=== PATIENT | female | born 1930 | race Caucasian/White ===

== ENCOUNTER 2017-06-22 08:46 | Inpatient (IN) | payer OTHER ==
[2017-06-22] MEDS ORDERED: FUROSEMIDE 40 MG/4 ML VIAL ONE (09:24)
[2017-06-22] MEDS ORDERED: LEVALBUTEROL 1.25 MG/3 ML NEB ONE (09:24)
[2017-06-22] MEDS ORDERED: IPRATROPIUM BROM 0.5MG/2.5ML ONE (09:24)
[2017-06-22 09:39] LABS: Absolute Monocytes 0.6 K/uL (0.1-1.3); Absolute Neutrophil 4.9 K/uL (1.8-8.0); Basophils % 0.5 % (0-1.3); Eosinophils % 11.3 % (0-4.4); Hematocrit 25.6 % (36.0-45.0); Lymphocytes % 13.6 % (15.3-44.8); MCH 29.1 pg (27.0-35.0); MCV 88.6 fL (80-100); MPV 8.9 fL (7.6-11.3); Monocytes % 8.5 % (3.3-12.3); RBC Red Blood Cell Count 2.89 M/uL (3.86-4.86)
[2017-06-22 09:43] LABS: Protime INR 0.97
[2017-06-22 09:50] LABS: Potassium 3.9 mEq/L (3.6-5.0)
[2017-06-22 09:51] LABS: Magnesium 2.2 mg/dL (1.8-2.5)
--- NOTE | 2017-06-22 10:24 | RAD REPORT ---
EXAM DESCRIPTION: Td Single View06/22/2017 9:20 am CLINICAL HISTORY: sob COMPARISON: none FINDINGS: Mild bilateral interstitial lung opacities are present. The heart is mildly enlarged. Pac emaker leads are in place IMPRESSION: Mild CHF
[2017-06-22 11:13] LABS: Urine Blood NEGATIVE (NEG); Urine Glucose NEGATIVE (NEG); Urine Protein 2+ (NEG); Urine Specific Gravity 1.015 (1.005-1.030); Urine pH 5.5 (5.0-7.0)
--- NOTE | 2017-06-22 11:33 | ER ---
Nurse's Notes [facility] Name: Bárbara Thakkar Age: 87 yrs Sex: Female : 1930 Arrival Date: 06/22/2017 Time: 08:51 Bed 2 Private MD: Diagnosis: Unspecified combined systolic (congestive) and diastolic (congestive) heart failure;Acute pulmonary edema;Dyspnea, unspecified Presentation: 06/22 08:51 Presenting complaint: EMS states: Hx of COPD and CHF, c/o SOB x 3 days which has become ph increasingly worse, spo2 94% on 4L home o2, pt usually uses 2L continuous, breathing tx and Solu-Medrol administered, pt also c/o increased swelling in lower extremities. Transition of care: patient was not received from another setting of care. Onset of symptoms was June 22, 2017. Initial Sepsis Screen: Does the patient meet any 2 criteria? No. Patient's initial sepsis screen is negative. Does the patient have a suspected source of infection? No. Patient's initial sepsis screen is negative. Care prior to arrival: None. 08:51 Method Of Arrival: EMS: [facility] ph 08:51 Acuity: CECE 2 ph Triage Assessment: 09:00 Respiratory: Onset: The symptoms/episode began/occurred gradually. ph Historical: - Allergies: 08:56 acetylcysteine; ph 08:56 Ciprofloxacin; ph 08:56 Iodinated Contrast Media - IV Dye; ph 08:56 PENICILLINS; ph - Home Meds: 12:32 Advair Diskus 250-50 mcg/dose Inhl dsdv 1 puff 2 times per day [Active]; albuterol ph sulfate 2.5 mg /3 mL (0.083 %) Inhl nebu [Active]; amlodipine 10 mg tab 1 tab once daily [Active]; aspirin 81 mg Oral chew 1 tab once daily [Active]; carvedilol 25 mg Oral tab 1 tab 2 times per day [Active]; Cozaar 100 mg Oral tab 1 tab once daily [Active]; ferrous gluconate 240 mg (27 mg iron) Oral tab daily [Active]; ipratropium bromide 0.02 % inhalation soln [Active]; Lasix 20 mg Oral tab 1 tab once daily [Active]; Plavix 75 mg Oral tab 1 tab once daily [Active]; pravastatin 80 mg Oral tab 1 tab once daily [Active]; - PMHx: 12:32 COPD; High Cholesterol; Hypertension; Pacemaker; ph - PSHx: 12:32 Appendectomy; Tonsillectomy; Stents; ph - Immunization history:: Adult Immunizations unknown. - Social history:: Smoking status: Patient/guardian denies using tobacco. - Family history:: not pertinent. - Hospitalizations: : No recent hospitalization is reported. Screenin:57 Abuse screen: Denies threats or abuse. Denies injuries from another. Nutritional ph screening: No deficits noted. Tuberculosis screening: No symptoms or risk factors identified. Fall Risk None identified. Assessment: 09:00 General: Appears in no apparent distress. uncomfortable, Behavior is calm, cooperative, ph appropriate for age, Denies fever. Pain: Denies pain. Neuro: Level of Consciousness is awake, alert, obeys commands, Oriented to person, place, time, situation. Cardiovascular: Reports shortness of breath, Denies chest pain, nausea, vomiting, Capillary refill < 3 seconds Patient's skin is warm and dry. Edema is 3+ to right wrist, right hand, left midcalf, left ankle, left foot, right midcalf, right ankle and right foot Rhythm is regular. Respiratory: Reports shortness of breath at rest cough that is Airway is patent Respiratory effort is even, labored, Respiratory pattern is tachypnea Breath sounds with crackles in left posterior lower lobe and right posterior lower lobe Breath sounds with wheezes bilaterally. the patient has moderate shortness of breath. GI: No signs and/or symptoms were reported involving the gastrointestinal system. Derm: Skin is intact, is fragile, is thin, Skin is pink, warm \T\ dry. Musculoskeletal: Circulation, motion, and sensation intact. Range of motion: intact in all extremities. 10:01 Reassessment: Patient appears in no apparent distress at this time. Patient and/or ph family updated on plan of care and expected duration. Pain level reassessed. Patient is alert, oriented x 3, equal unlabored respirations, skin warm/dry/pink. Pt resting quietly, neb mask in place, denies pain, VSS, will continue to monitor. 12:28 Reassessment: Patient appears in no apparent distress at this time. Patient and/or ph family updated on plan of care and expected duration. Pain level reassessed. Patient is alert, oriented x 3, equal unlabored respirations, skin warm/dry/pink. Pt resting quietly w/ eyes closed, respirations even and unlabored, awakens easily, deniers pain and reports that SOB is improving, VSS, awaiting admit orders and room assignment. 13:55 Reassessment: Patient appears in no apparent distress at this time. No changes from ph previously documented assessment. Patient and/or family updated on plan of care and expected duration. Pain level reassessed. Attempted to call report, receiving nurse at lunch, will call back. 14:20 Reassessment: Report called to JOSSELYN Baeza. ph Vital Signs: 08:54 BP 130 / 54; Pulse 62; Resp 24; Temp 97.6; Pulse Ox 100% on Nebulizer Mask; Weight ph 61.23 kg; Height 4 ft. 11 in. (149.86 cm); Pain 0/10; 08:54 BP 123 / 60; Pulse 64; Resp 24; Pulse Ox 100% on Nebulizer Mask; ph 10:15 BP 127 / 64; Pulse 68; Resp 24; Pulse Ox 98% on 4 lpm NC; ph 11:30 BP 125 / 62; Pulse 67; Resp 18; Pulse Ox 99% on 4 lpm NC; ph 12:33 BP 124 / 68; Pulse 76; Resp 18; Pulse Ox 99% on 4 lpm NC; ph 13:58 BP 130 / 66; Pulse 70; Resp 18; Temp 97.2; Pulse Ox 99% on 2 lpm NC; ph 08:54 Body Mass Index 27.26 (61.23 kg, 149.86 cm) ph ED Course: 08:51 Patient arrived in ED. ph 08:53 Tommie Conley MD is Attending Physician. rn 08:54 Triage completed. ph 08:57 Arm band placed on. EKG completed in triage. Results shown to MD. ph 08:57 Patient has correct armband on for positive identification. Placed in gown. Bed in low ph position. Call light in reach. air sampling and monitoring on. Pulse ox on. NIBP on. Warm blanket given. 09:00 Brandi Decker RN is Primary Nurse. ph 09:10 Inserted saline lock: 20 gauge in left antecubital area, using aseptic technique. Blood ph collected. 09:17 X-ray completed. Portable x-ray completed in exam room. Patient tolerated procedure jr1 well. 09:18 XRAY CXR (1 view) In Process Unspecified. EDMS 10:04 No provider procedures requiring assistance completed. Patient admitted, IV remains in ph place. 11:32 Chrissy More MD is Hospitalizing Provider. 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 ph 13:30 Urine: 550ml; Total: 850ml. ph Outcome: 11:32 Decision to Hospitalize by Provider. rn 14:41 Patient left the ED. ph 14:41 Admitted to Tele accompanied by tech, via wheelchair, room 409, with oxygen, with chart.ph 14:41 Condition: stable 14:41 Instructed on the need for admit. Signatures: Dispatcher [employer] EDMS Navdeep Mariah [email or web address] Tommie Conley MD MD rn Hall, Patricia, RN RN ph Corrections: (The following items were deleted from the chart) 10:05 09:00 Respiratory: Reports shortness of breath at rest cough that is Airway is patent ph Respiratory effort is even, labored, Respiratory pattern is tachypnea ph 10:09 08:54 Pulse 62bpm; Resp 24bpm; Pulse Ox 100% Nebulizer Mask; Temp 97.6F; 61.23 kg; ph Height 4 ft. 11 in.; BMI: 27.2; Pain 0/10; ph
--- NOTE | 2017-06-22 11:33 | EDPHYS ---
Physician Documentation [facility] Name: Bárbara Thakkar Age: 87 yrs Sex: Female : 1930 Arrival Date: 06/22/2017 Time: 08:51 Bed 2 Private MD: ED Physician Tommie Conley HPI: 06/22 09:30 This 87 yrs old Female presents to ER via EMS with complaints of Shortness Of rn Breath. 09:30 The patient has shortness of breath at rest, with light activity. rn 09:30 Onset: The symptoms/episode began/occurred 3 day(s) ago. Duration: The symptoms are rn continuous. The patient's shortness of breath is aggravated by exertion, light activity, supine position, talking, walking. Associated signs and symptoms: Pertinent positives: non-productive cough, Pertinent negatives: fever. The patient has experienced similar episodes in the past. Reports 3 days of worsening sob, + non-productive cough, no fever, can only take a few steps before sob. . Historical: - Allergies: 08:56 acetylcysteine; ph 08:56 Ciprofloxacin; ph 08:56 Iodinated Contrast Media - IV Dye; ph 08:56 PENICILLINS; ph - Home Meds: 12:32 Advair Diskus 250-50 mcg/dose Inhl dsdv 1 puff 2 times per day [Active]; albuterol ph sulfate 2.5 mg /3 mL (0.083 %) Inhl nebu [Active]; amlodipine 10 mg tab 1 tab once daily [Active]; aspirin 81 mg Oral chew 1 tab once daily [Active]; carvedilol 25 mg Oral tab 1 tab 2 times per day [Active]; Cozaar 100 mg Oral tab 1 tab once daily [Active]; ferrous gluconate 240 mg (27 mg iron) Oral tab daily [Active]; ipratropium bromide 0.02 % inhalation soln [Active]; Lasix 20 mg Oral tab 1 tab once daily [Active]; Plavix 75 mg Oral tab 1 tab once daily [Active]; pravastatin 80 mg Oral tab 1 tab once daily [Active]; - PMHx: 12:32 COPD; High Cholesterol; Hypertension; Pacemaker; ph - PSHx: 12:32 Appendectomy; Tonsillectomy; Stents; ph - Immunization history:: Adult Immunizations unknown. - Social history:: Smoking status: Patient/guardian denies using tobacco. - Family history:: not pertinent. - Hospitalizations: : No recent hospitalization is reported. ROS: 09:30 Constitutional: Negative for fever, chills, and weight loss, Eyes: Negative for injury, rn pain, redness, and discharge, Cardiovascular: + edema of lower extremities Respiratory: + sob and cough Abdomen/GI: Negative for abdominal pain, nausea, vomiting, diarrhea, and constipation, Back: Negative for injury and pain, MS/Extremity: + bilateral lower ext swelling, 2+ edema Skin: Negative for injury, rash, and discoloration, Neuro: Negative for headache, weakness, numbness, tingling, and seizure. Exam: 09:30 Constitutional: This is a well developed, well nourished patient who is awake, alert, rn + mild tachypnea Head/Face: Normocephalic, atraumatic. Eyes: Pupils equal round and reactive to light, extra-ocular motions intact. Lids and lashes normal. Conjunctiva and sclera are non-icteric and not injected. Cornea within normal limits. Periorbital areas with no swelling, redness, or edema. Cardiovascular: Regular, no murmur Respiratory: + mild tachypnea, diffuse exp wheezing Abdomen/GI: Soft, non-tender, with normal bowel sounds. No distension or tympany. No guarding or rebound. No evidence of tenderness throughout. MS/ Extremity: 2+ pitting edema bilateral lower ext Neuro: Awake and alert, GCS 15, oriented to person, place, time, and situation. Cranial nerves II-XII grossly intact. Motor strength 5/5 in all extremities. Sensory grossly intact. Vital Signs: 08:54 BP 130 / 54; Pulse 62; Resp 24; Temp 97.6; Pulse Ox 100% on Nebulizer Mask; Weight ph 61.23 kg; Height 4 ft. 11 in. (149.86 cm); Pain 0/10; 08:54 BP 123 / 60; Pulse 64; Resp 24; Pulse Ox 100% on Nebulizer Mask; ph 10:15 BP 127 / 64; Pulse 68; Resp 24; Pulse Ox 98% on 4 lpm NC; ph 11:30 BP 125 / 62; Pulse 67; Resp 18; Pulse Ox 99% on 4 lpm NC; ph 12:33 BP 124 / 68; Pulse 76; Resp 18; Pulse Ox 99% on 4 lpm NC; ph 13:58 BP 130 / 66; Pulse 70; Resp 18; Temp 97.2; Pulse Ox 99% on 2 lpm NC; ph 08:54 Body Mass Index 27.26 (61.23 kg, 149.86 cm) ph MDM: 08:53 Patient medically screened. rn 11:25 Differential diagnosis: Bronchitis CHF exacerbation, Chronic Obstructive Pulmonary rn Disease Myocardial Infarction pneumonia, Pneumothorax pulmonary edema. Data reviewed: vital signs, nurses notes, lab test result(s), EKG, radiologic studies, plain films, and as a result, I will admit patient. Counseling: I had a detailed discussion with the patient and/or guardian regarding: the historical points, exam findings, and any diagnostic results supporting the discharge/admit diagnosis, lab results, radiology results, the need for further work-up and treatment in the hospital. Admission orders: after a detailed discussion of the patient's condition and case, the admit orders are written by me. 06/22 08:57 Order name: Blood Culture Adult (2) rn 06/22 08:57 Order name: BMP; Complete Time: 10:05 rn 06/22 08:57 Order name: BNP; Complete Time: 10:05 rn 06/22 08:57 Order name: CBC with Diff; Complete Time: 10:05 rn 06/22 08:57 Order name: Magnesium; Complete Time: 10:05 rn 06/22 08:57 Order name: PT-INR; Complete Time: 10:05 rn 06/22 08:57 Order name: XRAY CXR (1 view); Complete Time: 10:26 rn 06/22 08:57 Order name: Ptt, Activated; Complete Time: 10:05 rn 06/22 08:57 Order name: Troponin (emerg Dept Use Only); Complete Time: 10:05 rn 06/22 08:58 Order name: Blood Culture EDMS 06/22 10:54 Order name: Urine Dipstick--Ancillary (enter results) eb 06/22 08:57 Order name: EKG; Complete Time: 08:58 rn 06/22 08:57 Order name: Cardiac monitoring; Complete Time: 09:46 rn 06/22 08:57 Order name: EKG - Nurse/Tech; Complete Time: 09:46 rn 06/22 08:57 Order name: IV Saline Lock; Complete Time: 09:46 rn 06/22 08:57 Order name: Labs collected and sent; Complete Time: :46 rn 06/22 08:57 Order name: O2 Per Protocol; Complete Time: : rn 06/22 08:57 Order name: O2 Sat Monitoring; Complete Time: : rn Administered Medications: 09:15 Drug: AtroVENT Aerosol 0.5 mg Route: Inhalation; ph 11:00 Follow up: Response: No adverse reaction; Wheezing diminished ph 09:15 Drug: Xopenex (3) 1.25 mg Route: Inhalation; ph 11:00 Follow up: Response: No adverse reaction; Wheezing diminished ph 09:15 Drug: Lasix 40 mg Route: IVP; Site: left antecubital; ph 13:30 Follow up: Urine output 550 ml; Response: No adverse reaction ph 09:46 Not Given (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 Preliminary diagnosis are Unspecified combined systolic (congestive) and diastolic (congestive) heart failure, Acute pulmonary edema, Dyspnea, unspecified. - Bed requested for Telemetry/MedSurg (Inpatient). - Status is Inpatient Admission. ph - Condition is Stable. - Problem is an acute exacerbation. - Symptoms have improved. UTI on Admission? No Signatures: Dispatcher [employer] EDMS Tommie Conley MD MD rn Hall, Patricia, RN RN ph Botello, Elizabeth eb Corrections: (The following items were deleted from the chart) 11:36 11:32 Hospitalization Ordered by Chrissy More MD for Inpatient Admission. Preliminary eb diagnosis is Unspecified combined systolic (congestive) and diastolic (congestive) heart failure; Acute pulmonary edema; Dyspnea, unspecified. Bed requested for Telemetry/MedSurg (Inpatient). Status is Inpatient Admission. Condition is Stable. Problem is an acute exacerbation. Symptoms have improved. UTI on Admission? No. rn 12:29 11:36 06/22/2017 11:32 Hospitalization Ordered by Chrissy More MD for Inpatient eb Admission. Preliminary diagnosis is Unspecified combined systolic (congestive) and diastolic (congestive) heart failure; Acute pulmonary edema; Dyspnea, unspecified. Bed requested for Telemetry/MedSurg (Inpatient). Status is Inpatient Admission. Condition is Stable. Problem is an acute exacerbation. Symptoms have improved. UTI on Admission? No. eb 12:38 12:29 06/22/2017 11:32 Hospitalization Ordered by Chrissy More MD for Inpatient eb Admission. Preliminary diagnosis is Unspecified combined systolic (congestive) and diastolic (congestive) heart failure; Acute pulmonary edema; Dyspnea, unspecified. Bed requested for Telemetry/MedSurg (Inpatient). Status is Inpatient Admission. Condition is Stable. Problem is an acute exacerbation. Symptoms have improved. UTI on Admission? No. eb 14:41 12:38 06/22/2017 11:32 Hospitalization Ordered by Chrissy More MD for Inpatient ph Admission. Preliminary diagnosis is Unspecified combined systolic (congestive) and diastolic (congestive) heart failure; Acute pulmonary edema; Dyspnea, unspecified. Bed requested for Telemetry/MedSurg (Inpatient). Status is Inpatient Admission. Condition is Stable. Problem is an acute exacerbation. Symptoms have improved. UTI on Admission? No. eb
[2017-06-22] MEDS ORDERED: ACETAMINOPHEN 500 MG TAB PO PRN (12:13)
[2017-06-22] MEDS ORDERED: ONDANSETRON 4 MG/2 ML VIAL IV PRN (12:13)
[2017-06-22] MEDS: IPRATROPIUM BROM 0.5MG/2.5ML NEB SCH ×2 (14:00→19:50)
[2017-06-22] MEDS: FUROSEMIDE 40 MG/4 ML VIAL IV SCH (16:50)
[2017-06-22] MEDS: ENOXAPARIN 30 MG/0.3 ML SQ SCH (16:50)
[2017-06-22] MEDS: CARVEDILOL 25 MG TAB PO SCH (17:07)
[2017-06-22] MEDS: FLUTICASONE IH SCH (21:00)
[2017-06-22] MEDS: SALMETEROL IH SCH (21:00)
[2017-06-22] MEDS ORDERED: HOME MED 1 EA UNK (Pravastatin [Pravachol*] 80 MG) PO SCH (21:00)
[2017-06-22] MEDS: predniSONE 10 MG TAB PO SCH (22:04)
[2017-06-22] MEDS: ATORVASTATIN 10 MG TAB PO SCH (22:04)
--- NOTE | 2017-06-22 23:48 | HP ---
Date of Admission: 06/22/2017 Primary Care Physician: Abhinav Curiel DO. Chief Complaint: Shortness of breath. History Of Present Illness: The patient is an 87-year-old female with past medical history of COPD, CHF, hypertension, atrial fibrillation, GERD, anemia, history of AR, status post pacemaker, who was in her usual state of health until the day prior to admission when the patient started having sudden onset of shortness of breath. The patient does state some generalized weakness. Denies any fevers, chills. Reports some lower extremity edema. She states that she decreased her dose of Lasix as she thought that the 40 mg was too high and she had finished off a course of steroids recently. The patient denies any cough or sputum production. No ill contacts. The patient comes in for further evaluation of her shortness of breath. Her symptoms are constant, moderate, progressively worsening. No alleviating or aggravating factors. In the ER, the patient was found to be slightly tachypneic. Her workup revealed normal white count. Her BNP was elevated at 1200. Her chest x-ray showed mild CHF pattern. The patient was then referred for admission. When seen in the ER, the patient was awake, alert, oriented x3, in some mild distress. Past Medical History: COPD, hypertension, atrial fibrillation, GERD, anemia, AR. Surgical History: Permanent pacemaker [place] [address] Narvaez, coronary stents, kidney stents and stent to each leg, bilateral lens implants, bilateral carpal tunnel repair, hysterectomy, appendectomy, tonsillectomy. Allergies: TO ACETYLCYSTEINE, IODINATED CONTRAST, CIPRO, PENICILLIN. Medications: Reviewed. Social History: The patient is a former heavy smoker. No alcohol use or illicit drug use. Lives at home with her son. Uses a walker for ambulation. Family History: Mother of heart disease and diabetes. Mother of an AR. Sister has diabetes. Review of Systems: An 11-point system reviewed, negative except as per HPI. Physical Examination: Vital Signs: Blood pressure 130/54, pulse 62, respirations 24, temperature 97.6 , pulse ox 100% on nebulizer mask. General: Awake, alert, oriented x3. Some mild distress. Elderly female. HEENT: Normocephalic, atraumatic. PERRLA. EOMI. Dry mucous membranes. Oropharynx is clear. Conjunctivae are anicteric. Neck: Supple. Trachea midline. CV: S1, S2. Regular rate and rhythm. Peripheral pulses are weak bilaterally. No murmurs. Respiratory: Diminished breath sounds. Some crackles heard at the bases. No wheezing. No stridor. No use of accessory muscles. Gastrointestinal: Abdomen is soft, nontender, nondistended. Positive bowel sounds. No guarding or rigidity. Extremities: No clubbing, cyanosis. The patient does have lower extremity edema. Skin: The patient has excoriated skin on the lower extremities and chronic venous stasis changes of the lower extremities. Neuro: Cranial nerves 2 through 12 intact grossly. No focal neurological deficits. Strength is 5/5 bilateral upper and lower extremities. Sensation intact to light touch. Speech is normal. No facial asymmetry. Psych: Mood is okay. Affect is full. Insight and judgment are good. Laboratory Data: UA negative. Sodium 133, potassium 3.9, chloride 93, CO2 33, BUN 26, creatinine 1.89, glucose 160, calcium 9.2, magnesium 2.2. Troponin 0.03. BNP 1196. INR 0.97. WBC 7.5, H and H 8.4 and 25.6, platelets 159, neutrophils 66%. Chest x-ray shows mild CHF pattern. Assessment And Plan: An 87-year-old female with: 1. Acute diastolic heart failure. EF of 62% from April of 2017. We will continue on congestive heart failure guidelines. We will continue with diuresis. We will obtain cardiology consultation. 2. Chronic obstructive pulmonary disease, chronic bronchitis. We will continue nebulizer treatments. No wheezing. 3. Essential hypertension. Resume home medications. 4. Atrial fibrillation, paroxysmal. 5. Status post pacemaker. 6. Gastroesophageal reflux disease without esophagitis. Continue PPI. 7. Anemia of chronic disease. We will monitor H and H. 8. History of myocardial infarction, coronary artery disease. [place] artery and [place] heart without angina. 9. Gastrointestinal and deep venous thrombosis prophylaxis, addressed. Plan: Admit the patient to Med-Surg, [facility] as inpatient. No MPOA or living will Spoke w son who agrees w DNR. /ADITI Voice ID: [id number] [id number]
[2017-06-23] MEDS: IPRATROPIUM BROM 0.5MG/2.5ML NEB SCH ×4 (01:49→20:22)
[2017-06-23 05:18] LABS: Absolute Lymphocytes (CBC) 0.6 K/uL (0.7-4.9); Absolute Monocytes 0.2 K/uL (0.1-1.3); Absolute Neutrophil 5.4 K/uL (1.8-8.0); Basophils % 0.1 % (0-1.3); Hematocrit 24.9 % (36.0-45.0); Lymphocytes % 9.4 % (15.3-44.8); MCH 28.8 pg (27.0-35.0); MCV 88.9 fL (80-100); Monocytes % 2.9 % (3.3-12.3)
[2017-06-23 05:33] LABS: Albumin 3.3 g/dL (3.2-5.5); Bilirubin Total 0.4 mg/dL (0.3-1.2); Potassium 3.9 mEq/L (3.6-5.0); Protein, Total 5.3 g/dL (6.0-8.3)
[2017-06-23] MEDS: CARVEDILOL 25 MG TAB PO SCH ×2 (05:49→17:38)
[2017-06-23 06:30] LABS: Blood Morphology Comment NOT SEEN (NOT SEEN); Platelet Estimate ADEQ; Urine White Blood Cell Casts OK
[2017-06-23] MEDS: FLUTICASONE IH SCH ×2 (09:00→21:00)
[2017-06-23] MEDS: SALMETEROL IH SCH ×2 (09:00→21:00)
[2017-06-23] MEDS: predniSONE 10 MG TAB PO SCH ×2 (09:56→22:22)
[2017-06-23] MEDS: LOSARTAN POTASSIUM 50 MG TABLET PO SCH (09:56)
[2017-06-23] MEDS: FUROSEMIDE 40 MG/4 ML VIAL IV SCH ×2 (09:56→17:37)
--- NOTE | 2017-06-23 14:07 | PN ---
Date of Progress Note: 06/23/2017 Subjective: The patient is seen and examined. Chart reviewed and case discussed with RN. The patie nt states she is doing better, however, still getting dyspneic upon exertion. Review of Systems: Negative except as above. Medications: Reviewed. Physical Examination: Vital signs: Temperature 97.4, heart rate 79, blood pressure 107/55, respirations 14, O2 92% on 2 L via nasal cannula. General: Awake, alert, oriented, has some mild distress. Elderly female, slightly ill appearing. CV: S1, S2. Peripheral pulses present. Regular rate and rhythm and rhythm. Respiratory: Diminished breath sounds. Some crackles heard. Mild wheezing. Gastrointestinal: Abdomen is soft, nontender, nondistended. Positive bowel sounds. Extremities: No clubbing, cyanosis, or some mild edema. Neurologic: Nonfocal. Laboratory Data: Sodium 131, potassium 3.9, chloride 93, CO2 31, BUN 33, creatinine 1.85, glucose 17 4, calcium 8.8. WBC 6.2, H and H 8.1, 24.9, platelets 159. Blood cultures, no growth to date. Assessment And Plan: An 87-year-old female with: 1.Acute diastolic heart failure. EF 62% from recent echo. We will continue congestive heart failur e guidelines, diuresis with Lasix. The patient refused Cardiology consultation. 2.Chronic obstructive pulmonary disease. The patient has chronic bronchitis with some acute exacerb ation. We will continue nebulizer treatments. 3.Essential hypertension. Continue home medications. 4.Atrial fibrillation, paroxysmal. 5.Status post pacemaker. 6.Gastroesophageal reflux disease without esophagitis. 7.Anemia of chronic disease. We will monitor H and H. 8.History of myocardial infarction, coronary artery disease, [place] artery and [place] heart without angina, stable. 9.Gastrointestinal and deep venous thrombosis prophylaxis addressed. Plan: Continue diuresis. Breathing treatments. Monitor daily weight, I's and O's. Likely dischar ge in the next 24-48 hours if continues to improve. The patient refusing physical therapy and had re cent stay in SNF. SA/MODL Voice ID: [id number] Report ID: [id number]
[2017-06-23] MEDS: ENOXAPARIN 30 MG/0.3 ML SQ SCH (17:37)
[2017-06-23] MEDS: ATORVASTATIN 10 MG TAB PO SCH (22:22)
[2017-06-24] MEDS: IPRATROPIUM BROM 0.5MG/2.5ML NEB SCH ×4 (01:19→20:07)
[2017-06-24 04:16] LABS: Absolute Lymphocytes (CBC) 0.6 K/uL (0.7-4.9); Absolute Monocytes 0.4 K/uL (0.1-1.3); Absolute Neutrophil 6.5 K/uL (1.8-8.0); Basophils % 0.2 % (0-1.3); Eosinophils % 0.1 % (0-4.4); Lymphocytes % 8.3 % (15.3-44.8); MCH 29.6 pg (27.0-35.0); MCV 89.4 fL (80-100); MPV 8.6 fL (7.6-11.3); Monocytes % 5.4 % (3.3-12.3); RBC Red Blood Cell Count 2.69 M/uL (3.86-4.86)
[2017-06-24 04:37] LABS: Albumin 3.2 g/dL (3.2-5.5); Bilirubin Total 0.4 mg/dL (0.3-1.2); Potassium 4.6 mEq/L (3.6-5.0); Protein, Total 5.5 g/dL (6.0-8.3)
[2017-06-24] MEDS: CARVEDILOL 25 MG TAB PO SCH ×2 (05:48→16:59)
--- NOTE | 2017-06-24 07:57 | RAD REPORT ---
EXAM DESCRIPTION: Td Lima And Geraldo (2 Views)06/24/2017 6:29 am CLINICAL HISTORY: Shortness of breath COMPARISON: June 22 FINDINGS: Mild bilateral interstitial lung opacities are seen. Small pleural effusions are present. . The heart is mildly enlarged. Pacemaker leads are in place. IMPRESSION: Mild CHF
[2017-06-24] MEDS: predniSONE 10 MG TAB PO SCH ×2 (08:46→20:24)
[2017-06-24] MEDS: FUROSEMIDE 40 MG/4 ML VIAL IV SCH ×2 (08:46→16:59)
[2017-06-24] MEDS: LOSARTAN POTASSIUM 50 MG TABLET PO SCH (08:46)
[2017-06-24] MEDS: FLUTICASONE IH SCH ×2 (08:47→20:24)
[2017-06-24] MEDS: SALMETEROL IH SCH ×2 (08:47→20:24)
[2017-06-24] MEDS: ALBUTEROL 2.5 MG/3 ML NEB SOL NEB PRN ×2 (11:35→20:07)
[2017-06-24] MEDS ORDERED: SODIUM CHLORIDE 0.9% 10ML INJ IV PRN (13:55)
[2017-06-24] MEDS: ENOXAPARIN 30 MG/0.3 ML SQ SCH (16:59)
--- NOTE | 2017-06-24 19:13 | P.PN ---
Date of Service: 06/24/17 Subjective: The patient is seen and examined. Chart reviewed and case discussed with RN. The patient states she is doing better, however, still getting dyspneic upon exertion but working with PT. Walked about 20 feet today Review of Systems: Negative except as above. Medications: Reviewed. Physical Examination: Vital signs: Temp Pulse Resp BP Pulse Ox 97.0 F 88 18 132/65 100 06/24/17 16:00 06/24/17 16:59 06/24/17 16:00 06/24/17 16:59 06/24/17 16:00 General: Awake, alert, oriented, has some mild distress. Elderly female, slightly ill appearing. CV: S1, S2. Peripheral pulses present. Regular rate and rhythm and rhythm. Respiratory: Diminished breath sounds. Some crackles heard. Mild wheezing. Gastrointestinal: Abdomen is soft, nontender, nondistended. Positive bowel sounds. Extremities: No clubbing, cyanosis, or some mild edema. Neurologic: Nonfocal. Laboratory Data: Sodium 131, potassium 3.9, chloride 93, CO2 31, BUN 33, creatinine 1.85, glucose 174, calcium 8.8. WBC 6.2, H and H 8.1, 24.9, platelets 159. Blood cultures, no growth to date. Assessment And Plan: An 87-year-old female with: 1. Acute diastolic heart failure. - EF 62% from recent echo. - We will continue congestive heart failure guidelines, diuresis with Lasix. - Cardiology consulted. Dr Rao On board. 2.Chronic obstructive pulmonary disease. - The patient has chronic bronchitis with some acute exacerbation. - We will continue nebulizer treatments and steriods 3.Essential hypertension. Continue home medications. 4.Atrial fibrillation, paroxysmal. 5.Status post pacemaker. 6.Gastroesophageal reflux disease without esophagitis. 7.Anemia of chronic disease. We will monitor H and H. 8.History of myocardial infarction, coronary artery disease, [place] artery and [place] heart without angina, stable. 9.Gastrointestinal and deep venous thrombosis prophylaxis addressed. Plan: Continue diuresis. Breathing treatments. Monitor daily weight, I's and O's. Likely discharge in the next 24-48 hours if continues to improve.
[2017-06-24] MEDS: ATORVASTATIN 10 MG TAB PO SCH (20:24)
[2017-06-25] MEDS: IPRATROPIUM BROM 0.5MG/2.5ML NEB SCH ×4 (01:18→19:26)
[2017-06-25] MEDS: ALBUTEROL 2.5 MG/3 ML NEB SOL NEB PRN ×3 (01:18→19:26)
[2017-06-25 04:40] LABS: Absolute Lymphocytes (CBC) 0.6 K/uL (0.7-4.9); Absolute Monocytes 0.4 K/uL (0.1-1.3); Absolute Neutrophil 5.8 K/uL (1.8-8.0); Basophils % 0.1 % (0-1.3); Eosinophils % 0.1 % (0-4.4); Hematocrit 25.4 % (36.0-45.0); Lymphocytes % 9.2 % (15.3-44.8); MCH 28.8 pg (27.0-35.0); MCV 89.2 fL (80-100); MPV 8.8 fL (7.6-11.3); Monocytes % 5.9 % (3.3-12.3); RBC Red Blood Cell Count 2.84 M/uL (3.86-4.86)
[2017-06-25] MEDS: CARVEDILOL 25 MG TAB PO SCH ×2 (05:17→18:44)
[2017-06-25 05:19] LABS: ALT/SGPT 20 IU/L (10-60); AST/SGOT 18 IU/L (10-42); Albumin 3.4 g/dL (3.2-5.5); Alkaline Phosphatase 60 IU/L (42-121); BUN Blood Urea Nitrogen 49 mg/dL (6-20); Bicarbonate 33 mEq/L (21-31); Bilirubin Total 0.4 mg/dL (0.3-1.2); Glucose Level 147 mg/dL (65-120); Phosphorus 4.2 mg/dL (2.5-4.3); Potassium 4.5 mEq/L (3.6-5.0); Protein, Total 5.7 g/dL (6.0-8.3); Sodium Level 135 mEq/L (135-145); Uric Acid 7.5 mg/dL (2.6-8.0)
[2017-06-25 05:21] LABS: Folic Acid, (Folate) > 22.3 ng/ml (>5.21)
[2017-06-25 05:43] LABS: Urine Appearance CLEAR; Urine Bilirubin NEGATIVE (NEG); Urine Blood NEGATIVE (NEG); Urine Color YELLOW; Urine Glucose NEGATIVE (NEG); Urine Protein 1+ (NEG); Urine Urobilinogen 0.2 mg/dL (0.2-1.0); Urine pH 6.5 (5.0-7.0)
[2017-06-25 05:54] LABS: UR MICROALBUMIN 14.7 mg/dL (< 1.9)
[2017-06-25 06:11] LABS: Urine Bacteria <20 /HPF (<20); Urine Culture Reflex Order NOT NEEDED; Urine RBC NONE SEEN /HPF (NONE SEEN)
--- NOTE | 2017-06-25 08:18 | P.CNS ---
Date of Consult: 06/25/17 Reason for Consult: FANTASMA/ CKD Requesting Physician: Tara Cueto Primary Care Provider: Dr. Curiel Chief Complaint: Dyspnea History of Present Illness: Hx of CKD for 40 years. No NSAIDs. No bladder emptying difficulties. 09:30 This 87 yrs old Female presents to ER via EMS with complaints of Shortness Of rn Breath. 09:30 The patient has shortness of breath at rest, with light activity. rn 09:30 Onset: The symptoms/episode began/occurred 3 day(s) ago. Duration: The symptoms are rn continuous. The patient's shortness of breath is aggravated by exertion, light activity, supine position, talking, walking. Associated signs and symptoms : Pertinent positives: non-productive cough, Pertinent negatives: fever. The patient has experienced similar episodes in the past. Reports 3 days of worsening sob , + non-productive cough, no fever, can only take a few steps before sob. Allergies acetylcysteine [From Mucomyst] Allergy (Mild, Verified 06/22/17 15:49) Shortness of breath Iodinated Contrast- Oral and IV Dye Allergy (Verified 06/22/17 15:49) Itching/Hives/Rash ciprofloxacin Adverse Reaction (Mild, Verified 06/22/17 15:49) muscle spasm Penicillins Adverse Reaction (Mild, Verified 06/22/17 15:49) Itching Home medications list reviewed: Yes Home Medications: Carvedilol [Coreg*] 25 mg PO BID 10/01/14 Fluticasone/Salmeterol [Advair 250/50 Diskus*] 1 inh IH BID 10/01/14 Pravastatin [Pravachol*] 80 mg PO BEDTIME 10/01/14 Albuterol Sulfate [Albuterol Sulfate 0.083% Neb Soln] 0.5 vial IH Q6H PRN Ipratropium Elliott 0.2 mg IH Q6H PRN 04/24/17 Furosemide [Lasix] 40 mg PO DAILY 30 Days #30 tab 04/26/17 Prednisone [Deltasone] 10 mg PO BID #20 tab 04/26/17 - Past Medical/Surgical History Diabetic: No -: copd -: htn -: afib -: GERD -: ANEMIA -: MA -: Permanent Pacemaker to upper rt chest-Sep [address] Narvaez -: Cornary stents -: kidney stents and stents to ea leg -: Bilateral lens implants -: Bilateral carpal tunnel repair -: Hysterectomy -: Appendectomy -: Tonsillectomy - Family History Mother Medical History: Heart disease, Diabetes Notes: of MA Sister Medical History: Diabetes - Social History Smoking Status: Never smoker Alcohol use: No CD- Drugs: No Caffeine use: Yes Place of Residence: Home Review of Systems 10-point ROS is otherwise unremarkable Respiratory: Cough, Shortness of Breath Cardiovascular: Edema Neurological: Weakness Physical Examination Temp Pulse Resp BP Pulse Ox 97.7 F 95 H 20 104/66 98 06/25/17 08:00 06/25/17 08:00 06/25/17 08:00 06/25/17 08:00 06/25/17 08:00 General: Oriented x3, Cooperative HEENT: Mucous membr. moist/pink Neck: Supple Respiratory: Expiratory wheezes Cardiovascular: No rubs, Edema Gastrointestinal: Soft and benign, Non-distended Musculoskeletal: No clubbing, No contractures Integumentary: No rashes, No cyanosis Neurological: Normal speech Blood work reviewed in the chart. Initial serum creatinine 1.89 Imagings Data: EXAM DESCRIPTION: Td [place] And Lat (2 Views)06/24/2017 6:29 am CLINICAL HISTORY: Shortness of breath COMPARISON: June 22 FINDINGS: Mild bilateral interstitial lung opacities are seen. Small pleural effusions are present. . The heart is mildly enlarged. Pacemaker leads are in place. IMPRESSION: Mild CHF EXAM DESCRIPTION: US - Renal Ultrasound-Complete - 04/24/2017 9:42 am CLINICAL HISTORY: . Chronic renal disease. Renal mass COMPARISON: March 2016 cat scan FINDINGS: The right kidney measures 11 cm with a mildly increased echotexture. A 4 centimeter right renal cyst is present The left kidney measures 8 cm with a mildly increased echotexture. A 1.6 centimeter left renal cyst is seen. Hydronephrosis is not seen. Incidental note is made of small gallbladder polyp versus small gallston IMPRESSION: Increased renal echotexture consistent with parenchymal disease Bilateral renal cysts No hydronephrosis HEIGHT: 4 ft 9 in WEIGHT: 140 lb 6 oz DATE OF STUDY: 04-24-[address]: Jordi Valerio MD 2-DIMENSIONAL: YES M.MODE: YES DOPPLER: YES COLOR FLOW: YES TDS: NO PORTABLE: NO DEFINITY: NO BUBBLE STUDY: NO LEFT VENTRICULAR WALL MOTION: NORMAL DOPPLER/COLOR FLOW: MILD TO MODERATE MITRAL REGURGITATION. NO AORTIC STENOSIS / NO AORTIC REGURGITATION. COMMENTS: NORMAL LEFT VENTRICULAR EJECTION FRACTION. DILATED LEFT AND RIGHT ATRIA. MITRAL ANNULAR CALCIFICATION. AORTIC SCLEROSIS WITH NO AORTIC STENOSIS / NO AORTIC REGURGITATION. MILD TO MODERATE MITRAL REGURGITATION. Conclusions/Impression: A/ FANTASMA likely CRS and complicated by hypotension versus ATN. CKD III in the setting of HTN. Proteinuria. Hyponatremia, improving. Hyperglycemia concerning for DM and complicated by prednisone. IFG. Bilateral renal cysts. HTN. A/C Diastolic CHF with MR. Anemia in chronic illness. P/ Continue current POC and Medications. Reduce Losartan due to hypotension. Agree with diuresis. Check A1C. Transfuse PRBC as needed. Low sodium/ Low sugar diet. No NSAIDs. AM labs. Daily weight. Thank you kindly for the consultation.
[2017-06-25] MEDS: LOSARTAN POTASSIUM 50 MG TABLET PO SCH (09:00)
[2017-06-25] MEDS: FLUTICASONE IH SCH ×2 (09:00→20:29)
[2017-06-25] MEDS: SALMETEROL IH SCH ×2 (09:00→20:29)
[2017-06-25 09:44] LABS: A1c Component 0.37 mg/dL; Hemoglobin A1c 6.3 % (4-6.0)
[2017-06-25] MEDS: PANTOPRAZOLE 40 MG INJ IVP SCH (09:56)
[2017-06-25] MEDS: FUROSEMIDE 40 MG/4 ML VIAL IV SCH ×2 (09:56→18:41)
[2017-06-25] MEDS: predniSONE 10 MG TAB PO SCH ×2 (09:56→20:28)
--- NOTE | 2017-06-25 16:19 | P.PN ---
Date of Service: 06/25/17 Subjective: The patient is seen and examined. Chart reviewed and case discussed with RN. The patient states she is doing better, however, still getting dyspneic upon exertion but working with PT. Walked about 25 feet today. Kidney function improving. Review of Systems: Negative except as above. Medications: Reviewed. Physical Examination: Vital signs: Temp Pulse Resp BP Pulse Ox 97.0 F 91 H 20 131/73 93 06/25/17 16:00 06/25/17 16:00 06/25/17 16:00 06/25/17 16:00 06/25/17 16:00 General: Awake, alert, oriented, has some mild distress. Elderly female, slightly ill appearing. CV: S1, S2. Peripheral pulses present. Regular rate and rhythm and rhythm. Respiratory: Diminished breath sounds. Some crackles heard. Mild wheezing. Gastrointestinal: Abdomen is soft, nontender, nondistended. Positive bowel sounds. Extremities: No clubbing, cyanosis, or some mild edema. Neurologic: Nonfocal. Laboratory Data: Sodium 131, potassium 3.9, chloride 93, CO2 31, BUN 33, creatinine 1.85, glucose 174, calcium 8.8. WBC 6.2, H and H 8.1, 24.9, platelets 159. Blood cultures, no growth to date. Assessment And Plan: An 87-year-old female with: 1. Acute diastolic heart failure. - EF 62% from recent echo. - We will continue congestive heart failure guidelines, diuresis with Lasix. - Cardiology consulted. Dr Rao On board. 2.Chronic obstructive pulmonary disease. - The patient has chronic bronchitis with some acute exacerbation. - We will continue nebulizer treatments and steroids 3.Essential hypertension. Continue home medications. 4.Atrial fibrillation, paroxysmal. 5.Status post pacemaker. 6.Gastroesophageal reflux disease without esophagitis. 7.Anemia of chronic disease. We will monitor H and H. 8.History of myocardial infarction, coronary artery disease, [place] artery and [place] heart without angina, stable. 9.FANTASMA on chronic Kidney disease -Nephrology consulted. Appreciate reccs -Lowered Losartan. lab in AM 10.Gastrointestinal and deep venous thrombosis prophylaxis addressed. Plan: Likely discharge in the next 24-48 hours if continues to improve.
[2017-06-25] MEDS: ENOXAPARIN 30 MG/0.3 ML SQ SCH (18:41)
[2017-06-25] MEDS: ATORVASTATIN 10 MG TAB PO SCH (20:28)
[2017-06-26] MEDS: ALBUTEROL 2.5 MG/3 ML NEB SOL NEB PRN ×4 (01:17→19:25)
[2017-06-26] MEDS: IPRATROPIUM BROM 0.5MG/2.5ML NEB SCH ×4 (01:17→19:25)
[2017-06-26 04:13] LABS: Absolute Lymphocytes (CBC) 0.7 K/uL (0.7-4.9); Absolute Monocytes 0.3 K/uL (0.1-1.3); Absolute Neutrophil 5.8 K/uL (1.8-8.0); Basophils % 0.1 % (0-1.3); Eosinophils % 0.1 % (0-4.4); Hematocrit 25.8 % (36.0-45.0); Lymphocytes % 9.6 % (15.3-44.8); MCH 29.3 pg (27.0-35.0); MCV 89.4 fL (80-100); MPV 8.8 fL (7.6-11.3); Monocytes % 5.1 % (3.3-12.3); RBC Red Blood Cell Count 2.88 M/uL (3.86-4.86)
[2017-06-26 04:31] LABS: Albumin 3.3 g/dL (3.2-5.5); Bilirubin Total 0.5 mg/dL (0.3-1.2); Protein, Total 5.6 g/dL (6.0-8.3); Uric Acid 7.9 mg/dL (2.6-8.0)
[2017-06-26 05:24] LABS: Urine Appearance CLEAR; Urine Bilirubin NEGATIVE (NEG); Urine Blood TRACE (NEG); Urine Color YELLOW; Urine Glucose NEGATIVE (NEG); Urine Protein TRACE (NEG); Urine Specific Gravity <=1.005 (1.005-1.030); Urine Urobilinogen 0.2 mg/dL (0.2-1.0); Urine pH 6.5 (5.0-7.0)
[2017-06-26] MEDS: CARVEDILOL 25 MG TAB PO SCH ×2 (05:29→17:46)
[2017-06-26 05:40] LABS: Urine Culture Reflex Order NOT NEEDED
[2017-06-26 05:41] LABS: Urine Bacteria <20 /HPF (<20); Urine RBC NONE SEEN /HPF (NONE SEEN)
--- NOTE | 2017-06-26 07:01 | PN ---
Date of Progress Note: 06/24/2017 This is a followup visit because of her congestive heart failure and COPD exacerbation. The patient remained in sinus rhythm, afebrile, feeling much better. No specific complaint. Working with Physic al Therapy. Her lungs are clear. No rales, no wheezing, no edema. I will continue her present pennie men. Work with Physical Therapy. I will sign off her case. She can go home whenever it is okay sebastian Cueto. MISSY/ADITI Voice ID: [id number] Report ID: [id number]
[2017-06-26] MEDS: LOSARTAN POTASSIUM 50 MG TABLET PO SCH (09:00)
[2017-06-26] MEDS: FLUTICASONE IH SCH ×2 (09:00→20:42)
[2017-06-26] MEDS: predniSONE 10 MG TAB PO SCH ×2 (09:00→20:44)
[2017-06-26] MEDS: SALMETEROL IH SCH ×2 (09:00→20:42)
[2017-06-26] MEDS: PANTOPRAZOLE 40 MG INJ IVP SCH (09:38)
[2017-06-26] MEDS ORDERED: ALPRAZOLAM 0.5 MG TABLET PO ONE (09:44)
[2017-06-26] MEDS: FUROSEMIDE 40 MG/4 ML VIAL IV SCH ×2 (09:45→17:51)
[2017-06-26] MEDS ORDERED: LORazepam 2 MG/ML VIAL IV STA (09:54)
[2017-06-26 10:05] LABS: Arterial Blood Carboxyhemoglob 1.4 % (0-1.5); Blood O2 Saturation 96.6 % (92-98.5)
--- NOTE | 2017-06-26 10:46 | RAD REPORT ---
EXAM DESCRIPTION: RAD - Chest Single View - 06/26/2017 10:20 am CLINICAL HISTORY: Shortness of breath, wheezing COMPARISON: June 24 TECHNIQUE: AP portable chest image was obtained 1008 hours . FINDINGS: Lungs remain underinflated. Interstitial markings remain prominent. Central vasculature an d lung markings are prominent with heart size similar to the prior day study. Pacemaker remains in pl [place]. Hazy opacification is seen in both lung bases. Trachea is midline. No pneumothorax. No gross bon y abnormality seen. No acute aortic findings suspected. IMPRESSION: A mild CHF/ volume overload pattern seen on the prior day remains. Small bilateral pleur al effusions are suspected. No significant change from prior day imaging.
--- NOTE | 2017-06-26 11:52 | CON ---
Date of Consultation: 06/24/2017 She was admitted to Dr. Cueto's service on 06/22/2017. I saw the patient on 06/24/2017. Reason For Consultation: Congestive heart failure. History Of Present Illness: Ms. Thakkar is an 87-year-old white woman. She has a history of chronic diastolic congestive heart failure, COPD, atrial fibrillation, hypertension, dyslipidemia, history of pacemaker placement, came in what she had with exacerbation of CHF and COPD. Feeling slightly jannette r. Denied any PND, orthopnea, pedal edema, palpitation, or syncope. Has had some chills but no feve r. Allergies: TO IODINE, PENICILLIN, AND CIPROFLOXACIN. Review of Systems: Negative. Social History: Negative. Family History: Negative. Medications: At home include prednisone, multiple inhalers, Coreg, Lasix, and Pravachol. Physical Examination: General: She was slightly short of breath. Vital Signs: Stable. She was afebrile. HEENT: Negative. Neck: Supple without any lymphadenopathy, JVD, or thyromegaly. Chest: Revealed wheezing on expiration, but no rales. Cardiac: Revealed a regular rhythm and rate without any murmurs, gallops, or rubs. Abdomen: Benign. Extremities: Revealed no clubbing or cyanosis. She had trace edema. Diagnostic Data: She had a creatinine of 2.2, hemoglobin of 8.2. Her BNP was 1133. Impression And Plan: 1.Acute exacerbation of chronic diastolic congestive heart failure. 2.Exacerbation of chronic obstructive pulmonary disease. 3.Atrial fibrillation and status post pacemaker. She has normal rhythm now. 4.Hypertension, well controlled. 5.Dyslipidemia, well controlled. 6.Renal insufficiency, stage 4. 7.Anemia. 8.Elevated BNP secondary to congestive heart failure. There is an echo pending I believe on Ms. Shawnee iglesias. She normally sees Dr. Curiel as a family physician. She just saw Dr. Galan about a week ago. I will continue her present regimen as it is right now including the diuresis and inhaler therapy. I will continue to follow along with Dr. Cueto. The patient is not a candidate for SAM inhibitors or a ngiotensin receptor blockers because of her creatinine. If she remains asymptomatic, certainly blood transfusion may not be applicable. MISSY/ADITI Voice ID: [id number] Report ID: [id number]
--- NOTE | 2017-06-26 13:45 | P.PN ---
Date of Service: 06/26/17 Subjective: The patient is seen and examined. Chart reviewed and case discussed with RN. Patient today appeared to be in acute distress. She states she just walked back to her bed from the bedside cammode and can't seem to breath. Is unable to lye down as well. Review of Systems: Negative except as above. Medications: Reviewed. Physical Examination: Vital signs: Temp Pulse Resp BP Pulse Ox 97.6 F 77 22 H 123/58 L 94 06/26/17 08:00 06/26/17 09:45 06/26/17 08:00 06/26/17 09:45 06/26/17 08:00 General: Awake, alert, oriented, has acute distress. Elderly female, slightly ill appearing. CV: S1, S2. Peripheral pulses present. Regular rate and rhythm and rhythm. Respiratory: Diminished breath sounds. Some crackles heard. Mod wheezing. Gastrointestinal: Abdomen is soft, nontender, nondistended. Positive bowel sounds. Extremities: No clubbing, cyanosis, or some mild edema. Neurologic: Nonfocal. Assessment And Plan: An 87-year-old female with: 1. Acute diastolic heart failure with acute worsening today. - EF 62% from recent echo. - On IV lasix and BB at this time. Might benefit from adding Aldactone. - Cardiology consulted. Dr Rao On board. 2.Chronic obstructive pulmonary disease with acute worsening today. - Currently on BIPAP due to Hypercapnia. Will wean to NC as tolerated . - We will continue nebulizer treatments and steroids 3.Essential hypertension. Continue home medications. 4.Atrial fibrillation, paroxysmal. 5.Status post pacemaker. 6.Gastroesophageal reflux disease without esophagitis. 7.Anemia of chronic disease. We will monitor H and H. 8.History of myocardial infarction, coronary artery disease, [place] artery and [place] heart without angina, stable. 9.FANTASMA on chronic Kidney disease -Nephrology consulted. Appreciate rec -DC losartan today. lab in AM 10. Acute Respiratory Failure, Hypercapnic See # 1 11.Gastrointestinal and deep venous thrombosis prophylaxis addressed. Plan: Awaiting clinical Improvement.
[2017-06-26] MEDS ORDERED: FUROSEMIDE 40 MG/4 ML VIAL IV ONE (14:00)
--- NOTE | 2017-06-26 17:43 | PN ---
Date of Progress Note: 06/26/2017 Subjective: The patient is on BiPAP at this time. She was having worsening shortness of breath. AB G was drawn, which showed evidence of hypercapnia and mild hypoxia. She has been put on BiPAP with s ome improvement. Chest x-ray has been done showing some mild persistent pulmonary edema, but otherwi se unremarkable. Physical Examination: Vital Signs: Showing temperature of 97.6, pulse rate of 77, respiratory rate of 22, blood pressure 1 23/58. General: She appears in no acute distress. She is on BiPAP. HEENT: Atraumatic head. Lungs: Auscultation of the lungs revealed decreased breath sounds at the bases. No wheezes were en reciated. Abdomen: Soft and nontender. Extremities: With no evidence of any edema at this time. Current Medications: Include Tylenol, albuterol, Xanax, atorvastatin, carvedilol 25 mg b.i.d., Lasix 40 mg IV b.i.d. She is on nebulizer treatments. Ativan and prednisone 10 mg twice a day. She is a lso on losartan, which currently has been discontinued. Laboratory Data: Showing a pH of 7.32, pCO2 of 69.6, and pO2 of 92.4. CBC showing chronic anemia wi th hemoglobin of 8.4, hematocrit of 25.8, and platelet count of 157. BMP results are showing sodium of 136, potassium of 5, chloride of 94, bicarb of 35, BUN of 47, and creatinine of 2.2 which is overa ll stable. Impression: 1.Acute on chronic renal insufficiency with underlying cardiorenal syndrome. The patient's renal fu nction is slightly worse, but overall stable. Her baseline creatinine itself is around 1.8 to 2. Ho wever, given the fact that her renal function is worsening and also because of underlying cardiorenal syndrome, we will discontinue the losartan to prevent further drops in her blood pressures as she se ems to also have some renovascular component to her hypertension and might be very sensitive to drops in blood pressure. 2.Shortness of breath with respiratory distress, possibly from combination of congestive heart failu re and chronic obstructive pulmonary disease. She seems to be having mild contraction alkalosis asso ciated with some short hypercapnia, which could be from chronic obstructive pulmonary disease exacerb ation. We will continue BiPAP and continue Lasix for right now, but may need to hold it if renal fun ction or CO2 continues to rise tomorrow. 3.Chronic anemia secondary to chronic disease. Continue all medications the same for right now and monitor, and we will hold off on any transfusion. 4.Weakness and debility. Will need physical therapy once her respiratory status improves. Plan: The patient is overall doing okay at this time. Renal function is slightly worse. We will go ahead and hold the losartan as discussed above. Hold Lasix tomorrow if alkalosis and renal function continues to worsen. Continue BiPAP and monitor respiratory status closely. Plan was discussed wit h the patient in detail. Will need close outpatient followup and also discuss with Dr. Cueto. VV/MODL Voice ID: [id number] Report ID: [id number]
[2017-06-26] MEDS: ENOXAPARIN 30 MG/0.3 ML SQ SCH (17:46)
[2017-06-26] MEDS: ATORVASTATIN 10 MG TAB PO SCH (20:44)
[2017-06-27] MEDS: ALBUTEROL 2.5 MG/3 ML NEB SOL NEB PRN ×3 (01:41→13:28)
[2017-06-27] MEDS: IPRATROPIUM BROM 0.5MG/2.5ML NEB SCH ×4 (01:41→19:51)
[2017-06-27 05:10] LABS: Absolute Lymphocytes (CBC) 0.5 K/uL (0.7-4.9); Absolute Monocytes 0.3 K/uL (0.1-1.3); Absolute Neutrophil 5.2 K/uL (1.8-8.0); Basophils % 0.1 % (0-1.3); Eosinophils % 0.6 % (0-4.4); Hematocrit 27.2 % (36.0-45.0); MCH 29.5 pg (27.0-35.0); MCV 88.8 fL (80-100); MPV 8.9 fL (7.6-11.3); Monocytes % 5.4 % (3.3-12.3); RBC Red Blood Cell Count 3.06 M/uL (3.86-4.86)
[2017-06-27] MEDS: CARVEDILOL 25 MG TAB PO SCH ×2 (05:55→18:09)
[2017-06-27 05:56] LABS: Albumin 3.4 g/dL (3.2-5.5); Bilirubin Total 0.7 mg/dL (0.3-1.2); Potassium 4.1 mEq/L (3.6-5.0); Protein, Total 5.7 g/dL (6.0-8.3)
[2017-06-27] MEDS: SALMETEROL IH SCH ×2 (09:00→21:00)
[2017-06-27] MEDS: FLUTICASONE IH SCH ×2 (09:00→21:00)
[2017-06-27] MEDS: FUROSEMIDE 40 MG/4 ML VIAL IV SCH (09:14)
[2017-06-27] MEDS: PANTOPRAZOLE 40 MG INJ IVP SCH (09:14)
[2017-06-27] MEDS: predniSONE 10 MG TAB PO SCH ×2 (09:14→20:39)
--- NOTE | 2017-06-27 13:47 | P.PN ---
Date of Service: 06/27/17 Subjective: The patient is seen and examined. Chart reviewed and case discussed with RN. Patient today doing much better than before. Off the BIPAP now. No SOB or no other complains. Review of Systems: Negative except as above. Medications: Reviewed. Physical Examination: Vital signs: Temp Pulse Resp BP Pulse Ox 97.2 F 80 20 103/47 L 98 06/27/17 12:00 06/27/17 12:00 06/27/17 12:00 06/27/17 12:00 06/27/17 12:00 General: Awake, alert, oriented, Elderly female, slightly ill appearing. CV: S1, S2. Peripheral pulses present. Regular rate and rhythm and rhythm. Respiratory: Diminished breath sounds. Some crackles heard. Mod wheezing. Gastrointestinal: Abdomen is soft, nontender, nondistended. Positive bowel sounds. Extremities: No clubbing, cyanosis, or some mild edema. Neurologic: Nonfocal. Assessment And Plan: An 87-year-old female with: 1. Acute diastolic heart failure Improved today - EF 62% from recent echo. - On PO lasix and BB at this time. Might benefit from adding Aldactone. - Cardiology consulted. Dr Rao On board. 2.Chronic obstructive pulmonary disease Improved today - Currently on NC now. - We will continue nebulizer treatments and steroids 3.Essential hypertension. Continue home medications. 4.Atrial fibrillation, paroxysmal. 5.Status post pacemaker. 6.Gastroesophageal reflux disease without esophagitis. 7.Anemia of chronic disease. We will monitor H and H. 8.History of myocardial infarction, coronary artery disease, [place] artery and [place] heart without angina, stable. 9.FANTASMA on chronic Kidney disease -Nephrology consulted. Appreciate [facility] -DC losartan 10. Acute Respiratory Failure, Hypercapnic See # 1. Resolved 11.Gastrointestinal and deep venous thrombosis prophylaxis addressed. Plan: Pending placment now.
[2017-06-27] MEDS: ENOXAPARIN 30 MG/0.3 ML SQ SCH (18:09)
[2017-06-27] MEDS: ATORVASTATIN 10 MG TAB PO SCH (20:39)
[2017-06-28] MEDS: IPRATROPIUM BROM 0.5MG/2.5ML NEB SCH ×2 (01:09→08:12)
[2017-06-28] MEDS: ALBUTEROL 2.5 MG/3 ML NEB SOL NEB PRN (01:11)
[2017-06-28 05:25] LABS: Absolute Lymphocytes (CBC) 0.5 K/uL (0.7-4.9); Absolute Monocytes 0.3 K/uL (0.1-1.3); Absolute Neutrophil 4.7 K/uL (1.8-8.0); Basophils % 0.1 % (0-1.3); Eosinophils % 0.1 % (0-4.4); Hematocrit 27.5 % (36.0-45.0); Lymphocytes % 8.6 % (15.3-44.8); MCH 29.7 pg (27.0-35.0); MCV 88.8 fL (80-100); MPV 8.9 fL (7.6-11.3); Monocytes % 5.8 % (3.3-12.3)
[2017-06-28] MEDS: CARVEDILOL 25 MG TAB PO SCH (05:55)
[2017-06-28 05:58] VITALS: BMI 26.9
[2017-06-28 06:10] LABS: Blood Morphology Comment NOT SEEN (NOT SEEN)
[2017-06-28 06:11] LABS: Platelet Estimate ADEQ
[2017-06-28 06:47] LABS: Albumin 3.2 g/dL (3.2-5.5); Bilirubin Total 0.5 mg/dL (0.3-1.2); Potassium 4.3 mEq/L (3.6-5.0); Protein, Total 5.1 g/dL (6.0-8.3)
[2017-06-28] MEDS: FLUTICASONE IH SCH (08:37)
[2017-06-28] MEDS: SALMETEROL IH SCH (08:37)
[2017-06-28] MEDS: predniSONE 10 MG TAB PO SCH (08:46)
[2017-06-28] MEDS: PANTOPRAZOLE 40 MG INJ IVP SCH (08:46)
[2017-06-28 08:47] VITALS: BP 122/56
[2017-06-28] MEDS ORDERED: FUROSEMIDE 40 MG TABLET PO SCH (09:00)
[2017-06-28 09:58] VITALS: O2SAT 99
[2017-06-28 14:44] VITALS: TEMP 97.8
--- NOTE | 2017-06-28 15:19 | P.DS ---
Admission Date: 06/22/17 Discharge Date: 06/28/17 Primary Care Provider: Dr. Curiel Disposition: TRANSFER TO [facility] Reason for Admission: Dyspnea Consultations: Cardiology Brief History of Present Illness: The patient is an 87-year-old female with past medical history of COPD, CHF, hypertension, atrial fibrillation, GERD, anemia, history of VT, status post pacemaker, who was in her usual state of health until the day prior to admission when the patient started having sudden onset of shortness of breath. The patient does state some generalized weakness. Denies any fevers, chills. Reports some lower extremity edema. She states that she decreased her dose of Lasix as she thought that the 40 mg was too high and she had finished off a course of steroids recently. The patient denies any cough or sputum production. No ill contacts. The patient comes in for further evaluation of her shortness of breath. Her symptoms are constant, moderate, progressively worsening. No alleviating or aggravating factors. In the ER, the patient was found to be slightly tachypneic. Her workup revealed normal white count. Her BNP was elevated at 1200. Her chest x-ray showed mild CHF pattern. The patient was then referred for admission. When seen in the ER, the patient was awake, alert, oriented x3, in some mild distress. Hospital Course: Discharge Diagnosis 1. Acute diastolic heart failure 2.Chronic obstructive pulmonary disease 3.Essential hypertension. 4.Atrial fibrillation, paroxysmal. 5.Status post pacemaker. 6.Gastroesophageal reflux disease without esophagitis. 7.Anemia of chronic disease. 8.History of myocardial infarction, coronary artery disease, elim ira artery and elim ira heart without angina 9.FANTASMA on chronic Kidney disease 10. Acute Respiratory Failure, Hypercapnic Hospital Course Overall during the hospital course patient remained stable Initially patient was admitted to the hospital for acute congestive heart failure. Was kept on IV Lasix here in the hospital. Was improving respiratory virus here in the hospital as well. However date 3 patient had acute respiratory failure most likely secondary to hypercapnia. Patient was placed on BiPAP which improved her respiratory status markedly here in the hospital. Patient was then weaned off to nasal cannula. Physical therapy was consulted with patient did work with physical therapy here and was doing well. Patient was referred for rehab and rehab consult was placed. Patient also started having some atrial fibrillation with RVR on day of admission. Cardiology was consulted who recommended restarting her medications from home. Patient was restarted back on a beta-samaria and anti coagulation and remained uneventful here in the hospital. Patient also had acute kidney injury here in the hospital. Nephrology was consulted who recommended that losartan B stopped here in the hospital and patient's BUN and creatinine improved markedly. Once patient was accepted to inpatient rehab she was transferred over to rehab for further care. All other chronic conditions remained stable while here in the hospital Vital Signs/Physical Exam: Temp Pulse Resp BP Pulse Ox 97.8 F 93 H 20 122/56 L 93 06/28/17 08:00 06/28/17 08:46 06/28/17 08:00 06/28/17 08:46 06/28/17 08:00 General: Alert, In no apparent distress HEENT: Atraumatic, PERRLA, EOMI Neck: Supple, JVD not distended Respiratory: Clear to auscultation bilaterally, Normal air movement Cardiovascular: Regular rate/rhythm, Normal S1 S2 Gastrointestinal: Normal bowel sounds, No tenderness Musculoskeletal: No tenderness Integumentary: No rashes Neurological: Normal speech, Normal tone, Normal affect Lymphatics: No axilla or inguinal lymphadenopathy Laboratory Data at Discharge: WBC 5.5 K/uL (4.3-10.9) 06/28/17 04:48 Hgb 9.2 g/dL (12.0-15.0) L 06/28/17 04:48 Hct 27.5 % (36.0-45.0) L 06/28/17 04:48 Plt Count 148 K/uL (152-406) L 06/28/17 04:48 PT 11.4 SECONDS (9.5-12.5) 06/22/17 09:10 INR 0.97 06/22/17 09:10 APTT 27.3 SECONDS (24.3-36.9) 06/22/17 09:10 Sodium 137 mEq/L (135-145) 06/28/17 05:58 Potassium 4.3 mEq/L (3.6-5.0) 06/28/17 05:58 BUN 45 mg/dL (6-20) H 06/28/17 05:58 Creatinine 2.17 mg/dL (0.44-1.00) H 06/28/17 05:58 Glucose 174 mg/dL (65-120) H 06/28/17 05:58 Uric Acid 7.9 mg/dL (2.6-8.0) 06/26/17 03:45 Phosphorus 4.2 mg/dL (2.5-4.3) 06/25/17 04:08 Magnesium 2.2 mg/dL (1.8-2.5) 06/22/17 09:10 Total Bilirubin 0.5 mg/dL (0.3-1.2) 06/28/17 05:58 AST 12 IU/L (10-42) 06/28/17 05:58 ALT 13 IU/L (10-60) 06/28/17 05:58 Alkaline Phosphatase 54 IU/L (42-121) 06/28/17 05:58 B-Natriuretic Peptide 2799 pg/ml (<=100) H 06/26/17 09:49 Home Medications: Carvedilol [Coreg*] 25 mg PO BID 10/01/14 Fluticasone/Salmeterol [Advair 250/50 Diskus*] 1 inh IH BID 10/01/14 Pravastatin [Pravachol*] 80 mg PO BEDTIME 10/01/14 Albuterol Sulfate [Albuterol Sulfate 0.083% Neb Soln] 0.5 vial IH Q6H PRN Ipratropium Anderson 0.2 mg IH Q6H PRN 04/24/17 Furosemide [Lasix] 40 mg PO DAILY 30 Days #30 tab 04/26/17 Prednisone [Deltasone] 10 mg PO BID #20 tab 04/26/17 Followup: Andrea Rao MD [ACTIVE - CAN ADMIT] - (Dr. Rao to arrange)
--- NOTE | 2017-06-28 17:23 | P.PN ---
Date of Service: 06/27/17 Vital Signs Temp Pulse Resp BP Pulse Ox 97.8 F 93 H 20 122/56 L 93 06/28/17 08:00 06/28/17 08:46 06/28/17 08:00 06/28/17 08:46 06/28/17 08:00 Microbiology Results 06/22/17 09:10 Blood - Blood Aerobic Blood Culture - Final No growth in 5 days. 06/22/17 09:10 Blood - Blood Anaerobic Blood Culture - Final No growth in 5 days. Assessment/ Plan: Nephrology. Reports bipap use overnight. CPS stable without CP or SOB. +MAHMOOD +Cough Nutrition good. Vitals, medications, blood work and imaging reviewed in the chart. General: Oriented x3, Cooperative HEENT: Mucous membr. moist/pink Neck: Supple Respiratory: Expiratory wheezes Cardiovascular: No rubs, Edema Gastrointestinal: Soft and benign, Non-distended Musculoskeletal: No clubbing, No contractures Integumentary: No rashes, No cyanosis Neurological: Normal speech Blood work reviewed in the chart. Initial serum creatinine 1.89 Imagings Data: EXAM DESCRIPTION: Td Pa And Lat (2 Views)06/24/2017 6:29 am CLINICAL HISTORY: Shortness of breath COMPARISON: June 22 FINDINGS: Mild bilateral interstitial lung opacities are seen. Small pleural effusions are present. . The heart is mildly enlarged. Pacemaker leads are in place. IMPRESSION: Mild CHF EXAM DESCRIPTION: US - Renal Ultrasound-Complete - 04/24/2017 9:42 am CLINICAL HISTORY: . Chronic renal disease. Renal mass COMPARISON: March 2016 cat scan FINDINGS: The right kidney measures 11 cm with a mildly increased echotexture. A 4 centimeter right renal cyst is present The left kidney measures 8 cm with a mildly increased echotexture. A 1.6 centimeter left renal cyst is seen. Hydronephrosis is not seen. Incidental note is made of small gallbladder polyp versus small gallston IMPRESSION: Increased renal echotexture consistent with parenchymal disease Bilateral renal cysts No hydronephrosis HEIGHT: 4 ft 9 in WEIGHT: 140 lb 6 oz DATE OF STUDY: 04-24-[address]: Jordi Valerio MD 2-DIMENSIONAL: YES M.MODE: YES DOPPLER: YES COLOR FLOW: YES TDS: NO PORTABLE: NO DEFINITY: NO BUBBLE STUDY: NO LEFT VENTRICULAR WALL MOTION: NORMAL DOPPLER/COLOR FLOW: MILD TO MODERATE MITRAL REGURGITATION. NO AORTIC STENOSIS / NO AORTIC REGURGITATION. COMMENTS: NORMAL LEFT VENTRICULAR EJECTION FRACTION. DILATED LEFT AND RIGHT ATRIA. MITRAL ANNULAR CALCIFICATION. AORTIC SCLEROSIS WITH NO AORTIC STENOSIS / NO AORTIC REGURGITATION. MILD TO MODERATE MITRAL REGURGITATION. Conclusions/Impression: A/ FANTASMA likely CRS and complicated by hypotension versus ATN. CKD III in the setting of HTN. Proteinuria. Hyponatremia, improving. Hyperglycemia concerning for DM and complicated by prednisone. IFG. Bilateral renal cysts. HTN. A/C Diastolic CHF with MR. Anemia in chronic illness. P/ Continue current POC and Medications. Agree with stopping Losartan. Continue diuresis. Transfuse PRBC as needed. Low sodium/ Low sugar diet. No NSAIDs. AM labs. Daily weight.
--- NOTE | 2017-06-28 17:25 | P.PN ---
Date of Service: 06/28/17 Vital Signs Temp Pulse Resp BP Pulse Ox 97.8 F 93 H 20 122/56 L 93 06/28/17 08:00 06/28/17 08:46 06/28/17 08:00 06/28/17 08:46 06/28/17 08:00 Microbiology Results 06/22/17 09:10 Blood - Blood Aerobic Blood Culture - Final No growth in 5 days. 06/22/17 09:10 Blood - Blood Anaerobic Blood Culture - Final No growth in 5 days. Assessment/ Plan: Nephrology. CPS stable without CP or SOB. +MAHMOOD +Cough Nutrition good. Feeling better. Vitals, medications, blood work and imaging reviewed in the chart. General: Oriented x3, Cooperative HEENT: Mucous membr. moist/pink Neck: Supple Respiratory: CTA Cardiovascular: No rubs, Edema Gastrointestinal: Soft and benign, Non-distended Musculoskeletal: No clubbing, No contractures Integumentary: No rashes, No cyanosis Neurological: Normal speech Blood work reviewed in the chart. Initial serum creatinine 1.89 Imagings Data: EXAM DESCRIPTION: Td [place] And Lat (2 Views)06/24/2017 6:29 am CLINICAL HISTORY: Shortness of breath COMPARISON: June 22 FINDINGS: Mild bilateral interstitial lung opacities are seen. Small pleural effusions are present. . The heart is mildly enlarged. Pacemaker leads are in place. IMPRESSION: Mild CHF EXAM DESCRIPTION: US - Renal Ultrasound-Complete - 04/24/2017 9:42 am CLINICAL HISTORY: . Chronic renal disease. Renal mass COMPARISON: March 2016 cat scan FINDINGS: The right kidney measures 11 cm with a mildly increased echotexture. A 4 centimeter right renal cyst is present The left kidney measures 8 cm with a mildly increased echotexture. A 1.6 centimeter left renal cyst is seen. Hydronephrosis is not seen. Incidental note is made of small gallbladder polyp versus small gallston IMPRESSION: Increased renal echotexture consistent with parenchymal disease Bilateral renal cysts No hydronephrosis HEIGHT: 4 ft 9 in WEIGHT: 140 lb 6 oz DATE OF STUDY: 04-24-[address]: Jordi Valerio MD 2-DIMENSIONAL: YES M.MODE: YES DOPPLER: YES COLOR FLOW: YES TDS: NO PORTABLE: NO DEFINITY: NO BUBBLE STUDY: NO LEFT VENTRICULAR WALL MOTION: NORMAL DOPPLER/COLOR FLOW: MILD TO MODERATE MITRAL REGURGITATION. NO AORTIC STENOSIS / NO AORTIC REGURGITATION. COMMENTS: NORMAL LEFT VENTRICULAR EJECTION FRACTION. DILATED LEFT AND RIGHT ATRIA. MITRAL ANNULAR CALCIFICATION. AORTIC SCLEROSIS WITH NO AORTIC STENOSIS / NO AORTIC REGURGITATION. MILD TO MODERATE MITRAL REGURGITATION. Conclusions/Impression: A/ FANTASMA likely CRS and complicated by hypotension versus ATN. CKD III in the setting of HTN. Proteinuria. Hyponatremia, improving. Hyperglycemia concerning for DM and complicated by prednisone. IFG. Bilateral renal cysts. HTN. A/C Diastolic CHF with MR. Anemia in chronic illness. P/ Continue current POC and Medications. Continue diuresis. Transfuse PRBC as needed. Low sodium/ Low sugar diet. No NSAIDs. AM labs. Daily weight.
== END 2017-06-28 09:58 | DRG 291 ==
LOC: ER 08:46 → ERHOLD 11:32 → 4TH 14:21
PROVIDERS: ADMIT Family Medicine; ATTEND Family Medicine
PROC: 5A09457 Assistance with Respiratory Ventilation, 24-96 Consecutive Hours, Continuous Positive Airway Pressure (ICD-10-PCS; principal; 2017-06-26)
DX: I13.0 Hypertensive heart and chronic kidney disease with heart failure and stage 1 through stage 4 chronic kidney disease, or unspecified chronic kidney disease (principal); I50.33 Acute on chronic diastolic (congestive) heart failure; J96.02 Acute respiratory failure with hypercapnia; J96.01 Acute respiratory failure with hypoxia; N17.9 Acute kidney failure, unspecified; J44.1 Chronic obstructive pulmonary disease with (acute) exacerbation; E87.1 Hypo-osmolality and hyponatremia; N18.3 Chronic kidney disease, stage 3 (moderate); D63.1 Anemia in chronic kidney disease; I48.0 Paroxysmal atrial fibrillation; Z95.0 Presence of cardiac pacemaker; K21.9 Gastro-esophageal reflux disease without esophagitis; I25.2 Old myocardial infarction; I25.10 Atherosclerotic heart disease of native coronary artery without angina pectoris; Z88.0 Allergy status to penicillin; E78.5 Hyperlipidemia, unspecified
CPT/HCPCS: 36415; 71045; 71046; 80048; 80053; 81001; 81003; 82043; 82570; 82607; 82746; 82805; 83036; 83735; 83880; 84100; 84300; 84484; 84550; 85025; 85610; 85730; 86335; 87040; 94640; 94660; 94760; 96374; 97163; 99285; C9113; J1650; J7512

== ENCOUNTER 2017-08-14 11:50 | Emergency (ER) | payer OTHER ==
[2017-08-14] MEDS ORDERED: ALBUTEROL 2.5 MG/3 ML NEB SOL ONE (12:11)
[2017-08-14] MEDS ORDERED: IPRATROPIUM BROM 0.5MG/2.5ML ONE (12:11)
[2017-08-14] MEDS ORDERED: NA CHLORIDE 0.9% 1,000 ML ONE (12:11)
[2017-08-14] MEDS ORDERED: FUROSEMIDE 40 MG/4 ML VIAL ONE (12:18)
[2017-08-14 12:33] LABS: Absolute Lymphocytes (CBC) 0.7 K/uL (0.7-4.9); Absolute Monocytes 0.7 K/uL (0.1-1.3); Absolute Neutrophil 7.2 K/uL (1.8-8.0); Basophils % 0.6 % (0-1.3); Eosinophils % 0.7 % (0-4.4); Lymphocytes % 7.6 % (15.3-44.8); MCH 29.1 pg (27.0-35.0); MCV 89.9 fL (80-100); MPV 8.1 fL (7.6-11.3); Monocytes % 7.9 % (3.3-12.3); RBC Red Blood Cell Count 2.56 M/uL (3.86-4.86)
[2017-08-14 12:38] LABS: Protime INR 1.08
[2017-08-14 12:53] LABS: Albumin 2.3 g/dL (3.4-5.0); Bilirubin Direct 0.2 mg/dL (0-0.2); Bilirubin Total 0.4 mg/dL (0.2-1.0); CKMB Creatine Kinase MB 1.5 ng/mL (0.3-3.6); Magnesium 2.3 mg/dL (1.8-2.4); Potassium 4.4 mmol/L (3.5-5.1); Protein, Total 5.6 g/dL (6.4-8.2)
--- NOTE | 2017-08-14 14:01 | RAD REPORT ---
EXAM DESCRIPTION: RAD - Chest Single View - 08/14/2017 1:01 pm CLINICAL HISTORY: Shortness of breath, dyspnea COMPARISON: June 26 TECHNIQUE: AP portable chest image was obtained 1253 hours . FINDINGS: Fibrotic lung pattern is similar to comparison. No large mass or consolidation. No vascula r engorgement or cardiomegaly. Severity of chronic lung disease can mask early interstitial edema or infiltrate. Right-sided pacemaker remains in place. No measurable pleural effusion and no pneumothora x. No gross bony abnormality seen. No acute aortic findings suspected. IMPRESSION: Chronic interstitial lung disease is present not substantially different from comparison . Early interstitial edema or infiltrate can be masked by severity of chronic disease.
--- NOTE | 2017-08-14 14:16 | EDPHYS ---
Physician Documentation [facility] Name: Bárbara Thakkar Age: 87 yrs Sex: Female : 1930 Arrival Date: 08/14/2017 Time: 11:54 Bed 14 Private MD: ED Physician Cosme Anguiano HPI: 08/14 11:54 This 87 yrs old Female presents to ER via Unassigned with complaints of sob. kav 12:01 The patient has shortness of breath at rest, with light activity, while talking. Onset: kav The symptoms/episode began/occurred acutely, just prior to arrival. Duration: The symptoms are continuous, and are unchanged since they started. The patient's shortness of breath is aggravated by light activity, talking. Severity of symptoms: At their worst the symptoms were moderate just prior to arrival. The patient has experienced similar episodes in the past, today's symptoms are similar, Home oxygen \\T\\ 2l/min via nc continuous. The patient has not recently seen a physician. Home oxygen \\T\\ 2l/min via nc continuosly: PMHX: COPD, Pacemaker/Dr. Taveras/Card, PCP/Dr. Curiel. 16:21 C/O CHEST PAIN ON ARRIVAL TO ED. kav Historical: - Allergies: 12:00 acetylcysteine; hj 12:00 Ciprofloxacin; hj 12:00 Iodinated Contrast Media - IV Dye; hj 12:00 PENICILLINS; hj - Home Meds: 12:00 Advair Diskus 250-50 mcg/dose Inhl dsdv 1 puff 2 times per day [Active]; albuterol hj sulfate 2.5 mg /3 mL (0.083 %) Inhl nebu [Active]; amlodipine 10 mg tab 1 tab once daily [Active]; aspirin 81 mg Oral chew 1 tab once daily [Active]; carvedilol 25 mg Oral tab 1 tab 2 times per day [Active]; Cozaar 100 mg Oral tab 1 tab once daily [Active]; ferrous gluconate 240 mg (27 mg iron) Oral tab daily [Active]; ipratropium bromide 0.02 % inhalation soln [Active]; Lasix 20 mg Oral tab 1 tab once daily [Active]; Plavix 75 mg Oral tab 1 tab once daily [Active]; pravastatin 80 mg Oral tab 1 tab once daily [Active]; - PMHx: 12:00 COPD; High Cholesterol; Hypertension; Pacemaker; hj - PSHx: 12:00 Appendectomy; Tonsillectomy; Stents; hj - Immunization history:: Adult Immunizations up to date. - Social history:: Smoking status: Patient/guardian denies using tobacco, Patient/guardian denies using alcohol. - Ebola Screening: : Patient negative for fever greater than or equal to 101.5 degrees Fahrenheit, and additional compatible Ebola Virus Disease symptoms Patient denies exposure to infectious person Patient denies travel to an Ebola-affected area in the 21 days before illness onset. - Family history:: not pertinent. - Hospitalizations: : No recent hospitalization is reported. ROS: 12:07 Respiratory: Positive for shortness of breath, on exertion. kav 16:33 Constitutional: Negative for fever, chills, and weight loss, Eyes: Negative for injury, kav pain, redness, and discharge, ENT: Negative for injury, pain, and discharge, Neck: Negative for injury, pain, and swelling, Abdomen/GI: Negative for abdominal pain, nausea, vomiting, diarrhea, and constipation, Back: Negative for injury and pain, : Negative for injury, bleeding, discharge, and swelling, MS/Extremity: Negative for injury and deformity, Skin: Negative for injury, rash, and discoloration, Neuro: Negative for headache, weakness, numbness, tingling, and seizure, Psych: Negative for depression, anxiety, suicide ideation, homicidal ideation, and hallucinations, Allergy/Immunology: Negative for hives, rash, and allergies, Endocrine: Negative for neck swelling, polydipsia, polyuria, polyphagia, and marked weight changes, Hematologic/Lymphatic: Negative for swollen nodes, abnormal bleeding, and unusual bruising. 16:33 Cardiovascular: Positive for chest pain. 16:33 Respiratory: Positive for shortness of breath, at rest. Exam: 12:07 Constitutional: This is a well developed, well nourished patient who is awake, alert, kav and in no acute distress. Head/Face: Normocephalic, atraumatic. Eyes: Pupils equal round and reactive to light, extra-ocular motions intact. Lids and lashes normal. Conjunctiva and sclera are non-icteric and not injected. Cornea within normal limits. Periorbital areas with no swelling, redness, or edema. ENT: Nares patent. No nasal discharge, no septal abnormalities noted. Tympanic membranes are normal and external auditory canals are clear. Oropharynx with no redness, swelling, or masses, exudates, or evidence of obstruction, uvula midline. Mucous membranes moist. Neck: Trachea midline, no thyromegaly or masses palpated, and no cervical lymphadenopathy. Supple, full range of motion without nuchal rigidity, or vertebral point tenderness. No Meningismus. Cardiovascular: Regular rate and rhythm with a normal S1 and S2. No gallops, murmurs, or rubs. Normal PMI, no JVD. No pulse deficits. Abdomen/GI: Soft, non-tender, with normal bowel sounds. No distension or tympany. No guarding or rebound. No evidence of tenderness throughout. Back: No spinal tenderness. No costovertebral tenderness. Full range of motion. Female : Normal external genitalia. MS/ Extremity: Pulses equal, no cyanosis. Neurovascular intact. Full, normal range of motion. Neuro: Awake and alert, GCS 15, oriented to person, place, time, and situation. Cranial nerves II-XII grossly intact. Motor strength 5/5 in all extremities. Sensory grossly intact. Cerebellar exam normal. Normal gait. Psych: Awake, alert, with orientation to person, place and time. Behavior, mood, and affect are within normal limits. 12:08 Chest/axilla: Normal chest wall appearance and motion. Nontender with no deformity. kav No lesions are appreciated. 12:08 Respiratory: mild respiratory distress is noted, Respirations: labored breathing, that is mild, Breath sounds: wheezing: expiratory that is moderate, is heard in the left lower lobe, right lower lobe, left posterior lower lobe and right posterior lower lobe, Respiratory rate: 22 bpm 12:08 Skin: very pale in color. 16:33 ECG was reviewed by the Attending Physician. NSR W/ INCOMPLETE LEFT BUNDLE BRANCH kav BLOCK, MARKED ST ABNORMALITY. NO CHANGES IN EKG WHEN COMPARED WITH OLD EKG DONE ON 04/24/17 Vital Signs: 12:01 BP 131 / 100; Pulse 102; Resp 22; Temp 98.3; Pulse Ox 99% on 2 lpm NC; Weight 65.77 kg; hj Height 5 ft. 1 in. (154.94 cm); Pain 0/10; 14:08 BP 111 / 74; Pulse 87; Resp 20; Pulse Ox 96% on 2 lpm NC; hj 15:10 BP 125 / 83; Pulse 63; Resp 18; Pulse Ox 95% on 2 lpm NC; hj 16:21 BP 117 / 63; Pulse 65; Resp 18; Pulse Ox 99% on 2 lpm NC; hj 17:28 BP 120 / 60; Pulse 66; Resp 18; Pulse Ox 99% 2 lpm ; hj 12:01 Body Mass Index 27.40 (65.77 kg, 154.94 cm) MDM: 11:54 Medical screening is not applicable. [facility] 14:15 Data reviewed: vital signs, nurses notes, lab test result(s), EKG, radiologic studies. [facility] 15:28 ED course: patient evaluated by hospitalist/ dr. kim for admission to hospital [facility] however, patient refused and states that "...she will only be cared for by dr. taveras/cardiology". left voice message for dr. taveras. 15:41 ED course: talked with dr. taveras/[facility] regarding patient's request to [facility] transfer to his service. spoke with dr. laboy regarding this transfer. he recommended transfer to [facility]. Admit to Hospitalist services with cardiology consult from [facility]/Dr. Laboy. 08/14 11:55 Order name: Basic Metabolic Panel; Complete Time: 13:04 08/14 13:12 Interpretation: Normal except: NA 131; CL 93; GLUC 197; BUN 34; CRE 2.50; GFR 18; CA kav 8.3. 08/14 11:55 Order name: CBC with Diff; Complete Time: 13:04 08/14 13:04 Interpretation: RBC 2.56; HGB 7.4; HCT 23.0; JULIUS% 83.2; LYM% 7.6. 08/14 11:55 Order name: Ckmb; Complete Time: 13:07 08/14 13:07 Interpretation: Within normal limits. 08/14 11:55 Order name: CPK; Complete Time: 13:07 08/14 13:07 Interpretation: Within normal limits. 08/14 11:55 Order name: LFT's; Complete Time: 13:05 08/14 13:05 Interpretation: ALK 44; TP 5.6; ALB 2.3; A/G 0.7. 08/14 11:55 Order name: Magnesium; Complete Time: 13:07 08/14 13:07 Interpretation: Within normal limits. 08/14 11:55 Order name: NT PRO-BNP; Complete Time: 13:05 08/14 13:06 Interpretation: NT PRO-BNP 57469. 08/14 11:55 Order name: PT-INR; Complete Time: 12:43 08/14 12:43 Interpretation: Normal except: PT 12.8. 08/14 11:55 Order name: Ptt, Activated; Complete Time: 12:43 08/14 12:43 Interpretation: Abnormal: PTT 23.2. 08/14 11:55 Order name: Troponin (emerg Dept Use Only); Complete Time: 13:06 08/14 13:06 Interpretation: Abnormal: TROPED 0.38. 08/14 13:48 Order name: Type And Screen 08/14 13:57 Order name: Bb Add On 08/14 11:55 Order name: XRAY Chest (1 view); Complete Time: 14:05 08/14 14:07 Interpretation: Abnormal: Interstitial edema. 08/14 11:55 Order name: EKG; Complete Time: 11:56 08/14 11:55 Order name: Cardiac monitoring; Complete Time: 12:07 08/14 11:55 Order name: EKG - Nurse/Tech; Complete Time: 13:16 08/14 11:55 Order name: IV Saline Lock; Complete Time: 12:07 08/14 11:55 Order name: Labs collected and sent; Complete Time: 12:14 08/14 11:55 Order name: O2 Per Protocol; Complete Time: 12:08 08/14 11:55 Order name: O2 Sat Monitoring; Complete Time: 12:08 08/14 11:55 Order name: Urine Dipstick-Ancillary (obtain specimen); Complete Time: 15:10 08/14 13:16 Order name: Consent for Blood Transfusion; Complete Time: 14:01 08/14 15:11 Order name: Urine Dipstick--Ancillary (enter results); Complete Time: 15:39 em1 08/14 15:39 Interpretation: Normal except: Leuk estrace. [facility] 08/14 15:51 Order name: Urine Dipstick-Ancillary; Complete Time: 16:38 EDGA 08/14 16:38 Interpretation: Normal except: UBLD 2+; UPROT 2+; UESTR 1+. [facility] 08/14 13:16 Order name: IV Saline Lock; Complete Time: 14:01 ka Administered Medications: 12:00 Drug: DuoNeb (3:1) (2.5 mg - 0.5 mg) 3 ml Route: Nebulizer; hj 13:16 Follow up: Response: No adverse reaction hj 12:00 Drug: NS 0.9% 1000 ml Route: IV; Rate: 75 ml/hr; Site: left antecubital; hj 15:11 Follow up: IV Status: Infusion continued hj 12:13 Drug: Lasix 40 mg Route: IVP; Site: left antecubital; hj 13:15 Follow up: Response: No adverse reaction Disposition: 08/15 06:40 Co-signature as Attending Physician, Cosme Anguiano MD I agree with the assessment and [facility] plan of care. Disposition: 08/14/17 16:10 Transfer ordered to Other Acute Care Facility. Diagnosis are Systolic (congestive) heart failure, ELEVATED CARDIAC ENZYMES, Chronic kidney disease (CKD), CHF EXACERBATION, Anemia in chronic kidney disease, Urinary tract infection, site not specified. - Reason for transfer: Higher level of care. - Accepting physician is [facility]. - Condition is Fair. - Problem is new. - Symptoms are unchanged. Signatures: Dispatcher [employer] [facility] Cosme Anguiano MD MD cha Vern, Katherine, OUTSOLES CHANNEL OPENER OUTSOLES CHANNEL OPENER Gordo Evans RN RN hj Corrections: (The following items were deleted from the chart) 08/14 13:06 13:05 Normal except: NT PRO-BNP 84025. [facility] 13: 13:06 Normal except: TROPED 0.38. [facility] ka 13:12 13:04 Normal except: NA 131; CL 93; GLUC 197; BUN 34; CRE 2.50; GFR 18. ka ka 15:28 14:15 Hospitalization Ordered by Asim Kim DO for Observation. Preliminary iw diagnosis is Chronic systolic (congestive) heart failure; Anemia in chronic kidney disease. Bed requested for Telemetry/MedSurg (observation). Status is Observation. Condition is Fair. Problem is new. Symptoms have improved. UTI on Admission? No. kav 16:10 16:10 08/14/2017 16:10 Transfer ordered to Other Acute Care Facility. Diagnosis is kav Systolic (congestive) heart failure; ELEVATED CARDIAC ENZYMES; Chronic kidney disease (CKD); CHF EXACERBATION; Anemia in chronic kidney disease. Reason for transfer: Higher level of care. Accepting physician is [facility]. Condition is Fair. Problem is new. Symptoms are unchanged. kav 16:22 12:01 Associated signs and symptoms: Pertinent negatives: chest pain, non-productive kav cough, productive cough, diaphoresis, dizziness, fever, hemoptysis, loss of consciousness, nausea, numbness in extremities, visual changes, vomiting, kav 16:34 12:07 Constitutional: Negative for fever, chills, and weight loss, Eyes: Negative for kav injury, pain, redness, and discharge, ENT: Negative for injury, pain, and discharge, Neck: Negative for injury, pain, and swelling, Cardiovascular: Negative for chest pain, palpitations, and edema, Abdomen/GI: Negative for abdominal pain, nausea, vomiting, diarrhea, and constipation, Back: Negative for injury and pain, : Negative for injury, bleeding, discharge, and swelling, MS/Extremity: Negative for injury and deformity, Skin: Negative for injury, rash, and discoloration, Neuro: Negative for headache, weakness, numbness, tingling, and seizure, Psych: Negative for depression, anxiety, suicide ideation, homicidal ideation, and hallucinations, Allergy/Immunology: Negative for hives, rash, and allergies, Endocrine: Negative for neck swelling, polydipsia, polyuria, polyphagia, and marked weight changes, Hematologic/Lymphatic: Negative for swollen nodes, abnormal bleeding, and unusual bruising, kav 17:27 16:10 08/14/2017 16:10 Transfer ordered to Other Acute Care Facility. Diagnosis is hj Systolic (congestive) heart failure; ELEVATED CARDIAC ENZYMES; Chronic kidney disease (CKD); CHF EXACERBATION; Anemia in chronic kidney disease; Urinary tract infection, site not specified. Reason for transfer: Higher level of care. Accepting physician is [facility]. Condition is Fair. Problem is new. Symptoms are unchanged. kav
--- NOTE | 2017-08-14 14:16 | ER ---
Nurse's Notes [facility] Name: Bárbara Thakkar Age: 87 yrs Sex: Female : 1930 Arrival Date: 08/14/2017 Time: 11:54 Bed 14 Private MD: Diagnosis: Systolic (congestive) heart failure;ELEVATED CARDIAC ENZYMES;Chronic kidney disease (CKD);CHF EXACERBATION;Anemia in chronic kidney disease;Urinary tract infection, site not specified Presentation: 08/14 11:57 Presenting complaint: EMS states: Saturday started SOB, hx of COPD and CHF, noted hj bilateral leg swelling; denies fever; had pacemaker; was given A/A tx BILLER and 125 solumedrol IV; 20 g L AC;. Transition of care: patient was not received from another setting of care. Onset of symptoms was August 12, 2017. Risk Assessment: Do you want to hurt yourself or someone else? Patient reports no desire to harm self or others. Initial Sepsis Screen: Does the patient meet any 2 criteria? No. Patient's initial sepsis screen is negative. Does the patient have a suspected source of infection? No. Patient's initial sepsis screen is negative. Care prior to arrival: Medication(s) given: Albuterol Neb x 1, Atrovent Neb x 1, solmedrol 125 mg IV initiated. 20 GA, in the left antecubital area. 11:57 Method Of Arrival: EMS: [facility] 11:57 Acuity: CECE 3 hj Triage Assessment: 12:01 General: Appears in no apparent distress. uncomfortable, Behavior is calm, cooperative, hj appropriate for age. Pain: Denies pain. Historical: - Allergies: 12:00 acetylcysteine; hj 12:00 Ciprofloxacin; hj 12:00 Iodinated Contrast Media - IV Dye; 12:00 PENICILLINS; hj - Home Meds: 12:00 Advair Diskus 250-50 mcg/dose Inhl dsdv 1 puff 2 times per day [Active]; albuterol hj sulfate 2.5 mg /3 mL (0.083 %) Inhl nebu [Active]; amlodipine 10 mg tab 1 tab once daily [Active]; aspirin 81 mg Oral chew 1 tab once daily [Active]; carvedilol 25 mg Oral tab 1 tab 2 times per day [Active]; Cozaar 100 mg Oral tab 1 tab once daily [Active]; ferrous gluconate 240 mg (27 mg iron) Oral tab daily [Active]; ipratropium bromide 0.02 % inhalation soln [Active]; Lasix 20 mg Oral tab 1 tab once daily [Active]; Plavix 75 mg Oral tab 1 tab once daily [Active]; pravastatin 80 mg Oral tab 1 tab once daily [Active]; - PMHx: 12:00 COPD; High Cholesterol; Hypertension; Pacemaker; hj - PSHx: 12:00 Appendectomy; Tonsillectomy; Stents; hj - Immunization history:: Adult Immunizations up to date. - Social history:: Smoking status: Patient/guardian denies using tobacco, Patient/guardian denies using alcohol. - Ebola Screening: : Patient negative for fever greater than or equal to 101.5 degrees Fahrenheit, and additional compatible Ebola Virus Disease symptoms Patient denies exposure to infectious person Patient denies travel to an Ebola-affected area in the 21 days before illness onset. - Family history:: not pertinent. - Hospitalizations: : No recent hospitalization is reported. Screenin:01 Abuse screen: Denies threats or abuse. Denies injuries from another. Nutritional hj screening: No deficits noted. Tuberculosis screening: No symptoms or risk factors identified. Fall Risk None identified. Assessment: 13:01 Reassessment: Patient and/or family updated on plan of care and expected duration. Pain hj level reassessed. Patient is alert, oriented x 3, equal unlabored respirations, skin warm/dry/pink. Patient denies pain at this time. 14:08 Reassessment: Patient and/or family updated on plan of care and expected duration. Pain hj level reassessed. Patient is alert, oriented x 3, equal unlabored respirations, skin warm/dry/pink. awaiting BT;. 16:21 Reassessment: Patient and/or family updated on plan of care and expected duration. Pain hj level reassessed. Patient is alert, oriented x 3, equal unlabored respirations, skin warm/dry/pink. for tranfer;. Vital Signs: 12:01 BP 131 / 100; Pulse 102; Resp 22; Temp 98.3; Pulse Ox 99% on 2 lpm NC; Weight 65.77 kg; hj Height 5 ft. 1 in. (154.94 cm); Pain 0/10; 14:08 BP 111 / 74; Pulse 87; Resp 20; Pulse Ox 96% on 2 lpm NC; hj 15:10 BP 125 / 83; Pulse 63; Resp 18; Pulse Ox 95% on 2 lpm NC; hj 16:21 BP 117 / 63; Pulse 65; Resp 18; Pulse Ox 99% on 2 lpm NC; hj 17:28 BP 120 / 60; Pulse 66; Resp 18; Pulse Ox 99% 2 lpm ; hj 12:01 Body Mass Index 27.40 (65.77 kg, 154.94 cm) hj ED Course: 11:54 Patient arrived in ED. hj 11:54 [facility] kav 11:54 Cosme Anguiano MD is Attending Physician. kav 11:54 Gordo Bob, JOSSELYN is Primary Nurse. hj 12:00 Triage completed. hj 12:01 Arm band placed on right wrist. hj 12:01 Patient has correct armband on for positive identification. Placed in gown. Bed in low hj position. Call light in reach. Side rails up X 1. 12:58 X-ray completed. Portable x-ray completed in exam room. Patient tolerated procedure jb2 well. 13:02 XRAY Chest (1 view) In Process Unspecified. EDMS 14:01 Bb Add On Sent. mh5 14:09 T\T\S collected, blood band applied to patient. Inserted saline lock: 20 gauge in left hj antecubital area, using aseptic technique. 14:13 Asim Kim DO is Hospitalizing Provider. kav 16:39 No provider procedures requiring assistance completed. Patient transferred, IV remains hj in place. intact. Administered Medications: 12:00 Drug: DuoNeb (3:1) (2.5 mg - 0.5 mg) 3 ml Route: Nebulizer; hj 13:16 Follow up: Response: No adverse reaction hj 12:00 Drug: NS 0.9% 1000 ml Route: IV; Rate: 75 ml/hr; Site: left antecubital; hj 15:11 Follow up: IV Status: Infusion continued hj 12:13 Drug: Lasix 40 mg Route: IVP; Site: left antecubital; hj 13:15 Follow up: Response: No adverse reaction hj Outcome: 14:15 Decision to Hospitalize by Provider. kav 16:10 ER care complete, transfer ordered by MD. jeff 16:40 Transferred by ground EMS to other acute care facility, Transfer form completed. X-rays hj sent w/ patient. 16:40 Condition: stable 16:40 Instructed on the need for transfer, Demonstrated understanding of instructions. 17:27 Patient left the ED. nandini Signatures: Dispatcher [employer] EDMaya Cleary, MASTER TAX ADVISOR MASTER TAX ADVISOR Tigre Pittman jb2 Gordo Bob, RN RN Danika Huffman [facility]
--- NOTE | 2017-08-14 15:42 | P.CNS ---
Date of Consult: 08/14/17 Reason for Consult: CHF admission Requesting Physician: Maya Peoples Primary Care Provider: Dr. Curiel; Cardiology-Dr. Galan; Pulmonary-Dr. Canseco Chief Complaint: Shortness of breath History of Present Illness: 87 yo CF presented to the ER with shortness of breath. The symptoms of shortness of breath has been present for the last week. It has been worse over the last 3 days. She was seen by Pulmonary early this week and given a steroid medication along with a change in her medication. She was given Anoro instead of Advair. She continued to have more SOB but with edema to the lower ext. She tried using her Albuterol but no improvement. She also reported some chest tightness. She has history of CHF, COPD, Hyperlipidemia, Pacemaker, Anemia, Chronic renal disease, PVD, Carotid arterial disease. In the ER she was found to be with fluid overload [place] [address]. Trop was elevated at 0.38. Creatinine was 2.5 with GFR of 18. Due to the nature of the findings, admission was recommended. I was asked to evaluate the patient for possible admission. Allergies acetylcysteine [From Mucomyst] Allergy (Mild, Verified 06/22/17 15:49) Shortness of breath Iodinated Contrast- Oral and IV Dye Allergy (Verified 06/22/17 15:49) Itching/Hives/Rash ciprofloxacin Adverse Reaction (Mild, Verified 06/22/17 15:49) muscle spasm Penicillins Adverse Reaction (Mild, Verified 06/22/17 15:49) Itching Home medications list reviewed: Yes Home Medications: Carvedilol [Coreg*] 25 mg PO BID 10/01/14 Fluticasone/Salmeterol [Advair 250/50 Diskus*] 1 inh IH BID 10/01/14 Pravastatin [Pravachol*] 80 mg PO BEDTIME 10/01/14 Albuterol Sulfate [Albuterol Sulfate 0.083% Neb Soln] 0.5 vial IH Q6H PRN Ipratropium [place] 0.2 mg IH Q6H PRN 04/24/17 Furosemide [Lasix] 40 mg PO DAILY 30 Days #30 tab 04/26/17 predniSONE [Deltasone] 10 mg PO BID #20 tab 04/26/17 - Past Medical/Surgical History Diabetic: No -: COPD, Oxygen dependent -: HTN -: Atrial fibrillation, Pacemaker -: GERD -: Chronic anemia -: CAD -: PVD -: Carotid arterial disease -: Hyperlipidemia -: Permanent Pacemaker to upper rt chest-Sep [address] Narvaez -: Cornary stents -: kidney stents and stents to ea leg -: Bilateral lens implants -: Bilateral carpal tunnel repair -: Hysterectomy -: Appendectomy -: Tonsillectomy Psychosocial/ Personal History: She is - Family History Mother Medical History: Heart disease, Diabetes Notes: of [place] Sister Medical History: Diabetes - Social History Smoking Status: Never smoker Alcohol use: No CD- Drugs: No Caffeine use: Yes Place of Residence: Home Review of Systems General: Weakness, As per HPI Eyes: Unremarkable ENT: Unremarkable Respiratory: Shortness of Breath, SOB with Excertion, As per HPI Cardiovascular: Chest Pain, Edema, As per HPI Gastrointestinal: Unremarkable Genitourinary: Unremarkable Musculoskeletal: Pedal edema, As per HPI Integumentary: Unremarkable Neurological: Unremarkable Lymphatics: Unremarkable Physical Examination General: Alert, In no apparent distress, Oriented x3, Cooperative HEENT: Atraumatic, Normocephalic, Mucous membr. moist/pink Neck: Supple, No Thyromegaly Respiratory: Diminished (bilateral), Crackles/rales (bilateral) Cardiovascular: Normal pulses, Regular rate/rhythm Gastrointestinal: Normal bowel sounds, Soft and benign, Non-distended, No tenderness, No masses, No rebound, No guarding Musculoskeletal: No erythema, No tenderness, No warmth Integumentary: No erythema, No warmth, No cyanosis, Tenderness/swelling (1-2 plus edema to the lower ext. ) Neurological: Normal speech, Normal strength at 5/5 x4 extr, Normal tone, Normal affect Laboratory Data (last 24 hrs) 08/14/17 12:00: PT 12.8 H, INR 1.08, APTT 23.2 L 08/14/17 12:00: Sodium 131 L, Potassium 4.4, BUN 34 H, Creatinine 2.50 H, Glucose 197 H, Magnesium 2.3, Total Bilirubin 0.4, AST 19, ALT 21, Alkaline Phosphatase 44 L - Problems (1) Elevated troponin Current Visit: Yes Status: Acute (2) Acute on chronic diastolic CHF (congestive heart failure) Onset Date: 04/24/17 Current Visit: No Status: Acute (3) Anemia Onset Date: 04/24/17 Current Visit: No Status: Chronic Qualifiers: Anemia type: iron deficiency Iron deficiency anemia type: unspecified iron deficiency Qualified Code(s): D50.9 - Iron deficiency anemia, unspecified (4) COPD (chronic obstructive pulmonary disease) Onset Date: 10/04/14 Current Visit: No Status: Chronic Qualifiers: COPD type: chronic bronchitis Chronic bronchitis type: mucopurulent Qualified Code(s): J41.1 - Mucopurulent chronic bronchitis (5) Shortness of breath Current Visit: No Status: Acute (6) Atrial fibrillation Onset Date: 03/26/16 Current Visit: No Status: Chronic Qualifiers: Atrial fibrillation type: chronic Qualified Code(s): I48.2 - Chronic atrial fibrillation (7) CAD (coronary artery disease) Onset Date: 10/04/14 Current Visit: No Status: Chronic Qualifiers: Coronary Disease-Associated Artery/Lesion type: [place] artery [place] vs. transplanted heart: [place] heart Associated angina: without angina Qualified Code(s): I25.10 - Atherosclerotic heart disease of [place] coronary artery without angina pectoris (8) Chronic renal disease Onset Date: 04/24/17 Current Visit: No Status: Acute Qualifiers: Chronic kidney disease stage: stage 4 (severe) Qualified Code(s): N18.4 - Chronic kidney disease, stage 4 (severe) (9) Gastroesophageal reflux disease Onset Date: 10/04/14 Current Visit: No Status: Chronic (10) Hyperlipidemia Onset Date: 04/24/17 Current Visit: No Status: Chronic Qualifiers: Hyperlipidemia type: unspecified Qualified Code(s): E78.5 - Hyperlipidemia , unspecified (11) Hypertension Onset Date: 10/04/14 Current Visit: No Status: Chronic Qualifiers: Hypertension type: essential hypertension Qualified Code(s): I10 - Essential (primary) hypertension (12) Obesity Onset Date: 04/24/17 Current Visit: No Status: Chronic Qualifiers: Obesity type: due to excess calories Obesity classification: adult class 1 (BMI 30 - 34.9) Serious obesity comorbidity presence: with serious comorbidity Body mass index: BMI 30.0-30.9 Qualified Code(s): E66.09 - Other obesity due to excess calories; Z68.30 - Body mass index (BMI) 30.0-30.9, adult; Z68.30 - Body mass index (BMI) 30.0-30.9, adult Conclusions/Impression: Patient was evaluated. She was given lasix in the ER. I agree with need for hospitalization to address: 1. Acute on chronic CHF, diastolic dysfunction 2. Elevated Troponin with hx of CAD, PVD, Carotid arterial disease 3. COPD, Oxygen dependent 4. Acute on chronic anemia with history of Iron def. 5. Acute on chronic renal disease 6. Hyperlipidemia Patient does not want to be admitted to this hospital. She prefers to be sent to a facility under the care of her [employer]-Dr. Galan. Therefore, will discuss with ER provider to arrange for transfer to address the above medical issues. Patient will need IV Lasix, Oxygen, Fluid restriction, Monitoring of Troponin/Hemoglobin/Creatinine. Adjustment in medication may be required. ECHO will be needed. Cardiac intervention may be required. Cardiology, Pulmonary and Nephrology consultation will be needed. Time Spent Managing Pts care (In Minutes): 60
[2017-08-14 15:51] LABS: Urine Blood 2+ (NEG); Urine Glucose NEGATIVE (NEG); Urine Protein 2+ (NEG); Urine Specific Gravity 1.015 (1.005-1.030); Urine pH 5.5 (5.0-7.0)
--- NOTE | 2017-08-14 16:53 | EKG ---
Test Date: 2017-08-14 Test Time: 13:10:52 Mortgage Protection Specialist: MEASUREMENT RESULTS: Intervals: Rate: 85 VA: 134 QRSD: 120 QT: 350 QTc: 416 [place]: P: 13 VA: 134 QRS: -16 T: 206 INTERPRETIVE STATEMENTS: Normal sinus rhythm Incomplete left bundle branch block ST abnormality, possible inferior subendocardial injury Abnormal ECG Compared to ECG 04/24/2017 07:03:55 Left bundle-branch block now present ST (T wave) deviation now present T-wave abnormality no longer present Possible ischemia no longer present Electronically Signed On 08-14-17 16:53:02 CDT by Maxi Burnett
[2017-08-14 17:31] VITALS: TEMP 98.3
[2017-08-14 17:35] VITALS: BP 117/63; O2SAT 99
== END 2017-08-14 17:27 ==
LOC: ER 11:50 → ERHOLD 14:08 → UNDOADMOB 14:08 → ER 17:27
DX: I13.0 Hypertensive heart and chronic kidney disease with heart failure and stage 1 through stage 4 chronic kidney disease, or unspecified chronic kidney disease (principal); N18.4 Chronic kidney disease, stage 4 (severe); I50.33 Acute on chronic diastolic (congestive) heart failure; D50.9 Iron deficiency anemia, unspecified; J44.9 Chronic obstructive pulmonary disease, unspecified; I48.2 Chronic atrial fibrillation; I25.10 Atherosclerotic heart disease of native coronary artery without angina pectoris; E78.5 Hyperlipidemia, unspecified; E66.09 Other obesity due to excess calories; Z68.30 Body mass index [BMI] 30.0-30.9, adult; K21.9 Gastro-esophageal reflux disease without esophagitis; Z88.0 Allergy status to penicillin; Z88.8 Allergy status to other drugs, medicaments and biological substances; Z91.041 Radiographic dye allergy status; N39.0 Urinary tract infection, site not specified
CPT/HCPCS: 36415; 71045; 80048; 80076; 81003; 82550; 82553; 83735; 83880; 84484; 85025; 85610; 85730; 86850; 86900; 86901; 93005; 94640; 96361; 96374; 99285; J7030

== ENCOUNTER 2017-09-06 00:05 | Inpatient (IN) | payer OTHER ==
[2017-09-06] MEDS ORDERED: ALBUTEROL 2.5 MG/3 ML NEB SOL ONE ×3 (00:14→01:41)
[2017-09-06] MEDS ORDERED: Magnesium Sulfate 2gm IVPB 2 G/50 ML BAG IV ONE (00:14)
[2017-09-06] MEDS ORDERED: IPRATROPIUM BROM 0.5MG/2.5ML ONE ×3 (00:14→01:42)
[2017-09-06] MEDS ORDERED: NITROGLYCERIN 0.4 MG/TAB SL ONE (00:22)
[2017-09-06 00:47] LABS: Absolute Lymphocytes (CBC) 2.1 K/uL (0.7-4.9); Absolute Monocytes 0.8 K/uL (0.1-1.3); Absolute Neutrophil 8.6 K/uL (1.8-8.0); Basophils % 0.6 % (0-1.3); Eosinophils % 2.4 % (0-4.4); Hematocrit 27.5 % (36.0-45.0); Lymphocytes % 17.9 % (15.3-44.8); MCH 29.5 pg (27.0-35.0); MCV 90.2 fL (80-100); MPV 8.8 fL (7.6-11.3); Monocytes % 6.4 % (3.3-12.3); RBC Red Blood Cell Count 3.05 M/uL (3.86-4.86)
[2017-09-06 01:17] LABS: Albumin 3.2 g/dL (3.4-5.0); Bilirubin Direct 0.2 mg/dL (0-0.2); Bilirubin Total 0.5 mg/dL (0.2-1.0); CKMB Creatine Kinase MB 2.6 ng/mL (0.3-3.6); Magnesium 2.5 mg/dL (1.8-2.4); Potassium 4.2 mmol/L (3.5-5.1); Protein, Total 6.7 g/dL (6.4-8.2)
[2017-09-06 01:20] LABS: Protime INR 1.02
--- NOTE | 2017-09-06 01:27 | EDPHYS ---
Physician Documentation [facility] Name: Bárbara Thakkar Age: 87 yrs Sex: Female : 1930 Arrival Date: 09/06/2017 Time: 00:06 Bed 4 Private MD: ED Physician John Jade HPI: 09/06 00:44 This 87 yrs old Female presents to ER via EMS with complaints of Breathing wa Difficulty. 00:44 The patient has shortness of breath at rest, severe resp distress. Onset: The wa symptoms/episode began/occurred today. Duration: The symptoms are continuous, and are markedly worse than the original presentation. The patient's shortness of breath has no apparent modifying factors. Associated signs and symptoms: Pertinent positives: chest pain, Pertinent negatives: non-productive cough, productive cough, dizziness, fever, hemoptysis, loss of consciousness, nausea, vomiting. Severity of symptoms: At their worst the symptoms were severe just prior to arrival, in the emergency department the symptoms are worse markedly. The patient has experienced similar episodes in the past, several times. The patient has not recently seen a physician. Historical: - Allergies: 00:10 acetylcysteine; tl2 00:10 Ciprofloxacin; tl2 00:10 Iodinated Contrast Media - IV Dye; tl2 00:10 PENICILLINS; tl2 - Home Meds: 00:10 Advair Diskus 250-50 mcg/dose Inhl dsdv 1 puff 2 times per day [Active]; albuterol tl2 sulfate 2.5 mg /3 mL (0.083 %) Inhl nebu [Active]; amlodipine 10 mg tab 1 tab once daily [Active]; aspirin 81 mg Oral chew 1 tab once daily [Active]; carvedilol 25 mg Oral tab 1 tab 2 times per day [Active]; Cozaar 100 mg Oral tab 1 tab once daily [Active]; ferrous gluconate 240 mg (27 mg iron) Oral tab daily [Active]; ipratropium bromide 0.02 % inhalation soln [Active]; Lasix 20 mg Oral tab 1 tab once daily [Active]; Plavix 75 mg Oral tab 1 tab once daily [Active]; pravastatin 80 mg Oral tab 1 tab once daily [Active]; - PMHx: 00:10 COPD; High Cholesterol; Hypertension; Pacemaker; tl2 - Immunization history:: Adult Immunizations up to date. - Social history:: Smoking status: unknown. - Ebola Screening: : No symptoms or risks identified at this time. - Family history:: not pertinent. - Hospitalizations: : No recent hospitalization is reported. ROS: 00:46 Eyes: Negative for injury, pain, redness, and discharge, ENT: Negative for injury, wa pain, and discharge, Neck: Negative for injury, pain, and swelling, Abdomen/GI: Negative for abdominal pain, nausea, vomiting, diarrhea, and constipation, Back: Negative for injury and pain, : Negative for injury, bleeding, discharge, and swelling, Skin: Negative for injury, rash, and discoloration, Neuro: Negative for headache, weakness, numbness, tingling, and seizure, Psych: Negative for depression, anxiety, suicide ideation, homicidal ideation, and hallucinations. 00:46 Constitutional: Negative for fever, weight loss. 00:46 Cardiovascular: Positive for chest pain, Negative for edema, orthopnea, palpitations, paroxysmal nocturnal dyspnea. 00:46 Respiratory: Positive for shortness of breath, on exertion. Negative for cough. Exam: 00:47 Head/Face: Normocephalic, atraumatic. Eyes: Pupils equal round and reactive to light, wa extra-ocular motions intact. Lids and lashes normal. Conjunctiva and sclera are non-icteric and not injected. Cornea within normal limits. Periorbital areas with no swelling, redness, or edema. ENT: Nares patent. No nasal discharge, no septal abnormalities noted. Tympanic membranes are normal and external auditory canals are clear. Oropharynx with no redness, swelling, or masses, exudates, or evidence of obstruction, uvula midline. Mucous membranes moist. Neck: Trachea midline, no thyromegaly or masses palpated, and no cervical lymphadenopathy. Supple, full range of motion without nuchal rigidity, or vertebral point tenderness. No Meningismus. Chest/axilla: Normal chest wall appearance and motion. Nontender with no deformity. No lesions are appreciated. Abdomen/GI: Soft, non-tender, with normal bowel sounds. No distension or tympany. No guarding or rebound. No evidence of tenderness throughout. Back: No spinal tenderness. No costovertebral tenderness. Full range of motion. Skin: Warm, dry with normal turgor. Normal color with no rashes, no lesions, and no evidence of cellulitis. Psych: Awake, alert, with orientation to person, place and time. Behavior, mood, and affect are within normal limits. 00:47 Constitutional: The patient appears in obvious distress, severely distressed, resp. 00:47 Cardiovascular: Rate: normal, Rhythm: regular, Pulses: no pulse deficits are appreciated, Heart sounds: normal, Edema: 1+ edema to level of left ankle, left foot, left toes, right ankle, right foot and right toes. 00:47 Respiratory: severe repiratory distress is noted, Respirations: tachypnea, Breath sounds: decreased breath sounds, that are severe, are scattered, Respiratory rate: tachypneic Vital Signs: 00:10 BP 150 / 99; Pulse 88; Resp 26; Pulse Ox 91% on R/A; Weight 72.57 kg; Height 5 ft. 4 tl2 in. (162.56 cm); 00:45 BP 117 / 101; Pulse 80; Resp 18 S; Pulse Ox 100% on BiPAP; jd3 01:15 BP 108 / 90; Pulse 73; Resp 19 S; Pulse Ox 100% on BiPAP; jd3 01:52 BP 108 / 74; Pulse 69; Resp 18 S; Pulse Ox 100% on BiPAP; jd3 02:15 BP 119 / 67; Pulse 73; Resp 20 S; Pulse Ox 100% on BiPAP; jd3 02:47 BP 111 / 54; Pulse 60; Resp 15; Pulse Ox 100% on BiPAP; mt 03:15 BP 102 / 56; Pulse 61; Resp 18 S; Pulse Ox 100% on BiPAP; jd3 00:10 Body Mass Index 27.46 (72.57 kg, 162.56 cm) tl2 MDM: 00:07 Patient medically screened. wa 00:49 Differential diagnosis: CHF exacerbation, Chronic Obstructive Pulmonary Disease wa Myocardial Infarction pneumonia, pulmonary edema, reactive airway disease, Unstable Angina. 01:23 Data reviewed: vital signs, nurses notes, lab test result(s), EKG, radiologic studies. ca Test interpretation: by ED physician or midlevel provider: EKG: HR 89. noted inferior-lateral ST depressions noted. worrisome for ischemia. Response to treatment: the patient's symptoms have markedly improved after treatment. Physician consultation: Yash Cueto DO was called at 01:25. Admission orders: after a detailed discussion of the patient's condition and case, the admit orders are written by ms. : Test interpretation: by ED physician or midlevel provider: CXR: no acute infiltrate. ca : Test interpretation: by ED physician or midlevel provider: labs: hyperglycemia. renal ca insufficiency. anemia. elevated BNP. elevated troponin. . 01:29 Test interpretation: by ED physician or midlevel provider: ABG: noted for resp ca acidosis. pH 7.165, pCO2 92.1. pO2 86.6. 01:30 ED course: pt tolerating BIPAP. alert. improving. elevated pCO2. will continue to ca monitor for CO2 narcosis. will consider intubation if fails Bipap. 09/06 00:07 Order name: Basic Metabolic Panel; Complete Time: : 09/06 00:07 Order name: CBC with Diff; Complete Time: : 09/06 00:07 Order name: Ckmb; Complete Time: : 09/06 00:07 Order name: CPK; Complete Time: : 09/06 00:07 Order name: LFT's; Complete Time: : 09/06 00:07 Order name: Magnesium; Complete Time: : 09/06 00:07 Order name: NT PRO-BNP; Complete Time: : 09/06 00:07 Order name: PT-INR 09/06 00:07 Order name: Ptt, Activated 09/06 00:07 Order name: Troponin (emerg Dept Use Only); Complete Time: : 09/06 00:07 Order name: XRAY Chest (1 view) 09/06 00:08 Order name: BIPAP ca 09/06 00:07 Order name: EKG; Complete Time: 00:08 09/06 00:07 Order name: Cardiac monitoring; Complete Time: 00:34 09/06 00:07 Order name: EKG - Nurse/Tech; Complete Time: 00:34 09/06 00:07 Order name: IV Saline Lock; Complete Time: 00:35 09/06 00:07 Order name: Labs collected and sent; Complete Time: 00:35 09/06 00:07 Order name: O2 Per Protocol; Complete Time: 00:35 09/06 00:07 Order name: O2 Sat Monitoring; Complete Time: 00:35 Administered Medications: 00:00 Drug: Albuterol - atroVENT (3:1) (2.5 mg - 0.5 mg) 3 ml Route: Nebulizer; jd3 02:19 Follow up: Response: No adverse reaction; Marked relief of symptoms; repritory given jd3 per order at 3 times at 0000, 0100, 0140. 00:16 Drug: Magnesium Sulfate 2 grams Route: IVPB; Infused Over: 2 hrs; Site: left jd3 antecubital; 01:41 Follow up: IV Status: Completed infusion bp 00:25 Drug: Nitroglycerin 0.4 mg Route: Sublingual; jd3 02:15 Follow up: Response: No adverse reaction jd3 02:15 Drug: Aspirin Chewable Tablet 324 mg Route: PO; jd3 02:59 Follow up: Response: No adverse reaction jd3 02:15 Drug: Rocephin - (cefTRIAXone) 2 grams Route: IVPB; Infused Over: 30 mins; Site: left jd3 antecubital; 02:59 Follow up: Response: No adverse reaction; IV Status: Completed infusion jd3 02:15 Drug: Zithromax 500 mg Route: IVPB; Infused Over: 1 hrs; Site: left wrist; jd3 03:28 Follow up: IV Status: Infusion continued upon admission jd3 Disposition: :29 Critical Care:. wa Disposition: 09/06/17 01:26 Hospitalization ordered by Julio Wilson for Inpatient Admission. Preliminary diagnosis are Acute Respiratory Distress, Acute COPD Exacerbation. - Bed requested for Intensive Care Unit. - Status is Inpatient Admission. jd3 - Condition is Guarded. - Problem is an acute exacerbation. - Symptoms have improved. UTI on Admission? No Critical care time excluding procedures: :29 Critical care time: Bedside Care: 15 minutes, Consultation: 7 minutes, Family wa Intervention: 8 minutes. Total time: 30 minutes Signatures: Dispatcher [employer] EDMS Laxmi Cornelius RN RN Dary England RN RN fc Knox, Taylor, RN RN tl2 John Jade MD MD wa Davies, Jonathon, RN RN jd3 Peltier, Brian RN bp Corrections: (The following items were deleted from the chart) 01:37 01:26 Hospitalization Ordered by Yash Cueto DO for Inpatient Admission. Preliminary mw diagnosis is Acute Respiratory Distress; Acute COPD Exacerbation. Bed requested for Intensive Care Unit. Status is Inpatient Admission. Condition is Guarded. Problem is an acute exacerbation. Symptoms have improved. UTI on Admission? No. wa 02:53 01:37 09/06/2017 01:26 Hospitalization Ordered by Yash Cueto DO for Inpatient mw Admission. Preliminary diagnosis is Acute Respiratory Distress; Acute COPD Exacerbation. Bed requested for Intensive Care Unit. Status is Inpatient Admission. Condition is Guarded. Problem is an acute exacerbation. Symptoms have improved. UTI on Admission? No. mw 03:28 02:53 09/06/2017 01:26 Hospitalization Ordered by Julio Wilson MD for Inpatient jd3 Admission. Preliminary diagnosis is Acute Respiratory Distress; Acute COPD Exacerbation. Bed requested for Intensive Care Unit. Status is Inpatient Admission. Condition is Guarded. Problem is an acute exacerbation. Symptoms have improved. UTI on Admission? No. mw
--- NOTE | 2017-09-06 01:27 | ER ---
Nurse's Notes [facility] Name: Bárbara Thakkar Age: 87 yrs Sex: Female : 1930 Arrival Date: 09/06/2017 Time: 00:06 Bed 4 Private MD: Diagnosis: Acute Respiratory Distress;Acute COPD Exacerbation Presentation: 09/06 00:08 Presenting complaint: EMS states: Pt in respiratory distress. Took one breathing tl2 treatment at home and then called EMS. EMS gave 2 neb treatments and 125 solu medrol IV. Pt has labored breathing and audible wheezes. Transition of care: patient was not received from another setting of care. Onset of symptoms was September 05, 2017 at 22:00. Risk Assessment: Do you want to hurt yourself or someone else? Patient reports no desire to harm self or others. Initial Sepsis Screen: Does the patient meet any 2 criteria? No. Patient's initial sepsis screen is negative. Does the patient have a suspected source of infection? No. Patient's initial sepsis screen is negative. Care prior to arrival: Medication(s) given: Albuterol Neb x 2, Atrovent Neb x 2, solu-medrol. 00:08 Method Of Arrival: EMS: [facility] tl2 00:08 Acuity: CECE 1 tl2 Triage Assessment: 00:10 General: Appears distressed, Behavior is anxious, restless. Pain: Denies pain. tl2 Respiratory: Reports shortness of breath labored breathing Airway is patent Respiratory effort is even, labored, using tripod position, Respiratory pattern is tachypnea Onset: The symptoms/episode began/occurred today, the patient has severe shortness of breath. Historical: - Allergies: 00:10 acetylcysteine; tl2 00:10 Ciprofloxacin; tl2 00:10 Iodinated Contrast Media - IV Dye; tl2 00:10 PENICILLINS; tl2 - Home Meds: 00:10 Advair Diskus 250-50 mcg/dose Inhl dsdv 1 puff 2 times per day [Active]; albuterol tl2 sulfate 2.5 mg /3 mL (0.083 %) Inhl nebu [Active]; amlodipine 10 mg tab 1 tab once daily [Active]; aspirin 81 mg Oral chew 1 tab once daily [Active]; carvedilol 25 mg Oral tab 1 tab 2 times per day [Active]; Cozaar 100 mg Oral tab 1 tab once daily [Active]; ferrous gluconate 240 mg (27 mg iron) Oral tab daily [Active]; ipratropium bromide 0.02 % inhalation soln [Active]; Lasix 20 mg Oral tab 1 tab once daily [Active]; Plavix 75 mg Oral tab 1 tab once daily [Active]; pravastatin 80 mg Oral tab 1 tab once daily [Active]; - PMHx: 00:10 COPD; High Cholesterol; Hypertension; Pacemaker; tl2 - Immunization history:: Adult Immunizations up to date. - Social history:: Smoking status: unknown. - Ebola Screening: : No symptoms or risks identified at this time. - Family history:: not pertinent. - Hospitalizations: : No recent hospitalization is reported. Screenin:11 Abuse screen: Denies threats or abuse. Nutritional screening: No deficits noted. tl2 Tuberculosis screening: No symptoms or risk factors identified. Fall Risk IV access (20 points). Gait- Weak (10 pts.). Assessment: 00:10 General: Appears distressed, Behavior is agitated. Pain: Denies pain. Neuro: Level of jd3 Consciousness is awake, confused, Oriented to person. Cardiovascular: Heart tones S1 S2 present Rhythm is regular. Respiratory: Airway is patent Respiratory effort is labored, Respiratory pattern is tachypnea retractions noted Breath sounds are coarse bilaterally. Breath sounds with wheezes bilaterally. GI: Abdomen is round Bowel sounds present X 4 quads. Abd is soft and non tender X 4 quads. : No signs and/or symptoms were reported regarding the genitourinary system. EENT: No signs and/or symptoms were reported regarding the EENT system. Derm: Skin is intact, Skin is diaphoretic, Skin is pale, Skin temperature is cool. 00:45 Reassessment: Patient and/or family updated on plan of care and expected duration. Pain jd3 level reassessed. Patient states symptoms have improved. 01:16 Reassessment: No changes from previously documented assessment. Patient and/or family jd3 updated on plan of care and expected duration. Pain level reassessed. pt A\T\O X 2. reports feeling better. 01:30 Reassessment: No changes from previously documented assessment. Patient and/or family jd3 updated on plan of care and expected duration. Pain level reassessed. 01:52 Reassessment: No changes from previously documented assessment. Patient and/or family jd3 updated on plan of care and expected duration. Pain level reassessed. 02:25 Reassessment: No changes from previously documented assessment. Patient and/or family jd3 updated on plan of care and expected duration. Pain level reassessed. 02:52 Reassessment: Patient and/or family updated on plan of care and expected duration. Pain jd3 level reassessed. A\T\O X 4, pt reports feeling better and breathing better Patient states symptoms have improved. 03:30 Reassessment: No changes from previously documented assessment. Patient and/or family jd3 updated on plan of care and expected duration. Pain level reassessed. bedside report done at ICU. pt reported understanding of need for admission. Vital Signs: 00:10 BP 150 / 99; Pulse 88; Resp 26; Pulse Ox 91% on R/A; Weight 72.57 kg; Height 5 ft. 4 tl2 in. (162.56 cm); 00:45 BP 117 / 101; Pulse 80; Resp 18 S; Pulse Ox 100% on BiPAP; jd3 01:15 BP 108 / 90; Pulse 73; Resp 19 S; Pulse Ox 100% on BiPAP; jd3 01:52 BP 108 / 74; Pulse 69; Resp 18 S; Pulse Ox 100% on BiPAP; jd3 02:15 BP 119 / 67; Pulse 73; Resp 20 S; Pulse Ox 100% on BiPAP; jd3 02:47 BP 111 / 54; Pulse 60; Resp 15; Pulse Ox 100% on BiPAP; mt 03:15 BP 102 / 56; Pulse 61; Resp 18 S; Pulse Ox 100% on BiPAP; jd3 00:10 Body Mass Index 27.46 (72.57 kg, 162.56 cm) tl2 ED Course: 00:06 Patient arrived in ED. ds1 00:07 John Jade MD is Attending Physician. wa 00:09 Triage completed. tl2 00:10 Arm band placed on right wrist. tl2 00:11 Patient has correct armband on for positive identification. Placed in gown. Bed in low tl2 position. Call light in reach. Side rails up X2. 00:11 Maintain EMS IV. Dressing intact. Good blood return noted. Site clean \T\ dry. Gauge \T\ tl 2 site: 20 g L AC. 00:14 XRAY Chest (1 view) In Process Unspecified. EDMS 00:24 X-ray completed. Portable x-ray completed in exam room. Patient tolerated procedure kw well. 00:25 Inserted saline lock: 22 gauge in left wrist, using aseptic technique. Blood collected. jd3 placed by BP RN. 00:36 Brandin Silva RN is Primary Nurse. jd3 01:25 Yash Cueto DO is Hospitalizing Provider. sc 02:53 Hospitalizing Provider role handed off by Yash Cueto DO 02:53 Julio Wilson MD is Hospitalizing Provider. 03:30 No provider procedures requiring assistance completed. Patient admitted, IV remains in jd3 place. Administered Medications: 00:00 Drug: Albuterol - atroVENT (3:1) (2.5 mg - 0.5 mg) 3 ml Route: Nebulizer; jd3 02:19 Follow up: Response: No adverse reaction; Marked relief of symptoms; repritory given jd3 per order at 3 times at 0000, 0100, 0140. 00:16 Drug: Magnesium Sulfate 2 grams Route: IVPB; Infused Over: 2 hrs; Site: left jd3 antecubital; 01:41 Follow up: IV Status: Completed infusion bp 00:25 Drug: Nitroglycerin 0.4 mg Route: Sublingual; jd3 02:15 Follow up: Response: No adverse reaction jd3 02:15 Drug: Aspirin Chewable Tablet 324 mg Route: PO; jd3 02:59 Follow up: Response: No adverse reaction jd3 02:15 Drug: Rocephin - (cefTRIAXone) 2 grams Route: IVPB; Infused Over: 30 mins; Site: left jd3 antecubital; 02:59 Follow up: Response: No adverse reaction; IV Status: Completed infusion jd3 02:15 Drug: Zithromax 500 mg Route: IVPB; Infused Over: 1 hrs; Site: left wrist; jd3 03:28 Follow up: IV Status: Infusion continued upon admission jd3 Intake: Outcome: 01:26 Decision to Hospitalize by Provider. wa 03:28 Patient left the ED. jd3 03:30 Admitted to ICU accompanied by nurse, via stretcher, room 2, with oxygen, on monitor, jd3 with chart, Report called to bedside report given to Emily Askew RN 03:30 Condition: stable 03:30 Instructed on the need for admit, Demonstrated understanding of instructions. Signatures: Dispatcher [employer] EDMS Laxmi Cornelius RN JOSSELYN Blayne Marybel ds1 Alexandria Stroud Taylor RN RN tl2 Kelli House mt, William, MD MD wa Davies, Jonathon, RN RN jd3 Albert Garvey RN RN bp Corrections: (The following items were deleted from the chart) 01:39 01:16 Reassessment: Patient and/or family updated on plan of care and expected jd3 duration. Pain level reassessed. Patient states symptoms have improved. jd3 01:39 00:45 Reassessment: No changes from previously documented assessment. Patient and/or jd3 family updated on plan of care and expected duration. Pain level reassessed. Patient states symptoms have improved. jd3
[2017-09-06] MEDS ORDERED: ASPIRIN 81 MG CHEWABLE TABLET ONE (02:02)
[2017-09-06] MEDS ORDERED: CEFTRIAXONE 1000 MG/VIAL ONE (02:05)
[2017-09-06] MEDS ORDERED: AZITHROMYCIN 500 MG/250 ML BAG ONE (02:05)
[2017-09-06] MEDS ORDERED: NA CHLORIDE 0.9% 100 ML IV ONE (02:06)
[2017-09-06] MEDS ORDERED: MAGNESIUM HYDROXIDE 8% 30 ML PO PRN (02:44)
[2017-09-06] MEDS ORDERED: ONDANSETRON 4 MG/2 ML VIAL IV PRN (02:44)
[2017-09-06] MEDS ORDERED: NA CHLORIDE 0.9% 1,000 ML IV SCH (03:00)
--- NOTE | 2017-09-06 06:14 | P.HP ---
Certification for Inpatient Patient admitted to: Inpatient With expected LOS: >2 Midnights Patient will require the following post-hospital care: None Practitioner: I am a practitioner with admitting privileges, knowledge of patient current condition, hospital course, and medical plan of care. Services: Services provided to patient in accordance with Admission requirements found in Title 42 Section 412.3 of the Code of Federal Regulations Patient History Date of Service: 09/06/17 Reason for admission: Shortness of breath History of Present Illness: Patient is an 87-year-old female who was admitted to the hospital with severe shortness of breath. Patient has a history of CHF and COPD. She states that she has not been drinking a more fluids normal. However, she did have difficulty with her respiratory status. She was admitted to the hospital for further evaluation. Allergies acetylcysteine [From Mucomyst] Allergy (Mild, Verified 09/06/17 04:01) Shortness of breath Iodinated Contrast- Oral and IV Dye Allergy (Verified 09/06/17 04:01) Itching/Hives/Rash ciprofloxacin Adverse Reaction (Mild, Verified 09/06/17 04:01) muscle spasm Penicillins Adverse Reaction (Mild, Verified 09/06/17 04:01) Itching Home Medications: Carvedilol [Coreg*] 25 mg PO BID 10/01/14 Fluticasone/Salmeterol [Advair 250/50 Diskus*] 1 inh IH BID 10/01/14 Pravastatin [Pravachol*] 80 mg PO BEDTIME 10/01/14 Albuterol Sulfate [Albuterol Sulfate 0.083% Neb Soln] 0.5 vial IH Q6H PRN Ipratropium [place] 0.2 mg IH Q6H PRN 04/24/17 Furosemide [Lasix] 40 mg PO DAILY 30 Days #30 tab 04/26/17 predniSONE [Deltasone] 10 mg PO BID #20 tab 04/26/17 - Past Medical/Surgical History Has patient received pneumonia vaccine in the past: Yes Diabetic: No -: COPD, Oxygen dependent -: HTN -: Atrial fibrillation, Pacemaker -: GERD -: Chronic anemia -: CAD -: PVD -: Carotid arterial disease -: Hyperlipidemia -: Permanent Pacemaker to upper rt chest-Sep [address] Narvaez -: Cornary stents -: kidney stents and stents to ea leg -: Bilateral lens implants -: Bilateral carpal tunnel repair -: Hysterectomy -: Appendectomy -: Tonsillectomy Psychosocial/ Personal History: She is - Family History Mother Medical History: Heart disease, Diabetes Notes: of MA Sister Medical History: Diabetes - Social History Smoking Status: Former smoker Alcohol use: No CD- Drugs: No Caffeine use: Yes Place of Residence: Home Review of Systems 10-point ROS is otherwise unremarkable Physical Examination - Vital Signs Temperature: 97 F Blood Pressure: 132/78 Pulse: 78 Respirations: 17 Pulse Ox (%): 99 - Physical Exam General: Alert, In no apparent distress, Oriented x3 HEENT: Atraumatic, Normocephalic Neck: Supple, 2+ carotid pulse no bruit Respiratory: Clear to auscultation bilaterally, Normal air movement Cardiovascular: Normal pulses, Regular rate/rhythm, Normal S1 S2, Abnormal S3 Gastrointestinal: Normal bowel sounds, Hypoactive, Soft and benign, Non- distended Musculoskeletal: No clubbing, No swelling Integumentary: No rashes, No breakdown, No significant lesion Neurological: Normal gait, Normal speech, Normal strength at 5/5 x4 extr, Normal tone, Sensation intact Urinary: Dialysis catheter - Studies Laboratory Data (last 24 hrs) 09/06/17 00:25: PT 12.0, INR 1.02, APTT 25.7 09/06/17 00:25: WBC 11.9 H, Hgb 9.0 L, Hct 27.5 L, Plt Count 306 09/06/17 00:25: Sodium 132 L, Potassium 4.2, BUN 28 H, Creatinine 2.40 H, Glucose 199 H, Magnesium 2.5 H, Total Bilirubin 0.5, AST 16, ALT 16, Alkaline Phosphatase 70 Assessment & Plan - Problems (Diagnosis) (1) Hypertensive disorder, systemic arterial Onset Date: ~04/24/17 Current Visit: No Status: Active (2) Acute diastolic heart failure Onset Date: 06/24/17 Current Visit: No Status: Acute (3) Edema Onset Date: 04/24/17 Current Visit: No Status: Acute Qualifiers: (4) Elevated troponin Current Visit: No Status: Acute (5) GERD (gastroesophageal reflux disease) Onset Date: 06/24/17 Current Visit: No Status: Acute (6) Lower GI bleeding Onset Date: 03/26/16 Current Visit: No Status: Acute (7) Paroxysmal A-fib Onset Date: 06/24/17 Current Visit: No Status: Acute (8) CAD (coronary artery disease) Onset Date: 10/04/14 Current Visit: No Status: Chronic Qualifiers: (9) COPD (chronic obstructive pulmonary disease) Onset Date: 10/04/14 Current Visit: No Status: Chronic Qualifiers: (10) Obesity Onset Date: 04/24/17 Current Visit: No Status: Chronic Qualifiers: (11) Status post placement of cardiac pacemaker Onset Date: 03/26/16 Current Visit: No Status: Chronic - Plan Plan: 1. Continue with nebs, steroids, and O2 per protocol 2. Continue to diurese patient. Monitor respiratory status closely 3. Continue with oral steroids 4. GI and DVT prophylaxis - Advance Directives Does patient have a Living Will: No Does patient have a Durable POA for Healthcare: No
[2017-09-06 06:26] LABS: Arterial Blood Carboxyhemoglob 1.6 % (0-1.5); Blood Gas Oxyhemoglobin 94.3 % (94-97); Blood O2 Saturation 96.2 % (92-98.5)
[2017-09-06] MEDS: ALBUTEROL 2.5 MG/3 ML NEB SOL NEB SCH ×3 (07:37→19:40)
[2017-09-06] MEDS: IPRATROPIUM BROM 0.5MG/2.5ML NEB SCH ×3 (07:37→19:40)
--- NOTE | 2017-09-06 08:04 | EKG ---
Test Date: 2017-09-06 Test Time: 00:03:54 Grinder Gear: SAM MEASUREMENT RESULTS: Intervals: Rate: 89 WI: QRSD: 138 QT: 410 QTc: 498 [place]: P: WI: QRS: 3 T: 157 INTERPRETIVE STATEMENTS: Wide QRS rhythm Nonspecific intraventricular block T wave abnormality, consider inferolateral ischemia Abnormal ECG Compared to ECG 08/14/2017 13:10:52 Uncertain supraventricular rhythm now present T-wave abnormality now present Possible ischemia now present Sinus rhythm no longer present Left bundle-branch block no longer present ST (T wave) deviation no longer present Electronically Signed On 09-06-17 08:03:09 CDT by Andrea Rao
--- NOTE | 2017-09-06 08:08 | RAD REPORT ---
EXAM DESCRIPTION: Td Single View09/06/2017 12:30 am CLINICAL HISTORY: Shortness of breath COMPARISON: July 2017 FINDINGS: Mild bilateral interstitial lung opacities are seen. . The heart is mildly enlarged. Pacem prosper leads are in place. IMPRESSION: Mild CHF
[2017-09-06] MEDS ORDERED: ENOXAPARIN 40 MG/0.4 ML SQ SCH (09:00)
[2017-09-06] MEDS: ENOXAPARIN 30 MG/0.3 ML SQ SCH (10:16)
--- NOTE | 2017-09-06 18:47 | EKG ---
Test Date: 2017-09-06 Test Time: 18:38:19 Pet Care Technician: MALIA MEASUREMENT RESULTS: Intervals: Rate: 102 ND: QRSD: 138 QT: 396 QTc: 516 [place]: P: ND: QRS: -7 T: 160 INTERPRETIVE STATEMENTS: Atrial fibrillation with rapid ventricular response with premature ventricular or aberrantly conducted complexes Left bundle branch block Abnormal ECG Compared to ECG 09/06/2017 00:03:54 Ventricular premature complex(es) now present Left bundle-branch block now present Uncertain supraventricular rhythm no longer present T-wave abnormality no longer present Possible ischemia no longer present Electronically Signed On 09-06-17 18:46:59 CDT by Andrea Rao
[2017-09-06] MEDS ORDERED: DIGOXIN 0.25 MG/ML AMP IV SCH (20:00)
[2017-09-07] MEDS: ALBUTEROL 2.5 MG/3 ML NEB SOL NEB SCH ×2 (01:32→08:04)
[2017-09-07] MEDS: IPRATROPIUM BROM 0.5MG/2.5ML NEB SCH ×4 (01:32→19:59)
[2017-09-07] MEDS ORDERED: METHYLPREDNISOLONE 125 MG INJ ONE (04:43)
[2017-09-07] MEDS ORDERED: FUROSEMIDE 20 MG/ 2ML VIAL ONE (04:43)
[2017-09-07] MEDS ORDERED: ALBUTEROL 2.5 MG/3 ML NEB SOL NEB PRN (04:54)
[2017-09-07] MEDS ORDERED: IPRATROPIUM BROM 0.5MG/2.5ML NEB PRN (04:54)
[2017-09-07] MEDS ORDERED: METHYLPREDNISOLONE 125 MG INJ IV ONE (04:56)
[2017-09-07] MEDS ORDERED: FUROSEMIDE 20 MG/ 2ML VIAL IV ONE (04:56)
[2017-09-07] MEDS ORDERED: IPRATROPIUM BROM 0.5MG/2.5ML ONE (04:57)
[2017-09-07] MEDS ORDERED: ALBUTEROL 2.5 MG/3 ML NEB SOL ONE (04:57)
--- NOTE | 2017-09-07 05:23 | P.PN ---
Date of Service: 09/07/17 Patient had actually been doing much better. Anticipating transferring her to the floor a starting physical therapy. However, she went into atrial fibrillation. We were able to get her back into a sinus rhythm after giving her IV Lopressor. However, she did get more short of breath through the evening and we had to put her back on BiPAP tonight. I have given her IV Lasix and repeated her nebs and IV steroids. We have Consulted Cardiology as well as Pulmonary. Will hold off on physical therapy until she feels a little bit better.
--- NOTE | 2017-09-07 08:17 | EKG ---
Test Date: 2017-09-06 Test Time: 18:39:13 Floral Merchandiser: MALIA MEASUREMENT RESULTS: Intervals: Rate: 102 [place]: QRSD: 142 QT: 390 QTc: 508 [place]: P: NH: QRS: -5 T: 175 INTERPRETIVE STATEMENTS: Atrial fibrillation with rapid ventricular response Nonspecific intraventricular block Marked ST abnormality, possible anterior subendocardial injury Abnormal ECG Compared to ECG 09/06/2017 18:38:19 ST (T wave) deviation now present Ventricular premature complex(es) no longer present Left bundle-branch block no longer present Electronically Signed On 09-07-17 08:16:26 CDT by Anrdea Rao
--- NOTE | 2017-09-07 08:17 | EKG ---
Test Date: 2017-09-06 Test Time: 20:47:21 Machine Maintenance Mechanic: RT Bejarano MEASUREMENT RESULTS: Intervals: Rate: 101 AL: QRSD: 140 QT: 396 QTc: 513 [place]: P: AL: QRS: -17 T: 115 INTERPRETIVE STATEMENTS: Atrial fibrillation with rapid ventricular response Left bundle branch block Abnormal ECG Compared to ECG 09/06/2017 18:39:13 Left bundle-branch block now present ST (T wave) deviation no longer present Electronically Signed On 09-07-17 08:16:20 CDT by Andrea Rao
[2017-09-07 08:41] LABS: Magnesium 2.7 mg/dL (1.8-2.4); Phosphorus 4.9 mg/dL (2.5-4.9); Thyroid Stimulating Hormone 3.03 uIU/mL (0.36-3.74)
--- NOTE | 2017-09-07 09:29 | RAD REPORT ---
EXAM DESCRIPTION: Td Single View09/07/2017 5:59 am CLINICAL HISTORY: Shortness of breath COMPARISON: September 06 FINDINGS: No significant change has occurred in mild bilateral interstitial lung opacities. The hear t is mildly enlarged. Pacemaker leads are in place. IMPRESSION: Mild CHF
[2017-09-07] MEDS: METHYLPREDNISOLONE 125 MG INJ IV SCH ×3 (09:45→17:30)
[2017-09-07] MEDS: ENOXAPARIN 30 MG/0.3 ML SQ SCH (09:45)
[2017-09-07 11:37] LABS: Absolute Lymphocytes (CBC) 0.6 K/uL (0.7-4.9); Absolute Monocytes 0.2 K/uL (0.1-1.3); Absolute Neutrophil 12.1 K/uL (1.8-8.0); Basophils % 0.1 % (0-1.3); Hematocrit 26.1 % (36.0-45.0); Lymphocytes % 4.7 % (15.3-44.8); MCH 29.9 pg (27.0-35.0); MCV 90.1 fL (80-100); MPV 8.8 fL (7.6-11.3); Monocytes % 1.4 % (3.3-12.3)
[2017-09-07 11:48] LABS: Bilirubin Total 0.2 mg/dL (0.2-1.0); Magnesium 2.8 mg/dL (1.8-2.4); Phosphorus 4.6 mg/dL (2.5-4.9); Potassium 4.3 mmol/L (3.5-5.1); Protein, Total 6.1 g/dL (6.4-8.2)
--- NOTE | 2017-09-07 12:00 | CON ---
Date of Consultation: 09/07/[address] to Dr. Wilson's service on 09/06/2017. The patient was seen on 09/07/2017. Reason For Consultation: Atrial fibrillation. History Of Present Illness: Ms. Thakkar is an 87-year-old white woman with history of atrial fibrilla tion in the past that is paroxysmal. She has a history of pacemaker, COPD, hypertension, dyslipidemi a, gastroesophageal reflux disease, came in with respiratory failure, CO2 retention, elevated white c ount, elevated BNP, working diagnosis is COPD exacerbation and possible new congestive heart failure. She has had paroxysmal atrial fibrillation, she remains in atrial fibrillation right now, but no ch est pain and denied any palpitation. She normally sees Dr. Galan for her cardiac issues. Mrs. Shawnee iglesias is a very poor candidate for anticoagulation, she is on aspirin and Plavix. I do not have any ca rdiac workup on her. Past Medical History: Includes COPD, pacemaker, hypertension, dyslipidemia, gastroesophageal reflux disease. Allergies: SHE IS ALLERGIC TO MUCOMYST, IODINE, CIPRO, AND PENICILLIN. Review of Systems: Negative. Social History: Negative. Family History: Negative. Medications: At home include inhalers, Coreg, Plavix, Cozaar, Protonix, Pravachol. Physical Examination: Vital signs: Stable. She was in atrial fibrillation at a rate of 80. She was on a BiPAP, pO2 was 8 4, pCO2 of 62, pH of 7.29. HEENT: Negative. Neck: Supple. No bruit or JVD or thyromegaly. Chest: Reveals bilateral wheezing on expiration, as well as some rales. Cardiac: Exam revealed an irregularly irregular rhythm and rate without any murmurs, gallops, or rub s. Abdomen: Benign. Extremities: Revealed no clubbing, cyanosis, or edema. Diagnostic Data: Her white count was 11,000. Creatinine of 2.4, troponin 0.05. Her BNP was 21,870. Impression And Plan: 1.Respiratory failure, most likely secondary to chronic obstructive pulmonary disease exacerbation a nd possibly new onset acute congestive heart failure. I would like her to get a 2D echocardiogram to rule that out. I agree with her present regimen. 2.Chronic atrial fibrillation status post pacemaker. She is on aspirin, Plavix, and Coreg and I wou ld continue those. I do not think she is a good candidate for anticoagulation considering her overal l functional status and comorbidities. We can increase her Coreg if we have to that would help with her CHF as well as atrial fibrillation. From a cardiac standpoint, she can go back and see Dr. Yadiel marshall after she leaves the hospital. 3.Hypertension, well controlled on Cozaar. 4.Gastroesophageal reflux, well controlled on Protonix. 5.Dyslipidemia, on Pravachol. 6.We will see what her echo shows and I will follow Mrs. Thakkar along with Dr. Wilson. MISSY/MODL Voice ID: [id number] Report ID: [id number]
--- NOTE | 2017-09-07 12:21 | P.PN ---
Subjective Date of Service: 09/07/17 Chief Complaint: Shortness of breath Pt seen and examined at bedside with RN. Chart reviewed. pt is currently in acute distress and having SOB while talking. no CP noted however, No other complains to offer at this time. Review of Systems General: As per HPI Physical Examination - Vital Signs Temperature: 97.7 F Blood Pressure: 138/68 Pulse: 95 Respirations: 25 Pulse Ox (%): 100 - Physical Exam General: Alert, Oriented x3, Mild distress HEENT: Atraumatic, PERRLA, EOMI Neck: Supple, JVD not distended Respiratory: Normal air movement, Expiratory wheezes, Inspiratory wheezes Cardiovascular: Normal S1 S2, Irregular heart rate/rhythm Gastrointestinal: Normal bowel sounds, Soft and benign, Non-distended, No tenderness Musculoskeletal: No tenderness Integumentary: No rashes Neurological: Normal speech, Normal tone, Normal affect Lymphatics: No axilla or inguinal lymphadenopathy - Studies Medications List Reviewed: Yes Assessment & Plan - Problems (Diagnosis) (1) Acute respiratory distress Onset Date: 09/06/17 Current Visit: Yes Status: Acute Plan: Hypercapnic RF. Most likley 2.2 to COPD exacerbation. -Duonebs, Steriods and BIPAP. -Will wean off the BIPAP as tolerated -Pulmonology consulted. Awaiting reccs -ESCOPD with use of oxygen at home and noncomplaince with medication makes her prognosis poor. (2) Acute exacerbation of chronic obstructive airways disease Current Visit: No Status: Acute Plan: See # 1 -resatrt on Fluticasone inhaler from home -Switch to Xopenex due to Afib (3) Acute on chronic diastolic CHF (congestive heart failure) Onset Date: 04/24/17 Current Visit: No Status: Acute Plan: Acute worsening of CHF - diastolic -On Coreg for now -S,p lasix in the ER. Lasic DC now due to pt being on the dry side. -ECHO pending -Cardiology consulted. Appreciated reccs (4) Chronic renal disease Onset Date: 04/24/17 Current Visit: No Status: Chronic Plan: BUN/CR elevated today due to patient being over diuresed. -Stop Lasix and repeat Lab work in AM deyanira. -Bolus IV of 250ml.hr if needed Qualifiers: Chronic kidney disease stage: stage 3 (moderate) Qualified Code(s): N18.3 - Chronic kidney disease, stage 3 (moderate) (5) GERD (gastroesophageal reflux disease) Onset Date: 06/24/17 Current Visit: No Status: Chronic Qualifiers: Esophagitis presence: without esophagitis Qualified Code(s): K21.9 - Gastro -esophageal reflux disease without esophagitis (6) Hypertension, essential Onset Date: 06/24/17 Current Visit: No Status: Chronic (7) Afib Onset Date: 10/04/14 Current Visit: No Status: Chronic Plan: Uncontrollled due to noncompliance with medication -On Coreg and ASA/Plavix -ECHO pending Qualifiers: Atrial fibrillation type: chronic Qualified Code(s): I48.2 - Chronic atrial fibrillation (8) CAD (coronary artery disease) Onset Date: 10/04/14 Current Visit: No Status: Chronic Qualifiers: Coronary Disease-Associated Artery/Lesion type: [place] artery [place] vs. transplanted heart: [place] heart Associated angina: without angina Qualified Code(s): I25.10 - Atherosclerotic heart disease of [place] coronary artery without angina pectoris (9) History of cardiac pacemaker Onset Date: 04/24/17 Current Visit: No Status: Chronic (10) Hyperlipidemia Onset Date: 04/24/17 Current Visit: No Status: Chronic Qualifiers: Hyperlipidemia type: unspecified Qualified Code(s): E78.5 - Hyperlipidemia , unspecified Discharge Plan: Home Plan to discharge in: 48 Hours - Code Status/Comfort Care Code Status Assessed: Yes Critical Care: No
[2017-09-07] MEDS ORDERED: ALPRAZOLAM 0.25 MG TABLET PO ONE (12:41)
[2017-09-07 13:02] LABS: Blood Morphology Comment NOT SEEN (NOT SEEN); Platelet Estimate ADEQ; Urine White Blood Cell Casts OK
[2017-09-07] MEDS: CARVEDILOL 25 MG TAB PO SCH ×2 (13:28→20:56)
[2017-09-07] MEDS: LOSARTAN POTASSIUM 50 MG TABLET PO SCH (13:28)
[2017-09-07] MEDS: CLOPIDOGREL 75 MG TABLET PO SCH (13:28)
[2017-09-07] MEDS: LEVALBUTEROL 0.63 MG/3 ML NEB NEB PRN ×2 (13:49→19:59)
[2017-09-07] MEDS: MULTIVIT W/ MINERAL TAB PO SCH (20:56)
[2017-09-07] MEDS: ADVAIR IH SCH (20:56)
[2017-09-07] MEDS: ATORVASTATIN 10 MG TAB PO SCH (20:57)
[2017-09-08] MEDS: METHYLPREDNISOLONE 125 MG INJ IV SCH ×2 (00:03→06:00)
[2017-09-08] MEDS: IPRATROPIUM BROM 0.5MG/2.5ML NEB SCH ×4 (01:23→20:00)
[2017-09-08] MEDS: ACETAMINOPHEN 500 MG TAB PO PRN ×2 (01:33→06:00)
[2017-09-08 05:42] LABS: Absolute Lymphocytes (CBC) 0.5 K/uL (0.7-4.9); Absolute Monocytes 0.1 K/uL (0.1-1.3); Absolute Neutrophil 5.5 K/uL (1.8-8.0); Hematocrit 24.3 % (36.0-45.0); Lymphocytes % 8.7 % (15.3-44.8); MCH 30.4 pg (27.0-35.0); MCV 89.1 fL (80-100); MPV 8.7 fL (7.6-11.3); Monocytes % 2.3 % (3.3-12.3); RBC Red Blood Cell Count 2.73 M/uL (3.86-4.86)
[2017-09-08 06:01] LABS: Albumin 2.9 g/dL (3.4-5.0); Bilirubin Total 0.3 mg/dL (0.2-1.0); Potassium 4.3 mmol/L (3.5-5.1); Protein, Total 5.7 g/dL (6.4-8.2)
[2017-09-08] MEDS ORDERED: HOME MED 1 EA UNK (Pravastatin Sodium [Pravastatin Sodium] 80 MG) PO SCH (09:00)
[2017-09-08] MEDS ORDERED: ALPRAZOLAM 0.25 MG TABLET PO PRN (09:24)
[2017-09-08] MEDS: PANTOPRAZOLE 40MG TABLET PO SCH (09:30)
[2017-09-08] MEDS: CLOPIDOGREL 75 MG TABLET PO SCH (09:30)
[2017-09-08] MEDS: ENOXAPARIN 30 MG/0.3 ML SQ SCH (09:30)
[2017-09-08] MEDS: FERROUS SULFATE 325 MG TAB PO SCH (09:30)
[2017-09-08] MEDS: ASCORBIC ACID 500 MG TABLET PO SCH (09:30)
[2017-09-08] MEDS: CARVEDILOL 25 MG TAB PO SCH ×2 (09:32→21:21)
[2017-09-08] MEDS: ADVAIR IH SCH (09:32)
[2017-09-08] MEDS: ARFORMOTEROL TARTRATE 15 MCG/2 ML VIAL.NEB NEB SCH ×2 (10:42→20:00)
--- NOTE | 2017-09-08 10:44 | P.CNS ---
Date of Consult: 08/30/17 Reason for Consult: COPD exacerbation Chief Complaint: Shortness of breath History of Present Illness: Patient is 87 years of age well known to me with a history of COPD admitted with worsening dyspnea this came on rather suddenly she is compliant with her medications currently was taking Anoro denies any cough sputum opt this is of chest pain Allergies acetylcysteine [From Mucomyst] Allergy (Mild, Verified 09/06/17 04:01) Shortness of breath Iodinated Contrast- Oral and IV Dye Allergy (Verified 09/06/17 04:01) Itching/Hives/Rash ciprofloxacin Adverse Reaction (Mild, Verified 09/06/17 04:01) muscle spasm Penicillins Adverse Reaction (Mild, Verified 09/06/17 04:01) Itching Home Medications: Albuterol Sulfate [Ventolin Hfa] 2 puff IH QID PRN 09/06/17 Ascorbic Acid [Vitamin C] 250 mg PO DAILY 09/06/17 Carvedilol 25 mg PO BID 09/06/17 Clopidogrel Bisulfate [Plavix] 75 mg PO DAILY 09/06/17 Ferrous Sulfate 325 mg PO DAILY 09/06/17 Fluticasone/Salmeterol [Advair 250-50 Diskus] 2 puff IH DAILY 09/06/17 Losartan Potassium [Cozaar] 100 mg PO BEDTIME 09/06/17 Multivit,Ther Iron,Ca,FA & Min [Centrum Tablet*] 1 tab PO BEDTIME 09/06/17 Pantoprazole Sodium [Protonix] 40 mg PO DAILY 09/06/17 Pravastatin Sodium 80 mg PO DAILY 09/06/17 Umeclidinium Brm/Vilanterol Tr [Anoro Ellipta 62.5-25 Mcg INH] 1 each IH DAILY 09/06/17 - Past Medical/Surgical History Diabetic: No -: COPD, Oxygen dependent -: HTN -: Atrial fibrillation, Pacemaker -: GERD -: Chronic anemia -: CAD -: PVD -: Carotid arterial disease -: Hyperlipidemia -: Permanent Pacemaker to upper rt chest-Sep [address] Narvaez -: Cornary stents -: kidney stents and stents to ea leg -: Bilateral lens implants -: Bilateral carpal tunnel repair -: Hysterectomy -: Appendectomy -: Tonsillectomy Psychosocial/ Personal History: She is - Family History Mother Medical History: Heart disease, Diabetes Notes: of [place] Sister Medical History: Diabetes - Social History Smoking Status: Unknown if ever smoked Alcohol use: No CD- Drugs: No Caffeine use: Yes Place of Residence: Home Review of Systems 10-point ROS is otherwise unremarkable General: Weakness Respiratory: Cough, Shortness of Breath Physical Examination Temp Pulse Resp BP Pulse Ox 98 F 104 H 21 H 136/89 98 09/08/17 04:00 09/08/17 09:32 09/08/17 06:00 09/08/17 09:32 09/08/17 06:00 General: Alert, Oriented x3, Mild distress Neck: Supple Respiratory: Expiratory wheezes Cardiovascular: No edema, Regular rate/rhythm Gastrointestinal: Normal bowel sounds, Soft and benign Musculoskeletal: No clubbing, No swelling - Problems (1) Acute exacerbation of chronic obstructive airways disease Current Visit: No Status: Acute Plan: Patient is 87 years of age well known to me admitted with acute exacerbation of her underlying COPD but possible that her inhalers are not working and she needs to be changed over to nebulize bronchodilators patient has renal insufficiency mild normocytic anemia chest x-ray shows some chronic interstitial changes with a pacemaker no evidence of an infection patient was mildly hypercapnic Patient also has renal failure Richi to fluid restrict probably benefit from low-dose of Lasix at home
--- NOTE | 2017-09-08 11:23 | P.PN ---
Subjective Date of Service: 09/08/17 Chief Complaint: COPD exacerbation Subjective: Improving (Patient is improving nebulizer helping) Review of Systems General: Weakness Respiratory: Shortness of Breath Physical Examination - Vital Signs Temperature: 98 F Blood Pressure: 136/89 Pulse: 104 Respirations: 21 Pulse Ox (%): 98 - Physical Exam General: Alert, Oriented x3 Respiratory: Expiratory wheezes Cardiovascular: No edema, Normal pulses - Studies Medications List Reviewed: Yes Assessment & Plan - Problems (Diagnosis) (1) Acute exacerbation of chronic obstructive airways disease Current Visit: No Status: Acute Plan: Patient admitted with COPD exacerbation I suggest changing though her over to nebulized Brovana at home and Dc all the Advair and Anoro. She may have some volume overload patient has been advised to fluid restrict and take Lasix been started on regular maintenance dose of Lasix this later 20 mg baby increase to 40 patient has home O2 continue with nebulize albuterol
--- NOTE | 2017-09-08 11:47 | P.PN ---
Subjective Date of Service: 09/08/17 Chief Complaint: COPD exacerbation Pt seen and examined at bedside with RN. Chart reviewed. Pt improved markedly today. No acute distress noted. Patient is at 2 L nasal cannula and saturating at 98%. Does not appear to be anxious at all. Review of Systems General: As per HPI Physical Examination - Vital Signs Temperature: 98 F Blood Pressure: 136/89 Pulse: 104 Respirations: 21 Pulse Ox (%): 98 - Physical Exam General: Alert, In no apparent distress HEENT: Atraumatic, PERRLA, EOMI Neck: Supple, JVD not distended Respiratory: Normal air movement, Expiratory wheezes Cardiovascular: Normal S1 S2, Irregular heart rate/rhythm Gastrointestinal: Normal bowel sounds, No tenderness Musculoskeletal: No tenderness Integumentary: No rashes Neurological: Normal speech, Normal tone, Normal affect Lymphatics: No axilla or inguinal lymphadenopathy - Studies Medications List Reviewed: Yes Assessment & Plan - Problems (Diagnosis) (1) Acute respiratory distress Onset Date: 09/06/17 Current Visit: Yes Status: Acute Plan: Hypercapnic RF. Most saini 2.2 to COPD exacerbation. Improved today. -Duonebs, PO Steroids and now on 2LNC. pt uses 2L NC at home. -Pulmonology consulted. Reccs appreciated -DC adviar Inhaler -Start on Brovana neb. -ESCOPD with use of oxygen at home and noncompliance with medication makes her prognosis poor. (2) Acute exacerbation of chronic obstructive airways disease Current Visit: No Status: Acute Plan: See # 1 -Switch to Xopenex due to Afib on Duonebs -Started on Brovana today. other Home inhalers DC (3) Acute on chronic diastolic CHF (congestive heart failure) Onset Date: 04/24/17 Current Visit: No Status: Acute Plan: Acute worsening of CHF - diastolic -On Coreg for now -S,p lasix in the ER. Lasic DC now due to pt being on the dry side. -ECHO pending -Cardiology consulted. Appreciated reccs (4) Chronic renal disease Onset Date: 04/24/17 Current Visit: No Status: Chronic Plan: FANTASMA due to patient being on lasix here in the ER -BUN/CR improved today. Lasix Stopped -Bolus IV of 250ml.hr if needed Qualifiers: Chronic kidney disease stage: stage 3 (moderate) Qualified Code(s): N18.3 - Chronic kidney disease, stage 3 (moderate) (5) GERD (gastroesophageal reflux disease) Onset Date: 06/24/17 Current Visit: No Status: Chronic Qualifiers: Esophagitis presence: without esophagitis Qualified Code(s): K21.9 - Gastro -esophageal reflux disease without esophagitis (6) Hypertension, essential Onset Date: 06/24/17 Current Visit: No Status: Chronic (7) Afib Onset Date: 10/04/14 Current Visit: No Status: Chronic Plan: Uncontrollled due to noncompliance with medication -On Coreg and ASA/Plavix -ECHO pending Qualifiers: Atrial fibrillation type: chronic Qualified Code(s): I48.2 - Chronic atrial fibrillation (8) CAD (coronary artery disease) Onset Date: 10/04/14 Current Visit: No Status: Chronic Qualifiers: Coronary Disease-Associated Artery/Lesion type: [place] artery [place] vs. transplanted heart: [place] heart Associated angina: without angina Qualified Code(s): I25.10 - Atherosclerotic heart disease of [place] coronary artery without angina pectoris (9) History of cardiac pacemaker Onset Date: 04/24/17 Current Visit: No Status: Chronic (10) Hyperlipidemia Onset Date: 04/24/17 Current Visit: No Status: Chronic Qualifiers: Hyperlipidemia type: unspecified Qualified Code(s): E78.5 - Hyperlipidemia , unspecified Discharge Plan: Home Plan to discharge in: 24 Hours - Code Status/Comfort Care Code Status Assessed: Yes Critical Care: Yes
[2017-09-08] MEDS: FUROSEMIDE 20 MG TABLET PO SCH ×2 (12:18→16:41)
[2017-09-08] MEDS: LEVALBUTEROL 0.63 MG/3 ML NEB NEB PRN (13:36)
[2017-09-08] MEDS: LOSARTAN POTASSIUM 50 MG TABLET PO SCH (21:21)
[2017-09-08] MEDS: MULTIVIT W/ MINERAL TAB PO SCH (21:21)
[2017-09-08] MEDS: ATORVASTATIN 10 MG TAB PO SCH (21:21)
[2017-09-08] MEDS: predniSONE 20 MG TAB PO SCH (21:22)
[2017-09-09] MEDS: IPRATROPIUM BROM 0.5MG/2.5ML NEB SCH ×4 (01:42→19:22)
[2017-09-09 06:09] LABS: Absolute Lymphocytes (CBC) 0.5 K/uL (0.7-4.9); Absolute Monocytes 0.3 K/uL (0.1-1.3); Absolute Neutrophil 5.8 K/uL (1.8-8.0); Basophils % 0.1 % (0-1.3); Hematocrit 25.1 % (36.0-45.0); Lymphocytes % 8.1 % (15.3-44.8); Monocytes % 5.2 % (3.3-12.3); RBC Red Blood Cell Count 2.82 M/uL (3.86-4.86)
[2017-09-09 06:27] LABS: Albumin 3.1 g/dL (3.4-5.0); Bilirubin Total 0.3 mg/dL (0.2-1.0); Protein, Total 5.9 g/dL (6.4-8.2)
[2017-09-09] MEDS: ARFORMOTEROL TARTRATE 15 MCG/2 ML VIAL.NEB NEB SCH ×2 (07:34→19:22)
[2017-09-09] MEDS: ASCORBIC ACID 500 MG TABLET PO SCH (08:28)
[2017-09-09] MEDS: FERROUS SULFATE 325 MG TAB PO SCH (08:29)
[2017-09-09] MEDS: CARVEDILOL 25 MG TAB PO SCH ×2 (08:29→21:05)
[2017-09-09] MEDS: FUROSEMIDE 20 MG TABLET PO SCH (08:29)
[2017-09-09] MEDS: ENOXAPARIN 30 MG/0.3 ML SQ SCH (08:29)
[2017-09-09] MEDS: PANTOPRAZOLE 40MG TABLET PO SCH (08:29)
[2017-09-09] MEDS: CLOPIDOGREL 75 MG TABLET PO SCH (08:29)
[2017-09-09] MEDS: predniSONE 20 MG TAB PO SCH ×2 (08:29→21:04)
--- NOTE | 2017-09-09 12:24 | P.PN ---
Subjective Date of Service: 09/09/17 Chief Complaint: COPD exacerbation Pt seen and examined at bedside with RN. Chart reviewed. No acute distress noted. Patient is at 2 L nasal cannula and saturating at 98%. Does not appear to be anxious at all. Review of Systems General: As per HPI Physical Examination - Vital Signs Temperature: 98.2 F Blood Pressure: 166/82 Pulse: 87 Respirations: 18 Pulse Ox (%): 100 - Physical Exam General: Alert, In no apparent distress, Oriented x3 HEENT: Atraumatic, PERRLA, EOMI Neck: Supple, JVD not distended Respiratory: Normal air movement, Expiratory wheezes, Inspiratory wheezes Cardiovascular: Regular rate/rhythm, Normal S1 S2 Gastrointestinal: Normal bowel sounds, No tenderness Musculoskeletal: No tenderness Integumentary: No rashes Neurological: Normal speech, Normal tone, Normal affect Lymphatics: No axilla or inguinal lymphadenopathy - Studies Medications List Reviewed: Yes Assessment & Plan - Problems (Diagnosis) (1) Acute respiratory distress Onset Date: 09/06/17 Current Visit: Yes Status: Acute Plan: Hypercapnic RF. Most likley 2.2 to COPD exacerbation. Improved today. -Duonebs, PO Steroids and now on 2LNC. pt uses 2L NC at home. -Pulmonology consulted. Reccs appreciated -DC adviar Inhaler -Start on Brovana neb. -ESCOPD with use of oxygen at home and noncompliance with medication makes her prognosis poor. (2) Acute exacerbation of chronic obstructive airways disease Current Visit: No Status: Acute Plan: See # 1 -Switch to Xopenex due to Afib on Duonebs -Started on Brovana today. other Home inhalers DC (3) Acute on chronic diastolic CHF (congestive heart failure) Onset Date: 04/24/17 Current Visit: No Status: Acute Plan: Acute worsening of CHF - diastolic -On Coreg -Cardiology consulted. Appreciate Reccs -ECHO completed -Restarted yesterday however Kidney Function Worsened so decrease the dose of Lasix. Monitor for 24hrs if still worsening then Stop Lasix (4) Chronic renal disease Onset Date: 04/24/17 Current Visit: No Status: Chronic Plan: FANTASMA due to Hypovolemia -BUN/CR elevated today. Lasix dose decreased.if worsening deyanira then DC lasix. -Bolus IV of 250ml.hr if needed Qualifiers: Chronic kidney disease stage: stage 3 (moderate) Qualified Code(s): N18.3 - Chronic kidney disease, stage 3 (moderate) (5) GERD (gastroesophageal reflux disease) Onset Date: 06/24/17 Current Visit: No Status: Chronic Qualifiers: Esophagitis presence: without esophagitis Qualified Code(s): K21.9 - Gastro -esophageal reflux disease without esophagitis (6) Hypertension, essential Onset Date: 06/24/17 Current Visit: No Status: Chronic (7) Afib Onset Date: 10/04/14 Current Visit: No Status: Chronic Plan: Uncontrollled due to noncompliance with medication -On Coreg and ASA/Plavix -ECHO Qualifiers: Atrial fibrillation type: chronic Qualified Code(s): I48.2 - Chronic atrial fibrillation (8) CAD (coronary artery disease) Onset Date: 10/04/14 Current Visit: No Status: Chronic Qualifiers: Coronary Disease-Associated Artery/Lesion type: [place] artery [place] vs. transplanted heart: [place] heart Associated angina: without angina Qualified Code(s): I25.10 - Atherosclerotic heart disease of [place] coronary artery without angina pectoris (9) History of cardiac pacemaker Onset Date: 04/24/17 Current Visit: No Status: Chronic (10) Hyperlipidemia Onset Date: 04/24/17 Current Visit: No Status: Chronic Qualifiers: Hyperlipidemia type: unspecified Qualified Code(s): E78.5 - Hyperlipidemia , unspecified Discharge Plan: Home Plan to discharge in: 24 Hours - Code Status/Comfort Care Code Status Assessed: Yes Critical Care: No
--- NOTE | 2017-09-09 13:28 | ECHO ---
HEIGHT: 5 ft 4 in WEIGHT: 132 lb 9.6 oz DATE OF STUDY: 09/09/[address]: Andrea Rao MD 2-DIMENSIONAL: YES M.MODE: YES DOPPLER: YES COLOR FLOW: YES TDS: NO PORTABLE: NO DEFINITY: NO BUBBLE STUDY: NO DIAGNOSIS: ATRIAL FIBRILLATION, CONGESTIVE HEART FAILURE CARDIAC HISTORY: CATHERIZATION: SURGERY: PROSTHETIC VALVE: PACEMAKER: MEASUREMENTS (cm) DIASTOLIC (NORMALS) SYSTOLIC (NORMALS) IVSd 1.4 (0.6-1.2) LA Diam 3.9 (1.9-4.0) LVEF 41% LVIDd 3.3 (3.5-5.7) LVIDs 2.6 (2.0-3.5) %FS 19% LVPWd 1.4 (0.6-1.2) Ao Diam 2.5 (2.0-3.7) 2 DIMENSIONAL ASSESSMENT: RIGHT ATRIUM: NORMAL LEFT ATRIUM: DILATED RIGHT VENTRICLE: NORMAL LEFT VENTRICLE: LEFT VENTRICULAR HYPERTROPHY TRICUSPID VALVE: NORMAL MITRAL VALVE: MITRAL ANNULAR CALCIFICATION PULMONIC VALVE: NORMAL AORTIC VALVE: SCLEROSIS PERICARDIAL EFFUSION: NONE AORTIC ROOT: NORMAL LEFT VENTRICULAR WALL MOTION: MILD GLOBAL HYPOKINESIS. DOPPLER/COLOR FLOW: MILD MITRAL REGURGITATION. NO AORTIC STENOSIS OR AORTIC REGURGITATION. COMMENTS: MILDLY DEPRESSED LEFT VENTRICULAR EJECTION FRACTION. DILATED LEFT ATRIUM. LEFT VENTRICULAR HYPERTROPHY. MILD MITRAL REGURGITATION. AORTIC SCLEROSIS WITH NO AORTIC STENOSIS OR AORTIC REGURGITATION. TECHNOLOGIST: Preeti HALEY
[2017-09-09] MEDS: ATORVASTATIN 10 MG TAB PO SCH (21:04)
[2017-09-09] MEDS: MULTIVIT W/ MINERAL TAB PO SCH (21:04)
[2017-09-09] MEDS: LOSARTAN POTASSIUM 50 MG TABLET PO SCH (21:05)
[2017-09-10] MEDS: IPRATROPIUM BROM 0.5MG/2.5ML NEB SCH ×3 (02:18→14:04)
[2017-09-10 05:51] VITALS: BMI 23.8
[2017-09-10 05:55] LABS: Absolute Lymphocytes (CBC) 0.5 K/uL (0.7-4.9); Absolute Monocytes 0.3 K/uL (0.1-1.3); Absolute Neutrophil 5.5 K/uL (1.8-8.0); Hematocrit 23.8 % (36.0-45.0); Lymphocytes % 7.9 % (15.3-44.8); MCH 30.4 pg (27.0-35.0); Monocytes % 5.3 % (3.3-12.3); RBC Red Blood Cell Count 2.67 M/uL (3.86-4.86)
[2017-09-10 06:10] LABS: Albumin 2.8 g/dL (3.4-5.0); Bilirubin Total 0.4 mg/dL (0.2-1.0); Potassium 4.2 mmol/L (3.5-5.1); Protein, Total 5.3 g/dL (6.4-8.2)
[2017-09-10] MEDS: ARFORMOTEROL TARTRATE 15 MCG/2 ML VIAL.NEB NEB SCH (08:06)
[2017-09-10] MEDS ORDERED: FUROSEMIDE 20 MG TABLET PO SCH (09:00)
[2017-09-10 09:19] VITALS: O2SAT 99
[2017-09-10] MEDS: ENOXAPARIN 30 MG/0.3 ML SQ SCH (09:32)
[2017-09-10] MEDS: PANTOPRAZOLE 40MG TABLET PO SCH (09:33)
[2017-09-10] MEDS: predniSONE 20 MG TAB PO SCH (09:33)
[2017-09-10] MEDS: CLOPIDOGREL 75 MG TABLET PO SCH (09:33)
[2017-09-10] MEDS: CARVEDILOL 25 MG TAB PO SCH (09:34)
[2017-09-10] MEDS: FERROUS SULFATE 325 MG TAB PO SCH (09:34)
[2017-09-10] MEDS: ASCORBIC ACID 500 MG TABLET PO SCH (09:34)
[2017-09-10 16:23] VITALS: BP 162/74; TEMP 96.9
--- NOTE | 2017-09-10 16:25 | P.DS ---
Admission Date: 09/06/17 Discharge Date: 09/10/17 Primary Care Provider: Dr. Curiel; Cardiology-Dr. Galan; Pulmonary -Dr. Canseco Disposition: TRANSFER TO SNF - MEDICAL Discharge Condition: GOOD Reason for Admission: COPD exacerbation Consultations: Pulmonary-Dr Canseco Procedures: Echocardiogram: Ejection fraction 41% LEFT VENTRICULAR WALL MOTION: MILD GLOBAL HYPOKINESIS. DOPPLER/COLOR FLOW: MILD MITRAL REGURGITATION. NO AORTIC STENOSIS OR AORTIC REGURGITATION. COMMENTS: MILDLY DEPRESSED LEFT VENTRICULAR EJECTION FRACTION. DILATED LEFT ATRIUM. LEFT VENTRICULAR HYPERTROPHY. MILD MITRAL REGURGITATION. AORTIC SCLEROSIS WITH NO AORTIC STENOSIS OR AORTIC REGURGITATION. - Problems (1) Shortness of breath Current Visit: No Status: Acute (2) Anemia Onset Date: 04/24/17 Current Visit: No Status: Chronic Qualifiers: Anemia type: iron deficiency Iron deficiency anemia type: unspecified iron deficiency Qualified Code(s): D50.9 - Iron deficiency anemia, unspecified (3) Atrial fibrillation Onset Date: 03/26/16 Current Visit: No Status: Chronic Qualifiers: Atrial fibrillation type: chronic Qualified Code(s): I48.2 - Chronic atrial fibrillation (4) CAD (coronary artery disease) Onset Date: 10/04/14 Current Visit: No Status: Chronic Qualifiers: Coronary Disease-Associated Artery/Lesion type: [place] artery [place] vs. transplanted heart: [place] heart Associated angina: without angina Qualified Code(s): I25.10 - Atherosclerotic heart disease of [place] coronary artery without angina pectoris (5) COPD (chronic obstructive pulmonary disease) Onset Date: 10/04/14 Current Visit: No Status: Acute Qualifiers: COPD type: COPD with acute exacerbation Qualified Code(s): J44.1 - Chronic obstructive pulmonary disease with (acute) exacerbation (6) Chronic renal disease Onset Date: 04/24/17 Current Visit: No Status: Chronic Qualifiers: Chronic kidney disease stage: stage 4 (severe) Qualified Code(s): N18.4 - Chronic kidney disease, stage 4 (severe) (7) GERD (gastroesophageal reflux disease) Onset Date: 06/24/17 Current Visit: No Status: Chronic Qualifiers: Esophagitis presence: without esophagitis Qualified Code(s): K21.9 - Gastro -esophageal reflux disease without esophagitis (8) Gastroesophageal reflux disease Onset Date: 10/04/14 Current Visit: No Status: Chronic (9) History of cardiac pacemaker Onset Date: 04/24/17 Current Visit: No Status: Chronic (10) Hyperlipidemia Onset Date: 04/24/17 Current Visit: No Status: Chronic Qualifiers: Hyperlipidemia type: unspecified Qualified Code(s): E78.5 - Hyperlipidemia , unspecified (11) Hypertension Onset Date: 10/04/14 Current Visit: No Status: Chronic Qualifiers: Hypertension type: essential hypertension Qualified Code(s): I10 - Essential (primary) hypertension (12) Obstructive sleep apnea Onset Date: 04/24/17 Current Visit: No Status: Suspected Brief History of Present Illness: 87-year-old female presented to the emergency room with shortness of breath. Patient with multiple medical problems including CHF, COPD, atrial fibrillation, hypertension and CRD. Patient found to have COPD exacerbation. Patient admitted for treatment Hospital Course: During the course of her stay patient presented with COPD exacerbation. Patient was evaluated by pulmonology. Medications were adjusted. At discharge patient requested skilled placement go to a skilled placement facility to continue rehabilitation. At discharge she will continue with Brovana 1 unit dose twice daily. Patient with oxygen to maintain sats above 90%. Patient uses home oxygen. At discharge she will continue with prednisone 20 mg one pill twice daily for 5 days then one pill daily for 5 days. Recommendation is for the patient follow up with pulmonology in 1-2 weeks to follow up this hospitalization. Patient has Atrial fibrillation, CAD, and HTN. She will continue with medication -Plavix 75 mg daily, Coreg 25 mg one pill twice daily. and Losartan 100 mg daily. She will need to follow up with Cardiology as outpatient. Patient has CHF. This remains stable. She will continue with 1500 cc per day fluid restriction. She will continue with lasix 20 mg daily. This will need to be monitored as this may need adjustment. Patient has CRD. This will need monitoring. Recommend to recheck lab-BMP in one week. She will need to follow up with Nephrology as outpatient. Patient has anemia. She will continue with Iron daily. Recommend to recheck lab- CBC in one week. Vital Signs/Physical Exam: Temp Pulse Resp BP Pulse Ox 97.2 F 81 18 154/70 H 99 09/10/17 12:00 09/10/17 12:00 09/10/17 12:00 09/10/17 12:00 09/10/17 12:00 General: Alert, In no apparent distress, Oriented x3, Cooperative HEENT: Atraumatic Neck: Supple Respiratory: Clear to auscultation bilaterally, Normal air movement Cardiovascular: Normal pulses, Regular rate/rhythm Gastrointestinal: Normal bowel sounds, Soft and benign, Non-distended, No tenderness, No masses, No rebound, No guarding Musculoskeletal: No erythema, No tenderness, No warmth Integumentary: No tenderness/swelling, No erythema, No warmth, No cyanosis Neurological: Normal speech, Normal strength at 5/5 x4 extr, Normal tone, Normal affect Laboratory Data at Discharge: WBC 6.3 K/uL (4.3-10.9) 09/10/17 05:27 Hgb 8.1 g/dL (12.0-15.0) L 09/10/17 05:27 Hct 23.8 % (36.0-45.0) L 09/10/17 05:27 Plt Count 201 K/uL (152-406) 09/10/17 05:27 PT 12.0 SECONDS (9.5-12.5) 09/06/17 00:25 INR 1.02 09/06/17 00:25 APTT 25.7 SECONDS (24.3-36.9) 09/06/17 00:25 Sodium 138 mmol/L (136-145) 09/10/17 05:27 Potassium 4.2 mmol/L (3.5-5.1) 09/10/17 05:27 BUN 59 mg/dL (7-18) H 09/10/17 05:27 Creatinine 2.60 mg/dL (0.55-1.3) H 09/10/17 05:27 Glucose 173 mg/dL (74-106) H 09/10/17 05:27 Phosphorus 4.6 mg/dL (2.5-4.9) 09/07/17 11:11 Magnesium 2.8 mg/dL (1.8-2.4) H 09/07/17 11:11 Total Bilirubin 0.4 mg/dL (0.2-1.0) 09/10/17 05:27 AST 13 U/L (15-37) L 09/10/17 05:27 ALT 16 U/L (12-78) 09/10/17 05:27 Alkaline Phosphatase 45 U/L (45-117) 09/10/17 05:27 Troponin I 0.05 ng/mL (0.0-0.045) H 09/06/17 17:56 Triglycerides 103 mg/dL (<150) 09/07/17 05:26 Cholesterol 164 mg/dL (<200) 09/07/17 05:26 HDL Cholesterol 78 mg/dL (40-60) H 09/07/17 05:26 Cholesterol/HDL Ratio 2.10 09/07/17 05:26 Home Medications: Albuterol Sulfate [Ventolin Hfa] 2 puff IH QID PRN 09/06/17 Ascorbic Acid [Vitamin C] 250 mg PO DAILY 09/06/17 Carvedilol 25 mg PO BID 09/06/17 Clopidogrel Bisulfate [Plavix*] 75 mg PO DAILY 09/06/17 Ferrous Sulfate 325 mg PO DAILY 09/06/17 Losartan Potassium [Cozaar] 100 mg PO BEDTIME 09/06/17 Multivit,Ther Iron,Ca,FA & Min [Centrum Tablet*] 1 tab PO BEDTIME 09/06/17 Pantoprazole Sodium [Protonix] 40 mg PO DAILY 09/06/17 Pravastatin Sodium 80 mg PO DAILY 09/06/17 Arformoterol Tartrate [Brovana] 15 mcg NEB BIDRESP #60 vial.neb 09/10/17 Furosemide [Lasix*] 20 mg PO DAILY #30 tab 09/10/17 predniSONE [Prednisone*] 20 mg PO SEECOM #5 tab 09/10/17 New Medications: Arformoterol Tartrate [Brovana] 15 mcg NEB BIDRESP #60 vial.neb Furosemide [Lasix*] 20 mg PO DAILY #30 tab predniSONE [Prednisone*] 20 mg PO SEECOM #5 tab Patient Discharge Instructions: 1. Patient will go to SNF for rehab. 2. Patient presented with COPD exacerbation. Patient was evaluated by pulmonology. Medications were adjusted. At discharge patient requested skilled placement go to a skilled placement facility to continue rehabilitation. At discharge she will continue with Brovana 1 unit dose twice daily. She will continue with Proair TID as needed for SOB. Patient with oxygen to maintain sats above 90%. Patient uses home oxygen. At discharge she will continue with prednisone 20 mg one pill twice daily for 5 days then one pill daily for 5 days. Recommendation is for the patient follow up with pulmonology in 1-2 weeks to follow up this hospitalization. 3. Patient has Atrial fibrillation, CAD, and HTN. She will continue with medication-Plavix 75 mg daily, Coreg 25 mg one pill twice daily. and Losartan 100 mg daily. She will need to follow up with Cardiology as outpatient. 4. Patient has CHF. This remains stable. She will continue with 1500 cc per day fluid restriction. She will continue with lasix 20 mg daily. This will need to be monitored as this may need adjustment. 5. Patient has CRD. This will need monitoring. Recommend to recheck lab-BMP in one week. She will need to follow up with Nephrology as outpatient. 6. Patient has anemia. She will continue with Iron daily. Recommend to recheck lab-CBC in one week. 7. Patient has Hyperlipidemia. She will continue with her medication. 8. Patient with GERD. She will continue with medication. Diet: AHA Activity: Fall precautions Time spent managing pt's care (in minutes): 55
[2017-09-10] MEDS ORDERED: LEVALBUTEROL 0.63 MG/3 ML NEB NEB PRN (17:00)
== END 2017-09-10 19:04 | DRG 291 ==
LOC: ER 00:05 → ERHOLD 02:04 → 3RD-ICU 03:08 → 4TH 09-08 14:35
PROVIDERS: ADMIT Hospitalist; ATTEND Family Medicine
PROC: 5A09457 Assistance with Respiratory Ventilation, 24-96 Consecutive Hours, Continuous Positive Airway Pressure (ICD-10-PCS; principal; 2017-09-06)
DX: I13.0 Hypertensive heart and chronic kidney disease with heart failure and stage 1 through stage 4 chronic kidney disease, or unspecified chronic kidney disease (principal); J96.92 Respiratory failure, unspecified with hypercapnia; I50.33 Acute on chronic diastolic (congestive) heart failure; J44.1 Chronic obstructive pulmonary disease with (acute) exacerbation; N18.4 Chronic kidney disease, stage 4 (severe); N17.9 Acute kidney failure, unspecified; K21.9 Gastro-esophageal reflux disease without esophagitis; E78.5 Hyperlipidemia, unspecified; G47.33 Obstructive sleep apnea (adult) (pediatric); N18.3 Chronic kidney disease, stage 3 (moderate); D50.9 Iron deficiency anemia, unspecified; R74.8 Abnormal levels of other serum enzymes; I48.2 Chronic atrial fibrillation; I25.10 Atherosclerotic heart disease of native coronary artery without angina pectoris; Z99.81 Dependence on supplemental oxygen; Z88.0 Allergy status to penicillin; Z88.8 Allergy status to other drugs, medicaments and biological substances; Z88.1 Allergy status to other antibiotic agents; Z91.041 Radiographic dye allergy status; Z79.82 Long term (current) use of aspirin; Z95.0 Presence of cardiac pacemaker; Z95.5 Presence of coronary angioplasty implant and graft; Z95.820 Peripheral vascular angioplasty status with implants and grafts; Z91.19 Patient's noncompliance with other medical treatment and regimen
CPT/HCPCS: 36415; 71045; 80048; 80053; 80061; 80076; 82550; 82553; 82805; 83605; 83735; 83880; 84100; 84439; 84443; 84484; 85025; 85610; 85730; 93005; 93306; 94640; 94660; 94760; 97163; 99291; J0456; J1160; J1650; J1940; J2930; J3475; J7030; J7512; J7605

== ENCOUNTER 2017-10-15 12:20 | Inpatient (IN) | payer OTHER ==
[2017-10-15 12:51] LABS: Arterial Blood Carboxyhemoglob 1.5 % (0-1.5); Blood Gas Oxyhemoglobin 88.3 % (94-97); Blood O2 Saturation 90.5 % (92-98.5)
[2017-10-15 13:07] LABS: Absolute Lymphocytes (CBC) 0.5 K/uL (0.7-4.9); Absolute Monocytes 0.5 K/uL (0.1-1.3); Basophils % 0.4 % (0-1.3); Eosinophils % 0.9 % (0-4.4); Hematocrit 26.5 % (36.0-45.0); MCH 30.3 pg (27.0-35.0); MCV 93.1 fL (80-100); MPV 9.5 fL (7.6-11.3); Monocytes % 7.5 % (3.3-12.3); RBC Red Blood Cell Count 2.84 M/uL (3.86-4.86)
--- NOTE | 2017-10-15 13:09 | RAD REPORT ---
EXAM DESCRIPTION: RAD - Chest Single View - 10/15/2017 1:03 pm CLINICAL HISTORY: COPD Chest pain. COMPARISON: Chest Single View dated 09/07/2017; Chest Single View dated 09/06/2017; Chest Single View dated 08/14/2017; Chest Single View dated 06/26/2017 FINDINGS: Portable technique limits examination quality. Mild interstitial pulmonary edema is present. Small pleural effusions are noted. The heart is moderat romulo enlarged in size with a dual lead pacer device present. No displaced fractures.Aortic atheroscler osis. IMPRESSION: Mild CHF versus volume overload pattern.
[2017-10-15 13:18] LABS: Protime INR 1.02
--- NOTE | 2017-10-15 13:37 | EDPHYS ---
Physician Documentation [facility] Name: Bárbara Thakkar Age: 87 yrs Sex: Female : 1930 Arrival Date: 10/15/2017 Time: 12:21 Bed 7 Private MD: ED Physician Jesus Carter HPI: 10/15 13:03 This 87 yrs old Female presents to ER via EMS with complaints of Breathing snw Difficulty. 13:03 The patient has shortness of breath at rest. Onset: The symptoms/episode began/occurred snw suddenly, today. Duration: The symptoms are continuous. Associated signs and symptoms: Pertinent positives: non-productive cough. Severity of symptoms: At their worst the symptoms were moderate severe. The patient has experienced similar episodes in the past, multiple times. It is unknown whether or not the patient has recently seen a physician. Dr. Curiel and Dr. Canseco. Historical: - Allergies: 12:28 acetylcysteine; iw 12:28 Ciprofloxacin; iw 12:28 Iodinated Contrast Media - IV Dye; iw 12:28 PENICILLINS; iw - Home Meds: 12:28 hydralazine 25 mg Oral tab 1 tab 2 times per day [Active]; clopidogrel 75 mg oral tab 1 iw tab once daily [Active]; pantoprazole 40 mg oral TbEC 1 tab once daily [Active]; carvedilol 25 mg oral tab 1 tab 2 times per day [Active]; pravastatin 80 mg oral tab 1 tab once daily [Active]; Brovana 15 mcg/2 mL inhalation nebu 2 mL 2 times per day [Active]; - PMHx: 12:28 COPD; High Cholesterol; Hypertension; Pacemaker; iw - Ebola Screening: : Patient negative for fever greater than or equal to 101.5 degrees Fahrenheit, and additional compatible Ebola Virus Disease symptoms Patient denies exposure to infectious person Patient denies travel to an Ebola-affected area in the 21 days before illness onset No symptoms or risks identified at this time. ROS: 13:02 Eyes: Negative for injury, pain, redness, and discharge, ENT: Negative for injury, snw pain, and discharge, Neck: Negative for injury, pain, and swelling, Cardiovascular: Negative for chest pain, palpitations, and edema. 13:02 Abdomen/GI: Negative for abdominal pain, nausea, vomiting, diarrhea, and constipation, Back: Negative for injury and pain, : Negative for injury, bleeding, discharge, and swelling, MS/Extremity: Negative for injury and deformity, Skin: Negative for injury, rash, and discoloration, Neuro: Negative for headache, weakness, numbness, tingling, and seizure. 13:02 Constitutional: Positive for body aches, malaise. 13:02 Respiratory: Positive for cough, orthopnea, shortness of breath, at rest. Exam: 12:59 Head/Face: Normocephalic, atraumatic. Eyes: Pupils equal round and reactive to light, snw extra-ocular motions intact. Lids and lashes normal. Conjunctiva and sclera are non-icteric and not injected. Cornea within normal limits. Periorbital areas with no swelling, redness, or edema. ENT: Nares patent. No nasal discharge, no septal abnormalities noted. Tympanic membranes are normal and external auditory canals are clear. Oropharynx with no redness, swelling, or masses, exudates, or evidence of obstruction, uvula midline. Mucous membranes moist. Neck: Trachea midline, no thyromegaly or masses palpated, and no cervical lymphadenopathy. Supple, full range of motion without nuchal rigidity, or vertebral point tenderness. No Meningismus. Chest/axilla: Normal chest wall appearance and motion. Nontender with no deformity. No lesions are appreciated. Cardiovascular: Regular rate and rhythm with a normal S1 and S2. No gallops, murmurs, or rubs. Normal PMI, no JVD. No pulse deficits. + pedal edema 12:59 Abdomen/GI: Soft, non-tender, with normal bowel sounds. No distension or tympany. No guarding or rebound. No evidence of tenderness throughout. Back: No spinal tenderness. No costovertebral tenderness. Full range of motion. 12:59 MS/ Extremity: Pulses equal, no cyanosis. Neurovascular intact. Full, normal range of motion. Neuro: Awake and alert, GCS 15, oriented to person, place, time, and situation. Cranial nerves II-XII grossly intact. Motor strength 5/5 in all extremities. Sensory grossly intact. Cerebellar exam normal. Normal gait. 12:59 Constitutional: The patient appears alert, anxious, frail. 12:59 Respiratory: moderate respiratory distress is noted, severe repiratory distress is noted, Respirations: labored breathing, prolonged exhalation, intercostal retractions, shallow respirations, tachypnea, Breath sounds: bronchial sounds, that are moderate. 12:59 Skin: Appearance: Color: pale. Vital Signs: 12:28 BP 117 / 53; Pulse 62; Resp 22 S; Pulse Ox 100% on Nebulizer Mask; iw 12:30 Temp 98.5(TE); tw2 13:00 BP 93 / 58; Pulse 62; Resp 20; Pulse Ox 100% on BiPAP; tw2 13:30 BP 98 / 64; Pulse 70; Resp 20; Pulse Ox 92% on BiPAP; tw2 13:53 BP 102 / 58; Pulse 63; Resp 24; Pulse Ox 92% on BiPAP, 12/6 40% rate 12; tw2 14:50 BP 105 / 46; Pulse 62; Resp 17; Pulse Ox 98% on BiPAP; tw2 15:47 BP 115 / 48; Pulse 68; Resp 24; Pulse Ox 96% on BiPAP; tw2 19:41 BP 109 / 51; Pulse 71; Resp 23; Pulse Ox 96% on 40% BiPAP; bb MDM: 12:31 Patient medically screened. snw 13:36 Data reviewed: vital signs, nurses notes. Data interpreted: Pulse oximetry: on room air snw is 100 %. Interpretation: normal. 10/15 12:37 Order name: Basic Metabolic Panel; Complete Time: 13:52 snw 10/15 12:37 Order name: CBC with Diff; Complete Time: 13:12 snw 10/15 12:37 Order name: Ckmb; Complete Time: 13:52 snw 10/15 12:37 Order name: CPK; Complete Time: 13:52 snw 10/15 12:37 Order name: LFT's; Complete Time: 13:52 snw 10/15 12:37 Order name: Magnesium; Complete Time: 13:52 snw 10/15 12:37 Order name: NT PRO-BNP; Complete Time: 13:52 snw 10/15 12:37 Order name: PT-INR; Complete Time: 13:25 snw 10/15 12:37 Order name: Ptt, Activated; Complete Time: 13:25 snw 10/15 12:37 Order name: Troponin (emerg Dept Use Only); Complete Time: 13:32 snw 10/15 12:37 Order name: ABG; Complete Time: 13:04 [facility] 10/15 12:38 Order name: Blood Culture* [facility] 10/15 12:51 Order name: TS; Complete Time: 15:08 [facility] 10/15 13:34 Order name: Urine Culture [facility] 10/15 12:37 Order name: XRAY Chest (1 view); Complete Time: 13:12 w 10/15 12:37 Order name: EKG; Complete Time: 12:38 [facility] 10/15 12:37 Order name: Cardiac monitoring; Complete Time: 12:40 [facility] 10/15 12:37 Order name: EKG - Nurse/Tech; Complete Time: 12:40 w 10/15 12:37 Order name: IV Saline Lock; Complete Time: 12:58 [facility] 10/15 12:37 Order name: Labs collected and sent; Complete Time: 12:58 [facility] 10/15 12:37 Order name: O2 Per Protocol; Complete Time: 12:40 [facility] 10/15 12:37 Order name: O2 Sat Monitoring; Complete Time: 12:40 [facility] 10/15 12:37 Order name: Urine Dipstick-Ancillary (obtain specimen); Complete Time: 15:45 [facility] 10/15 12:37 Order name: BIPAP [facility] 10/15 13:34 Order name: Murdock; Complete Time: 13:51 [facility] 10/15 13:34 Order name: Urine Microscopic Only; Complete Time: 16:07 [facility] 10/15 15:40 Order name: Urine Dipstick--Ancillary (enter results) 10/15 15:41 Order name: Urine Dipstick-Ancillary; Complete Time: 16:06 EDMS Administered Medications: 13:50 Drug: Lasix 20 mg Route: IVP; Site: left antecubital; tw2 15:44 Follow up: Response: No adverse reaction tw2 Disposition: 10/15/17 13:36 Hospitalization ordered by Jordi Francisco for Inpatient Admission. Preliminary diagnosis are Unspecified systolic (congestive) heart failure, Chronic obstructive pulmonary disease, unspecified. - Bed requested for Telemetry/MedSurg (Inpatient). - Status is Inpatient Admission. ak1 - Condition is Stable. - Problem is an acute exacerbation. - Symptoms have worsened. UTI on Admission? No Addendum: 10/17/2017 10:47 Co-signature as Attending Physician, Jesus Carter MD I agree with the assessment and k dr plan of care. Signatures: Dispatcher [employer] EDMS Jesus Carter MD MD [facility] Estela Acuna, GENERAL ACTIVITIES THERAPIST-C GENERAL ACTIVITIES THERAPIST-Csnw Argenis Lentz, RN RN iw Lorena Manuel, RN RN ak1 Audrey Voss, RN RN tw2 Corrections: (The following items were deleted from the chart) 10/15 16:11 13:36 Hospitalization Ordered by Jordi Francisco MD for Inpatient Admission. Preliminary iw diagnosis is Unspecified systolic (congestive) heart failure; Chronic obstructive pulmonary disease, unspecified. Bed requested for Telemetry/MedSurg (Inpatient). Status is Inpatient Admission. Condition is Stable. Problem is an acute exacerbation. Symptoms have worsened. UTI on Admission? No. snw 18:15 16:11 10/15/2017 13:36 Hospitalization Ordered by Jordi Francisco MD for Inpatient iw Admission. Preliminary diagnosis is Unspecified systolic (congestive) heart failure; Chronic obstructive pulmonary disease, unspecified. Bed requested for [facility] ER HOLD. Status is Inpatient Admission. Condition is Stable. Problem is an acute exacerbation. Symptoms have worsened. UTI on Admission? No. iw 20:41 18:15 10/15/2017 13:36 Hospitalization Ordered by Jordi Francisco MD for Inpatient ak1 Admission. Preliminary diagnosis is Unspecified systolic (congestive) heart failure; Chronic obstructive pulmonary disease, unspecified. Bed requested for Telemetry/MedSurg (Inpatient). Status is Inpatient Admission. Condition is Stable. Problem is an acute exacerbation. Symptoms have worsened. UTI on Admission? No. iw
--- NOTE | 2017-10-15 13:37 | ER ---
Nurse's Notes [facility] Name: Bárbara Thakkar Age: 87 yrs Sex: Female : 1930 Arrival Date: 10/15/2017 Time: 12:21 Bed 7 Private MD: Diagnosis: Unspecified systolic (congestive) heart failure;Chronic obstructive pulmonary disease, unspecified Presentation: 10/15 12:21 Presenting complaint: EMS states: pt was discharged from [place] today after being in rehab for 102 weeks, hx of COPD, went to go to bathroom, got very SOB, was lowered to floor by her son, EMS arrived to scene and pt was in low 90s on home O2, was taken of oxygen while being switched over to NRB and pt became cyanotic and slumped over, symptoms improved after being on NRB, pt arrives to ER, A\T\OX3, 100% on neb treatment, skin is pale. Transition of care: patient was not received from another setting of care. Onset of symptoms was October 15, 2017. Risk Assessment: Do you want to hurt yourself or someone else? Patient reports no desire to harm self or others. Initial Sepsis Screen: Does the patient meet any 2 criteria? No. Patient's initial sepsis screen is negative. Does the patient have a suspected source of infection? No. Patient's initial sepsis screen is negative. Care prior to arrival: Medication(s) given: Albuterol Neb x 1, Atrovent Neb x 1, IV initiated. 20 GA, in the right antecubital area, Glucose check: 242 Oxygen administered. via a nebulizer mask, via a non-rebreather mask. 12:21 Method Of Arrival: EMS: [facility] iw 12:21 Acuity: CECE 2 iw 19:57 Note report called to Bryanna ARCOS. bb Historical: - Allergies: 12:28 acetylcysteine; iw 12:28 Ciprofloxacin; iw 12:28 Iodinated Contrast Media - IV Dye; iw 12:28 PENICILLINS; iw - Home Meds: 12:28 hydralazine 25 mg Oral tab 1 tab 2 times per day [Active]; clopidogrel 75 mg oral tab 1 iw tab once daily [Active]; pantoprazole 40 mg oral TbEC 1 tab once daily [Active]; carvedilol 25 mg oral tab 1 tab 2 times per day [Active]; pravastatin 80 mg oral tab 1 tab once daily [Active]; Brovana 15 mcg/2 mL inhalation nebu 2 mL 2 times per day [Active]; - PMHx: 12:28 COPD; High Cholesterol; Hypertension; Pacemaker; iw - Ebola Screening: : Patient negative for fever greater than or equal to 101.5 degrees Fahrenheit, and additional compatible Ebola Virus Disease symptoms Patient denies exposure to infectious person Patient denies travel to an Ebola-affected area in the 21 days before illness onset No symptoms or risks identified at this time. Screenin:29 Abuse screen: Denies threats or abuse. Denies injuries from another. Nutritional iw screening: No deficits noted. Tuberculosis screening: No symptoms or risk factors identified. Fall Risk IV access (20 points). Assessment: 13:55 Reassessment: Patient appears in no apparent distress at this time. Patient and/or tw2 family updated on plan of care and expected duration. Pain level reassessed. Patient is alert, oriented x 3, equal unlabored respirations, skin warm/dry/pink. 19:40 Reassessment: pt appears to be sleeping, eyes closed, Bipap in place pt arouses easily, bb IV sites intact. Vital Signs: 12:28 BP 117 / 53; Pulse 62; Resp 22 S; Pulse Ox 100% on Nebulizer Mask; iw 12:30 Temp 98.5(TE); tw2 13:00 BP 93 / 58; Pulse 62; Resp 20; Pulse Ox 100% on BiPAP; tw2 13:30 BP 98 / 64; Pulse 70; Resp 20; Pulse Ox 92% on BiPAP; tw2 13:53 BP 102 / 58; Pulse 63; Resp 24; Pulse Ox 92% on BiPAP, 12/6 40% rate 12; tw2 14:50 BP 105 / 46; Pulse 62; Resp 17; Pulse Ox 98% on BiPAP; tw2 15:47 BP 115 / 48; Pulse 68; Resp 24; Pulse Ox 96% on BiPAP; tw2 19:41 BP 109 / 51; Pulse 71; Resp 23; Pulse Ox 96% on 40% BiPAP; bb ED Course: 12:21 Patient arrived in ED. iw 12:25 Triage completed. iw 12:25 Bed in low position. Call light in reach. Side rails up X2. satellite project site monitor on. Pulse tw2 ox on. NIBP on. 12:28 Arm band placed on. iw 12:31 Audrey Voss, RN is Primary Nurse. tw2 12:31 Estela Acuna FNP-C is [facility]. snw 12:31 Jesus Carter MD is Attending Physician. snw 12:40 BIPAP Sent. tw2 12:50 Inserted saline lock: 22 gauge in left antecubital area, using aseptic technique. Blood tw2 collected. Maintain EMS IV. Dressing intact. Good blood return noted. Site clean \T\ dry. Gauge \T\ site: 20G RIGHT AC. 13:03 X-ray completed. Portable x-ray completed in exam room. Patient tolerated procedure jb2 well. 13:04 XRAY Chest (1 view) In Process Unspecified. EDMS 13:23 EKG done, by computer system technician. reviewed by Estela CONDON. at1 13:35 Jordi Francisco MD is Hospitalizing Provider. snw 13:36 TS Sent. tw2 13:45 Murdock cath inserted, using sterile technique, 16 Fr., by id, balloon inflated, to tw2 gravity drainage, urine specimen collected. Patient tolerated well. 15:44 Urine Dipstick--Ancillary (enter results) Sent. tw2 19:30 Primary Nurse role handed off by Audrey Voss, JOSSELYN ak1 Administered Medications: 13:50 Drug: Lasix 20 mg Route: IVP; Site: left antecubital; tw2 15:44 Follow up: Response: No adverse reaction tw2 Outcome: 13:36 Decision to Hospitalize by Provider. snw 20:06 Admitted to [facility] via stretcher, room 413 with respiratory, with oxygen, with chart, bb Report called to Bryanna ARCOS 20:41 Patient left the ED. ak1 Signatures: Dispatcher [employer] EDMS Estela Acuna FNP-C PARK INTERPRETER-Csnw Tigre Abbott jb2 Funmilayo Simpson RN RN bb Argenis Lentz RN RN iw Rona Elizalde, occupational rehabilitation aide EKG Tat1 Lorena Manuel RN RN ak1 Audrey Voss, RN RN tw2 Corrections: (The following items were deleted from the chart) 12:28 12:21 Presenting complaint: EMS states: pt was discharged from [place] today after iw being in rehab for 102 weeks, went to go to bathroom, got very SOB, was lowered to floor by her son, EMS arrived to scene and pt was in low 90s on home O2, was taken of oxygen while being switched over to NRB and pt became cyanotic and slumped over, symptoms improved after being on NRB, pt arrives to ER, A\T\OX3, 100% on neb treatment, skin is pale iw
[2017-10-15] MEDS ORDERED: FUROSEMIDE 20 MG/ 2ML VIAL ONE (13:44)
[2017-10-15 13:47] LABS: Albumin 3.1 g/dL (3.4-5.0); Bilirubin Direct 0.2 mg/dL (0-0.2); Bilirubin Total 0.4 mg/dL (0.2-1.0); CKMB Creatine Kinase MB 2.5 ng/mL (0.3-3.6); Magnesium 2.1 mg/dL (1.8-2.4); Potassium 4.7 mmol/L (3.5-5.1); Protein, Total 5.4 g/dL (6.4-8.2)
[2017-10-15 15:41] LABS: Urine Blood TRACE (NEG); Urine Glucose NEGATIVE (NEG); Urine Protein 2+ (NEG); Urine Specific Gravity 1.015 (1.005-1.030)
[2017-10-15 16:06] LABS: Urine Amorphous Sediment 3+ /HPF (NONE SEEN); Urine Bacteria <20 /HPF (<20); Urine Culture Reflex Order NOT NEEDED; Urine RBC <5 /HPF (NONE SEEN)
--- NOTE | 2017-10-15 17:01 | P.HP ---
Certification for Inpatient Patient admitted to: Inpatient With expected LOS: >2 Midnights Practitioner: I am a practitioner with admitting privileges, knowledge of patient current condition, hospital course, and medical plan of care. Services: Services provided to patient in accordance with Admission requirements found in Title 42 Section 412.3 of the Code of Federal Regulations Patient History Date of Service: 10/15/17 Reason for admission: Acute respiratory failure History of Present Illness: Ms. Thakkar 87-year-old woman with history of multiple medical problems including COPD, hypertension, dyslipidemia, pacemaker placement which has discharged today from a [place] [facility] facility. Her son states that the patient went to the bathroom, she becomes very short of breath and dizzy, at point that patient had lay on the floor. When EMT arrived, her O2 sat was 90% on room air. She was placed and on non-rebreather mask, and her O2 sats improve. No history of fever or chills, no cough or chest pain. At arrival the patient was place on a BiPAP. Lab work was remarkable for normal WBC count, significantly elevation of BNP. Chest x-ray remarkable for bilateral infiltrate consistent with CHF. Allergies acetylcysteine [From Mucomyst] Allergy (Mild, Verified 09/06/17 04:01) Shortness of breath Iodinated Contrast- Oral and IV Dye Allergy (Verified 09/06/17 04:01) Itching/Hives/Rash ciprofloxacin Adverse Reaction (Mild, Verified 09/06/17 04:01) muscle spasm Penicillins Adverse Reaction (Mild, Verified 09/06/17 04:01) Itching Home medications list reviewed: Yes Home Medications: Albuterol Sulfate [Ventolin Hfa] 2 puff IH QID PRN 09/06/17 Ascorbic Acid [Vitamin C] 250 mg PO DAILY 09/06/17 Carvedilol 25 mg PO BID 09/06/17 Clopidogrel Bisulfate [Plavix*] 75 mg PO DAILY 09/06/17 Ferrous Sulfate 325 mg PO DAILY 09/06/17 Losartan Potassium [Cozaar] 100 mg PO BEDTIME 09/06/17 Multivit,Ther Iron,Ca,FA & Min [Centrum Tablet*] 1 tab PO BEDTIME 09/06/17 Pantoprazole Sodium [Protonix] 40 mg PO DAILY 09/06/17 Pravastatin Sodium 80 mg PO DAILY 09/06/17 Arformoterol Tartrate [Brovana] 15 mcg NEB BIDRESP #60 vial.neb 09/10/17 Furosemide [Lasix*] 20 mg PO DAILY #30 tab 09/10/17 predniSONE [Prednisone*] 20 mg PO SEECOM #5 tab 09/10/17 - Past Medical/Surgical History Has patient received pneumonia vaccine in the past: Yes Diabetic: No -: COPD, Oxygen dependent -: HTN -: Atrial fibrillation, Pacemaker -: GERD -: Chronic anemia -: CAD -: PVD -: Carotid arterial disease -: Hyperlipidemia -: Permanent Pacemaker to upper rt chest-Sep [address] Narvaez -: Cornary stents -: kidney stents and stents to ea leg -: Bilateral lens implants -: Bilateral carpal tunnel repair -: Hysterectomy -: Appendectomy -: Tonsillectomy Psychosocial/ Personal History: She is - Family History Mother -: Heart disease, Diabetes Notes: of [place] Sister -: Diabetes - Social History Smoking Status: Never smoker Alcohol use: No CD- Drugs: No Caffeine use: No Place of Residence: Home Review of Systems 10-point ROS is otherwise unremarkable Physical Examination - Vital Signs Temperature: 98.5 F Blood Pressure: 122/55 Pulse: 65 Respirations: 17 Pulse Ox (%): 99 - Physical Exam General: Alert, In no apparent distress HEENT: Atraumatic, PERRLA, Mucous membr. moist/pink, EOMI, Sclerae nonicteric Neck: Supple, 2+ carotid pulse no bruit, No LAD, JVD distended Respiratory: Diminished, Crackles/rales (Bibasilar rales) Cardiovascular: Regular rate/rhythm, Normal S1 S2 Gastrointestinal: Normal bowel sounds, No tenderness Musculoskeletal: No tenderness Integumentary: No rashes Neurological: Normal speech, Normal tone, Normal affect Lymphatics: No axilla or inguinal lymphadenopathy - Studies Laboratory Data (last 24 hrs) 10/15/17 12:40: PT 12.0, INR 1.02, APTT 24.0 L 10/15/17 12:40: WBC 6.1 D, Hgb 8.6 L, Hct 26.5 L, Plt Count 194 10/15/17 12:40: Sodium 129 L, Potassium 4.7, BUN 25 H, Creatinine 3.60 H, Glucose 176 H, Magnesium 2.1 D, Total Bilirubin 0.4, AST 18, ALT 15, Alkaline Phosphatase 61 Assessment and Plan - Problems (Diagnosis) (1) Combined systolic and diastolic heart failure, acute Current Visit: Yes Status: Acute (2) Acute respiratory failure Onset Date: 04/24/17 Current Visit: No Status: Acute Qualifiers: Respiratory failure complication: hypoxia Qualified Code(s): J96.01 - Acute respiratory failure with hypoxia (3) Anemia, chronic disease Onset Date: 06/24/17 Current Visit: No Status: Acute (4) COPD (chronic obstructive pulmonary disease) Onset Date: 10/04/14 Current Visit: No Status: Acute Qualifiers: COPD type: COPD with acute exacerbation Qualified Code(s): J44.1 - Chronic obstructive pulmonary disease with (acute) exacerbation (5) Hypertension, essential Onset Date: 06/24/17 Current Visit: No Status: Chronic (6) Status post placement of cardiac pacemaker Onset Date: 03/26/16 Current Visit: No Status: Chronic (7) Obstructive sleep apnea Onset Date: 04/24/17 Current Visit: No Status: Suspected - Plan Patient will be admitted to the hospital due to acute respiratory failure wound secondary to acute on chronic combined systolic and diastolic CHF. Will order is treated with IV Lasix, strict control of in and out, no restriction about 1500 mL per day. Her last echocardiogram was done in August of 2017 showing mild LV dysfunction with an EF about 41%. Will consult Cardiology team for evaluation recommendation. - Advance Directives Does patient have a Living Will: No Does patient have a Durable POA for Healthcare: No - Code Status/Comfort Care Code Status Assessed: Yes Code Status: Full Code
[2017-10-15] MEDS ORDERED: ALBUTEROL 2.5 MG/3 ML NEB SOL NEB PRN (21:27)
[2017-10-15] MEDS ORDERED: IPRATROPIUM BROM 0.5MG/2.5ML NEB PRN (21:27)
[2017-10-15] MEDS ORDERED: ACETAMINOPHEN 500 MG TAB PO PRN (21:27)
[2017-10-15] MEDS ORDERED: ONDANSETRON 4 MG/2 ML VIAL IV PRN (21:27)
[2017-10-15] MEDS: FUROSEMIDE 40 MG/4 ML VIAL IV SCH (22:45)
[2017-10-16 07:08] LABS: Absolute Lymphocytes (CBC) 0.7 K/uL (0.7-4.9); Absolute Monocytes 0.5 K/uL (0.1-1.3); Absolute Neutrophil 2.9 K/uL (1.8-8.0); Basophils % 0.8 % (0-1.3); Eosinophils % 1.2 % (0-4.4); Hematocrit 25.7 % (36.0-45.0); Lymphocytes % 15.9 % (15.3-44.8); MCH 30.1 pg (27.0-35.0); MCV 90.7 fL (80-100); MPV 9.8 fL (7.6-11.3); Monocytes % 12.7 % (3.3-12.3); RBC Red Blood Cell Count 2.83 M/uL (3.86-4.86)
[2017-10-16 07:13] LABS: Potassium 4.2 mmol/L (3.5-5.1)
[2017-10-16] MEDS: FUROSEMIDE 40 MG/4 ML VIAL IV SCH ×3 (09:07→23:52)
[2017-10-16] MEDS: CLOPIDOGREL 75 MG TABLET PO SCH (09:07)
[2017-10-16 09:26] LABS: Uric Acid 6.5 mg/dL (2.6-6.0)
--- NOTE | 2017-10-16 10:18 | RAD REPORT ---
EXAM DESCRIPTION: US - Renal Ultrasound-Complete - 10/16/2017 10:11 am CLINICAL HISTORY: acute vs chronic KD<Reason For Exam>acute vs chronic KD COMPARISON: Renal Ultrasound-Complete dated 04/24/2017<Comparisons> FINDINGS: The right kidney measures 10.3 x 5.1 x 4.8 cm. The left kidney measures 8.6 x 3.9 x 4.7 c m.. Renal cortical thickness is normal. Echogenicity is increased in both kidneys indicating underlyi ng medical renal disease. Size asymmetry is not new but is more pronounced on the current examination compared to April. This is favored to be due to differences in measuring technique rather than true change in the kidneys. No hydronephrosis or suspicious renal mass. Patient has bilateral renal cysts up to 4 cm in size. Th bjorn have benign imaging characteristics and there is no clear change in size or imaging characteristi cs since April. Bladder assessment was limited. No gross abnormality. IMPRESSION: No hydronephrosis or suspicious renal mass. Bilateral renal cysts showing benign characteristics and no change from April 2017. Medical renal disease is evident. No significant cortical thinning.
[2017-10-16] MEDS: ASCORBIC ACID 500 MG TABLET PO SCH (15:12)
[2017-10-16] MEDS: FERROUS SULFATE 325 MG TAB PO SCH (15:12)
[2017-10-16] MEDS: PANTOPRAZOLE 40MG TABLET PO SCH (15:13)
--- NOTE | 2017-10-16 16:10 | P.PN ---
Subjective Date of Service: 10/16/17 Chief Complaint: Acute respiratory failure Patient seen and examined at bedside with RN. Chart reviewed. Case discussed with cardiology and nephrology at this time. -overnight patient has no complaints to offer. -this morning patient states that she feels much better than before however still complains of having dyspnea -diuresing adequately Review of Systems 10-point ROS is otherwise unremarkable General: As per HPI Physical Examination - Vital Signs Temperature: 98.3 F Blood Pressure: 109/63 Pulse: 80 Respirations: 22 Pulse Ox (%): 93 - Physical Exam General: Alert, In no apparent distress, Oriented x3 HEENT: Atraumatic, PERRLA, EOMI Neck: Supple, JVD not distended Respiratory: Normal air movement, Crackles/rales Cardiovascular: Regular rate/rhythm, Normal S1 S2 Gastrointestinal: Normal bowel sounds, No tenderness Musculoskeletal: No tenderness Integumentary: No rashes Neurological: Normal speech, Normal tone, Normal affect Lymphatics: No axilla or inguinal lymphadenopathy - Studies Medications List Reviewed: Yes Assessment And Plan - Current Problems (Diagnosis) (1) Chronic renal disease Onset Date: 04/24/17 Current Visit: No Status: Chronic Plan: Acute on Chronic KD -BUN.CR elevated -Nephrology Consulted. appreciate Reccs -IV lasix and spirinolactone Qualifiers: Chronic kidney disease stage: stage 4 (severe) Qualified Code(s): N18.4 - Chronic kidney disease, stage 4 (severe) (2) Combined systolic and diastolic heart failure, acute Current Visit: Yes Status: Acute Plan: Acute on Chronic CHF -Lasix IV BID for now -Spironolactone -Fluid restriction -Strict I&O (3) COPD (chronic obstructive pulmonary disease) Onset Date: 10/04/14 Current Visit: No Status: Chronic Qualifiers: COPD type: COPD with acute exacerbation Qualified Code(s): J44.1 - Chronic obstructive pulmonary disease with (acute) exacerbation (4) Afib Onset Date: 10/04/14 Current Visit: No Status: Chronic Qualifiers: Atrial fibrillation type: chronic Qualified Code(s): I48.2 - Chronic atrial fibrillation (5) CAD (coronary artery disease) Onset Date: 10/04/14 Current Visit: No Status: Chronic Qualifiers: Coronary Disease-Associated Artery/Lesion type: [place] artery [place] vs. transplanted heart: [place] heart Associated angina: without angina Qualified Code(s): I25.10 - Atherosclerotic heart disease of [place] coronary artery without angina pectoris (6) GERD (gastroesophageal reflux disease) Onset Date: 06/24/17 Current Visit: No Status: Chronic Qualifiers: Esophagitis presence: without esophagitis Qualified Code(s): K21.9 - Gastro -esophageal reflux disease without esophagitis (7) History of cardiac pacemaker Onset Date: 04/24/17 Current Visit: No Status: Chronic (8) Hyperlipidemia Onset Date: 04/24/17 Current Visit: No Status: Chronic Qualifiers: Hyperlipidemia type: unspecified Qualified Code(s): E78.5 - Hyperlipidemia , unspecified (9) Hypertension Onset Date: 10/04/14 Current Visit: No Status: Chronic Qualifiers: Hypertension type: essential hypertension Qualified Code(s): I10 - Essential (primary) hypertension - Plan Currently awaiting clinical improvement at this time. Patient still does appear to be volume overloaded. After talking to nephrology at this time patient is to be observed closely with her creatinine. If there is no improvement after patient is adequately diuresis nephrology might consider possible dialysis however given her age and other comorbid condition her quality of life will not be good once the patient is started on dialysis. At this time will continue the Lasix and hopefully diuresed patient adequately where her creatinine does improve. Discharge Plan: Home Plan to discharge in: 48 Hours - Code Status/Comfort Care Code Status Assessed: Yes Critical Care: No
--- NOTE | 2017-10-16 16:21 | EKG ---
Test Date: 2017-10-15 Test Time: 13:14:03 Shaker Washer: EPIFANIO/S MEASUREMENT RESULTS: Intervals: Rate: 63 [place]: QRSD: 126 QT: 436 QTc: 446 [place]: P: [place]: QRS: -9 T: 217 INTERPRETIVE STATEMENTS: Wide QRS rhythm Nonspecific intraventricular block T wave abnormality, consider inferolateral ischemia Abnormal ECG Compared to ECG 09/06/2017 20:47:21 Uncertain supraventricular rhythm now present T-wave abnormality now present Possible ischemia now present Atrial fibrillation no longer present Left bundle-branch block no longer present Electronically Signed On 10-16-17 16:15:03 CDT by Andrea Rao
[2017-10-16] MEDS: ARFORMOTEROL TARTRATE 15 MCG/2 ML VIAL.NEB NEB SCH (20:40)
[2017-10-16] MEDS: ATORVASTATIN 10 MG TAB PO SCH (21:19)
[2017-10-16] MEDS: CARVEDILOL 25 MG TAB PO SCH (21:20)
[2017-10-16] MEDS: MULTIVITAMIN TAB PO SCH (21:20)
--- NOTE | 2017-10-17 01:41 | CON ---
Date of Consultation: 10/16/2017 Reason Of Consultation: Elevated BUN and creatinine, fluid management. History Of Present Illness: This is a pleasant 87-year-old female with significant past medical hist ory of hypertension, coronary artery disease complicated with congestive heart failure with diastolic dysfunction; atrial fibrillation, status post ICD; COPD, oxygen dependent; chronic kidney disease, b aseline creatinine 2.4, GFR of 19. The patient was in her regular state of health. Apparently, rece ntly she was in the half-way and she was discharged from the half-way. Found to be weak, can not ambulate. For that reason, she was brought to the hospital. Found to be over volume with elevat ed BUN and creatinine. For that reason, we have been consulted. The patient denied taking any nonst eroidal, no IV contrast. Over the night, we started the patient on diuresis. Past Medical History: Includes, 1.Hypertension. 2.Coronary artery disease, status post ICD, complicated with congestive heart failure with diastolic dysfunction, ejection fraction of 40%. 3.Chronic kidney disease. Baseline creatinine is 2.2, GFR of 19 back in August 2017. 4.COPD, on home oxygen. 5.Anemia. 6.Peripheral vascular disease, status post PTCA. Past Surgical History: Includes, 1.PTCA. 2.ICD. 3.Carpal tunnel. 4.Hysterectomy. 5.Appendectomy. 6.Tonsillectomy. Family History: Positive for coronary artery disease, hypertension, and diabetes. Social History: Ex-smoker. Denied alcohol. Denied drugs of abuse. Review of Systems: Head and Neck: No red eye. No ear pain. GI: No nausea, no vomiting. : No polyuria, no dysuria, no hematuria. [employer]ER: No vaginal discharge. Respiratory: Has shortness of breath. Has orthopnea. Cardiovascular: Has orthopnea. Endocrine: No polydipsia. Skin: No rash. Neuro: Has weakness, difficulty ambulating. Physical Examination: Vital Signs: When I saw the patient, blood pressure 144/67, pulse of 88, afebrile. Chest: Crackles bilateral. Heart: S1, S2. Systolic murmur. Abdomen: Soft, nontender. Extremities: Trace edema. Neurological: Alert and oriented, nonfocal. Laboratory Data: Sodium 134, potassium 4.2, bicarb 26, BUN 29, creatinine 3.6, GFR of 12. Uric acid 6.5, CK of 40, PTH of 57. WBC 4.2, H and H 8.5/25.7. Protein/creatinine 1.5. Chest x-ray, cardiom egaly. Renal ultrasound, 10.3 x 8.6 bilateral renal cysts. Assessment And Plan: 1.Acute kidney injury on chronic kidney disease, advanced, secondary to cardiorenal, nonoliguric, ov er volume. Normal size kidney with component of chronic kidney disease secondary to polycystic kidne y disease. I again will aggressively diurese the patient, try to establish better volume control, an d we will follow up. I am going to increase the Lasix to be every 8 hours and we will follow up. 2.Hypertension. We will utilize the blood pressure for more diuresis. 3.Chronic kidney disease with acute kidney injury as above. I had long discussion with the patient that if kidney function did not improve or we could not establish better volume control, patient may need renal replacement therapy. The patient did not like that idea. Give her age, I totally agree w ith that, we will try to manage conservatively. We will follow up. 4.Congestive heart failure with congestive heart failure exacerbation as above. Continue diuresis. Thank you Dr. Cueto for allowing us to participate in the care of your patient. SID Voice ID: [id number] Report ID: [id number]
[2017-10-17 04:54] VITALS: BMI 25.9
[2017-10-17 06:17] LABS: Magnesium 1.7 mg/dL (1.8-2.4)
[2017-10-17] MEDS: FUROSEMIDE 40 MG/4 ML VIAL IV SCH ×3 (06:29→21:57)
--- NOTE | 2017-10-17 06:50 | CON ---
Date of Consultation: 10/16/2017 Reason For Consultation: Congestive heart failure. History Of Present Illness: Ms. Thakkar is an 87-year-old white woman. She normally sees Dr. Galan . She has a history of diabetes, pacemaker placement, anemia, gastroesophageal reflux disease, COPD, chronic systolic congestive heart failure, hypertension, and dyslipidemia. She recently had her pac emaker checked by Dr. Galan. In August of 2017, an echocardiogram showed an ejection fraction of 41% . She came in with shortness of breath. X-ray shows congestive heart failure. Probably has some [place] PD exacerbation as well. Denied any chest pain. Denied any palpitation or syncope. Denied any feve r or chills or cough. Allergies: SHE IS ALLERGIC TO IODINE, PENICILLIN, CIPROFLOXACIN, AND MUCOMYST. Review of Systems: Negative. Social History: Negative. Family History: Negative. Medications: At home include inhalers, Coreg, iron, Lasix, Plavix, losartan, Protonix, Pravachol, an d prednisone. Physical Examination: General: She is pleasant, feeling much better, slightly short of breath. Vital Signs: Stable, afebrile, sinus rhythm. HEENT: Negative. Neck: Supple. No bruit, JVD, thyromegaly, or lymphadenopathy. Chest: Revealed some expiratory wheezing at the bases, but no rales. Cardiac: Examination revealed a regular rhythm and rate without any murmurs, gallops, or rubs. Abdomen: Benign. Extremities: Revealed no edema, clubbing, or cyanosis. Diagnostic Data: Her pO2 was 56, pCO2 was 58, with a pH of 7.31. Her creatinine was 3.6. Her hemog lobin was 8.6. Her troponin was 0.06. Her BNP showed 33,754. Impression And Plan: 1.Acute exacerbation of chronic systolic congestive heart failure. 2.Renal insufficiency stage 4. 3.Anemia. 4.Elevated troponin and BNP secondary to congestive heart failure. 5.Chronic obstructive pulmonary disease with CO2 retention. 6.Status post pacemaker placement. 7.Hypertension. 8.Dyslipidemia. 9.Gastroesophageal reflux disease. Mrs. Thakkar has improved on IV Lasix and inhalers treatment and prednisone. Her last echocardiogram was only a month ago showing ejection fraction of 41%, and I would not repeat that. She has not had any chest pain. I certainly would not do any stress test on her. I will continue the Lasix, and her home medications except for losartan. I think this needs to be held with her creatinine at 3.6. [place], Nephrology has been consulted, and she will be seeing Dr. Sheldon today. We will watch her I's and O's and daily weight. I believe she has an appointment coming up with Dr. Galan in the [facility]. Her pacemaker has been recently checked by Dr. Galan. It seems to be functioning properly. I will continue to follow Ms. Thakkar, but soon she can go home whenever it is okay with Dr. Aníbal LOUIS/ADITI Voice ID: [id number] Report ID: [id number]
[2017-10-17] MEDS ORDERED: MAGNESIUM SULFATE 1 gm IVPB 1 GM/100 ML BAG IV ONE (07:30)
[2017-10-17] MEDS: ARFORMOTEROL TARTRATE 15 MCG/2 ML VIAL.NEB NEB SCH ×2 (08:34→20:17)
[2017-10-17] MEDS: ASCORBIC ACID 500 MG TABLET PO SCH (09:20)
[2017-10-17] MEDS: FERROUS SULFATE 325 MG TAB PO SCH (09:20)
[2017-10-17] MEDS: CARVEDILOL 25 MG TAB PO SCH ×2 (09:21→21:00)
[2017-10-17] MEDS: PANTOPRAZOLE 40MG TABLET PO SCH (09:21)
[2017-10-17] MEDS: CLOPIDOGREL 75 MG TABLET PO SCH (09:21)
[2017-10-17 13:30] LABS: Urine Appearance CLEAR; Urine Bilirubin NEGATIVE (NEG); Urine Blood TRACE (NEG); Urine Color YELLOW; Urine Glucose NEGATIVE (NEG); Urine Protein NEGATIVE (NEG); Urine Specific Gravity <=1.005 (1.005-1.030); Urine Urobilinogen 0.2 mg/dL (0.2-1.0)
[2017-10-17 13:40] LABS: Urine Microscopic Reflex ORDER UMIC
[2017-10-17 13:42] VITALS: O2SAT 100
[2017-10-17 13:46] LABS: Urine Amorphous Sediment 2+ /HPF (NONE SEEN); Urine Bacteria <20 /HPF (<20); Urine Culture Reflex Order NOT NEEDED; Urine RBC <5 /HPF (NONE SEEN)
--- NOTE | 2017-10-17 13:57 | P.PN ---
Subjective Date of Service: 10/17/17 Chief Complaint: Acute respiratory failure Patient seen and examined at bedside with RN. Chart reviewed. Case discussed with cardiology and nephrology at this time. -overnight patient has no complaints to offer. -this morning patient states that she feels much better but has been having some generalzied weakness. Review of Systems 10-point ROS is otherwise unremarkable Physical Examination - Vital Signs Temperature: 97.5 F Blood Pressure: 96/54 Pulse: 87 Respirations: 16 Pulse Ox (%): 100 - Physical Exam General: Alert, Oriented x3, Mild distress HEENT: Atraumatic, PERRLA, EOMI Neck: Supple, JVD not distended Respiratory: Normal air movement, Crackles/rales Cardiovascular: Regular rate/rhythm, Normal S1 S2 Gastrointestinal: Normal bowel sounds, No tenderness Musculoskeletal: No tenderness Integumentary: No rashes Neurological: Normal speech, Normal tone, Normal affect Lymphatics: No axilla or inguinal lymphadenopathy - Studies Microbiology Data (last 24 hrs): 10/15/17 13:34 Catheterized Urine [place] Count - Final 10/15/17 13:34 Catheterized Urine - Final Medications List Reviewed: Yes Assessment And Plan - Current Problems (Diagnosis) (1) Chronic renal disease Onset Date: 04/24/17 Current Visit: No Status: Chronic Plan: Acute on Chronic KD -BUN.CR elevated today -Nephrology Consulted. appreciate Reccs -IV lasix and sprinolactone Qualifiers: Chronic kidney disease stage: stage 4 (severe) Qualified Code(s): N18.4 - Chronic kidney disease, stage 4 (severe) (2) Combined systolic and diastolic heart failure, acute Current Visit: Yes Status: Acute Plan: Acute on Chronic CHF. Class 4. -Lasix IV BID for now -Spironolactone -Fluid restriction to 1.5L -Strict I&O and Low NA diet -Oxygen dependent at home (3) COPD (chronic obstructive pulmonary disease) Onset Date: 10/04/14 Current Visit: No Status: Chronic Qualifiers: COPD type: COPD with acute exacerbation Qualified Code(s): J44.1 - Chronic obstructive pulmonary disease with (acute) exacerbation (4) Afib Onset Date: 10/04/14 Current Visit: No Status: Chronic Qualifiers: Atrial fibrillation type: chronic Qualified Code(s): I48.2 - Chronic atrial fibrillation (5) CAD (coronary artery disease) Onset Date: 10/04/14 Current Visit: No Status: Chronic Qualifiers: Coronary Disease-Associated Artery/Lesion type: [place] artery [place] vs. transplanted heart: [place] heart Associated angina: without angina Qualified Code(s): I25.10 - Atherosclerotic heart disease of [place] coronary artery without angina pectoris (6) GERD (gastroesophageal reflux disease) Onset Date: 06/24/17 Current Visit: No Status: Chronic Qualifiers: Esophagitis presence: without esophagitis Qualified Code(s): K21.9 - Gastro -esophageal reflux disease without esophagitis (7) History of cardiac pacemaker Onset Date: 04/24/17 Current Visit: No Status: Chronic (8) Hyperlipidemia Onset Date: 04/24/17 Current Visit: No Status: Chronic Qualifiers: Hyperlipidemia type: unspecified Qualified Code(s): E78.5 - Hyperlipidemia , unspecified (9) Hypertension Onset Date: 10/04/14 Current Visit: No Status: Chronic Qualifiers: Hypertension type: essential hypertension Qualified Code(s): I10 - Essential (primary) hypertension - Plan Currently awaiting clinical improvement at this time. Patient still does appear to be volume overloaded. After talking to nephrology at this time patient is to be observed closely with her creatinine elevated today. If there is no improvement after patient is adequately diuresis nephrology might consider possible dialysis however given her age and other comorbid condition her quality of life will not be good once the patient is started on dialysis. At this time will continue the Lasix and hopefully diuresed patient adequately where her creatinine does improve. Discharge Plan: Home Plan to discharge in: 24 Hours - Code Status/Comfort Care Code Status Assessed: Yes Critical Care: No
[2017-10-17] MEDS: MULTIVITAMIN TAB PO SCH (21:56)
[2017-10-17] MEDS: ATORVASTATIN 10 MG TAB PO SCH (21:56)
--- NOTE | 2017-10-18 02:35 | PN ---
Date of Progress Note: 10/17/2017 Chief Complaint: Elevated BUN and creatinine. History Of Present Illness: The patient has multiple medical problems including history of hypertension, coronary artery disease, chronic kidney disease stage 4, baseline creatinine was 2.2. The patient presented to the hospital because of shortness of breath, weakness. She was found to have volume overload and elevated BUN and creatinine. ROS: Today, she denies new complaints. NO fever, no chills, no cough, no melena. Physical Examination: Lungs: Clear to auscultation bilaterally. Heart: S1, S2. Abdomen: Soft, benign. Extremities: Slight edema. Laboratory Work: BUN 29, creatinine 3.6, uric acid 6.5, PTH 57, WBC 4.2. Impression And Plan: 1. Acute kidney injury on chronic kidney disease. The patient has advanced chronic kidney disease. There is undergoing treatment with diuretics for hypervolemia. The patient will continue Lasix for cardiorenal syndrome. Continue low-sodium diet. 2. Hypertension. Blood pressure in acceptable control. Continue diuretics, low-sodium diet. 3. Chronic kidney disease. Monitor renal function closely, adjust diuretics, and plan to replace electrolytes accordingly. 4. Congestive heart failure exacerbation. The patient will continue diuretics. Monitor blood pressure. Adjust blood pressure medication as needed. 5. Proteinuria, non-nephrotic. The patient had renal ultrasound done. It did not show obstructive uropathy. I spent total 36 min including 26 min to coordinate care plan. NATALIE Voice ID: [id number] Report ID: [id number] MTDJake
[2017-10-18 06:05] LABS: Magnesium 2.1 mg/dL (1.8-2.4); Potassium 3.3 mmol/L (3.5-5.1)
[2017-10-18] MEDS ORDERED: POTASSIUM CL SA 10 MEQ TAB PO ONE (06:09)
[2017-10-18] MEDS: FUROSEMIDE 40 MG/4 ML VIAL IV SCH ×3 (06:27→23:44)
[2017-10-18] MEDS: ARFORMOTEROL TARTRATE 15 MCG/2 ML VIAL.NEB NEB SCH ×2 (08:03→19:47)
[2017-10-18] MEDS: ASCORBIC ACID 500 MG TABLET PO SCH (10:26)
[2017-10-18] MEDS: CARVEDILOL 25 MG TAB PO SCH ×2 (10:27→20:28)
[2017-10-18] MEDS: PANTOPRAZOLE 40MG TABLET PO SCH (10:27)
[2017-10-18] MEDS: CLOPIDOGREL 75 MG TABLET PO SCH (10:27)
[2017-10-18] MEDS: FERROUS SULFATE 325 MG TAB PO SCH (10:27)
--- NOTE | 2017-10-18 15:52 | P.PN ---
Subjective Date of Service: 10/18/17 Chief Complaint: Acute respiratory failure Patient seen and examined at bedside with RN. Chart reviewed. Case discussed with cardiology and nephrology at this time. -overnight patient has no complaints to offer. -this morning patient states that she feels much better however has not worked with PT yet. Review of Systems 10-point ROS is otherwise unremarkable General: As per HPI Physical Examination - Vital Signs Temperature: 97.5 F Blood Pressure: 115/60 Pulse: 70 Respirations: 18 Pulse Ox (%): 100 - Physical Exam General: Alert, In no apparent distress HEENT: Atraumatic, PERRLA, EOMI Neck: Supple, JVD not distended Respiratory: Clear to auscultation bilaterally, Normal air movement Cardiovascular: Regular rate/rhythm, Normal S1 S2 Gastrointestinal: Normal bowel sounds, No tenderness Musculoskeletal: No tenderness Integumentary: No rashes Neurological: Normal speech, Normal tone, Normal affect Lymphatics: No axilla or inguinal lymphadenopathy - Studies Medications List Reviewed: Yes Assessment And Plan - Current Problems (Diagnosis) (1) Chronic renal disease Onset Date: 04/24/17 Current Visit: No Status: Chronic Plan: Acute on Chronic KD. -BUN.CR improving but slowly -Nephrology Consulted. appreciate Reccs -IV lasix and spiranolactone -Awaiting clinical improvement. Qualifiers: Chronic kidney disease stage: stage 4 (severe) Qualified Code(s): N18.4 - Chronic kidney disease, stage 4 (severe) (2) Combined systolic and diastolic heart failure, acute Onset Date: 10/18/17 Current Visit: Yes Status: Acute Plan: Acute on Chronic CHF. Class 4. -Lasix IV BID for now -Spironolactone -Fluid restriction to 1.5L -Strict I&O and Low NA diet -Oxygen dependent at home (3) COPD (chronic obstructive pulmonary disease) Onset Date: 10/04/14 Current Visit: No Status: Chronic Qualifiers: COPD type: COPD with acute exacerbation Qualified Code(s): J44.1 - Chronic obstructive pulmonary disease with (acute) exacerbation (4) Afib Onset Date: 10/04/14 Current Visit: No Status: Chronic Qualifiers: Atrial fibrillation type: chronic Qualified Code(s): I48.2 - Chronic atrial fibrillation (5) CAD (coronary artery disease) Onset Date: 10/04/14 Current Visit: No Status: Chronic Qualifiers: Coronary Disease-Associated Artery/Lesion type: [place] artery [place] vs. transplanted heart: [place] heart Associated angina: without angina Qualified Code(s): I25.10 - Atherosclerotic heart disease of [place] coronary artery without angina pectoris (6) GERD (gastroesophageal reflux disease) Onset Date: 06/24/17 Current Visit: No Status: Chronic Qualifiers: Esophagitis presence: without esophagitis Qualified Code(s): K21.9 - Gastro -esophageal reflux disease without esophagitis (7) History of cardiac pacemaker Onset Date: 04/24/17 Current Visit: No Status: Chronic (8) Hyperlipidemia Onset Date: 04/24/17 Current Visit: No Status: Chronic Qualifiers: Hyperlipidemia type: unspecified Qualified Code(s): E78.5 - Hyperlipidemia , unspecified (9) Hypertension Onset Date: 10/04/14 Current Visit: No Status: Chronic Qualifiers: Hypertension type: essential hypertension Qualified Code(s): I10 - Essential (primary) hypertension - Plan Currently awaiting clinical improvement at this time. Currently awaiting BUN and creatinine to improve. Will follow up with nephrology and further plan. Patient will be here in the hospital for next 24-48 hr until kidney function improved.
--- NOTE | 2017-10-18 16:20 | RAD REPORT ---
EXAM DESCRIPTION: RADChest Single View10/18/2017 4:13 pm CLINICAL HISTORY: Shortness of breath COMPARISON: Chest Single View dated 10/15/2017 FINDINGS: The mild bilateral pulmonary opacities appear resolved. Small pleural effusions are suspected. The heart is mildly enlarged. Pacemaker leads are in place
[2017-10-18] MEDS: MULTIVITAMIN TAB PO SCH (20:28)
[2017-10-18] MEDS: ATORVASTATIN 10 MG TAB PO SCH (20:28)
--- NOTE | 2017-10-19 04:50 | PN ---
Date of Progress Note: 10/18/2017 Subjective: The patient is still on nasal cannula. The patient denied any nausea, any vomiting. Th e patient was admitted with acute kidney injury, progression of her disease secondary to cardiorenal. Physical Examination: Vital Signs: Blood pressure 111/49, pulse of 72, afebrile. Chest: Faint crackles on the base. Heart: S1, S2. Regular. Abdomen: Soft, nontender. Extremities: No edema. Laboratory Data: H and H 8.5/25.7. Sodium 137, potassium 3.3, bicarb 34, BUN 29, creatinine 3.6, GF R of 12, calcium 8.2, magnesium 2.1. Current Medications: The patient on its include; 1.Breathing treatment. 2.Plavix. 3.Ferrous sulfate. 4.Atorvastatin. 5.Carvedilol 25 b.i.d. 6.Lasix 40 b.i.d. IV. 7.Pantoprazole. Assessment And Plan: 1.Acute kidney injury on advanced chronic kidney disease, still on the wet side. We will switch the patient to oral to establish better sitting as outpatient. 2.The patient may need dialysis in the near future but currently no uremia, no significant hyperkale ale or acidosis. We will continue to monitor. 3.Congestive heart failure. We will try to establish better volume control with the diuresis. If w e fail, the patient is going to need to initiate dialysis. The patient is not in favor of initiating dialysis for the time being. 4.Hypertension, as above. 5.Hypokalemia, I will supplement gently. SID Voice ID: [id number] Report ID: [id number]
[2017-10-19 06:10] LABS: Potassium 3.7 mmol/L (3.5-5.1)
[2017-10-19] MEDS: FUROSEMIDE 40 MG/4 ML VIAL IV SCH (06:17)
[2017-10-19] MEDS ORDERED: POTASSIUM CL SA 10 MEQ TAB PO ONE (06:31)
[2017-10-19] MEDS: ARFORMOTEROL TARTRATE 15 MCG/2 ML VIAL.NEB NEB SCH (07:35)
[2017-10-19] MEDS: FERROUS SULFATE 325 MG TAB PO SCH (09:34)
[2017-10-19] MEDS: CLOPIDOGREL 75 MG TABLET PO SCH (09:34)
[2017-10-19] MEDS: ASCORBIC ACID 500 MG TABLET PO SCH (09:34)
[2017-10-19] MEDS: PANTOPRAZOLE 40MG TABLET PO SCH (09:34)
[2017-10-19] MEDS: CARVEDILOL 25 MG TAB PO SCH (09:34)
[2017-10-19 13:00] VITALS: BP 121/58; TEMP 97
--- NOTE | 2017-10-19 13:11 | P.DS ---
Admission Date: 10/15/17 Discharge Date: 10/19/17 Disposition: ROUTINE DISCHARGE Discharge Condition: GOOD Reason for Admission: Acute respiratory failure Consultations: cardiology - Problems (1) Chronic renal disease Onset Date: 04/24/17 Current Visit: No Status: Chronic Qualifiers: Chronic kidney disease stage: stage 4 (severe) Qualified Code(s): N18.4 - Chronic kidney disease, stage 4 (severe) (2) Combined systolic and diastolic heart failure, acute Onset Date: 10/18/17 Current Visit: Yes Status: Acute (3) COPD (chronic obstructive pulmonary disease) Onset Date: 10/04/14 Current Visit: No Status: Chronic Qualifiers: COPD type: COPD with acute exacerbation Qualified Code(s): J44.1 - Chronic obstructive pulmonary disease with (acute) exacerbation (4) Afib Onset Date: 10/04/14 Current Visit: No Status: Chronic Qualifiers: Atrial fibrillation type: chronic Qualified Code(s): I48.2 - Chronic atrial fibrillation (5) CAD (coronary artery disease) Onset Date: 10/04/14 Current Visit: No Status: Chronic Qualifiers: Coronary Disease-Associated Artery/Lesion type: [place] artery [place] vs. transplanted heart: [place] heart Associated angina: without angina Qualified Code(s): I25.10 - Atherosclerotic heart disease of [place] coronary artery without angina pectoris (6) GERD (gastroesophageal reflux disease) Onset Date: 06/24/17 Current Visit: No Status: Chronic Qualifiers: Esophagitis presence: without esophagitis Qualified Code(s): K21.9 - Gastro -esophageal reflux disease without esophagitis (7) History of cardiac pacemaker Onset Date: 04/24/17 Current Visit: No Status: Chronic (8) Hyperlipidemia Onset Date: 04/24/17 Current Visit: No Status: Chronic Qualifiers: Hyperlipidemia type: unspecified Qualified Code(s): E78.5 - Hyperlipidemia , unspecified (9) Hypertension Onset Date: 10/04/14 Current Visit: No Status: Chronic Qualifiers: Hypertension type: essential hypertension Qualified Code(s): I10 - Essential (primary) hypertension Brief History of Present Illness: Ms. Thakkar 87-year-old woman with history of multiple medical problems including COPD, hypertension, dyslipidemia, pacemaker placement which has [facility] facility. Her son states that the patient went to the bathroom, she becomes very short of breath and dizzy, at point that patient had lay on the floor. When EMT arrived, her O2 sat was 90% on room air. She was placed and on non-rebreather mask, and her O2 sats improve. No history of fever or chills, no cough or chest pain. At arrival the patient was place on a BiPAP. Lab work was remarkable for normal WBC count, significantly elevation of BNP. Chest x-ray remarkable for bilateral infiltrate consistent with CHF. Hospital Course: Patient main stable while here in the hospital Patient was initially admitted to the hospital for acute respiratory failure most likely secondary to CHF exacerbation. Patient was kept on IV Lasix here in the hospital. Had marked resolution of her symptoms and thus was switched over to p.o. Lasix. Cardiology was consulted who agreed with the plan. Of note patient also had acute kidney injury while here in the hospital top over chronic kidney disease. Patient was seen by nephrology who recommended aggressive diuresing. Patient had improvement in her kidney function and thus was discharged home under stable condition. Patient was asked to continue taking all her medication as prescribed and to be on a strict fluid restriction as well. Vital Signs/Physical Exam: Temp Pulse Resp BP Pulse Ox 97.0 F 61 20 121/58 L 100 10/19/17 12:00 10/19/17 12:00 10/19/17 12:00 10/19/17 12:00 10/19/17 12:00 General: Alert, In no apparent distress HEENT: Atraumatic, PERRLA, EOMI Neck: Supple, JVD not distended Respiratory: Clear to auscultation bilaterally, Normal air movement Cardiovascular: Regular rate/rhythm, Normal S1 S2 Gastrointestinal: Normal bowel sounds, No tenderness Musculoskeletal: No tenderness Integumentary: No rashes Neurological: Normal speech, Normal tone, Normal affect Lymphatics: No axilla or inguinal lymphadenopathy Laboratory Data at Discharge: WBC 4.2 K/uL (4.3-10.9) L D 10/16/17 06:07 Hgb 8.5 g/dL (12.0-15.0) L 10/16/17 06:07 Hct 25.7 % (36.0-45.0) L 10/16/17 06:07 Plt Count 174 K/uL (152-406) 10/16/17 06:07 PT 12.0 SECONDS (9.5-12.5) 10/15/17 12:40 INR 1.02 10/15/17 12:40 APTT 24.0 SECONDS (24.3-36.9) L 10/15/17 12:40 Sodium 139 mmol/L (136-145) 10/19/17 05:05 Potassium 3.7 mmol/L (3.5-5.1) 10/19/17 05:05 BUN 30 mg/dL (7-18) H 10/19/17 05:05 Creatinine 3.40 mg/dL (0.55-1.3) H 10/19/17 05:05 Glucose 91 mg/dL (74-106) 10/19/17 05:05 Uric Acid 6.5 mg/dL (2.6-6.0) H 10/16/17 08:41 Magnesium 2.1 mg/dL (1.8-2.4) 10/18/17 05:02 Total Bilirubin 0.4 mg/dL (0.2-1.0) 10/15/17 12:40 AST 18 U/L (15-37) 10/15/17 12:40 ALT 15 U/L (12-78) 10/15/17 12:40 Alkaline Phosphatase 61 U/L (45-117) 10/15/17 12:40 Troponin I 0.08 ng/mL (0.0-0.045) H 10/16/17 13:24 Home Medications: Albuterol Sulfate [Ventolin Hfa] 2 puff IH QID PRN 09/06/17 Ascorbic Acid [Vitamin C] 250 mg PO DAILY 09/06/17 Carvedilol 25 mg PO BID 09/06/17 Clopidogrel Bisulfate [Plavix*] 75 mg PO DAILY 09/06/17 Ferrous Sulfate 325 mg PO DAILY 09/06/17 Losartan Potassium [Cozaar] 100 mg PO BEDTIME 09/06/17 Multivit,Ther Iron,Ca,FA & Min [Centrum Tablet*] 1 tab PO BEDTIME 09/06/17 Pantoprazole Sodium [Protonix] 40 mg PO DAILY 09/06/17 Pravastatin Sodium 80 mg PO DAILY 09/06/17 Arformoterol Tartrate [Brovana] 15 mcg NEB BIDRESP #60 vial.neb 09/10/17 Furosemide [Lasix*] 20 mg PO DAILY #30 tab 09/10/17 predniSONE [Prednisone*] 20 mg PO SEECOM #5 tab 09/10/17 Patient Discharge Instructions: Please F.u with PCP and Cardioloyg and Nephrology in 1 to 2 week post discharge. No new medication. Continue all other medication As precribed. Diet: Regular Activity: Ad jessica Followup: Burak Sheldon MD [ACTIVE - CAN ADMIT] - 1 Week Andrea Rao MD [ACTIVE - CAN ADMIT] - 1 Week
[2017-10-19] MEDS ORDERED: FUROSEMIDE 40 MG TABLET PO SCH (21:00)
--- NOTE | 2017-10-20 02:26 | PN ---
Date of Progress Note: 10/19/2017 Subjective: The patient feeling better. No shortness of breath. The patient yesterday, we switched her to oral Lasix. Physical Examination: Vital Signs: Blood pressure of 121/58, pulse of 61, afebrile. Chest: Faint crackles on the base. Heart: S1, S2. Systolic murmur. Abdomen: Soft, nontender. Extremities: No edema. Laboratory Data: H and H 8.5/25.7. Sodium 139, potassium 3.7, bicarb 35, BUN 30, creatinine 3.8, GF R of 13. Current Medications: The patient on include: 1.Tylenol. 2.Albuterol. 3.Vitamin C. 4.Oral iron. 5.Lasix 40 daily. 6.Multivitamin. 7.Pantoprazole. 8.KCl. Assessment And Plan: 1.Acute kidney injury secondary to cardiorenal. I am going to go ahead and increase Lasix to 40 b.i .d. The patient cleared from the renal standpoint for discharge planning to follow up in the office in 2 weeks. 2.Hypertension, controlled, optimal. Continue current medication. Increase Lasix. 3.Secondary hyperparathyroidism, stable. JESSICA/ADITI Voice ID: [id number] Report ID: [id number]
[2017-10-20] MEDS ORDERED: FUROSEMIDE 40 MG TABLET PO SCH (09:00)
== END 2017-10-19 16:21 | disposition home or self-care (01) | DRG 291 ==
LOC: ER 12:20 → ERHOLD 13:38 → 4TH 19:52
PROVIDERS: ADMIT Internal Medicine; ATTEND Family Medicine
PROC: 5A09357 Assistance with Respiratory Ventilation, Less than 24 Consecutive Hours, Continuous Positive Airway Pressure (ICD-10-PCS; principal; 2017-10-15)
DX: I13.0 Hypertensive heart and chronic kidney disease with heart failure and stage 1 through stage 4 chronic kidney disease, or unspecified chronic kidney disease (principal); J96.00 Acute respiratory failure, unspecified whether with hypoxia or hypercapnia; I50.43 Acute on chronic combined systolic (congestive) and diastolic (congestive) heart failure; J44.1 Chronic obstructive pulmonary disease with (acute) exacerbation; N17.9 Acute kidney failure, unspecified; N25.81 Secondary hyperparathyroidism of renal origin; N18.4 Chronic kidney disease, stage 4 (severe); I48.2 Chronic atrial fibrillation; I25.10 Atherosclerotic heart disease of native coronary artery without angina pectoris; K21.9 Gastro-esophageal reflux disease without esophagitis; I73.9 Peripheral vascular disease, unspecified; E87.6 Hypokalemia; E78.5 Hyperlipidemia, unspecified; Z79.02 Long term (current) use of antithrombotics/antiplatelets; Z79.52 Long term (current) use of systemic steroids; Z95.810 Presence of automatic (implantable) cardiac defibrillator; Z99.81 Dependence on supplemental oxygen; Z88.0 Allergy status to penicillin; Z88.8 Allergy status to other drugs, medicaments and biological substances; Z88.1 Allergy status to other antibiotic agents; Z91.041 Radiographic dye allergy status; Z98.61 Coronary angioplasty status
CPT/HCPCS: 36415; 51702; 71045; 76770; 80048; 80076; 81003; 81015; 82550; 82553; 82570; 82805; 82962; 83735; 83880; 83970; 84132; 84156; 84484; 84550; 85025; 85610; 85730; 86850; 86900; 86901; 87040; 87086; 87088; 93005; 94640; 94660; 94760; 96374; 99285; J1940; J3475; J7605

== ENCOUNTER 2017-11-11 20:16 | Inpatient (IN) | payer OTHER ==
[2017-11-11] MEDS ORDERED: ALBUTEROL 2.5 MG/3 ML NEB SOL ONE (21:00)
[2017-11-11] MEDS ORDERED: VANCOMYCIN 1 GM/250 ML BAG ONE (21:01)
[2017-11-11] MEDS ORDERED: IPRATROPIUM BROM 0.5MG/2.5ML ONE (21:01)
[2017-11-11] MEDS ORDERED: NA CHLORIDE 0.9% 500 ML ONE (21:01)
[2017-11-11] MEDS ORDERED: CEFEPIME 1 GM/100 ML BAG IV ONE (21:01)
[2017-11-11 21:23] LABS: Absolute Lymphocytes (CBC) 0.5 K/uL (0.7-4.9); Absolute Monocytes 0.4 K/uL (0.1-1.3); Basophils % 0.6 % (0-1.3); Hematocrit 23.8 % (36.0-45.0); RBC Red Blood Cell Count 2.61 M/uL (3.86-4.86)
[2017-11-11 21:30] LABS: Absolute Neutrophil 3.4 K/uL (1.8-8.0); Eosinophils % 6.9 % (0-4.4); Lymphocytes % 10.6 % (15.3-44.8); MCH 29.6 pg (27.0-35.0); MCV 91.5 fL (80-100); MPV 8.9 fL (7.6-11.3); Monocytes % 8.4 % (3.3-12.3); Protime INR 1.03
--- NOTE | 2017-11-11 21:44 | RAD REPORT ---
EXAM DESCRIPTION: Td Single View11/11/2017 9:15 pm CLINICAL HISTORY: Shortness of breath COMPARISON: September 2017 FINDINGS: The lungs appear clear of acute infiltrate. The heart is mildly enlarged. Pacemaker leads are in place. IMPRESSION: No acute abnormalities displayed
[2017-11-11] MEDS ORDERED: METHYLPREDNISOLONE 125 MG INJ ONE (21:48)
[2017-11-11 22:22] LABS: Albumin 2.9 g/dL (3.4-5.0); Bilirubin Direct 0.2 mg/dL (0-0.2); Bilirubin Total 0.3 mg/dL (0.2-1.0); Magnesium 1.8 mg/dL (1.8-2.4); Potassium 3.3 mmol/L (3.5-5.1); Protein, Total 5.3 g/dL (6.4-8.2); Troponin (Emerg Dept Use Only) 0.1 ng/mL (0.0-0.045)
--- NOTE | 2017-11-11 22:52 | ER ---
Nurse's Notes [facility] Name: Bárbara Thakkar Age: 87 yrs Sex: Female : 1930 Arrival Date: 11/11/2017 Time: 20:20 Bed 4 Private MD: Abhinav Curiel H Diagnosis: Anemia in chronic kidney disease Presentation: 11/11 20:26 Presenting complaint: EMS states: Called for patient due to Home Health notifying her lp1 that her hemoglobin was low on previous blood work; States she has had generalized weakness for a couple of days; hx of needing transfusions, unknown cause. Transition of care: patient was not received from another setting of care. Onset of symptoms was November 11, 2017. Risk Assessment: Do you want to hurt yourself or someone else? Patient reports no desire to harm self or others. Initial Sepsis Screen: Does the patient meet any 2 criteria? No. Patient's initial sepsis screen is negative. Does the patient have a suspected source of infection? No. Patient's initial sepsis screen is negative. Care prior to arrival: Medication(s) given: Albuterol Neb x 1, Atrovent Neb x 1, Glucose check: 185. 20:26 Method Of Arrival: EMS: [facility] lp1 20:26 Acuity: CECE 3 lp1 Historical: - Allergies: 20:34 acetylcysteine; lp1 20:34 Ciprofloxacin; lp1 20:34 Iodinated Contrast Media - IV Dye; lp1 20:34 PENICILLINS; lp1 - Home Meds: 20:34 Advair Diskus 250-50 mcg/dose Inhl dsdv 1 puff 2 times per day [Active]; albuterol lp1 sulfate 2.5 mg /3 mL (0.083 %) Inhl nebu [Active]; amlodipine 10 mg tab 1 tab once daily [Active]; aspirin 81 mg Oral chew 1 tab once daily [Active]; Brovana 15 mcg/2 mL inhalation nebu 2 mL 2 times per day [Active]; carvedilol 25 mg Oral tab 1 tab 2 times per day [Active]; carvedilol 25 mg Oral tab 1 tab 2 times per day [Active]; clopidogrel 75 mg Oral tab 1 tab once daily [Active]; Cozaar 100 mg Oral tab 1 tab once daily [Active]; ferrous gluconate 240 mg (27 mg iron) Oral tab daily [Active]; hydralazine 25 mg Oral tab 1 tab 2 times per day [Active]; ipratropium bromide 0.02 % inhalation soln [Active]; Lasix 20 mg Oral tab 1 tab once daily [Active]; pantoprazole 40 mg Oral TbEC 1 tab once daily [Active]; Plavix 75 mg Oral tab 1 tab once daily [Active]; pravastatin 80 mg Oral tab 1 tab once daily [Active]; pravastatin 80 mg Oral tab 1 tab once daily [Active]; - PMHx: 20:34 COPD; High Cholesterol; Hypertension; Pacemaker; lp1 - Immunization history:: Adult Immunizations up to date, Pneumococcal vaccine is not up to date, Flu vaccine is not up to date. - Social history:: Smoking status: Patient/guardian denies using tobacco, the patient reports quitting approximately 10 years ago, Patient/guardian denies using alcohol, street drugs, The patient lives with family. - Ebola Screening: : No symptoms or risks identified at this time. - Family history:: not pertinent. - Hospitalizations: : No recent hospitalization is reported. Screenin:35 Abuse screen: Denies threats or abuse. Denies injuries from another. Nutritional lp1 screening: No deficits noted. Tuberculosis screening: No symptoms or risk factors identified. Fall Risk Total Griffiths Fall Scale indicates High Risk Score (45 or more points). Fall prevention measures have been instituted. Side Rails Up X 2 As available patient and family educated on Fall Prevention Program and Strategies. Assessment: 20:30 General: Appears in no apparent distress. comfortable, Behavior is calm, cooperative, bp appropriate for age. Pain: Denies pain. Neuro: Level of Consciousness is awake, alert, obeys commands, Oriented to person, place, time, situation, Appropriate for age. Cardiovascular: Rhythm is Respiratory: Airway is patent Respiratory effort is even, labored, Respiratory pattern is regular, Breath sounds with crackles. GI: No signs and/or symptoms were reported involving the gastrointestinal system. Patient currently denies bloody stool. : No signs and/or symptoms were reported regarding the genitourinary system. EENT: No deficits noted. Derm: Bruising that is SCATTERED BRUISING IN VARIOUS STAGES OF HEALING. Derm: Skin is clammy, Skin is pale, Skin temperature is cool. Musculoskeletal: Circulation, motion, and sensation intact. Range of motion: intact in all extremities. 21:37 Reassessment: critical lab result- hgb 7.7 relayed by clinical laboratory assistant Dr. Natalya Urias mg2 informed. Vital Signs: 20:29 BP 128 / 66; Pulse 84; Resp 24; Temp 98.0(O); Pulse Ox 100% on 2 lpm NC; Weight 58.51 lp1 kg; Height 5 ft. 0 in. (152.40 cm); Pain 0/10; 21:30 BP 113 / 88; Pulse 77; Resp 19; Pulse Ox 100% ; bp 11/12 00:00 BP 118 / 51; Pulse 78; Resp 13; Pulse Ox 100% ; bp 11/11 20:29 Body Mass Index 25.19 (58.51 kg, 152.40 cm) lp1 ED Course: 11/11 20:20 Patient arrived in ED. am2 20:20 Abhinav Curiel DO is Private Physician. am2 20:25 Julio Martínez MD is Attending Physician. ma2 20:25 Fartun Santos, JOSSELYN is Primary Nurse. lp1 20:29 Triage completed. lp1 20:29 Arm band placed on left wrist. lp1 20:34 Patient has correct armband on for positive identification. Placed in gown. Bed in low lp1 position. Call light in reach. Side rails up X2. nurse monitoring on. Pulse ox on. NIBP on. 20:58 XRAY Chest (1 view) In Process Unspecified. EDMS 21:05 Inserted saline lock: 22 gauge in right antecubital area, using aseptic technique. lp1 Blood collected. 21:05 First set of blood cultures drawn by me. lp1 21:09 Second set of blood cultures drawn to left AC. lp1 22:14 Albert Garvey, RN is Primary Nurse. bp 22:51 Julio Wilson MD is Hospitalizing Provider. ma2 23:35 Inserted saline lock: 20 gauge in left antecubital area, using aseptic technique. Blood lp1 collected. 11/12 00:03 No provider procedures requiring assistance completed. Patient admitted, IV remains in bp place. Administered Medications: 11/11 21:00 Drug: DuoNeb (3:1) (2.5 mg - 0.5 mg) 3 ml Route: Nebulizer; bp 21:05 Follow up: Response: No adverse reaction bp 21:00 Drug: MethylPrednisoLONE 125 mg Route: IVP; Site: right antecubital; bp 21:46 Follow up: Response: No adverse reaction bp 21:10 Drug: Cefepime 1 grams Route: IVPB; Rate: 200 ml/hr; Infused Over: 30 mins; Site: right bp antecubital; 22:15 Follow up: IV Status: Completed infusion; IV Intake: 100ml bp 21:10 Drug: NS 0.9% 500 ml Route: IV; Rate: bolus; Site: right antecubital; bp 11/12 00:13 Follow up: IV Status: Completed infusion; IV Intake: 500ml bp 11/11 21:30 Drug: vancoMYCIN 1 grams Route: IVPB; Infused Over: 2 hrs; Site: right antecubital; bp 11/12 00:13 Follow up: IV Status: Completed infusion; IV Intake: 250ml bp Intake: 11/11 22:15 IV: 100ml; Total: 100ml. bp 11/12 00:13 IV: 250ml; Total: 350ml. bp 00:13 IV: 500ml; Total: 850ml. bp Outcome: 11/11 22:52 Decision to Hospitalize by Provider. ma2 11/12 00:04 Condition: stable bp Instructed on the need for admit. 00:09 Admitted to Tele accompanied by tech, family with patient, via stretcher, room 429, bp with chart, Report called to SHIRA ARCOS 00:27 Patient left the ED. bp Signatures: Dispatcher [employer] EDMS Fartun Santos RN RN 1 Roan Foster am2 Albert Garvey RN RN bp Julio Martínez MD MD ma2 Enrike Dunham RN RN mg2
--- NOTE | 2017-11-11 22:52 | EDPHYS ---
Physician Documentation [facility] Name: Bárbara Thakkar Age: 87 yrs Sex: Female : 1930 Arrival Date: 11/11/2017 Time: 20:20 Bed 4 Private MD: Abhinav Curiel H ED Physician Julio Martínez HPI: 11/11 22:52 This 87 yrs old Female presents to ER via EMS with complaints of Low blood ma2 count. 22:05 The patient has shortness of breath at rest. Onset: The symptoms/episode began/occurred ma2 gradually, 1 day(s) ago. Duration: The symptoms are continuous. The patient's shortness of breath has no apparent modifying factors. Associated signs and symptoms: Pertinent positives: non-productive cough, Pertinent negatives: chest pain, dizziness, fever, numbness in extremities. Severity of symptoms: At their worst the symptoms were moderate in the emergency department the symptoms have improved. The patient has experienced similar episodes in the past. sent from home nurse for low HB . Historical: - Allergies: 20:34 acetylcysteine; lp1 20:34 Ciprofloxacin; lp1 20:34 Iodinated Contrast Media - IV Dye; lp1 20:34 PENICILLINS; lp1 - Home Meds: 20:34 Advair Diskus 250-50 mcg/dose Inhl dsdv 1 puff 2 times per day [Active]; albuterol lp1 sulfate 2.5 mg /3 mL (0.083 %) Inhl nebu [Active]; amlodipine 10 mg tab 1 tab once daily [Active]; aspirin 81 mg Oral chew 1 tab once daily [Active]; Brovana 15 mcg/2 mL inhalation nebu 2 mL 2 times per day [Active]; carvedilol 25 mg Oral tab 1 tab 2 times per day [Active]; carvedilol 25 mg Oral tab 1 tab 2 times per day [Active]; clopidogrel 75 mg Oral tab 1 tab once daily [Active]; Cozaar 100 mg Oral tab 1 tab once daily [Active]; ferrous gluconate 240 mg (27 mg iron) Oral tab daily [Active]; hydralazine 25 mg Oral tab 1 tab 2 times per day [Active]; ipratropium bromide 0.02 % inhalation soln [Active]; Lasix 20 mg Oral tab 1 tab once daily [Active]; pantoprazole 40 mg Oral TbEC 1 tab once daily [Active]; Plavix 75 mg Oral tab 1 tab once daily [Active]; pravastatin 80 mg Oral tab 1 tab once daily [Active]; pravastatin 80 mg Oral tab 1 tab once daily [Active]; - PMHx: 20:34 COPD; High Cholesterol; Hypertension; Pacemaker; lp1 - Immunization history:: Adult Immunizations up to date, Pneumococcal vaccine is not up to date, Flu vaccine is not up to date. - Social history:: Smoking status: Patient/guardian denies using tobacco, the patient reports quitting approximately 10 years ago, Patient/guardian denies using alcohol, street drugs, The patient lives with family. - Ebola Screening: : No symptoms or risks identified at this time. - Family history:: not pertinent. - Hospitalizations: : No recent hospitalization is reported. ROS: 22:05 Constitutional: Negative for fever, chills, and weight loss, ENT: Negative for injury, ma2 pain, and discharge, Cardiovascular: Negative for chest pain, palpitations, and edema, Neuro: Negative for headache, weakness, numbness, tingling, and seizure, Psych: Negative for depression, anxiety, suicide ideation, homicidal ideation, and hallucinations. 22:05 Respiratory: Positive for cough, shortness of breath, wheezing, Negative for dyspnea on exertion, hemoptysis, pleurisy. 22:05 All other systems are negative. Exam: 22:05 Head/Face: Normocephalic, atraumatic. ENT: Nares patent. No nasal discharge, no ma2 septal abnormalities noted. Tympanic membranes are normal and external auditory canals are clear. Oropharynx with no redness, swelling, or masses, exudates, or evidence of obstruction, uvula midline. Mucous membranes moist. Chest/axilla: Normal chest wall appearance and motion. Nontender with no deformity. No lesions are appreciated. Cardiovascular: Regular rate and rhythm with a normal S1 and S2. No gallops, murmurs, or rubs. Normal PMI, no JVD. No pulse deficits. Abdomen/GI: Soft, non-tender, with normal bowel sounds. No distension or tympany. No guarding or rebound. No evidence of tenderness throughout. MS/ Extremity: Pulses equal, no cyanosis. Neurovascular intact. Full, normal range of motion. Neuro: Awake and alert, GCS 15, oriented to person, place, time, and situation. Cranial nerves II-XII grossly intact. Motor strength 5/5 in all extremities. Sensory grossly intact. Cerebellar exam normal. Normal gait. 22:05 Constitutional: The patient appears in obvious distress, moderately distressed. 22:05 Respiratory: mild respiratory distress is noted, moderate respiratory distress is noted, Respirations: tachypnea, Breath sounds: rhonchi, wheezing: Respiratory rate: 30 Vital Signs: 20:29 BP 128 / 66; Pulse 84; Resp 24; Temp 98.0(O); Pulse Ox 100% on 2 lpm NC; Weight 58.51 lp1 kg; Height 5 ft. 0 in. (152.40 cm); Pain 0/10; 21:30 BP 113 / 88; Pulse 77; Resp 19; Pulse Ox 100% ; bp 11/12 00:00 BP 118 / 51; Pulse 78; Resp 13; Pulse Ox 100% ; bp 11/11 20:29 Body Mass Index 25.19 (58.51 kg, 152.40 cm) lp1 MDM: 11/11 20:32 Patient medically screened. ma2 22:05 Differential diagnosis: Anemia Anxiety Reaction Chronic Obstructive Pulmonary Disease ma2 pneumonia, pulmonary edema, reactive airway disease, Sepsis. Antibiotic administration: HAP. Data reviewed: vital signs, nurses notes, lab test result(s), EKG, radiologic studies. Counseling: I had a detailed discussion with the patient and/or guardian regarding: the historical points, exam findings, and any diagnostic results supporting the discharge/admit diagnosis, the presence of at least one elevated blood pressure reading (>120/80) during this emergency department visit, the need for further work-up and treatment in the hospital. Response to treatment: the patient's symptoms have mildly improved after treatment. 22:51 ED course: discussed with dr. blanca . 11/11 20:34 Order name: Basic Metabolic Panel; Complete Time: 22:48 ny11/11 20:34 Order name: CBC with Diff; Complete Time: 21:51 ny11/11 20:34 Order name: LFT's; Complete Time: 22:48 [facility] 11/11 20:34 Order name: Magnesium; Complete Time: 22:48 [facility] 11/11 20:34 Order name: NT PRO-BNP; Complete Time: 22:48 [facility] 11/11 20:34 Order name: PT-INR; Complete Time: 21:33 [facility] 11/11 20:34 Order name: Troponin (emerg Dept Use Only); Complete Time: 22:48 [facility] 11/11 20:34 Order name: XRAY Chest (1 view); Complete Time: 21:51 [facility] 11/11 20:34 Order name: Blood Culture Adult (2) [facility] 11/11 22:41 Order name: Type and Screen [facility] 11/11 22:41 Order name: Packed RBC Leukored -1 [facility] 11/11 20:34 Order name: EKG; Complete Time: 20:35 [facility] 11/11 20:34 Order name: Cardiac monitoring; Complete Time: 21:15 [facility] 11/11 20:34 Order name: EKG - Nurse/Tech; Complete Time: 20:37 [facility] 11/11 20:34 Order name: IV Saline Lock; Complete Time: 21:15 [facility] 11/11 20:34 Order name: Labs collected and sent; Complete Time: 21:15 [facility] 11/11 20:34 Order name: O2 Per Protocol; Complete Time: 21:16 [facility] 11/11 20:34 Order name: O2 Sat Monitoring; Complete Time: 21:16 [facility] 11/11 23:25 Order name: CONS Pharmacy Consult [facility] 11/11 23:25 Order name: Heart Healthy [facility] Administered Medications: 21:00 Drug: DuoNeb (3:1) (2.5 mg - 0.5 mg) 3 ml Route: Nebulizer; bp 21:05 Follow up: Response: No adverse reaction bp 21:00 Drug: MethylPrednisoLONE 125 mg Route: IVP; Site: right antecubital; bp 21:46 Follow up: Response: No adverse reaction bp 21:10 Drug: Cefepime 1 grams Route: IVPB; Rate: 200 ml/hr; Infused Over: 30 mins; Site: right bp antecubital; 22:15 Follow up: IV Status: Completed infusion; IV Intake: 100ml bp 21:10 Drug: NS 0.9% 500 ml Route: IV; Rate: bolus; Site: right antecubital; bp 11/12 00:13 Follow up: IV Status: Completed infusion; IV Intake: 500ml bp 11/11 21:30 Drug: vancoMYCIN 1 grams Route: IVPB; Infused Over: 2 hrs; Site: right antecubital; bp 11/12 00:13 Follow up: IV Status: Completed infusion; IV Intake: 250ml bp Disposition: 11/11/17 22:52 Hospitalization ordered by Julio Blanca for Observation. Preliminary diagnosis is Anemia in chronic kidney disease. - Bed requested for Telemetry/MedSurg (observation). - Status is Observation. bp - Condition is Stable. - Problem is chronic. - Symptoms have worsened. UTI on Admission? No Signatures: Dispatcher [employer] EDMS Lottie Manzo RN RN Fartun Santos RN RN lp1 Albert Garvey RN RN [facility] ma2 Corrections: (The following items were deleted from the chart) 11/11 23:53 22:52 Hospitalization Ordered by Julio Blanca MD for Observation. Preliminary diagnosis is Anemia in chronic kidney disease. Bed requested for Telemetry/MedSurg (observation). Status is Observation. Condition is Stable. Problem is chronic. Symptoms have worsened. UTI on Admission? No. ma2 11/12 00:27 11/11 23:53 11/11/2017 22:52 Hospitalization Ordered by Julio Blanca MD for bp Observation. Preliminary diagnosis is Anemia in chronic kidney disease. Bed requested for Telemetry/MedSurg (observation). Status is Observation. Condition is Stable. Problem is chronic. Symptoms have worsened. UTI on Admission? No. kl
[2017-11-11] MEDS ORDERED: MAGNESIUM HYDROXIDE 8% 30 ML PO PRN (23:04)
[2017-11-11] MEDS ORDERED: ACETAMINOPHEN 500 MG TAB PO PRN (23:04)
[2017-11-11] MEDS ORDERED: ONDANSETRON 4 MG/2 ML VIAL IV PRN (23:04)
[2017-11-12] MEDS: IPRATROPIUM BROM 0.5MG/2.5ML NEB SCH ×4 (02:17→21:13)
[2017-11-12] MEDS ORDERED: NA CHLORIDE 0.9% 250 ML ONE (02:29)
[2017-11-12] MEDS ORDERED: POTASSIUM CL SA 10 MEQ TAB PO ONE (02:52)
[2017-11-12] MEDS ORDERED: MAGNESIUM SULFATE 1 gm IVPB 1 GM/100 ML BAG IV ONE (02:53)
[2017-11-12] MEDS ORDERED: NA CHLORIDE 0.9% 100 ML IV ONE (04:46)
[2017-11-12] MEDS ORDERED: ALBUMIN HUMAN 25% 100 ML IV ONE (06:00)
[2017-11-12] MEDS: FUROSEMIDE 40 MG/4 ML VIAL IV SCH ×3 (06:02→17:22)
[2017-11-12] MEDS ORDERED: INSULIN -REGULAR HUMAN 50 UNIT/0.5 ML ML SQ SCH (07:30)
--- NOTE | 2017-11-12 08:36 | P.HP ---
Certification for Inpatient Patient admitted to: Observation With expected LOS: <2 Midnights Patient will require the following post-hospital care: None Practitioner: I am a practitioner with admitting privileges, knowledge of patient current condition, hospital course, and medical plan of care. Services: Services provided to patient in accordance with Admission requirements found in Title 42 Section 412.3 of the Code of Federal Regulations Patient History Date of Service: 11/11/17 Reason for admission: Anemia/shortness of breath History of Present Illness: Patient is an 86-year-old female who came into the hospital with anemia. She was seen by the home health agency who lynn her labs initiate her hemoglobin was very low. She was sent into the emergency room for further evaluation. In the emergency room she was found to be short of breath. She does have a history of CHF with ejection fraction of 40%. A few months ago her ejection fraction was normal. She also has Coronary artery disease status post stent placement. And she has atrial fibrillation and she has had a pacemaker placed as well. Her renal function has been poor for many months now. She sees Nephrology. She also has COPD which worsens her respiratory status. However, she does not have a compensatory elevation of her hemoglobin which worsens her respiratory status. She will be admitted to the hospital for blood transfusion and will try to keep her hemoglobin greater than 10 because of her significant cardiac disease. Will also need to discuss with Nephrology to see if she may benefit from Procrit injections weekly. Allergies acetylcysteine [From Mucomyst] Allergy (Mild, Verified 09/06/17 04:01) Shortness of breath Iodinated Contrast- Oral and IV Dye Allergy (Verified 09/06/17 04:01) Itching/Hives/Rash ciprofloxacin Adverse Reaction (Mild, Verified 09/06/17 04:01) muscle spasm Penicillins Adverse Reaction (Mild, Verified 09/06/17 04:01) Itching Home Medications: Albuterol Sulfate [Ventolin Hfa] 2 puff IH QID PRN 09/06/17 Carvedilol 25 mg PO BID 09/06/17 Clopidogrel Bisulfate [Plavix*] 75 mg PO DAILY 09/06/17 Ferrous Sulfate 325 mg PO DAILY 09/06/17 Losartan Potassium [Cozaar] 100 mg PO BEDTIME 09/06/17 Multivit,Ther Iron,Ca,FA & Min [Centrum Tablet*] 1 tab PO BEDTIME 09/06/17 Amlodipine [Norvasc] 10 mg PO DAILY 11/12/17 Ascorbic Acid [Vitamin C] 250 mg PO DAILY 11/12/17 Aspirin 81 mg PO DAILY 11/12/17 Furosemide [Lasix*] 40 mg PO DAILY 11/12/17 Pravastatin Sodium [Pravachol] 80 mg PO DAILY 11/12/17 - Past Medical/Surgical History Has patient received pneumonia vaccine in the past: No Diabetic: No -: COPD, Oxygen dependent -: HTN -: Atrial fibrillation, Pacemaker -: GERD -: Chronic anemia -: CAD -: PVD -: Carotid arterial disease -: Hyperlipidemia -: Permanent Pacemaker to upper rt chest-Sep [address] Narvaez -: Cornary stents -: kidney stents and stents to ea leg -: Bilateral lens implants -: Bilateral carpal tunnel repair -: Hysterectomy -: Appendectomy -: Tonsillectomy Psychosocial/ Personal History: She is - Family History Mother Medical History: Heart disease, Diabetes Notes: of NH Sister Medical History: Diabetes - Social History Smoking Status: Former smoker Alcohol use: No CD- Drugs: No Caffeine use: No Place of Residence: Home Review of Systems 10-point ROS is otherwise unremarkable Physical Examination - Vital Signs Temperature: 96.3 F Blood Pressure: 147/71 Pulse: 85 Respirations: 20 Pulse Ox (%): 98 - Physical Exam General: Alert, In no apparent distress, Oriented x2 HEENT: Atraumatic, PERRLA, Mucous membr. moist/pink, EOMI, Sclerae nonicteric Neck: Supple, 2+ carotid pulse no bruit, No LAD, Without JVD or thyroid abnormality Respiratory: Diminished, Crackles/rales Cardiovascular: Regular rate/rhythm, Normal S1 S2, Systolic murmur Gastrointestinal: Normal bowel sounds, Soft and benign, Non-distended, No tenderness Musculoskeletal: No clubbing, Swelling Integumentary: No rashes, Tenderness/swelling, Erythema (Of the lower extremity but most likely related to edema) Neurological: Normal speech, Normal tone, Sensation intact, Cranial nerves 3-12 intact, Normal affect, Abnormal gait, Abnormal strength Lymphatics: No axilla or inguinal lymphadenopathy - Studies Laboratory Data (last 24 hrs) 11/11/17 21:05: PT 12.1, INR 1.03 11/11/17 21:05: WBC 4.6, Hgb 7.7 L*, Hct 23.8 L, Plt Count 100 L 11/11/17 21:05: Sodium 131 L, Potassium 3.3 L, BUN 31 H, Creatinine 3.30 H, Glucose 140 H, Magnesium 1.8, Total Bilirubin 0.3, AST 14 L, ALT 16, Alkaline Phosphatase 65 Assessment & Plan - Problems (Diagnosis) (1) Systolic dysfunction with acute on chronic heart failure Current Visit: Yes Status: Acute (2) COPD (chronic obstructive pulmonary disease) Current Visit: Yes Status: Acute (3) Acute diastolic heart failure Onset Date: 06/24/17 Current Visit: No Status: Acute (4) Paroxysmal A-fib Onset Date: 06/24/17 Current Visit: No Status: Acute (5) Chronic renal disease Onset Date: 04/24/17 Current Visit: No Status: Chronic Qualifiers: Chronic kidney disease stage: stage 4 (severe) Qualified Code(s): N18.4 - Chronic kidney disease, stage 4 (severe) (6) Hyperlipidemia Onset Date: 04/24/17 Current Visit: No Status: Chronic Qualifiers: Hyperlipidemia type: unspecified Qualified Code(s): E78.5 - Hyperlipidemia , unspecified (7) Hypertension Onset Date: 10/04/14 Current Visit: No Status: Chronic Qualifiers: Hypertension type: essential hypertension Qualified Code(s): I10 - Essential (primary) hypertension (8) Status post placement of cardiac pacemaker Onset Date: 10/18/17 Current Visit: No Status: Chronic (9) Obstructive sleep apnea Onset Date: 10/18/17 Current Visit: No Status: Suspected - Plan 1. Echocardiogram has been reviewed from last month. She has had a substantial drop in her ejection fraction over the last 6 months. It has gone from a normal ejection fraction of 60% to 40%. Yaya within this time. She has also had a substantial drop in her GFR from 25 to less than 15. 2. Hold off on Dominic or ARB 3. Low dose Beta samaria 4. Cardiology consultation 5. Aggressive diuresis as she has significant 3rd spacing over her lower extremities with secondary erythema 6. Strict I's and O's 7. Repeat CXR 8. Daily weights 9. Education regarding diet and treatment of congestive heart failure 10. Will also transfuse to keep her hemoglobin greater than 10. 11. Continue PPI drip 12. Monitor H&H closely 13. Continue with pain control as needed 14. NPO 15. GI consultation 16. GI and DVT prophylaxis Discharge Plan: Home Plan to discharge in: Greater than 2 days - Advance Directives Does patient have a Living Will: No Does patient have a Durable POA for Healthcare: Yes - Code Status/Comfort Care Code Status Assessed: Yes Code Status: Full Code Critical Care: No Time Spent Managing PTS Care (In Minutes): 50
[2017-11-12] MEDS ORDERED: FUROSEMIDE 40 MG/4 ML VIAL IV SCH (09:00)
--- NOTE | 2017-11-12 09:25 | EKG ---
Test Date: 2017-11-11 Test Time: 20:30:16 Jacquard Loom Card Changer: MARGARET MEASUREMENT RESULTS: Intervals: Rate: 76 TN: QRSD: 134 QT: 400 QTc: 450 Gilmer: P: TN: QRS: -23 T: 180 INTERPRETIVE STATEMENTS: Atrial fibrillation Nonspecific intraventricular block T wave abnormality, consider lateral ischemia or digitalis effect Abnormal ECG Compared to ECG 10/15/2017 13:14:03 Uncertain supraventricular rhythm no longer present T-wave abnormality still present Possible ischemia still present Electronically Signed On 11-12-17 09:24:04 CDT by Andrea Rao
[2017-11-12] MEDS ORDERED: FUROSEMIDE 40 MG/4 ML VIAL IV ONE (10:00)
[2017-11-12] MEDS: HEPARIN 5000 UNIT/ML 1 ML VIAL SQ SCH ×2 (10:08→22:33)
[2017-11-12 10:53] LABS: Absolute Lymphocytes (CBC) 0.2 K/uL (0.7-4.9); Absolute Neutrophil 3.1 K/uL (1.8-8.0); Basophils % 1.6 % (0-1.3); Eosinophils % 0.3 % (0-4.4); Lymphocytes % 6.4 % (15.3-44.8); MCV 89.9 fL (80-100); MPV 8.8 fL (7.6-11.3); Monocytes % 0.7 % (3.3-12.3); RBC Red Blood Cell Count 3.67 M/uL (3.86-4.86)
[2017-11-12 11:01] LABS: RBC Red Blood Cell Count 3.72 M/uL (3.86-4.86)
[2017-11-12 11:33] LABS: Albumin 3.1 g/dL (3.4-5.0); Bilirubin Total 0.8 mg/dL (0.2-1.0); Phosphorus 4.4 mg/dL (2.5-4.9); Potassium 4.4 mmol/L (3.5-5.1); Protein, Total 5.8 g/dL (6.4-8.2); Troponin I 0.07 ng/mL (0.0-0.045)
[2017-11-12 11:56] LABS: Ferritin 215.3 ng/mL (8-388); Folic Acid, (Folate) > 20.0 ng/mL (3.1-17.5); Transferrin 169 mg/dL (200-360)
[2017-11-12 12:25] LABS: Blood Morphology Comment NOT SEEN (NOT SEEN); Platelet Estimate ADEQ; Urine White Blood Cell Casts OK
[2017-11-12] MEDS: ALBUTEROL 2.5 MG/3 ML NEB SOL NEB PRN (13:30)
--- NOTE | 2017-11-12 13:31 | P.PN ---
Subjective Date of Service: 11/12/17 Chief Complaint: Anemia/shortness of breath Patient seen and examined at bedside with RN chair reviewed. Case discussed with nephrology and cardiology at this time. The patient complains of having some shortness of breath since last night. Denies having any chest pain or any other associated symptoms at this time. Review of Systems 10-point ROS is otherwise unremarkable Physical Examination - Vital Signs Temperature: 96.3 F Blood Pressure: 147/71 Pulse: 85 Respirations: 20 Pulse Ox (%): 98 - Physical Exam General: Alert, Oriented x2, Acute distress HEENT: Atraumatic, PERRLA, EOMI Neck: Supple, JVD not distended Respiratory: Normal air movement, Crackles/rales, Expiratory wheezes, Inspiratory wheezes Cardiovascular: Regular rate/rhythm, Normal S1 S2 Gastrointestinal: Normal bowel sounds, No tenderness Musculoskeletal: No tenderness Integumentary: No rashes Neurological: Normal speech, Normal tone, Normal affect Lymphatics: No axilla or inguinal lymphadenopathy - Studies Laboratory Data (last 24 hrs) 11/11/17 21:05: PT 12.1, INR 1.03 11/11/17 21:05: WBC 4.6, Hgb 7.7 L*, Hct 23.8 L, Plt Count 100 L 11/11/17 21:05: Sodium 131 L, Potassium 3.3 L, BUN 31 H, Creatinine 3.30 H, Glucose 140 H, Magnesium 1.8, Total Bilirubin 0.3, AST 14 L, ALT 16, Alkaline Phosphatase 65 Medications List Reviewed: Yes Assessment And Plan - Current Problems (Diagnosis) (1) Acute respiratory distress Onset Date: 10/18/17 Current Visit: No Status: Acute Plan: Acute respiratory distress most likely secondary to multifactorial reasons. Volume overload versus COPD versus anemia -currently on nasal cannula saturating 88-92% -continue to monitor closely with continuous pulse ox. 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 -patient also had diastolic dysfunction on that echo -IV Lasix at this time -cardiology consulted awaiting recommendations -patient is status post pacemaker placement (3) Chronic renal disease Onset Date: 04/24/17 Current Visit: No Status: Chronic Plan: Acute on chronic renal disease. -Patient has been steadily declining with her creatinine and her GFR -nephrology is consulted appreciated recommendations -considering dialysis at this time. Patient has been in the hospital several times for volume overload without change in her kidney status. -will follow up with nephrology in 24-48 hr Qualifiers: Chronic kidney disease stage: stage 4 (severe) Qualified Code(s): N18.4 - Chronic kidney disease, stage 4 (severe) (4) COPD (chronic obstructive pulmonary disease) Current Visit: Yes Status: Chronic Qualifiers: COPD type: chronic bronchitis Chronic bronchitis type: mixed simple and mucopurulent Qualified Code(s): J41.8 - Mixed simple and mucopurulent chronic bronchitis (5) Anemia, chronic disease Onset Date: 10/18/17 Current Visit: No Status: Chronic (6) Afib Onset Date: 10/04/14 Current Visit: No Status: Chronic Qualifiers: Atrial fibrillation type: chronic Qualified Code(s): I48.2 - Chronic atrial fibrillation (7) CAD (coronary artery disease) Onset Date: 10/04/14 Current Visit: No Status: Chronic Qualifiers: Coronary Disease-Associated Artery/Lesion type: [place] artery [place] vs. transplanted heart: [place] heart Associated angina: without angina Qualified Code(s): I25.10 - Atherosclerotic heart disease of [place] coronary artery without angina pectoris (8) GERD (gastroesophageal reflux disease) Onset Date: 06/24/17 Current Visit: No Status: Chronic Qualifiers: Esophagitis presence: without esophagitis Qualified Code(s): K21.9 - Gastro -esophageal reflux disease without esophagitis (9) History of cardiac pacemaker Onset Date: 04/24/17 Current Visit: No Status: Chronic (10) Hyperlipidemia Onset Date: 04/24/17 Current Visit: No Status: Chronic Qualifiers: Hyperlipidemia type: unspecified Qualified Code(s): E78.5 - Hyperlipidemia , unspecified (11) Hypertension Onset Date: 10/04/14 Current Visit: No Status: Chronic Qualifiers: Hypertension type: essential hypertension Qualified Code(s): I10 - Essential (primary) hypertension (12) Obesity Onset Date: 04/24/17 Current Visit: No Status: Chronic Qualifiers: (13) Obstructive sleep apnea Onset Date: 10/18/17 Current Visit: No Status: Suspected Discharge Plan: Other Plan to discharge in: 72 Hours - Code Status/Comfort Care Code Status Assessed: Yes Critical Care: No
[2017-11-12] MEDS ORDERED: EPOETIN ALFA 10,000 UNIT/ML SQ ONE ×2 (21:45→23:00)
[2017-11-12] MEDS: ATORVASTATIN 10 MG TAB PO SCH (22:32)
[2017-11-12] MEDS: CARVEDILOL 25 MG TAB PO SCH (22:33)
[2017-11-12] MEDS: MULTIVITAMIN TAB PO SCH (22:33)
--- NOTE | 2017-11-13 00:13 | CON ---
Date of Consultation: 11/12/2017 Reason For Consultation: Elevated BUN and creatinine, fluid management. History Of Present Illness: This is a pleasant 87-year-old female, well known to me from previous ad mission and from the office with significant past medical history of hypertension, coronary artery di sease complicated with congestive heart failure and diastolic dysfunction, atrial fibrillation, statu s post ICD, COPD oxygen-dependent, chronic kidney disease advanced base, currently released from the hospital with creatinine at that time 3.4 and GFR of 13. The patient went home, apparently was refer red back because of shortness of breath; and Home Health when they do lab, found to have low hemoglob in. On the presentation to the emergency room, the patient has CHF exacerbation and shortness of alok ath. The patient denied any nausea or any vomiting. Allergies: TO MUCOMYST, IODINE, CIPRO, AND PENICILLIN. Home Medications: Include albuterol, carvedilol 25 b.i.d., Plavix, losartan 100 daily, multivitamin, Norvasc, vitamin C, Lasix, and pravastatin. Past Medical History: Includes; 1.Chronic obstructive pulmonary disease. 2.Hypertension. 3.Atrial fibrillation. 4.Peripheral vascular disease. 5.Carotid stenosis. 6.Hyperlipidemia. 7.Chronic kidney disease, advanced, stage 4 or 5, secondary to cardiorenal. 8.Coronary artery disease, status post percutaneous transluminal coronary angioplasty. 9.Atrial fibrillation, complicated with congestive heart failure, diastolic and systolic, ejection f raction of 40%. Past Surgical History: Includes tonsillectomy, appendectomy, hysterectomy, bilateral carpal tunnel s urgery, and bilateral lens implant. Family History: Positive for diabetes and coronary artery disease. Social History: Ex-smoker. Denied alcohol. Denied drug abuse. Review of Systems: Head and Neck: No red eye. No ear pain. GI: No nausea. No vomiting. : No polyuria. No dysuria. No hematuria. 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 Respiratory: Has shortness of breath. Has leg swelling. Endocrine: No polydipsia. Skin: No rash. Neurologic: Alert. Nonfocal. Musculoskeletal: Has low back pain. Physical Examination: Vital Signs: When I saw the patient, the patient had a blood pressure of 128/80, pulse of 97. Chest: Crackles, bilateral. Heart: S1, S2. Systolic murmur. Abdomen: Soft, nontender. Extremities: +2 edema. Neurologic: Alert and oriented x3. Positive for tremor. Home Medications: Include pravastatin, multivitamin, losartan, Lasix, Plavix, carvedilol, vitamin C, and amlodipine. Current Medications: Include amlodipine, aspirin, atorvastatin, Plavix, Lasix, magnesium, and multiv itamin. Laboratory Data: Sodium 133, potassium 4.4, bicarb 30, BUN 32, creatinine 3.2. GFR of 14. Calcium 8.8, phosphorus 4.4, magnesium of 2. WBC 3.4, H and H , platelets of 100. That is after transf usion. ABG; pH 7.3, CO2 of 52, and O2 of 58. Urinalysis negative for infection. Assessment And Plan: 1.Acute kidney injury on advanced chronic kidney disease secondary to cardiorenal, poor perfusion, a cute tubular necrosis, and over-volume with respiratory symptoms. I am going to go ahead and increas e her Lasix to 80 mg b.i.d. We will give her 80 right now and will monitor the patient. We will go ahead discontinue losartan. I had a long discussion with the patient that if kidney function continu es to decline, the patient may need renal replacement therapy. The patient agreed. If she needed to initiate dialysis, we are going to try with the diuresis in the next 24 hours and will follow up the patient closely. 2.Hypertension, currently controlled, optimal with the presence of acute kidney injury and congestiv e heart failure. I will rather utilize the blood pressure for more diuresis. Discontinue amlodipine . Increase Lasix to b.i.d. 80 mg. We will go ahead and place the patient on nitroglycerin patch. D iscontinue losartan. 3.Acidosis, resolved. Continue diuresis. 4.Hypercapnic respiratory failure. Continue breathing treatment. 5.Anemia secondary to chronic kidney disease, status post transfusion. I am going to go ahead and s tart the patient on Epogen, and we will follow up the patient. 6.Congestive heart failure secondary to renal failure and coronary artery disease with exacerbation. I am going to diurese the patient, place the patient on nitroglycerin patch, discontinue losartan, and increase Lasix. 7.Diabetes, as by primary. Thank you, Dr. Cueto, for allowing us to participate in the care of your patient. MA/MODL Voice ID: [id number] Report ID: [id number]
[2017-11-13] MEDS: IPRATROPIUM BROM 0.5MG/2.5ML NEB SCH ×4 (02:04→19:27)
[2017-11-13] MEDS ORDERED: VANCOMYCIN 1 GM/VIAL ONE (02:49)
[2017-11-13] MEDS ORDERED: NA CHLORIDE 0.9% 0 ML ONE (02:49)
[2017-11-13 04:51] LABS: Albumin 2.7 g/dL (3.4-5.0); Phosphorus 3.6 mg/dL (2.5-4.9); Potassium 3.6 mmol/L (3.5-5.1)
[2017-11-13] MEDS: CLOPIDOGREL 75 MG TABLET PO SCH (09:00)
[2017-11-13] MEDS ORDERED: POTASSIUM 25 MEQ EFFERV TAB PO ONE (09:00)
[2017-11-13] MEDS ORDERED: HOME MED 1 EA UNK (Pravastatin Sodium [Pravachol] 80 MG) PO SCH (09:00)
[2017-11-13] MEDS: ASPIRIN 81 MG CHEWABLE TABLET PO SCH (09:00)
[2017-11-13] MEDS ORDERED: AMLODIPINE 10 MG TAB PO SCH (09:00)
[2017-11-13] MEDS ORDERED: ASCORBIC ACID 250 MG PO SCH (09:00)
[2017-11-13] MEDS: NITROGLYCERIN 0.2 MG/HR (5 MG) PATCH TD SCH (09:26)
[2017-11-13] MEDS: ASCORBIC ACID 500 MG TABLET PO SCH (09:26)
[2017-11-13] MEDS: FERROUS SULFATE 325 MG TAB PO SCH (09:27)
[2017-11-13] MEDS: CARVEDILOL 25 MG TAB PO SCH ×2 (09:27→21:32)
[2017-11-13] MEDS: FUROSEMIDE 40 MG/4 ML VIAL IV SCH ×2 (09:28→17:27)
[2017-11-13] MEDS: HEPARIN 5000 UNIT/ML 1 ML VIAL SQ SCH ×2 (09:28→21:00)
[2017-11-13] MEDS: ALBUTEROL 2.5 MG/3 ML NEB SOL NEB PRN (09:47)
--- NOTE | 2017-11-13 11:24 | RAD REPORT ---
EXAM DESCRIPTION: RAD - Chest Single View - 11/13/2017 11:08 am CLINICAL HISTORY: COPD, CHF Chest pain. COMPARISON: Chest Single View dated 11/11/2017; Chest Single View dated 10/18/2017; Chest Single View dated 10/15/2017; Chest Single View dated 09/07/2017 FINDINGS: Portable technique limits examination quality. The lungs are grossly clear. The heart is moderately enlarged in size with a dual lead pacer device p resent. No displaced fractures.Aortic atherosclerosis. IMPRESSION: No acute intrathoracic process suspected.
--- NOTE | 2017-11-13 12:07 | P.PN ---
Subjective Date of Service: 11/13/17 Chief Complaint: Anemia/shortness of breath Patient seen and examined at bedside with RN chair reviewed. Case discussed with nephrology and cardiology at this time. Denies having any chest pain or any other associated symptoms at this time.Scheduled for HD cath placement deyanira Review of Systems 10-point ROS is otherwise unremarkable Physical Examination - Vital Signs Temperature: 97.5 F Blood Pressure: 124/56 Pulse: 85 Respirations: 24 Pulse Ox (%): 97 - Physical Exam General: Alert, In no apparent distress, Mild distress HEENT: Atraumatic, PERRLA, EOMI Neck: Supple, JVD not distended Respiratory: Normal air movement, Crackles/rales, Expiratory wheezes, Inspiratory wheezes Cardiovascular: Regular rate/rhythm, Normal S1 S2 Gastrointestinal: Normal bowel sounds, No tenderness Musculoskeletal: No tenderness Integumentary: No rashes Neurological: Normal speech, Normal tone, Normal affect Lymphatics: No axilla or inguinal lymphadenopathy - Studies Medications List Reviewed: Yes Assessment And Plan - Current Problems (Diagnosis) (1) Acute respiratory distress Onset Date: 10/18/17 Current Visit: No Status: Acute Plan: Acute respiratory distress most likely secondary to multifactorial reasons. Volume overload versus COPD versus anemia -currently on nasal cannula saturating 88-92% -continue to monitor closely with continuous pulse ox. 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 -patient also had diastolic dysfunction on that echo -IV Lasix at this time -cardiology consulted Recc Appreciated. -patient is status post pacemaker placement (3) Chronic renal disease Onset Date: 04/24/17 Current Visit: No Status: Chronic Plan: Acute on chronic renal disease. -Patient has been steadily declining with her creatinine and her GFR -nephrology consulted. Reccs appreciated. -Scheduled for HD cath deyanira in AM Qualifiers: Chronic kidney disease stage: stage 4 (severe) Qualified Code(s): N18.4 - Chronic kidney disease, stage 4 (severe) (4) COPD (chronic obstructive pulmonary disease) Current Visit: Yes Status: Chronic Qualifiers: COPD type: chronic bronchitis Chronic bronchitis type: mixed simple and mucopurulent Qualified Code(s): J41.8 - Mixed simple and mucopurulent chronic bronchitis (5) Anemia, chronic disease Onset Date: 10/18/17 Current Visit: No Status: Chronic (6) Afib Onset Date: 10/04/14 Current Visit: No Status: Chronic Qualifiers: Atrial fibrillation type: chronic Qualified Code(s): I48.2 - Chronic atrial fibrillation (7) CAD (coronary artery disease) Onset Date: 10/04/14 Current Visit: No Status: Chronic Qualifiers: Coronary Disease-Associated Artery/Lesion type: [place] artery [place] vs. transplanted heart: [place] heart Associated angina: without angina Qualified Code(s): I25.10 - Atherosclerotic heart disease of [place] coronary artery without angina pectoris (8) GERD (gastroesophageal reflux disease) Onset Date: 06/24/17 Current Visit: No Status: Chronic Qualifiers: Esophagitis presence: without esophagitis Qualified Code(s): K21.9 - Gastro -esophageal reflux disease without esophagitis (9) History of cardiac pacemaker Onset Date: 04/24/17 Current Visit: No Status: Chronic (10) Hyperlipidemia Onset Date: 04/24/17 Current Visit: No Status: Chronic Qualifiers: Hyperlipidemia type: unspecified Qualified Code(s): E78.5 - Hyperlipidemia , unspecified (11) Hypertension Onset Date: 10/04/14 Current Visit: No Status: Chronic Qualifiers: Hypertension type: essential hypertension Qualified Code(s): I10 - Essential (primary) hypertension (12) Obesity Onset Date: 04/24/17 Current Visit: No Status: Chronic Qualifiers: (13) Obstructive sleep apnea Onset Date: 10/18/17 Current Visit: No Status: Suspected Discharge Plan: Home Plan to discharge in: 48 Hours - Code Status/Comfort Care Code Status Assessed: Yes Critical Care: No
--- NOTE | 2017-11-13 13:14 | CON ---
Date of Consultation: 11/12/2017 Ms. Thakkar was admitted on 11/11/[address] Wilson. I saw the patient on 11/12/2017. Reason For Consultation: Congestive heart failure exacerbation. History Of Present Illness: Ms. Thakkar is 87. This is 1 of multiple admissions for her congestive h eart failure. She came in basically complaining of shortness of breath, PND and pedal edema. Denied any chest pain, nausea, vomiting, diaphoresis. Denied any syncope. Denied any fever or chills. Sh gaurang was found to be anemic. Had a hemoglobin of 7.7. She has already received 2 units of blood and wa s feeling better. Past Medical History: 1.Include systolic congestive heart failure with an ejection fraction of 40% by recent echo. 2.Anemia. 3.Hypertension. 4.Diabetes. 5.Dyslipidemia. 6.CAD. 7.COPD. 8.Renal insufficiency. 9.Pacemaker placement. Review of Systems: Negative. Social History: Negative. She is a patient of Dr. Galan. Family History: Noncontributory. Allergies: SHE IS ALLERGIC TO IODINE, PENICILLIN, CIPRO, AND MUCOMYST. Medications At Home: Include inhalers, Norvasc, aspirin, Plavix, Coreg, Lasix, Cozaar, and Pravachol . Physical Examination: General: She was in mild respiratory distress. Vital Signs: Stable. She was in a paced rhythm. Afebrile. HEENT: Negative. Neck: Supple without any lymphadenopathy, JVD, thyromegaly, or bruit. Chest: Reveals rales with wheezing in both lung. Cardiac: Revealed a regular rhythm and rate. No murmurs, gallops, or rubs. Abdomen: Benign. Extremities: Revealed 1+ edema. Diagnostic Data: Her hemoglobin was 7.7, creatinine is 3.3, platelet count 100,000. Potassium 3.3. EKG is paced rhythm. Chest x-ray is negative. Impression And Plan: 1.Acute exacerbation of chronic systolic congestive heart failure. Ejection fraction 49%. Recent e cho. No need for repeat any workup. Continue present regimen. Consider stopping the Cozaar because of her renal insufficiency. Watch I's and O's and weights. 2.Hypokalemia. 3.Renal insufficiency, stage 4. 4.Anemia, status post 2 units. 5.Chronic obstructive pulmonary disease exacerbation. 6.Hypertension, well controlled. 7.Allergy to Iodine. 8.Status post pacemaker placement. 9.Diabetes, well controlled. 10.Thrombocytopenia. Continue the present regimen. As stated earlier, I think she would be better off the Cozaar. She needs her chronic obstructive pulmonary disease treated. IV Lasix for the conge stive heart failure. She has outpatient followup with Dr. Galan after her discharge. She can go h ome whenever it is okay with Dr. Wilson. MISSY/ADITI Voice ID: [id number] Report ID: [id number]
--- NOTE | 2017-11-13 15:02 | CON ---
Date of Consultation: 11/13/2017 Brief History Of Present Illness: The patient is an 87-year-old female, who came in the [facility] with anemia. She was seen by home health agency who lynn her labs and noted her hemoglobin wa s very low. She came to the emergency room for further evaluation. She was found to be short of alok ath with history of CHF with ejection fraction 40%, so it is declining from a few months ago. She martin s a history of coronary artery disease, carotid artery disease and atrial fibrillation with pacemaker . She also has a carotid stent by her report. Her renal function has been poor for many months. Moiz merlos sees Nephrology. COPD has been worsening and she has been struggling with respiratory and cardiac issues for quite some time. I am consulted to see her for placement of a tunneled hemodialysis bibiana ter. Past Medical History: Significant for COPD, oxygen dependent, hypertension, atrial fibrillation with pacemaker, GERD, chronic anemia, coronary artery disease, peripheral vascular disease, carotid arter y disease, hyperlipidemia. Past Surgical History: Includes pacemaker, carotid artery stents, both of these were greater than 10 years ago by her report, kidney renal artery stents, and stents to bilateral femoral arteries, bilat eral lens implants, bilateral carpal tunnel repair, hysterectomy, appendectomy, tonsillectomy. Allergies: TO MUCOMYST/ACETYLCYSTEINE IV CONTRAST, CIPRO, AND PENICILLIN. Home Medications: Include albuterol, carvedilol, Plavix, ferrous sulfate, losartan, multivitamin, am lodipine, vitamin C, aspirin, Lasix, Pravachol. Social History: She is a former smoker. She denies alcohol or recreational drug use. Review of Systems: A 10-point review of systems other than HPI, she denies. Physical Examination: General: At the time examination, she is awake, alert, and oriented. She is on supplemental oxygen, breathing easily at the time. 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 Neck: Supple with without JVD. Her oropharynx is clear. Her mucous membranes are moist. Chest: She has a pacemaker in place on her chest, but otherwise normal expansion. There were no obv ious scars on the chest wall from any surgical intervention. Abdomen: Soft. Extremities: No clubbing, cyanosis, or edema apparent. Laboratory Data: Reveals a white blood cell count of 3.4, hemoglobin 11.0 over hematocrit 33.0. Hyun telet count is 100. Neutrophils are 91%. Her coags showed a PT of 12.1, INR of 1.03. Her chemistry showed a sodium 136, potassium 3.6, chloride of 96, carbon dioxide 32, BUN 36, creatinine 3.2. Her estimated GFR is 14, glucose is 124, calcium 8.6. Her phos is 3.6. Her troponin I is 0.07 on 11/12, and 0.09 on 11/12 on second check. Her proBNP was 08576. Her vitamin B12 was 1556, folate was grea ter than 20. She had imaging which included a chest x-ray, which was officially read as no acute abn ormalities displayed. Assessment And Plan: This is an 87-year-old female with worsening renal function, who now is in need of dialysis. I have explained the risks, benefits, and alternatives of placement of a tunneled hemodialysis cathet er, likely in the internal jugular position with micro introducer set and ultrasound guidance. I hav e explained that she is at increased risk for bleeding complications as she is on several blood thinn ers, those do include aspirin, Plavix, and she receives subcu heparin. These will be held prior to s ritesh, although the effect will still be in her system and as such she will be anticoagulated for th e most part with the anti-platelet drugs as described and as such she will be at increased risk for b leeding as described. Therefore, I will make an attempt to the jugular vein for placement of a tunne led hemodialysis catheter. I have also explained the other risks which include infection, damage to surrounding tissue, pneumothorax or collapsed lung, blood clots, stroke, DE, difficulty with ventilat ion, respiratory failure, and need for further operations or procedures. We will plan for surgery to carlin. We will make her n.p.o. after midnight and hold the heparin and other anticoagulants until a fter surgery and we will reinitiate them at that time. Thank you for this interesting consult. NEVILLE/ADITI Voice ID: [id number] Report ID: [id number]
[2017-11-13] MEDS: MULTIVITAMIN TAB PO SCH (21:31)
[2017-11-13] MEDS: ATORVASTATIN 10 MG TAB PO SCH (21:31)
[2017-11-14] MEDS: IPRATROPIUM BROM 0.5MG/2.5ML NEB SCH ×4 (01:24→20:00)
--- NOTE | 2017-11-14 01:30 | PN ---
Date of Progress Note: 11/13/2017 Subjective: The patient is still complaining from shortness of breath yesterday. We have been diure sing her aggressively. Had good urine output, but is still over-volume. Physical Examination: Vital Signs: Blood pressure 143/73, pulse of 100, afebrile. Chest: Wheezing bilaterally. Crackles bilaterally. Heart: S1, S2. Systolic murmur. Abdomen: Soft, nontender. Extremities: +1 edema. Laboratory Data: WBC 3.4, H and H 11/33, and platelets of 100. Sodium 136, potassium 3.6, bicarb 32 , BUN 36, creatinine 3.2, calcium 8.6, phosphorus 3.6. GFR of 14. BNP 76830. Albumin 2.7. Correct ed calcium is 10. B12 of 1500. Folate more than 20. Current Medications: The patient is on include; 1.Aspirin. 2.Epogen. 3.Oral iron. 4.Carvedilol 25 b.i.d. 5.Lasix 80 b.i.d. 6.Magnesium oxide. 7.Vitamin C. 8.Multivitamin. Assessment And Plan: 1.Acute kidney injury, on chronic kidney disease and progression to end-stage renal disease, nonolig uric, over-volume. I had long discussion with the patient regarding the condition and needing to be started on renal replacement therapy. The patient agreed on the plan. We are going to go ahead and get Surgery for catheter placement. Then, we will initiate dialysis. 2.Hypertension, controlled. We will keep utilizing the blood pressure for more diuresis. 3.Anemia of chronic kidney disease, started on Epogen. 4.Chronic obstructive pulmonary disease exacerbation as by Primary and Pulmonary. 5.Congestive heart failure. We will continue diuresis. JESSICA/MODL Voice ID: [id number] Report ID: [id number]
[2017-11-14 06:14] LABS: Protime INR 1.03
[2017-11-14 06:40] LABS: Albumin 2.7 g/dL (3.4-5.0); Phosphorus 3.3 mg/dL (2.5-4.9); Potassium 3.6 mmol/L (3.5-5.1)
[2017-11-14] MEDS: ASPIRIN 81 MG CHEWABLE TABLET PO SCH (07:28)
[2017-11-14] MEDS: CLOPIDOGREL 75 MG TABLET PO SCH (07:29)
[2017-11-14] MEDS: HEPARIN 5000 UNIT/ML 1 ML VIAL SQ SCH ×2 (07:29→22:33)
[2017-11-14] MEDS: ALBUTEROL 2.5 MG/3 ML NEB SOL NEB PRN ×2 (08:00→15:00)
[2017-11-14] MEDS: CARVEDILOL 25 MG TAB PO SCH ×2 (08:37→22:32)
[2017-11-14] MEDS: NITROGLYCERIN 0.2 MG/HR (5 MG) PATCH TD SCH (09:00)
[2017-11-14] MEDS ORDERED: POTASSIUM CL SA 10 MEQ TAB PO ONE (09:00)
[2017-11-14] MEDS: FUROSEMIDE 40 MG/4 ML VIAL IV SCH ×2 (09:00→17:00)
[2017-11-14] MEDS ORDERED: NA CHLORIDE 0.9% 500 ML ONE (10:51)
[2017-11-14] MEDS: Levofloxacin500mg IV 500 MG/100 ML BAG IV SCH (11:00)
[2017-11-14] MEDS ORDERED: HEPARIN 5000 UNIT/ML 1 ML VIAL ONE (11:11)
[2017-11-14] MEDS ORDERED: BUPIVACA 0.5%/EPI 0.0005%/PF 30 ML VIAL ONE (11:11)
[2017-11-14] MEDS ORDERED: NA CHLORIDE 0.9% 50 ML ONE (11:11)
[2017-11-14] MEDS ORDERED: Levofloxacin500mg IV 500 MG/100 ML BAG IV ONE (11:16)
[2017-11-14] MEDS ORDERED: FENTANYL CITR 100 MCG/2 ML ONE (11:27)
[2017-11-14] MEDS ORDERED: PROPOFOL 200 MG/20 ML VIAL IV ONE (11:27)
[2017-11-14] MEDS ORDERED: LIDOCAINE 2% MPF 5 ML VIAL ONE (11:27)
[2017-11-14] MEDS ORDERED: MIDAZOLAM HCL 2 MG/2 ML INJ ONE (11:27)
--- NOTE | 2017-11-14 12:08 | P.OP ---
Preoperative diagnosis: End Stage Renal Disease Postoperative diagnosis: End Stage Renal Disease Primary procedure: Placement of tunnelled LEFT Internal Jugular HD catheter Secondary procedure: Ultrasound guidance and micro-introducer used Anesthesia: local Estimated blood loss: <10cc Specimen: None Findings: Dark, Non-pulsatile blood returned Complications: None Implants: 24 cm tunnelled hemodialysis catheter Transferred to: Recovery Room Condition: Good
--- NOTE | 2017-11-14 12:24 | P.PN ---
Subjective Date of Service: 11/14/17 Chief Complaint: Anemia/shortness of breath Patient seen and examined at bedside with RN chair reviewed. Case discussed with nephrology and cardiology at this time. Denies having any chest pain or any other associated symptoms at this time.Scheduled for HD cath placement today Review of Systems 10-point ROS is otherwise unremarkable Physical Examination - Vital Signs Temperature: 97.7 F Blood Pressure: 157/88 Pulse: 84 Respirations: 18 Pulse Ox (%): 95 - Physical Exam General: Alert, In no apparent distress HEENT: Atraumatic, PERRLA, EOMI Neck: Supple, JVD not distended Respiratory: Clear to auscultation bilaterally, Normal air movement Cardiovascular: Regular rate/rhythm, Normal S1 S2 Gastrointestinal: Normal bowel sounds, No tenderness Musculoskeletal: No tenderness Integumentary: No rashes Neurological: Normal speech, Normal tone, Normal affect Lymphatics: No axilla or inguinal lymphadenopathy - Studies Laboratory Data (last 24 hrs) 11/14/17 05:15: PT 12.1, INR 1.03 11/14/17 05:15: Sodium 134 L, Potassium 3.6, BUN 40 H, Creatinine 3.20 H, Glucose 103, Phosphorus 3.3 Medications List Reviewed: Yes Assessment And Plan - Current Problems (Diagnosis) (1) Acute respiratory distress Onset Date: 10/18/17 Current Visit: No Status: Acute Plan: Acute respiratory distress most likely secondary to multifactorial reasons. Volume overload versus COPD versus anemia -currently on nasal cannula saturating 88-92% -continue to monitor closely with continuous pulse ox. 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 -patient also had diastolic dysfunction on that echo -cardiology consulted Recc Appreciated. -patient is status post pacemaker placement -Switch to PO lasix (3) Chronic renal disease Onset Date: 04/24/17 Current Visit: No Status: Chronic Plan: Acute on chronic renal disease. -Patient has been steadily declining with her creatinine and her GFR -nephrology consulted. Reccs appreciated. -Scheduled for HD cath today in AM Qualifiers: Chronic kidney disease stage: stage 4 (severe) Qualified Code(s): N18.4 - Chronic kidney disease, stage 4 (severe) (4) COPD (chronic obstructive pulmonary disease) Onset Date: 11/14/17 Current Visit: Yes Status: Chronic Qualifiers: COPD type: chronic bronchitis Chronic bronchitis type: mixed simple and mucopurulent Qualified Code(s): J41.8 - Mixed simple and mucopurulent chronic bronchitis (5) Anemia, chronic disease Onset Date: 10/18/17 Current Visit: No Status: Chronic (6) Afib Onset Date: 10/04/14 Current Visit: No Status: Chronic Qualifiers: Atrial fibrillation type: chronic Qualified Code(s): I48.2 - Chronic atrial fibrillation (7) CAD (coronary artery disease) Onset Date: 10/04/14 Current Visit: No Status: Chronic Qualifiers: Coronary Disease-Associated Artery/Lesion type: [place] artery [place] vs. transplanted heart: [place] heart Associated angina: without angina Qualified Code(s): I25.10 - Atherosclerotic heart disease of [place] coronary artery without angina pectoris (8) GERD (gastroesophageal reflux disease) Onset Date: 06/24/17 Current Visit: No Status: Chronic Qualifiers: Esophagitis presence: without esophagitis Qualified Code(s): K21.9 - Gastro -esophageal reflux disease without esophagitis (9) History of cardiac pacemaker Onset Date: 04/24/17 Current Visit: No Status: Chronic (10) Hyperlipidemia Onset Date: 04/24/17 Current Visit: No Status: Chronic Qualifiers: Hyperlipidemia type: unspecified Qualified Code(s): E78.5 - Hyperlipidemia , unspecified (11) Hypertension Onset Date: 10/04/14 Current Visit: No Status: Chronic Qualifiers: Hypertension type: essential hypertension Qualified Code(s): I10 - Essential (primary) hypertension Discharge Plan: Home Plan to discharge in: 48 Hours - Code Status/Comfort Care Code Status Assessed: Yes Critical Care: No
--- NOTE | 2017-11-14 12:47 | RAD REPORT ---
EXAM DESCRIPTION: RAD - Chest Single View - 11/14/2017 12:41 pm CLINICAL HISTORY: Hemodialysis catheter placement, post procedure examination COMPARISON: November 13 TECHNIQUE: AP portable chest image was obtained 1226 hours . FINDINGS: Left-sided tunneled hemodialysis catheter is in place. Long arm of the catheter is mid SVC . Short arm is proximal SVC. Lung roldan show no new or progressive finding from prior day study. Rig ht-sided pacemaker remains in place. Chronic interstitial in apical pleural changes noted. Heart and vasculature are normal. No measurable pleural effusion and no pneumothorax. No gross bony abnormality seen. No acute aortic findings suspected. IMPRESSION: Left-sided tunneled hemodialysis catheter in place in good position. No pneumothorax.
--- NOTE | 2017-11-14 12:59 | RAD REPORT ---
EXAM DESCRIPTION: RAD - Fluoroscopy <1 Hour - 11/14/2017 12:52 pm CLINICAL HISTORY: Device placement central venous catheter placement FINDINGS: A central venous catheter was placed into the superior vena cava. Multiple fluoroscopic sp ot images are submitted. The examination was performed by Fluoroscopy time 2 seconds. Six fluoroscopic spot images were obtained
--- NOTE | 2017-11-14 15:09 | PN ---
Date of Progress Note: 11/14/2017 Subjective: The patient still have some shortness of breath but better than yesterday. Still have e rythema on the lower extremity with swelling. Physical Examination: Vital Signs: Blood pressure 157/88, pulse of 84, afebrile. The patient had urine output of 1500. Chest: Wheezing. Bilateral faint crackles on the base. Heart: S1, S2. Systolic murmur. Abdomen: Soft nontender. Extremities: +2 edema with erythema. Laboratory Data: WBC 3.4, H and H 11/33, platelet of 100, sodium 134, potassium 3.6, bicarb 33, BUN 40, creatinine 3.2, calcium 8.7, phosphorus 3.3, albumin 2.7. Corrected calcium of 10. Current Medications: Include Lasix 80 mg b.i.d., Plavix, atorvastatin, carvedilol 25 b.i.d., nitrogl ycerin, breathing treatment, KCl. Diagnostic Data: Chest x-ray, cardiomegaly with congestion. Assessment And Plan: 1.Acute kidney injury with a progression of advanced chronic kidney disease secondary to cardiorenal . The patient agreed on dialysis. We have placed a PermCath today and we will initiate dialysis. W e will challenge the patient. Continue diuresis. We will monitor. 2.The patient is wishing to be on home hemo giving the difficulty ambulating and transportation givi ng the respiratory status. I am going to go ahead and arrange for home hemodialysis. 3.Hypertension. We will keep utilizing blood pressure for more ultrafiltration and dialysis. 4.Congestive heart failure. We will try to establish better volume control. 5.Chronic obstructive pulmonary disease. Continue current treatment. 6.Cellulitis. I am going to start the patient on antibiotic. JESSICA/ADITI Voice ID: [id number] Report ID: [id number]
[2017-11-14] MEDS: ASCORBIC ACID 500 MG TABLET PO SCH (15:59)
[2017-11-14] MEDS: FERROUS SULFATE 325 MG TAB PO SCH (15:59)
[2017-11-14] MEDS: ATORVASTATIN 10 MG TAB PO SCH (22:32)
[2017-11-14] MEDS: MULTIVITAMIN TAB PO SCH (22:32)
--- NOTE | 2017-11-14 22:57 | OP ---
Date of Procedure: 11/14/2017 Surgeon: Nish Pardo MD, Postoperative Diagnosis: End-stage renal disease. Postoperative Diagnosis: End-stage renal disease. Procedure Performed: Placement of a tunneled left internal jugular hemodialysis catheter using ultrasound guidance and micro introducer set. Anesthesia: Local plus IV sedation. Estimated Blood Loss: Less than 10 cc. Specimen: None. Findings: Dark nonpulsatile blood was returned. Verification with fluoroscopy was performed. Complications: None. Implants: A 24 cm tunneled hemodialysis catheter. Disposition: Transferred to recovery room in good condition. Procedure In Detail: After informed consent was obtained, the patient was brought to the operating room, prepped and draped in the usual sterile fashion. After adequate anesthesia was achieved the ultrasound was used on the neck to visualize the jugular veins. The internal jugular vein was found to be patent. The carotid stent could easily be visualized in this area as well. The jugular vein was found to be of adequate size and position for a placement of dialysis catheter at this time. Therefore, the patient was prepped and draped in the usual sterile fashion and placed in steep Trendelenburg. At this time, the micro introducer set was used to anesthetize the tract using ultrasound guidance. I cannulated the left internal jugular vein on first attempt and a micro wire was advanced easily without evidence of complication. The blood return was dark red and nonpulsatile at this time. Fluoroscopy was used to verify position of the micro wire at the confluence of the SVC at this time. The microintroducer set was brought into the field and a small jonathan was made over the wire and the micro introducer sheath was placed over the wire at this time and the wire out was called. At this time, the standard wire was then placed through the micro introducer sheath and once again position was verified using fluoroscopy, and a wire was found to be in good anatomic position. At this time, a tract was anesthetized from the chest wall 2 fingerbreadths below the clavicle, over the clavicle, and up to the insertion site using the 0.5% Marcaine with epinephrine. After this tract was appropriately anesthetized, incision was made over the chest wall, and using a tunneling device, the catheter was passed into the insertion site without evidence of complication ensuring that the cuff was in a good anatomic position. At this time, sequential dilatation was performed over the wire using Seldinger technique and ultimately introducer sheath was placed verified with fluoroscopy once again. The wire was found to be in good position with the sheath in place. The inner cannula of the sheath was removed, and the catheter was placed through the introducer sheath in good anatomic position. The introducer sheath was then removed and fluoroscopy once again verified position of the catheter to be in good anatomic position near the confluence of the SVC. At this time, the ports were tested, and all found to be pulling dark red nonpulsatile blood and flushed quite easily and were all packed with heparin super flush 2 cc per port , and these were locked. The skin incisions were then copiously irrigated multiple times and closed with a 2-0 nylon in an interrupted fashion. The catheter was secured also with the same said 2-0 nylon. Sterile dressing was placed over top. The patient tolerated the procedure well without evidence of complication, was removed from Trendelenburg position. All counts were correct at the end of the case. The patient transferred to the PACU in good condition once again, and stat chest x-ray will be performed in the PACU to verify position as well as the catheter and look for any potential complications. NEVILLE/ADITI Voice ID: [id number] Report ID: [id number] KARLEE
[2017-11-15] MEDS: IPRATROPIUM BROM 0.5MG/2.5ML NEB SCH ×4 (01:55→20:00)
[2017-11-15 06:19] LABS: Potassium 3.8 mmol/L (3.5-5.1)
[2017-11-15 06:22] LABS: Albumin 2.5 g/dL (3.4-5.0); Potassium 3.8 mmol/L (3.5-5.1)
[2017-11-15] MEDS ORDERED: POTASSIUM CL SA 10 MEQ TAB PO ONE (06:52)
[2017-11-15] MEDS: HEPARIN 5000 UNIT/ML 1 ML VIAL SQ SCH (09:00)
[2017-11-15] MEDS: NITROGLYCERIN 0.2 MG/HR (5 MG) PATCH TD SCH (09:00)
[2017-11-15] MEDS: FUROSEMIDE 40 MG/4 ML VIAL IV SCH ×2 (09:00→17:00)
[2017-11-15] MEDS ORDERED: POTASSIUM PHOS IN 0.9 % NACL 15 MMOL/250 ML BAG IV ONE (09:00)
[2017-11-15] MEDS: CARVEDILOL 25 MG TAB PO SCH (09:00)
--- NOTE | 2017-11-15 09:05 | EKG ---
Test Date: 2017-11-15 Test Time: 03:00:23 Piercing Specialist: RT-O MEASUREMENT RESULTS: Intervals: Rate: 86 DE: 176 QRSD: 130 QT: 388 QTc: 464 [place]: P: 81 DE: 176 QRS: 12 T: 169 INTERPRETIVE STATEMENTS: Normal sinus rhythm Nonspecific intraventricular block Cannot rule out Anterior infarct, age undetermined T wave abnormality, consider inferior ischemia Abnormal ECG Compared to ECG 11/11/2017 20:30:16 questionable change in anterior lead R aves Atrial fibrillation no longer present Electronically Signed On 11-15-17 09:05:13 CDT by Maxi Burnett
[2017-11-15] MEDS: ASPIRIN 81 MG CHEWABLE TABLET PO SCH (09:29)
[2017-11-15] MEDS: FERROUS SULFATE 325 MG TAB PO SCH (09:29)
[2017-11-15] MEDS: ASCORBIC ACID 500 MG TABLET PO SCH (09:29)
[2017-11-15] MEDS: CLOPIDOGREL 75 MG TABLET PO SCH (11:51)
--- NOTE | 2017-11-15 13:12 | P.PN ---
Subjective Date of Service: 11/15/17 Primary Care Provider: Dr Sheldon - Nephrology Chief Complaint: Anemia/shortness of breath Patient seen and examined at bedside with RN chair reviewed. Case discussed with nephrology and cardiology at this time. Denies having any chest pain or any other associated symptoms at this time. S/o HD cather placement and HD yesterday Review of Systems 10-point ROS is otherwise unremarkable Physical Examination - Vital Signs Temperature: 97.3 F Blood Pressure: 156/72 Pulse: 84 Respirations: 16 Pulse Ox (%): 97 - Physical Exam General: Alert, Mild distress HEENT: Atraumatic, PERRLA, EOMI Neck: Supple, JVD not distended Respiratory: Clear to auscultation bilaterally, Normal air movement Cardiovascular: Regular rate/rhythm, Normal S1 S2 Gastrointestinal: Normal bowel sounds, No tenderness Musculoskeletal: No tenderness Integumentary: No rashes Neurological: Normal speech, Normal tone, Normal affect Lymphatics: No axilla or inguinal lymphadenopathy - Studies Medications List Reviewed: Yes Assessment And Plan - Current Problems (Diagnosis) (1) Acute respiratory distress Onset Date: 10/18/17 Current Visit: No Status: Acute Plan: Acute respiratory distress most likely secondary to multifactorial reasons. Volume overload versus COPD versus anemia -currently on nasal cannula saturating 88-92% -continue to monitor closely with continuous pulse ox. 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 -patient also had diastolic dysfunction on that echo -cardiology consulted Recc Appreciated. -patient is status post pacemaker placement -Now on HD (3) Chronic renal disease Onset Date: 04/24/17 Current Visit: No Status: Chronic Plan: Acute on chronic renal disease. -Patient has been steadily declining with her creatinine and her GFR -nephrology consulted. Reccs appreciated. -S/P perm Cath Placement. -HD in the hospital -Arrange for Chair time vs Home Dialysis Qualifiers: Chronic kidney disease stage: stage 4 (severe) Qualified Code(s): N18.4 - Chronic kidney disease, stage 4 (severe) (4) COPD (chronic obstructive pulmonary disease) Onset Date: 11/14/17 Current Visit: Yes Status: Chronic Qualifiers: COPD type: chronic bronchitis Chronic bronchitis type: mixed simple and mucopurulent Qualified Code(s): J41.8 - Mixed simple and mucopurulent chronic bronchitis (5) Anemia, chronic disease Onset Date: 10/18/17 Current Visit: No Status: Chronic (6) Afib Onset Date: 10/04/14 Current Visit: No Status: Chronic Qualifiers: Atrial fibrillation type: chronic Qualified Code(s): I48.2 - Chronic atrial fibrillation (7) CAD (coronary artery disease) Onset Date: 10/04/14 Current Visit: No Status: Chronic Qualifiers: Coronary Disease-Associated Artery/Lesion type: [place] artery [place] vs. transplanted heart: [place] heart Associated angina: without angina Qualified Code(s): I25.10 - Atherosclerotic heart disease of [place] coronary artery without angina pectoris (8) GERD (gastroesophageal reflux disease) Onset Date: 06/24/17 Current Visit: No Status: Chronic Qualifiers: Esophagitis presence: without esophagitis Qualified Code(s): K21.9 - Gastro -esophageal reflux disease without esophagitis (9) History of cardiac pacemaker Onset Date: 04/24/17 Current Visit: No Status: Chronic (10) Hyperlipidemia Onset Date: 04/24/17 Current Visit: No Status: Chronic Qualifiers: Hyperlipidemia type: unspecified Qualified Code(s): E78.5 - Hyperlipidemia , unspecified (11) Hypertension Onset Date: 10/04/14 Current Visit: No Status: Chronic Qualifiers: Hypertension type: essential hypertension Qualified Code(s): I10 - Essential (primary) hypertension Discharge Plan: Home Plan to discharge in: 48 Hours - Code Status/Comfort Care Code Status Assessed: Yes Critical Care: No
[2017-11-15] MEDS: Levofloxacin500mg IV 500 MG/100 ML BAG IV SCH (14:21)
[2017-11-15] MEDS ORDERED: ALBUMIN HUMAN 25% 50 ML IV SCH (15:00)
--- NOTE | 2017-11-15 15:00 | EKG ---
Test Date: 2017-11-15 Test Time: 13:00:48 Geoscientist: EPIFANIO/S MEASUREMENT RESULTS: Intervals: Rate: 83 [place]: 150 QRSD: 124 QT: 378 QTc: 444 [place]: P: 63 [place]: 150 QRS: 32 T: 181 INTERPRETIVE STATEMENTS: Normal sinus rhythm Possible Anterior infarct, age undetermined ST abnormality, possible inferior subendocardial injury Abnormal ECG Compared to ECG 11/15/2017 03:00:23 no significant change from previous ECG Electronically Signed On 11-15-17 14:59:31 CDT by Maxi Burnett
[2017-11-15] MEDS ORDERED: PNEUMOCOCCAL VACCINE 0.5 ML IMVAC ONE (17:00)
--- NOTE | 2017-11-15 22:45 | PN ---
Date of Progress Note: 11/15/2017 Subjective: The patient is status post Perm-A-Cath yesterday and initiated dialysis. According to h er, she is still have shortness breath, but much better than yesterday. Her swelling has been subsid ed. Physical Examination: Vital Signs: When I saw the patient, blood pressure of 136/63, pulse of 80, and afebrile. Chest: Wheezing bilateral. Heart: S1, S2. Systolic murmur. Abdomen: Soft, nontender. Extremities: A +2 edema, erythema, bilateral leg. Laboratory Data: H and H , WBC 3.4. Sodium 139, potassium 3.8, bicarb 33, BUN 24, creatinine 2 .2, calcium 8.6, and phos of 2. Current Medications: The patient on include carvedilol 12.5, vitamin C, Plavix, nitroglycerin patch, Levaquin 500, and Zofran. Assessment And Plan: 1.End-stage renal disease secondary to cardiorenal over volume. Started on dialysis. I am going to do another session of dialysis today. We will challenge the patient and we will follow up. 2.Hypertension. We will try to utilize the blood pressure for more ultrafiltration. Decreased carv edilol. Decreased nitroglycerin. 3.COPD exacerbation. Continue current treatment. 4.Cellulitis, lower extremity. Continue Levaquin. JESSICA/ADITI Voice ID: [id number] Report ID: [id number]
[2017-11-15] MEDS: ATORVASTATIN 10 MG TAB PO SCH (23:10)
[2017-11-15] MEDS: MULTIVITAMIN TAB PO SCH (23:10)
[2017-11-16] MEDS: IPRATROPIUM BROM 0.5MG/2.5ML NEB SCH ×4 (01:07→20:05)
[2017-11-16 06:51] LABS: Albumin 2.9 g/dL (3.4-5.0); Phosphorus 2.1 mg/dL (2.5-4.9); Potassium 4.2 mmol/L (3.5-5.1)
[2017-11-16] MEDS: FERROUS SULFATE 325 MG TAB PO SCH (09:18)
[2017-11-16] MEDS: ASPIRIN 81 MG CHEWABLE TABLET PO SCH (09:18)
[2017-11-16] MEDS: ASCORBIC ACID 500 MG TABLET PO SCH (09:18)
[2017-11-16] MEDS: CLOPIDOGREL 75 MG TABLET PO SCH (09:18)
[2017-11-16] MEDS: Levofloxacin500mg IV 500 MG/100 ML BAG IV SCH (11:18)
--- NOTE | 2017-11-16 12:28 | PN ---
Date of Progress Note: 11/16/2017 Subjective: The patient doing much better. According to her, her shortness of breath has been subsi ded significantly. Still requiring oxygen. Physical Examination: Vital Signs: Blood pressure of 143/80, pulse of 85, afebrile. The patient down in her weight to 127 . The patient lost 10 pounds from the 26. Since started on dialysis. Chest: Faint rales on the left base. Abdomen: Soft, nontender. Heart: S1, S2. Systolic murmur. Extremities: +1 edema, but started having wrinkles. Erythema has been subsided. Neuro: Alert and oriented x3. No focal. Laboratory Data: WBC 3.4, H and H /. Sodium 141, potassium 4.2, bicarb 33, BUN 13, creatinine 1 .7, calcium 8.3, phosphorus 2.1, albumin 2.9. Corrected calcium of 9.1. Medications: Current medications the patient on its include: 1.Aspirin. 2.Levaquin 500 daily. 3.Plavix. 4.Iron sulfate. 5.Vitamin C. 6.Multivitamin. 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 Continue dialysis. I am going to skip dialysis today. We will arrange for the dialysis Saturday, and we will follow up the patient. 2.Hypertension, controlled, optimal off blood pressure medication. We will utilize blood pressure f or more ultrafiltration. 3.Anemia of chronic kidney disease. No need for ROMELIA. 4.Secondary hyperparathyroidism and phosphorus on the goal. 5.Cellulitis. Continue Levaquin. Culture still negative. 6.Chronic obstructive pulmonary disease. Continue current treatment. 7.Congestive heart failure. We will try to establish better volume control with the dialysis. JESSICA/ADITI Voice ID: [id number] Report ID: [id number]
--- NOTE | 2017-11-16 12:33 | P.PN ---
Subjective Date of Service: 11/16/17 Primary Care Provider: Dr Sheldon - Nephrology Chief Complaint: Anemia/shortness of breath Patient seen and examined at bedside with RN chair reviewed. Case discussed with nephrology and cardiology at this time. Denies having any chest pain or any other associated symptoms at this time. S/p HD cather placement Review of Systems 10-point ROS is otherwise unremarkable Physical Examination - Vital Signs Temperature: 98.0 F Blood Pressure: 140/79 Pulse: 85 Respirations: 22 Pulse Ox (%): 94 - Physical Exam General: Alert, In no apparent distress HEENT: Atraumatic, PERRLA, EOMI Neck: Supple, JVD not distended Respiratory: Clear to auscultation bilaterally, Normal air movement Cardiovascular: Regular rate/rhythm, Normal S1 S2 Gastrointestinal: Normal bowel sounds, No tenderness Musculoskeletal: No tenderness Integumentary: No rashes Neurological: Normal speech, Normal tone, Normal affect Lymphatics: No axilla or inguinal lymphadenopathy - Studies Medications List Reviewed: Yes Assessment And Plan - Current Problems (Diagnosis) (1) Acute respiratory distress Onset Date: 10/18/17 Current Visit: No Status: Acute Plan: Acute respiratory distress most likely secondary to multifactorial reasons. Volume overload versus COPD versus anemia -currently on nasal cannula saturating 88-92% -continue to monitor closely with continuous pulse ox. 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 -patient also had diastolic dysfunction on that echo -cardiology consulted Recc Appreciated. -patient is status post pacemaker placement -Now on HD (3) Chronic renal disease Onset Date: 04/24/17 Current Visit: No Status: Chronic Plan: Acute on chronic renal disease. -Patient has been steadily declining with her creatinine and her GFR -nephrology consulted. Reccs appreciated. -S/P perm Cath Placement. -HD in the hospital -Arrange for Chair time vs Home Dialysis Qualifiers: Chronic kidney disease stage: stage 4 (severe) Qualified Code(s): N18.4 - Chronic kidney disease, stage 4 (severe) (4) COPD (chronic obstructive pulmonary disease) Onset Date: 11/14/17 Current Visit: Yes Status: Chronic Qualifiers: COPD type: chronic bronchitis Chronic bronchitis type: mixed simple and mucopurulent Qualified Code(s): J41.8 - Mixed simple and mucopurulent chronic bronchitis (5) Anemia, chronic disease Onset Date: 10/18/17 Current Visit: No Status: Chronic (6) Afib Onset Date: 10/04/14 Current Visit: No Status: Chronic Qualifiers: Atrial fibrillation type: chronic Qualified Code(s): I48.2 - Chronic atrial fibrillation (7) CAD (coronary artery disease) Onset Date: 10/04/14 Current Visit: No Status: Chronic Qualifiers: Coronary Disease-Associated Artery/Lesion type: [place] artery [place] vs. transplanted heart: [place] heart Associated angina: without angina Qualified Code(s): I25.10 - Atherosclerotic heart disease of [place] coronary artery without angina pectoris (8) GERD (gastroesophageal reflux disease) Onset Date: 06/24/17 Current Visit: No Status: Chronic Qualifiers: Esophagitis presence: without esophagitis Qualified Code(s): K21.9 - Gastro -esophageal reflux disease without esophagitis (9) History of cardiac pacemaker Onset Date: 04/24/17 Current Visit: No Status: Chronic (10) Hyperlipidemia Onset Date: 04/24/17 Current Visit: No Status: Chronic Qualifiers: Hyperlipidemia type: unspecified Qualified Code(s): E78.5 - Hyperlipidemia , unspecified (11) Hypertension Onset Date: 10/04/14 Current Visit: No Status: Chronic Qualifiers: Hypertension type: essential hypertension Qualified Code(s): I10 - Essential (primary) hypertension Discharge Plan: Home Plan to discharge in: 48 Hours - Code Status/Comfort Care Code Status Assessed: Yes Critical Care: No
[2017-11-16 15:11] LABS: Hepatitis C Virus RNA (PCR)log <1.18 log IU/mL
[2017-11-16] MEDS: ATORVASTATIN 10 MG TAB PO SCH (20:55)
[2017-11-16] MEDS: MULTIVITAMIN TAB PO SCH (20:55)
[2017-11-17] MEDS: IPRATROPIUM BROM 0.5MG/2.5ML NEB SCH ×4 (01:35→20:45)
[2017-11-17 06:26] LABS: Albumin 2.7 g/dL (3.4-5.0); Phosphorus 2.3 mg/dL (2.5-4.9); Potassium 4.5 mmol/L (3.5-5.1)
[2017-11-17] MEDS: ASCORBIC ACID 500 MG TABLET PO SCH (09:37)
[2017-11-17] MEDS: POTASS/SODIUM PHOSPHATE 1 PKT POWD.PACK PO SCH ×3 (09:37→11:30)
[2017-11-17] MEDS: ASPIRIN 81 MG CHEWABLE TABLET PO SCH (09:37)
[2017-11-17] MEDS: CLOPIDOGREL 75 MG TABLET PO SCH (09:37)
[2017-11-17] MEDS: Levofloxacin500mg IV 500 MG/100 ML BAG IV SCH (11:30)
--- NOTE | 2017-11-17 14:30 | P.PN ---
Subjective Date of Service: 11/17/17 Primary Care Provider: Dr Sheldon - Nephrology Chief Complaint: Anemia/shortness of breath Patient seen and examined at bedside with RN chair reviewed. Case discussed with nephrology and cardiology at this time. Denies having any chest pain or any other associated symptoms at this time. S/p HD cather placement Review of Systems 10-point ROS is otherwise unremarkable Physical Examination - Vital Signs Temperature: 98 F Blood Pressure: 119/61 Pulse: 96 Respirations: 16 Pulse Ox (%): 100 - Physical Exam General: Alert, In no apparent distress HEENT: Atraumatic, PERRLA, EOMI Neck: Supple, JVD not distended Respiratory: Clear to auscultation bilaterally, Normal air movement Cardiovascular: Regular rate/rhythm, Normal S1 S2 Gastrointestinal: Normal bowel sounds, No tenderness Musculoskeletal: No tenderness Integumentary: No rashes Neurological: Normal speech, Normal tone, Normal affect Lymphatics: No axilla or inguinal lymphadenopathy - Studies Microbiology Data (last 24 hrs): 11/11/17 21:09 Blood - Blood Aerobic Blood Culture - Final No growth in 5 days. 11/11/17 21:09 Blood - Blood Anaerobic Blood Culture - Final No growth in 5 days. 11/11/17 21:05 Blood - Blood Aerobic Blood Culture - Final No growth in 5 days. 11/11/17 21:05 Blood - Blood Anaerobic Blood Culture - Final No growth in 5 days. Medications List Reviewed: Yes Assessment And Plan - Current Problems (Diagnosis) (1) Acute respiratory distress Onset Date: 10/18/17 Current Visit: No Status: Acute Plan: Acute respiratory distress most likely secondary to multifactorial reasons. Volume overload versus COPD versus anemia -currently on nasal cannula saturating 88-92% -continue to monitor closely with continuous pulse ox. 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 -patient also had diastolic dysfunction on that echo -cardiology consulted Recc Appreciated. -patient is status post pacemaker placement -Now on HD (3) Chronic renal disease Onset Date: 04/24/17 Current Visit: No Status: Chronic Plan: Acute on chronic renal disease. -Patient has been steadily declining with her creatinine and her GFR -nephrology consulted. Reccs appreciated. -S/P perm Cath Placement. -HD in the hospital -Arrange for Chair time vs Home Dialysis Qualifiers: Chronic kidney disease stage: stage 4 (severe) Qualified Code(s): N18.4 - Chronic kidney disease, stage 4 (severe) (4) COPD (chronic obstructive pulmonary disease) Onset Date: 11/14/17 Current Visit: Yes Status: Chronic Qualifiers: COPD type: chronic bronchitis Chronic bronchitis type: mixed simple and mucopurulent Qualified Code(s): J41.8 - Mixed simple and mucopurulent chronic bronchitis (5) Anemia, chronic disease Onset Date: 10/18/17 Current Visit: No Status: Chronic (6) Afib Onset Date: 10/04/14 Current Visit: No Status: Chronic Qualifiers: Atrial fibrillation type: chronic Qualified Code(s): I48.2 - Chronic atrial fibrillation (7) CAD (coronary artery disease) Onset Date: 10/04/14 Current Visit: No Status: Chronic Qualifiers: Coronary Disease-Associated Artery/Lesion type: [place] artery [place] vs. transplanted heart: [place] heart Associated angina: without angina Qualified Code(s): I25.10 - Atherosclerotic heart disease of [place] coronary artery without angina pectoris (8) GERD (gastroesophageal reflux disease) Onset Date: 06/24/17 Current Visit: No Status: Chronic Qualifiers: Esophagitis presence: without esophagitis Qualified Code(s): K21.9 - Gastro -esophageal reflux disease without esophagitis (9) History of cardiac pacemaker Onset Date: 04/24/17 Current Visit: No Status: Chronic (10) Hyperlipidemia Onset Date: 04/24/17 Current Visit: No Status: Chronic Qualifiers: Hyperlipidemia type: unspecified Qualified Code(s): E78.5 - Hyperlipidemia , unspecified (11) Hypertension Onset Date: 10/04/14 Current Visit: No Status: Chronic Qualifiers: Hypertension type: essential hypertension Qualified Code(s): I10 - Essential (primary) hypertension Discharge Plan: Home Plan to discharge in: 48 Hours - Code Status/Comfort Care Code Status Assessed: Yes Critical Care: No
--- NOTE | 2017-11-17 14:54 | PN ---
Date of Progress Note: 11/17/2017 Subjective: The patient is doing better. No nausea. No vomiting. Physical Examination: Vital Signs: Blood pressure 119/66, pulse of 90. Afebrile. Chest: Clear to auscultation. Heart: S1, S2. Systolic murmur. Abdomen: Soft, nontender. Extremities: +1 edema. Erythema bilaterally. Laboratory Data: WBC 3.4, H and H 11/33, platelet of 100. Sodium 138, potassium 4.5, bicarb 30, BUN 16, creatinine 2.3, calcium 8.5, phos 2.3. Current Medications: The patient on, it include: 1.Levaquin. 2.Aspirin. 3.Plavix. 4.Atorvastatin. 5.Zofran. 6.Vitamin C. Assessment And Plan: 1.End-stage renal disease. We will continue dialysis. The patient is going to be scheduled for nehal lysis tomorrow, and we will follow up. Waiting for hepatitis, for the setup for outpatient dialysis. 2.Hypertension, controlled, optimal. We will keep utilizing blood pressure for more ultrafiltration . 3.Anemia, stable. Continue to monitor. No need for ROMELIA. Status post transfusion. 4.Chronic obstructive pulmonary disease with obstructive sleep apnea, as by Pulmonary. Continue cur rent treatment. 5.Congestive heart failure, diastolic dysfunction. Continue to establish better volume control with ultrafiltration. SID Voice ID: [id number] Report ID: [id number]
[2017-11-17] MEDS: MULTIVITAMIN TAB PO SCH (20:32)
[2017-11-17] MEDS: ATORVASTATIN 10 MG TAB PO SCH (20:32)
[2017-11-17 20:55] LABS: HBsAG Nonreactive (Nonreactive)
[2017-11-18] MEDS: IPRATROPIUM BROM 0.5MG/2.5ML NEB SCH ×4 (01:48→20:25)
[2017-11-18 05:06] LABS: Hematocrit 27.9 % (36.0-45.0); MCH 30.4 pg (27.0-35.0); MPV 8.7 fL (7.6-11.3); RBC Red Blood Cell Count 3.07 M/uL (3.86-4.86)
[2017-11-18 05:27] LABS: Phosphorus 3.2 mg/dL (2.5-4.9); Potassium 5.2 mmol/L (3.5-5.1)
[2017-11-18 05:42] LABS: Magnesium 1.8 mg/dL (1.8-2.4)
[2017-11-18] MEDS ORDERED: MAGNESIUM SULFATE 1 gm IVPB 1 GM/100 ML BAG IV ONE (05:52)
[2017-11-18] MEDS: CLOPIDOGREL 75 MG TABLET PO SCH (09:37)
[2017-11-18] MEDS: ASCORBIC ACID 500 MG TABLET PO SCH (09:37)
[2017-11-18] MEDS: ASPIRIN 81 MG CHEWABLE TABLET PO SCH (09:37)
--- NOTE | 2017-11-18 12:15 | P.PN ---
Subjective Date of Service: 11/18/17 Primary Care Provider: Dr Sheldon - Nephrology Chief Complaint: Anemia/shortness of breath Patient seen and examined at bedside with RN chair reviewed. Case discussed with nephrology and cardiology at this time. Denies having any chest pain or any other associated symptoms at this time. S/p HD cather placement Review of Systems 10-point ROS is otherwise unremarkable Physical Examination - Vital Signs Temperature: 98.5 F Blood Pressure: 140/70 Pulse: 105 Respirations: 28 Pulse Ox (%): 98 - Physical Exam General: Alert, Mild distress HEENT: Atraumatic, PERRLA, EOMI Neck: Supple, JVD not distended Respiratory: Normal air movement, Crackles/rales Cardiovascular: Regular rate/rhythm, Normal S1 S2 Gastrointestinal: Normal bowel sounds, No tenderness Musculoskeletal: No tenderness Integumentary: No rashes Neurological: Normal speech, Normal tone, Normal affect Lymphatics: No axilla or inguinal lymphadenopathy - Studies Medications List Reviewed: Yes Assessment And Plan - Current Problems (Diagnosis) (1) Acute respiratory distress Onset Date: 10/18/17 Current Visit: No Status: Acute Plan: Acute respiratory distress most likely secondary to multifactorial reasons. Volume overload versus COPD versus anemia -currently on nasal cannula saturating 88-92% -continue to monitor closely with continuous pulse ox. 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 -patient also had diastolic dysfunction on that echo -cardiology consulted Recc Appreciated. -patient is status post pacemaker placement -Now on HD (3) Chronic renal disease Onset Date: 04/24/17 Current Visit: No Status: Chronic Plan: Acute on chronic renal disease. -Patient has been steadily declining with her creatinine and her GFR -nephrology consulted. Reccs appreciated. -S/P perm Cath Placement. -HD in the hospital -Arrange for Chair time vs Home Dialysis Qualifiers: Chronic kidney disease stage: stage 4 (severe) Qualified Code(s): N18.4 - Chronic kidney disease, stage 4 (severe) (4) COPD (chronic obstructive pulmonary disease) Onset Date: 11/14/17 Current Visit: Yes Status: Chronic Qualifiers: COPD type: chronic bronchitis Chronic bronchitis type: mixed simple and mucopurulent Qualified Code(s): J41.8 - Mixed simple and mucopurulent chronic bronchitis (5) Anemia, chronic disease Onset Date: 10/18/17 Current Visit: No Status: Chronic (6) Afib Onset Date: 10/04/14 Current Visit: No Status: Chronic Qualifiers: Atrial fibrillation type: chronic Qualified Code(s): I48.2 - Chronic atrial fibrillation (7) CAD (coronary artery disease) Onset Date: 10/04/14 Current Visit: No Status: Chronic Qualifiers: Coronary Disease-Associated Artery/Lesion type: [place] artery [place] vs. transplanted heart: [place] heart Associated angina: without angina Qualified Code(s): I25.10 - Atherosclerotic heart disease of [place] coronary artery without angina pectoris (8) GERD (gastroesophageal reflux disease) Onset Date: 06/24/17 Current Visit: No Status: Chronic Qualifiers: Esophagitis presence: without esophagitis Qualified Code(s): K21.9 - Gastro -esophageal reflux disease without esophagitis (9) History of cardiac pacemaker Onset Date: 04/24/17 Current Visit: No Status: Chronic (10) Hyperlipidemia Onset Date: 04/24/17 Current Visit: No Status: Chronic Qualifiers: Hyperlipidemia type: unspecified Qualified Code(s): E78.5 - Hyperlipidemia , unspecified (11) Hypertension Onset Date: 10/04/14 Current Visit: No Status: Chronic Qualifiers: Hypertension type: essential hypertension Qualified Code(s): I10 - Essential (primary) hypertension Discharge Plan: Home Plan to discharge in: 24 Hours - Code Status/Comfort Care Code Status Assessed: No Critical Care: Yes
[2017-11-18] MEDS: Levofloxacin500mg IV 500 MG/100 ML BAG IV SCH (15:45)
[2017-11-18] MEDS: ATORVASTATIN 10 MG TAB PO SCH (20:56)
[2017-11-18] MEDS: MULTIVITAMIN TAB PO SCH (20:57)
--- NOTE | 2017-11-19 02:19 | PN ---
Date of Progress Note: 11/18/2017 Chief Complaint: End-stage renal disease. History Of Present Illness: The patient received dialysis today. Procedure was well tolerated. Review of Systems: The patient complains of some fatigue. Shortness of breath is improving. Physical Examination: Lungs: Clear to auscultation bilaterally. Heart: S1, S2. Abdomen: Soft, benign. Extremities: 1+ edema in upper and lower extremities. Laboratory Data: BUN 16, creatinine 2.3, phosphorus 2.3. Impression And Plan: 1.End-stage renal disease. Continue dialysis 3 times per week. 2.Hypertension. Blood pressure controlled. Monitor blood pressure when the patient has dialysis. Adjust ultrafiltration goal accordingly. 3.Chronic obstructive pulmonary disease. The patient is getting treatment for COPD exacerbation. 4.Congestive heart failure, diastolic dysfunction, acute on chronic, improving. Volemia controlled. EB/MODL Voice ID: [id number] Report ID: [id number]
[2017-11-19] MEDS: IPRATROPIUM BROM 0.5MG/2.5ML NEB SCH ×4 (02:24→19:30)
[2017-11-19] MEDS ORDERED: NA CHLORIDE 0.9% 500 ML IV ONE (03:02)
[2017-11-19 05:10] LABS: Magnesium 1.9 mg/dL (1.8-2.4); Phosphorus 2.6 mg/dL (2.5-4.9); Potassium 4.3 mmol/L (3.5-5.1)
--- NOTE | 2017-11-19 06:18 | EKG ---
Test Date: 2017-11-19 Test Time: 03:18:59 Internal Corrosion Specialist: RT Bejarano MEASUREMENT RESULTS: Intervals: Rate: 99 ND: 152 QRSD: 124 QT: 374 QTc: 479 [place]: P: 74 ND: 152 QRS: -29 T: 180 INTERPRETIVE STATEMENTS: Normal sinus rhythm with premature atrial complexes Nonspecific intraventricular conduction delay ST & T wave abnormality, consider lateral ischemia Abnormal ECG Compared to ECG 11/19/2017 02:17:49 Atrial fibrillation no longer present Left-axis deviation no longer present ST (T wave) deviation still present Electronically Signed On 11-19-17 06:18:14 CDT by Maxi Burnett
--- NOTE | 2017-11-19 06:19 | EKG ---
Test Date: 2017-11-19 Test Time: 02:17:49 Preschool Disability Teacher: RT Bejarano MEASUREMENT RESULTS: Intervals: Rate: 135 UT: QRSD: 124 QT: 338 QTc: 507 [place]: P: UT: QRS: -34 T: 155 INTERPRETIVE STATEMENTS: Atrial fibrillation with rapid ventricular response Left axis deviation Nonspecific intraventricular conduction delay ST abnormality, possible inferolateral subendocardial injury Abnormal ECG Compared to ECG 11/15/2017 13:00:48 Left-axis deviation now present Intraventricular conduction delay now present Sinus rhythm no longer present Myocardial infarct finding no longer present ST (T wave) deviation still present Electronically Signed On 11-19-17 06:18:42 CDT by Maxi Burnett
[2017-11-19] MEDS: ASPIRIN 81 MG CHEWABLE TABLET PO SCH (08:34)
[2017-11-19] MEDS: ASCORBIC ACID 500 MG TABLET PO SCH (08:34)
[2017-11-19] MEDS: CLOPIDOGREL 75 MG TABLET PO SCH (08:34)
[2017-11-19] MEDS: Levofloxacin500mg IV 500 MG/100 ML BAG IV SCH (11:07)
[2017-11-19] MEDS ORDERED: EPOETIN ALFA 10,000 UNIT/ML VIAL IV SCH (12:30)
--- NOTE | 2017-11-19 14:59 | PN ---
Date of Progress Note: 11/19/2017 Subjective: The patient doing better, had incident of feeling anxious yesterday. Blood pressure leah t down to the 90. The patient received IV fluid. Blood pressure maintained good. Objective: Vital Signs: Blood pressure 142/81, pulse of 97. Chest: Clear to auscultation. Heart: S1, S2. Systolic murmur. Abdomen: Soft. Nontender. Extremity: Trace edema. Erythema bilateral. Laboratory Data: WBC 4.6, H and H 9.3/27.9, platelet 130. Sodium 138, potassium 4.3, bicarb 29, BUN 10, creatinine of 2, calcium 8.2, phosphorus 2.6, magnesium of 1.9. Medications: Current medications the patient on include Levaquin 500 daily, heparin, Plavix, atorvas tatin, Zofran. Assessment And Plan: 1.End-stage renal disease secondary to cardiorenal, normal volume currently. I am going to continue dialysis Saturday, Saturday, Saturday. The patient is going to be scheduled for dialysis tomorrow. 2.Hypertension, controlled optimal. We will utilize blood pressure for more ultrafiltration. Keep holding all blood pressure medication. 3.Anemia of chronic kidney disease, status post transfusion, hemoglobin and hematocrit being stable. Continue on Epogen, the patient not qualified for IV iron. 4.Congestive heart failure. We will try to establish better volume control for the patient. 5.Cellulitis. Continue Levaquin. The patient may be able to go tomorrow after dialysis as her next session is going to be Saturday. JESSICA/ADITI Voice ID: [id number] Report ID: [id number]
[2017-11-19] MEDS ORDERED: METHYLPREDNISOLONE 125 MG INJ IV ONE (19:58)
--- NOTE | 2017-11-19 19:59 | PN ---
Date of Progress Note: 11/19/2017 Code Status: Full. History: The patient seen and examined. Chart reviewed and case discussed with RN and Dr. Sheldon. The patient awaiting home dialysis set up. No complaints. No acute events overnight. Review of Systems: Negative except as above. Medications: List reviewed. Physical Examination: Vital Signs: Temperature 98.4, heart rate 102, blood pressure 137/70, respirations 18, O2 99% on 2 L via nasal cannula. General: Awake, alert, oriented x3. Elderly female, in no acute distress. CV: S1, S2. Peripheral pulses present. No murmurs. Respiratory: Moving air well bilaterally. No wheezing. Gastrointestinal: Abdomen is soft, nontender, nondistended. Positive bowel sounds. Extremities: No clubbing, cyanosis, or edema. Neurologic: Nonfocal. Laboratory Data: Sodium 138, potassium 4.3, chloride 103, CO2 29, BUN 10, creatinine 2, glucose 90, calcium 8.2, phosphorus 2.6, magnesium 1.9. Blood cultures no growth, final. Assessment And Plan: An 87-year-old female with: 1.Acute respiratory distress secondary to volume overload, chronic obstructive pulmonary disease, an d possibly due to anemia. The patient on supplemental oxygen. Wean as tolerated, improving. 2.Combined systolic and diastolic heart failure, acute. Ejection fraction declined from 60% to 40% recently. We will continue with congestive heart failure guidelines. The patient is status [facility] now. Appreciate Cardiology input. 3.Acute on chronic kidney disease. The patient has been started on hemodialysis cath placement done . Primary cath placement has been done arranging home dialysis. Awaiting water test. Stage 4 chron ic kidney disease. 4.Chronic obstructive pulmonary disease, chronic bronchitis, stable. Continue nebulizers as needed. 5.Anemia of chronic disease secondary to chronic kidney disease. 6.Chronic atrial fibrillation. 7.Coronary artery disease [place] artery and [place] heart without angina. 8.Gastroesophageal reflux disease without esophagitis. 9.Status post pacemaker. 10.Mixed hyperlipidemia. 11.Essential hypertension. Plan: Discharge once home dialysis has been set up. SA/MODL Voice ID: [id number] Report ID: [id number]
[2017-11-19] MEDS: ATORVASTATIN 10 MG TAB PO SCH (20:41)
[2017-11-19] MEDS: MULTIVITAMIN TAB PO SCH (20:41)
--- NOTE | 2017-11-19 21:36 | RAD REPORT ---
EXAM DESCRIPTION: RAD - Chest Single View - 11/19/2017 9:29 pm CLINICAL HISTORY: chest pain Chest pain. COMPARISON: Chest Single View dated 11/14/2017; Chest Single View dated 11/13/2017; Chest Single View dated 11/11/2017; Chest Single View dated 10/18/2017 FINDINGS: Portable technique limits examination quality. The lungs are grossly clear. The heart is normal in size. Aortic atherosclerosis. No displaced fractu res.Dual lead pacer device is in place. Left-sided venous catheter tip in the SVC. IMPRESSION: No acute intrathoracic process suspected.
[2017-11-19 22:11] LABS: Arterial Blood Carboxyhemoglob 1.7 % (0-1.5); Blood Gas Oxyhemoglobin 93.6 % (94-97); Blood O2 Saturation 75.9 % (92-98.5)
[2017-11-19 22:13] LABS: Blood Gas RHB 93.6 %
[2017-11-20] MEDS: IPRATROPIUM BROM 0.5MG/2.5ML NEB SCH ×3 (01:12→13:35)
[2017-11-20 05:13] LABS: Magnesium 1.9 mg/dL (1.8-2.4); Potassium 5.2 mmol/L (3.5-5.1)
[2017-11-20 06:41] VITALS: BMI 23.7
[2017-11-20] MEDS: ASPIRIN 81 MG CHEWABLE TABLET PO SCH (09:47)
[2017-11-20] MEDS: ASCORBIC ACID 500 MG TABLET PO SCH (09:47)
[2017-11-20] MEDS: CLOPIDOGREL 75 MG TABLET PO SCH (09:47)
--- NOTE | 2017-11-20 10:47 | EKG ---
Test Date: 2017-11-19 Test Time: 20:29:15 Roofing Supervisor: DA MEASUREMENT RESULTS: Intervals: Rate: 138 PA: QRSD: 124 QT: 326 QTc: 493 [place]: P: PA: QRS: 31 T: 202 INTERPRETIVE STATEMENTS: Atrial fibrillation with rapid ventricular response Nonspecific intraventricular conduction delay Marked ST abnormality, possible inferior subendocardial injury Abnormal ECG Compared to ECG 11/19/2017 03:18:59 Sinus rhythm no longer present Atrial premature complex(es) no longer present Possible ischemia no longer present ST (T wave) deviation still present Electronically Signed On 11-20-17 10:47:26 CDT by Maxi Burnett
[2017-11-20] MEDS: Levofloxacin500mg IV 500 MG/100 ML BAG IV SCH (11:42)
[2017-11-20 14:16] VITALS: O2SAT 95
--- NOTE | 2017-11-20 16:27 | PN ---
Date of Progress Note: 11/20/2017 Subjective: The patient had shortness of breath yesterday, had to have BiPAP. Objective: Vital Signs: Blood pressure 152/76, pulse of 88. Chest: Crackles bilateral base. Heart: S1, S2. Systolic murmur. Abdomen: Soft. Nontender. Extremities: Trace edema. Laboratory Data: H and H 9.3/27.9. Sodium 134, potassium 5.2, bicarb 25, BUN 18, creatinine 2.6, GF R of 17, calcium 8.8. Chest x-ray, over volume. Medications: Current medications the patient on include aspirin, Levaquin, Plavix, Epogen, Tylenol, ipratropium, Solu-Medrol, and breathing treatment. 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 Hard to keep up with the fluid. We will contin ue dialysis. We will dialyze the patient today. 2.Hypertension. We will keep holding all blood pressure medication given the incidence of low blood pressure and will utilize the blood pressure for ultrafiltration. 3.Hyperkalemia. We will dialyze on low potassium bath. 4.Congestive heart failure, over volume. Continue this to establish better volume control with ultr afiltration. 5.Cellulitis. Continue Levaquin. 6.Anemia of chronic kidney disease, status post transfusion. Continue Epogen. SID Voice ID: [id number] Report ID: [id number]
[2017-11-20 18:13] VITALS: BP 127/67; TEMP 97.6
--- NOTE | 2017-11-21 01:33 | DS ---
Date of Discharge: 11/20/2017 Consultants: Burak Sheldon M.D. with Nephrology; Mattie Cho M.D.; Nish Pardo M.D. with General Surgery; Andrea Rao M.D. and Maxi Burnett M.D. with Cardiology. Procedure: On 11/14/2017, placement of tunneled catheter for hemodialysis. Admitting Diagnoses: 1.Acute on chronic systolic heart failure. 2.Chronic obstructive pulmonary disease. 3.Paroxysmal atrial fibrillation. 4.Chronic kidney disease, stage 4. 5.Mixed hyperlipidemia. 6.Essential hypertension. 7.Status post placement of cardiac pacemaker. 8.Obstructive sleep apnea. Discharge Diagnoses: 1.Acute respiratory distress, secondary to volume overload. 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 3.Acute on chronic kidney disease, started on hemodialysis. 4.Chronic obstructive pulmonary disease, chronic bronchitis. 5.Anemia of chronic disease secondary to chronic kidney disease. 6.Chronic atrial fibrillation. 7.Coronary artery disease [place] artery and [place] heart, without angina. 8.Gastroesophageal reflux disease, without esophagitis. 9.Status post pacemaker. 10.Mixed hyperlipidemia. 11.Essential hypertension. Hospital Course: The patient is an 87-year-old female who comes in with anemia and shortness of ana th. The patient was found to have low hemoglobin by the home health agency that [facility]ynn labs on her. T he patient does have history of congestive heart failure and has a pacemaker as well as chronic obstr uctive pulmonary disease. The patient was admitted to the hospital for worsening respiratory status. She was seen by Cardiology, Dr. Rao. She was diuresed. Echo was repeated. She was started on IV Lasix as well. Her repeat chest x-ray did show some improvement. The patient was also seen by n ephrologist, Dr. Sheldon, who recommended starting dialysis. Therefore, Dr. Pardo with [facility] was consulted and he placed a tunneled catheter as mentioned above. The patient was then start ed on dialysis, did well. Her electrolytes remained stable. The patient was then set up for dialysi s at home. The patient was then doing well. Her vital signs were stable. Her blood pressure remain ed stable. She was on 2 L of oxygen. She had improvement in her hemoglobin level after treatment. The patient was then cleared for discharge from Cardiology and Nephrology standpoint for discharge to home with home dialysis being set up. Condition: Stable. Activity: Fall precautions. Diet: Renal. Followup: Follow up with primary care physician in 2-3 days. Follow up with retail interior designer, Dr. Lindy sales, in 2 weeks. Follow up with cone runner, Dr. Galan, who is the patient's primary cone runner , in 2 weeks. Return to ER for worsening condition. Total time spent discharging the patient was 33 minutes. Physical Examination: General: Awake, alert, oriented x3. Elderly female, no acute distress. CV: S1, S2. Irregularly irregular. Respiratory: Moving air well bilaterally. Abdomen: Abdomen is soft, nontender, nondistended. Positive bowel sounds. Extremities: No clubbing or cyanosis. Trace pedal edema. Neurologic: Nonfocal. SA/MODL Voice ID: [id number] Report ID: [id number]
== END 2017-11-20 19:00 | disposition home health service (06) | DRG 189 ==
LOC: ER 20:16 → ERHOLD 23:28 → 4TH 11-12 00:01 → OBSVTOIN 11-14 08:03
PROVIDERS: ADMIT Hospitalist; ATTEND Family Medicine
PROC: 05HN33Z Insertion of Infusion Device into Left Internal Jugular Vein, Percutaneous Approach (ICD-10-PCS; 2017-11-14)
PROC: B544ZZA Ultrasonography of Left Jugular Veins, Guidance (ICD-10-PCS; 2017-11-14)
PROC: 5A1D70Z Performance of Urinary Filtration, Intermittent, Less than 6 Hours Per Day (ICD-10-PCS; 2017-11-14)
PROC: 30233N1 Transfusion of Nonautologous Red Blood Cells into Peripheral Vein, Percutaneous Approach (ICD-10-PCS; 2017-11-14)
PROC: 0JHF3XZ Insertion of Tunneled Vascular Access Device into Left Upper Arm Subcutaneous Tissue and Fascia, Percutaneous Approach (ICD-10-PCS; principal; 2017-11-14 11:30)
PROC: 5A1D70Z Performance of Urinary Filtration, Intermittent, Less than 6 Hours Per Day (ICD-10-PCS; 2017-11-16)
PROC: 5A1D70Z Performance of Urinary Filtration, Intermittent, Less than 6 Hours Per Day (ICD-10-PCS; 2017-11-18)
PROC: 5A1D70Z Performance of Urinary Filtration, Intermittent, Less than 6 Hours Per Day (ICD-10-PCS; 2017-11-20)
DX: J96.02 Acute respiratory failure with hypercapnia (principal); N17.0 Acute kidney failure with tubular necrosis; N18.6 End stage renal disease; I50.43 Acute on chronic combined systolic (congestive) and diastolic (congestive) heart failure; E87.2 Acidosis; J44.1 Chronic obstructive pulmonary disease with (acute) exacerbation; I13.2 Hypertensive heart and chronic kidney disease with heart failure and with stage 5 chronic kidney disease, or end stage renal disease; L03.116 Cellulitis of left lower limb; L03.115 Cellulitis of right lower limb; D63.1 Anemia in chronic kidney disease; I48.0 Paroxysmal atrial fibrillation; E78.2 Mixed hyperlipidemia; G47.33 Obstructive sleep apnea (adult) (pediatric); Z95.0 Presence of cardiac pacemaker; I25.10 Atherosclerotic heart disease of native coronary artery without angina pectoris; K21.9 Gastro-esophageal reflux disease without esophagitis; Z88.0 Allergy status to penicillin; Z88.8 Allergy status to other drugs, medicaments and biological substances; Z91.041 Radiographic dye allergy status; Z79.02 Long term (current) use of antithrombotics/antiplatelets; Z87.891 Personal history of nicotine dependence; Z95.5 Presence of coronary angioplasty implant and graft; Z99.81 Dependence on supplemental oxygen; I73.9 Peripheral vascular disease, unspecified; I65.29 Occlusion and stenosis of unspecified carotid artery; E11.51 Type 2 diabetes mellitus with diabetic peripheral angiopathy without gangrene; E11.22 Type 2 diabetes mellitus with diabetic chronic kidney disease; E87.6 Hypokalemia; D69.6 Thrombocytopenia, unspecified; E21.1 Secondary hyperparathyroidism, not elsewhere classified
CPT/HCPCS: 36415; 71045; 76000; 80048; 80053; 80061; 80069; 80076; 81003; 81015; 82040; 82570; 82607; 82728; 82746; 82805; 83540; 83615; 83735; 83880; 84100; 84132; 84156; 84466; 84484; 84550; 85025; 85027; 85044; 85610; 86317; 86704; 86706; 86850; 86900; 86901; 87040; 87077; 87086; 87088; 87186; 87340; 87522; 90935; 93005; 94640; 94760; 96365; 96366; 96368; 96375; 97163; 99285; C1752; J0692; J0885; J1644; J2250; J2405; J2930; J3010; J3370; J3475; P9016; P9047; Q4081

== ENCOUNTER 2017-12-01 10:40 | Emergency (ER) | payer OTHER ==
[2017-12-01 12:45] LABS: Absolute Lymphocytes (CBC) 0.6 K/uL (0.7-4.9); Absolute Monocytes 0.7 K/uL (0.1-1.3); Absolute Neutrophil 6.1 K/uL (1.8-8.0); Basophils % 0.4 % (0-1.3); Eosinophils % 1.1 % (0-4.4); Lymphocytes % 7.5 % (15.3-44.8); MCH 29.5 pg (27.0-35.0); MCV 90.1 fL (80-100); Monocytes % 9.6 % (3.3-12.3); RBC Red Blood Cell Count 3.11 M/uL (3.86-4.86)
[2017-12-01 13:00] LABS: Protime INR 1.17
[2017-12-01] MEDS ORDERED: IPRATROPIUM BROM 0.5MG/2.5ML ONE (13:12)
--- NOTE | 2017-12-01 13:37 | EDPHYS ---
Physician Documentation [facility] Name: Bárbara Thakkar Age: 87 yrs Sex: Female : 1930 Arrival Date: 12/01/2017 Time: 10:43 Bed 14 Private MD: Abhinav uCriel H ED Physician Julio Martínez HPI: 12/01 11:57 This 87 yrs old Female presents to ER via Ambulatory with complaints of Skin jmm Tear(s). 11:57 The patient presents with an injury, a laceration. The complaints affect the left williamson. jmm Onset: The symptoms/episode began/occurred acutely, 3 day(s) ago. Modifying factors: The symptoms are alleviated by nothing. the symptoms are aggravated by nothing. Associated signs and symptoms: Pertinent positives: bleeding. This is an 87 year old female with a history of COPD, ESRD, HTN that presents to the ED with a skin tear to the left lower leg. says he accidently scratched the area in bed. States the wound continues to bleed through dressing. Patient has stopped plavix for 2 days.. Historical: - Allergies: 11:04 acetylcysteine; hj 11:04 Ciprofloxacin; hj 11:04 Iodinated Contrast Media - IV Dye; hj 11:04 PENICILLINS; hj - PMHx: 11:04 COPD; High Cholesterol; Hypertension; Pacemaker; hj - PSHx: 11:04 Appendectomy; Hysterectomy; pacemaker; Heart stents; Kidney stents; stent on bilateral hj legs; cyndi cath; - Immunization history:: Adult Immunizations up to date. - Social history:: Smoking status: Patient/guardian denies using tobacco, Patient/guardian denies using alcohol. - Ebola Screening: : Patient negative for fever greater than or equal to 101.5 degrees Fahrenheit, and additional compatible Ebola Virus Disease symptoms Patient denies exposure to infectious person Patient denies travel to an Ebola-affected area in the 21 days before illness onset. ROS: 11:57 Constitutional: Negative for fever, chills, and weight loss, Cardiovascular: Negative jmm for chest pain, palpitations, and edema, Respiratory: Negative for shortness of breath, cough, wheezing, and pleuritic chest pain. 11:57 MS/extremity: Positive for erythema, laceration, swelling. 11:57 Skin: Positive for laceration(s). 11:57 All other systems are negative. Exam: 11:57 Head/Face: atraumatic. Eyes: EOMI, no conjunctival erythema appreciated Chest/axilla: [facility] Normal chest wall appearance and motion. Cardiovascular: Regular rate and rhythm. No edema appreciated Respiratory: Normal respirations, no respiratory distress appreciated Back: Normal ROM 11:57 Constitutional: The patient appears in no acute distress, alert, awake. 11:57 Musculoskeletal/extremity: swelling noted to the legs bilaterally, full dorsalis pedis pulse, NVI. 11:57 Skin: skin tear noted to the left anterior tibial region. blood clot noted. no active bleeding appreciated. Erythema noted to both lower extremities up to the level of the knee. non tender to palpation. 11:57 Neuro: Orientation: is normal, Mentation: is normal, Memory: is normal. Vital Signs: 11:05 BP 119 / 63; Pulse 113; Resp 18; Temp 98.5(O); Pulse Ox 95% on 3 lpm NC; Weight 57.15 hj kg; Height 5 ft. 0 in. (152.40 cm); Pain 5/10; 13:52 BP 115 / 74; Pulse 94; Resp 16; Temp 98.1; Pulse Ox 95% on R/A; la1 11:05 Body Mass Index 24.61 (57.15 kg, 152.40 cm) MDM: 11:57 Patient medically screened. [facility] 13:35 Data reviewed: vital signs, nurses notes. Counseling: I had a detailed discussion with [facility] the patient and/or guardian regarding: the historical points, exam findings, and any diagnostic results supporting the discharge/admit diagnosis, lab results, the need for outpatient follow up, to return to the emergency department if symptoms worsen or persist or if there are any questions or concerns that arise at home. 13:35 ED course: Patient is currelty taking levaquin for cellulitis. The wound was wrapped [facility] with a pressure dressing. Advised to continue home antibiotics. Advised to return to the ED if fever, increased swelling, or increased pain occurred. . 12/01 12:22 Order name: CBC with Diff; Complete Time: 13:06 [facility] 12/01 12:22 Order name: Ptt, Activated; Complete Time: 13:27 [facility] 12/01 12:22 Order name: PT-INR; Complete Time: 13:27 [facility] 12/01 12:22 Order name: Wound Care; Complete Time: 13:52 [facility] Administered Medications: 13:19 Drug: AtroVENT Aerosol 0.5 mg Route: Inhalation; la1 13:52 Follow up: Response: No adverse reaction la1 Disposition: 12/02 10:41 Co-signature as Attending Physician, Julio Martínez MD. ma2 Disposition: 12/01/17 13:36 Discharged to Home. Impression: Unspecified open wound of lower leg. - Condition is Stable. - Discharge Instructions: Skin Tear Care. - Medication Reconciliation Form, Thank You Letter, Antibiotic Education, Prescription Opioid Use form. - Follow up: Abhinav Curiel DO; When: 1 - 2 days; Reason: Recheck today's complaints, Continuance of care, Re-evaluation by your physician. Signatures: Dispatcher [employer] EDMS Shakeel Alexander PA PA [facility] Ollie Saravia RN RN la1 Gordo Bob RN RN Julio Martínez MD MD ma2 Corrections: (The following items were deleted from the chart) 12/01 13:52 13:36 12/01/2017 13:36 Discharged to Home. Impression: Unspecified open wound of lower la1 leg. Condition is Stable. Forms are Medication Reconciliation Form, Thank You Letter, Antibiotic Education, Prescription Opioid Use. Follow up: Abhinav Curiel; When: 1 - 2 days; Reason: Recheck today's complaints, Continuance of care, Re-evaluation by your physician. [facility]
--- NOTE | 2017-12-01 13:37 | ER ---
Nurse's Notes [facility] Name: Bárbara Thakkar Age: 87 yrs Sex: Female : 1930 Arrival Date: 12/01/2017 Time: 10:43 Bed 14 Private MD: Abhinav Curiel H Diagnosis: Unspecified open wound of lower leg Presentation: 12/01 11:01 Presenting complaint: Patient states: Saturday, i was trying to get in bed, when my hj someone accidentally scratched my L leg and bled, it is still bleeding till today; im on blood thinner, i stopped taking plavix for 2 days now because of that;. Transition of care: patient was not received from another setting of care. Onset of symptoms was December 01, 2017. Risk Assessment: Do you want to hurt yourself or someone else? Patient reports no desire to harm self or others. Initial Sepsis Screen: Does the patient meet any 2 criteria? No. Patient's initial sepsis screen is negative. Does the patient have a suspected source of infection? No. Patient's initial sepsis screen is negative. Care prior to arrival: None. 11:01 Method Of Arrival: Ambulatory 11:01 Acuity: CECE 4 hj Triage Assessment: 11:05 General: Appears in no apparent distress. uncomfortable, slender, Behavior is calm, hj cooperative, appropriate for age. Pain: Complains of pain in left leg. Historical: - Allergies: 11:04 acetylcysteine; hj 11:04 Ciprofloxacin; hj 11:04 Iodinated Contrast Media - IV Dye; hj 11:04 PENICILLINS; hj - PMHx: 11:04 COPD; High Cholesterol; Hypertension; Pacemaker; hj - PSHx: 11:04 Appendectomy; Hysterectomy; pacemaker; Heart stents; Kidney stents; stent on bilateral hj legs; cyndi cath; - Immunization history:: Adult Immunizations up to date. - Social history:: Smoking status: Patient/guardian denies using tobacco, Patient/guardian denies using alcohol. - Ebola Screening: : Patient negative for fever greater than or equal to 101.5 degrees Fahrenheit, and additional compatible Ebola Virus Disease symptoms Patient denies exposure to infectious person Patient denies travel to an Ebola-affected area in the 21 days before illness onset. Screenin:05 Abuse screen: Denies threats or abuse. Denies injuries from another. Nutritional hj screening: No deficits noted. Tuberculosis screening: No symptoms or risk factors identified. Fall Risk None identified. Assessment: 12:33 General: Appears in no apparent distress. Behavior is calm, cooperative. Pain: Denies la1 pain. Neuro: Level of Consciousness is awake, alert, obeys commands, Oriented to person, place. Cardiovascular: Capillary refill < 3 seconds Patient's skin is warm and dry. Respiratory: Airway is patent Respiratory effort is even, unlabored, Respiratory pattern is regular, symmetrical. GI: No signs and/or symptoms were reported involving the gastrointestinal system. : No signs and/or symptoms were reported regarding the genitourinary system. Derm: Wound noted left leg Wound is skin tear, bleeding controlled. 13:15 Reassessment: Patient appears in no apparent distress at this time. No changes from la1 previously documented assessment. Patient and/or family updated on plan of care and expected duration. Pain level reassessed. 13:19 Reassessment: pt states it is time for her atrovent treatment that she takes at 1pm. la1 ERP stated it is OK to give her dose now. Vital Signs: 11:05 BP 119 / 63; Pulse 113; Resp 18; Temp 98.5(O); Pulse Ox 95% on 3 lpm NC; Weight 57.15 hj kg; Height 5 ft. 0 in. (152.40 cm); Pain 5/10; 13:52 BP 115 / 74; Pulse 94; Resp 16; Temp 98.1; Pulse Ox 95% on R/A; la1 11:05 Body Mass Index 24.61 (57.15 kg, 152.40 cm) ED Course: 10:43 Patient arrived in ED. mr 10:43 Abhinav Curiel DO is Private Physician. mr 11:03 Triage completed. hj 11:05 Arm band placed on right wrist. hj 11:05 Patient has correct armband on for positive identification. Bed in low position. Call light in reach. Side rails up X 1. Adult w/ patient. 11:28 Ollie Saravia RN is Primary Nurse. la1 11:34 Shakeel Alexander PA is PHCP. [facility] 11:34 Julio Martínez MD is Attending Physician. [facility] 12:32 No provider procedures requiring assistance completed. Inserted saline lock: 22 gauge la1 in right antecubital area, using aseptic technique. Blood collected. 13:35 Abhinav Curiel DO is Referral Physician. [place] 13:52 IV discontinued, intact, bleeding controlled, No redness/swelling at site. Pressure la1 dressing applied. Administered Medications: 13:19 Drug: AtroVENT Aerosol 0.5 mg Route: Inhalation; la1 13:52 Follow up: Response: No adverse reaction la1 Outcome: 13:36 Discharge ordered by MD. [place] 13:52 Discharged to home via wheelchair, with family. la1 13:52 Condition: stable 13:52 Discharge instructions given to patient, Instructed on discharge instructions, follow up and referral plans. Demonstrated understanding of instructions, follow-up care. 13:52 Patient left the ED. la1 Signatures: Shakeel Alexander PA PA jmm Rivera, Mary mr Attema, Lee, RN RN la1 Gordo Bob RN RN
[2017-12-01 13:57] VITALS: O2SAT 95
[2017-12-01 13:58] VITALS: BP 115/74; TEMP 98.1
== END 2017-12-01 13:52 | disposition home or self-care (01) ==
LOC: ER 10:40
DX: S81.802A Unspecified open wound, left lower leg, initial encounter (principal); I12.0 Hypertensive chronic kidney disease with stage 5 chronic kidney disease or end stage renal disease; J44.9 Chronic obstructive pulmonary disease, unspecified; N18.6 End stage renal disease; Z79.01 Long term (current) use of anticoagulants; Z95.0 Presence of cardiac pacemaker; Z95.818 Presence of other cardiac implants and grafts; Z88.0 Allergy status to penicillin; Z88.1 Allergy status to other antibiotic agents; Z88.8 Allergy status to other drugs, medicaments and biological substances; Z91.048 Other nonmedicinal substance allergy status
CPT/HCPCS: 36415; 85025; 85610; 85730; 99284

== ENCOUNTER 2017-12-13 14:17 | Inpatient (IN) | payer OTHER ==
[2017-12-13] MEDS ORDERED: LORazepam 2 MG/ML VIAL ONE (14:27)
[2017-12-13] MEDS ORDERED: MIDAZOLAM HCL 2 MG/2 ML INJ ONE ×2 (14:54→16:06)
[2017-12-13 15:02] LABS: Absolute Lymphocytes (CBC) 0.3 K/uL (0.7-4.9); Absolute Monocytes 0.3 K/uL (0.1-1.3); Absolute Neutrophil 3.7 K/uL (1.8-8.0); Basophils % 0.7 % (0-1.3); Eosinophils % 3.7 % (0-4.4); Hematocrit 28.5 % (36.0-45.0); Lymphocytes % 6.3 % (15.3-44.8); MCH 29.8 pg (27.0-35.0); MCV 94.3 fL (80-100); MPV 9.2 fL (7.6-11.3); Monocytes % 6.3 % (3.3-12.3); RBC Red Blood Cell Count 3.03 M/uL (3.86-4.86)
[2017-12-13] MEDS ORDERED: METHYLPREDNISOLONE 125 MG INJ ONE (15:03)
[2017-12-13] MEDS ORDERED: LEVALBUTEROL 1.25 MG/3 ML NEB ONE (15:03)
--- NOTE | 2017-12-13 15:03 | RAD REPORT ---
EXAM DESCRIPTION: RAD - Chest Single View - 12/13/2017 2:47 pm CLINICAL HISTORY: Respiratory distress, respiratory failure COMPARISON: November 19 TECHNIQUE: AP portable chest image was obtained 1443 hours . FINDINGS: No pulmonary edema or focal lung parenchymal process. Resuscitation paddles are in place. Pacemaker and dialysis catheter in place. Endotracheal tube tip is mid aortic arch level 2 cm above t he martinez. Heart and vasculature are normal. No measurable pleural effusion and no pneumothorax. No a cute bony abnormality seen. No acute aortic findings suspected. IMPRESSION: No pulmonary edema or other acute cardiopulmonary process. ET tube in good position.
--- NOTE | 2017-12-13 15:16 | EDPHYS ---
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 14:20 The patient has shortness of breath at rest, during dialysis. Onset: The rn symptoms/episode began/occurred just prior to arrival. Duration: The symptoms are continuous. Severity of symptoms: At their worst the symptoms were severe in the emergency department the symptoms are worse. The patient has experienced similar episodes in the past. Brought in by EMS, was getting dialysis, about 1 hour in, and told hemodialysis technician that she could not breath, EMS called, well known to EMS, was unresponsive, agonal breathing at a rate of 6 bpm, intubated, given versed. Never lost a pulse. Waking up. . Historical: - Allergies: 14:23 acetylcysteine; bp 14:23 Ciprofloxacin; bp 14:23 Iodinated Contrast Media - IV Dye; bp 14:23 PENICILLINS; bp - Home Meds: 14:23 Advair Diskus 250-50 mcg/dose Inhl dsdv 1 puff 2 times per day [Active]; albuterol bp sulfate 2.5 mg /3 mL (0.083 %) Inhl nebu [Active]; amlodipine 10 mg tab 1 tab once daily [Active]; aspirin 81 mg Oral chew 1 tab once daily [Active]; Brovana 15 mcg/2 mL inhalation nebu 2 mL 2 times per day [Active]; carvedilol 25 mg Oral tab 1 tab 2 times per day [Active]; carvedilol 25 mg Oral tab 1 tab 2 times per day [Active]; clopidogrel 75 mg Oral tab 1 tab once daily [Active]; Cozaar 100 mg Oral tab 1 tab once daily [Active]; ferrous gluconate 240 mg (27 mg iron) Oral tab daily [Active]; hydralazine 25 mg Oral tab 1 tab 2 times per day [Active]; ipratropium bromide 0.02 % inhalation soln [Active]; Lasix 20 mg Oral tab 1 tab once daily [Active]; pantoprazole 40 mg Oral TbEC 1 tab once daily [Active]; Plavix 75 mg Oral tab 1 tab once daily [Active]; pravastatin 80 mg Oral tab 1 tab once daily [Active]; - PMHx: 14:23 COPD; High Cholesterol; Hypertension; Pacemaker; ESRD; bp - Immunization history:: Adult Immunizations up to date. - Social history:: Smoking status: Patient/guardian denies using tobacco. - Family history:: not pertinent. - Ebola Screening: : Patient negative for fever greater than or equal to 101.5 degrees Fahrenheit, and additional compatible Ebola Virus Disease symptoms Patient denies exposure to infectious person Patient denies travel to an Ebola-affected area in the 21 days before illness onset No symptoms or risks identified at this time. - Hospitalizations: : The patient was recently seen at [facility]. ROS: 14:20 Unable to obtain ROS due to altered mental status, obtunded state. rn Exam: 14:20 Constitutional: Intubated, GCS 3 Head/Face: Normocephalic, atraumatic. ENT: dry MM, rn oral airway in place Cardiovascular: Irregular, no murmur Respiratory: coarse bilateral breath sounds with exp wheezing when bagged Abdomen/GI: soft, non-distended, non-tender MS/ Extremity: Pulses equal, no cyanosis. 2+ pitting pedal edema Neuro: GCS3 intubated. Vital Signs: 14:23 BP 136 / 70; Pulse 74; Resp 16; Temp 96; Pulse Ox 100% ; Weight 72.57 kg; bp 14:30 BP 121 / 90; Pulse 77; Resp 16; Pulse Ox 100% ; bp 15:00 BP 116 / 52; Pulse 68; Resp 16; Pulse Ox 100% ; bp 15:15 BP 117 / 58; Pulse 67; Resp 16; Pulse Ox 100% ; bp 16:00 BP 151 / 69; Pulse 69; Resp 14; Pulse Ox 100% on ETT vent; bp 16:40 BP 153 / 74; Pulse 75; Resp 16; Pulse Ox 100% ; bp 17:30 BP 104 / 74; Pulse 90; Resp 16; Pulse Ox 98% on ETT vent; tw2 MDM: 14:16 Patient medically screened. rn 15:15 Differential diagnosis: Chronic Obstructive Pulmonary Disease Myocardial Infarction rn pneumonia, Pneumothorax pulmonary edema. Data reviewed: vital signs, nurses notes, lab test result(s), EKG, radiologic studies, plain films, and as a result, I will admit patient. Counseling: I had a detailed discussion with the patient and/or guardian regarding: the historical points, exam findings, and any diagnostic results supporting the discharge/admit diagnosis, lab results, radiology results, the need for further work-up and treatment in the hospital. Admission orders: after a detailed discussion of the patient's condition and case, the admit orders are written by me. 12/13 14:18 Order name: Blood Culture Adult (2) rn 12/13 14:18 Order name: BMP; Complete Time: 16:17 rn 12/13 14:18 Order name: CBC with Diff rn 12/13 14:18 Order name: Magnesium; Complete Time: 16: rn 12/13 14:18 Order name: NT PRO-BNP; Complete Time: 16:17 rn 12/13 14:18 Order name: Troponin (emerg Dept Use Only); Complete Time: 16: rn 12/13 14:18 Order name: XRAY CXR (1 view); Complete Time: 15:15 rn 12/13 14:19 Order name: Procalcitonin; Complete Time: 16:17 rn 12/13 14:19 Order name: Lactate; Complete Time: 16:17 rn 12/13 14:19 Order name: Flu; Complete Time: 16:17 rn 12/13 15:16 Order name: CBC Smear Scan EDMS 12/13 15:20 Order name: ABG; Complete Time: 16:17 eb 12/13 14:18 Order name: EKG; Complete Time: 14:19 rn 12/13 14:18 Order name: Cardiac monitoring; Complete Time: 14: rn 12/13 14:18 Order name: EKG - Nurse/Tech; Complete Time: 14:23 rn 12/13 14:18 Order name: IV Saline Lock; Complete Time: 14:23 rn 12/13 14:18 Order name: Labs collected and sent; Complete Time: 14:48 rn 12/13 14:18 Order name: O2 Per Protocol; Complete Time: 14:23 rn 12/13 14:18 Order name: O2 Sat Monitoring; Complete Time: 14:24 rn 12/13 16:04 Order name: Restraint:Non-Violent; Complete Time: 16:04 bp Administered Medications: 14:23 Drug: Ativan 2 mg Route: IVP; Site: left antecubital; tw2 14:33 Follow up: Response: Marked relief of symptoms bp 14:50 Drug: Versed 3 mg Route: IVP; Site: left antecubital; bp 15:20 Follow up: Response: No adverse reaction; Anxiety decreased bp 15:00 Drug: SOLU-Medrol 125 mg Route: IVP; Site: left antecubital; bp 15:21 Follow up: Response: No adverse reaction bp 15:20 Drug: Xopenex (3) 1.25 mg Route: Inhalation; bp 16:02 Drug: Versed 3 mg Route: IVP; Site: left antecubital; bp 16:10 Follow up: Response: Anxiety decreased bp Disposition: 15:15 Critical Care:. rn Disposition: 12/13/17 15:16 Hospitalization ordered by Dane Wiggins for Inpatient Admission. Preliminary diagnosis are Chronic obstructive pulmonary disease with (acute) exacerbation, Acute respiratory failure, Pulmonary edema, Hypoxemia. - Bed requested for Intensive Care Unit. - Status is Inpatient Admission. tw2 - Condition is Fair. - Problem is new. - Symptoms have improved. UTI on Admission? No Critical care time excluding procedures: 15:15 Critical care time: Bedside Care: 25 minutes, Consultation: 5 minutes. Total time: 30 rn minutes Signatures: Dispatcher [employer] Pamela Holloway RN RN dw Tommie Conley MD MD rn Wise, Tara, RN RN tw2 Albert Garvey RN RN bp Corrections: (The following items were deleted from the chart) 16:35 15:16 Hospitalization Ordered by Dane Wiggins MD for Inpatient Admission. Preliminary dw diagnosis is Chronic obstructive pulmonary disease with (acute) exacerbation; Acute respiratory failure; Pulmonary edema; Hypoxemia. Bed requested for Intensive Care Unit. Status is Inpatient Admission. Condition is Fair. Problem is new. Symptoms have improved. UTI on Admission? No. rn 16:36 16:35 12/13/2017 15:16 Hospitalization Ordered by Dane Wiggins MD for Inpatient dw Admission. Preliminary diagnosis is Chronic obstructive pulmonary disease with (acute) exacerbation; Acute respiratory failure; Pulmonary edema; Hypoxemia. Bed requested for Intensive Care Unit. Status is Inpatient Admission. Condition is Fair. Problem is new. Symptoms have improved. UTI on Admission? No. dw 17:54 16:36 12/13/2017 15:16 Hospitalization Ordered by Dane Wiggins MD for Inpatient tw2 Admission. Preliminary diagnosis is Chronic obstructive pulmonary disease with (acute) exacerbation; Acute respiratory failure; Pulmonary edema; Hypoxemia. Bed requested for Intensive Care Unit. Status is Inpatient Admission. Condition is Fair. Problem is new. Symptoms have improved. UTI on Admission? No. dw
--- NOTE | 2017-12-13 15:16 | ER ---
Nurse's Notes [facility] Name: Bárbara Thakkar Age: 87 yrs Sex: Female : 1930 Arrival Date: 12/13/2017 Time: 14:15 Bed 3 Private MD: Diagnosis: Chronic obstructive pulmonary disease with (acute) exacerbation;Acute respiratory failure;Pulmonary edema;Hypoxemia Presentation: 12/13 14:16 Presenting complaint: EMS states: SHE STOPPED BREATHING 1 HOUR INTO HER HOME DIALYSIS. bp Transition of care: patient was not received from another setting of care. Onset of symptoms is unknown. Risk Assessment: Do you want to hurt yourself or someone else? Patient reports no desire to harm self or others. Initial Sepsis Screen: Does the patient meet any 2 criteria? Altered Mental Status. No. Patient's initial sepsis screen is negative. Does the patient have a suspected source of infection? Yes: Productive cough/pneumonia. Care prior to arrival: Oral intubation, Medication(s) given: VERSED 8MG IV initiated. 18 GA, in the left antecubital area, Oxygen administered. via AMBU bag. 14:16 Method Of Arrival: EMS: [facility] bp 14:16 Acuity: CECE 1 bp Triage Assessment: 14:23 General: Appears distressed, Behavior is unresponsive. General: 87YO WF P/W ACUTE bp RESPIRATORY DISTRESS, INTUBATED EN ROUTE. Pain: Unable to use pain scale. Patient is unresponsive. 14:30 Respiratory: Reports PT INTUBATED Onset: The symptoms/episode began/occurred just prior bp to arrival, the patient has severe shortness of breath. Historical: - Allergies: 14:23 acetylcysteine; bp 14:23 Ciprofloxacin; bp 14:23 Iodinated Contrast Media - IV Dye; bp 14:23 PENICILLINS; bp - Home Meds: 14:23 Advair Diskus 250-50 mcg/dose Inhl dsdv 1 puff 2 times per day [Active]; albuterol bp sulfate 2.5 mg /3 mL (0.083 %) Inhl nebu [Active]; amlodipine 10 mg tab 1 tab once daily [Active]; aspirin 81 mg Oral chew 1 tab once daily [Active]; Brovana 15 mcg/2 mL inhalation nebu 2 mL 2 times per day [Active]; carvedilol 25 mg Oral tab 1 tab 2 times per day [Active]; carvedilol 25 mg Oral tab 1 tab 2 times per day [Active]; clopidogrel 75 mg Oral tab 1 tab once daily [Active]; Cozaar 100 mg Oral tab 1 tab once daily [Active]; ferrous gluconate 240 mg (27 mg iron) Oral tab daily [Active]; hydralazine 25 mg Oral tab 1 tab 2 times per day [Active]; ipratropium bromide 0.02 % inhalation soln [Active]; Lasix 20 mg Oral tab 1 tab once daily [Active]; pantoprazole 40 mg Oral TbEC 1 tab once daily [Active]; Plavix 75 mg Oral tab 1 tab once daily [Active]; pravastatin 80 mg Oral tab 1 tab once daily [Active]; - PMHx: 14:23 COPD; High Cholesterol; Hypertension; Pacemaker; ESRD; bp - Immunization history:: Adult Immunizations up to date. - Social history:: Smoking status: Patient/guardian denies using tobacco. - Family history:: not pertinent. - Ebola Screening: : Patient negative for fever greater than or equal to 101.5 degrees Fahrenheit, and additional compatible Ebola Virus Disease symptoms Patient denies exposure to infectious person Patient denies travel to an Ebola-affected area in the 21 days before illness onset No symptoms or risks identified at this time. - Hospitalizations: : The patient was recently seen at [facility]. Screenin:26 Abuse screen: Denies threats or abuse. Denies injuries from another. Nutritional bp screening: No deficits noted. Tuberculosis screening: No symptoms or risk factors identified. Fall Risk None identified. Assessment: 14:20 General: Appears distressed, Behavior is restless. Pain: Unable to use pain scale. Does bp not appear to understand pain scale. Neuro: Level of Consciousness is stuporous, Oriented to none. 14:20 Cardiovascular: Rhythm is sinus rhythm. Respiratory: Airway via oral intubation bp Respiratory effort is INTUBATED Respiratory pattern is symmetrical, VENTILATED Breath sounds with wheezes bilaterally. GI: No signs and/or symptoms were reported involving the gastrointestinal system. : No signs and/or symptoms were reported regarding the genitourinary system. EENT: No deficits noted. Derm: No deficits noted. Musculoskeletal: PT SEDATED, UNABLE TO ASSESS. 15:00 Reassessment: RT PAGED FOR BREATHING TREATMENT. bp Vital Signs: 14:23 BP 136 / 70; Pulse 74; Resp 16; Temp 96; Pulse Ox 100% ; Weight 72.57 kg; bp 14:30 BP 121 / 90; Pulse 77; Resp 16; Pulse Ox 100% ; bp 15:00 BP 116 / 52; Pulse 68; Resp 16; Pulse Ox 100% ; bp 15:15 BP 117 / 58; Pulse 67; Resp 16; Pulse Ox 100% ; bp 16:00 BP 151 / 69; Pulse 69; Resp 14; Pulse Ox 100% on ETT vent; bp 16:40 BP 153 / 74; Pulse 75; Resp 16; Pulse Ox 100% ; bp 17:30 BP 104 / 74; Pulse 90; Resp 16; Pulse Ox 98% on ETT vent; tw2 ED Course: 14:15 Patient arrived in ED. dm5 14:16 Tommie Conley MD is Attending Physician. rn 14:16 Albert Garvey RN is Primary Nurse. bp 14:20 Triage completed. bp 14:20 Maintain EMS IV. Dressing intact. Good blood return noted. Site clean \T\ dry. Gauge \T\ bp site: 18 GAUGE LEFT AC. 14:20 Assisted provider with intubation using 7.0 mm ETT via oral route. ET tube secured at bp 21cm at the gums. 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 14:21 EKG done, by pc maintenance technician. reviewed by Tommie Conley MD. sm3 14:25 First set of blood cultures drawn by me. jb1 14:25 Arm band placed on left wrist. bp 14:26 Patient has correct armband on for positive identification. Placed in gown. Bed in low bp position. Call light in reach. Side rails up X2. 14:40 Second set of blood cultures drawn by me. jb1 14:45 X-ray completed. Portable x-ray completed in exam room. Patient tolerated procedure sg4 well. 14:47 XRAY CXR (1 view) In Process Unspecified. EDMS 14:47 Initial lab(s) drawn, by me, sent to lab. Inserted saline lock: 22 gauge in right jb1 antecubital area, using aseptic technique. Blood collected. 15:15 Dane Wiggins MD is Hospitalizing Provider. rn 16:44 Patient admitted, IV remains in place. bp Restraints: 14:30 Non-Violent Restraint: Order obtained. Initiated on December 13, 2017 at 14:30 Restraint bp Education provided to family/significant other/legally authorized territory account representative. Actions/Behavior observed: Confused/disoriented, has impaired decision making, has decreased level of consciousness, unable to follow instructions, Less restrictive alternatives attempted: decrease environmental stimuli, 1:1 patient care, medications evaluated, medicated for pain/anxiety, lines/tubes covered, Alternative interventions: Ineffective. Clinical justification for use: airway protection, patient safety, Mental status: confused, Cognition: unable to follow commands, Circulation: Within defined parameters (based on Cardiovascular assessment) Skin integrity: Within defined parameters (based on Integumentary assessment) Signs of injury related to restraint: No injuries noted. Range of Motion (ROM): performed. Hydration/Food: patient declined. Elimination/Hygiene: bed bath provided, Restraint status: Side rails up x 4 Started. Soft wrist restraint (Right) Started. Soft wrist restraint (Left) Started. Criteria to discontinue Restraint not met. Restraint continued. 16:00 Non-Violent Restraint: Actions/Behavior observed: Confused/disoriented, has impaired bp decision making, has decreased level of consciousness, unable to follow instructions, Less restrictive alternatives attempted: decrease environmental stimuli, medications evaluated, medicated for pain/anxiety, Alternative interventions: Ineffective. Clinical justification for use: airway protection, patient safety, Mental status: confused, Cognition: unable to follow commands, Circulation: Within defined parameters (based on Cardiovascular assessment) Skin integrity: Within defined parameters (based on Integumentary assessment) Signs of injury related to restraint: No injuries noted. Range of Motion (ROM): performed. Hydration/Food: patient declined. Elimination/Hygiene: Patient declined. Restraint status: Side rails up x 4 Continued. Soft wrist restraint (Right) Continued. Soft wrist restraint (Left) Continued. Criteria to discontinue Restraint not met. Restraint continued. Administered Medications: 14:23 Drug: Ativan 2 mg Route: IVP; Site: left antecubital; tw2 14:33 Follow up: Response: Marked relief of symptoms bp 14:50 Drug: Versed 3 mg Route: IVP; Site: left antecubital; bp 15:20 Follow up: Response: No adverse reaction; Anxiety decreased bp 15:00 Drug: SOLU-Medrol 125 mg Route: IVP; Site: left antecubital; bp 15:21 Follow up: Response: No adverse reaction bp 15:20 Drug: Xopenex (3) 1.25 mg Route: Inhalation; bp 16:02 Drug: Versed 3 mg Route: IVP; Site: left antecubital; bp 16:10 Follow up: Response: Anxiety decreased bp Outcome: 15:16 Decision to Hospitalize by Provider. rn 16:44 critical bp 16:44 Instructed on the need for admit. 17:33 Admitted to ICU accompanied by nurse, accompanied by tech, via stretcher, room 3, with bp oxygen, on monitor, with chart, Report called to ROBERT ARCOS 17:54 Patient left the ED. tw2 Signatures: Dispatcher [employer] EDMS Jamal Balderas jb1 Madhavi France, RN RN dm5 Tommie oCnley MD MD rn Wise, Tara RN RN tw2 Albert Garvey RN RN Theresa Louie 3 Ammy Hensley sg4 Corrections: (The following items were deleted from the chart) 14:48 14:30 Inserted saline lock: 22 gauge in right antecubital area, using aseptic jb1 technique. Blood collected. bp 15:20 14:30 BP 136 / 70; Pulse 77bpm; Resp 16bpm; Pulse Ox 100%; bp bp
[2017-12-13 15:21] LABS: Magnesium 2.2 mg/dL (1.8-2.4); Potassium 4.3 mmol/L (3.5-5.1); Troponin (Emerg Dept Use Only) 0.09 ng/mL (0.0-0.045)
[2017-12-13 15:39] LABS: Arterial Blood Carboxyhemoglob 1.6 % (0-1.5); Blood Gas Oxyhemoglobin 97.8 % (94-97)
[2017-12-13 16:16] LABS: Anisocytosis 2+; Blood Morphology Comment NOTED (NOT SEEN); Elliptocytes 1+; Hypochromasia 1+; Platelet Estimate DECR; Urine White Blood Cell Casts OK
[2017-12-13 16:20] LABS: Poikilocytosis 1+
--- NOTE | 2017-12-13 17:09 | P.HP ---
Certification for Inpatient Patient admitted to: Inpatient With expected LOS: >2 Midnights Practitioner: I am a practitioner with admitting privileges, knowledge of patient current condition, hospital course, and medical plan of care. Services: Services provided to patient in accordance with Admission requirements found in Title 42 Section 412.3 of the Code of Federal Regulations Patient History Date of Service: 12/13/17 Reason for admission: Acute respiratory distress History of Present Illness: This is an 87-year-old female with history of end-stage COPD, end-stage CHF, end -stage renal disease who recently started dialysis brought in to the ED for acute respiratory distress. Per EMS, patient was about 1 hr into a home dialysis session this morning when she suddenly got short of breath. That dialysis attack called EMS. Upon EMS arrival, patient had agonal breathing and was breathing at a rate of 6 beats per min. She was then intubated and then given Versed. She was then brought to our ER. In the ER, patient with some agitation and was also given Versed x2. At the time of my exam, Patient was intubated and I was unable to give any history as there was no family at bedside. Of note, patient was recently discharged from our hospital for similar symptoms. At that visit, she was started on dialysis so dialysis fairly new process for her at this time. Allergies acetylcysteine [From Mucomyst] Allergy (Mild, Verified 09/06/17 04:01) Shortness of breath Iodinated Contrast- Oral and IV Dye Allergy (Verified 09/06/17 04:01) Itching/Hives/Rash ciprofloxacin Adverse Reaction (Mild, Verified 09/06/17 04:01) muscle spasm Penicillins Adverse Reaction (Mild, Verified 09/06/17 04:01) Itching Home Medications: Albuterol Sulfate [Ventolin Hfa] 2 puff IH QID PRN 09/06/17 Carvedilol 25 mg PO BID 09/06/17 Clopidogrel Bisulfate [Plavix*] 75 mg PO DAILY 09/06/17 Ferrous Sulfate 325 mg PO DAILY 09/06/17 Losartan Potassium [Cozaar] 100 mg PO BEDTIME 09/06/17 Multivit,Ther Iron,Ca,FA & Min [Centrum Tablet*] 1 tab PO BEDTIME 09/06/17 Amlodipine [Norvasc] 10 mg PO DAILY 11/12/17 Ascorbic Acid [Vitamin C] 250 mg PO DAILY 11/12/17 Aspirin 81 mg PO DAILY 11/12/17 Furosemide [Lasix*] 40 mg PO DAILY 11/12/17 Pravastatin Sodium [Pravachol] 80 mg PO DAILY 11/12/17 Levofloxacin [Levaquin] 500 mg PO DIRECTED #2 tablet 11/20/17 - Past Medical/Surgical History Diabetic: No -: COPD, Oxygen dependent -: HTN -: Atrial fibrillation, Pacemaker -: GERD -: Chronic anemia -: CAD -: PVD -: Carotid arterial disease -: Hyperlipidemia -: Permanent Pacemaker to upper rt chest-Sep [address] Narvaez -: Cornary stents -: kidney stents and stents to ea leg -: Bilateral lens implants -: Bilateral carpal tunnel repair -: Hysterectomy -: Appendectomy -: Tonsillectomy Psychosocial/ Personal History: She is - Family History Mother -: Heart disease, Diabetes Notes: of [place] Sister -: Diabetes - Social History Alcohol use: No CD- Drugs: No Caffeine use: No Review of Systems is unable to be obtained Physical Examination - Physical Exam General: Other (Intubated and sedated with Versed) HEENT: Atraumatic, EOMI Neck: JVD not distended Respiratory: Diminished, Expiratory wheezes (Coarse breath sound bilaterally) Musculoskeletal: Swelling (3+ pitting edema) Neurological: Other (GCS 3) - Studies Laboratory Data (last 24 hrs) 12/13/17 14:40: WBC 4.5 D, Hgb 9.0 L, Hct 28.5 L, Plt Count 82 L D 12/13/17 14:40: Sodium 135 L, Potassium 4.3, BUN 26 H, Creatinine 2.40 H, Glucose 203 H, Magnesium 2.2 Microbiology Data (last 24 hrs): 12/13/17 14:40 Nasopharnyx Influenza Type A Antigen Screen - Final 12/13/17 14:40 Nasopharnyx Influenza Type B Antigen Screen - Final Assessment and Plan - Problems (Diagnosis) (1) Acute respiratory failure Onset Date: 04/24/17 Current Visit: No Status: Acute Plan: Admit patient to the ICU for Acute respiratory failure requiring intubation. Currently mechanically ventilated and waiting for ICU bed. This could be secondary to volume overload until chest x-ray does not look too terrible, acute COPD exacerbation, CHF exacerbation Continue mechanical ventilation Qualifiers: Respiratory failure complication: hypoxia Qualified Code(s): J96.01 - Acute respiratory failure with hypoxia (2) Acute on chronic diastolic CHF (congestive heart failure) Onset Date: 04/24/17 Current Visit: No Status: Acute Plan: Patient with end-stage CHF with a big drop an ejection fraction noted on echo at last visit compared to previous echos. Seems like she is also third-spacing , will diurese patient with IV Lasix. (3) COPD exacerbation Onset Date: 10/18/17 Current Visit: No Status: Acute (4) Paroxysmal A-fib Onset Date: 06/24/17 Current Visit: No Status: Acute Plan: Seems to be stable at this time. Will restart home medications. Monitor on tele in ICU. (5) Anemia, chronic disease Onset Date: 10/18/17 Current Visit: No Status: Chronic Plan: Patient with a history of anemia, chronic disease. Will monitor and try and keep hemoglobin above 10 due to her severe cardiac disease status. (6) ESRD (end stage renal disease) on dialysis Current Visit: Yes Status: Acute Plan: Patient recently started dialysis. It seems her dialysis schedule is Saturday. Will consult nephrology. - Plan Poor/guarded prognosis. Will need to discuss code status with family. - Advance Directives Does patient have a Living Will: No Does patient have a Durable POA for Healthcare: Yes
[2017-12-13] MEDS ORDERED: INSULIN -REGULAR HUMAN 50 UNIT/0.5 ML ML SQ SCH (17:38)
[2017-12-13] MEDS ORDERED: ACETAMINOPHEN 500 MG TAB PO PRN (17:38)
--- NOTE | 2017-12-13 18:13 | P.CNS ---
Date of Consult: 12/13/17 Reason for Consult: Respiratory failure Chief Complaint: Acute respiratory distress History of Present Illness: Patient is 87 years of age with a history of severe COPD on end-stage renal disease and while on dialysis developed shortness of breath patient developed respiratory distress was intubated transferred here to the ICU currently on a ventilator PE is to be agitated Allergies acetylcysteine [From Mucomyst] Allergy (Mild, Verified 09/06/17 04:01) Shortness of breath Iodinated Contrast- Oral and IV Dye Allergy (Verified 09/06/17 04:01) Itching/Hives/Rash ciprofloxacin Adverse Reaction (Mild, Verified 09/06/17 04:01) muscle spasm Penicillins Adverse Reaction (Mild, Verified 09/06/17 04:01) Itching Home Medications: Albuterol Sulfate [Ventolin Hfa] 2 puff IH QID PRN 09/06/17 Carvedilol 25 mg PO BID 09/06/17 Clopidogrel Bisulfate [Plavix*] 75 mg PO DAILY 09/06/17 Ferrous Sulfate 325 mg PO DAILY 09/06/17 Losartan Potassium [Cozaar] 100 mg PO BEDTIME 09/06/17 Multivit,Ther Iron,Ca,FA & Min [Centrum Tablet*] 1 tab PO BEDTIME 09/06/17 Amlodipine [Norvasc] 10 mg PO DAILY 11/12/17 Ascorbic Acid [Vitamin C] 250 mg PO DAILY 11/12/17 Aspirin 81 mg PO DAILY 11/12/17 Furosemide [Lasix*] 40 mg PO DAILY 11/12/17 Pravastatin Sodium [Pravachol] 80 mg PO DAILY 11/12/17 Levofloxacin [Levaquin] 500 mg PO DIRECTED #2 tablet 11/20/17 - Past Medical/Surgical History Diabetic: No -: COPD, Oxygen dependent -: HTN -: Atrial fibrillation, Pacemaker -: GERD -: Chronic anemia -: CAD -: PVD -: Carotid arterial disease -: Hyperlipidemia -: Permanent Pacemaker to upper rt chest-Sep [address] Narvaez -: Cornary stents -: kidney stents and stents to ea leg -: Bilateral lens implants -: Bilateral carpal tunnel repair -: Hysterectomy -: Appendectomy -: Tonsillectomy Psychosocial/ Personal History: She is - Family History Mother Medical History: Heart disease, Diabetes Notes: of [place] Sister Medical History: Diabetes - Social History Smoking Status: Unknown if ever smoked Alcohol use: No CD- Drugs: No Caffeine use: No Review of Systems is unable to be obtained Physical Examination Temp Pulse Resp BP Pulse Ox 96 F L 75 16 153/74 H 12/13/17 14:23 12/13/17 16:40 12/13/17 16:40 12/13/17 16:40 General: Unresponsive HEENT: Atraumatic Neck: Supple Respiratory: Expiratory wheezes Cardiovascular: Normal S1 S2, Edema (Patient has 2+ edema) Gastrointestinal: Normal bowel sounds, Soft and benign Laboratory Data (last 24 hrs) 12/13/17 14:40: WBC 4.5 D, Hgb 9.0 L, Hct 28.5 L, Plt Count 82 L D 12/13/17 14:40: Sodium 135 L, Potassium 4.3, BUN 26 H, Creatinine 2.40 H, Glucose 203 H, Magnesium 2.2 - Problems (1) Acute and chronic respiratory failure ([id number]) Current Visit: Yes Status: Acute Plan: Patient is 87 years of age with a history of COPD end-stage renal disease while on dialysis developed respiratory distress was intubated transferred here to the ICU currently on a ventilator she has hypoxic hypercapnic chest x-ray shows some COPD changes with cardiomegaly patient's vital signs are stable patient has a history of left ventricular dysfunction I have added bronchodilators steroids blood cultures pending on some antibiotics until cultures are available also recommend doing a CT pulmonary angiogram to rule out thromboembolism meanwhile fully anti coagulated patient Qualifiers: Respiratory failure complication: hypoxia and hypercapnia Qualified Code(s) : J96.21 - Acute and chronic respiratory failure with hypoxia; J96.22 - Acute and chronic respiratory failure with hypercapnia
[2017-12-13] MEDS ORDERED: CEFEPIME 1 GM/VIAL IV SCH (18:14)
[2017-12-13] MEDS ORDERED: Pharmacy Consult 1 EA XX PRN (18:14)
[2017-12-13] MEDS: METHYLPREDNISOLONE 40 MG INJ IV SCH (18:42)
[2017-12-13] MEDS ORDERED: GLUCAGON 1 MG/VIAL IM PRN (18:44)
[2017-12-13] MEDS ORDERED: D50W 25 GM/50 ML SYRINGE IV PRN (18:44)
[2017-12-13 18:55] LABS: Absolute Lymphocytes (CBC) 0.6 K/uL (0.7-4.9); Absolute Monocytes 0.3 K/uL (0.1-1.3); Absolute Neutrophil 5.9 K/uL (1.8-8.0); Basophils % 0.8 % (0-1.3); Eosinophils % 0.8 % (0-4.4); Hematocrit 32.1 % (36.0-45.0); Lymphocytes % 8.8 % (15.3-44.8); MCH 30.3 pg (27.0-35.0); MCV 94.3 fL (80-100); MPV 9.4 fL (7.6-11.3); Monocytes % 4.2 % (3.3-12.3)
[2017-12-13] MEDS ORDERED: HEPARIN/D5W 25,000 UNIT/500 ML BAG IV SCH (19:00)
[2017-12-13] MEDS: CEFEPIME/SWI 1gm 1 GM/10 ML SYR IV SCH (19:24)
[2017-12-13] MEDS: ARFORMOTEROL TARTRATE 15 MCG/2 ML VIAL.NEB NEB SCH (19:35)
[2017-12-13] MEDS: IPRATROPIUM BROM 0.5MG/2.5ML NEB SCH (19:35)
[2017-12-13] MEDS: ENOXAPARIN 30 MG/0.3 ML SQ SCH (19:49)
[2017-12-13 19:59] LABS: Albumin 2.9 g/dL (3.4-5.0); Bilirubin Total 0.4 mg/dL (0.2-1.0); Potassium 4.6 mmol/L (3.5-5.1); Protein, Total 5.3 g/dL (6.4-8.2)
[2017-12-13] MEDS ORDERED: VANCOMYCIN/NS 1 gm 1 GM/250 ML BAG IV SCH (20:00)
[2017-12-13 20:41] LABS: Anisocytosis 2+; Blood Morphology Comment NOTED (NOT SEEN); Platelet Estimate DECR; Poikilocytosis 1+; Urine White Blood Cell Casts OK
[2017-12-13] MEDS ORDERED: METOPROLOL TARTRATE 5 MG/5 ML INJ IV PRN (21:02)
[2017-12-13] MEDS: LORazepam 2 MG/ML VIAL IV PRN (21:53)
[2017-12-13] MEDS: CARVEDILOL 25 MG TAB PO SCH (22:09)
[2017-12-13] MEDS: FENTANYL CITR 100 MCG/2 ML IV PRN (22:17)
[2017-12-14] MEDS: INSULIN -REGULAR HUMAN 50 UNIT/0.5 ML ML SQ SCH ×4 (00:35→18:00)
[2017-12-14] MEDS: METHYLPREDNISOLONE 40 MG INJ IV SCH ×3 (00:36→17:13)
[2017-12-14] MEDS: IPRATROPIUM BROM 0.5MG/2.5ML NEB SCH ×4 (01:35→19:26)
[2017-12-14] MEDS: FENTANYL CITR 100 MCG/2 ML IV PRN (04:35)
[2017-12-14 06:15] LABS: Arterial Blood Carboxyhemoglob 2.2 % (0-1.5); Blood Gas Oxyhemoglobin 96.8 % (94-97); Blood O2 Saturation 99.3 % (92-98.5)
[2017-12-14 06:29] LABS: Albumin 2.8 g/dL (3.4-5.0); Bilirubin Total 0.5 mg/dL (0.2-1.0); Potassium 4.5 mmol/L (3.5-5.1); Protein, Total 5.3 g/dL (6.4-8.2)
[2017-12-14 06:36] LABS: Absolute Lymphocytes (CBC) 0.3 K/uL (0.7-4.9); Absolute Monocytes 0.1 K/uL (0.1-1.3); Absolute Neutrophil 3.7 K/uL (1.8-8.0); Basophils % 0.2 % (0-1.3); Eosinophils % 0.1 % (0-4.4); Hematocrit 30.4 % (36.0-45.0); Lymphocytes % 7.5 % (15.3-44.8); MCH 29.8 pg (27.0-35.0); MPV 9.8 fL (7.6-11.3); Monocytes % 2.6 % (3.3-12.3)
--- NOTE | 2017-12-14 07:50 | RAD REPORT ---
EXAM DESCRIPTION: US - Extrem Venous W Compress Fredo - 12/13/2017 10:36 pm CLINICAL HISTORY: Leg pain and swelling COMPARISON: None. TECHNIQUE: Real-time sonographic evaluation of the bilateral lower extremity common femoral, superfi cial femoral, popliteal and posterior tibial veins was performed. FINDINGS: Normal compressibility, flow augmentation, phasic flow and spontaneous flow are identified in the left and right lower extremity common femoral, superficial femoral, popliteal and posterior t ibial veins. No intraluminal filling defects seen. IMPRESSION: No DVT in either lower extremity.
[2017-12-14] MEDS: ARFORMOTEROL TARTRATE 15 MCG/2 ML VIAL.NEB NEB SCH ×2 (07:58→19:26)
[2017-12-14] MEDS: CARVEDILOL 25 MG TAB PO SCH ×2 (09:09→20:28)
[2017-12-14] MEDS: FUROSEMIDE 40 MG/4 ML VIAL IV SCH ×2 (09:09→17:13)
[2017-12-14] MEDS: CLOPIDOGREL 75 MG TABLET PO SCH (09:09)
[2017-12-14] MEDS ORDERED: ONDANSETRON 4 MG/2 ML VIAL IV PRN (09:46)
--- NOTE | 2017-12-14 11:19 | P.PN ---
Subjective Date of Service: 12/14/17 Chief Complaint: Acute respiratory distress Subjective: Improving (Patient is doing well alert responsive cooperative he experienced apneic spells while trying to wean her off the ventilator) Review of Systems is unable to be obtained Physical Examination - Vital Signs Temperature: 96.7 F Blood Pressure: 139/73 Pulse: 80 Respirations: 23 Pulse Ox (%): 100 - Physical Exam General: Alert, Cooperative Respiratory: Clear to auscultation bilaterally, Diminished Cardiovascular: No edema, Normal S1 S2 - Studies Laboratory Data (last 24 hrs) 12/13/17 14:40: WBC 4.5 D, Hgb 9.0 L, Hct 28.5 L, Plt Count 82 L D 12/13/17 14:40: Sodium 135 L, Potassium 4.3, BUN 26 H, Creatinine 2.40 H, Glucose 203 H, Magnesium 2.2 Microbiology Data (last 24 hrs): 12/13/17 14:40 Nasopharnyx Influenza Type A Antigen Screen - Final 12/13/17 14:40 Nasopharnyx Influenza Type B Antigen Screen - Final Assessment & Plan - Problems (Diagnosis) (1) Acute and chronic respiratory failure ([id number]) Current Visit: Yes Status: Acute Plan: Patient is 87 years of age admitted with acute on chronic respiratory failure currently doing much better failed SVT this morning no evidence of DVT patient is allergic to contrast no clinical evidence of sepsis continue with present therapy possible wean and extubate either today or tomorrow antibiotics can be Dc eat cultures and negative pack changer to p.o. prednisone 20 mg twice a day once off ventilator continue with bronchodilators patient is scheduled to undergo dialysis today patient is on minimal oxygen 25% Qualifiers: Respiratory failure complication: hypoxia and hypercapnia Qualified Code(s) : J96.21 - Acute and chronic respiratory failure with hypoxia; J96.22 - Acute and chronic respiratory failure with hypercapnia
--- NOTE | 2017-12-14 12:28 | EKG ---
Test Date: 2017-12-13 Test Time: 14:15:45 Java Web User Interface Developer: EPIFANIO MEASUREMENT RESULTS: Intervals: Rate: 71 SC: 140 QRSD: 126 QT: 420 QTc: 456 [place]: P: SC: 140 QRS: -6 T: 236 INTERPRETIVE STATEMENTS: Normal sinus rhythm with sinus arrhythmia Nonspecific intraventricular block T wave abnormality, consider inferolateral ischemia Abnormal ECG Compared to ECG 11/19/2017 20:29:15 T-wave abnormality now present Possible ischemia now present Atrial fibrillation no longer present Intraventricular conduction delay no longer present ST (T wave) deviation no longer present Electronically Signed On 12-14-17 12:25:54 CDT by Andrea Rao
[2017-12-14] MEDS: LORazepam 2 MG/ML VIAL IV PRN (14:24)
[2017-12-14] MEDS ORDERED: VANCOMYCIN 500 MG in NA CHLORIDE 0.9% 100 ML IV SCH (15:00)
--- NOTE | 2017-12-14 15:51 | PN ---
History: Currently, patient lying in bed. She is intubated, but she is awake. She is able to follo w commands. She is getting hemodialysis. She has no chest pain. No abdominal pain. She is comfort able, while she is getting her dialysis. Physical Examination: Vital Signs: Blood pressure is 145/66, respiratory rate 20, heart rate 71, temperature 96.7. General: She is alert and able to follow commands. She is not able to talk due to the intubation. HEENT: Atraumatic, normocephalic. PERRLA. Oral mucosa is moist. Neck: Supple. No JVD. No bruits. Chest: Decreased breath sounds with expiratory wheezing. Heart: Regular rate and rhythm. S1, S2 normal. No murmur or gallop. Abdomen: Soft, nontender. She has positive bowel sounds. Extremities: +2 edema bilateral lower extremity with some erythema, warmth, tenderness. Neuro: Deferred as patient is intubated. Laboratory Data: Today, showed CBC with white blood cells of 4.2, hemoglobin 9.8, platelets 91. Anyi gus showed a BUN of 31, creatinine 2.7, glucose in the range of 177 to 207. ABG was normal this m orning with pH of 7.44. Assessment And Plan: 1.Respiratory failure acute on chronic. Continue on the vent at this point. I appreciate Dr. Liudmila arreaga's help. The patient will continue on bronchodilator, prednisone 20 mg twice a day. Plan to wean and extubate if possible. 2.Acute on chronic. The diastolic congestive heart failure. The patient with end-stage congestive heart failure. She is currently receiving dialysis. Nephrology on board. 3.Anemia, most likely of chronic disease. H and H are relatively stable, around 10. 4.Paroxysmal atrial fibrillation, rate controlled at this point, on Coreg. 5.Questionable cellulitis lower extremity. There was no DVT on Doppler. The patient on cefepime an d Vanco. 6.Thrombocytopenia, chronic. We will observe. No active bleeding. 7.Prognosis poor. We will follow. PENNY/ADITI Voice ID: [id number] Report ID: [id number]
[2017-12-14] MEDS: ENOXAPARIN 30 MG/0.3 ML SQ SCH (17:12)
[2017-12-14] MEDS: CEFEPIME/SWI 1gm 1 GM/10 ML SYR IV SCH (17:13)
[2017-12-14] MEDS ORDERED: CARVEDILOL 25 MG TAB ONE (20:30)
[2017-12-15] MEDS: METHYLPREDNISOLONE 40 MG INJ IV SCH ×3 (00:18→17:34)
[2017-12-15] MEDS: IPRATROPIUM BROM 0.5MG/2.5ML NEB SCH ×4 (01:40→20:02)
--- NOTE | 2017-12-15 03:20 | CON ---
Date of Consultation: 12/14/2017 Chief Complaint: End-stage renal disease, severe fluid overload, anasarca, respiratory failure, COPD exacerbation, severe congestive heart failure. History Of Present Illness: The patient is 87-year-old woman with history of end-stage COPD, advanced chronic congestive heart failure. The patient presented to the hospital after dialysis because of progressively worse shortness of breath, acute respiratory failure. The patient was 1 hour into home dialysis session and developed sudden onset of severe respiratory distress. EMS was called. On arrival to the hospital, the patient had agonal breathing. She was intubated. She was admitted to ICU and remains on ventilator. The patient was started on Lasix for volume control. Dialysis is scheduled today with ultrafiltration to control fluid overload. The patient has anasarca. Review of Systems: Unobtainable. The patient is intubated, cannot provide review of systems. Past Medical History: Congestive heart failure, hypertensive heart and kidney disease, atrial fibrillation, GERD, anemia, coronary artery disease, peripheral vascular disease, hyperlipidemia, pacemaker, coronary stents, kidney stents and lower extremity stents, bilateral lens implant, bilateral carpal tunnel repair, hysterectomy, appendectomy, tonsillectomy. Family History: Heart disease, diabetes. Social History: Denies tobacco, alcohol, or illicit drugs. Physical Examination: General: The patient is awake, alert, follows commands. HEENT: Eyes anicteric. Sclerae EOMI. Ears, nose, mouth, and throat; oral mucosa moist. No pallor. Neck: Supple. No JVD. No bruits. Lungs: Crackles bilaterally. no wheezing Heart: S1, S2. no pericardial friction rub Abdomen: Soft, benign. normal bowel sounds Extremities: Anasarca, no cellulitis Neurological: Moving extremities. Cranial nerves intact. Psychiatric: Alert, but cannot provide review of systems because of intubation. Laboratory Data: Sodium 145, potassium 4.3, BUN 26, creatinine 2.4, glucose 203 , magnesium 2.2. Impression And Plan: 1. Severe acute respiratory failure. The patient will remain on ventilator. Continue mechanical ventilation. 2. Congestive heart failure, severe acute on chronic systolic dysfunction, and exacerbation of chronic obstructive pulmonary disease. Continue treatment for chronic obstructive pulmonary disease exacerbation. The patient has fluid overload, anasarca. The patient will have dialysis with ultrafiltration. The patient may require daily dialysis. Continue diuresis with IV Lasix. 3. Paroxysmal atrial fibrillation. Monitor and adjust medication for rate control. 4. Anemia of chronic kidney disease. Monitor hemoglobin level. Adjust ROMELIA. 5. Renal osteodystrophy. The patient is currently intubated. The patient may require TPN. STEPHON/ADITI Voice ID: [id number] Report ID: [id number] MTDD
[2017-12-15 05:38] LABS: Absolute Lymphocytes (CBC) 0.3 K/uL (0.7-4.9); Absolute Monocytes 0.3 K/uL (0.1-1.3); Absolute Neutrophil 4.7 K/uL (1.8-8.0); Basophils % 0.1 % (0-1.3); Hematocrit 28.9 % (36.0-45.0); Lymphocytes % 5.9 % (15.3-44.8); MCH 30.1 pg (27.0-35.0); MCV 92.1 fL (80-100); MPV 9.7 fL (7.6-11.3); Monocytes % 4.8 % (3.3-12.3); RBC Red Blood Cell Count 3.14 M/uL (3.86-4.86)
[2017-12-15 05:46] LABS: Potassium 4.2 mmol/L (3.5-5.1)
[2017-12-15] MEDS: INSULIN -REGULAR HUMAN 50 UNIT/0.5 ML ML SQ SCH ×4 (06:00→17:35)
[2017-12-15] MEDS: ARFORMOTEROL TARTRATE 15 MCG/2 ML VIAL.NEB NEB SCH ×2 (07:32→20:02)
[2017-12-15] MEDS: FUROSEMIDE 40 MG/4 ML VIAL IV SCH ×2 (08:11→17:34)
[2017-12-15] MEDS: CARVEDILOL 25 MG TAB PO SCH ×2 (08:11→20:25)
[2017-12-15] MEDS: CLOPIDOGREL 75 MG TABLET PO SCH (08:12)
--- NOTE | 2017-12-15 16:34 | PN ---
Subjective: Currently, patient lying in bed. She looks comfortable. She was extubated yesterday. She had no chest pain. No abdominal pain. No fever. No chills overnight. She received dialysis ye sterday. She will be started on clear liquid diet soon today. Objective: Vital Signs: Currently, blood pressure 150/70, respiratory rate 22, pulse 90, temperatur e 97. General: The patient is alert, oriented x3. Does not look in any distress. HEENT: Atraumatic, normocephalic. PERRLA. Oral mucosa is moist. Neck: Supple. No JVD. No bruits. Chest: Clear to auscultation. Good air entry. Heart: Regular rate and rhythm. S1, S2 normal. No gallop or murmur. Abdomen: Soft, nontender. No masses. No hepatosplenomegaly. Positive bowel sounds. Extremities: No clubbing or cyanosis but there is some erythema, tenderness, +1 edema both lower ext remities. Neurologic: Grossly intact. Cranial Nerves: 2 through 12 intact. Normal sensation. Normal reflexes. Normal muscle strength. Laboratory Data: Today, showed CBC within normal except for hemoglobin 5.5, platelets 105. Chemistr y within normal except for creatinine of 2.1, BUN of 26, glucose in the range of 159 to 188. Assessment And Plan: 1.Respiratory failure acute on chronic, much better now. The patient was extubated yesterday. Appr chioma Canseco's input. The patient on prednisone 20 mg twice a day and bronchodilator, doing v bridgett well. 2.Acute on chronic diastolic CHF. The patient had hemodialysis yesterday and she is doing much bett er. 3.End-stage renal disease. The patient received dialysis yesterday and she looked very euvolemic. 4.Anemia, most likely of chronic disease. The patient is relatively stable at around 10. 5.Paroxysmal atrial fibrillation, rate controlled. Continue Coreg as before. 6.Questionable cellulitis of the lower extremity with erythema, tenderness. Doppler was negative fo r DVT. The patient on broad-spectrum IV antibiotics with cefepime and vancomycin. So far, blood cul ture all seemed negative. 7.Thrombocytopenia better today. No active bleeding. 8.Transfer to the floor whenever possible when bed available. 9.Need physical therapy. 10.Start clear liquid diet and advance as tolerated. MT/MODL Voice ID: [id number] Report ID: [id number]
[2017-12-15] MEDS: ENOXAPARIN 30 MG/0.3 ML SQ SCH (17:34)
[2017-12-15] MEDS: CEFEPIME/SWI 1gm 1 GM/10 ML SYR IV SCH (17:35)
[2017-12-16] MEDS: METHYLPREDNISOLONE 40 MG INJ IV SCH (00:16)
[2017-12-16] MEDS: IPRATROPIUM BROM 0.5MG/2.5ML NEB SCH ×4 (01:44→20:00)
[2017-12-16] MEDS: INSULIN -REGULAR HUMAN 50 UNIT/0.5 ML ML SQ SCH ×4 (06:00→17:51)
[2017-12-16] MEDS: ARFORMOTEROL TARTRATE 15 MCG/2 ML VIAL.NEB NEB SCH ×2 (07:16→20:29)
--- NOTE | 2017-12-16 08:27 | P.PN ---
Subjective Date of Service: 12/16/17 Chief Complaint: COPD exacerbation Subjective: Improving (Patient is doing well was extubated yesterday she is currently alert oriented responsive cooperative) Review of Systems Unremarkable Physical Examination - Vital Signs Temperature: 97.7 F Blood Pressure: 147/83 Pulse: 90 Respirations: 24 Pulse Ox (%): 99 - Physical Exam General: Alert, Cooperative Respiratory: Clear to auscultation bilaterally, Diminished Cardiovascular: No edema, Regular rate/rhythm - Studies Microbiology Data (last 24 hrs): 12/13/17 14:39 Sputum Gram Stain - Final Assessment & Plan - Problems (Diagnosis) (1) Acute and chronic respiratory failure ([id number]) Current Visit: Yes Status: Resolved Plan: Patient is 87 years of age admitted with acute on chronic respiratory failure currently doing much better failed SVT this morning no evidence of DVT patient is allergic to contrast no clinical evidence of sepsis continue with present therapy possible wean and extubate either today or tomorrow antibiotics can be Dc eat cultures and negative 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 prednisone 20 mg twice a day once off ventilator continue with bronchodilators patient is scheduled to undergo dialysis today patient is on minimal oxygen 25% Qualifiers: Respiratory failure complication: hypoxia and hypercapnia Qualified Code(s) : J96.21 - Acute and chronic respiratory failure with hypoxia; J96.22 - Acute and chronic respiratory failure with hypercapnia (2) COPD exacerbation Onset Date: 10/18/17 Current Visit: No Status: Acute Plan: Patient is 87 years of age admitted with COPD exacerbation currently doing much better awaiting transfer to the floors medications reviewed and adjusted Changed to prednisone p.o. 10 mg twice a day Dc all antibiotics at doxycycline for Staph I suggest the patient go home on a long-acting bronchodilator example Sammi or performist
[2017-12-16] MEDS: FUROSEMIDE 40 MG/4 ML VIAL IV SCH ×2 (08:35→17:35)
[2017-12-16] MEDS: CLOPIDOGREL 75 MG TABLET PO SCH (08:35)
[2017-12-16] MEDS: CARVEDILOL 25 MG TAB PO SCH ×2 (08:35→20:34)
[2017-12-16] MEDS: predniSONE 10 MG TAB PO SCH ×2 (08:38→20:34)
[2017-12-16] MEDS: DOXYCYCLINE 100 MG CAP PO SCH ×2 (09:00→20:34)
--- NOTE | 2017-12-16 10:49 | ECHO ---
HEIGHT: 5 ft 1 in WEIGHT: 127 lb 9.6 oz DATE OF STUDY: 12/16/[address]: Gaurav Canseco MD 2-DIMENSIONAL: YES M.MODE: YES DOPPLER: YES COLOR FLOW: YES TDS: NO PORTABLE: YES DEFINITY: NO BUBBLE STUDY: NO DIAGNOSIS: CONGESTIVE HEART FAILURE CARDIAC HISTORY: CATHERIZATION: SURGERY: PROSTHETIC VALVE: PACEMAKER: MEASUREMENTS (cm) DIASTOLIC (NORMALS) SYSTOLIC (NORMALS) IVSd 1.8 (0.6-1.2) LA Diam 4.8 (1.9-4.0) LVEF 45-49% LVIDd 4.4 (3.5-5.7) LVIDs 3.6 (2.0-3.5) %FS % LVPWd 1.8 (0.6-1.2) Ao Diam 2.9 (2.0-3.7) 2 DIMENSIONAL ASSESSMENT: RIGHT ATRIUM: DILATED LEFT ATRIUM: DILATED RIGHT VENTRICLE: PACEMAKER IN RIGHT VENTRICLE LEFT VENTRICLE: LEFT VENTRICULAR HYPERTROPHY, SEVERE TRICUSPID VALVE: NORMAL MITRAL VALVE: MITRAL ANNULAR CALCIFICATION PULMONIC VALVE: NORMAL AORTIC VALVE: SCLEROSIS PERICARDIAL EFFUSION: NONE AORTIC ROOT: NORMAL LEFT VENTRICULAR WALL MOTION: MILD GLOBAL HYPOKINESIS, PARADOXICAL SEPTAL MOTION. DOPPLER/COLOR FLOW: MILD MITRAL AND TRICUSPID REGURGITATION. MODERATE PULMONARY HYPERTENSION ESTIMATED RIGHT VENTRICULAR SYSTOLIC PRESSURE 50-55mmHg. NO AORTIC STENOSIS OR AORTIC REGURGITATION. COMMENTS: MILDLY DEPRESSED LEFT VENTRICULAR EJECTION FRACTION WITH PARADOXICAL SEPTAL MOTION. DILATED LEFT AND RIGHT ATRIUM. MILD MITRAL AND TRICUSPID REGURGITATION. SEVERE LEFT VENTRICULAR HYPERTROPHY. AORTIC SCLEROSIS WITH NO AORTIC STENOSIS/ AORTIC REGURGITATION. PACEMAKER IN RIGHT VENTRICLE. MITRAL ANNULAR CALCIFICATION, HEAVY. MODERATE PULMONARY HYPERTENSION. TECHNOLOGIST: PRITI JOY
[2017-12-16] MEDS: ENOXAPARIN 30 MG/0.3 ML SQ SCH (17:34)
--- NOTE | 2017-12-16 18:36 | P.PN ---
Subjective Date of Service: 12/16/17 Chief Complaint: COPD exacerbation Physical Examination - Vital Signs Temperature: 98.3 F Blood Pressure: 147/64 Pulse: 88 Respirations: 24 Pulse Ox (%): 96 - Studies Microbiology Data (last 24 hrs): 12/13/17 14:39 Sputum Gram Stain - Final 12/13/17 14:39 Sputum Culture & Sensitivity - Final Staph Aureus Assessment And Plan - Current Problems (Diagnosis) (1) Acute respiratory failure Onset Date: 04/24/17 Current Visit: No Status: Acute Qualifiers: Respiratory failure complication: hypoxia Qualified Code(s): J96.01 - Acute respiratory failure with hypoxia (2) Acute on chronic diastolic CHF (congestive heart failure) Onset Date: 04/24/17 Current Visit: No Status: Acute (3) COPD exacerbation Onset Date: 10/18/17 Current Visit: No Status: Acute (4) Paroxysmal A-fib Onset Date: 06/24/17 Current Visit: No Status: Acute (5) Anemia, chronic disease Onset Date: 10/18/17 Current Visit: No Status: Chronic (6) ESRD (end stage renal disease) on dialysis Onset Date: 12/16/17 Current Visit: Yes Status: Acute Plan: . - Plan Assessment And Plan: 1. Respiratory failure acute on chronic, much better now. The patient was extubated yesterday. Appreciate Dr. Canseco's input. The patient on prednisone 10 mg twice a day and bronchodilator, doing very well. 2. Acute on chronic diastolic CHF. The patient had hemodialysis yesterday and she is doing much better. 3. End-stage renal disease. The patient received dialysis yesterday and she looked very euvolemic. 4. Anemia, most likely of chronic disease. The patient is relatively stable at around 10. 5. Paroxysmal atrial fibrillation, rate controlled. Continue Coreg as before. 6. Questionable cellulitis of the lower extremity with erythema, tenderness. Doppler was negative for DVT. The patient on broad-spectrum IV antibiotics with cefepime and vancomycin. So far, blood culture all seemed negative. 7. Thrombocytopenia better today. No active bleeding. 8. Transfer to the floor whenever possible when bed available. 9. Need physical therapy. 10. Start clear liquid diet and advance as tolerated. Poor/guarded prognosis. Will need to discuss code status with family.
--- NOTE | 2017-12-17 01:24 | PN ---
Date of Progress Note: 12/16/2017 Chief Complaint: Severe respiratory failure. Subjective: The patient required an intubation. The patient was found to have COPD exacerbation. The patient has fluid overload, congestive heart failure with diastolic dysfunction. Dialysis was ordered on Saturday to control fluid overload. Today, the patient will resume dialysis and I reviewed case with the patient to explain current condition. Review of Systems: Denies fever, chills. Physical Examination: Lungs: Clear to auscultation bilaterally. Heart: S1-S2. Abdomen: Soft, benign. Extremities: A 2+ edema. Impression And Plan: 1. End-stage renal disease. Continue dialysis to control fluid overload and treat anasarca. The patient has multiple medical problems. 2.The patient will continue binders for renal osteodystrophy and to control phosphorus level. 3. COPD exacerbation on treatment, deconditioning per primary team. 4 . Severe congestive heart failure exacerbation , continue hemodialysis. STEPHON/ADITI Voice ID: [id number] Report ID: [id number] MTDD
[2017-12-17] MEDS: IPRATROPIUM BROM 0.5MG/2.5ML NEB SCH ×4 (01:50→20:13)
[2017-12-17 02:52] LABS: HBsAG Nonreactive (Nonreactive)
[2017-12-17 05:51] LABS: Phosphorus 2.1 mg/dL (2.5-4.9); Potassium 4.1 mmol/L (3.5-5.1)
[2017-12-17] MEDS: INSULIN -REGULAR HUMAN 50 UNIT/0.5 ML ML SQ SCH ×4 (06:00→17:35)
[2017-12-17] MEDS: POTASS/SODIUM PHOSPHATE 1 PKT POWD.PACK PO SCH ×3 (08:25→12:51)
[2017-12-17] MEDS: CLOPIDOGREL 75 MG TABLET PO SCH (08:25)
[2017-12-17] MEDS: FUROSEMIDE 40 MG/4 ML VIAL IV SCH (08:25)
[2017-12-17] MEDS: CARVEDILOL 25 MG TAB PO SCH (08:25)
[2017-12-17] MEDS: predniSONE 10 MG TAB PO SCH ×2 (08:25→20:38)
[2017-12-17] MEDS: DOXYCYCLINE 100 MG CAP PO SCH ×2 (08:25→20:38)
[2017-12-17] MEDS: ARFORMOTEROL TARTRATE 15 MCG/2 ML VIAL.NEB NEB SCH ×2 (08:48→20:13)
--- NOTE | 2017-12-17 11:23 | RAD REPORT ---
EXAM DESCRIPTION: RAD - Chest Single View - 12/17/2017 11:02 am CLINICAL HISTORY: fluid overload Chest pain. COMPARISON: Chest Single View dated 12/13/2017; Chest Single View dated 11/19/2017; Chest Single View dated 11/14/2017; Chest Single View dated 11/13/2017 FINDINGS: Portable technique limits examination quality. Ill-defined opacity is present in the left lung base with a small left pleural effusion. This likely represents infiltrate/aspiration. Emphysematous changes are present throughout the lungs. The heart i s moderately enlarged with a dual lead pacer device present.Left-sided dialysis catheter has tip in t he SVC. IMPRESSION: Poorly defined opacity in the medial left lung base with small left pleural effusion lik romulo represents aspiration or pneumonia.
--- NOTE | 2017-12-17 11:31 | RAD REPORT ---
EXAM DESCRIPTION: CT - Head Brain Wo Cont - 12/17/2017 11:19 am CLINICAL HISTORY: r/o infarction CVA, drowsiness COMPARISON: HEAD BRAIN W O CONTRAST dated 04/03/2010; HEAD BRAIN W O CONTRAST dated 11/18/2009 TECHNIQUE: All CT scans are performed using dose optimization technique as appropriate and may inclu de automated exposure control or mA/KV adjustment according to patient size. FINDINGS: No intracranial hemorrhage, hydrocephalus or extra-axial fluid collection.Moderate brain a trophy is present.No areas of brain edema or evidence of midline shift. Bfwu-zl-vlmwmmas low-density in the periventricular and deep white matter is present compatible with chronic microvascular ischemi c changes. Punctate calcifications along the sulci of the brain on the right suggests previous neuroc ysticercosis. The paranasal sinuses and mastoids are clear. The calvarium is intact. IMPRESSION: No acute intracranial abnormality. Moderate brain atrophy. If there is continued clinical concern for CVA, MR imaging of the brain would be recommended.
[2017-12-17] MEDS: EPOETIN ALFA 10,000 UNIT/ML VIAL IV SCH (14:03)
--- NOTE | 2017-12-17 16:15 | PN ---
Date of Progress Note: 12/17/2017 Subjective: The patient was admitted with respiratory failure, intubated, extubated on 12/15/2017. The patient apparently has apnea multiple time on , on the vent on the weaning trial and her admission was because of a sudden respiratory arrest and hypoxemia. At that time, her workup show hypercapnic respiratory failure. Her CO2 was 49, O2 was >400. The patient did not have any cardiac arrest. No CPR was done. Yesterday, the patient had dialysis, we managed to remove 1900. The patient still have shortness of breath. Physical Examination: Vital Signs: Blood pressure 133/74, pulse of 69. Chest: Crackles bilateral base with wheezing bilateral. Heart: S1 and S2, systolic murmur. Abdomen: Soft, nontender. Extremities: No edema. Laboratory Data: WBC 5.3, H and H 9.5/28.9, platelets 105. Sodium 138, potassium 4.1, bicarb 32, BUN 27, creatinine of 2. The patient is oliguric. Calcium 7.8, magnesium 2.1. Chest x-ray showed no pulmonary edema on the chest x-ray done on the admission, currently possible left lung base consolidation and left pleural effusion. Suspect of pneumonia. Current Medications: The patient on its include carvedilol 25 b.i.d., metoprolol p.r.n., Lasix 40 b.i.d., Zofran, prednisone 10 b.i.d., fentanyl. Assessment And Plan: 1. End-stage renal disease secondary to cardiorenal, looked to me slightly on the over volume . I am going to go ahead and do sequential dialysis tomorrow, then the patient can go back to her regular dialysis. We will monitor the patient. 2. Hypertension. I am going to utilize blood pressure for more ultrafiltration. I am going to go ahead and decrease her carvedilol to 6.25 and we will monitor the patient. 3. Anemia of chronic kidney disease. I am going to resume the patient on Epogen and we will follow up. 4. Recurrent apnea. Follow up with Pulmonary. We will get CT brain. 5. Congestive heart failure. We will try to establish better volume control with ultrafiltration today and we will follow up. SID Voice ID: [id number] Report ID: [id number] MTDD
[2017-12-17] MEDS: ENOXAPARIN 30 MG/0.3 ML SQ SCH (17:35)
--- NOTE | 2017-12-17 18:36 | P.PN ---
Subjective Date of Service: 12/17/17 Chief Complaint: COPD exacerbation Seen and examined at bedside. No family at bedside. On nasal cannula, reports much improved breathing from initial with this admission. She is status post 2 dialysis sessions. No further complaints or concerns today. Review of Systems As noted above Physical Examination - Vital Signs Temperature: 98.0 F Blood Pressure: 163/74 Pulse: 82 Respirations: 24 Pulse Ox (%): 100 - Physical Exam General: Alert, In no apparent distress HEENT: Atraumatic, PERRLA, EOMI Neck: Supple, JVD not distended Respiratory: Diminished, Crackles/rales, Expiratory wheezes Cardiovascular: Regular rate/rhythm, Normal S1 S2 Gastrointestinal: Normal bowel sounds, No tenderness Musculoskeletal: No tenderness Integumentary: No rashes Neurological: Normal speech, Normal tone, Normal affect Lymphatics: No axilla or inguinal lymphadenopathy Assessment And Plan - Current Problems (Diagnosis) (1) Acute respiratory failure Onset Date: 04/24/17 Current Visit: No Status: Acute Qualifiers: Respiratory failure complication: hypoxia Qualified Code(s): J96.01 - Acute respiratory failure with hypoxia (2) Acute on chronic diastolic CHF (congestive heart failure) Onset Date: 04/24/17 Current Visit: No Status: Acute (3) COPD exacerbation Onset Date: 10/18/17 Current Visit: No Status: Acute (4) Paroxysmal A-fib Onset Date: 06/24/17 Current Visit: No Status: Acute (5) Anemia, chronic disease Onset Date: 10/18/17 Current Visit: No Status: Chronic (6) ESRD (end stage renal disease) on dialysis Onset Date: 12/16/17 Current Visit: Yes Status: Acute - Plan Assessment And Plan: 1. Respiratory failure acute on chronic, much better now. The patient was extubated 12/15/[address] Canseco's input. The patient on prednisone 10 mg twice a day and bronchodilator, doing very well. 2. Acute on chronic diastolic CHF. The patient had hemodialysis yesterday and she is doing much better. Nephrology on board, recommendations appreciated 3. End-stage renal disease. The patient received dialysis yesterday and she looked very euvolemic. 4. Anemia, most likely of chronic disease. The patient is relatively stable at around 10. 5. Paroxysmal atrial fibrillation, rate controlled. Continue Coreg as before. 6. Questionable cellulitis of the lower extremity with erythema, tenderness. Doppler was negative for DVT. The patient on broad-spectrum IV antibiotics with cefepime and vancomycin. So far, blood culture all seemed negative. 7. Thrombocytopenia better today. No active bleeding. 8. Transfer to the floor whenever possible when bed available. 9. Need physical therapy. 10. Start clear liquid diet and advance as tolerated. Poor/guarded prognosis. Will need to discuss code status with family.
[2017-12-17] MEDS: CARVEDILOL 6.25 MG TAB PO SCH (20:37)
[2017-12-18] MEDS: IPRATROPIUM BROM 0.5MG/2.5ML NEB SCH ×4 (01:56→20:05)
[2017-12-18] MEDS: INSULIN -REGULAR HUMAN 50 UNIT/0.5 ML ML SQ SCH ×4 (06:00→18:00)
[2017-12-18] MEDS: ARFORMOTEROL TARTRATE 15 MCG/2 ML VIAL.NEB NEB SCH ×4 (07:33→20:05)
[2017-12-18 07:44] LABS: Magnesium 1.7 mg/dL (1.8-2.4); Phosphorus 3.4 mg/dL (2.5-4.9); Potassium 4.8 mmol/L (3.5-5.1)
[2017-12-18] MEDS ORDERED: MAGNESIUM SULFATE 1 gm IVPB 1 GM/100 ML BAG IV ONE (09:00)
[2017-12-18] MEDS: DOXYCYCLINE 100 MG CAP PO SCH ×2 (09:19→22:32)
[2017-12-18] MEDS: CARVEDILOL 6.25 MG TAB PO SCH ×2 (09:19→22:32)
[2017-12-18] MEDS: CLOPIDOGREL 75 MG TABLET PO SCH (09:20)
[2017-12-18] MEDS: predniSONE 10 MG TAB PO SCH ×2 (09:20→22:32)
[2017-12-18] MEDS: EPOETIN ALFA 10,000 UNIT/ML VIAL IV SCH (12:25)
--- NOTE | 2017-12-18 16:43 | PN ---
Date of Progress Note: 12/18/2017 Subjective: The patient was admitted with respiratory failure secondary to hypercapnic and apnea, in tubated and extubated. The patient had dialysis yesterday just sequential. We will remove 1.5. Teddy juan, patient seen on dialysis for her regular session. Physical Examination: Vital Signs: Blood pressure 146/70, pulse of 80, afebrile. Chest: Clear to auscultation. Heart: S1, S2. Systolic murmur. Abdomen: Soft, nontender. Extremities: No edema. Laboratory Data: H and H 9.5/28.9. Sodium 135, potassium 4.8, bicarb 31, BUN 38, creatinine 2.5, ca lcium 7.9, phosphorus 3.4, magnesium 1.7. Current Medications: The patient on medication berumen heparin, Epogen, carvedilol 6.25 b.i.d., Tylenol , breathing treatment, prednisone 10 mg b.i.d. and on oxygen. Assessment And Plan: 1.End-stage renal disease, currently normal volume. We will continue dialysis. We will place the p atient back on her schedule as Saturday, Saturday, and Saturday. 2.Secondary hyperparathyroidism, stable. I going to go ahead keep holding binder. 3.Anemia of chronic kidney disease. Continue Epogen. 4.Chronic obstructive pulmonary disease exacerbation with apnea. Central source as CVA has been rul ed out. We will follow up with Pulmonary. The patient cleared from the renal standpoint for discharge planning to continue on her d ialysis. JESSICA/ADITI Voice ID: [id number] Report ID: [id number]
--- NOTE | 2017-12-18 17:14 | P.PN ---
Subjective Date of Service: 12/18/17 Chief Complaint: COPD exacerbation Patient Seen and examined at bedside. No family at bedside. On nasal cannula, reports much improved breathing from initial with this admission. She is status post 3 dialysis sessions. No further complaints or concerns today. Review of Systems As noted above Physical Examination - Vital Signs Temperature: 96.7 F Blood Pressure: 140/63 Pulse: 101 Respirations: 24 Pulse Ox (%): 97 - Physical Exam General: Alert, In no apparent distress HEENT: Atraumatic, PERRLA, EOMI Neck: Supple, JVD not distended Respiratory: Normal air movement, Diminished, Expiratory wheezes Cardiovascular: Regular rate/rhythm, Normal S1 S2 Gastrointestinal: Normal bowel sounds, No tenderness Musculoskeletal: No tenderness Integumentary: No rashes Neurological: Normal speech, Normal tone, Normal affect Lymphatics: No axilla or inguinal lymphadenopathy - Studies Microbiology Data (last 24 hrs): 12/13/17 14:40 Blood - Blood Aerobic Blood Culture - Final No growth in 5 days. 12/13/17 14:40 Blood - Blood Anaerobic Blood Culture - Final No growth in 5 days. 12/13/17 14:25 Blood - Blood Aerobic Blood Culture - Final No growth in 5 days. 12/13/17 14:25 Blood - Blood Anaerobic Blood Culture - Final No growth in 5 days. Medications List Reviewed: Yes Assessment And Plan - Current Problems (Diagnosis) (1) Acute respiratory failure Onset Date: 04/24/17 Current Visit: No Status: Acute Qualifiers: Respiratory failure complication: hypoxia Qualified Code(s): J96.01 - Acute respiratory failure with hypoxia (2) Acute on chronic diastolic CHF (congestive heart failure) Onset Date: 04/24/17 Current Visit: No Status: Acute Plan: . (3) COPD exacerbation Onset Date: 10/18/17 Current Visit: No Status: Acute (4) Paroxysmal A-fib Onset Date: 06/24/17 Current Visit: No Status: Acute (5) Anemia, chronic disease Onset Date: 10/18/17 Current Visit: No Status: Chronic (6) ESRD (end stage renal disease) on dialysis Onset Date: 12/16/17 Current Visit: Yes Status: Acute - Plan Assessment And Plan: 1. Respiratory failure acute on chronic, much better now. The patient was extubated 12/15/[address] Canseco's input. The patient on prednisone 10 mg twice a day and bronchodilator, doing very well. Continue oral doxycycline. She will be discharged on oral doxycycline and Brovana 2. Acute on chronic diastolic CHF. The patient had hemodialysis today and she is doing much better. Nephrology on board, recommendations appreciated 3. End-stage renal disease. The patient received dialysis today. 4. Anemia, most likely of chronic disease. The patient is relatively stable without any evidence of bleeding.. 5. Paroxysmal atrial fibrillation, rate controlled. Continue Coreg as before. 6. Questionable cellulitis of the lower extremity with erythema, tenderness. Doppler was negative for DVT. Discontinue IV antibiotics. So far, blood culture all negative. 7. Thrombocytopenia better today. No active bleeding. Plan to discharge home tomorrow. Patient does not have a ride today so unable to go home today.
[2017-12-18] MEDS: ENOXAPARIN 30 MG/0.3 ML SQ SCH (18:00)
[2017-12-19 02:04] LABS: Potassium 4.4 mmol/L (3.5-5.1)
[2017-12-19] MEDS: IPRATROPIUM BROM 0.5MG/2.5ML NEB SCH ×3 (02:10→13:15)
[2017-12-19] MEDS ORDERED: POLYETHYL GLY 3350 17 GM/DOSE PO PRN (05:14)
[2017-12-19 05:32] VITALS: BMI 22.9
[2017-12-19] MEDS: INSULIN -REGULAR HUMAN 50 UNIT/0.5 ML ML SQ SCH ×3 (06:00→11:54)
[2017-12-19] MEDS: ARFORMOTEROL TARTRATE 15 MCG/2 ML VIAL.NEB NEB SCH (08:00)
[2017-12-19] MEDS: CLOPIDOGREL 75 MG TABLET PO SCH (08:41)
[2017-12-19] MEDS: DOXYCYCLINE 100 MG CAP PO SCH (08:41)
[2017-12-19] MEDS: CARVEDILOL 6.25 MG TAB PO SCH (08:41)
[2017-12-19] MEDS: predniSONE 10 MG TAB PO SCH (08:41)
--- NOTE | 2017-12-19 08:48 | P.PN ---
Subjective Date of Service: 12/19/17 Chief Complaint: COPD exacerbation Subjective: Improving (Patient is doing much better refuses Brovana) Review of Systems Unremarkable Physical Examination - Vital Signs Temperature: 97.6 F Blood Pressure: 152/80 Pulse: 75 Respirations: 22 Pulse Ox (%): 100 - Physical Exam General: Alert, Oriented x3 Respiratory: Clear to auscultation bilaterally, Diminished Cardiovascular: No edema, Normal S1 S2 - Studies Microbiology Data (last 24 hrs): 12/13/17 14:40 Blood - Blood Aerobic Blood Culture - Final No growth in 5 days. 12/13/17 14:40 Blood - Blood Anaerobic Blood Culture - Final No growth in 5 days. 12/13/17 14:25 Blood - Blood Aerobic Blood Culture - Final No growth in 5 days. 12/13/17 14:25 Blood - Blood Anaerobic Blood Culture - Final No growth in 5 days. Medications List Reviewed: Yes Assessment & Plan - Problems (Diagnosis) (1) COPD exacerbation Onset Date: 10/18/17 Current Visit: No Status: Acute Plan: Patient is 87 years of age admitted with COPD exacerbation patient has refused Brovana. I have sent a prescription for Anoro patient to continue with low- dose prednisone for about a week use nebulizers as needed probably has underlying diastolic dysfunction is on dialysis discharge today follow with me in 2 weeks
[2017-12-19 11:28] VITALS: O2SAT 98
--- NOTE | 2017-12-19 11:59 | P.DS ---
Admission Date: 12/13/17 Discharge Date: 12/19/17 Primary Care Provider: Dr. Curiel Disposition: ROUTINE DISCHARGE Discharge Condition: FAIR Reason for Admission: COPD exacerbation Consultations: Pulmonary-Dr. Canseco Nephrology-Dr. Sheldon Procedures: Echocardiogram: Ejection fraction 45% LEFT VENTRICULAR WALL MOTION: MILD GLOBAL HYPOKINESIS, PARADOXICAL SEPTAL MOTION. DOPPLER/COLOR FLOW: MILD MITRAL AND TRICUSPID REGURGITATION. MODERATE PULMONARY HYPERTENSION ESTIMATED RIGHT VENTRICULAR SYSTOLIC PRESSURE 50- 55mmHg. NO AORTIC STENOSIS OR AORTIC REGURGITATION. COMMENTS: MILDLY DEPRESSED LEFT VENTRICULAR EJECTION FRACTION WITH PARADOXICAL SEPTAL MOTION. DILATED LEFT AND RIGHT ATRIUM. MILD MITRAL AND TRICUSPID REGURGITATION. SEVERE LEFT VENTRICULAR HYPERTROPHY. AORTIC SCLEROSIS WITH NO AORTIC STENOSIS/ AORTIC REGURGITATION. PACEMAKER IN RIGHT VENTRICLE. MITRAL ANNULAR CALCIFICATION, HEAVY. MODERATE PULMONARY HYPERTENSION. CT head: COMPARISON: HEAD BRAIN W O CONTRAST dated 04/03/2010; HEAD BRAIN W O CONTRAST dated 11/18/2009 TECHNIQUE: All CT scans are performed using dose optimization technique as appropriate and may include automated exposure control or mA/KV adjustment according to patient size. FINDINGS: No intracranial hemorrhage, hydrocephalus or extra-axial fluid collection.Moderate brain atrophy is present.No areas of brain edema or evidence of midline shift. [place] low-density in the periventricular and deep white matter is present compatible with chronic microvascular ischemic changes. Punctate calcifications along the sulci of the brain on the right suggests previous neurocysticercosis. The paranasal sinuses and mastoids are clear. The calvarium is intact. IMPRESSION: No acute intracranial abnormality. Moderate brain atrophy. Venous Doppler: COMPARISON: None. TECHNIQUE: Real-time sonographic evaluation of the bilateral lower extremity common femoral, superficial femoral, popliteal and posterior tibial veins was performed. FINDINGS: Normal compressibility, flow augmentation, phasic flow and spontaneous flow are identified in the left and right lower extremity common femoral, superficial femoral, popliteal and posterior tibial veins. No intraluminal filling defects seen. IMPRESSION: No DVT in either lower extremity. Medical problem list: Acute respiratory failure secondary to COPD exacerbation, oxygen dependent complicated with acute on chronic diastolic CHF with moderate pulmonary hypertension along with medial left lung base pneumonia with small left pleural effusion likely aspiration End-stage renal disease on dialysis Atrial fibrillation with history of pacemaker Anemia of chronic disease Hyperlipidemia Hypertension Brief History of Present Illness: 87-year-old female presented emergency room with increasing shortness of breath. Patient recently started dialysis. Patient was getting dialysis at home. She had significant shortness of breath. EMS was called. Patient was evaluated the emergency room. Patient was intubated and sent to the ICU for management of acute respiratory failure. Hospital Course: Patient presented with acute respiratory failure. Patient found to have COPD exacerbation complicated with acute on chronic diastolic CHF with moderate pulmonary hypertension. Patient also found to have medial left lung base pneumonia with small left pleural effusion likely aspiration. Sputum cultures positive for Staph aureus. Patient seen and evaluated by pulmonology. Patient is oxygen dependent. At discharge she will continue with oxygen to maintain sats above 90%. Patient will continue with home health. At discharge she will continue with prednisone 10 mg 1 pill twice daily for 5 days then 1 pill once daily for 5 days. She will continue with doxycycline 100 mg 1 pill twice daily for 7 days. Patient will continue with ipratropium nebulized treatments 1 unit dose 3 times a day as needed for shortness of breath. Patient will be started on Anoro 1 puff daily. Recommendation to recheck chest x-ray in 2-4 weeks to monitor resolution. Patient will follow up with pulmonology in 1 week to follow up this hospitalization and continue her care. Patient with acute on chronic diastolic CHF with moderate pulmonary hypertension. At discharge she will continue with a 1500 cc per day fluid restriction and low-salt diet. Patient is to monitor her weight daily. If her weight increases by more than 5 lb she is to contact pulmonology or nephrology to further evaluate. Recommendation is for the patient to follow up with pulmonology as an outpatient to further monitor. Patient has end-stage renal disease on dialysis. Patient recently started dialysis and is getting dialysis at home. She will continue with dialysis at home. She will follow up with nephrology as directed. Patient with hyperlipidemia. Patient continue with Pravachol 80 mg daily. Patient with hypertension. Medications adjusted. Norvasc discontinued. At discharge patient will continue with carvedilol 25 mg 1 pill twice daily and losartan 100 mg 1 pill daily. Recommendation is to maintain blood pressures less 150/80. Further adjustment can be done by her PCP. Patient with history of atrial fibrillation with history of pacemaker and CAD. At discharge patient will continue with aspirin 81 mg daily, Plavix 75 mg 1 pill daily. Patient will follow up with cardiology to further address her condition. Patient with anemia of chronic disease. Patient continue with multi vitamin daily. Vital Signs/Physical Exam: Temp Pulse Resp BP Pulse Ox 97.6 F 75 22 H 152/80 H 100 12/19/17 08:48 12/19/17 08:48 12/19/17 08:48 12/19/17 08:48 12/19/17 08:48 General: Alert, In no apparent distress, Oriented x3, Cooperative HEENT: Atraumatic Neck: Supple Respiratory: Clear to auscultation bilaterally, Normal air movement Cardiovascular: Normal pulses, Regular rate/rhythm Gastrointestinal: Normal bowel sounds, Soft and benign, Non-distended, No tenderness, No masses, No rebound, No guarding Musculoskeletal: No erythema, No tenderness, No warmth Integumentary: No tenderness/swelling, No erythema, No warmth Neurological: Normal speech, Normal strength at 5/5 x4 extr, Normal tone, Normal affect Laboratory Data at Discharge: WBC 5.3 K/uL (4.3-10.9) D 12/15/17 05:13 Hgb 9.5 g/dL (12.0-15.0) L 12/15/17 05:13 Hct 28.9 % (36.0-45.0) L 12/15/17 05:13 Plt Count 105 K/uL (152-406) L 12/15/17 05:13 APTT Cancelled 12/13/17 18:40 Sodium 138 mmol/L (136-145) 12/19/17 01:17 Potassium 4.4 mmol/L (3.5-5.1) 12/19/17 01:17 BUN 20 mg/dL (7-18) H 12/19/17 01:17 Creatinine 1.90 mg/dL (0.55-1.3) H 12/19/17 01:17 Glucose 138 mg/dL (74-106) H 12/19/17 01:17 Phosphorus 3.4 mg/dL (2.5-4.9) D 12/18/17 07:17 Magnesium 2.0 mg/dL (1.8-2.4) 12/19/17 01:17 Total Bilirubin 0.5 mg/dL (0.2-1.0) 12/14/17 05:38 AST 32 U/L (15-37) 12/14/17 05:38 ALT 35 U/L (12-78) 12/14/17 05:38 Alkaline Phosphatase 66 U/L (45-117) 12/14/17 05:38 Home Medications: Carvedilol 25 mg PO BID 09/06/17 Clopidogrel Bisulfate [Plavix*] 75 mg PO DAILY 09/06/17 Losartan Potassium [Cozaar] 100 mg PO BEDTIME 09/06/17 Multivit,Ther Iron,Ca,FA & Min [Centrum Tablet*] 1 tab PO BEDTIME 09/06/17 Ascorbic Acid [Vitamin C] 250 mg PO DAILY 11/12/17 Aspirin 81 mg PO DAILY 11/12/17 Pravastatin Sodium [Pravachol] 80 mg PO DAILY 11/12/17 Ergocalciferol (Vitamin D2) [Vitamin D 50,000 Unit Cap] 1 cap PO EVERY 7TH DAY 12/14/17 Doxycycline Hyclate 100 mg PO BID #14 tablet 12/19/17 Ipratropium Neb [Atrovent*] 0.5 mg NEB TID PRN #90 amp 12/19/17 Umeclidinium Brm/Vilanterol Tr [Anoro Ellipta 62.5-25 Mcg INH] 1 each IH BID 30 Days #1 blst.w.dev 12/19/17 predniSONE [Deltasone*] 10 mg PO SEECOM #15 tab 12/19/17 New Medications: Doxycycline Hyclate 100 mg PO BID #14 tablet Ipratropium Neb [Atrovent*] 0.5 mg NEB TID PRN #90 amp PRN Reason: Shortness Of Breath predniSONE [Deltasone*] 10 mg PO SEECOM #15 tab Umeclidinium Brm/Vilanterol Tr [Anoro Ellipta 62.5-25 Mcg INH] 1 each IH BID 30 Days #1 blst.w.dev Patient Discharge Instructions: 1. Patient will follow up with her PCP in 1 week to follow up this hospitalization. 2. Patient presented with acute respiratory failure. Patient found to have COPD exacerbation complicated with acute on chronic diastolic CHF with moderate pulmonary hypertension. Patient also found to have medial left lung base pneumonia with small left pleural effusion likely aspiration. Sputum cultures positive for Staph aureus. Patient seen and evaluated by pulmonology. Patient is oxygen dependent. At discharge she will continue with oxygen to maintain sats above 90%. Patient will continue with home health. At discharge she will continue with prednisone 10 mg 1 pill twice daily for 5 days then 1 pill once daily for 5 days. She will continue with doxycycline 100 mg 1 pill twice daily for 7 days. Patient will continue with ipratropium nebulized treatments 1 unit dose 3 times a day as needed for shortness of breath. Patient will be started on Anoro 1 puff daily. Recommendation to recheck chest x-ray in 2-4 weeks to monitor resolution. Patient will follow up with pulmonology in 1 week to follow up this hospitalization and continue her care. 3. Patient with acute on chronic diastolic CHF with moderate pulmonary hypertension. At discharge she will continue with a 1500 cc per day fluid restriction and low-salt diet. Patient is to monitor her weight daily. If her weight increases by more than 5 lb she is to contact pulmonology or nephrology to further evaluate. Recommendation is for the patient to follow up with pulmonology as an outpatient to further monitor. 4. Patient has end-stage renal disease on dialysis. Patient recently started dialysis and is getting dialysis at home. She will continue with dialysis at home. She will follow up with nephrology as directed. 5. Patient with hyperlipidemia. Patient continue with Pravachol 80 mg daily. 6. Patient with hypertension. Medications adjusted. Norvasc discontinued. At discharge patient will continue with carvedilol 25 mg 1 pill twice daily and losartan 100 mg 1 pill daily. Recommendation is to maintain blood pressures less 150/80. Further adjustment can be done by her PCP. 7. Patient with history of atrial fibrillation with history of pacemaker and CAD. At discharge patient will continue with aspirin 81 mg daily, Plavix 75 mg 1 pill daily. Patient will follow up with cardiology to further address her condition. 8. Patient with anemia of chronic disease. Patient continue with multi vitamin daily. Diet: Regular Activity: Fall precautions Followup: Gaurav Canseco MD [ACTIVE - CAN ADMIT] - Time spent managing pt's care (in minutes): 55
[2017-12-19 13:33] VITALS: BP 140/74; TEMP 98
--- NOTE | 2017-12-19 21:55 | P.PN ---
Subjective Date of Service: 12/19/17 Primary Care Provider: Dr. Curiel Chief Complaint: COPD exacerbation Seen and examined before DC No new complaints cleared for dc from nephrology point of view Physical Examination - Vital Signs Temperature: 98 F Blood Pressure: 140/74 Pulse: 81 Respirations: 20 Pulse Ox (%): 98 - Physical Exam General: Alert, In no apparent distress HEENT: Atraumatic Respiratory: Diminished, Dull, Other Cardiovascular: No edema - Studies Medications List Reviewed: Yes Assessment And Plan - Current Problems (Diagnosis) (1) Hypertensive disorder, systemic arterial Onset Date: ~04/24/17 Status: Active (2) Acute exacerbation of chronic obstructive airways disease Status: Chronic (3) COPD exacerbation Onset Date: 10/18/17 Status: Acute (4) ESRD (end stage renal disease) on dialysis Onset Date: 12/16/17 Status: Chronic - Plan Assessment And Plan: 1.End-stage renal disease, currently normal volume. Will cont HD MWF . 2.Secondary hyperparathyroidism, stable . 3.Anemia of chronic kidney disease. Continue Epogen. 4.Chronic obstructive pulmonary disease exacerbation with apnea. improved now
== END 2017-12-19 15:24 | disposition home or self-care (01) | DRG 208 ==
LOC: ER 14:17 → ERHOLD 15:36 → 3RD-ICU 17:35 → 4TH 12-17 18:00
PROVIDERS: ADMIT Family Medicine; ATTEND Family Medicine
PROC: 5A1945Z Respiratory Ventilation, 24-96 Consecutive Hours (ICD-10-PCS; principal; 2017-12-13)
PROC: 5A1D70Z Performance of Urinary Filtration, Intermittent, Less than 6 Hours Per Day (ICD-10-PCS; 2017-12-14)
PROC: 5A1D70Z Performance of Urinary Filtration, Intermittent, Less than 6 Hours Per Day (ICD-10-PCS; 2017-12-16)
PROC: 5A1D70Z Performance of Urinary Filtration, Intermittent, Less than 6 Hours Per Day (ICD-10-PCS; 2017-12-17)
PROC: 5A1D70Z Performance of Urinary Filtration, Intermittent, Less than 6 Hours Per Day (ICD-10-PCS; 2017-12-18)
DX: J96.21 Acute and chronic respiratory failure with hypoxia (principal); I50.33 Acute on chronic diastolic (congestive) heart failure; N18.6 End stage renal disease; J69.0 Pneumonitis due to inhalation of food and vomit; J15.211 Pneumonia due to Methicillin susceptible Staphylococcus aureus; I13.2 Hypertensive heart and chronic kidney disease with heart failure and with stage 5 chronic kidney disease, or end stage renal disease; J44.1 Chronic obstructive pulmonary disease with (acute) exacerbation; N25.81 Secondary hyperparathyroidism of renal origin; J44.0 Chronic obstructive pulmonary disease with (acute) lower respiratory infection; J90 Pleural effusion, not elsewhere classified; Z95.0 Presence of cardiac pacemaker; K21.9 Gastro-esophageal reflux disease without esophagitis; I25.10 Atherosclerotic heart disease of native coronary artery without angina pectoris; Z95.5 Presence of coronary angioplasty implant and graft; I73.9 Peripheral vascular disease, unspecified; E78.5 Hyperlipidemia, unspecified; I48.0 Paroxysmal atrial fibrillation; Z99.2 Dependence on renal dialysis; D63.8 Anemia in other chronic diseases classified elsewhere; J96.22 Acute and chronic respiratory failure with hypercapnia; D69.6 Thrombocytopenia, unspecified; N25.0 Renal osteodystrophy; I27.20 Pulmonary hypertension, unspecified; Z99.81 Dependence on supplemental oxygen
CPT/HCPCS: 31500; 36415; 70450; 71045; 80048; 80053; 80202; 82805; 82962; 83605; 83735; 83880; 84100; 84145; 84484; 85025; 86704; 86706; 86803; 87040; 87070; 87077; 87186; 87205; 87340; 87804; 90935; 93005; 93306; 93970; 94002; 94003; 96374; 96375; 97163; 99291; J0692; J1650; J2250; J2405; J2920; J2930; J3010; J3370; J3475; J7512; J7605; Q4081

== ENCOUNTER 2018-02-15 08:40 | Inpatient (IN) | payer OTHER ==
[2018-02-15] MEDS ORDERED: NA CHLORIDE 0.9% 1,000 ML ONE (09:07)
[2018-02-15] MEDS ORDERED: VANCOMYCIN 1 GM/250 ML BAG ONE (09:07)
[2018-02-15] MEDS ORDERED: CEFEPIME 1 GM/100 ML BAG IV ONE (09:07)
[2018-02-15 09:43] LABS: Protime INR 1.17
--- NOTE | 2018-02-15 09:53 | RAD REPORT ---
EXAM DESCRIPTION: RAD - Chest Single View - 02/15/2018 9:02 am CLINICAL HISTORY: Weakness, shortness of breath COMPARISON: December 17 TECHNIQUE: AP portable chest image was obtained 0854 hours . FINDINGS: Lungs are underinflated. Right-sided pacemaker is in place. Left-sided dialysis catheter i s in place. Interstitial markings are diffusely prominent. There is a moderate right-sided pleural ef fusion and probable small left pleural effusion. Heart size is enlarged but not clearly different fro m comparison. Vasculature is mildly prominent. No pneumothorax. No acute bony abnormality seen. No ac [place] aortic findings suspected. IMPRESSION: Moderate right-sided and small left-sided pleural effusions new or progressive from Novo 30. Cardiomegaly similar to comparison. Chronic interstitial lung disease potentially masking additional failure or volume overload findings.
[2018-02-15 09:54] LABS: Absolute Lymphocytes (CBC) 0.6 K/uL (0.7-4.9); Absolute Monocytes 0.5 K/uL (0.1-1.3); Absolute Neutrophil 4.8 K/uL (1.8-8.0); Basophils % 0.5 % (0-1.3); Eosinophils % 2.3 % (0-4.4); Hematocrit 23.4 % (36.0-45.0); Lymphocytes % 9.7 % (15.3-44.8); MPV 8.8 fL (7.6-11.3); Monocytes % 7.9 % (3.3-12.3); RBC Red Blood Cell Count 2.63 M/uL (3.86-4.86)
[2018-02-15 09:57] LABS: Albumin 2.6 g/dL (3.4-5.0); Bilirubin Direct 0.1 mg/dL (0-0.2); Bilirubin Total 0.3 mg/dL (0.2-1.0); CKMB Creatine Kinase MB 3.1 ng/mL (0.3-3.6); Potassium 3.9 mmol/L (3.5-5.1); Protein, Total 5.4 g/dL (6.4-8.2); Troponin (Emerg Dept Use Only) 0.14 ng/mL (0.0-0.045)
--- NOTE | 2018-02-15 10:29 | ER ---
Nurse's Notes [facility] Name: Bárbara Thakkar Age: 87 yrs Sex: Female : 1930 Arrival Date: 02/15/2018 Time: 08:44 Bed 4 Private MD: Diagnosis: Pneumonia due to other specified infectious organisms;Pleural effusion, not elsewhere classified;Acute pulmonary edema Presentation: 02/15 08:38 Presenting complaint: EMS states: pt has been feeling weak for over a week, has getting tw2 over the flu, she was scheduled for home dialysis today but they stated her bp was 80/60's, we initially got 106/60,she says she refuses her dialysis if her bp isnt 140's/80's, [place] 116/66, she says her back is too sore for her to cough. Transition of care: patient was not received from another setting of care. Onset of symptoms was February 15, 2018. Risk Assessment: Do you want to hurt yourself or someone else? Patient reports no desire to harm self or others. Initial Sepsis Screen: Does the patient meet any 2 criteria? RR > 20 per min. HR > 90 bpm. Does the patient have a suspected source of infection? Yes: If YES to both, name of provider notified: Julio Martínez MD Care prior to arrival: None. 08:38 Method Of Arrival: EMS: [facility] tw 08:38 Acuity: CECE 3 tw2 Historical: - Allergies: 09:21 acetylcysteine; tw2 09:21 Ciprofloxacin; tw2 09:21 Iodinated Contrast Media - IV Dye; tw2 09:21 PENICILLINS; tw2 - Home Meds: 09:30 Advair Diskus 250-50 mcg/dose Inhl dsdv 1 puff 2 times per day [Active]; albuterol tw2 sulfate 2.5 mg /3 mL (0.083 %) Inhl nebu [Active]; amlodipine 10 mg tab 1 tab once daily [Active]; aspirin 81 mg Oral chew 1 tab once daily [Active]; Brovana 15 mcg/2 mL inhalation nebu 2 mL 2 times per day [Active]; carvedilol 25 mg Oral tab 1 tab 2 times per day [Active]; carvedilol 25 mg Oral tab 1 tab 2 times per day [Active]; Cozaar 100 mg Oral tab 1 tab once daily [Active]; clopidogrel 75 mg Oral tab 1 tab once daily [Active]; ferrous gluconate 240 mg (27 mg iron) Oral tab daily [Active]; hydralazine 25 mg Oral tab 1 tab 2 times per day [Active]; ipratropium bromide 0.02 % inhalation soln [Active]; Lasix 20 mg Oral tab 1 tab once daily [Active]; pantoprazole 40 mg Oral TbEC 1 tab once daily [Active]; Plavix 75 mg Oral tab 1 tab once daily [Active]; pravastatin 80 mg Oral tab 1 tab once daily [Active]; - PMHx: 09:21 ESRD; COPD; High Cholesterol; Hypertension; Pacemaker; tw2 - Immunization history:: Adult Immunizations. - Social history:: Smoking status: Patient/guardian denies using tobacco, Patient/guardian denies using alcohol, street drugs, The patient lives alone. - Family history:: not pertinent. - Ebola Screening: : Patient negative for fever greater than or equal to 101.5 degrees Fahrenheit, and additional compatible Ebola Virus Disease symptoms Patient denies travel to an Ebola-affected area in the 21 days before illness onset. Screenin:31 Abuse screen: Denies threats or abuse. Nutritional screening: No deficits noted. tw2 Tuberculosis screening: No symptoms or risk factors identified. Fall Risk None identified. Assessment: 08:45 General: Appears in no apparent distress. Behavior is calm, cooperative, appropriate tw2 for age. Pain: Complains of pain in back. Neuro: Level of Consciousness is awake, alert, obeys commands, Oriented to person, place, time, situation. Cardiovascular: Denies chest pain, shortness of breath, Heart tones S1 S2 Patient's skin is warm and dry. Rhythm is atrial fibrillation With PVC's. Cardiovascular: Edema is 3+ to left midcalf, left ankle, right midcalf and right ankle. Respiratory: Airway is patent Respiratory effort is even, unlabored, Respiratory pattern is regular, symmetrical, Breath sounds are clear bilaterally. GI: No signs and/or symptoms were reported involving the gastrointestinal system. Abdomen is flat, Bowel sounds present X 4 quads. : No signs and/or symptoms were reported regarding the genitourinary system. EENT: No signs and/or symptoms were reported regarding the EENT system. Derm: No signs and/or symptoms reported regarding the dermatologic system. Musculoskeletal: Range of motion: intact in all extremities. 09:33 Reassessment: Patient appears in no apparent distress at this time. No changes from tw2 previously documented assessment. Patient and/or family updated on plan of care and expected duration. Pain level reassessed. Patient is alert, oriented x 3, equal unlabored respirations, skin warm/dry/pink. 10:42 Reassessment: Patient appears in no apparent distress at this time. No changes from tw2 previously documented assessment. Patient and/or family updated on plan of care and expected duration. Pain level reassessed. Patient is alert, oriented x 3, equal unlabored respirations, skin warm/dry/pink. 11:33 Reassessment: Patient appears in no apparent distress at this time. No changes from tw2 previously documented assessment. Patient and/or family updated on plan of care and expected duration. Pain level reassessed. Patient is alert, oriented x 3, equal unlabored respirations, skin warm/dry/pink. 12:33 Reassessment: Patient appears in no apparent distress at this time. No changes from tw2 previously documented assessment. Patient and/or family updated on plan of care and expected duration. Pain level reassessed. Patient is alert, oriented x 3, equal unlabored respirations, skin warm/dry/pink. 13:11 Reassessment: Patient appears in no apparent distress at this time. No changes from tw2 previously documented assessment. Patient and/or family updated on plan of care and expected duration. Pain level reassessed. Patient is alert, oriented x 3, equal unlabored respirations, skin warm/dry/pink. Vital Signs: 08:53 BP 115 / 62; Pulse 122; Resp 22; Temp 97.9(O); Pulse Ox 100% on 2 lpm NC; Pain 7/10; tw2 09:24 BP 95 / 77; Pulse 104; Resp 24; Pulse Ox 100% on 2 lpm NC; tw2 10:42 BP 132 / 71; Pulse 106; Resp 24; Pulse Ox 100% on 2 lpm NC; tw2 11:32 BP 131 / 65; Pulse 102; Resp 22; Pulse Ox 100% on 2 lpm NC; tw2 12:33 BP 130 / 61; Pulse 95; Resp 17; Pulse Ox 100% on 2 lpm NC; tw2 08:53 pt uses 2L nc at home, pt reports back pain tw2 ED Course: 08:44 Patient arrived in ED. tw2 08:45 Arm band placed on. tw2 08:45 Placed in gown. Bed in low position. Call light in reach. Side rails up X2. Cardiac tw2 monitor on. Pulse ox on. NIBP on. Warm blanket given. 08:46 Julio Martínez MD is Attending Physician. ma2 08:48 Triage completed. tw2 09:03 Chest Single View XRAY In Process Unspecified. EDMS 09:18 Audrey Voss, JOSSELYN is Primary Nurse. tw2 09:24 Influenza Screen (a \T\ B) Sent. ag 09:24 Creatine Phosphokinase Sent. ag 09:24 CBC with Automated Diff Sent. ag 09:24 CKMB Creatine Kinase MB Sent. ag 09:24 Basic Metabolic Panel Sent. ag 09:24 Blood Culture Sent. ag 09:24 Basic Metabolic Panel Sent. ag 09:24 Blood Culture Adult (2) Sent. ag 09:24 CBC with Diff Sent. ag 09:24 Ckmb Sent. ag 09:25 Lactate Sent. ag 09:25 CPK Sent. ag 09:25 LFT's Sent. ag 09:25 Lipase Sent. ag 09:25 Procalcitonin Sent. ag 09:25 Protime (+inr) Sent. ag 09:25 Ptt, Activated Sent. ag 09:25 Troponin (emerg Dept Use Only) Sent. ag 09:25 Inserted saline lock: 22 gauge in right antecubital area, using aseptic technique. ag Blood collected. 10:21 Inserted saline lock: 20 gauge in left antecubital area, using aseptic technique. ag 10:27 Asim Kim DO is Hospitalizing Provider. ma2 12:32 Awaiting: per Gisele, 2nd floor is full and charge nurse has 2 pts, they cannot take tw2 pt, Reddy carreon rn notified, will wait for further room assignment. 13:06 No provider procedures requiring assistance completed. Patient admitted, IV remains in tw2 place. Administered Medications: 09:19 Drug: NS 0.9% 500 ml Route: IV; Rate: 1 bolus; Site: right antecubital; tw2 10:13 Follow up: IV Status: Completed infusion; IV Intake: 500ml tw2 10:17 Drug: Cefepime 1 grams Route: IVPB; Rate: 200 ml/hr; Infused Over: 30 mins; Site: right tw2 antecubital; 10:50 Follow up: Response: No adverse reaction; IV Status: Completed infusion tw2 10:52 Drug: vancoMYCIN 1 grams Route: IVPB; Infused Over: 2 hrs; Site: right antecubital; tw2 12:55 Follow up: Response: No adverse reaction; IV Status: Completed infusion tw2 Point of Care Testing: Blood Glucose: 09:24 Blood Glucose: 113 mg/dL; tw2 Ranges: Intake: 10:13 IV: 500ml; Total: 500ml. tw2 Outcome: 10:28 Decision to Hospitalize by Provider. ma2 13:11 Admitted to Med/surg accompanied by tech, via stretcher, room 202, with oxygen, with tw2 chart, Report called to JOSSELYN Gomez 13:11 Condition: stable 13:11 Instructed on the need for admit. 13:29 Patient left the ED. tw2 Signatures: Dispatcher [employer] EDMS Kayla Lowe Tara, RN RN tw2 Julio Martínez MD MD ma2 Corrections: (The following items were deleted from the chart) 14:15 10:42 BP 132 / 71; Pulse 106bpm; Resp 24bpm; Pulse Ox 100% RA; tw2 tw2 14:15 11:32 BP 131 / 65; Pulse 102bpm; Resp 22bpm; Pulse Ox 100% RA; tw2 tw2 14:15 12:33 BP 130 / 61; Pulse 95bpm; Resp 17bpm; Pulse Ox 100% RA; tw2 tw2
--- NOTE | 2018-02-15 10:29 | EDPHYS ---
Physician Documentation [facility] Name: Bárbara Thakkar Age: 87 yrs Sex: Female : 1930 Arrival Date: 02/15/2018 Time: 08:44 Bed 4 Private MD: ED Physician Julio Martínez HPI: 02/15 08:53 This 87 yrs old Female presents to ER via EMS with complaints of General ma2 Weakness. 08:53 The patient has shortness of breath at rest. Onset: The symptoms/episode began/occurred ma2 gradually, 2 day(s) ago. Duration: The symptoms are continuous. Associated signs and symptoms: Pertinent positives: productive cough, fever, Pertinent negatives: chest pain, hemoptysis, loss of consciousness, nausea. Severity of symptoms: At their worst the symptoms were moderate in the emergency department the symptoms are unchanged. The patient has experienced similar episodes in the past. had the flue 3 days ago, here with cough and fever and sob, missed HD yesterday . Historical: - Allergies: 09:21 acetylcysteine; tw2 09:21 Ciprofloxacin; tw2 09:21 Iodinated Contrast Media - IV Dye; tw2 09:21 PENICILLINS; tw2 - Home Meds: 09:30 Advair Diskus 250-50 mcg/dose Inhl dsdv 1 puff 2 times per day [Active]; albuterol tw2 sulfate 2.5 mg /3 mL (0.083 %) Inhl nebu [Active]; amlodipine 10 mg tab 1 tab once daily [Active]; aspirin 81 mg Oral chew 1 tab once daily [Active]; Brovana 15 mcg/2 mL inhalation nebu 2 mL 2 times per day [Active]; carvedilol 25 mg Oral tab 1 tab 2 times per day [Active]; carvedilol 25 mg Oral tab 1 tab 2 times per day [Active]; Cozaar 100 mg Oral tab 1 tab once daily [Active]; clopidogrel 75 mg Oral tab 1 tab once daily [Active]; ferrous gluconate 240 mg (27 mg iron) Oral tab daily [Active]; hydralazine 25 mg Oral tab 1 tab 2 times per day [Active]; ipratropium bromide 0.02 % inhalation soln [Active]; Lasix 20 mg Oral tab 1 tab once daily [Active]; pantoprazole 40 mg Oral TbEC 1 tab once daily [Active]; Plavix 75 mg Oral tab 1 tab once daily [Active]; pravastatin 80 mg Oral tab 1 tab once daily [Active]; - PMHx: 09:21 ESRD; COPD; High Cholesterol; Hypertension; Pacemaker; tw2 - Immunization history:: Adult Immunizations. - Social history:: Smoking status: Patient/guardian denies using tobacco, Patient/guardian denies using alcohol, street drugs, The patient lives alone. - Family history:: not pertinent. - Ebola Screening: : Patient negative for fever greater than or equal to 101.5 degrees Fahrenheit, and additional compatible Ebola Virus Disease symptoms Patient denies travel to an Ebola-affected area in the 21 days before illness onset. ROS: 08:53 Constitutional: Negative for fever, chills, and weight loss, Cardiovascular: Negative ma2 for chest pain, palpitations, and edema. 08:53 Respiratory: Positive for cough, dyspnea on exertion, Negative for orthopnea, pleurisy, acute changes. 08:53 All other systems are negative. Exam: 08:53 Constitutional: This is a well developed, well nourished patient who is awake, alert, ma2 and in no acute distress. Chest/axilla: Normal chest wall appearance and motion. Nontender with no deformity. No lesions are appreciated. Abdomen/GI: Soft, non-tender, with normal bowel sounds. No distension or tympany. No guarding or rebound. No evidence of tenderness throughout. MS/ Extremity: Pulses equal, no cyanosis. Neurovascular intact. Full, normal range of motion. Neuro: Awake and alert, GCS 15, oriented to person, place, time, and situation. Cranial nerves II-XII grossly intact. Motor strength 5/5 in all extremities. Sensory grossly intact. Cerebellar exam normal. Normal gait. 08:53 ENT: Exam is negative for 08:53 Cardiovascular: Rate: tachycardic, Edema: is not appreciated. 08:53 Respiratory: Respirations: Breath sounds: rales, that are moderate, are heard in the right middle lobe and right lower lobe, Respiratory rate: 22 Vital Signs: 08:53 BP 115 / 62; Pulse 122; Resp 22; Temp 97.9(O); Pulse Ox 100% on 2 lpm NC; Pain 7/10; tw2 09:24 BP 95 / 77; Pulse 104; Resp 24; Pulse Ox 100% on 2 lpm NC; tw2 10:42 BP 132 / 71; Pulse 106; Resp 24; Pulse Ox 100% on 2 lpm NC; tw2 11:32 BP 131 / 65; Pulse 102; Resp 22; Pulse Ox 100% on 2 lpm NC; tw2 12:33 BP 130 / 61; Pulse 95; Resp 17; Pulse Ox 100% on 2 lpm NC; tw2 08:53 pt uses 2L nc at home, pt reports back pain tw2 MDM: 08:46 Patient medically screened. ma2 08:53 Differential diagnosis: Anemia Bronchitis CHF exacerbation, pneumonia, Pneumothorax ma2 Sepsis. Antibiotic administration: 10:22 Data reviewed: vital signs, nurses notes, diagnostic data from outside facility, EKG. ma2 Counseling: I had a detailed discussion with the patient and/or guardian regarding: the historical points, exam findings, and any diagnostic results supporting the discharge/admit diagnosis, the presence of at least one elevated blood pressure reading (>120/80) during this emergency department visit, the need for further work-up and treatment in the hospital. ED course: has pneumonia and volume overload discussed with dr. orourke, Afib is old . 02/15 08:47 Order name: Basic Metabolic Panel [facility] 02/15 08:47 Order name: Blood Culture Adult (2) [facility] 02/15 08:47 Order name: CBC with Diff [facility] 02/15 08:47 Order name: Ckmb [facility] 02/15 08:47 Order name: CPK [facility] 02/15 08:47 Order name: Lactate; Complete Time: 10:09 [facility] 02/15 08:47 Order name: LFT's; Complete Time: 10:09 [facility] 02/15 08:47 Order name: Lipase; Complete Time: 10:09 [facility] 02/15 08:47 Order name: Procalcitonin; Complete Time: 10:18 [facility] 02/15 08:47 Order name: Protime (+inr); Complete Time: 10:09 [facility] 02/15 08:47 Order name: Ptt, Activated; Complete Time: 10:09 [facility] 02/15 08:47 Order name: Troponin (emerg Dept Use Only); Complete Time: 10:09 [facility] 02/15 08:47 Order name: Urine Microscopic Only [facility] 02/15 08:47 Order name: Chest Single View XRAY; Complete Time: 10:09 [facility] 02/15 08:47 Order name: Accucheck; Complete Time: 10:20 [facility] 02/15 08:47 Order name: Cardiac monitoring; Complete Time: 09:19 [facility] 02/15 08:47 Order name: EKG - Nurse/Tech; Complete Time: 09:19 [facility] 02/15 08:47 Order name: IV Saline Lock - Large Bore; Complete Time: 09:19 [facility] 02/15 08:47 Order name: Urine Culture [facility] 02/15 08:47 Order name: Basic Metabolic Panel; Complete Time: 10:09 [facility] 02/15 08:47 Order name: Blood Culture [facility] 02/15 08:48 Order name: CBC with Automated Diff; Complete Time: 10:09 [facility] 02/15 08:48 Order name: CKMB Creatine Kinase MB; Complete Time: 10:09 [facility] 02/15 08:48 Order name: Creatine Phosphokinase; Complete Time: 10:09 [facility] 02/15 08:52 Order name: Influenza Screen (a \T\ B); Complete Time: 10:09 [facility] 02/15 10:56 Order name: CBC w/o diff [facility] 02/15 08:47 Order name: Labs collected and sent; Complete Time: 09:25 [facility] 02/15 08:47 Order name: O2 Per Protocol; Complete Time: 09:19 [facility] 02/15 08:47 Order name: O2 Sat Monitoring; Complete Time: 09:19 [place] Administered Medications: 09:19 Drug: NS 0.9% 500 ml Route: IV; Rate: 1 bolus; Site: right antecubital; tw2 10:13 Follow up: IV Status: Completed infusion; IV Intake: 500ml tw2 10:17 Drug: Cefepime 1 grams Route: IVPB; Rate: 200 ml/hr; Infused Over: 30 mins; Site: right tw2 antecubital; 10:50 Follow up: Response: No adverse reaction; IV Status: Completed infusion tw2 10:52 Drug: vancoMYCIN 1 grams Route: IVPB; Infused Over: 2 hrs; Site: right antecubital; tw2 12:55 Follow up: Response: No adverse reaction; IV Status: Completed infusion tw2 Point of Care Testing: Blood Glucose: 09:24 Blood Glucose: 113 mg/dL; tw2 Ranges: Critical Glucose Levels:Adult <50 mg/dl or >400 mg/dl <40 mg/dl or >180 mg/dl Disposition: 02/15/18 10:28 Hospitalization ordered by Asim Orourke for Observation. Preliminary diagnosis are Pneumonia due to other specified infectious organisms, Pleural effusion, not elsewhere classified, Acute pulmonary edema. - Bed requested for Telemetry/MedSurg (observation). - Status is Observation. tw2 - Condition is Fair. - Problem is an acute exacerbation. - Symptoms have improved. UTI on Admission? No Signatures: Dispatcher [employer] EDMS Audrey Voss RN RN tw2 Zuly Silver RN RN df Julio Martínez MD MD ma2 Corrections: (The following items were deleted from the chart) 09:26 08:48 Urine Culture+[id number].LAB.BRZ ordered. [facility] EDCO 10:31 10:28 Hospitalization Ordered by Asim Orourke DO for Inpatient Admission. Preliminary ma2 diagnosis is Pneumonia due to other specified infectious organisms; Pleural effusion, not elsewhere classified; Acute pulmonary edema. Bed requested for Telemetry/MedSurg (Inpatient). Status is Inpatient Admission. Condition is Fair. Problem is an acute exacerbation. Symptoms have improved. UTI on Admission? No. ma2 11:41 10:31 02/15/2018 10:28 Hospitalization Ordered by Asim Orourke DO for Observation. df Preliminary diagnosis is Pneumonia due to other specified infectious organisms; Pleural effusion, not elsewhere classified; Acute pulmonary edema. Bed requested for Telemetry/MedSurg (observation). Status is Observation. Condition is Fair. Problem is an acute exacerbation. Symptoms have improved. UTI on Admission? No. ma2 12:56 11:41 02/15/2018 10:28 Hospitalization Ordered by Asim Orourke DO for Observation. df Preliminary diagnosis is Pneumonia due to other specified infectious organisms; Pleural effusion, not elsewhere classified; Acute pulmonary edema. Bed requested for Telemetry/MedSurg (observation). Status is Observation. Condition is Fair. Problem is an acute exacerbation. Symptoms have improved. UTI on Admission? No. df 13:29 12:56 02/15/2018 10:28 Hospitalization Ordered by Asim Orourke DO for Observation. tw2 Preliminary diagnosis is Pneumonia due to other specified infectious organisms; Pleural effusion, not elsewhere classified; Acute pulmonary edema. Bed requested for Telemetry/MedSurg (observation). Status is Observation. Condition is Fair. Problem is an acute exacerbation. Symptoms have improved. UTI on Admission? No. df
--- NOTE | 2018-02-15 11:17 | P.HP ---
Certification for Inpatient Patient admitted to: Observation With expected LOS: <2 Midnights Patient will require the following post-hospital care: Home Health Services Practitioner: I am a practitioner with admitting privileges, knowledge of patient current condition, hospital course, and medical plan of care. Services: Services provided to patient in accordance with Admission requirements found in Title 42 Section 412.3 of the Code of Federal Regulations Patient History Date of Service: 02/15/18 Primary Care Provider: Dr. Curiel; Nephrology-Dr. Sheldon Reason for admission: SOB, edema to the lower ext. History of Present Illness: 87-year-old female presented emergency room with increasing shortness of breath and edema to the lower extremities. Patient with history of COPD oxygen-dependent, chronic diastolic CHF with moderate pulmonary hypertension, chronic pleural effusion, end-stage renal disease on hemodialysis at home, atrial fibrillation with pacemaker, anemia coronary disease, hypertension and hyperlipidemia. Patient reports increasing shortness of breath over the last couple of days. She reports increasing edema as well. She further reports that last week she was treated for influenza. She was recent hospitalized on December 13 through December 19 for acute respiratory failure secondary to COPD and CHF. Patient reports that her last dialysis was on Saturday. She apparently missed yesterday. In the ER patient was slightly tachypneic and tachycardic. Patient had edema to the lower extremities. Vitals improved. Blood pressure 124/64, heart rate 108. White count 6.0, hemoglobin 7.5, platelet count 144. Sodium 135, potassium 3.9, BUN of 40, creatinine 4.6 with a GFR of 9. Glucose 112. Chest x-ray shows bilateral pleural effusion. Lactic acid negative. Pro calcitonin unremarkable. Influenza test negative. Patient admitted for further treatment. In the ER patient appeared stable. Vital signs improved. Patient on oxygen. Lower extremity edema and noted. Previous hospitalization reviewed. Echocardiogram 45% with moderate pulmonary hypertension noted. Allergies acetylcysteine [From Mucomyst] Allergy (Mild, Verified 12/14/17 13:50) Shortness of breath Iodinated Contrast- Oral and IV Dye Allergy (Verified 12/14/17 13:50) Itching/Hives/Rash ciprofloxacin Adverse Reaction (Mild, Verified 12/14/17 13:50) muscle spasm Penicillins Adverse Reaction (Mild, Verified 12/14/17 13:50) Itching Home medications list reviewed: Yes Home Medications: Carvedilol 25 mg PO BID 09/06/17 Clopidogrel Bisulfate [Plavix*] 75 mg PO DAILY 09/06/17 Losartan Potassium [Cozaar] 100 mg PO BEDTIME 09/06/17 Multivit,Ther Iron,Ca,FA & Min [Centrum Tablet*] 1 tab PO BEDTIME 09/06/17 Ascorbic Acid [Vitamin C] 250 mg PO DAILY 11/12/17 Aspirin 81 mg PO DAILY 11/12/17 Pravastatin Sodium [Pravachol] 80 mg PO DAILY 11/12/17 Ergocalciferol (Vitamin D2) [Vitamin D 50,000 Unit Cap] 1 cap PO EVERY 7TH DAY 12/14/17 Doxycycline Hyclate 100 mg PO BID #14 tablet 12/19/17 Ipratropium Neb [Atrovent*] 0.5 mg NEB TID PRN #90 amp 12/19/17 Umeclidinium Brm/Vilanterol Tr [Anoro Ellipta 62.5-25 Mcg INH] 1 each IH BID 30 Days #1 blst.w.dev 12/19/17 predniSONE [Deltasone*] 10 mg PO SEECOM #15 tab 12/19/17 - Past Medical/Surgical History Diabetic: No -: COPD, Oxygen dependent -: HTN -: Atrial fibrillation, Pacemaker -: GERD -: Chronic anemia -: CAD -: PVD -: Carotid arterial disease -: Hyperlipidemia -: CHF, diastolic dysfunction, moderate pulmonary hypertension -: Permanent Pacemaker to upper rt chest-Sep [address] Narvaez -: Cornary stents -: kidney stents and stents to ea leg -: Bilateral lens implants -: Bilateral carpal tunnel repair -: Hysterectomy -: Appendectomy -: Tonsillectomy Psychosocial/ Personal History: She is . Patient gets home dialysis - Family History Mother -: Heart disease, Diabetes Notes: of [place] Sister -: Diabetes - Social History Smoking Status: Former smoker Alcohol use: No CD- Drugs: No Caffeine use: No Place of Residence: Home Review of Systems General: Weakness, As per HPI Eyes: Unremarkable ENT: As per HPI Respiratory: Cough (Dry cough), Shortness of Breath, As per HPI Cardiovascular: Unremarkable Gastrointestinal: Unremarkable Genitourinary: Unremarkable Musculoskeletal: Pedal edema, As per HPI Integumentary: As per HPI Neurological: As per HPI Lymphatics: Unremarkable Physical Examination - Physical Exam General: Alert, In no apparent distress, Oriented x3, Cooperative HEENT: Atraumatic, Normocephalic, Mucous membr. moist/pink Neck: Supple Respiratory: Diminished (To the bases), Expiratory wheezes (Bilateral), Inspiratory wheezes (Bilateral) Cardiovascular: Abnormal pulses (Sinus tachycardia mild) Gastrointestinal: Normal bowel sounds, Soft and benign, Non-distended, No tenderness, No masses, No rebound, No guarding Musculoskeletal: No erythema, No tenderness, No warmth Integumentary: No erythema, No warmth, No cyanosis, Tenderness/swelling (2+ pitting edema to the lower extremities bilateral) Neurological: Normal speech, Normal strength at 5/5 x4 extr, Normal tone, Normal affect - Studies Laboratory Data (last 24 hrs) 02/15/18 09:05: PT 13.8 H, INR 1.17, APTT 26.7 02/15/18 09:05: WBC 6.0, Hgb 7.5 L*, Hct 23.4 L, Plt Count 144 L 02/15/18 09:05: Sodium 135 L, Potassium 3.9, BUN 40 H, Creatinine 4.65 H, Glucose 112 H, Total Bilirubin 0.3, AST 11 L, ALT 11 L, Alkaline Phosphatase 83 , Lipase 177 Microbiology Data (last 24 hrs): 02/15/18 09:05 Nasopharnyx Influenza Type A Antigen Screen - Final 02/15/18 09:05 Nasopharnyx Influenza Type B Antigen Screen - Final Assessment and Plan - Plan Impression: Shortness of breath and edema to the lower extremities secondary to acute on chronic diastolic CHF with noted moderate pulmonary hypertension complicated with COPD oxygen-dependent, at risk for aspiration with noted bilateral pleural effusions End-stage renal disease on hemodialysis Hypertension Hyperlipidemia CAD Atrial fibrillation with history of pacemaker not on chronic anti coagulation therapy Anemia of chronic disease Plan: Shortness of breath and edema to the lower extremities secondary to acute on chronic diastolic CHF with noted moderate pulmonary hypertension complicated with COPD oxygen-dependent, at risk for aspiration with noted bilateral pleural effusions: Patient will be admitted. Patient will require hemodialysis due to shortness of breath, edema to the lower extremities and pleural effusions. Patient missed dialysis on Saturday. Will consult Nephrology to further address. Patient with anemia. Will recheck CBC. If still low patient may require transfusion with dialysis. Will continue with COPD medication. Will consult pulmonology to further evaluate her COPD and moderate pulmonary hypertension. Patient at risk for aspiration. Pro calcitonin and lactic acid negative. Doubt pneumonia but will cover with doxycycline. Will recheck chest x-ray tomorrow. Will monitor lab. Await further recommendations from nephrology and pulmonology. End-stage renal disease on hemodialysis: Nephrology consulted. Patient will require dialysis. Patient missed dialysis on Saturday. Patient gets dialysis at home. Patient may require transfusion with dialysis. CBC recheck pending. Hypertension: Will continue with her home medication of carvedilol and losartan. Will monitor and adjust appropriately. Hyperlipidemia: Will continue with her home medication. CAD: Will continue with aspirin and Plavix. Atrial fibrillation with history of pacemaker not on chronic anti coagulation therapy: Will continue with aspirin and Plavix. Continue with carvedilol. Will monitor closely. Anemia of chronic disease: Will recheck hemoglobin. If hemoglobin remains low patient may require transfusion with hemodialysis. Will monitor closely. Discharge Plan: Home Plan to discharge in: 48 Hours - Advance Directives Does patient have a Living Will: No Does patient have a Durable POA for Healthcare: No - Code Status/Comfort Care Code Status Assessed: Yes (Patient full code.) Time Spent Managing Pts Care (In Minutes): 55
[2018-02-15] MEDS ORDERED: ONDANSETRON 4 MG/2 ML VIAL IV PRN (13:58)
[2018-02-15] MEDS ORDERED: BENZONATATE 100 MG CAP PO PRN (13:58)
[2018-02-15] MEDS ORDERED: IPRATROPIUM BROM 0.5MG/2.5ML NEB PRN (13:58)
[2018-02-15] MEDS ORDERED: ALBUTEROL 2.5 MG/3 ML NEB SOL NEB PRN (13:58)
[2018-02-15] MEDS ORDERED: ACETAMINOPHEN 500 MG TAB PO PRN (13:58)
[2018-02-15] MEDS ORDERED: NA CHLORIDE 0.9% 1,000 ML IV PRN (14:40)
[2018-02-15] MEDS ORDERED: ALBUMIN HUMAN 25% 50 ML IV SCH (15:00)
[2018-02-15 15:29] LABS: Absolute Lymphocytes (CBC) 0.8 K/uL (0.7-4.9); Absolute Monocytes 0.5 K/uL (0.1-1.3); Absolute Neutrophil 3.8 K/uL (1.8-8.0); Basophils % 0.9 % (0-1.3); Eosinophils % 2.4 % (0-4.4); Hematocrit 24.8 % (36.0-45.0); Lymphocytes % 14.6 % (15.3-44.8); MPV 8.7 fL (7.6-11.3); Monocytes % 9.5 % (3.3-12.3); RBC Red Blood Cell Count 2.79 M/uL (3.86-4.86)
[2018-02-15] MEDS: DOXYCYCLINE 100 MG in NA CHLORIDE 0.9% 100 ML IVPB SCH ×2 (17:00→22:07)
[2018-02-15] MEDS: CARVEDILOL 25 MG TAB PO SCH ×2 (17:05→22:37)
[2018-02-15] MEDS: EPOETIN ALFA 10,000 UNIT/ML VIAL IV SCH (18:23)
[2018-02-15] MEDS ORDERED: ATORVASTATIN 10 MG TAB PO SCH (21:00)
[2018-02-15] MEDS: ARFORMOTEROL TARTRATE 15 MCG/2 ML VIAL.NEB NEB SCH (22:00)
[2018-02-16] MEDS ORDERED: NA CHLORIDE 0.9% 500 ML IV ONE (00:01)
[2018-02-16] MEDS ORDERED: NOREPINEPHRINE 4 MG in D5W 250 ML IV PRN (01:15)
[2018-02-16] MEDS ORDERED: NOREPINEPHRINE 4mg/D5W 250mL 4 MG/250 ML BAG IV ONE (01:32)
--- NOTE | 2018-02-16 01:36 | P.PN ---
Date of Service: 02/16/18 I was called to evaluate the patient after she came back from HD, since the patient was dyspneic and hypotensive. Her Temp was 97.2 F, BP 73/40's, but O2 sat 97% on 2 L. She denied chest pain, EKG shows no changes with previous one, CXR similar to previous one. It was decided to transfer to patient to ICU for close monitoring and start vasopressors, however as soon she got ICU, had an episode of respiratory arrest. Then she was successfully intubated and connected to vent machine. Will order blood cultures again, urine culture, broad spectrum antibiotics, vasopressures.
[2018-02-16] MEDS ORDERED: MIDAZOLAM HCL 2 MG/2 ML INJ ONE (01:38)
[2018-02-16 03:17] LABS: Urine Appearance CLOUDY; Urine Bilirubin NEGATIVE (NEG); Urine Blood TRACE (NEG); Urine Color YELLOW; Urine Glucose NEGATIVE (NEG); Urine Protein 2+ (NEG); Urine Urobilinogen 0.2 mg/dL (0.2-1.0); Urine pH 5.5 (5.0-7.0)
[2018-02-16 03:27] LABS: Urine Microscopic Reflex ORDER UMIC
[2018-02-16 04:35] LABS: Urine Amorphous Sediment 3+ /HPF (NONE SEEN); Urine Bacteria <20 /HPF (<20); Urine Culture Reflex Order NOT NEEDED; Urine RBC <5 /HPF (NONE SEEN)
[2018-02-16] MEDS: CARVEDILOL 25 MG TAB PO SCH (06:00)
--- NOTE | 2018-02-16 06:02 | P.OP ---
Date of Service: 02/16/18 Findings and Operative Technique Central Venous Catheter (CVC, Central Line) Placement Date: 02/16/2018 Time: 3:00 AM Indication: Hemodynamic monitoring/Intravenous access A time-out was completed verifying correct patient, procedure, site, positioning , and special equipment if applicable. The patient was placed in a dependent position appropriate for central line placement based on the vein to be cannulated. The patients right groin was prepped and draped in sterile fashion. 1% Lidocaine was used to anesthetize the surrounding skin area. A triple lumen 9-Burmese Cordis catheter was introduced into the the common femoral vein using the Seldinger technique. The catheter was threaded smoothly over the guide wire and appropriate blood return was obtained. Each lumen of the catheter was evacuated of air and flushed with sterile saline. The catheter was then sutured in place to the skin and a sterile dressing applied. Perfusion to the extremity distal to the point of catheter insertion was checked and found to be adequate. Estimated Blood Loss: 5 cc The patient tolerated the procedure well and there were no complications.
--- NOTE | 2018-02-16 06:05 | P.OP ---
Date of Service: 02/16/18 Findings and Operative Technique Endotracheal Intubation Date: 02/16/2018 Time: 2:30 AM Indication: Respiratory Distress A time-out was completed verifying correct patient, procedure, site, positioning , and special equipment if applicable. The patient was placed in a flat position. The patient was easily ventilated using an ambu bag. The MAC 4 BLADE was used and inserted into the oropharynx at which time there was a Grade 1 view of the vocal cords. A 7.5-estonian endotracheal tube was inserted and visualized going through the vocal cords. The stylette was removed. Colorimetric change was visualized on the CO2 meter. Breath sounds were heard in both lung roldan equally. The endotracheal tube was placed at 23 cm, measured at the teeth. A chest x-ray was ordered to assess for pneumothorax and verify endotrachealtube placement. Estimated Blood Loss: none
[2018-02-16] MEDS: DOXYCYCLINE 100 MG in NA CHLORIDE 0.9% 100 ML IVPB SCH (06:09)
[2018-02-16] MEDS: PANTOPRAZOLE 40MG TABLET PO SCH (06:13)
[2018-02-16 06:17] LABS: Absolute Lymphocytes (CBC) 0.4 K/uL (0.7-4.9); Absolute Monocytes 0.4 K/uL (0.1-1.3); Absolute Neutrophil 5.9 K/uL (1.8-8.0); Basophils % 0.3 % (0-1.3); Eosinophils % 0.2 % (0-4.4); Lymphocytes % 5.3 % (15.3-44.8); MPV 8.9 fL (7.6-11.3); Monocytes % 6.7 % (3.3-12.3); RBC Red Blood Cell Count 2.47 M/uL (3.86-4.86)
[2018-02-16] MEDS ORDERED: FENTANYL CITR 100 MCG/2 ML IV PRN (06:35)
[2018-02-16 07:00] LABS: Magnesium 1.8 mg/dL (1.8-2.4); Potassium 3.9 mmol/L (3.5-5.1)
[2018-02-16] MEDS: MIDAZOLAM HCL 2 MG/2 ML INJ IV PRN ×2 (07:00→12:16)
[2018-02-16 07:08] LABS: Blood Morphology Comment NOT SEEN (NOT SEEN); Platelet Estimate ADEQ; Urine White Blood Cell Casts OK
[2018-02-16] MEDS ORDERED: FUROSEMIDE 20 MG/ 2ML VIAL IV ONE (07:15)
[2018-02-16] MEDS ORDERED: NA CHLORIDE 0.9% 250 ML IV SCH (08:00)
[2018-02-16] MEDS: ARFORMOTEROL TARTRATE 15 MCG/2 ML VIAL.NEB NEB SCH ×3 (08:30→20:05)
[2018-02-16] MEDS ORDERED: LOSARTAN POTASSIUM 50 MG TABLET PO SCH (09:00)
[2018-02-16] MEDS ORDERED: AZTREONAM IV SCH (09:00)
[2018-02-16] MEDS ORDERED: ASCORBIC ACID 250 MG PO SCH (09:00)
[2018-02-16] MEDS ORDERED: HOME MED 1 EA UNK (Pravastatin Sodium [Pravachol] 80 MG) PO SCH (09:00)
[2018-02-16] MEDS ORDERED: DRISDOL (VITAMIN D=ERGOCALCIFEROL) 50000 UNIT CAP PO SCH ×2 (09:00)
[2018-02-16] MEDS ORDERED: NA CHLORIDE 0.9% IV SCH (09:00)
[2018-02-16] MEDS ORDERED: AZTREONAM 1 GM/VIAL IV SCH (09:00)
[2018-02-16] MEDS: ASPIRIN EC 81 MG TAB PO SCH (09:00)
--- NOTE | 2018-02-16 09:01 | P.PN ---
Subjective Date of Service: 02/16/18 Primary Care Provider: Dr. Curiel; Nephrology-Dr. Sheldon Chief Complaint: SOB, edema to the lower ext. Subjective: Other (Patient had acute respiratory distress along with respiratory arrest last night after dialysis. Patient was hypertensive. Patient was intubated and stabilize. Patient was placed on Levophed. Patient now off Levophed. Blood pressure stable. Patient appears anemic. Patient will get transfusion.) Physical Examination - Vital Signs Temperature: 97 F Blood Pressure: 125/59 Pulse: 77 Respirations: 14 Pulse Ox (%): 100 - Physical Exam General: Other (Patient intubated and slightly sedated) HEENT: Atraumatic Neck: Supple Respiratory: Clear to auscultation bilaterally, Normal air movement Cardiovascular: Irregular heart rate/rhythm (Atrial fibrillation, rate controlled) Gastrointestinal: Normal bowel sounds, Soft and benign, No masses, No rebound, No guarding Musculoskeletal: No tenderness, No warmth Integumentary: No warmth, No cyanosis, Tenderness/swelling (Less edema to the lower extremities) Neurological: Normal tone - Studies Laboratory Data (last 24 hrs) 02/15/18 10:56: WBC Cancelled, Hgb Cancelled, Hct Cancelled, Plt Count Cancelled 02/15/18 09:05: PT 13.8 H, INR 1.17, APTT 26.7 02/15/18 09:05: WBC 6.0, Hgb 7.5 L*, Hct 23.4 L, Plt Count 144 L 02/15/18 09:05: Sodium 135 L, Potassium 3.9, BUN 40 H, Creatinine 4.65 H, Glucose 112 H, Total Bilirubin 0.3, AST 11 L, ALT 11 L, Alkaline Phosphatase 83 , Lipase 177 Microbiology Data (last 24 hrs): 02/15/18 09:05 Nasopharnyx Influenza Type A Antigen Screen - Final 02/15/18 09:05 Nasopharnyx Influenza Type B Antigen Screen - Final Medications List Reviewed: Yes Assessment & Plan Discharge Plan: Other (Skilled placement) Plan to discharge in: Greater than 2 days Physician Review Additional Text: Impression: Acute on chronic respiratory failure with respiratory arrest likely multifactorial secondary with hypotension, acute on chronic anemia, acute on chronic diastolic CHF with moderate pulmonary hypertension complicated with COPD oxygen-dependent at a risk for aspiration with noted bilateral pleural effusions End-stage renal disease on hemodialysis Hypertension with noted hypotension Hyperlipidemia CAD Atrial fibrillation with history of pacemaker not on chronic anti coagulation therapy Acute on chronic Anemia of chronic disease Plan: Acute on chronic respiratory failure with respiratory arrest likely multifactorial secondary with hypotension, acute on chronic anemia, acute on chronic diastolic CHF with moderate pulmonary hypertension complicated with COPD oxygen-dependent at a risk for aspiration with noted bilateral pleural effusions: Patient was intubated last night due to acute respiratory failure with respiratory arrest. Patient stabilize at this time. Patient was on a Levophed. Now blood pressure stable off Levophed. Cardiac enzymes slightly elevated likely related to cardiac arrest. Will monitor closely. Cardiology, pulmonology and nephrology consulted. Hemoglobin 7.1. Will transfuse 1 unit. Will try to maintain hemoglobin above 8.0 considering her multiple issues. Patient received dialysis last night. She had missed dialysis on Saturday. Patient currently being treated for COPD, pulmonary hypertension, CHF. Patient at risk for aspiration. Patient now on IV antibiotic therapy. Await further recommendations from pulmonology, cardiology and nephrology. Blood cultures obtained. Will check x-ray. Will monitor lab closely. End-stage renal disease on hemodialysis: Nephrology consulted. Patient receive dialysis last night. Patient had missed dialysis on Saturday. Hypertension with noted hypotension: Patient with noted hypotension last night. Will discontinue carvedilol and losartan. Will verify home medication. Patient off Levophed at this time. CAD: Will continue with aspirin and Plavix. Atrial fibrillation with history of pacemaker not on chronic anti coagulation therapy: Will continue with aspirin and Plavix. Carvedilol discontinued due to hypotension. Await further recommendations from cardiology. Patient with atrial fibrillation, rate controlled. Anemia of chronic disease: Hemoglobin 7.1. Will transfuse 1 unit. Will try to maintain hemoglobin above 8.0. Time Spent Managing Pts Care (In Minutes): 55
[2018-02-16] MEDS: CLOPIDOGREL 75 MG TABLET PO SCH (09:10)
[2018-02-16] MEDS: ASCORBIC ACID 500 MG TABLET PO SCH (09:10)
--- NOTE | 2018-02-16 09:11 | RAD REPORT ---
EXAM DESCRIPTION: RAD - Chest Single View - 02/16/2018 1:06 am CLINICAL HISTORY: Dyspnea, Tachypnea Chest pain. COMPARISON: Chest Single View dated 02/15/2018; Chest Single View dated 12/17/2017; Chest Single Vie w dated 12/13/2017; Chest Single View dated 11/19/2017 FINDINGS: Portable technique limits examination quality. Small left and moderate right pleural effusion. Heart is moderately enlarged in size with a dual lead pacer device present. Mild interstitial pulmonary edema is present.Left-sided venous catheter has it s tip in the SVC.
--- NOTE | 2018-02-16 09:23 | RAD REPORT ---
EXAM DESCRIPTION: RAD - Chest Single View - 02/16/2018 9:17 am CLINICAL HISTORY: CODE 99 Chest pain. COMPARISON: Chest Single View dated 02/16/2018; Chest Single View dated 02/15/2018; Chest Single Vie w dated 12/17/2017; Chest Single View dated 12/13/2017 FINDINGS: Portable technique limits examination quality. Tip of the ET tube is above the martinez. Small bilateral pleural effusions are suspected. The lungs ar e mildly emphysematous but clear. The heart is mildly enlarged in size.Left-sided venous catheter has its tip in the SVC. IMPRESSION: ET tube tip is above the martinez.
--- NOTE | 2018-02-16 10:05 | P.CNS ---
Date of Consult: 02/16/18 Primary Care Provider: Dr. Curiel; Nephrology-Dr. Sheldon Chief Complaint: Respiratory failure History of Present Illness: Patient is 87 years of age well known to me with a history of COPD she had missed a few dialysis apparently after dialysis she needed to be intubated she is currently alert responsive cooperative awaiting another dialysis before she can be weaned off and extubated history of COPD Allergies acetylcysteine [From Mucomyst] Allergy (Mild, Verified 12/14/17 13:50) Shortness of breath Iodinated Contrast- Oral and IV Dye Allergy (Verified 12/14/17 13:50) Itching/Hives/Rash ciprofloxacin Adverse Reaction (Mild, Verified 12/14/17 13:50) muscle spasm Penicillins Adverse Reaction (Mild, Verified 12/14/17 13:50) Itching Home Medications: Carvedilol 12.5 mg PO BID 09/06/17 Clopidogrel Bisulfate [Plavix*] 75 mg PO DAILY 09/06/17 Multivit,Ther Iron,Ca,FA & Min [Centrum Tablet*] 1 tab PO BEDTIME 09/06/17 Ascorbic Acid [Vitamin C] 250 mg PO DAILY 11/12/17 Aspirin 81 mg PO DAILY 11/12/17 Pravastatin Sodium [Pravachol] 80 mg PO DAILY 11/12/17 Ergocalciferol (Vitamin D2) [Vitamin D 50,000 Unit Cap] 1 cap PO EVERY 7TH DAY 12/14/17 - Past Medical/Surgical History Diabetic: No -: COPD, Oxygen dependent -: HTN -: Atrial fibrillation, Pacemaker -: GERD -: Chronic anemia -: CAD -: PVD -: Carotid arterial disease -: Hyperlipidemia -: CHF, diastolic dysfunction, moderate pulmonary hypertension -: Permanent Pacemaker to upper rt chest-Sep [address] Narvaez -: Cornary stents -: kidney stents and stents to ea leg -: Bilateral lens implants -: Bilateral carpal tunnel repair -: Hysterectomy -: Appendectomy -: Tonsillectomy Psychosocial/ Personal History: She is . Patient gets home dialysis - Family History Mother Medical History: Heart disease, Diabetes Notes: of [place] Sister Medical History: Diabetes - Social History Smoking Status: Unknown if ever smoked Alcohol use: No CD- Drugs: No Caffeine use: No Place of Residence: Home Review of Systems is unable to be obtained Physical Examination Temp Pulse Resp BP Pulse Ox 97 F 77 14 125/59 L 100 02/16/18 09:01 02/16/18 09:01 02/16/18 09:01 02/16/18 09:01 02/16/18 09:01 General: Alert, Cooperative Respiratory: Clear to auscultation bilaterally, Diminished Cardiovascular: No edema, Regular rate/rhythm Gastrointestinal: Normal bowel sounds, Soft and benign Musculoskeletal: No clubbing Integumentary: No rashes, No breakdown Laboratory Data (last 24 hrs) 02/16/18 06:06: Sodium 138, Potassium 3.9, BUN 25 H, Creatinine 2.87 H D, Glucose 186 H, Magnesium 1.8 02/16/18 06:06: WBC 6.8 D, Hgb 7.1 L*, Hct 22.0 L, Plt Count 131 L 02/16/18 02:20: Troponin I 0.37 H 02/15/18 15:11: WBC 5.2, Hgb 7.8 L*, Hct 24.8 L, Plt Count 133 L 02/15/18 10:56: WBC Cancelled, Hgb Cancelled, Hct Cancelled, Plt Count Cancelled - Problems (1) Respiratory failure Current Visit: Yes Status: Acute Plan: Patient is 87 years of age with a history of COPD missed dialysis well up respiratory issues had to be intubated currently she is alert responsive cooperative wants to be extubated off vasopressors saturation satisfactory chest x-ray shows bilateral pleural effusion patient is mildly anemic labs reviewed vital signs in oxygenation is stable there is no evidence of sepsis patient is not coughing up any phlegm pro calcitonin level is negative white count is normal can Dc doxycycline and aztreonam after dialysis. Plan to wean and extubate Qualifiers: Chronicity: acute on chronic
--- NOTE | 2018-02-16 10:13 | EKG ---
Test Date: 2018-02-16 Test Time: 00:47:04 Ophthalmologist: INTERVENTION TEACHER MEASUREMENT RESULTS: Intervals: Rate: 60 FL: 80 QRSD: 118 QT: 454 QTc: 454 [place]: P: FL: 80 QRS: -33 T: 244 INTERPRETIVE STATEMENTS: Sinus rhythm with short FL Left axis deviation Nonspecific intraventricular conduction delay ST & T wave abnormality, consider inferior ischemia ST & T wave abnormality, consider anterolateral ischemia Abnormal ECG Compared to ECG 02/15/2018 08:57:57 Short FL interval now present Left-axis deviation now present Atrial fibrillation no longer present Electronically Signed On 02-16-18 10:12:55 [employer] by Maxi Burnett
--- NOTE | 2018-02-16 10:17 | EKG ---
Test Date: 2018-02-15 Test Time: 08:57:57 Emergency Management Director: [facility] MEASUREMENT RESULTS: Intervals: Rate: 121 SD: QRSD: 130 QT: 360 QTc: 511 [place]: P: SD: QRS: -23 T: 165 INTERPRETIVE STATEMENTS: Atrial fibrillation with rapid ventricular response Nonspecific intraventricular block T wave abnormality, consider lateral ischemia Abnormal ECG Compared to ECG 12/13/2017 14:15:45 Sinus rhythm no longer present Sinus arrhythmia no longer present T-wave abnormality still present Possible ischemia still present Electronically Signed On 02-16-18 10:17:27 ODD JOB WORKER by Maxi Burnett
[2018-02-16] MEDS: EPOETIN ALFA 10,000 UNIT/ML VIAL IV SCH (13:43)
[2018-02-16 17:29] LABS: Hematocrit 28.2 % (36.0-45.0)
--- NOTE | 2018-02-16 18:25 | CON ---
History Of Present Illness: Mrs. Thakkar is 87. She had progressively worsening shortness of breath, came to the hospital, and overnight deteriorated. In fact, it was following dialysis. Her blood pr essure fell. She required Levophed. She required intubation. She is a patient, who has mildly decr eased ejection fraction, diastolic dysfunction, end-stage renal disease, a pacemaker, hist ory of atrial fibrillation. I am asked to see her because she was in atrial fibrillation last night and she was also hypotensive, and now has a troponin level that is elevated at 0.37. Physical Examination: General: The patient was intubated, alert, not in any distress. Denied having chest pain. Vital signs: Blood pressure 123/57, heart rate in the 80s. She goes in and out of atrial fib with t he majority of the time in either sinus or atrial paced rhythm. There is no ventricular pacing. It is inhibited by her [place] QRS complexes. There is a nonspecific intraventricular conduction delay _ nonspecific ST and T-wave abnormality. Lungs: Reveal large airway sounds throughout both the lungs. Heart: Regular during the exam. There is a systolic murmur. Abdomen: Soft. Extremities: Diminished, but palpable distal pulses. Trace edema. Impression: The patient's prolonged hypotension treatment with norepinephrine drip probably __ much to do with a troponin as anything else. No doubt Mrs. Thakkar has some coronary heart disease , I will be surprised if she did not. Certainly, not an indication right now to do a heart catheteri zation or look into this further. Her present therapy is very likely to be beneficial to her. I suspect later today she can be extubat ed. FEROZ/ADITI Voice ID: [id number] Report ID: [id number]
[2018-02-16] MEDS: ATORVASTATIN 10 MG TAB PO SCH (20:51)
[2018-02-16] MEDS: MULTIVITAMIN TAB PO SCH (20:52)
--- NOTE | 2018-02-17 02:26 | CON ---
Date of Consultation: 02/16/2018 Chief Complaint: End-stage renal disease, on dialysis. History Of Present Illness: The patient presented to the hospital because of generalized weakness, shortness of breath. She missed dialysis and dialysis was scheduled in the hospital. The patient is an 87-year-old female who presented to the emergency room because of increasing shortness of breath, fatigue, lower extremity edema. She has history of COPD, oxygen-dependent, chronic diastolic congestive heart failure with moderate pulmonary hypertension , chronic pleural effusion, end-stage renal disease, on hemodialysis, atrial fibrillation with history of pacemaker placement, anemia of chronic kidney disease, coronary artery disease, hypertension, and hyperlipidemia. The patient was complaining of progressively worse shortness of breath over the last 2 days prior to this admission. She developed worsening of the legs edema. Recently, she received treatment for influenza. She was hospitalized in November and December for acute respiratory failure secondary to COPD and CHF. Her last dialysis was done on Saturday prior to this admission, and when she came to the hospital, she received dialysis yesterday. After dialysis, blood pressure was elevated. She received Coreg and blood pressure dropped. The patient became very lethargic, unresponsive and was transferred to ICU and intubated. Today, she is hemodynamically stable, very alert, was found to have severe anemia and needs to have blood transfusion with dialysis. Dialysis was scheduled today for metabolic clearance and ultrafiltration. The patient underwent workup for sepsis. Procalcitonin level was unremarkable. Influenza test was negative. Chest x-ray showed bilateral pleural effusion. Lactic acid was negative and cultures are still pending. Review of Systems: Unobtainable. The patient is on ventilator, although she is awake, alert, and follows commands. Past Medical History: COPD, oxygen dependent, hypertension, atrial fibrillation , pacemaker, GERD, chronic anemia, CAD, PVD, carotid artery disease, hyperlipidemia, congestive heart failure, diastolic dysfunction, moderate pulmonary hypertension. Past Surgical History: Permanent pacemaker to the upper chest, coronary stents , kidney stents, and stents to both legs, bilateral lens implant, hysterectomy, and appendectomy. Family History: Mother , had heart disease and diabetes. Sister, diabetes. Social History: Former smoker. Denies alcohol or illicit drugs. Physical Examination: General: The patient is awake, is intubated, ventilated. HEENT: Eyes: Anicteric sclerae. EOMI. Ears, Nose, Mouth and Throat: Oral mucosa moist. No pallor. Neck: Supple. No JVD. No bruits. Lungs: Coarse breath sounds bilaterally. Heart: S1, S2. No pericardial friction rub. Abdomen: Soft, benign, nontender. Extremities: Slight edema. No clubbing. No cyanosis. Neurological: Moving extremities. Cranial nerves intact. Psychiatric: Unobtainable. The patient is intubated. SKIN : warm and dry, no cellulitis Laboratory Work: PT 13.8, INR 1.17, PTT 26.7. WBC 6, hemoglobin 7.5, platelet count 144,000. Sodium 135, potassium 3.9, BUN 40, creatinine 4.65, glucose 112 , total bilirubin 0.3. Impression And Plan: 1. End-stage renal disease, shortness of breath. The patient is intubated for respiratory failure. She has diastolic congestive heart failure, acute on chronic with moderate pulmonary hypertension with chronic obstructive pulmonary disease, oxygen dependent condition. The patient was found to have bilateral pleural effusion. There is some fluid overload. Continue daily dialysis with ultrafiltration. Dialysis tomorrow. 2. Hyperlipidemia. Continue medication when patient is extubated. 3. Coronary artery disease. Check for an evidence of acute coronary syndrome. Continue aspirin and Plavix. 4. Atrial fibrillation, status post pacemaker, on chronic anticoagulation. The patient is on anticoagulation. Monitor INR. The patient will require dialysis to control volemia and provide management for congestive heart failure and respiratory failure. The patient may require antibiotic for possible pneumonia pending sputum culture. The patient will be ruled out for bacteremia and sepsis. The patient will need broad-spectrum antibiotics pending blood cultures. 5. Hypertension and congestive heart failure with diastolic dysfunction. Blood pressure is fluctuating. Continue carvedilol and Losartan. Monitor blood pressure and adjust medication accordingly. 6. Anemia of chronic kidney disease. Continue ROMELIA. Monitor hemoglobin level. The patient will have blood transfusion. STEPHON/ADITI Voice ID: [id number] Report ID: [id number] KARLEE
[2018-02-17 04:54] LABS: Absolute Lymphocytes (CBC) 0.7 K/uL (0.7-4.9); Absolute Monocytes 0.7 K/uL (0.1-1.3); Absolute Neutrophil 4.2 K/uL (1.8-8.0); Eosinophils % 1.8 % (0-4.4); Hematocrit 24.4 % (36.0-45.0); Lymphocytes % 11.8 % (15.3-44.8); MPV 8.9 fL (7.6-11.3); Monocytes % 11.7 % (3.3-12.3); RBC Red Blood Cell Count 2.75 M/uL (3.86-4.86)
[2018-02-17 05:11] LABS: Magnesium 1.9 mg/dL (1.8-2.4); Potassium 3.5 mmol/L (3.5-5.1)
[2018-02-17] MEDS: PANTOPRAZOLE 40MG TABLET PO SCH (06:38)
[2018-02-17] MEDS: ARFORMOTEROL TARTRATE 15 MCG/2 ML VIAL.NEB NEB SCH ×2 (08:03→19:32)
[2018-02-17] MEDS: CLOPIDOGREL 75 MG TABLET PO SCH (08:41)
[2018-02-17] MEDS: ASCORBIC ACID 500 MG TABLET PO SCH (08:41)
[2018-02-17] MEDS: ASPIRIN EC 81 MG TAB PO SCH (08:41)
--- NOTE | 2018-02-17 10:17 | P.PN ---
Subjective Date of Service: 02/17/18 Primary Care Provider: Dr. Curiel; Nephrology-Dr. Sheldon Chief Complaint: Respiratory failure Subjective: Improving Physical Examination - Vital Signs Temperature: 97.6 F Blood Pressure: 103/48 Pulse: 79 Respirations: 30 Pulse Ox (%): 100 - Physical Exam General: Alert, In no apparent distress, Oriented x3, Cooperative HEENT: Atraumatic Neck: Supple Respiratory: Clear to auscultation bilaterally, Normal air movement Cardiovascular: Normal pulses, Regular rate/rhythm Gastrointestinal: Normal bowel sounds, Soft and benign, Non-distended, No tenderness, No masses, No rebound, No guarding Musculoskeletal: No erythema, No tenderness, No warmth Integumentary: No erythema, No warmth, No cyanosis, Tenderness/swelling (Edema to the lower extremities improved) Neurological: Normal speech, Normal strength at 5/5 x4 extr, Normal tone, Normal affect - Studies Laboratory Data (last 24 hrs) 02/16/18 07:12: Hgb Cancelled Microbiology Data (last 24 hrs): 02/16/18 02:48 Blood - Blood Anaerobic Blood Culture - Final Medications List Reviewed: Yes Assessment & Plan Discharge Plan: Home Plan to discharge in: 48 Hours Physician Review Additional Text: Impression: Acute on chronic respiratory failure with respiratory arrest likely multifactorial secondary with hypotension, acute on chronic anemia, acute on chronic diastolic CHF with moderate pulmonary hypertension complicated with COPD oxygen-dependent at a risk for aspiration with noted bilateral pleural effusions End-stage renal disease on hemodialysis Hypertension with noted hypotension Hyperlipidemia CAD Atrial fibrillation with history of pacemaker not on chronic anti coagulation therapy Acute on chronic Anemia of chronic disease Plan: Acute on chronic respiratory failure with respiratory arrest likely multifactorial secondary with hypotension, acute on chronic anemia, acute on chronic diastolic CHF with moderate pulmonary hypertension complicated with COPD oxygen-dependent at a risk for aspiration with noted bilateral pleural effusions: Patient was extubated yesterday. Patient stable at this time. Patient off Levophed. Patient off blood pressure medications. Will have physical therapy assess ambulation. Patient significantly improved. Will continue with current treatment of dialysis. Patient has received 1 unit of blood. Hemoglobin stable. No need for cardiac intervention. Antibiotics discontinued by pulmonology as there is likely no underlying infection. Possible transfer to the floor later today or tomorrow. Anticipate discharge in the next 2-3 days. Patient desires to go home at discharge. End-stage renal disease on hemodialysis: Nephrology consulted. Continue with dialysis. Hypertension with noted hypotension: Patient off Levophed. Patient not requiring blood pressure medication. CAD: Will continue with aspirin and Plavix. Atrial fibrillation with history of pacemaker not on chronic anti coagulation therapy: Will continue with aspirin and Plavix. Carvedilol discontinued due to hypotension. No need for further cardiac intervention. Anemia of chronic disease: Hemoglobin stable after transfusion. Will try to maintain hemoglobin above 8.0. Time Spent Managing Pts Care (In Minutes): 55
--- NOTE | 2018-02-17 10:39 | RAD REPORT ---
EXAM DESCRIPTION: RAD - Chest Single View - 02/17/2018 6:06 am CLINICAL HISTORY: follow up acute resp. failure Chest pain. COMPARISON: Chest Single View dated 02/16/2018; Chest Single View dated 02/16/2018; Chest Single Vie w dated 02/15/2018; Chest Single View dated 12/17/2017 FINDINGS: Portable technique limits examination quality. The lungs are grossly clear. Small left pleural effusion. The heart is mildly enlarged in size.Multil ead pacer wires are present. Left-sided venous catheter tip in the SVC. The patient has been extubate d.
[2018-02-17] MEDS: EPOETIN ALFA 10,000 UNIT/ML VIAL IV SCH (11:01)
--- NOTE | 2018-02-17 15:29 | PN ---
Mrs. Thakkar seems to be doing better today. She is extubated and not on a pressor, not having chest pain. Current medical therapy is adequate. I do not recommend a cardiac cath. FEROZ/ADITI Voice ID: [id number] Report ID: [id number]
[2018-02-17] MEDS ORDERED: IPRATROPIUM BROM 0.5MG/2.5ML NEB PRN (17:56)
[2018-02-17] MEDS ORDERED: LEVALBUTEROL 0.63 MG/3 ML NEB NEB PRN (17:57)
[2018-02-17] MEDS: ATORVASTATIN 10 MG TAB PO SCH (20:38)
[2018-02-17] MEDS: MULTIVITAMIN TAB PO SCH (20:38)
--- NOTE | 2018-02-18 02:33 | PN ---
Date of Progress Note: 02/17/2018 Chief Complaint: End-stage renal disease. History Of Present Illness: The patient underwent dialysis today. The patient has multiple medical problems. The patient was intubated because of respiratory failure and hypotension. The patient is awake, alert, and extubated , undergoing dialysis for metabolic clearance and ultrafiltration. She is feeling better today. Review of Systems: Respiratory: Denies PND, orthopnea. Cardiovascular: Denies chest pain, palpitation. GI: Denies nausea, vomiting. Physical Examination: Lungs: Clear to auscultation bilaterally. Heart: S1, S2. Abdomen: Soft, benign. Extremities: Minimal edema. Lab Results: Hemoglobin 8.1, WBC 5.7, platelet count is 144,000. Chemistry showed sodium 140, potassium 3.5, chloride 104, CO2 27, BUN 17, creatinine 2.2. Impression: 1. End-stage renal disease, azotemia, and volemia well controlled. The patient is undergoing daily dialysis to control fluid overload. The patient was intubated because of respiratory failure and hypotension. Blood pressure is stabilizing. The patient has history of coronary artery disease and Cardiology consultation was obtained. 2. Anemia. The patient received blood transfusion. Continue ROMELIA for anemia due to chronic kidney disease. 3 . Congestive heart failure , monitor fluid balance , adjust UF with HD, monitor Bp during hd and titrate UF to prevent intradialytic hypotension. 4. Renal osteodystrophy, monitor PO4 level , resume binders when pt is extubated. I spent total 36 min including 25 min to coordinate care plan. STEPHON/ADITI Voice ID: [id number] Report ID: [id number] KARLEE
[2018-02-18] MEDS: PANTOPRAZOLE 40MG TABLET PO SCH (05:35)
[2018-02-18 06:36] LABS: Magnesium 1.9 mg/dL (1.8-2.4); Potassium 3.6 mmol/L (3.5-5.1)
[2018-02-18 06:39] LABS: Absolute Lymphocytes (CBC) 0.6 K/uL (0.7-4.9); Absolute Monocytes 0.7 K/uL (0.1-1.3); Absolute Neutrophil 3.6 K/uL (1.8-8.0); Basophils % 1.1 % (0-1.3); Eosinophils % 5.8 % (0-4.4); Lymphocytes % 12.1 % (15.3-44.8); Monocytes % 12.5 % (3.3-12.3)
--- NOTE | 2018-02-18 07:51 | RAD REPORT ---
EXAM DESCRIPTION: RAD - Chest Single View - 02/18/2018 6:48 am CLINICAL HISTORY: Acute respiratory failure COMPARISON: February 17 TECHNIQUE: AP portable chest image was obtained 0634 hours . FINDINGS: Lung volumes remain low. Interstitial markings are prominent. Lung markings have increased in prominence. This could be a combination of shallow inspiration and increasing edema. Heart size i s upper normal but stable. Mild prominence of the upper lobe vasculature seen. Pacemaker and dialysis catheter remain in place. No pneumothorax. Small bilateral pleural effusions are suspected. No acute bony abnormality seen. No acute aortic findings suspected. IMPRESSION: Increased upper lobe vasculature and increased interstitial markings suspicious for deve loping edema. Small bilateral pleural effusions evident.
[2018-02-18] MEDS: ARFORMOTEROL TARTRATE 15 MCG/2 ML VIAL.NEB NEB SCH ×2 (08:58→20:05)
[2018-02-18] MEDS: ASCORBIC ACID 500 MG TABLET PO SCH (10:11)
[2018-02-18] MEDS: CLOPIDOGREL 75 MG TABLET PO SCH (10:11)
[2018-02-18] MEDS: ASPIRIN EC 81 MG TAB PO SCH (10:11)
--- NOTE | 2018-02-18 10:20 | P.PN ---
Subjective Date of Service: 02/18/18 Primary Care Provider: Dr. Curiel; Nephrology-Dr. Sheldon Chief Complaint: Respiratory failure Subjective: Other (Patient continues to do well. No significant edema to the lower extremity.) Physical Examination - Vital Signs Temperature: 98.6 F Blood Pressure: 120/57 Pulse: 92 Respirations: 20 Pulse Ox (%): 96 - Physical Exam General: Alert, In no apparent distress, Oriented x3, Cooperative HEENT: Atraumatic Neck: Supple Respiratory: Crackles/rales ([place] mall crackles to the bases) Cardiovascular: Irregular heart rate/rhythm (Atrial fibrillation rate controlled ) Gastrointestinal: Normal bowel sounds, Soft and benign, Non-distended, No tenderness, No masses, No rebound, No guarding Musculoskeletal: No erythema, No tenderness, No warmth Integumentary: No tenderness/swelling (No edema to the lower extremities bilateral), No erythema, No warmth, No cyanosis Neurological: Normal speech, Normal strength at 5/5 x4 extr, Normal tone, Normal affect - Studies Medications List Reviewed: Yes Assessment & Plan Discharge Plan: Home Plan to discharge in: 24 Hours Physician Review Additional Text: Impression: Acute on chronic respiratory failure with respiratory arrest likely multifactorial secondary with hypotension, acute on chronic anemia, acute on chronic diastolic CHF with moderate pulmonary hypertension complicated with COPD oxygen-dependent at a risk for aspiration with noted bilateral pleural effusions End-stage renal disease on hemodialysis Hypertension with noted hypotension Hyperlipidemia CAD Atrial fibrillation with history of pacemaker not on chronic anti coagulation therapy Acute on chronic Anemia of chronic disease Plan: Acute on chronic respiratory failure with respiratory arrest likely multifactorial secondary with hypotension, acute on chronic anemia, acute on chronic diastolic CHF with moderate pulmonary hypertension complicated with COPD oxygen-dependent at a risk for aspiration with noted bilateral pleural effusions: Patient was transferred from ICU to the floor yesterday. Patient doing well at this time. Continue with dialysis. Her condition has improved. Patient uses home oxygen. Encourage ambulation. Anticipate discharge likely tomorrow. Continue with 1500 cc per day fluid restriction. Patient does not desire to go to a skilled facility. She prefers to go home. 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 I will turn the service over to Dr. Cueto tomorrow. I will go over the plan of care with her. End-stage renal disease on hemodialysis: Nephrology consulted. Continue with dialysis. Hypertension with noted hypotension: Patient remains off blood pressure medication. Will monitor closely off medication. CAD: Will continue with aspirin and Plavix. Atrial fibrillation with history of pacemaker not on chronic anti coagulation therapy: Will continue with aspirin and Plavix. Carvedilol discontinued due to hypotension. No need for further cardiac intervention. Anemia of chronic disease: Hemoglobin stable after transfusion. Will continue monitor closely. Will try to maintain hemoglobin above 8.0. Time Spent Managing Pts Care (In Minutes): 55
--- NOTE | 2018-02-18 11:54 | ECHO ---
HEIGHT: 4 ft 11 in WEIGHT: 129 lb 1.6 oz DATE OF STUDY: 02/17/[address]: Maxi Burnett MD 2-DIMENSIONAL: YES M.MODE: YES DOPPLER: YES COLOR FLOW: YES TDS: PORTABLE: DEFINITY: BUBBLE STUDY: DIAGNOSIS: CONGESTIVE HEARD FAILURE/ CORONARY ARTERY DISEASE. CARDIAC HISTORY: CATHERIZATION: NO SURGERY: YES PROSTHETIC VALVE: NO PACEMAKER: YES MEASUREMENTS (cm) DIASTOLIC (NORMALS) SYSTOLIC (NORMALS) IVSd 1.2 (0.6-1.2) LA Diam 4.3 (1.9-4.0) LVEF 40-45% LVIDd 3.6 (3.5-5.7) LVIDs 3.0 (2.0-3.5) %FS 17% LVPWd 1.5 (0.6-1.2) Ao Diam 2.8 (2.0-3.7) 2 DIMENSIONAL ASSESSMENT: RIGHT ATRIUM: DILATED LEFT ATRIUM: DILATED RIGHT VENTRICLE: PACEMAKER CATHETER LEFT VENTRICLE: LEFT VENTRICULAR HYPERTROPHY TRICUSPID VALVE: NORMAL MITRAL VALVE: MITRAL ANNULAR CALCIFICATION PULMONIC VALVE: NORMAL AORTIC VALVE: SCLEROSIS PERICARDIAL EFFUSION: NONE AORTIC ROOT: NORMAL LEFT VENTRICULAR WALL MOTION: POSTEROBASCAL AKINESIS. DOPPLER/COLOR FLOW: NO AORTIC STENOSIS OR AORTIC REGURGITATION. MILD MITRAL REGURGITATION AND TRICUSPID REGURGITATION. ESTIMATED RIGHT VENTRICULAR SYSTOLIC PRESSURE 50-55 mmHg. MODERATE PULMONARY HYPERTENSION. COMMENTS: MILDLY DEPRESSED LEFT VENTRICULAR EJECTION FRACTION WITH WALL MOTION ABNORMALITY. DILATED LEFT AND RIGHT ATRIUM. LEFT VENTRICULAR HYPERTROPHY. MITRAL ANNULAR CALCIFICATION. AORTIC SCLEROSIS WITH NO AORITC STENOSIS OR AORTIC REGURGITATION. PACEMAKER CATHETER. MILD MITRAL REGURGITATION AND TRICUSPID REGURGITATION. MODERATE PULMONARY HYPERTENSION. LARGE PLEURAL EFFUSION. TECHNOLOGIST: PRITI HALEY
[2018-02-18] MEDS: ATORVASTATIN 10 MG TAB PO SCH (21:30)
[2018-02-18] MEDS: MULTIVITAMIN TAB PO SCH (21:31)
--- NOTE | 2018-02-18 21:32 | PN ---
Date of Progress Note: 02/18/2018 Chief Complaint: End-stage renal disease, respiratory failure. Subjective: The patient was intubated for respiratory failure with severe hypotension. The patient received dialysis yesterday to obtain metabolic clearance and ultrafiltration. Today, the patient is stable. She was extubated yesterday. Review of Systems: The patient denies complaints. Physical Examination: Lungs: Clear to auscultation bilaterally. Heart: S1, S2. Abdomen: Soft, benign. Extremities: No edema. Laboratory Data: BUN 17, creatinine 2.2. Hemoglobin 8.1. Impression And Plan: 1.End-stage renal disease, azotemia, and volemia, well controlled. The patient is undergoing dialys is 3 times per week. She received extra dialysis to obtain metabolic clearance to control respirator y failure. The patient is currently extubated and stable hemodynamically. Next dialysis tomorrow. 2.Anemia in CKD. Blood transfusion was given during dialysis. Continue ROMELIA for anemia due to chron ic kidney disease. 3.Renal osteodystrophy. Monitor phosphorus level and adjust binders as needed. STEPHON/MODL Voice ID: [id number] Report ID: [id number]
[2018-02-19 02:39] LABS: HBsAG Nonreactive (Nonreactive)
[2018-02-19] MEDS: PANTOPRAZOLE 40MG TABLET PO SCH (06:06)
[2018-02-19 06:43] LABS: Absolute Monocytes 0.6 K/uL (0.1-1.3); Basophils % 1.2 % (0-1.3); Eosinophils % 6.6 % (0-4.4); Hematocrit 28.6 % (36.0-45.0); Lymphocytes % 14.4 % (15.3-44.8); MPV 8.9 fL (7.6-11.3); Monocytes % 8.5 % (3.3-12.3); RBC Red Blood Cell Count 3.16 M/uL (3.86-4.86)
[2018-02-19 07:07] LABS: Magnesium 1.9 mg/dL (1.8-2.4); Potassium 3.9 mmol/L (3.5-5.1)
[2018-02-19] MEDS: ARFORMOTEROL TARTRATE 15 MCG/2 ML VIAL.NEB NEB SCH ×2 (07:55→19:15)
--- NOTE | 2018-02-19 08:02 | EKG ---
Test Date: 2018-02-18 Test Time: 12:23:01 Assembly Person: RENUKA MEASUREMENT RESULTS: Intervals: Rate: 129 CT: QRSD: 138 QT: 338 QTc: 495 [place]: P: CT: QRS: -42 T: 160 INTERPRETIVE STATEMENTS: Atrial fibrillation with rapid ventricular response with premature ventricular or aberrantly conducted complexes Left axis deviation Nonspecific intraventricular block T wave abnormality, consider lateral ischemia or digitalis effect Abnormal ECG Compared to ECG 02/16/2018 00:47:04 Ventricular premature complex(es) now present Sinus rhythm no longer present Electronically Signed On 02-19-18 08:02:03 CHUCKING LATHE OPERATOR by Maxi Burnett
[2018-02-19] MEDS: ASCORBIC ACID 500 MG TABLET PO SCH (09:00)
[2018-02-19] MEDS: CLOPIDOGREL 75 MG TABLET PO SCH (09:00)
[2018-02-19] MEDS: ASPIRIN EC 81 MG TAB PO SCH (09:00)
[2018-02-19] MEDS: EPOETIN ALFA 10,000 UNIT/ML VIAL IV SCH (10:56)
--- NOTE | 2018-02-19 13:37 | PN ---
CARDIOLOGY PROGRESS NOTE Mrs. Thakkar goes in and out of AFib, rapid response frequently. She has a pacemaker, so I think it w ould be a good idea to try and give her an antiarrhythmic. Most of the antiarrhythmics are contraind icated, the only one that is likely to work that is not contraindicated completely is amiodarone, so we will start on p.o. amiodarone load and see if that will control her heart rate better to keep her in sinus rhythm more of the time. FEROZ/ADITI Voice ID: [id number] Report ID: [id number]
--- NOTE | 2018-02-19 17:28 | P.PN ---
Subjective Date of Service: 02/19/18 Primary Care Provider: Dr. Curiel; Nephrology-Dr. Sheldon Chief Complaint: Respiratory failure Patient seen and examined at bedside with RN. Chart reviewed. Case discussed with nephrology at this time. Patient currently awaiting dialysis at this time. Patient currently states that she does not wish to go home today as it is raining outside. States that she will not be able to care for her self overnight today. And feels that she has not had any difference in her symptoms should she came in. Review of Systems 10-point ROS is otherwise unremarkable Physical Examination - Vital Signs Temperature: 98.6 F Blood Pressure: 109/68 Pulse: 120 Respirations: 21 Pulse Ox (%): 95 - Physical Exam General: Alert, Mild distress HEENT: Atraumatic, PERRLA, EOMI Neck: Supple, JVD not distended Respiratory: Normal air movement, Crackles/rales, Expiratory wheezes, Inspiratory wheezes Cardiovascular: Regular rate/rhythm, Normal S1 S2 Gastrointestinal: Normal bowel sounds, No tenderness Musculoskeletal: No tenderness Integumentary: No rashes Neurological: Normal speech, Normal tone, Normal affect Lymphatics: No axilla or inguinal lymphadenopathy - Studies Medications List Reviewed: Yes Assessment And Plan - Current Problems (Diagnosis) (1) Acute respiratory failure Onset Date: 04/24/17 Current Visit: No Status: Acute Plan: Acute Respiratory Failure Most Likely 2.2 to Multifactorial (CHF exacerbation vs COPD exacerbation vs ESRD) -now resolved -Weaned off BIPAP and now on NC. Will wean off as tolerated. Pt does use O2 at home -continue to monitor closely. Qualifiers: Respiratory failure complication: hypoxia Qualified Code(s): J96.01 - Acute respiratory failure with hypoxia (2) Pleural effusion Current Visit: Yes Status: Acute Plan: Most likely secondary to volume overload secondary to CHF versus end-stage renal disease -patient to receive hemodialysis for end-stage renal disease -for repeat x-ray tomorrow morning. (3) Acute on chronic diastolic CHF (congestive heart failure) Onset Date: 04/24/17 Current Visit: No Status: Acute Plan: Acute on chronic CHF exacerbation -patient restarted on hemodialysis at this time. -acute phase of CHF exacerbation now resolved -will continue with home medication at this time (4) COPD (chronic obstructive pulmonary disease) Onset Date: 10/04/14 Current Visit: No Status: Chronic Plan: Acute on chronic COPD exacerbation -Duonebs, steroids now weaned off to nasal cannula. -oxygen-dependent at home as well Qualifiers: COPD type: COPD with acute exacerbation Qualified Code(s): J44.1 - Chronic obstructive pulmonary disease with (acute) exacerbation (5) Afib Onset Date: 10/04/14 Current Visit: No Status: Chronic Plan: Stable at this time restarted on amiodarone and Plavix at home Qualifiers: Atrial fibrillation type: chronic Qualified Code(s): I48.2 - Chronic atrial fibrillation (6) Anemia, chronic disease Onset Date: 10/18/17 Current Visit: No Status: Chronic Plan: Stable at this time (7) CAD (coronary artery disease) Onset Date: 10/04/14 Current Visit: No Status: Chronic Qualifiers: Coronary Disease-Associated Artery/Lesion type: [place] artery [place] vs. transplanted heart: [place] heart Associated angina: without angina Qualified Code(s): I25.10 - Atherosclerotic heart disease of [place] coronary artery without angina pectoris (8) ESRD (end stage renal disease) on dialysis Onset Date: 12/16/17 Current Visit: No Status: Chronic (9) GERD (gastroesophageal reflux disease) Onset Date: 06/24/17 Current Visit: No Status: Chronic Qualifiers: Esophagitis presence: without esophagitis Qualified Code(s): K21.9 - Gastro -esophageal reflux disease without esophagitis (10) History of cardiac pacemaker Onset Date: 04/24/17 Current Visit: No Status: Chronic (11) Hyperlipidemia Onset Date: 04/24/17 Current Visit: No Status: Chronic Qualifiers: Hyperlipidemia type: unspecified Qualified Code(s): E78.5 - Hyperlipidemia , unspecified - Plan Patient is currently pending clinical improvement. Will follow up post dialysis at this time. Anticipate discharge in next 24-48 hr. Patient will need to have followup appointment with pulmonology, nephrology, PCP once ready for discharged here from the hospital. Discharge Plan: Home Plan to discharge in: 48 Hours - Code Status/Comfort Care Code Status Assessed: Yes Critical Care: No
--- NOTE | 2018-02-19 19:47 | P.PN ---
Subjective Date of Service: 02/19/18 Primary Care Provider: Dr. Curiel; Nephrology-Dr. Sheldon Chief Complaint: Respiratory failure Subjective: Improving Pt admitted for SOb, required intubation had HD today, feels better but doesnt want to go home due to rain Physical Examination - Vital Signs Temperature: 98.6 F Blood Pressure: 109/68 Pulse: 120 Respirations: 21 Pulse Ox (%): 95 - Physical Exam General: Oriented x3 Neck: Supple, Without JVD or thyroid abnormality Respiratory: Diminished Cardiovascular: No edema, Regular rate/rhythm, Normal S1 S2 Gastrointestinal: Normal bowel sounds, Soft and benign - Studies Medications List Reviewed: Yes Assessment And Plan - Current Problems (Diagnosis) (1) Respiratory failure Current Visit: Yes Status: Acute Qualifiers: Chronicity: acute on chronic (2) Anemia Onset Date: 04/24/17 Current Visit: No Status: Chronic Qualifiers: Anemia type: iron deficiency Iron deficiency anemia type: unspecified iron deficiency Qualified Code(s): D50.9 - Iron deficiency anemia, unspecified (3) ESRD (end stage renal disease) on dialysis Onset Date: 12/16/17 Current Visit: No Status: Chronic - Plan End-stage renal disease on HD MWF via [facility] cath HD today will do HD again tomorrow renal dose meds Anemia in CKD. Cont RMOELIA Renal osteodystrophy. Monitor phosphorus level and adjust binders as needed. Afib ratre controlled on amiodarone
[2018-02-19] MEDS: MULTIVITAMIN TAB PO SCH (21:14)
[2018-02-19] MEDS: AMIODARONE HCL 200 MG TAB PO SCH (21:15)
[2018-02-19] MEDS: ATORVASTATIN 10 MG TAB PO SCH (21:15)
[2018-02-20 05:20] LABS: Absolute Lymphocytes (CBC) 0.6 K/uL (0.7-4.9); Absolute Monocytes 0.6 K/uL (0.1-1.3); Absolute Neutrophil 3.5 K/uL (1.8-8.0); Basophils % 0.9 % (0-1.3); Eosinophils % 5.8 % (0-4.4); Hematocrit 25.7 % (36.0-45.0); Lymphocytes % 12.5 % (15.3-44.8); MPV 8.8 fL (7.6-11.3); RBC Red Blood Cell Count 2.82 M/uL (3.86-4.86)
[2018-02-20 05:30] LABS: Potassium 3.9 mmol/L (3.5-5.1)
[2018-02-20] MEDS: PANTOPRAZOLE 40MG TABLET PO SCH (05:40)
[2018-02-20 05:54] VITALS: BMI 25.2
--- NOTE | 2018-02-20 07:51 | RAD REPORT ---
EXAM DESCRIPTION: RAD - Chest Single View - 02/20/2018 6:27 am CLINICAL HISTORY: Cough and congestion, pleural effusion COMPARISON: February 18 TECHNIQUE: AP portable chest image was obtained 0612 hours . FINDINGS: Lung volumes remain low. Interstitial markings remain prominent. No new or progressive sally g parenchymal process seen. Left greater than right pleural effusions are still present with possible minimal enlargement on the left. Heart size is upper normal. Vasculature within normal limits. Pacem prosper and dialysis catheter remain in place. No pneumothorax. No acute bony abnormality seen. No acute aortic findings suspected. IMPRESSION: No substantial change to the chest from February 18. Left-sided pleural effusion may be fractionally larger.
[2018-02-20] MEDS: ARFORMOTEROL TARTRATE 15 MCG/2 ML VIAL.NEB NEB SCH (08:00)
[2018-02-20] MEDS: ASPIRIN EC 81 MG TAB PO SCH (09:55)
[2018-02-20] MEDS: ASCORBIC ACID 500 MG TABLET PO SCH (09:56)
[2018-02-20] MEDS: AMIODARONE HCL 200 MG TAB PO SCH (09:56)
[2018-02-20] MEDS: CLOPIDOGREL 75 MG TABLET PO SCH (09:56)
--- NOTE | 2018-02-20 11:35 | P.PN ---
Subjective Date of Service: 02/23/18 Primary Care Provider: Dr. Curiel; Nephrology-Dr. Sheldon Chief Complaint: Respiratory failure Subjective: Improving Pt admitted for SOb, required intubation today looks better , off O2 will arrange for HD today can be discharged after HD today to resume home HD tomorrow Physical Examination - Vital Signs Temperature: 98.3 F Blood Pressure: 123/56 Pulse: 83 Respirations: 20 Pulse Ox (%): 99 - Physical Exam General: In no apparent distress, Oriented x3 HEENT: Atraumatic Neck: Supple, Without JVD or thyroid abnormality (decreased air entry ) Cardiovascular: Normal pulses, Regular rate/rhythm, Normal S1 S2 - Studies Microbiology Data (last 24 hrs): 02/15/18 09:20 Blood - Blood Aerobic Blood Culture - Final No growth in 5 days. 02/15/18 09:20 Blood - Blood Anaerobic Blood Culture - Final No growth in 5 days. 02/15/18 09:05 Blood - Blood Aerobic Blood Culture - Final No growth in 5 days. 02/15/18 09:05 Blood - Blood Anaerobic Blood Culture - Final No growth in 5 days. Medications List Reviewed: Yes Assessment And Plan - Current Problems (Diagnosis) (1) Respiratory failure Status: Acute Qualifiers: Chronicity: acute on chronic (2) Anemia Onset Date: 04/24/17 Status: Chronic Qualifiers: Anemia type: iron deficiency Iron deficiency anemia type: unspecified iron deficiency Qualified Code(s): D50.9 - Iron deficiency anemia, unspecified (3) ESRD (end stage renal disease) on dialysis Onset Date: 12/16/17 Status: Chronic - Plan End-stage renal disease on HD MWF via [facility] cath HD today renal dose meds can be discharged from nephrology point of view and resume HD tomorrow at home Anemia in CKD. Cont ROMELIA Renal osteodystrophy. Monitor phosphorus level and adjust binders as needed. Afib rate controlled on amiodarone
[2018-02-20 13:44] VITALS: O2SAT 95
[2018-02-20] MEDS ORDERED: NA CHLORIDE 0.9% 1,000 ML IV ONE (13:54)
--- NOTE | 2018-02-20 17:13 | P.DS ---
Admission Date: 02/16/18 Discharge Date: 02/20/18 Primary Care Provider: Dr. Curiel; Nephrology-Dr. Sheldon Disposition: ROUTINE DISCHARGE Discharge Condition: GOOD Reason for Admission: Respiratory failure Consultations: Nephrology Pulmonology - Problems (1) Acute respiratory failure Onset Date: 04/24/17 Status: Acute Qualifiers: Respiratory failure complication: hypoxia Qualified Code(s): J96.01 - Acute respiratory failure with hypoxia (2) Pleural effusion Status: Acute (3) Acute on chronic diastolic CHF (congestive heart failure) Onset Date: 04/24/17 Status: Acute (4) COPD (chronic obstructive pulmonary disease) Onset Date: 10/04/14 Status: Chronic Qualifiers: COPD type: COPD with acute exacerbation Qualified Code(s): J44.1 - Chronic obstructive pulmonary disease with (acute) exacerbation (5) Afib Onset Date: 10/04/14 Status: Chronic Qualifiers: Atrial fibrillation type: chronic Qualified Code(s): I48.2 - Chronic atrial fibrillation (6) Anemia, chronic disease Onset Date: 10/18/17 Status: Chronic (7) CAD (coronary artery disease) Onset Date: 10/04/14 Status: Chronic Qualifiers: Coronary Disease-Associated Artery/Lesion type: [place] artery [place] vs. transplanted heart: [place] heart Associated angina: without angina Qualified Code(s): I25.10 - Atherosclerotic heart disease of [place] coronary artery without angina pectoris (8) ESRD (end stage renal disease) on dialysis Onset Date: 12/16/17 Status: Chronic (9) GERD (gastroesophageal reflux disease) Onset Date: 06/24/17 Status: Chronic Qualifiers: Esophagitis presence: without esophagitis Qualified Code(s): K21.9 - Gastro -esophageal reflux disease without esophagitis (10) History of cardiac pacemaker Onset Date: 04/24/17 Status: Chronic (11) Hyperlipidemia Onset Date: 04/24/17 Status: Chronic Qualifiers: Hyperlipidemia type: unspecified Qualified Code(s): E78.5 - Hyperlipidemia , unspecified Brief History of Present Illness: 87-year-old female presented emergency room with increasing shortness of breath and edema to the lower extremities. Patient with history of COPD oxygen-dependent, chronic diastolic CHF with moderate pulmonary hypertension, chronic pleural effusion, end-stage renal disease on hemodialysis at home, atrial fibrillation with pacemaker, anemia coronary disease, hypertension and hyperlipidemia. Patient reports increasing shortness of breath over the last couple of days. She reports increasing edema as well. She further reports that last week she was treated for influenza. She was recent hospitalized on December 13 through December 19 for acute respiratory failure secondary to COPD and CHF. Patient reports that her last dialysis was on Saturday. She apparently missed yesterday. In the ER patient was slightly tachypneic and tachycardic. Patient had edema to the lower extremities. Vitals improved. Blood pressure 124/64, heart rate 108. White count 6.0, hemoglobin 7.5, platelet count 144. Sodium 135, potassium 3.9, BUN of 40, creatinine 4.6 with a GFR of 9. Glucose 112. Chest x-ray shows bilateral pleural effusion. Lactic acid negative. Pro calcitonin unremarkable. Influenza test negative. Patient admitted for further treatment. In the ER patient appeared stable. Vital signs improved. Patient on oxygen. Lower extremity edema and noted. Previous hospitalization reviewed. Echocardiogram 45% with moderate pulmonary hypertension noted. Hospital Course: Overall during the hospital stay patient remained stable Patient was initially admitted to the hospital for progressive worsening of her shortness of breath and edema. Patient most likely had volume overload secondary to multifactorial reasons secondary to CHF versus end-stage renal disease and COPD exacerbation. Patient after admission was started on hemodialysis here by nephrology. Had marked improvement in her shortness of breath. Patient was continued on IV Lasix as well while here in the hospital. Patient has a hemodialysis sessions were continued for 3 days and patient had marked improvement in her swelling along with her shortness of breath. Patient does do home dialysis and sometimes states that she forgets to do it and thus becomes short of breath. Patient was educated extensively on the need to be compliant with dialysis at home. Nephrology continued to follow the patient here along with thus while she was here in the hospital. For patient's COPD exacerbation patient care on duo nebs, steroids and oxygen while here in the hospital. Patient had marked improvement in her shortness of breath again and was then discharged home under stable condition. Patient was asked to work with physical therapy when she is discharged home. She does have home health providers along with home health rehab that comes to do physical therapy and occupational therapy with the patient. Patient then was discharged home under stable condition was asked to follow up with primary care provider about 1-2 days post discharge Vital Signs/Physical Exam: Temp Pulse Resp BP Pulse Ox 98 F 114 H 20 86/60 L 99 02/20/18 12:00 02/20/18 12:00 02/20/18 12:00 02/20/18 12:00 02/20/18 12:00 General: Alert, In no apparent distress HEENT: Atraumatic, PERRLA, EOMI Neck: Supple, JVD not distended Respiratory: Clear to auscultation bilaterally, Normal air movement Cardiovascular: Regular rate/rhythm, Normal S1 S2 Gastrointestinal: Normal bowel sounds, No tenderness Musculoskeletal: No tenderness Integumentary: No rashes Neurological: Normal speech, Normal tone, Normal affect Lymphatics: No axilla or inguinal lymphadenopathy Laboratory Data at Discharge: WBC 5.1 K/uL (4.3-10.9) D 02/20/18 04:40 Hgb 8.3 g/dL (12.0-15.0) L 02/20/18 04:40 Hct 25.7 % (36.0-45.0) L 02/20/18 04:40 Plt Count 150 K/uL (152-406) L D 02/20/18 04:40 PT 13.8 SECONDS (9.5-12.5) H 02/15/18 09:05 INR 1.17 02/15/18 09:05 APTT 26.7 SECONDS (24.3-36.9) 02/15/18 09:05 Sodium 137 mmol/L (136-145) 02/20/18 04:40 Potassium 3.9 mmol/L (3.5-5.1) 02/20/18 04:40 BUN 14 mg/dL (7-18) 02/20/18 04:40 Creatinine 2.45 mg/dL (0.55-1.3) H 02/20/18 04:40 Glucose 115 mg/dL (74-106) H 02/20/18 04:40 Magnesium 2.0 mg/dL (1.8-2.4) 02/20/18 04:40 Total Bilirubin 0.3 mg/dL (0.2-1.0) 02/15/18 09:05 AST 11 U/L (15-37) L 02/15/18 09:05 ALT 11 U/L (12-78) L 02/15/18 09:05 Alkaline Phosphatase 83 U/L (45-117) 02/15/18 09:05 Troponin I 0.37 ng/mL (0.0-0.045) H 02/16/18 02:20 Lipase 177 U/L (73-393) 02/15/18 09:05 Home Medications: Carvedilol 12.5 mg PO BID 09/06/17 Clopidogrel Bisulfate [Plavix*] 75 mg PO DAILY 09/06/17 Multivit,Ther Iron,Ca,FA & Min [Centrum Tablet*] 1 tab PO BEDTIME 09/06/17 Ascorbic Acid [Vitamin C] 250 mg PO DAILY 11/12/17 Aspirin 81 mg PO DAILY 11/12/17 Pravastatin Sodium [Pravachol] 80 mg PO DAILY 11/12/17 Ergocalciferol (Vitamin D2) [Vitamin D 50,000 Unit Cap] 1 cap PO EVERY 7TH DAY 12/14/17 Patient Discharge Instructions: Okay to DC post dialysis. No new medication Diet: Regular Activity: Ad jessica Followup: Burak Sheldon MD [ACTIVE - CAN ADMIT] - 1 Week (call to schedule an appointment) Abhinav Curiel DO, DO [ACTIVE - CAN ADMIT] - 1-2 Weeks (call to schedule an appointment)
--- NOTE | 2018-02-21 00:58 | PN ---
Date of Progress Note: 02/20/2018 Ms. Thakkar was admitted to Dr. Cueto, has been seen and followed by Dr. Burnett since February 16 8. She came in with hypotension, received norepinephrine which probably caused her to be positive fo r the troponin. She had been intubated. She is now extubated. Echocardiogram showed an ejection fr action of 40% to 45% with moderate pulmonary hypertension. She has normal pacemaker function. Today , she remains in atrial fibrillation, heart rate 90, on p.o. amiodarone. We will continue that amiod arone dose. She will need to be on that dose for approximately 7 days total, then we need to cut it down to 200 mg daily. We can see her as an outpatient. MISSY/ADITI Voice ID: [id number] Report ID: [id number]
[2018-02-23 07:28] VITALS: BP 123/56; TEMP 98.3
[2018-02-23] MEDS ORDERED: DRISDOL (VITAMIN D=ERGOCALCIFEROL) 50000 UNIT CAP PO SCH (09:00)
== END 2018-02-20 13:55 | disposition home health service (06) | DRG 291 ==
LOC: ER 08:40 → ERHOLD 10:59 → 2ND 13:11 → 3RD-ICU 02-16 01:12 → OBSVTOIN 02-16 09:40 → 2ND 02-17 15:40
PROVIDERS: ADMIT Family Medicine; ATTEND Family Medicine
PROC: 5A1D70Z Performance of Urinary Filtration, Intermittent, Less than 6 Hours Per Day (ICD-10-PCS; 2018-02-15)
PROC: 5A1935Z Respiratory Ventilation, Less than 24 Consecutive Hours (ICD-10-PCS; principal; 2018-02-16)
PROC: 0BH17EZ Insertion of Endotracheal Airway into Trachea, Via Natural or Artificial Opening (ICD-10-PCS; 2018-02-16)
PROC: 30233N1 Transfusion of Nonautologous Red Blood Cells into Peripheral Vein, Percutaneous Approach (ICD-10-PCS; 2018-02-16)
PROC: 5A1D70Z Performance of Urinary Filtration, Intermittent, Less than 6 Hours Per Day (ICD-10-PCS; 2018-02-16)
PROC: 02HV33Z Insertion of Infusion Device into Superior Vena Cava, Percutaneous Approach (ICD-10-PCS; 2018-02-16)
PROC: 5A1D70Z Performance of Urinary Filtration, Intermittent, Less than 6 Hours Per Day (ICD-10-PCS; 2018-02-17)
PROC: 5A1D70Z Performance of Urinary Filtration, Intermittent, Less than 6 Hours Per Day (ICD-10-PCS; 2018-02-19)
DX: I13.2 Hypertensive heart and chronic kidney disease with heart failure and with stage 5 chronic kidney disease, or end stage renal disease (principal); J96.21 Acute and chronic respiratory failure with hypoxia; N18.6 End stage renal disease; I50.33 Acute on chronic diastolic (congestive) heart failure; R09.2 Respiratory arrest; J44.1 Chronic obstructive pulmonary disease with (acute) exacerbation; J90 Pleural effusion, not elsewhere classified; I48.2 Chronic atrial fibrillation; I25.10 Atherosclerotic heart disease of native coronary artery without angina pectoris; K21.9 Gastro-esophageal reflux disease without esophagitis; Z95.0 Presence of cardiac pacemaker; E78.5 Hyperlipidemia, unspecified; Z99.81 Dependence on supplemental oxygen; Z99.2 Dependence on renal dialysis; Z91.15 Patient's noncompliance with renal dialysis; Z88.0 Allergy status to penicillin; Z88.8 Allergy status to other drugs, medicaments and biological substances; Z91.041 Radiographic dye allergy status; Z95.5 Presence of coronary angioplasty implant and graft; I95.9 Hypotension, unspecified; D63.1 Anemia in chronic kidney disease; N25.0 Renal osteodystrophy; D50.9 Iron deficiency anemia, unspecified
CPT/HCPCS: 36415; 36430; 71045; 80048; 80076; 81003; 81015; 82550; 82553; 82962; 83605; 83690; 83735; 84145; 84484; 85014; 85018; 85025; 85610; 85730; 86704; 86706; 86803; 86850; 86900; 86901; 87040; 87340; 87804; 90935; 93005; 93306; 94002; 96361; 96365; 96366; 96367; 97110; 97116; 97163; 97530; 99285; J0692; J1644; J2250; J3010; J3370; J7030; J7605; P9016; Q4081

== ENCOUNTER 2018-03-17 11:09 | Inpatient (IN) | payer OTHER ==
[2018-03-17] MEDS ORDERED: IPRATROPIUM BROM 0.5MG/2.5ML ONE (11:36)
[2018-03-17] MEDS ORDERED: LEVALBUTEROL 1.25 MG/3 ML NEB ONE (11:36)
[2018-03-17] MEDS ORDERED: METHYLPREDNISOLONE 125 MG INJ ONE (11:36)
[2018-03-17 11:43] LABS: Protime INR 1.18
[2018-03-17 11:45] LABS: Absolute Lymphocytes (CBC) 0.9 K/uL (0.7-4.9); Absolute Monocytes 0.6 K/uL (0.1-1.3); Absolute Neutrophil 5.4 K/uL (1.8-8.0); Basophils % 0.7 % (0-1.3); Eosinophils % 0.6 % (0-4.4); Hematocrit 32.9 % (36.0-45.0); Lymphocytes % 12.8 % (15.3-44.8); MPV 9.1 fL (7.6-11.3); Monocytes % 9.1 % (3.3-12.3)
[2018-03-17] MEDS ORDERED: CEFEPIME/SWI 1gm 1 GM/10 ML SYR IV ONE (11:45)
[2018-03-17] MEDS ORDERED: ONDANSETRON 4 MG/2 ML VIAL ONE (11:49)
--- NOTE | 2018-03-17 11:51 | RAD REPORT ---
EXAM DESCRIPTION: RAD - Chest Single View - 03/17/2018 11:45 am CLINICAL HISTORY: COUGH Chest pain. COMPARISON: Chest Single View dated 02/20/2018; Chest Single View dated 02/18/2018; Chest Single View da tsering 02/17/2018; Chest Single View dated 02/16/2018 FINDINGS: Portable technique limits examination quality. Mild interstitial pulmonary edema is seen. Bilateral pleural effusions are present, mildly larger on the right. The heart is moderately enlarged in size with dual lead pacer device present. Left-sided v enous catheter tip in the SVC. IMPRESSION: Mild CHF versus volume overload pattern is suspected.
[2018-03-17 12:01] LABS: Arterial Blood Carboxyhemoglob 1.4 % (0-1.5)
[2018-03-17 12:10] LABS: CKMB Creatine Kinase MB 4.1 ng/mL (0.3-3.6)
[2018-03-17] MEDS ORDERED: FUROSEMIDE 100 MG/10 ML VIAL IV ONE (12:16)
[2018-03-17 12:54] LABS: Albumin 3.1 g/dL (3.4-5.0); Bilirubin Direct 0.2 mg/dL (0-0.2); Bilirubin Total 0.4 mg/dL (0.2-1.0); Magnesium 2.1 mg/dL (1.8-2.4); Potassium 4.7 mmol/L (3.5-5.1); Protein, Total 6.4 g/dL (6.4-8.2); Troponin (Emerg Dept Use Only) 0.14 ng/mL (0.0-0.045)
[2018-03-17] MEDS ORDERED: IPRATROPIUM BROM 0.5MG/2.5ML NEB PRN (12:55)
[2018-03-17] MEDS ORDERED: ALBUTEROL 2.5 MG/3 ML NEB SOL NEB PRN (12:55)
--- NOTE | 2018-03-17 12:56 | EDPHYS ---
Physician Documentation [facility] Name: Bárbara Thakkar Age: 88 yrs Sex: Female : 1930 Arrival Date: 03/17/2018 Time: 11:10 Bed 7 Private MD: ED Physician Julio Martínez HPI: 03/17 11:40 This 88 yrs old Female presents to ER via EMS with complaints of Shortness Of ma2 Breath. 11:40 The patient has shortness of breath at rest. Onset: The symptoms/episode began/occurred ma2 gradually, 3 day(s) ago. Duration: The symptoms are continuous. Associated signs and symptoms: Pertinent positives: productive cough, Pertinent negatives: chest pain, diaphoresis, hemoptysis, loss of consciousness. Severity of symptoms: At their worst the symptoms were moderate in the emergency department the symptoms are unchanged. The patient has experienced a previous episode. Historical: - Allergies: 11:11 acetylcysteine; aa5 11:11 Ciprofloxacin; aa5 11:11 Iodinated Contrast Media - IV Dye; aa5 11:11 PENICILLINS; aa5 - PMHx: 11:11 COPD; ESRD; High Cholesterol; Hypertension; Hemodialysis-MWF; aa5 - PSHx: 11:11 Dialysis catheter to left upper chest; Pacemaker; aa5 - Immunization history:: Adult Immunizations not up to date. - Social history:: Patient/guardian denies using alcohol, street drugs, The patient lives with family, Smoking status: Patient/guardian denies using tobacco. - Ebola Screening: : No symptoms or risks identified at this time. - Family history:: not pertinent. ROS: 11:40 Constitutional: Negative for fever, chills, and weight loss, ENT: Negative for injury, ma2 pain, and discharge, Neck: Negative for injury, pain, and swelling, Cardiovascular: Negative for chest pain, palpitations, and edema, Abdomen/GI: Negative for abdominal pain, nausea, diarrhea, and constipation, : Negative for injury, bleeding, discharge, and swelling, Allergy/Immunology: Negative for hives, rash, and allergies, Endocrine: Negative for neck swelling, polydipsia, polyuria, polyphagia, and marked weight changes. 11:40 Respiratory: Positive for cough, shortness of breath, Negative for dyspnea on exertion, hemoptysis, pleurisy. 11:40 All other systems are negative. Exam: 11:40 Constitutional: This is a well developed, well nourished patient who is awake, alert, ma2 and in no acute distress. Chest/axilla: Normal chest wall appearance and motion. Nontender with no deformity. No lesions are appreciated. Cardiovascular: Regular rate and rhythm with a normal S1 and S2. No gallops, murmurs, or rubs. Normal PMI, no JVD. No pulse deficits. Abdomen/GI: Soft, non-tender, with normal bowel sounds. No distension or tympany. No guarding or rebound. No evidence of tenderness throughout. 11:40 Respiratory: moderate respiratory distress is noted, Respirations: labored breathing, Breath sounds: rales, that are moderate, are heard diffusely, Respiratory rate: 25 Vital Signs: 11:11 BP 149 / 89; Pulse 108; Resp 32 S; Temp 97.4(O); Pulse Ox 99% on 2 lpm NC; aa5 11:15 BP 144 / 89; Pulse 107; Resp 31; Pulse Ox 99% on 2 lpm NC; ca1 11:40 BP 144 / 89; Pulse 104; Resp 32 S; Pulse Ox 97% on 2 lpm NC; aa5 12:00 BP 145 / 84; Pulse 106; Resp 24; Pulse Ox 96% on BiPAP; ca1 12:05 BP 137 / 74; Pulse 74; Resp 27; Pulse Ox 97% on BiPAP; ca1 12:45 BP 122 / 82; Pulse 94; Resp 20; Pulse Ox 95% on BiPAP; ca1 13:30 BP 131 / 77; Pulse 96; Resp 26; Pulse Ox 97% on BiPAP; ca1 13:45 BP 134 / 80; Pulse 95; Resp 27; Pulse Ox 97% on BiPAP; ca1 14:30 BP 138 / 75; Pulse 93; Resp 23; Pulse Ox 97% on BiPAP; ca1 15:15 BP 134 / 73; Pulse 91; Resp 23; Pulse Ox 98% on BiPAP; ca1 16:06 BP 140 / 77; Pulse 90; Resp 20; Pulse Ox 97% on BiPAP; ca1 MDM: 11:10 Patient medically screened. ma2 11:40 Differential diagnosis: Anemia Anxiety Reaction asthma, CHF exacerbation, Chronic ma2 Obstructive Pulmonary Disease reactive airway disease, Sepsis. Antibiotic administration: The patient is for pseudomonal infection, been in hospital 2 wks ago . 12:54 Data reviewed: vital signs, nurses notes. Counseling: I had a detailed discussion with [facility] the patient and/or guardian regarding: the historical points, exam findings, and any diagnostic results supporting the discharge/admit diagnosis, the presence of at least one elevated blood pressure reading (>120/80) during this emergency department visit, the need for further work-up and treatment in the hospital. ED course: discussed with nephorlogist dr. canales and dr dasilva . 03/17 11:14 Order name: Basic Metabolic Panel [facility] 03/17 11:14 Order name: CBC with Diff; Complete Time: 12:31 [facility] 03/17 11:14 Order name: LFT's [facility] 03/17 11:14 Order name: Magnesium [facility] 03/17 11:14 Order name: NT PRO-BNP [facility] 03/17 11:14 Order name: PT-INR; Complete Time: 12:31 [facility] 03/17 11:14 Order name: Troponin (emerg Dept Use Only) [facility] 03/17 11:19 Order name: Blood Culture Adult (2) [facility] 03/17 11:19 Order name: Ckmb; Complete Time: 12:31 [facility] 03/17 11:19 Order name: CPK; Complete Time: 12:31 [facility] 03/17 11:19 Order name: D-Dimer; Complete Time: 12:31 [facility] 03/17 11:19 Order name: Lipase; Complete Time: 12:31 [facility] 03/17 11:19 Order name: Ptt, Activated; Complete Time: 12:31 [facility] 03/17 11:51 Order name: ABG 5 03/17 11:14 Order name: XRAY Chest (1 view); Complete Time: 12:31 [facility] 03/17 11:14 Order name: EKG; Complete Time: 11:15 [facility] 03/17 11:14 Order name: Cardiac monitoring; Complete Time: 11:21 [facility] 03/17 11:14 Order name: EKG - Nurse/Tech; Complete Time: 11:21 [facility] 03/17 11:43 Order name: BIPAP [facility] 03/17 12:59 Order name: Heart Healthy [facility] 03/17 13:00 Order name: CONS Physician Consult [facility] 03/17 14:10 Order name: ABG 03/17 11:14 Order name: IV Saline Lock; Complete Time: 11:36 ma2 03/17 11:14 Order name: Labs collected and sent; Complete Time: 11:36 co2 03/17 11:14 Order name: O2 Per Protocol; Complete Time: 11:21 ma2 03/17 11:14 Order name: O2 Sat Monitoring; Complete Time: 11:21 ma2 Administered Medications: 11:27 CANCELLED (Inappropriate at this time; MD discretion): Albuterol 1.25 mg Inhalation onceiw 11:30 Drug: Xopenex 1.25 mg Route: Inhalation; ca1 11:48 Follow up: Pt took off nebulized, MD notified (see nurse's notes) aa5 11:30 Drug: SOLU-Medrol 125 mg Route: IVP; Site: right antecubital; ca1 13:32 Follow up: Response: No adverse reaction; No change in condition ca1 11:30 Drug: AtroVENT Aerosol 0.5 mg Route: Inhalation; ca1 11:40 Follow up: Pt took off nebulizer, MD notified. (see nurse's notes) aa5 11:35 Drug: Cefepime 1 grams Route: IVPB; Rate: 200 ml/hr; Infused Over: 30 mins; Site: right ca1 antecubital; 13:32 Follow up: Response: No adverse reaction; IV Status: IVP per pharmacy protocol. ca1 11:42 Drug: Zofran 4 mg Route: IVP; Site: right antecubital; aa5 11:47 Follow up: Response: No adverse reaction; Nausea is decreased aa5 12:10 Not Given (Patient Refused): Lasix 100 mg IVP once ca1 13:25 Drug: vancoMYCIN 1 grams Route: IVPB; Infused Over: 2 hrs; Site: right antecubital; ca1 13:33 Follow up: IV Status: Infusion continued upon admission ca1 16:07 Follow up: Response: No adverse reaction; IV Status: Completed infusion ca1 Disposition: 03/17/18 12:55 Hospitalization ordered by Tara Dasilva for Inpatient Admission. Preliminary diagnosis is Acute pulmonary edema. - Bed requested for Telemetry/MedSurg (Inpatient). - Status is Inpatient Admission. ss - Condition is Stable. - Problem is new. - Symptoms are unchanged. UTI on Admission? No Signatures: Dispatcher [employer] Tatianna Collado Audri, RN RN aa5 Silvia Edwards RN RN ss Julio Martínez MD MD ma2 Bryanna Becker RN RN [facility] Argenis Lentz RN Corrections: (The following items were deleted from the chart) 11:27 11:19 Albuterol 1.25 mg Inhalation once ordered. ma2 iw 15:37 12:55 Hospitalization Ordered by Tara Dasilva MD for Inpatient Admission. Preliminary bd diagnosis is Acute pulmonary edema. Bed requested for Telemetry/MedSurg (Inpatient). Status is Inpatient Admission. Condition is Stable. Problem is new. Symptoms are unchanged. UTI on Admission? No. co2 17:18 15:37 03/17/2018 12:55 Hospitalization Ordered by Tara Dasilva MD for Inpatient ss Admission. Preliminary diagnosis is Acute pulmonary edema. Bed requested for Telemetry/MedSurg (Inpatient). Status is Inpatient Admission. Condition is Stable. Problem is new. Symptoms are unchanged. UTI on Admission? No. bd
--- NOTE | 2018-03-17 12:56 | ER ---
Nurse's Notes [facility] Name: Bárbara Thakkar Age: 88 yrs Sex: Female : 1930 Arrival Date: 03/17/2018 Time: 11:10 Bed 7 Private MD: Diagnosis: Acute pulmonary edema Presentation: 03/17 11:10 Presenting complaint: Patient states: SOB and productive cough since last night. EMS aa5 reports pt was wheezing and 97%O2 sat on 2 L NC Home O2. Transition of care: patient was not received from another setting of care. Onset of symptoms was February 2018. Risk Assessment: Do you want to hurt yourself or someone else? Patient reports no desire to harm self or others. Care prior to arrival: Medication(s) given: Albuterol Neb x 1, Atrovent Neb x 1. 11:10 Method Of Arrival: EMS: [facility] aa5 11:10 Acuity: CECE 2 aa5 11:10 Initial Sepsis Screen: Does the patient meet any 2 criteria? RR > 20 per min. HR > 90 ca1 bpm. Does the patient have a suspected source of infection? Yes: Productive cough/pneumonia. Triage Assessment: 11:10 General: Appears distressed, uncomfortable. Respiratory: Reports shortness of breath ca1 Onset: The symptoms/episode began/occurred today, the patient has severe shortness of breath. Historical: - Allergies: 11:11 acetylcysteine; aa5 11:11 Ciprofloxacin; aa5 11:11 Iodinated Contrast Media - IV Dye; aa5 11:11 PENICILLINS; aa5 - PMHx: 11:11 COPD; ESRD; High Cholesterol; Hypertension; Hemodialysis-MWF; aa5 - PSHx: 11:11 Dialysis catheter to left upper chest; Pacemaker; aa5 - Immunization history:: Adult Immunizations not up to date. - Social history:: Patient/guardian denies using alcohol, street drugs, The patient lives with family, Smoking status: Patient/guardian denies using tobacco. - Ebola Screening: : No symptoms or risks identified at this time. - Family history:: not pertinent. Screenin:15 Abuse screen: Denies threats or abuse. Denies injuries from another. Nutritional ca1 screening: No deficits noted. Tuberculosis screening: No symptoms or risk factors identified. Fall Risk IV access (20 points). Assessment: 11:15 General: Appears distressed, uncomfortable, Behavior is calm, cooperative, appropriate ca1 for age. Pain: Denies pain. Neuro: Level of Consciousness is awake, alert, obeys commands, Oriented to person, place, time, situation. Cardiovascular: Heart tones S1 S2 present Edema is 2+ to left midcalf, left ankle, left foot, left toes, right midcalf, right ankle, right foot and right toes Rhythm is sinus rhythm. Respiratory: Airway is patent Trachea midline Respiratory effort is even, labored, Respiratory pattern is regular, Breath sounds are coarse bilaterally. GI: Abdomen is round non-distended, Bowel sounds present X 4 quads. Abd is soft and non tender X 4 quads. : No signs and/or symptoms were reported regarding the genitourinary system. EENT: No signs and/or symptoms were reported regarding the EENT system. Derm: Skin is fragile, Skin is dry, Skin is pale, Skin temperature is cool. Musculoskeletal: Circulation, motion, and sensation intact. Capillary refill is > 3 seconds, Swelling present in right leg and left leg. 11:40 Reassessment: Pt took off nebulizer, pt states "I can't do the breathing treatment aa5 anymore, it's making me sick to my stomach". MD was notified, Astrid ordered. MD also notified of unchanged SOB and tachypnea. . General: Appears uncomfortable. 11:47 Reassessment: Pt reports nausea has improved. Awaiting ABG and Bi-PAP at this time. . aa5 11:51 Reassessment: RT at bedside completing ABG and Bi-PAP. . aa5 12:30 Reassessment: patient appears in no distress at this time. states feeling better. ca1 Breathing equal and unlabored. 12:50 Reassessment: Patient appears in no apparent distress at this time. Patient and/or ca1 family updated on plan of care and expected duration. Pain level reassessed. 14:06 Reassessment: Patient appears in no apparent distress at this time. Son at bedside. ca1 Updated on patient condition and plan of care. Pt still on BiPAP, on bed on high Tellez's position, states feeling better. 15:10 Reassessment: Patient appears in no apparent distress at this time. Patient is alert, ca1 oriented x 3, equal unlabored respirations, skin warm/dry/pink. 15:45 Reassessment: Called report at 4th, nurse will call back. ca1 Vital Signs: 11:11 BP 149 / 89; Pulse 108; Resp 32 S; Temp 97.4(O); Pulse Ox 99% on 2 lpm NC; aa5 11:15 BP 144 / 89; Pulse 107; Resp 31; Pulse Ox 99% on 2 lpm NC; ca1 11:40 BP 144 / 89; Pulse 104; Resp 32 S; Pulse Ox 97% on 2 lpm NC; aa5 12:00 BP 145 / 84; Pulse 106; Resp 24; Pulse Ox 96% on BiPAP; ca1 12:05 BP 137 / 74; Pulse 74; Resp 27; Pulse Ox 97% on BiPAP; ca1 12:45 BP 122 / 82; Pulse 94; Resp 20; Pulse Ox 95% on BiPAP; ca1 13:30 BP 131 / 77; Pulse 96; Resp 26; Pulse Ox 97% on BiPAP; ca1 13:45 BP 134 / 80; Pulse 95; Resp 27; Pulse Ox 97% on BiPAP; ca1 14:30 BP 138 / 75; Pulse 93; Resp 23; Pulse Ox 97% on BiPAP; ca1 15:15 BP 134 / 73; Pulse 91; Resp 23; Pulse Ox 98% on BiPAP; ca1 16:06 BP 140 / 77; Pulse 90; Resp 20; Pulse Ox 97% on BiPAP; ca1 ED Course: 11:10 Patient arrived in ED. aa5 11:10 Julio Martínez MD is Attending Physician. ma2 11:10 Arm band placed on Patient placed in an exam room, on a stretcher. aa5 11:12 Triage completed. aa5 11:15 Patient has correct armband on for positive identification. Placed in gown. Bed in low ca1 position. Call light in reach. Side rails up X2. teaching associate on. Pulse ox on. NIBP on. Warm blanket given. Head of bed elevated. 11:15 EKG done, by pipe organ technician. reviewed by Julio Martínez MD. at1 11:20 Inserted saline lock: 20 gauge in right antecubital area, using aseptic technique. ca1 Blood collected. 11:20 Initial lab(s) drawn, by pa, sent to lab. First set of blood cultures drawn. ca1 11:33 Bryanna Becker, JOSSELYN is Primary Nurse. ca1 11:35 Second set of blood cultures drawn by me. ca1 11:42 X-ray completed. Portable x-ray completed in exam room. Patient tolerated procedure mh1 well. 11:43 XRAY Chest (1 view) In Process Unspecified. EDMS 12:54 Tara Cueto MD is Hospitalizing Provider. ma2 16:09 No provider procedures requiring assistance completed. ca1 17:10 Patient admitted, IV remains in place. ca1 Administered Medications: 11:27 CANCELLED (Inappropriate at this time; MD discretion): Albuterol 1.25 mg Inhalation onceiw 11:30 Drug: Xopenex 1.25 mg Route: Inhalation; ca1 11:48 Follow up: Pt took off nebulized, notified (see nurse's notes) aa5 11:30 Drug: SOLU-Medrol 125 mg Route: IVP; Site: right antecubital; ca1 13:32 Follow up: Response: No adverse reaction; No change in condition ca1 11:30 Drug: AtroVENT Aerosol 0.5 mg Route: Inhalation; ca1 11:40 Follow up: Pt took off nebulizer, notified. (see nurse's notes) aa5 11:35 Drug: Cefepime 1 grams Route: IVPB; Rate: 200 ml/hr; Infused Over: 30 mins; Site: right ca1 antecubital; 13:32 Follow up: Response: No adverse reaction; IV Status: IVP per pharmacy protocol. ca1 11:42 Drug: Zofran 4 mg Route: IVP; Site: right antecubital; aa5 11:47 Follow up: Response: No adverse reaction; Nausea is decreased aa5 12:10 Not Given (Patient Refused): Lasix 100 mg IVP once ca1 13:25 Drug: vancoMYCIN 1 grams Route: IVPB; Infused Over: 2 hrs; Site: right antecubital; ca1 13:33 Follow up: IV Status: Infusion continued upon admission ca1 16:07 Follow up: Response: No adverse reaction; IV Status: Completed infusion ca1 Intake: Outcome: 12:55 Decision to Hospitalize by Provider. ma2 17:10 Admitted to Tele accompanied by tech, family with patient, via stretcher, room 403, ca1 with oxygen, with chart, Report called to Bart Avalos RN 17:10 Condition: stable 17:10 Instructed on the need for admit, Demonstrated understanding of instructions. 17:18 Patient left the ED. Signatures: Dispatcher [employer] EDMS Laxim Muñoz 1 Jesusita Lozoya RN RN aa5 Silvia Edwards RN RN ss Rona Elizalde, food analyst EKG Tat1 Julio Martínez MD MD ma2 Bryanna Becker RN RN ca1 Argenis Lentz RN iw Corrections: (The following items were deleted from the chart) 15:48 11:15 Cardiovascular: Heart tones S1 S2 present Edema is 2+ to left midcalf, left ca1 ankle, left foot, left toes, right midcalf, right ankle, right foot and right toes Rhythm is sinus rhythm ca1
[2018-03-17] MEDS ORDERED: VANCOMYCIN 1 GM/250 ML BAG ONE (13:29)
[2018-03-17 14:15] LABS: Arterial Blood Carboxyhemoglob 1.6 % (0-1.5); Blood Gas Oxyhemoglobin 93.3 % (94-97); Blood O2 Saturation 95.4 % (92-98.5)
[2018-03-17] MEDS ORDERED: ONDANSETRON 4 MG/2 ML VIAL IV PRN (17:24)
[2018-03-17] MEDS ORDERED: ACETAMINOPHEN 500 MG TAB PO PRN (17:24)
--- NOTE | 2018-03-17 17:31 | P.HP ---
Certification for Inpatient Patient admitted to: Inpatient With expected LOS: >2 Midnights Patient will require the following post-hospital care: None Practitioner: I am a practitioner with admitting privileges, knowledge of patient current condition, hospital course, and medical plan of care. Services: Services provided to patient in accordance with Admission requirements found in Title 42 Section 412.3 of the Code of Federal Regulations Patient History Date of Service: 03/18/18 History of Present Illness: 88-year-old female with significant past medical history who is a frequent Flyer to the hospital who presented to the hospital for shortness of breath. Shortness of breath started 2 days ago and has got progressively worse. Patient was supposed to get his dialysis today however was not able to get dialysis due to shortness of breath and she presented to the hospital for it. Patient has had previous admission for similar symptoms and was admitted to the hospital for acute respiratory failure and had intubation done and was admitted to the ICU at that time. Patient did have marked improvement and was discharged home under stable condition. Patient does have a history of noncompliance with diet along with medications as well. Patient was placed on BiPAP in the ER. Was unable to provide more history due to being in acute respiratory distress Allergies acetylcysteine [From Mucomyst] Allergy (Mild, Verified 12/14/17 13:50) Shortness of breath Iodinated Contrast- Oral and IV Dye Allergy (Verified 12/14/17 13:50) Itching/Hives/Rash ciprofloxacin Adverse Reaction (Mild, Verified 12/14/17 13:50) muscle spasm Penicillins Adverse Reaction (Mild, Verified 12/14/17 13:50) Itching Home Medications: Carvedilol 25 mg PO BID 09/06/17 Clopidogrel Bisulfate [Plavix*] 75 mg PO DAILY 09/06/17 Pravastatin Sodium [Pravachol] 80 mg PO BEDTIME 11/12/17 Ascorbic Acid [Vitamin C] 250 mg PO DAILY 03/18/18 Aspirin [Aspir-Low] 81 mg PO BEDTIME 03/18/18 Multivit-Min/Iron/Folic/Lutein [Centrum Silver Women Tablet] 1 each PO DAILY Umeclidinium Brm/Vilanterol Tr [Anoro Ellipta 62.5-25 Mcg INH] 1 each IH DAILY 03/18/18 - Past Medical/Surgical History Diabetic: No -: COPD, Oxygen dependent -: HTN -: Atrial fibrillation, Pacemaker -: GERD -: Chronic anemia -: CAD -: PVD -: Carotid arterial disease -: Hyperlipidemia -: CHF, diastolic dysfunction, moderate pulmonary hypertension -: Permanent Pacemaker to upper rt chest-Sep [address] Narvaez -: Cornary stents -: kidney stents and stents to ea leg -: Bilateral lens implants -: Bilateral carpal tunnel repair -: Hysterectomy -: Appendectomy -: Tonsillectomy Psychosocial/ Personal History: She is . Patient gets home dialysis - Family History Mother -: Heart disease, Diabetes Notes: of [place] Sister -: Diabetes - Social History Alcohol use: No CD- Drugs: No Caffeine use: No Review of Systems 10-point ROS is otherwise unremarkable Physical Examination - Physical Exam General: Alert, In no apparent distress HEENT: Atraumatic, PERRLA, Mucous membr. moist/pink, EOMI, Sclerae nonicteric Neck: Supple, 2+ carotid pulse no bruit, No LAD, Without JVD or thyroid abnormality Respiratory: Clear to auscultation bilaterally, Normal air movement Cardiovascular: Regular rate/rhythm, Normal S1 S2 Gastrointestinal: Normal bowel sounds, No tenderness Musculoskeletal: No tenderness Integumentary: No rashes Neurological: Normal gait, Normal speech, Normal strength at 5/5 x4 extr, Normal tone, Normal affect Lymphatics: No axilla or inguinal lymphadenopathy - Studies Laboratory Data (last 24 hrs) 03/17/18 11:20: APTT 28.4 03/17/18 11:20: Lipase 206 03/17/18 11:20: PT 14.0 H, INR 1.18 03/17/18 11:20: WBC 7.0, Hgb 10.7 L, Hct 32.9 L, Plt Count 253 03/17/18 11:20: Sodium 130 L, Potassium 4.7, BUN 51 H, Creatinine 4.07 H, Glucose 162 H, Magnesium 2.1, Total Bilirubin 0.4, AST 34, ALT 35, Alkaline Phosphatase 123 H Assessment and Plan - Problems (Diagnosis) (1) Hypercapnic respiratory failure Current Visit: Yes Status: Acute Qualifiers: Chronicity: acute on chronic Qualified Code(s): J96.22 - Acute and chronic respiratory failure with hypercapnia (2) Acute on chronic diastolic CHF (congestive heart failure) Onset Date: 04/24/17 Current Visit: No Status: Acute (3) COPD exacerbation Onset Date: 10/18/17 Current Visit: No Status: Acute (4) Atrial fibrillation Onset Date: 03/26/16 Current Visit: No Status: Chronic Qualifiers: Atrial fibrillation type: chronic Qualified Code(s): I48.2 - Chronic atrial fibrillation (5) CAD (coronary artery disease) Onset Date: 10/04/14 Current Visit: No Status: Chronic Qualifiers: Coronary Disease-Associated Artery/Lesion type: [place] artery [place] vs. transplanted heart: [place] heart Associated angina: without angina Qualified Code(s): I25.10 - Atherosclerotic heart disease of [place] coronary artery without angina pectoris (6) ESRD (end stage renal disease) on dialysis Onset Date: 12/16/17 Current Visit: No Status: Chronic (7) Gastroesophageal reflux disease Onset Date: 10/04/14 Current Visit: No Status: Chronic (8) Hyperlipidemia Onset Date: 04/24/17 Current Visit: No Status: Chronic Qualifiers: Hyperlipidemia type: unspecified Qualified Code(s): E78.5 - Hyperlipidemia , unspecified (9) Hypertension Onset Date: 10/04/14 Current Visit: No Status: Chronic Qualifiers: Hypertension type: essential hypertension Qualified Code(s): I10 - Essential (primary) hypertension (10) Status post placement of cardiac pacemaker Onset Date: 10/18/17 Current Visit: No Status: Chronic Discharge Plan: Home Plan to discharge in: 48 Hours - Advance Directives Does patient have a Living Will: No Does patient have a Durable POA for Healthcare: No - Code Status/Comfort Care Code Status Assessed: Yes Critical Care: No
[2018-03-17 17:59] VITALS: BMI 24.2
[2018-03-17] MEDS ORDERED: NA CHLORIDE 0.9% 1,000 ML IV PRN (19:13)
[2018-03-17] MEDS ORDERED: ALBUMIN HUMAN 25% 50 ML IV SCH (20:00)
--- NOTE | 2018-03-17 20:50 | EKG ---
Test Date: 2018-03-17 Test Time: 11:08:23 Cryogenics Repairer: EPIFANIO MEASUREMENT RESULTS: Intervals: Rate: 106 NE: 176 QRSD: 128 QT: 344 QTc: 456 Idanha: P: 70 NE: 176 QRS: -4 T: 205 INTERPRETIVE STATEMENTS: Sinus tachycardia Nonspecific intraventricular block Cannot rule out Anterior infarct, age undetermined T wave abnormality, consider inferolateral ischemia Abnormal ECG Compared to ECG 02/18/2018 12:23:01 Myocardial infarct finding now present Atrial fibrillation no longer present Ventricular premature complex(es) no longer present Left-axis deviation no longer present T-wave abnormality still present Possible ischemia still present Electronically Signed On 03-17-18 20:48:00 BELT CLEANER by Andrea Rao
[2018-03-17] MEDS: WATER FOR INJ,STERILE 10 ML IV ONE ×2 (21:14→23:28)
[2018-03-17] MEDS: ALTEPLASE 2 MG/VIAL IJ ONE ×2 (21:14→23:26)
[2018-03-17] MEDS ORDERED: ALTEPLASE 2 MG/VIAL IV ONE (22:02)
[2018-03-17] MEDS ORDERED: WATER FOR INJ,STERILE 20 ML ONE (22:07)
--- NOTE | 2018-03-18 04:07 | CON ---
Date of Consultation: 03/17/2018 Chief Complaint: End-stage renal disease, on dialysis. History Of Present Illness: The patient has multiple medical problems including history of congestiv e heart failure and respiratory failure. The patient presented to the hospital because of generalize d weakness and shortness of breath. She was found to have wheezing and hypoxemia, was started on jose roberto al cannula. The patient is oxygen dependent and receives 2 L of nasal cannula at home. The patient previously was admitted for pneumonia and respiratory failure, requiring intubation, and was admitted to ICU. The patient cannot provide review of systems. She is in mild respiratory distress. Nephro logy consultation is obtained to provide stat dialysis. The patient had fluid overload. She was fou nd to have interstitial pulmonary edema, and stat dialysis will be done as soon as possible. The pat steffi is complaining of generalized weakness and has nonproductive cough. She has history of chronic obstructive pulmonary disease. She is oxygen dependent. She has history of pulmonary hypertension o f moderate degree, congestive heart failure with diastolic dysfunction, previous history of atrial fi brillation, pacemaker placement, coronary artery disease, hypertension, and hyperlipidemia. She was complaining of progressively worse shortness of breath over last 2 days associated with nonproductive cough. She denied fever or chills. She received dialysis last week; and today, she was to have nehal lysis, although she became progressively worse, and she was coughing, and she had shortness of breath . Review of Systems: Unobtainable. The patient follows commands, although she is in respiratory distress. Past Medical History: COPD, oxygen dependent; hypertension; atrial fibrillation; pacemaker placement ; GERD; chronic anemia; coronary artery disease; peripheral vascular disease; carotid artery disease; hyperlipidemia; congestive heart failure; diastolic dysfunction; moderate pulmonary hypertension. Past Surgical History: Permanent pacemaker placement, upper chest; coronary stent; kidney stent; alvina nt to both legs; bilateral lens implants; hysterectomy; and appendectomy. Family History: Heart disease and sister with diabetes. Social History: Former smoker. Denies alcohol or illicit drugs. Physical Examination: General: The patient is in moderately severe respiratory distress. She is awake and alert. Eyes: Anicteric sclerae. EOMI. Ears, Nose, Mouth, and Throat: Oral mucosa is moist. No pallor. Neck: Supple. No JVD. No bruits. Lungs: Bilateral crackles. Few wheezes. Heart: S1, S2. No pericardial friction rub. Abdomen: Soft, benign, nontender. Extremities: Edema is present. No clubbing. No cyanosis. Neurological: Moving extremities. Cranial nerves are intact. Psychiatric: Alert, although lethargic. Follows commands. Skin: Warm and dry. No cellulitis. Laboratory Work: Hemoglobin 10.7, WBC 7.0, and platelet count is 253,000. Sodium 130, potassium 4.7 , chloride 95, CO2 of 27, BUN 51, creatinine 4.07, calcium 9.0, and magnesium 2.1. Troponin 0.14. A lkaline phosphatase 123, AST 34, and ALT 35. Impression And Plan: 1.End-stage renal disease, on dialysis. The patient has fluid overload and congestive heart failure , decompensated due to fluid overload. The patient has complicated history with pulmonary hypertensi on, chronic respiratory failure on oxygen with chronic obstructive pulmonary disease. The patient wi ll start antibiotics for possible pneumonia. 2.Renal osteodystrophy. Monitor phosphorus level. Adjust binders as needed. 3.Anemia. Hemoglobin level os satisfactory. Continue ROMELIA. 4.Fluid overload. Continue low-sodium diet, p.o. fluid restriction. Ultrafiltration will be done t alec to obtain negative fluid balance to control congestive heart failure with diastolic dysfunction. 5.The patient has history of intradialytic hypotension. Monitor blood pressure. Adjust ultrafiltra tion goal accordingly. STEPHON/ADITI Voice ID: [id number] Report ID: [id number]
[2018-03-18 04:17] LABS: Absolute Lymphocytes (CBC) 0.3 K/uL (0.7-4.9); Absolute Monocytes 0.2 K/uL (0.1-1.3); Absolute Neutrophil 2.8 K/uL (1.8-8.0); Hematocrit 26.8 % (36.0-45.0); Monocytes % 4.8 % (3.3-12.3); RBC Red Blood Cell Count 3.08 M/uL (3.86-4.86)
[2018-03-18 04:34] LABS: Albumin 2.4 g/dL (3.4-5.0); Bilirubin Total 0.3 mg/dL (0.2-1.0); Protein, Total 5.1 g/dL (6.4-8.2)
[2018-03-18 06:15] LABS: Blood Morphology Comment NOTED (NOT SEEN); Platelet Estimate ADEQ; Polychromasia SLIGHT
--- NOTE | 2018-03-18 14:42 | RAD REPORT ---
EXAM DESCRIPTION: RAD - Chest Single View - 03/18/2018 2:20 pm CLINICAL HISTORY: COPD, shortness of breath COMPARISON: March 17 TECHNIQUE: AP portable chest image was obtained 1415 hour . FINDINGS: Set bilateral pleural effusions remain. Lung base atelectasis still present. Patient has c hronic interstitial lung disease. Mild cardiomegaly is present with mild vascular engorgement. Dialys is catheter and pacemaker remain in place. Trachea is midline. No pneumothorax. IMPRESSION: Bilateral pleural effusions and lung base atelectasis similar to comparison. Chest is not substantially different from prior day study.
[2018-03-18] MEDS ORDERED: NA CHLORIDE 0.9% 1,000 ML IV PRN (15:04)
--- NOTE | 2018-03-18 16:41 | P.PN ---
Subjective Date of Service: 03/18/18 Patient seen and examined at bedside with RN. Chart reviewed. Patient currently is very angry at this situation does not 1 of the talk to and states that she would like to see another doctor. Review of Systems 10-point ROS is otherwise unremarkable Physical Examination - Vital Signs Temperature: 97.9 F Blood Pressure: 105/59 Pulse: 88 Respirations: 24 Pulse Ox (%): 99 - Physical Exam General: Alert, Moderate distress HEENT: Atraumatic, PERRLA, EOMI Neck: Supple, JVD not distended Respiratory: Normal air movement, Crackles/rales, Expiratory wheezes Cardiovascular: Regular rate/rhythm, Normal S1 S2 Gastrointestinal: Normal bowel sounds, No tenderness Musculoskeletal: No tenderness Integumentary: No rashes Neurological: Normal speech, Normal tone, Normal affect Lymphatics: No axilla or inguinal lymphadenopathy - Studies Medications List Reviewed: Yes Assessment And Plan - Current Problems (Diagnosis) (1) Hypercapnic respiratory failure Current Visit: Yes Status: Acute Plan: Chronic hypercapnic respiratory failure most likely secondary to COPD exacerbation -currently off of BiPAP on nasal cannula. Does have home oxygenation -continue to monitor closely -will transfer care to Dr. Wiggins Qualifiers: Chronicity: acute on chronic Qualified Code(s): J96.22 - Acute and chronic respiratory failure with hypercapnia (2) Acute on chronic diastolic CHF (congestive heart failure) Onset Date: 04/24/17 Current Visit: No Status: Acute Plan: Acute on chronic diastolic heart failure most likely secondary to medication noncompliance versus dialysis noncompliance -nephrology consulted will be getting hemodialysis today for volume overload. (3) COPD exacerbation Onset Date: 10/18/17 Current Visit: No Status: Acute Plan: Currently on duo nebs, oxygen and steroids (4) Atrial fibrillation Onset Date: 03/26/16 Current Visit: No Status: Chronic Qualifiers: Atrial fibrillation type: chronic Qualified Code(s): I48.2 - Chronic atrial fibrillation (5) CAD (coronary artery disease) Onset Date: 10/04/14 Current Visit: No Status: Chronic Qualifiers: Coronary Disease-Associated Artery/Lesion type: [place] artery [place] vs. transplanted heart: [place] heart Associated angina: without angina Qualified Code(s): I25.10 - Atherosclerotic heart disease of [place] coronary artery without angina pectoris (6) ESRD (end stage renal disease) on dialysis Onset Date: 12/16/17 Current Visit: No Status: Chronic (7) Gastroesophageal reflux disease Onset Date: 10/04/14 Current Visit: No Status: Chronic (8) Hyperlipidemia Onset Date: 04/24/17 Current Visit: No Status: Chronic Qualifiers: Hyperlipidemia type: unspecified Qualified Code(s): E78.5 - Hyperlipidemia , unspecified (9) Hypertension Onset Date: 10/04/14 Current Visit: No Status: Chronic Qualifiers: Hypertension type: essential hypertension Qualified Code(s): I10 - Essential (primary) hypertension (10) Status post placement of cardiac pacemaker Onset Date: 10/18/17 Current Visit: No Status: Chronic - Plan Will transfer care to Dr. Wiggins as patient refused to be seen by me. Will continue current management will get a sign out to Dr. Wiggins regarding Plan of care Discharge Plan: Home Plan to discharge in: 48 Hours - Code Status/Comfort Care Code Status Assessed: Yes Critical Care: No
[2018-03-18] MEDS: EPOETIN ALFA 10,000 UNIT/ML VIAL IV SCH (16:45)
--- NOTE | 2018-03-19 02:29 | PN ---
Date of Progress Note: 03/18/2018 Subjective: The patient was admitted with over-volume, shortness of breath. The patient received dialysis today. The patient still has shortness of breath. Physical Examination: Vital Signs: When I saw the patient, blood pressure 105/59, pulse of 88. Chest: Crackles, bilateral bases. Heart: S1 and S2. Systolic murmur. Abdomen: Soft, nontender. Extremities: Trace edema. Laboratory Data: WBC 3.2, H and H 8.4/26.8. Sodium 135, potassium 5, bicarb 27 , BUN 38, and creatinine 3. Medications: Medication has been reviewed. Assessment And Plan: 1. End-stage renal disease, over-volume. We will do sequential dialysis today and plan for another session tomorrow. 2. Hypertension. We will utilize blood pressure for more ultrafiltration. 3. Shock , over volume cardiogenic and chronic obstructive pulmonary disease. We will do sequential today. We will repeat chest x-ray and continue treatment for chronic obstructive pulmonary disease. We will follow up with the primary. SID Voice ID: [id number] Report ID: [id number] KARLEE
[2018-03-19 04:16] LABS: Absolute Lymphocytes (CBC) 0.9 K/uL (0.7-4.9); Absolute Monocytes 0.6 K/uL (0.1-1.3); Basophils % 0.4 % (0-1.3); Eosinophils % 1.1 % (0-4.4); Hematocrit 28.2 % (36.0-45.0); Lymphocytes % 16.3 % (15.3-44.8); MPV 8.8 fL (7.6-11.3); Monocytes % 10.5 % (3.3-12.3); RBC Red Blood Cell Count 3.26 M/uL (3.86-4.86)
[2018-03-19 04:36] LABS: Albumin 2.6 g/dL (3.4-5.0); Bilirubin Total 0.3 mg/dL (0.2-1.0); Protein, Total 5.1 g/dL (6.4-8.2)
--- NOTE | 2018-03-19 08:23 | RAD REPORT ---
EXAM DESCRIPTION: RAD - Chest Single View - 03/18/2018 8:44 pm CLINICAL HISTORY: CHF, end-stage renal disease COMPARISON: March 18, March 17 TECHNIQUE: AP portable chest image was obtained 2041 hour . FINDINGS: Lung volumes are similar to comparison. Right greater than left bilateral pleural effusion s and lung base atelectasis but not changed. Heart size is prominent and stable. Central vasculature has not changed. Dialysis catheter and pacemaker remain in place. No pneumothorax. IMPRESSION: Right greater than left pleural effusions and atelectasis have not changed. Mild cardiom egaly is stable.
[2018-03-19] MEDS: LEVALBUTEROL 1.25 MG/3 ML NEB NEB SCH ×2 (11:00→15:30)
[2018-03-19] MEDS: predniSONE 20 MG TAB PO SCH (12:03)
--- NOTE | 2018-03-19 16:06 | P.PN ---
Subjective Date of Service: 03/19/18 Subjective: No C/O voiced, Improving Patient seen and examined at bedside. No family at bedside. Chart reviewed and case discussed with nursing staff. Reports improved breathing No complaints this morning Review of Systems 10-point ROS is otherwise unremarkable Physical Examination - Vital Signs Temperature: 98.4 F Blood Pressure: 111/62 Pulse: 89 Respirations: 20 Pulse Ox (%): 97 - Physical Exam General: Alert, In no apparent distress, Oriented x3 HEENT: Atraumatic, PERRLA, EOMI Neck: Supple, JVD not distended Respiratory: Clear to auscultation bilaterally, Normal air movement Cardiovascular: Regular rate/rhythm, Normal S1 S2 Gastrointestinal: Normal bowel sounds, No tenderness Musculoskeletal: No tenderness Integumentary: No rashes Neurological: Normal speech, Normal tone, Normal affect Lymphatics: No axilla or inguinal lymphadenopathy - Studies Medications List Reviewed: Yes Assessment And Plan - Current Problems (Diagnosis) (1) Hypercapnic respiratory failure Current Visit: Yes Status: Acute Qualifiers: Chronicity: acute on chronic Qualified Code(s): J96.22 - Acute and chronic respiratory failure with hypercapnia (2) Acute on chronic diastolic CHF (congestive heart failure) Onset Date: 04/24/17 Current Visit: No Status: Acute (3) COPD exacerbation Onset Date: 10/18/17 Current Visit: No Status: Acute (4) Atrial fibrillation Onset Date: 03/26/16 Current Visit: No Status: Chronic Qualifiers: Atrial fibrillation type: chronic Qualified Code(s): I48.2 - Chronic atrial fibrillation (5) CAD (coronary artery disease) Onset Date: 10/04/14 Current Visit: No Status: Chronic Qualifiers: Coronary Disease-Associated Artery/Lesion type: [place] artery [place] vs. transplanted heart: [place] heart Associated angina: without angina Qualified Code(s): I25.10 - Atherosclerotic heart disease of [place] coronary artery without angina pectoris (6) ESRD (end stage renal disease) on dialysis Onset Date: 12/16/17 Current Visit: No Status: Chronic (7) GERD (gastroesophageal reflux disease) Onset Date: 06/24/17 Current Visit: No Status: Chronic Qualifiers: Esophagitis presence: without esophagitis Qualified Code(s): K21.9 - Gastro -esophageal reflux disease without esophagitis (8) Hypertension Onset Date: 10/04/14 Current Visit: No Status: Chronic Qualifiers: Hypertension type: essential hypertension Qualified Code(s): I10 - Essential (primary) hypertension - Plan (1) Hypercapnic respiratory failure Improving Chronic hypercapnic respiratory failure most likely secondary to COPD exacerbation -currently off of BiPAP on nasal cannula. Does have home oxygenation -continue to monitor closely (2) Acute on chronic diastolic CHF (congestive heart failure) Acute on chronic diastolic heart failure most likely secondary to medication noncompliance versus dialysis noncompliance Nephrology consulted, recommendations appreciated She is status post serial dialysis, drastic improvement in breathing (3) COPD exacerbation Continue duo nebs, oxygen and steroids (4) Atrial fibrillation Chronic atrial fibrillation (5) CAD (coronary artery disease) Atherosclerotic heart disease of [place] coronary artery without angina pectoris (6) ESRD (end stage renal disease) on dialysis (7) Gastroesophageal reflux disease (8) Hyperlipidemia (9) Hypertension Essential hypertension, stable. Continue home medications (10) Status post placement of cardiac pacemaker DVT prophylaxis: Lovenox GI prophylaxis: None Diet: Renal Disposition: Pending symptomatic improvement. Likely discharge home with home dialysis (as patient was doing previously) in the next 24-48 hr. Patient not interested in going to a facility or hemodialysis at this time Discharge Plan: Home Time Spent Managing PTS Care (In Minutes): 35
--- NOTE | 2018-03-19 16:53 | PN ---
Date of Progress Note: 03/19/2018 Subjective: The patient was admitted with shortness of breath, CHF exacerbation, over volume. Physical Examination: Vital Signs: Blood pressure 111/62, pulse of 89, afebrile. Chest: Clear to auscultation. Heart: S1, S2 systolic murmur. Abdomen: Soft, nontender. Extremities: No edema. The patient had dialysis yesterday. We managed to remove 1800. Current Medications: The patient on include: 1.Albuterol. 2.Epogen. 3.Heparin. 4.Atrovent. Assessment And Plan: 1.End-stage renal disease, over volume, currently normal volume. We are going to back the patient t o her schedule as Saturday, Saturday, Saturday. We will challenge the patient today. 2.Respiratory failure secondary to over volume. The patient is going to be dialyzed today, dialyzed yesterday as sequential. We will adjust her dry weight. 3.Chronic obstructive pulmonary disease exacerbation. I am going to start the patient on Combivent and prednisone. 4.Deconditioning. Continue PT/OT. I discussed with the patient for availability for rehab, but the patient refused. We will follow up with PT/OT. SID Voice ID: [id number] Report ID: [id number]
[2018-03-19] MEDS: EPOETIN ALFA 10,000 UNIT/ML VIAL IV SCH (22:22)
[2018-03-20] MEDS: LEVALBUTEROL 1.25 MG/3 ML NEB NEB SCH ×2 (00:10→07:45)
[2018-03-20 03:05] VITALS: O2SAT 99
[2018-03-20 04:44] LABS: Absolute Lymphocytes (CBC) 0.3 K/uL (0.7-4.9); Absolute Monocytes 0.4 K/uL (0.1-1.3); Absolute Neutrophil 4.8 K/uL (1.8-8.0); Basophils % 0.1 % (0-1.3); Hematocrit 28.8 % (36.0-45.0); Lymphocytes % 5.8 % (15.3-44.8); MPV 9.1 fL (7.6-11.3); Monocytes % 7.9 % (3.3-12.3); RBC Red Blood Cell Count 3.34 M/uL (3.86-4.86)
[2018-03-20 04:58] LABS: Albumin 2.6 g/dL (3.4-5.0); Bilirubin Total 0.3 mg/dL (0.2-1.0); Potassium 4.3 mmol/L (3.5-5.1); Protein, Total 5.3 g/dL (6.4-8.2)
[2018-03-20] MEDS: predniSONE 20 MG TAB PO SCH (08:33)
--- NOTE | 2018-03-20 14:18 | P.PN ---
Subjective Date of Service: 03/20/18 Subjective: Improving End-stage renal disease, Had HD yesterday looks euvolemic today cleared for discharge from nephrology point Anemia Stable HTN controlled refused rehab Physical Examination - Vital Signs Temperature: 98.3 F Blood Pressure: 126/71 Pulse: 111 Respirations: 18 Pulse Ox (%): 96 - Studies Medications List Reviewed: Yes
[2018-03-20 16:36] VITALS: BP 119/66; TEMP 98
--- NOTE | 2018-03-27 10:00 | P.DS ---
Admission Date: 03/17/18 Discharge Date: 03/20/18 Disposition: DC HOME/HOME HEALTH CARE Discharge Condition: GOOD Consultations: Nephrology - Problems (1) Hypercapnic respiratory failure Status: Acute Qualifiers: Chronicity: acute on chronic Qualified Code(s): J96.22 - Acute and chronic respiratory failure with hypercapnia (2) Acute on chronic diastolic CHF (congestive heart failure) Onset Date: 04/24/17 Status: Acute (3) COPD exacerbation Onset Date: 10/18/17 Status: Acute (4) Atrial fibrillation Onset Date: 03/26/16 Status: Chronic Qualifiers: Atrial fibrillation type: chronic Qualified Code(s): I48.2 - Chronic atrial fibrillation (5) CAD (coronary artery disease) Onset Date: 10/04/14 Status: Chronic Qualifiers: Coronary Disease-Associated Artery/Lesion type: [place] artery [place] vs. transplanted heart: [place] heart Associated angina: without angina Qualified Code(s): I25.10 - Atherosclerotic heart disease of [place] coronary artery without angina pectoris (6) ESRD (end stage renal disease) on dialysis Onset Date: 12/16/17 Status: Chronic (7) GERD (gastroesophageal reflux disease) Onset Date: 06/24/17 Status: Chronic Qualifiers: Esophagitis presence: without esophagitis Qualified Code(s): K21.9 - Gastro -esophageal reflux disease without esophagitis (8) Hypertension Onset Date: 10/04/14 Status: Chronic Qualifiers: Hypertension type: essential hypertension Qualified Code(s): I10 - Essential (primary) hypertension Brief History of Present Illness: 88-year-old female with significant past medical history who is a frequent Flyer to the hospital who presented to the hospital for shortness of breath. Shortness of breath started 2 days ago and has got progressively worse. Patient was supposed to get his dialysis today however was not able to get dialysis due to shortness of breath and she presented to the hospital for it. Patient has had previous admission for similar symptoms and was admitted to the hospital for acute respiratory failure and had intubation done and was admitted to the ICU at that time. Patient did have marked improvement and was discharged home under stable condition. Patient does have a history of noncompliance with diet along with medications as well. Patient was placed on BiPAP in the ER. Was unable to provide more history due to being in acute respiratory distress Hospital Course: (1) Hypercapnic respiratory failure She was started on bi-pap and eventually weaned off to her home oxygen level via nasal canula. Chronic hypercapnic respiratory failure most likely secondary to COPD exacerbation (2) Acute on chronic diastolic CHF (congestive heart failure) Acute on chronic diastolic heart failure most likely secondary to medication noncompliance versus dialysis noncompliance Nephrology consulted and she was dialysed x 2 here in the hospital which improved her symptoms. Upon discharge, patient would like to continue staying with her son (refused facility) and continue her home dialysis. (3) COPD exacerbation She was continued on duo nebs, oxygen and steroids (4) Atrial fibrillation Chronic atrial fibrillation, remained stable. (5) CAD (coronary artery disease) Atherosclerotic heart disease of [place] coronary artery without angina pectoris Remained stable. (6) ESRD (end stage renal disease) on dialysis She worked well with physical therapy. She refuses placement in a facility and will return home with her son. She will continue home dialysis. Medication compliance extensively discussed. Vital Signs/Physical Exam: Temp Pulse Resp BP Pulse Ox 98 F 115 H 18 119/66 96 03/20/18 16:00 03/20/18 16:00 03/20/18 16:00 03/20/18 16:00 03/20/18 16:00 General: Alert, In no apparent distress, Oriented x3 HEENT: Atraumatic, PERRLA, EOMI Neck: Supple, JVD not distended Respiratory: Clear to auscultation bilaterally, Normal air movement Cardiovascular: Regular rate/rhythm, Normal S1 S2 Gastrointestinal: Normal bowel sounds, No tenderness Musculoskeletal: No tenderness Integumentary: No rashes Neurological: Normal speech, Normal tone, Normal affect Lymphatics: No axilla or inguinal lymphadenopathy Laboratory Data at Discharge: WBC 5.6 K/uL (4.3-10.9) 03/20/18 03:33 Hgb 9.1 g/dL (12.0-15.0) L 03/20/18 03:33 Hct 28.8 % (36.0-45.0) L 03/20/18 03:33 Plt Count 214 K/uL (152-406) 03/20/18 03:33 PT 14.0 SECONDS (9.5-12.5) H 03/17/18 11:20 INR 1.18 03/17/18 11:20 APTT 28.4 SECONDS (24.3-36.9) 03/17/18 11:20 Sodium 135 mmol/L (136-145) L 03/20/18 03:33 Potassium 4.3 mmol/L (3.5-5.1) 03/20/18 03:33 BUN 30 mg/dL (7-18) H 03/20/18 03:33 Creatinine 2.55 mg/dL (0.55-1.3) H D 03/20/18 03:33 Glucose 206 mg/dL (74-106) H 03/20/18 03:33 Magnesium 2.1 mg/dL (1.8-2.4) 03/17/18 11:20 Total Bilirubin 0.3 mg/dL (0.2-1.0) 03/20/18 03:33 AST 13 U/L (15-37) L 03/20/18 03:33 ALT 26 U/L (12-78) 03/20/18 03:33 Alkaline Phosphatase 92 U/L (45-117) 03/20/18 03:33 Lipase 206 U/L (73-393) 03/17/18 11:20 Home Medications: Carvedilol 25 mg PO BID 09/06/17 Clopidogrel Bisulfate [Plavix*] 75 mg PO DAILY 09/06/17 Pravastatin Sodium [Pravachol] 80 mg PO BEDTIME 11/12/17 Ascorbic Acid [Vitamin C] 250 mg PO DAILY 03/18/18 Aspirin [Aspir-Low] 81 mg PO BEDTIME 03/18/18 Multivit-Min/Iron/Folic/Lutein [Centrum Silver Women Tablet] 1 each PO DAILY Umeclidinium Brm/Vilanterol Tr [Anoro Ellipta 62.5-25 Mcg INH] 1 each IH DAILY 03/18/18 Patient Discharge Instructions: Please follow up with your primary care physician 1 week. Please return to the ER for worsening symptoms. Diet: Renal Activity: Ad jessiac Followup: Burak Sheldon MD [ACTIVE - CAN ADMIT] - () Time spent managing pt's care (in minutes): 55
== END 2018-03-20 16:17 | disposition home health service (06) | DRG 291 ==
LOC: ER 11:09 → ERHOLD 14:17 → 4TH 16:40
PROVIDERS: ADMIT Family Medicine; ATTEND Family Medicine
PROC: 5A1D70Z Performance of Urinary Filtration, Intermittent, Less than 6 Hours Per Day (ICD-10-PCS; principal; 2018-03-17)
PROC: 5A09457 Assistance with Respiratory Ventilation, 24-96 Consecutive Hours, Continuous Positive Airway Pressure (ICD-10-PCS; 2018-03-17)
PROC: 5A1D70Z Performance of Urinary Filtration, Intermittent, Less than 6 Hours Per Day (ICD-10-PCS; 2018-03-18)
PROC: 5A1D70Z Performance of Urinary Filtration, Intermittent, Less than 6 Hours Per Day (ICD-10-PCS; 2018-03-19)
DX: I13.2 Hypertensive heart and chronic kidney disease with heart failure and with stage 5 chronic kidney disease, or end stage renal disease (principal); J96.22 Acute and chronic respiratory failure with hypercapnia; I50.33 Acute on chronic diastolic (congestive) heart failure; N18.6 End stage renal disease; R57.0 Cardiogenic shock; J44.1 Chronic obstructive pulmonary disease with (acute) exacerbation; J81.1 Chronic pulmonary edema; Z99.81 Dependence on supplemental oxygen; I48.2 Chronic atrial fibrillation; Z79.01 Long term (current) use of anticoagulants; Z95.0 Presence of cardiac pacemaker; K21.9 Gastro-esophageal reflux disease without esophagitis; I25.10 Atherosclerotic heart disease of native coronary artery without angina pectoris; Z95.5 Presence of coronary angioplasty implant and graft; I73.9 Peripheral vascular disease, unspecified; E78.5 Hyperlipidemia, unspecified; Z99.2 Dependence on renal dialysis; I27.20 Pulmonary hypertension, unspecified; Z87.891 Personal history of nicotine dependence; N25.0 Renal osteodystrophy; E87.79 Other fluid overload; I95.3 Hypotension of hemodialysis; Z91.14 Patient's other noncompliance with medication regimen; Z91.15 Patient's noncompliance with renal dialysis; D64.9 Anemia, unspecified
CPT/HCPCS: 36415; 71045; 80048; 80053; 80076; 82550; 82553; 82805; 83690; 83735; 83880; 84484; 85025; 85379; 85610; 85730; 86705; 86706; 87040; 90935; 93005; 94640; 94660; 94760; 96365; 96366; 96375; 97116; 97162; 97530; 99285; J0692; J1644; J2405; J2930; J2997; J3370; J7512; Q4081

== ENCOUNTER 2018-04-04 14:58 | Emergency (ER) | payer OTHER ==
[2011-07-15 16:28] VITALS: BP 145/71
[2018-04-04 15:57] LABS: Absolute Lymphocytes (CBC) 0.7 K/uL (0.7-4.9); Absolute Monocytes 0.3 K/uL (0.1-1.3); Absolute Neutrophil 4.8 K/uL (1.8-8.0); Basophils % 0.8 % (0-1.3); Eosinophils % 0.6 % (0-4.4); Monocytes % 5.8 % (3.3-12.3); RBC Red Blood Cell Count 1.87 M/uL (3.86-4.86)
[2018-04-04 16:02] LABS: Protime INR 3.14
[2018-04-04 16:10] LABS: Hematocrit 16.5 % (36.0-45.0)
[2018-04-04 16:17] LABS: Bilirubin Direct 0.1 mg/dL (0-0.2); Bilirubin Total 0.3 mg/dL (0.2-1.0); Potassium 4.1 mmol/L (3.5-5.1)
[2018-04-04 16:18] LABS: Albumin 2.4 g/dL (3.4-5.0); Protein, Total 4.9 g/dL (6.4-8.2); Troponin (Emerg Dept Use Only) 0.08 ng/mL (0.0-0.045)
--- NOTE | 2018-04-04 16:19 | EKG ---
Test Date: 2018-04-04 Test Time: 15:12:26 Bread Wrapping Machine Feeder: RENUKA MEASUREMENT RESULTS: Intervals: Rate: 67 WA: QRSD: 130 QT: 434 QTc: 458 [place]: P: [place]: QRS: 31 T: 252 INTERPRETIVE STATEMENTS: Atrial fibrillation Nonspecific intraventricular block T wave abnormality, consider inferolateral ischemia or digitalis effect Abnormal ECG Compared to ECG 03/17/2018 11:08:23 Sinus tachycardia no longer present Myocardial infarct finding no longer present T-wave abnormality still present Possible ischemia still present Electronically Signed On 04-04-18 16:18:09 MILKING WORKER by Andrea Rao
--- NOTE | 2018-04-04 16:30 | ER ---
Nurse's Notes [facility] Name: Bárbara Thakkar Age: 88 yrs Sex: Female : 1930 Arrival Date: 04/04/2018 Time: 14:54 Bed 3 Private MD: Diagnosis: Dyspnea;End stage renal disease;Gastrointestinal hemorrhage, unspecified-upper;Weakness Presentation: 04/04 14:54 Presenting complaint: EMS states: SOB after an hour of hemodialysis at home. EMS aa5 reports pt was found lying supine and O2 sat was 98% RA but pt appeared SOB. Pt reports feeling better and currently denies SOB. 14:54 Transition of care: patient was not received from another setting of care. Onset of aa5 symptoms was April 04, 2018. Risk Assessment: Do you want to hurt yourself or someone else? Patient reports no desire to harm self or others. Care prior to arrival: Oxygen administered. via CPAP or BiPAP. 14:54 Method Of Arrival: EMS: [facility] aa5 14:54 Acuity: CECE 2 aa5 19:48 Initial Sepsis Screen: Does the patient meet any 2 criteria? No. Patient's initial jd3 sepsis screen is negative. Does the patient have a suspected source of infection? No. Patient's initial sepsis screen is negative. Triage Assessment: 19:48 Respiratory: Reports shortness of breath at rest Onset: The symptoms/episode jd3 began/occurred today, the patient has moderate shortness of breath. Historical: - Allergies: 14:54 acetylcysteine; aa5 14:54 Ciprofloxacin; aa5 14:54 Iodinated Contrast Media - IV Dye; aa5 14:54 PENICILLINS; aa5 - PMHx: 14:54 COPD; ESRD; Hemodialysis-MWF; High Cholesterol; Hypertension; Pacemaker; aa5 - PSHx: 14:54 Dialysis catheter to left upper chest; Pacemaker; aa5 - Immunization history:: Adult Immunizations unknown. - Ebola Screening: : No symptoms or risks identified at this time. - Family history:: not pertinent. - Social history:: Smoking status: Patient/guardian denies using tobacco. Screenin:15 Abuse screen: Denies threats or abuse. Denies injuries from another. Nutritional jl7 screening: No deficits noted. Tuberculosis screening: No symptoms or risk factors identified. Fall Risk IV access (20 points). Total Griffiths Fall Scale indicates No Risk (0-24 pts). Assessment: 15:15 General: Appears in no apparent distress. uncomfortable, Behavior is calm, cooperative, jl7 appropriate for age. Pain: Denies pain. Neuro: Level of Consciousness is awake, alert, obeys commands, Oriented to person, place, time, situation. Cardiovascular: Heart tones present Rhythm is Respiratory: Airway is patent Respiratory effort is even, labored, Respiratory pattern is symmetrical, tachypnea Breath sounds are clear in right upper lobe and left upper lobe. GI: No signs and/or symptoms were reported involving the gastrointestinal system. : No signs and/or symptoms were reported regarding the genitourinary system. EENT: No signs and/or symptoms were reported regarding the EENT system. Derm: Skin is dry, Skin is pale, Skin temperature is cool. 16:15 Reassessment: Patient appears in no apparent distress at this time. No changes from jl7 previously documented assessment. Patient and/or family updated on plan of care and expected duration. Pain level reassessed. Patient is alert, oriented x 3, equal unlabored respirations, skin warm/dry/pink. 17:15 Reassessment: Patient appears in no apparent distress at this time. Patient and/or jl7 family updated on plan of care and expected duration. Pain level reassessed. Patient is alert, oriented x 3, equal unlabored respirations, skin warm/dry/pink. 18:15 Reassessment: Patient appears in no apparent distress at this time. Patient and/or jl7 family updated on plan of care and expected duration. Pain level reassessed. Patient is alert, oriented x 3, equal unlabored respirations, skin warm/dry/pink. 19:47 Reassessment: Patient appears in no apparent distress at this time. No changes from jd3 previously documented assessment. Patient and/or family updated on plan of care and expected duration. Pain level reassessed. Patient is alert, oriented x 3, equal unlabored respirations, skin warm/dry/pink. Vital Signs: 14:54 BP 114 / 48; Pulse 77; Resp 34 S; Pulse Ox 100% on 2% Non-rebreather mask; aa5 14:58 Pulse Ox 94% on 2 lpm NC; aa5 14:58 Temp 96.7(A); aa5 16:00 BP 93 / 40; Pulse 68; Resp 23; Pulse Ox 100% on BiPAP; jl7 16:30 BP 107 / 50; Pulse 65; Resp 26; Pulse Ox 98% on BiPAP; jl7 16:41 BP 109 / 42; Pulse 65; Resp 24 S; Pulse Ox 98% on BiPAP; Weight 54.43 kg (R); jl7 17:30 BP 106 / 39; Pulse 65; Resp 22; Pulse Ox 98% on BiPAP; jl7 18:00 BP 113 / 40; Pulse 69; Resp 24; Pulse Ox 95% on BiPAP; jl7 18:30 BP 107 / 42; Pulse 60; Resp 26 S; Temp 97.1(O); Pulse Ox 98% on R/A; jl7 19:48 BP 127 / 51; Pulse 69; Resp 22; Temp 97.2(TE); Pulse Ox 100% on BiPAP; jd3 ED Course: 14:54 Patient arrived in ED. aj 14:54 Arm band placed on. aa5 14:55 Cosme Anguiano MD is Attending Physician. garth 15:00 Patient has correct armband on for positive identification. Placed in gown. Bed in low jl7 position. Call light in reach. Side rails up X2. manager monitoring on. Pulse ox on. NIBP on. Warm blanket given. 15:03 Triage completed. aa5 15:06 Ana Cristina Bejarano, RN is Primary Nurse. jl7 15:20 EKG done, by ekg monitor tech. reviewed by Cosme Anguiano MD. sm3 15:43 Missed attempt(s): 20 gauge in right antecubital area. Bleeding controlled, band aid aa5 applied, catheter tip intact. 15:50 Missed attempt(s): 22 gauge in left forearm. Bleeding controlled, band aid applied, aa5 catheter tip intact. 15:55 XRAY Chest (1 view) In Process Unspecified. EDMS 16:03 Inserted saline lock: 22 gauge in left antecubital area, using aseptic technique. aa5 16:[address] Anguiano with Allie at the [facility]/ patient declined due eb to being at capacity and have no ICU meds. 16:[address] Anguiano with Manuel Wu at the [facility].. 16:36 transfer denied by manuel at [facility] due to being at capacity. eb 16:40 initiated a transfer with Og at the [facility] transfer center. eb 16:46 patient denied at [facility] by Og due to them being at capacity. eb 16:[address] Anguiano with Carmen at the [facility] transfer center/ transfer was eb declined due to being at capacity. 16:50 Inserted saline lock: 22 gauge in right wrist, using aseptic technique. IV inserted by aaMENDY Gill. 17:50 initiated at transfer with Jackie from the [facility]. eb 18:00 administrative approval given by Jackie De Anda RN, Dr. Mcpherson has accepted the patient eb in transfer, patient will be going to [facility] at [id number] [facility], [id number]. patient is going to the ER, report to be called to [phone]. 18:51 No provider procedures requiring assistance completed. Patient transferred, IV remains jl7 in place. intact, No redness/swelling at site. 19:09 Report given to JOSSELYN Gonzalez. jl7 Administered Medications: 16:55 Drug: ProTONIX 80 mg Route: IVP; Site: left antecubital; aa5 17:30 Follow up: Response: No adverse reaction jl7 16:55 Drug: ProTONIX 8 mg/hr Route: IV; Rate: 25 ml/hr; Site: right wrist; aa5 19:46 Follow up: Response: No adverse reaction; IV Status: Infusion continued upon transfer jd3 16:55 Drug: SOLU-Medrol 2 mg/kg Route: IVP; Site: left antecubital; aa5 17:30 Follow up: Response: No adverse reaction jl7 16:55 Drug: Xopenex 2.5 mg Route: Inhalation; aa5 17:30 Follow up: Response: No adverse reaction jl7 16:55 Drug: AtroVENT Aerosol 0.5 mg Route: Inhalation; aa5 17:30 Follow up: Response: No adverse reaction 7 17:00 Drug: Vitamin K1 10 mg Route: Sub-Q; Site: left upper arm; aa5 17:30 Follow up: Response: No adverse reaction 7 18:00 Drug: Tylenol 650 mg Route: PO; jl7 18:00 Follow up: Response: No adverse reaction 7 18:00 Drug: Benadryl 12.5 mg Route: IVP; Site: left antecubital; jl7 18:30 Follow up: Response: No adverse reaction jl7 19:23 Drug: Rocephin - (cefTRIAXone) 1 grams Route: IVPB; Infused Over: 5 mins; Site: left tl1 antecubital; 19:46 Follow up: Response: No adverse reaction; IV Status: Completed infusion jd3 Medication: 18:00 Blood products: Plasma X 1 unit given. See transfusion record. jl7 18:40 Blood products: PRBCs X 1 unit given. See transfusion record. jl7 Outcome: 16:29 ER care complete, transfer ordered by MD. liang 19:49 Transferred by ground EMS to other acute care facility: [facility] . X-rays sent w/ jd3 patient. 19:49 Condition: stable 19:49 Instructed on the need for transfer, Demonstrated understanding of instructions. 19:59 Patient left the ED. jd3 Signatures: Dispatcher [employer] EDMS Rona Blanco, RN Cosme Evans MD MD cha Calderon, Audri RN RN aa5 Rosy Valenzuela RN RN tl1 Ana Cristina Bejarano RN RN jl7 Brandin Silva RN RN jd3 Cammy Patel Shakira 3 Corrections: (The following items were deleted from the chart) 17:12 16:50 Inserted saline lock: 22 gauge in right forearm, using aseptic technique. IV aa5 inserted by Danika Banda, guitar technician aa5 18:02 17:50 initiated at transfer with Jackie at the [facility] transfer center in [facility] 18:17 18:14 administrative approval given by Jackie De Anda RN, Dr. Mcpherson has accepted the patient in transfer, patient will be going to [facility] at [id number] [facility], [id number]. patient is going to the ER, report to be called to [phone],
--- NOTE | 2018-04-04 16:30 | EDPHYS ---
Physician Documentation [facility] Name: Bárbara Thakkar Age: 88 yrs Sex: Female : 1930 Arrival Date: 04/04/2018 Time: 14:54 Bed 3 Private MD: ED Physician Cosme Anguiano HPI: 04/04 15:40 This 88 yrs old Female presents to ER via EMS with complaints of Shortness Of garth Breath. 15:40 The patient has shortness of breath at rest, with light activity. Onset: The garth symptoms/episode began/occurred just prior to arrival. The patient's shortness of breath is aggravated by coughing, supine position, talking, walking. Associated signs and symptoms: Pertinent positives: non-productive cough, nausea. Severity of symptoms: At their worst the symptoms were moderate in the emergency department the symptoms are unchanged. The patient has not experienced similar symptoms in the past. Historical: - Allergies: 14:54 acetylcysteine; aa5 14:54 Ciprofloxacin; aa5 14:54 Iodinated Contrast Media - IV Dye; aa5 14:54 PENICILLINS; aa5 - PMHx: 14:54 COPD; ESRD; Hemodialysis-MWF; High Cholesterol; Hypertension; Pacemaker; aa5 - PSHx: 14:54 Dialysis catheter to left upper chest; Pacemaker; aa5 - Immunization history:: Adult Immunizations unknown. - Ebola Screening: : No symptoms or risks identified at this time. - Family history:: not pertinent. - Social history:: Smoking status: Patient/guardian denies using tobacco. ROS: 15:40 Constitutional: Negative for fever, chills, and weight loss, Eyes: Negative for injury, garth pain, redness, and discharge, ENT: Negative for injury, pain, and discharge, Neck: Negative for injury, pain, and swelling, Cardiovascular: Negative for chest pain, palpitations, and edema, Abdomen/GI: Negative for abdominal pain, nausea, vomiting, diarrhea, and constipation, Back: Negative for injury and pain, : Negative for injury, bleeding, discharge, and swelling, Neuro: Negative for headache, weakness, numbness, tingling, and seizure, Psych: Negative for depression, anxiety, suicide ideation, homicidal ideation, and hallucinations, Allergy/Immunology: Negative for hives, rash, and allergies, Endocrine: Negative for neck swelling, polydipsia, polyuria, polyphagia, and marked weight changes, Hematologic/Lymphatic: Negative for swollen nodes, abnormal bleeding, and unusual bruising. 15:40 Respiratory: Positive for cough, shortness of breath, at rest. 15:40 Abdomen/GI: Positive for black/tarry stool. 15:40 MS/extremity: Positive for swelling, of the right arm, left arm, right leg and left leg. 15:40 Skin: Positive for pallor. 15:40 Neuro: Positive for weakness. Exam: 15:40 Constitutional: This is a well developed, well nourished patient who is awake, alert, garth and in no acute distress. Head/Face: Normocephalic, atraumatic. Eyes: Pupils equal round and reactive to light, extra-ocular motions intact. Lids and lashes normal. Conjunctiva and sclera are non-icteric and not injected. Cornea within normal limits. Periorbital areas with no swelling, redness, or edema. Neck: Trachea midline, no thyromegaly or masses palpated, and no cervical lymphadenopathy. Supple, full range of motion without nuchal rigidity, or vertebral point tenderness. No Meningismus. Chest/axilla: Normal chest wall appearance and motion. Nontender with no deformity. No lesions are appreciated. Cardiovascular: Regular rate and rhythm with a normal S1 and S2. No gallops, murmurs, or rubs. Normal PMI, no JVD. No pulse deficits. Back: No spinal tenderness. No costovertebral tenderness. Full range of motion. Skin: Warm, dry with normal turgor. Normal color with no rashes, no lesions, and no evidence of cellulitis. MS/ Extremity: Pulses equal, no cyanosis. Neurovascular intact. Full, normal range of motion. Neuro: Awake and alert, GCS 15, oriented to person, place, time, and situation. Cranial nerves II-XII grossly intact. Motor strength 5/5 in all extremities. Sensory grossly intact. Cerebellar exam normal. Normal gait. Psych: Awake, alert, with orientation to person, place and time. Behavior, mood, and affect are within normal limits. 15:40 Eyes: Conjunctiva: pale, bilaterally, Sclera: 15:40 Respiratory: mild respiratory distress is noted, Respirations: labored breathing, that is mild, that is moderate, Breath sounds: decreased breath sounds, rhonchi, that are moderate. Vital Signs: 14:54 BP 114 / 48; Pulse 77; Resp 34 S; Pulse Ox 100% on 2% Non-rebreather mask; aa5 14:58 Pulse Ox 94% on 2 lpm NC; aa5 14:58 Temp 96.7(A); aa5 16:00 BP 93 / 40; Pulse 68; Resp 23; Pulse Ox 100% on BiPAP; jl7 16:30 BP 107 / 50; Pulse 65; Resp 26; Pulse Ox 98% on BiPAP; jl7 16:41 BP 109 / 42; Pulse 65; Resp 24 S; Pulse Ox 98% on BiPAP; Weight 54.43 kg (R); jl7 17:30 BP 106 / 39; Pulse 65; Resp 22; Pulse Ox 98% on BiPAP; jl7 18:00 BP 113 / 40; Pulse 69; Resp 24; Pulse Ox 95% on BiPAP; jl7 18:30 BP 107 / 42; Pulse 60; Resp 26 S; Temp 97.1(O); Pulse Ox 98% on R/A; jl7 19:48 BP 127 / 51; Pulse 69; Resp 22; Temp 97.2(TE); Pulse Ox 100% on BiPAP; jd3 MDM: 14:55 Patient medically screened. [facility] 15:40 Data reviewed: vital signs, nurses notes, lab test result(s), EKG, radiologic studies. 04/04 15:05 Order name: Basic Metabolic Panel; Complete Time: 16:21 [facility] 04/04 15:05 Order name: CBC with Diff; Complete Time: 16:21 04/04 15:05 Order name: LFT's; Complete Time: 16:21 04/04 15:05 Order name: Magnesium; Complete Time: 16:21 garth 04/04 15:05 Order name: NT PRO-BNP; Complete Time: 16:21 04/04 15:05 Order name: PT-INR; Complete Time: 16:21 [facility] 04/04 15:05 Order name: Troponin (emerg Dept Use Only); Complete Time: 16:21 [facility] 04/04 15:05 Order name: Blood Culture Adult (2) 04/04 15:05 Order name: Lipase; Complete Time: 16:21 04/04 15:05 Order name: Urine Culture 04/04 15:33 Order name: Occult Blood--Ancillary; Complete Time: 16:21 04/04 15:37 Order name: Type And Screen [facility] 04/04 16:16 Order name: Urine Dipstick--Ancillary (enter results); Complete Time: 19:09 04/04 16:43 Order name: Packed RBC Leukored -1 [facility] 04/04 15:05 Order name: XRAY Chest (1 view); Complete Time: 19:09 [facility] 04/04 15:05 Order name: EKG; Complete Time: 15:06 [facility] 04/04 15:05 Order name: Cardiac monitoring; Complete Time: 15:08 [facility] 04/04 15:05 Order name: EKG - Nurse/Tech; Complete Time: 15:08 [facility] 04/04 17:02 Order name: Fresh Frozen Plasma [facility] 04/04 17:34 Order name: BIPAP [facility] 04/04 15:05 Order name: IV Saline Lock; Complete Time: 15:08 [facility] 04/04 15:05 Order name: Labs collected and sent; Complete Time: 15:08 [facility] 04/04 15:05 Order name: O2 Per Protocol; Complete Time: 15:08 [facility] 04/04 15:05 Order name: O2 Sat Monitoring; Complete Time: 15:08 [facility] 04/04 15:05 Order name: Urine Dipstick-Ancillary (obtain specimen); Complete Time: 16:02 [facility] 04/04 15:37 Order name: Murdock; Complete Time: 16:02 [facility] 04/04 16:25 Order name: Transfuse; Complete Time: 19:15 [facility] Administered Medications: 16:55 Drug: ProTONIX 80 mg Route: IVP; Site: left antecubital; aa5 17:30 Follow up: Response: No adverse reaction jl7 16:55 Drug: ProTONIX 8 mg/hr Route: IV; Rate: 25 ml/hr; Site: right wrist; aa5 19:46 Follow up: Response: No adverse reaction; IV Status: Infusion continued upon transfer jd3 16:55 Drug: SOLU-Medrol 2 mg/kg Route: IVP; Site: left antecubital; aa5 17:30 Follow up: Response: No adverse reaction jl7 16:55 Drug: Xopenex 2.5 mg Route: Inhalation; aa5 17:30 Follow up: Response: No adverse reaction jl7 16:55 Drug: AtroVENT Aerosol 0.5 mg Route: Inhalation; aa5 17:30 Follow up: Response: No adverse reaction 7 17:00 Drug: Vitamin K1 10 mg Route: Sub-Q; Site: left upper arm; aa5 17:30 Follow up: Response: No adverse reaction 7 18:00 Drug: Tylenol 650 mg Route: PO; jl7 18:00 Follow up: Response: No adverse reaction 7 18:00 Drug: Benadryl 12.5 mg Route: IVP; Site: left antecubital; jl7 18:30 Follow up: Response: No adverse reaction 7 19:23 Drug: Rocephin - (cefTRIAXone) 1 grams Route: IVPB; Infused Over: 5 mins; Site: left tl1 antecubital; 19:46 Follow up: Response: No adverse reaction; IV Status: Completed infusion jd3 Disposition: 04/04/18 16:29 Transfer ordered to [facility]. Diagnosis are Dyspnea, End stage renal disease, Gastrointestinal hemorrhage, unspecified - upper, Weakness. - Reason for transfer: Higher level of care. - Accepting physician is to icu. - Condition is Serious. - Problem is new. - Symptoms have worsened. Signatures: Dispatcher [employer] EDCosme Ledezma MD MD cha Calderon, Audri, RN RN aa5 Rosy Valenzuela RN RN tl1 Ana Cristina Bejarano RN RN jl7 Brandin Silva RN RN jd3 Corrections: (The following items were deleted from the chart) 19:59 16:29 04/04/2018 16:29 Transfer ordered to [facility]. jd3 Diagnosis is Dyspnea; End stage renal disease; Gastrointestinal hemorrhage, unspecified - upper; Weakness. Reason for transfer: Higher level of care. Accepting physician is to icu. Condition is Serious. Problem is new. Symptoms have worsened. garth
[2018-04-04] MEDS ORDERED: NA CHLORIDE 0.9% 500 ML ONE (16:36)
--- NOTE | 2018-04-04 16:44 | RAD REPORT ---
EXAM DESCRIPTION: Td Single View04/04/2018 3:48 pm CLINICAL HISTORY: Shortness of breath COMPARISON: February 2018 FINDINGS: The lungs appear clear of acute infiltrate. The heart is mildly enlarged. Postsurgical changes involve the chest. IMPRESSION: No acute abnormalities displayed
[2018-04-04] MEDS ORDERED: PANTOPRAZOLE INJ 80 MG in NA CHLORIDE 0.9% 250 ML IV SCH (17:00)
[2018-04-04] MEDS ORDERED: IPRATROPIUM BROM 0.5MG/2.5ML ONE (17:08)
[2018-04-04] MEDS ORDERED: METHYLPREDNISOLONE 125 MG INJ ONE (17:08)
[2018-04-04] MEDS ORDERED: LEVALBUTEROL 1.25 MG/3 ML NEB ONE (17:08)
[2018-04-04] MEDS ORDERED: VITAMIN K (ADULT) 10 MG/ML ONE (17:09)
[2018-04-04] MEDS ORDERED: PANTOPRAZOLE 40 MG INJ ONE (17:09)
[2018-04-04 17:39] LABS: Urine Blood 3+ (NEG); Urine Glucose NEGATIVE (NEG); Urine Protein 2+ (NEG)
[2018-04-04] MEDS ORDERED: ACETAMINOPHEN 325 MG TABLET ONE (18:06)
[2018-04-04] MEDS ORDERED: DIPHENHYDRAMINE 50 MG/ML VIAL ONE (18:06)
[2018-04-04] MEDS ORDERED: NA CHLORIDE 0.9% 250 ML ONE (18:39)
[2018-04-04] MEDS ORDERED: CEFTRIAXONE/SWI 1gm 1 GM/10 ML SYR ONE (19:24)
== END 2018-04-04 19:59 | disposition short-term general hospital (02) ==
LOC: ER 14:58
DX: R06.00 Dyspnea, unspecified (principal); K92.2 Gastrointestinal hemorrhage, unspecified; R53.1 Weakness; J44.9 Chronic obstructive pulmonary disease, unspecified; I12.0 Hypertensive chronic kidney disease with stage 5 chronic kidney disease or end stage renal disease; N18.6 End stage renal disease; Z99.2 Dependence on renal dialysis; Z95.0 Presence of cardiac pacemaker; Z88.0 Allergy status to penicillin; Z88.8 Allergy status to other drugs, medicaments and biological substances; Z88.1 Allergy status to other antibiotic agents; Z91.041 Radiographic dye allergy status
CPT/HCPCS: 36415; 36430; 71045; 80048; 80076; 81003; 82272; 83690; 83735; 83880; 84484; 85025; 85610; 86850; 86900; 86901; 87040 ×2; 87088; 93005; 94660; 96365; 96366; 96368; 96372; 96375; 99285; C9113 ×2; J0696; J2930; J3430; P9016; P9059; 87086

== ENCOUNTER 2018-04-28 09:24 | Observation (INO) | payer OTHER ==
[2018-04-28] MEDS ORDERED: METHYLPREDNISOLONE 125 MG INJ ONE (09:41)
[2018-04-28] MEDS ORDERED: LEVALBUTEROL 1.25 MG/3 ML NEB ONE (09:41)
--- OUTSIDE RECORDS SUMMARY | 2018-04-28 09:43 | XMS REPORT ---
:1930 Author Organization [facility] Address [address] [place] [address] Care Team Providers Name Role Phone Unavailable Unavailable Unavailable Payers Payer Name Policy Type Policy Number Effective Date Expiration Date Problems This patient has no known problems. Allergies, Adverse Reactions, Alerts Allergy Name Allergy Status Severity Reaction(s) Onset Inactive Treating Comments Type Date Date Clinician Iodinated DA Active MO 2019-0 Contrast- Oral 2-16 and IV Dye 00:00: 00 Penicillins DA Active MO 2019-0 2-16 00:00: 00 acetylcysteine DA Active MO 2019-0 2-16 00:00: 00 ciprofloxacin DA Active MO 2019-0 2-16 00:00: 00 Iodinated DA Active MO 2018-0 Contrast- Oral 6-28 and IV Dye 00:00: 00 Penicillins DA Active MO 2018-0 6-28 00:00: 00 acetylcysteine DA Active MO 2018-0 6-28 00:00: 00 ciprofloxacin DA Active MO 2018-0 6-28 00:00: 00 Medications This patient has no known medications. Results Test Description Test Time Test Comments Text Results Atomic Results Result Comments B-TYPE NATRIURETIC PEPTIDE 2018-04-17 08:19:00 Test Item Value Reference Range Comments B-TYPE NATRIURETIC PEPTIDE (test code=BNP) > 5000.0 PG/ML 0-100 BASIC METABOLIC [id number] 08:04:00 Test Item Value Reference Range Comments SODIUM (test code=NA) 133 MMOL/L 137-145 POTASSIUM (test code=K) 3.5 MMOL/L 3.5-5.1 CHLORIDE (test code=CL) 97 MMOL/L 98-107 CARBON DIOXIDE (test code=CO2) 27 MMOL/L 22-30 ANION GAP (test code=GAP) 13 MMOL/L 14-24 GLUCOSE (test code=GLU) 92 MG/DL 74-106 BLOOD UREA NITROGEN (test 22 MG/DL 7-17 code=BUN) GLOMERULAR FILTRATION RATE 17 Reporting units: ml/min/1.73 (test code=GFR) m2 (Modified MDRD Formula)Reference Range: > or=60 ml/min/1.73 m2 CREATININE (test code=CREAT) 2.70 MG/DL 0.52-1.04 CALCIUM (test code=CA) 9.1 MG/DL 8.4-10.2 CBC W/AUTO [id number] 07:51:00 Test Item Value Reference Range Comments WHITE BLOOD CELL (test code=WBC) 6.1 K/MM3 3.8-9.8 RED BLOOD CELL (test code=RBC) 2.91 M/MM3 3.58-4.97 HEMOGLOBIN (test code=HGB) 8.5 G/DL 11.2-14.9 HEMATOCRIT (test code=HCT) 28.3 % 33.2-43.5 MEAN CELL VOLUME (test code=MCV) 97 fL 80.7-99.1 MEAN CELL HGB (test code=MCH) 29.2 pg 27.0-34.1 MEAN CELL HGB CONCETRATION (test code=MCHC) 30.0 % 32.2-35.7 RED CELL DISTRIBUTION WIDTH (test code=RDW) 18.6 % 12.1-15.2 PLATELET COUNT (test code=PLT) 131 K/MM3 129-368 MEAN PLATELET VOLUME (test code=MPV) 10.4 fl 7.4-10.4 NEUTROPHIL % (test code=NT%) 73.7 % 43-75 IMMATURE GRANULOCYTE % (test code=IG%) 0.8 % 0.0-2.0 LYMPHOCYTE % (test code=LY%) 10.3 % 14-44 MONOCYTE % (test code=MO%) 8.8 % 4-13 EOSINOPHIL % (test code=EO%) 6.1 % 0-6 BASOPHIL % (test code=BA%) 0.3 % 0-2 NUCLEATED RBC % (test code=NRBC%) 0.0 % 0-1.0 NEUTROPHIL # (test code=NT#) 4.50 K/mm3 2.0-7.6 IMMATURE GRANULOCYTE # (test code=IG#) 0.05 x10 3/uL 0-0.03 LYMPHOCYTE # (test code=LY#) 0.63 K/mm3 1.0-3.8 MONOCYTE # (test code=MO#) 0.54 K/mm3 0.1-0.8 EOSINOPHIL # (test code=EO#) 0.37 K/mm3 0.0-0.2 BASOPHIL # (test code=BA#) 0.02 K/mm3 0.0-0.2 NUCLEATED RBC # (test code=NRBC#) 0.00 K/mm3 0.0-0.1 PROCALCITONIN (PCT)2018-04-16 12:27:00 Test Item Value Reference Range Comments PROCALCITONIN (PCT) (test 0.47 NG/ML PROCALCITONIN (PCT) NORMAL code=PROCAL) RANGE (ADULT):<0.05 NG/ML. - a concentration < 0.5 ng/mL represents a low risk ofsevere sepsis and/or septic shock. - a concentration > 2 ng/mL represents a high risk ofsevere sepsis and/or septic shock. Nevertheless, concentrations < 0.5 ng/mL do not exclude aninfection, on account of localized infections (withoutsystemic signs) which can be associated with such lowconcentrations, or a systemic infection in its initialstages (< 6 hours). Furthermore, increased procalcitonincan occur without infection. PCT concentrations between 0.5and 2.0 ng/mL should be interpreted taking into account thepatient's history. It is recommended to retest PCT within 6-24 hours if any concentrations < 2 ng/mL are obtained. - XR CHEST [id number] 07:52:00 Patient Name: DALJIT JOHNSON Unit No: [id number] EXAMS: CPT CODE: [id number] XR CHEST 1V [id number] EXAM: Portable chest x-ray Location: B2 COMPARISON: Chest x-ray on 04/14/2018 INDICATION: On Ventilator DISCUSSION: The endotracheal tube has been removed. A left IJ central venous catheter and dual-lead pacing device are again noted. Mild cardiac silhouette enlargement is noted. There is new bibasilar retrocardiac consolidation and a small right pleural effusion which is new or slightly increased. Mild central and peripheral vascular congestion are noted. No acute bony abnormalities are seen. IMPRESSION: 1. Interval extubation. There is new bibasilar retrocardiac opacity, likely due to atelectasis. 2. Small right pleural effusion, new or slightly increased. 3. Mild cardiac silhouette enlargement with central and peripheral vascular congestion, suggestive of CHF. Electronically Signed by Albert Turk MD on04/16 at 0752 Reported and signed by: Albert Turk MD CC: Cas Aguayo; [employer] MANAGER SECONDARY Technologist: Sandra Greenfield RT(R); Yadira Faulkner RT(R) Transcrpt Date/Tm/Trnsp: 04/16/2018 (0752) [email or web address] Orig Print D/T: S: 04/16/2018 (0755) [facility] NAME: DALJIT JOHNSON [address] PHYS: [email or web address] [place] [address] : 1930 AGE: 88 SEX: F LOC: [id number].I12 A PHONE #: [phone] EXAM DATE: 04/16/2018 STATUS: ADM IN FAX #: [phone] RADIOLOGY NO: PAGE 1 Signed ReportBASIC METABOLIC [id number] 05:30:00 Test Item Value Reference Range Comments SODIUM (test code=NA) 137 MMOL/L 137-145 POTASSIUM (test code=K) 4.2 MMOL/L 3.5-5.1 CHLORIDE (test code=CL) 100 MMOL/L 98-107 CARBON DIOXIDE (test code=CO2) 28 MMOL/L 22-30 GLUCOSE (test code=GLU) 94 MG/DL 74-106 BLOOD UREA NITROGEN (test 10 MG/DL 7-17 code=BUN) GLOMERULAR FILTRATION RATE 36 Reporting units: ml/min/1.73 (test code=GFR) m2 (Modified MDRD Formula)Reference Range: > or=60 ml/min/1.73 m2 CREATININE (test code=CREAT) 1.40 MG/DL 0.52-1.04 CALCIUM (test code=CA) 9.2 MG/DL 8.4-10.2 CBC W/AUTO [id number] 05:06:00 Test Item Value Reference Range Comments WHITE BLOOD CELL (test code=WBC) 7.2 K/MM3 3.8-9.8 RED BLOOD CELL (test code=RBC) 3.12 M/MM3 3.58-4.97 HEMOGLOBIN (test code=HGB) 9.0 G/DL 11.2-14.9 HEMATOCRIT (test code=HCT) 30.2 % 33.2-43.5 MEAN CELL VOLUME (test code=MCV) 97 fL 80.7-99.1 MEAN CELL HGB (test code=MCH) 28.8 pg 27.0-34.1 MEAN CELL HGB CONCETRATION (test code=MCHC) 29.8 % 32.2-35.7 RED CELL DISTRIBUTION WIDTH (test code=RDW) 19.1 % 12.1-15.2 PLATELET COUNT (test code=PLT) 135 K/MM3 129-368 MEAN PLATELET VOLUME (test code=MPV) 10.4 fl 7.4-10.4 NEUTROPHIL % (test code=NT%) 74.1 % 43-75 IMMATURE GRANULOCYTE % (test code=IG%) 0.4 % 0.0-2.0 LYMPHOCYTE % (test code=LY%) 11.6 % 14-44 MONOCYTE % (test code=MO%) 11.8 % 4-13 EOSINOPHIL % (test code=EO%) 1.7 % 0-6 BASOPHIL % (test code=BA%) 0.4 % 0-2 NUCLEATED RBC % (test code=NRBC%) 0.0 % 0-1.0 NEUTROPHIL # (test code=NT#) 5.36 K/mm3 2.0-7.6 IMMATURE GRANULOCYTE # (test code=IG#) 0.03 x10 3/uL 0-0.03 LYMPHOCYTE # (test code=LY#) 0.84 K/mm3 1.0-3.8 MONOCYTE # (test code=MO#) 0.85 K/mm3 0.1-0.8 EOSINOPHIL # (test code=EO#) 0.12 K/mm3 0.0-0.2 BASOPHIL # (test code=BA#) 0.03 K/mm3 0.0-0.2 NUCLEATED RBC # (test code=NRBC#) 0.00 K/mm3 0.0-0.1 BASIC METABOLIC [id number] 05:41:00 Test Item Value Reference Range Comments SODIUM (test code=NA) 137 MMOL/L 137-145 POTASSIUM (test code=K) 4.0 MMOL/L 3.5-5.1 CHLORIDE (test code=CL) 97 MMOL/L 98-107 CARBON DIOXIDE (test code=CO2) 29 MMOL/L 22-30 ANION GAP (test code=GAP) 15 MMOL/L 14-24 GLUCOSE (test code=GLU) 106 MG/DL 74-106 BLOOD UREA NITROGEN (test 17 MG/DL 7-17 code=BUN) GLOMERULAR FILTRATION RATE 14 Reporting units: ml/min/1.73 (test code=GFR) m2 (Modified MDRD Formula)Reference Range: > or=60 ml/min/1.73 m2 CREATININE (test code=CREAT) 3.20 MG/DL 0.52-1.04 CALCIUM (test code=CA) 10.2 MG/DL 8.4-10.2 [id number] 05:41:00 Test Item Value Reference Range Comments PHOSPHOROUS (test code=PHOS) 3.4 MG/DL 2.5-4.5 [id number] 05:41:00 Test Item Value Reference Range Comments MAGNESIUM (test code=MAG) 2.0 MG/DL 1.6-2.3 CBC W/AUTO [id number] 05:16:00 Test Item Value Reference Range Comments WHITE BLOOD CELL (test code=WBC) 11.1 K/MM3 3.8-9.8 RED BLOOD CELL (test code=RBC) 3.36 M/MM3 3.58-4.97 HEMOGLOBIN (test code=HGB) 9.7 G/DL 11.2-14.9 HEMATOCRIT (test code=HCT) 31.3 % 33.2-43.5 MEAN CELL VOLUME (test code=MCV) 93 fL 80.7-99.1 MEAN CELL HGB (test code=MCH) 28.9 pg 27.0-34.1 MEAN CELL HGB CONCETRATION (test code=MCHC) 31.0 % 32.2-35.7 RED CELL DISTRIBUTION WIDTH (test code=RDW) 19.0 % 12.1-15.2 PLATELET COUNT (test code=PLT) 162 K/MM3 129-368 MEAN PLATELET VOLUME (test code=MPV) 10.3 fl 7.4-10.4 NEUTROPHIL % (test code=NT%) 85.3 % 43-75 IMMATURE GRANULOCYTE % (test code=IG%) 0.6 % 0.0-2.0 LYMPHOCYTE % (test code=LY%) 5.0 % 14-44 MONOCYTE % (test code=MO%) 6.7 % 4-13 EOSINOPHIL % (test code=EO%) 1.9 % 0-6 BASOPHIL % (test code=BA%) 0.5 % 0-2 NUCLEATED RBC % (test code=NRBC%) 0.0 % 0-1.0 NEUTROPHIL # (test code=NT#) 9.5 K/mm3 2.0-7.6 IMMATURE GRANULOCYTE # (test code=IG#) 0.07 x10 3/uL 0-0.03 LYMPHOCYTE # (test code=LY#) 0.6 K/mm3 1.0-3.8 MONOCYTE # (test code=MO#) 0.74 K/mm3 0.1-0.8 EOSINOPHIL # (test code=EO#) 0.2 K/mm3 0.0-0.2 BASOPHIL # (test code=BA#) 0.05 K/mm3 0.0-0.2 NUCLEATED RBC # (test code=NRBC#) 0.0 K/mm3 0.0-0.1 CPK-MB [id number] 00:30:00 Test Item Value Reference Range Comments CREATINE KINASE (CK) (test code=CK) 43 UNITS/L 30-135 CKMB (test code=CKMBT) 2.63 NG/ML 0.0-5.6 CKMB INDEX (test code=CKMBI) 6.1 % 4.0-4.4 [id number] 00:30:00 Test Item Value Reference Range Comments TROPONIN-I (test 0.517 NG/ML 0.012-0.033 CALLED TO JESSICA Virk& code=TROPI) READBACK ON 04/15/18 AT 0030 BY Silvano Mena HGB [id number] 00:05:00 Test Item Value Reference Range Comments HEMOGLOBIN (test code=HGB) 9.8 G/DL 11.2-14.9 HEMATOCRIT (test code=HCT) 31.5 % 33.2-43.5 CPK-MB [id number] 20:46:00 Test Item Value Reference Range Comments CREATINE KINASE (CK) (test code=CK) 43 UNITS/L 30-135 CKMB (test code=CKMBT) 2.63 NG/ML 0.0-5.6 CKMB INDEX (test code=CKMBI) 6.1 % 4.0-4.4 [id number] 20:46:00 Test Item Value Reference Range Comments TROPONIN-I (test 0.460 NG/ML 0.012-0.033 CALLED TO JESSICA Virk& code=TROPI) READBACK ON 04/14/18 AT 2046 BY Maya Parker CPK-MB [id number] 20:30:00 Test Item Value Reference Range Comments CREATINE KINASE (CK) (test code=CK) 43 UNITS/L 30-135 CKMB (test code=CKMBT) NG/ML 0.0-5.6 CKMB INDEX (test code=CKMBI) % 4.0-4.4 [id number] 20:30:00 Test Item Value Reference Range Comments TROPONIN-I (test code=TROPI) NG/ML 0.0-0.045 LACTIC [id number] 17:43:00 Test Item Value Reference Range Comments LACTIC ACID (test code=LACT) 0.8 MMOL/L 0.7-2.1 CPK-MB [id number] 14:06:00 Test Item Value Reference Range Comments CREATINE KINASE (CK) (test code=CK) 49 UNITS/L 30-135 CKMB (test code=CKMBT) 3.88 NG/ML 0.0-5.6 CKMB INDEX (test code=CKMBI) 7.9 % 4.0-4.4 [id number] 14:06:00 Test Item Value Reference Range Comments TROPONIN-I (test 0.248 NG/ML 0.012-0.033 CALLED TO MADISON& READBACK ON code=TROPI) 04/14/18 AT 1405 BY Mike Perez LACTIC [id number] 13:49:00 Test Item Value Reference Range Comments LACTIC ACID (test code=LACT) 0.9 MMOL/L 0.7-2.1 CPK-MB [id number] 13:49:00 Test Item Value Reference Range Comments CREATINE KINASE (CK) (test code=CK) 49 UNITS/L 30-135 CKMB (test code=CKMBT) NG/ML 0.0-5.6 CKMB INDEX (test code=CKMBI) % 4.0-4.4 [id number] 13:49:00 Test Item Value Reference Range Comments TROPONIN-I (test code=TROPI) NG/ML 0.0-0.045 PROTHROMBIN [id number] 11:52:00 Test Item Value Reference Range Comments PROTHROMBIN TIME PATIENT (test 12.7 SECONDS 9.6-11.6 code=PTP) INTERNATIONAL NORMAL RATIO 1.2 0.8-1.1 The INR is to be used only (test code=INR) for monitoring oral anticoagulanttherapy. INDICATION INR VALUE 1. Prophylaxis, deep venous thrombosis, including high risk surgery. 2.0 - 3.0 2. Prophylaxis, deep venous thrombosis, hip surgery, treatment for deep venous thrombosis or pulmonary prevention of systemic embolism in patients with valvular heart disease, atrial fibrillation, tissue heart valve, or acute myocardial infarction. 2.0 - 3.0 3. Mechanical prosthesis heart valves, recurrent systemic embolism. 3.0 - 4.5 UNABLE TO DRAW BLOOD, REASON: HARDSTICKNOTIFIED PATIENT CARE STAFF: JOSSELYN PETERSON 04/14/18 AT 1052 BY Franchesca Garrison METABOLIC [id number] 11:38:00 Test Item Value Reference Range Comments SODIUM (test code=NA) 134 MMOL/L 137-145 POTASSIUM (test code=K) 4.3 MMOL/L 3.5-5.1 CHLORIDE (test code=CL) 97 MMOL/L 98-107 CARBON DIOXIDE (test code=CO2) 29 MMOL/L 22-30 ANION GAP (test code=GAP) 12 MMOL/L 14-24 GLUCOSE (test code=GLU) 122 MG/DL 74-106 BLOOD UREA NITROGEN (test 10 MG/DL 7-17 code=BUN) GLOMERULAR FILTRATION RATE 22 Reporting units: (test code=GFR) ml/min/1.73 m2 (Modified MDRD Formula)Reference Range: > or=60 ml/min/1.73 m2 CREATININE (test code=CREAT) 2.10 MG/DL 0.52-1.04 TOTAL PROTEIN (test code=PROT) 5.4 G/DL 6.3-8.2 ALBUMIN (test code=ALB) 3.5 G/DL 3.5-5.0 CALCIUM (test code=CA) 10.0 MG/DL 8.4-10.2 BILIRUBIN TOTAL (test 0.8 MG/DL 0.2-1.3 code=BILT) SGOT/AST (test code=AST) 275 UNITS/L 14-36 SGPT/ALT (test code=ALT) 254 UNITS/L 9-52 ALKALINE PHOSPHATASE (test 70 UNITS/L 38-126 code=ALKP) [id number] 11:38:00 Test Item Value Reference Range Comments PHOSPHOROUS (test code=PHOS) 3.0 MG/DL 2.5-4.5 [id number] 11:38:00 Test Item Value Reference Range Comments MAGNESIUM (test code=MAG) 2.0 MG/DL 1.6-2.3 LIPOPROTEIN LDL [id number] 11:38:00 Test Item Value Reference Range Comments LIPOPROTEIN LDL DIRECT (test 40 mg/dL 100-129 code=LDLDIR) ===Reference Interval: mg/dL mmol/L ---------Optimal <100 <2.6Near/above optimal 100-129 2.6-3.3Borderline High 130-159 3.4-4.1High 160-189 4.1-4.9Very High >=190 >=4.9=========This LDL result is a direct measurement.========= CPK-MB [id number] 11:38:00 Test Item Value Reference Range Comments CREATINE KINASE (CK) (test code=CK) 51 UNITS/L 30-135 CKMB (test code=CKMBT) 3.07 NG/ML 0.0-5.6 CKMB INDEX (test code=CKMBI) 6.0 % 4.0-4.4 [id number] 11:38:00 Test Item Value Reference Range Comments TROPONIN-I (test code=TROPI) 0.091 NG/ML 0.012-0.033 PROCALCITONIN (PCT)2018-04-14 11:38:00 Test Item Value Reference Range Comments PROCALCITONIN (PCT) (test 0.14 NG/ML PROCALCITONIN (PCT) NORMAL code=PROCAL) RANGE (ADULT):<0.05 NG/ML. - a concentration < 0.5 ng/mL represents a low risk ofsevere sepsis and/or septic shock. - a concentration > 2 ng/mL represents a high risk ofsevere sepsis and/or septic shock. Nevertheless, concentrations < 0.5 ng/mL do not exclude aninfection, on account of localized infections (withoutsystemic signs) which can be associated with such lowconcentrations, or a systemic infection in its initialstages (< 6 hours). Furthermore, increased procalcitonincan occur without infection. PCT concentrations between 0.5and 2.0 ng/mL should be interpreted taking into account thepatient's history. It is recommended to retest PCT within 6-24 hours if any concentrations < 2 ng/mL are obtained. COMPREHENSIVE METABOLIC [id number] 11:27:00 Test Item Value Reference Range Comments SODIUM (test code=NA) 134 MMOL/L 137-145 POTASSIUM (test code=K) 4.3 MMOL/L 3.5-5.1 CHLORIDE (test code=CL) 97 MMOL/L 98-107 CARBON DIOXIDE (test code=CO2) 29 MMOL/L 22-30 ANION GAP (test code=GAP) 12 MMOL/L 14-24 GLUCOSE (test code=GLU) 122 MG/DL 74-106 BLOOD UREA NITROGEN (test 10 MG/DL 7-17 code=BUN) GLOMERULAR FILTRATION RATE 22 Reporting units: (test code=GFR) ml/min/1.73 m2 (Modified MDRD Formula)Reference Range: > or=60 ml/min/1.73 m2 CREATININE (test code=CREAT) 2.10 MG/DL 0.52-1.04 TOTAL PROTEIN (test code=PROT) 5.4 G/DL 6.3-8.2 ALBUMIN (test code=ALB) 3.5 G/DL 3.5-5.0 CALCIUM (test code=CA) 10.0 MG/DL 8.4-10.2 BILIRUBIN TOTAL (test 0.8 MG/DL 0.2-1.3 code=BILT) SGOT/AST (test code=AST) 275 UNITS/L 14-36 SGPT/ALT (test code=ALT) 254 UNITS/L 9-52 ALKALINE PHOSPHATASE (test 70 UNITS/L 38-126 code=ALKP) [id number] 11:27:00 Test Item Value Reference Range Comments PHOSPHOROUS (test code=PHOS) 3.0 MG/DL 2.5-4.5 [id number] 11:27:00 Test Item Value Reference Range Comments MAGNESIUM (test code=MAG) 2.0 MG/DL 1.6-2.3 LIPOPROTEIN LDL [id number] 11:27:00 Test Item Value Reference Range Comments LIPOPROTEIN LDL DIRECT (test code=LDLDIR) mg/dL 100-129 CPK-MB [id number] 11:27:00 Test Item Value Reference Range Comments CREATINE KINASE (CK) (test code=CK) 51 UNITS/L 30-135 CKMB (test code=CKMBT) 3.07 NG/ML 0.0-5.6 CKMB INDEX (test code=CKMBI) 6.0 % 4.0-4.4 [id number] 11:27:00 Test Item Value Reference Range Comments TROPONIN-I (test code=TROPI) 0.091 NG/ML 0.012-0.033 PROCALCITONIN (PCT)2018-04-14 11:27:00 Test Item Value Reference Range Comments PROCALCITONIN (PCT) (test 0.14 NG/ML PROCALCITONIN (PCT) NORMAL code=PROCAL) RANGE (ADULT):<0.05 NG/ML. - a concentration < 0.5 ng/mL represents a low risk ofsevere sepsis and/or septic shock. - a concentration > 2 ng/mL represents a high risk ofsevere sepsis and/or septic shock. Nevertheless, concentrations < 0.5 ng/mL do not exclude aninfection, on account of localized infections (withoutsystemic signs) which can be associated with such lowconcentrations, or a systemic infection in its initialstages (< 6 hours). Furthermore, increased procalcitonincan occur without infection. PCT concentrations between 0.5and 2.0 ng/mL should be interpreted taking into account thepatient's history. It is recommended to retest PCT within 6-24 hours if any concentrations < 2 ng/mL are obtained. COMPREHENSIVE METABOLIC [id number] 10:29:00 Test Item Value Reference Range Comments SODIUM (test code=NA) 134 MMOL/L 137-145 POTASSIUM (test code=K) 4.3 MMOL/L 3.5-5.1 CHLORIDE (test code=CL) 97 MMOL/L 98-107 CARBON DIOXIDE (test code=CO2) 29 MMOL/L 22-30 ANION GAP (test code=GAP) 12 MMOL/L 14-24 GLUCOSE (test code=GLU) 122 MG/DL 74-106 BLOOD UREA NITROGEN (test 10 MG/DL 7-17 code=BUN) GLOMERULAR FILTRATION RATE 22 Reporting units: (test code=GFR) ml/min/1.73 m2 (Modified MDRD Formula)Reference Range: > or=60 ml/min/1.73 m2 CREATININE (test code=CREAT) 2.10 MG/DL 0.52-1.04 TOTAL PROTEIN (test code=PROT) 5.4 G/DL 6.3-8.2 ALBUMIN (test code=ALB) 3.5 G/DL 3.5-5.0 CALCIUM (test code=CA) 10.0 MG/DL 8.4-10.2 BILIRUBIN TOTAL (test 0.8 MG/DL 0.2-1.3 code=BILT) SGOT/AST (test code=AST) 275 UNITS/L 14-36 SGPT/ALT (test code=ALT) 254 UNITS/L 9-52 ALKALINE PHOSPHATASE (test 70 UNITS/L 38-126 code=ALKP) [id number] 10:29:00 Test Item Value Reference Range Comments PHOSPHOROUS (test code=PHOS) 3.0 MG/DL 2.5-4.5 [id number] 10:29:00 Test Item Value Reference Range Comments MAGNESIUM (test code=MAG) 2.0 MG/DL 1.6-2.3 LIPOPROTEIN LDL [id number] 10:29:00 Test Item Value Reference Range Comments LIPOPROTEIN LDL DIRECT (test code=LDLDIR) mg/dL 100-129 CPK-MB [id number] 10:29:00 Test Item Value Reference Range Comments CREATINE KINASE (CK) (test code=CK) 51 UNITS/L 30-135 CKMB (test code=CKMBT) 3.07 NG/ML 0.0-5.6 CKMB INDEX (test code=CKMBI) 6.0 % 4.0-4.4 [id number] 10:29:00 Test Item Value Reference Range Comments TROPONIN-I (test code=TROPI) 0.091 NG/ML 0.012-0.033 PROCALCITONIN (PCT)2018-04-14 10:29:00 Test Item Value Reference Range Comments PROCALCITONIN (PCT) (test code=PROCAL) NG/ML LACTIC [id number] 10:08:00 Test Item Value Reference Range Comments LACTIC ACID (test code=LACT) 2.6 MMOL/L 0.7-2.1 CBC W/AUTO [id number] 09:43:00 Test Item Value Reference Range Comments WHITE BLOOD CELL (test code=WBC) 12.1 K/MM3 3.8-9.8 RED BLOOD CELL (test code=RBC) 3.57 M/MM3 3.58-4.97 HEMOGLOBIN (test code=HGB) 10.5 G/DL 11.2-14.9 HEMATOCRIT (test code=HCT) 33.6 % 33.2-43.5 MEAN CELL VOLUME (test code=MCV) 94 fL 80.7-99.1 MEAN CELL HGB (test code=MCH) 29.4 pg 27.0-34.1 MEAN CELL HGB CONCETRATION (test code=MCHC) 31.3 % 32.2-35.7 RED CELL DISTRIBUTION WIDTH (test code=RDW) 18.6 % 12.1-15.2 PLATELET COUNT (test code=PLT) 136 K/MM3 129-368 MEAN PLATELET VOLUME (test code=MPV) 10.4 fl 7.4-10.4 NEUTROPHIL % (test code=NT%) 88.5 % 43-75 IMMATURE GRANULOCYTE % (test code=IG%) 1.1 % 0.0-2.0 LYMPHOCYTE % (test code=LY%) 5.8 % 14-44 MONOCYTE % (test code=MO%) 2.6 % 4-13 EOSINOPHIL % (test code=EO%) 1.7 % 0-6 BASOPHIL % (test code=BA%) 0.3 % 0-2 NUCLEATED RBC % (test code=NRBC%) 0.0 % 0-1.0 NEUTROPHIL # (test code=NT#) 10.7 K/mm3 2.0-7.6 IMMATURE GRANULOCYTE # (test code=IG#) 0.13 x10 3/uL 0-0.03 LYMPHOCYTE # (test code=LY#) 0.7 K/mm3 1.0-3.8 MONOCYTE # (test code=MO#) 0.32 K/mm3 0.1-0.8 EOSINOPHIL # (test code=EO#) 0.2 K/mm3 0.0-0.2 BASOPHIL # (test code=BA#) 0.04 K/mm3 0.0-0.2 NUCLEATED RBC # (test code=NRBC#) 0.0 K/mm3 0.0-0.1 ARTERIAL BLOOD [id number] 08:51:00 Test Item Value Reference Range Comments ARTERIAL BLOOD GAS PH (test code=PHA) 7.41 mmHg 7.35-7.45 ARTERIAL BLOOD GAS PCO2 (test code=PCO2A) 45.4 mmHg 35.0-45.0 ARTERIAL BLOOD GAS PO2 (test code=PO2A) 370.3 mmol/L 80.0-100.0 BICARBONATE TOTAL HCO3 (test code=HCO3) 28.0 mmol/L 20.0-26.0 BASE EXCESS (test code=CHETAN) 2.7 mmol/L -3.0-3.0 ABG O2 SATURATION (test code=SATA) 99.8 % 95.0-100.0 ABG DELIVERY (test code=JESSICA) VENT ABG VENT MODE (test code=MODEA) A/C ABG VENT RESP RATE (test code=RRA) 18.0 /MIN ABG TIDAL VOLUME (test code=TVA) 400 ml ABG PEEP (test code=PEEPA) 5.0 cmH2O ABG TEMPERATURE (test code=TEMPA) 37.0 C >37 ABG SITE (test code=SITEA) LR ALLENS TEST (test code=ALLENS) Y CHECK FIO2 (test code=COHBGFFIO2) 80 % - XR CHEST [id number] 08:07:00 Patient Name: DALJIT JOHNSON Unit No: [id number] EXAMS: CPT CODE: [id number] XR CHEST 1V [id number] Location: U19. CHEST, FRONTAL VIEW HISTORY: CODE BLUE FINDINGS: Since 04/12/18, the patient is intubated with endotracheal tube in good position at the level of the aortic arch just above the martinez. The lungs are emphysematous and clear. The heart size is normal. Aorta is partially calcified. Left IJ catheter remains within the SVC. Right-sided PICC line in the right atrium and right ventricle. The bones are intact. Several wires overlie the chest. IMPRESSION: Intubated with endotracheal tube in good position. Emphysema. Improving vascular congestion and pleural effusions. at 0807 Reported and signed by: Varsha Recinos MD CC: Cas Greene MD Technologist: Katia Slater , RT (R) Transcrpt Date/Tm/Trnsp: 2018 (0807) [email or web address] Orig Print D/T: S: 04/14/2018 (0810) [facility] NAME: DALJIT JOHNSON [address] PHYS: [place] [address] : 1930 AGE: 88 SEX: F LOC: Z.I12 A PHONE #: [phone] EXAM DATE: 04/14/2018 STATUS: ADM IN FAX #: [phone] RADIOLOGY NO: PAGE 1 Signed ReportGLUCOSE BEDSIDE [id number] 07:26:00 Test Item Value Reference Range Comments GLUCOSE BEDSIDE TESTING (test code=GLUBED) 97 MG/DL 60-99 BASIC METABOLIC [id number] 06:28:00 Test Item Value Reference Range Comments SODIUM (test code=NA) 128 MMOL/L 137-145 POTASSIUM (test code=K) 3.8 MMOL/L 3.5-5.1 CHLORIDE (test code=CL) 94 MMOL/L 98-107 CARBON DIOXIDE (test code=CO2) 26 MMOL/L 22-30 ANION GAP (test code=GAP) 12 MMOL/L 14-24 GLUCOSE (test code=GLU) 94 MG/DL 74-106 BLOOD UREA NITROGEN (test 16 MG/DL 7-17 code=BUN) GLOMERULAR FILTRATION RATE 14 Reporting units: ml/min/1.73 (test code=GFR) m2 (Modified MDRD Formula)Reference Range: > or=60 ml/min/1.73 m2 CREATININE (test code=CREAT) 3.20 MG/DL 0.52-1.04 CALCIUM (test code=CA) 8.7 MG/DL 8.4-10.2 [id number] 06:28:00 Test Item Value Reference Range Comments PHOSPHOROUS (test code=PHOS) 3.5 MG/DL 2.5-4.5 [id number] 06:28:00 Test Item Value Reference Range Comments MAGNESIUM (test code=MAG) 1.9 MG/DL 1.6-2.3 CBC W/AUTO [id number] 05:47:00 Test Item Value Reference Range Comments WHITE BLOOD CELL (test code=WBC) 4.9 K/MM3 3.8-9.8 RED BLOOD CELL (test code=RBC) 3.10 M/MM3 3.58-4.97 HEMOGLOBIN (test code=HGB) 8.9 G/DL 11.2-14.9 HEMATOCRIT (test code=HCT) 29.4 % 33.2-43.5 MEAN CELL VOLUME (test code=MCV) 95 fL 80.7-99.1 MEAN CELL HGB (test code=MCH) 28.7 pg 27.0-34.1 MEAN CELL HGB CONCETRATION (test code=MCHC) 30.3 % 32.2-35.7 RED CELL DISTRIBUTION WIDTH (test code=RDW) 18.4 % 12.1-15.2 PLATELET COUNT (test code=PLT) 123 K/MM3 129-368 MEAN PLATELET VOLUME (test code=MPV) 10.4 fl 7.4-10.4 NEUTROPHIL % (test code=NT%) 66.4 % 43-75 IMMATURE GRANULOCYTE % (test code=IG%) 0.2 % 0.0-2.0 LYMPHOCYTE % (test code=LY%) 13.3 % 14-44 MONOCYTE % (test code=MO%) 12.1 % 4-13 EOSINOPHIL % (test code=EO%) 7.4 % 0-6 BASOPHIL % (test code=BA%) 0.6 % 0-2 NUCLEATED RBC % (test code=NRBC%) 0.0 % 0-1.0 NEUTROPHIL # (test code=NT#) 3.2 K/mm3 2.0-7.6 IMMATURE GRANULOCYTE # (test code=IG#) 0.01 x10 3/uL 0-0.03 LYMPHOCYTE # (test code=LY#) 0.7 K/mm3 1.0-3.8 MONOCYTE # (test code=MO#) 0.59 K/mm3 0.1-0.8 EOSINOPHIL # (test code=EO#) 0.4 K/mm3 0.0-0.2 BASOPHIL # (test code=BA#) 0.03 K/mm3 0.0-0.2 NUCLEATED RBC # (test code=NRBC#) 0.0 K/mm3 0.0-0.1 - XR CHEST [id number] 08:19:00 Patient Name: DALJIT JOHNSON Unit No: [id number] EXAMS: CPT CODE: [id number] XR CHEST 1V 22218 LOCATION: T18 EXAM: CHEST 1 VIEW INDICATION: follow up COMPARISON: Chest x-ray April 10, 2018 TECHNIQUE: AP chest radiograph. FINDINGS: Small bilateral pleural effusions and central vascular congestive changes. Interval improvement from the previous exam. Left IJ dialysis catheter and right AICD is unchanged. Left retrograde opacity is unchanged. Dense vascular calcification throughout the aorta. Heart and mediastinum are normal in size and contour. Bones and peripheral soft tissues are unchanged. IMPRESSION: Small bilateral pleural effusions and central vascular congestion. Interval improvement from the previous exam. Unchanged left retrocardiac opacity. at 0819 Reported and signed by: Hanane Landeros MD CC: Cas Aguayo; Elodia Carrera NP Technologist: Jason Renee, RT(R) Transcrpt Date/Tm/Trnsp: 04/12/2018 (08) [email or web address] Orig Print D/T: S: 04/12/2018 (08) [facility] NAME: DALJIT JOHNSON [facility] [address] PHYS: [place] [address] : 1930 AGE: 88 SEX: F LOC: Z.358 A PHONE #: [phone] EXAM DATE: STATUS: ADM IN FAX #: [phone] RADIOLOGY NO: PAGE 1 Signed ReportBASIC METABOLIC [id number] 06:15:00 Test Item Value Reference Range Comments SODIUM (test code=NA) 132 MMOL/L 137-145 POTASSIUM (test code=K) 3.9 MMOL/L 3.5-5.1 CHLORIDE (test code=CL) 97 MMOL/L 98-107 CARBON DIOXIDE (test code=CO2) 29 MMOL/L 22-30 GLUCOSE (test code=GLU) 81 MG/DL 74-106 BLOOD UREA NITROGEN (test 13 MG/DL 7-17 code=BUN) GLOMERULAR FILTRATION RATE 20 Reporting units: ml/min/1.73 (test code=GFR) m2 (Modified MDRD Formula)Reference Range: > or=60 ml/min/1.73 m2 CREATININE (test code=CREAT) 2.30 MG/DL 0.52-1.04 CALCIUM (test code=CA) 8.5 MG/DL 8.4-10.2 CBC W/AUTO [id number] 06:01:00 Test Item Value Reference Range Comments WHITE BLOOD CELL (test code=WBC) 5.1 K/MM3 3.8-9.8 RED BLOOD CELL (test code=RBC) 3.17 M/MM3 3.58-4.97 HEMOGLOBIN (test code=HGB) 9.2 G/DL 11.2-14.9 HEMATOCRIT (test code=HCT) 30.4 % 33.2-43.5 MEAN CELL VOLUME (test code=MCV) 96 fL 80.7-99.1 MEAN CELL HGB (test code=MCH) 29.0 pg 27.0-34.1 MEAN CELL HGB CONCETRATION (test code=MCHC) 30.3 % 32.2-35.7 RED CELL DISTRIBUTION WIDTH (test code=RDW) 18.6 % 12.1-15.2 PLATELET COUNT (test code=PLT) 116 K/MM3 129-368 MEAN PLATELET VOLUME (test code=MPV) 10.5 fl 7.4-10.4 NEUTROPHIL % (test code=NT%) 66.3 % 43-75 IMMATURE GRANULOCYTE % (test code=IG%) 0.4 % 0.0-2.0 LYMPHOCYTE % (test code=LY%) 14.2 % 14-44 MONOCYTE % (test code=MO%) 11.5 % 4-13 EOSINOPHIL % (test code=EO%) 7.0 % 0-6 BASOPHIL % (test code=BA%) 0.6 % 0-2 NUCLEATED RBC % (test code=NRBC%) 0.0 % 0-1.0 NEUTROPHIL # (test code=NT#) 3.4 K/mm3 2.0-7.6 IMMATURE GRANULOCYTE # (test code=IG#) 0.02 x10 3/uL 0-0.03 LYMPHOCYTE # (test code=LY#) 0.7 K/mm3 1.0-3.8 MONOCYTE # (test code=MO#) 0.59 K/mm3 0.1-0.8 EOSINOPHIL # (test code=EO#) 0.4 K/mm3 0.0-0.2 BASOPHIL # (test code=BA#) 0.03 K/mm3 0.0-0.2 NUCLEATED RBC # (test code=NRBC#) 0.0 K/mm3 0.0-0.1 COMPREHENSIVE METABOLIC [id number] 07:44:00 Test Item Value Reference Range Comments SODIUM (test code=NA) 133 MMOL/L 137-145 POTASSIUM (test code=K) 4.2 MMOL/L 3.5-5.1 CHLORIDE (test code=CL) 98 MMOL/L 98-107 CARBON DIOXIDE (test code=CO2) 26 MMOL/L 22-30 ANION GAP (test code=GAP) 13 MMOL/L 14-24 GLUCOSE (test code=GLU) 75 MG/DL 74-106 BLOOD UREA NITROGEN (test 25 MG/DL 7-17 code=BUN) GLOMERULAR FILTRATION RATE 14 Reporting units: ml/min/1.73 (test code=GFR) m2 (Modified MDRD Formula)Reference Range: > or=60 ml/min/1.73 m2 CREATININE (test code=CREAT) 3.20 MG/DL 0.52-1.04 TOTAL PROTEIN (test code=PROT) 4.6 G/DL 6.3-8.2 ALBUMIN (test code=ALB) 2.7 G/DL 3.5-5.0 CALCIUM (test code=CA) 8.9 MG/DL 8.4-10.2 BILIRUBIN TOTAL (test 0.3 MG/DL 0.2-1.3 code=BILT) SGOT/AST (test code=AST) 18 UNITS/L 14-36 SGPT/ALT (test code=ALT) 31 UNITS/L 9-52 ALKALINE PHOSPHATASE (test 58 UNITS/L 38-126 code=ALKP) [id number] 07:44:00 Test Item Value Reference Range Comments PHOSPHOROUS (test code=PHOS) 4.0 MG/DL 2.5-4.5 [id number] 07:44:00 Test Item Value Reference Range Comments MAGNESIUM (test code=MAG) 1.9 MG/DL 1.6-2.3 B-TYPE NATRIURETIC [id number] 07:38:00 Test Item Value Reference Range Comments B-TYPE NATRIURETIC PEPTIDE (test code=BNP) > 5000.0 PG/ML 0-100 CBC W/AUTO [id number] 07:10:00 Test Item Value Reference Range Comments WHITE BLOOD CELL (test code=WBC) 6.2 K/MM3 3.8-9.8 RED BLOOD CELL (test code=RBC) 3.10 M/MM3 3.58-4.97 HEMOGLOBIN (test code=HGB) 9.2 G/DL 11.2-14.9 HEMATOCRIT (test code=HCT) 29.6 % 33.2-43.5 MEAN CELL VOLUME (test code=MCV) 96 fL 80.7-99.1 MEAN CELL HGB (test code=MCH) 29.7 pg 27.0-34.1 MEAN CELL HGB CONCETRATION (test code=MCHC) 31.1 % 32.2-35.7 RED CELL DISTRIBUTION WIDTH (test code=RDW) 18.6 % 12.1-15.2 PLATELET COUNT (test code=PLT) 105 K/MM3 129-368 MEAN PLATELET VOLUME (test code=MPV) 10.6 fl 7.4-10.4 NEUTROPHIL % (test code=NT%) 76.4 % 43-75 IMMATURE GRANULOCYTE % (test code=IG%) 0.3 % 0.0-2.0 LYMPHOCYTE % (test code=LY%) 9.5 % 14-44 MONOCYTE % (test code=MO%) 9.0 % 4-13 EOSINOPHIL % (test code=EO%) 4.5 % 0-6 BASOPHIL % (test code=BA%) 0.3 % 0-2 NUCLEATED RBC % (test code=NRBC%) 0.0 % 0-1.0 NEUTROPHIL # (test code=NT#) 4.8 K/mm3 2.0-7.6 IMMATURE GRANULOCYTE # (test code=IG#) 0.02 x10 3/uL 0-0.03 LYMPHOCYTE # (test code=LY#) 0.6 K/mm3 1.0-3.8 MONOCYTE # (test code=MO#) 0.56 K/mm3 0.1-0.8 EOSINOPHIL # (test code=EO#) 0.3 K/mm3 0.0-0.2 BASOPHIL # (test code=BA#) 0.02 K/mm3 0.0-0.2 NUCLEATED RBC # (test code=NRBC#) 0.0 K/mm3 0.0-0.1 B-TYPE NATRIURETIC [id number] 07:57:00 Test Item Value Reference Range Comments B-TYPE NATRIURETIC PEPTIDE (test code=BNP) > 5000.0 PG/ML 0-100 BASIC METABOLIC [id number] 07:42:00 Test Item Value Reference Range Comments SODIUM (test code=NA) 134 MMOL/L 137-145 POTASSIUM (test code=K) 3.2 MMOL/L 3.5-5.1 CHLORIDE (test code=CL) 99 MMOL/L 98-107 CARBON DIOXIDE (test code=CO2) 28 MMOL/L 22-30 ANION GAP (test code=GAP) 10 MMOL/L 14-24 GLUCOSE (test code=GLU) 80 MG/DL 74-106 BLOOD UREA NITROGEN (test 19 MG/DL 7-17 code=BUN) GLOMERULAR FILTRATION RATE 20 Reporting units: ml/min/1.73 (test code=GFR) m2 (Modified MDRD Formula)Reference Range: > or=60 ml/min/1.73 m2 CREATININE (test code=CREAT) 2.30 MG/DL 0.52-1.04 CALCIUM (test code=CA) 8.6 MG/DL 8.4-10.2 CBC W/AUTO [id number] 07:17:00 Test Item Value Reference Range Comments WHITE BLOOD CELL (test code=WBC) 6.7 K/MM3 3.8-9.8 RED BLOOD CELL (test code=RBC) 3.24 M/MM3 3.58-4.97 HEMOGLOBIN (test code=HGB) 9.4 G/DL 11.2-14.9 HEMATOCRIT (test code=HCT) 30.7 % 33.2-43.5 MEAN CELL VOLUME (test code=MCV) 95 fL 80.7-99.1 MEAN CELL HGB (test code=MCH) 29.0 pg 27.0-34.1 MEAN CELL HGB CONCETRATION (test code=MCHC) 30.6 % 32.2-35.7 RED CELL DISTRIBUTION WIDTH (test code=RDW) 18.6 % 12.1-15.2 PLATELET COUNT (test code=PLT) 102 K/MM3 129-368 MEAN PLATELET VOLUME (test code=MPV) 10.7 fl 7.4-10.4 NEUTROPHIL % (test code=NT%) 76.5 % 43-75 IMMATURE GRANULOCYTE % (test code=IG%) 0.1 % 0.0-2.0 LYMPHOCYTE % (test code=LY%) 8.7 % 14-44 MONOCYTE % (test code=MO%) 9.1 % 4-13 EOSINOPHIL % (test code=EO%) 5.2 % 0-6 BASOPHIL % (test code=BA%) 0.4 % 0-2 NUCLEATED RBC % (test code=NRBC%) 0.0 % 0-1.0 NEUTROPHIL # (test code=NT#) 5.1 K/mm3 2.0-7.6 IMMATURE GRANULOCYTE # (test code=IG#) 0.01 x10 3/uL 0-0.03 LYMPHOCYTE # (test code=LY#) 0.6 K/mm3 1.0-3.8 MONOCYTE # (test code=MO#) 0.61 K/mm3 0.1-0.8 EOSINOPHIL # (test code=EO#) 0.4 K/mm3 0.0-0.2 BASOPHIL # (test code=BA#) 0.03 K/mm3 0.0-0.2 NUCLEATED RBC # (test code=NRBC#) 0.0 K/mm3 0.0-0.1 - XR CHEST [id number] 06:50:00 Patient Name: DALJIT JOHNSON Unit No: [id number] EXAMS: CPT CODE: [id number] XR CHEST 1V 84324 Exam: Chest portable erect Location: F6 History: follow up Comparison: 04/09/2018 Findings: No change has occurred in the aeration of the lungs. The heart size is enlarged. A pacemaker is in place. The mediastinal silhouette is unremarkable. The bony thorax is intact. The left IJ line remains in place. Impression: Stable chest/no change. at 0650 Reported and signed by : Anthony Baca M.D. CC: Cas Carrera NP Technologist: Desiree Flores (RT ) (AART) Transcrpt Date/Tm/Trnsp: 04/10/2018 (0650) RomyFC Orig Print D/T: S: 04/10/2018 (0654) [facility] NAME: DALJIT JOHNSON [address] PHYS: [place] [address] : 1930 AGE: 88 SEX: F LOC: Z.358 A PHONE #: [phone] EXAM DATE: 04/10/2018 STATUS: ADM IN FAX #: [phone] RADIOLOGY NO: PAGE 1 Signed Report- XR CHEST [id number] 09:10:00 Patient Name: DALJIT JOHNSON Unit No: [id number] EXAMS: CPT CODE: [id number] XR CHEST 1V 38428 LOCATION: T18 EXAM: CHEST 1 VIEW INDICATION: FOLLOW UP COMPARISON: Chest x-ray April 08, 2018 TECHNIQUE: AP chest radiograph. FINDINGS: Bilateral airspace opacity with slight improvement on the right. Small layering bilateral pleural effusions again noted. Left IJ dialysis catheter in stable position. Right AICD is again noted. The heart is mildly enlarged. Bones and peripheral soft tissues are unchanged. IMPRESSION: Bilateral airspace opacity with slight improvement on the right. Small layering pleural effusions without significant change.Mild cardiomegaly. Electronically Signed by Hanane Landeros MD on 2018 at 0910 Reported and signed by: Hanane Landeros MD CC: Cas Aguayo; Elodia Carrera NP Technologist: RT Grace(R) Transcrpt Date/Tm/Trnsp: 04/09/2018 (09) [email or web address] Orig Print D/T: S: 04/09/2018 (0914) [facility] NAME: DALJIT JOHNSON [facility] [address] PHYS: [facility]. [place] [address] : 1930 AGE : 88 SEX: F LOC : Z.358 A PHONE #: [phone] EXAM DATE: 04/09/2018 STATUS : ADM IN FAX #: [phone] RADIOLOGY NO: PAGE 1 Signed ReportBASIC METABOLIC [id number] 05:02:00 Test Item Value Reference Range Comments SODIUM (test code=NA) 132 MMOL/L 137-145 POTASSIUM (test code=K) 4.0 MMOL/L 3.5-5.1 CHLORIDE (test code=CL) 98 MMOL/L 98-107 CARBON DIOXIDE (test code=CO2) 25 MMOL/L 22-30 ANION GAP (test code=GAP) 13 MMOL/L 14-24 GLUCOSE (test code=GLU) 101 MG/DL 74-106 BLOOD UREA NITROGEN (test 34 MG/DL 7-17 code=BUN) GLOMERULAR FILTRATION RATE 16 Reporting units: ml/min/1.73 (test code=GFR) m2 (Modified MDRD Formula)Reference Range: > or=60 ml/min/1.73 m2 CREATININE (test code=CREAT) 2.80 MG/DL 0.52-1.04 CALCIUM (test code=CA) 8.6 MG/DL 8.4-10.2 CBC W/AUTO [id number] 04:51:00 Test Item Value Reference Range Comments WHITE BLOOD CELL (test code=WBC) 6.2 K/MM3 3.8-9.8 RED BLOOD CELL (test code=RBC) 3.13 M/MM3 3.58-4.97 HEMOGLOBIN (test code=HGB) 9.1 G/DL 11.2-14.9 HEMATOCRIT (test code=HCT) 28.9 % 33.2-43.5 MEAN CELL VOLUME (test code=MCV) 92 fL 80.7-99.1 MEAN CELL HGB (test code=MCH) 29.1 pg 27.0-34.1 MEAN CELL HGB CONCETRATION (test code=MCHC) 31.5 % 32.2-35.7 RED CELL DISTRIBUTION WIDTH (test code=RDW) 18.6 % 12.1-15.2 PLATELET COUNT (test code=PLT) 96 K/MM3 129-368 MEAN PLATELET VOLUME (test code=MPV) 10.6 fl 7.4-10.4 NEUTROPHIL % (test code=NT%) 72.7 % 43-75 IMMATURE GRANULOCYTE % (test code=IG%) 0.5 % 0.0-2.0 LYMPHOCYTE % (test code=LY%) 11.2 % 14-44 MONOCYTE % (test code=MO%) 9.1 % 4-13 EOSINOPHIL % (test code=EO%) 6.0 % 0-6 BASOPHIL % (test code=BA%) 0.5 % 0-2 NUCLEATED RBC % (test code=NRBC%) 0.0 % 0-1.0 NEUTROPHIL # (test code=NT#) 4.5 K/mm3 2.0-7.6 IMMATURE GRANULOCYTE # (test code=IG#) 0.03 x10 3/uL 0-0.03 LYMPHOCYTE # (test code=LY#) 0.7 K/mm3 1.0-3.8 MONOCYTE # (test code=MO#) 0.56 K/mm3 0.1-0.8 EOSINOPHIL # (test code=EO#) 0.4 K/mm3 0.0-0.2 BASOPHIL # (test code=BA#) 0.03 K/mm3 0.0-0.2 NUCLEATED RBC # (test code=NRBC#) 0.0 K/mm3 0.0-0.1 RECOLLECTION NEEDED ON 04/09/18 AT 0431 BY ANDREEASON: SPECIMEN CLOTTEDNOTIFIED PATIENT CARE STAFF: JI T- XR CHEST [id number] 07:47:00 Patient Name: DALJIT JOHNSON Unit No: [id number] EXAMS: CPT CODE: [id number] XR CHEST 1V 85556 EXAM: Portable chest x-ray Location: B2 COMPARISON: Chest x-ray on 04/04/2018 INDICATION: follow up DISCUSSION: The left IJ central venous catheter is in place, with tip over the appropriate position. A dual-lead cardiac pacing device is in place. Small bilateral pleural effusions are noted. There is bilateral retrocardiac consolidation, either due to atelectasis, pneumonia, or a combination of these. No acute bony abnormalities are identified. IMPRESSION: 1. Increasing bilateral retrocardiac consolidation, most likely due to worsening atelectasis. 2. Small bilateral pleural effusions, probably slightly increased. at 0747 Reported and signed by: Albert Turk MD CC: Cas Aguayo; Elodia Carrera NP Technologist: Sandra Greenfield, RT(R) Transcrpt Date/Tm/Trnsp: 04/08/2018 (0747) [email or web address] Orig Print D/T: S: 2018 (0750) [facility] NAME: DALJIT JOHNSON [address] PHYS: [facility] [place] [address] : 1930 AGE: 88 SEX: F LOC: Z.347 A PHONE #: [phone] EXAM DATE: 04/08/2018 STATUS: ADM IN FAX #: [phone] RADIOLOGY NO: PAGE 1 Signed ReportB-TYPE NATRIURETIC [id number] 06:08:00 Test Item Value Reference Range Comments B-TYPE NATRIURETIC PEPTIDE (test code=BNP) > 5000.0 PG/ML 0-100 BASIC METABOLIC [id number] 05:57:00 Test Item Value Reference Range Comments SODIUM (test code=NA) 133 MMOL/L 137-145 POTASSIUM (test code=K) 3.6 MMOL/L 3.5-5.1 CHLORIDE (test code=CL) 100 MMOL/L 98-107 CARBON DIOXIDE (test code=CO2) 27 MMOL/L 22-30 ANION GAP (test code=GAP) 10 MMOL/L 14-24 GLUCOSE (test code=GLU) 104 MG/DL 74-106 BLOOD UREA NITROGEN (test 26 MG/DL 7-17 code=BUN) GLOMERULAR FILTRATION RATE 22 Reporting units: ml/min/1.73 (test code=GFR) m2 (Modified MDRD Formula)Reference Range: > or=60 ml/min/1.73 m2 CREATININE (test code=CREAT) 2.10 MG/DL 0.52-1.04 CALCIUM (test code=CA) 8.2 MG/DL 8.4-10.2 CBC W/AUTO [id number] 05:51:00 Test Item Value Reference Range Comments WHITE BLOOD CELL (test code=WBC) 6.1 K/MM3 3.8-9.8 RED BLOOD CELL (test code=RBC) 3.10 M/MM3 3.58-4.97 HEMOGLOBIN (test code=HGB) 9.0 G/DL 11.2-14.9 HEMATOCRIT (test code=HCT) 29.0 % 33.2-43.5 MEAN CELL VOLUME (test code=MCV) 94 fL 80.7-99.1 MEAN CELL HGB (test code=MCH) 29.0 pg 27.0-34.1 MEAN CELL HGB CONCETRATION (test code=MCHC) 31.0 % 32.2-35.7 RED CELL DISTRIBUTION WIDTH (test code=RDW) 18.8 % 12.1-15.2 PLATELET COUNT (test code=PLT) 118 K/MM3 129-368 MEAN PLATELET VOLUME (test code=MPV) 10.7 fl 7.4-10.4 NEUTROPHIL % (test code=NT%) 78.4 % 43-75 IMMATURE GRANULOCYTE % (test code=IG%) 0.3 % 0.0-2.0 LYMPHOCYTE % (test code=LY%) 9.1 % 14-44 MONOCYTE % (test code=MO%) 8.3 % 4-13 EOSINOPHIL % (test code=EO%) 3.4 % 0-6 BASOPHIL % (test code=BA%) 0.5 % 0-2 NUCLEATED RBC % (test code=NRBC%) 0.0 % 0-1.0 NEUTROPHIL # (test code=NT#) 4.8 K/mm3 2.0-7.6 IMMATURE GRANULOCYTE # (test code=IG#) 0.02 x10 3/uL 0-0.03 LYMPHOCYTE # (test code=LY#) 0.6 K/mm3 1.0-3.8 MONOCYTE # (test code=MO#) 0.51 K/mm3 0.1-0.8 EOSINOPHIL # (test code=EO#) 0.2 K/mm3 0.0-0.2 BASOPHIL # (test code=BA#) 0.03 K/mm3 0.0-0.2 NUCLEATED RBC # (test code=NRBC#) 0.0 K/mm3 0.0-0.1 HGB [id number] 21:32:00 Test Item Value Reference Range Comments HEMOGLOBIN (test code=HGB) 9.0 G/DL 11.2-14.9 HEMATOCRIT (test code=HCT) 29.0 % 33.2-43.5 Comments to [employer] Supervisor: POST TRANSFUSIONBASIC METABOLIC [id number] 06:06: 00 Test Item Value Reference Range Comments SODIUM (test code=NA) 135 MMOL/L 137-145 POTASSIUM (test code=K) 3.5 MMOL/L 3.5-5.1 CHLORIDE (test code=CL) 101 MMOL/L 98-107 CARBON DIOXIDE (test code=CO2) 27 MMOL/L 22-30 ANION GAP (test code=GAP) 11 MMOL/L 14-24 GLUCOSE (test code=GLU) 93 MG/DL 74-106 BLOOD UREA NITROGEN (test 51 MG/DL 7-17 code=BUN) GLOMERULAR FILTRATION RATE 15 Reporting units: ml/min/1.73 (test code=GFR) m2 (Modified MDRD Formula)Reference Range: > or=60 ml/min/1.73 m2 CREATININE (test code=CREAT) 2.90 MG/DL 0.52-1.04 CALCIUM (test code=CA) 8.3 MG/DL 8.4-10.2 [id number] 06:06:00 Test Item Value Reference Range Comments PHOSPHOROUS (test code=PHOS) 2.8 MG/DL 2.5-4.5 [id number] 06:06:00 Test Item Value Reference Range Comments MAGNESIUM (test code=MAG) 2.0 MG/DL 1.6-2.3 B-TYPE NATRIURETIC [id number] 06:05:00 Test Item Value Reference Range Comments B-TYPE NATRIURETIC PEPTIDE (test code=BNP) > 5000.0 PG/ML 0-100 CBC W/AUTO [id number] 05:38:00 Test Item Value Reference Range Comments WHITE BLOOD CELL (test code=WBC) 7.2 K/MM3 3.8-9.8 RED BLOOD CELL (test code=RBC) 2.55 M/MM3 3.58-4.97 HEMOGLOBIN (test code=HGB) 7.3 G/DL 11.2-14.9 HEMATOCRIT (test code=HCT) 23.8 % 33.2-43.5 MEAN CELL VOLUME (test code=MCV) 93 fL 80.7-99.1 MEAN CELL HGB (test code=MCH) 28.6 pg 27.0-34.1 MEAN CELL HGB CONCETRATION (test code=MCHC) 30.7 % 32.2-35.7 RED CELL DISTRIBUTION WIDTH (test code=RDW) 19.0 % 12.1-15.2 PLATELET COUNT (test code=PLT) 126 K/MM3 129-368 MEAN PLATELET VOLUME (test code=MPV) 10.4 fl 7.4-10.4 NEUTROPHIL % (test code=NT%) 75.6 % 43-75 IMMATURE GRANULOCYTE % (test code=IG%) 0.6 % 0.0-2.0 LYMPHOCYTE % (test code=LY%) 13.0 % 14-44 MONOCYTE % (test code=MO%) 8.9 % 4-13 EOSINOPHIL % (test code=EO%) 1.5 % 0-6 BASOPHIL % (test code=BA%) 0.4 % 0-2 NUCLEATED RBC % (test code=NRBC%) 0.0 % 0-1.0 NEUTROPHIL # (test code=NT#) 5.4 K/mm3 2.0-7.6 IMMATURE GRANULOCYTE # (test code=IG#) 0.04 x10 3/uL 0-0.03 LYMPHOCYTE # (test code=LY#) 0.9 K/mm3 1.0-3.8 MONOCYTE # (test code=MO#) 0.64 K/mm3 0.1-0.8 EOSINOPHIL # (test code=EO#) 0.1 K/mm3 0.0-0.2 BASOPHIL # (test code=BA#) 0.03 K/mm3 0.0-0.2 NUCLEATED RBC # (test code=NRBC#) 0.0 K/mm3 0.0-0.1 DIFFERENTIAL [id number] 16:20:00 Test Item Value Reference Range Comments RBC MORPHOLOGY REQUIRED (test code=RBCM) ABNORMAL POLYCHROMASIA (test code=POLC) FEW NONE HYPOCHROMIA (test code=HYPO) SLIGHT NONE POIKILOCYTOSIS (test code=POIK) FEW NONE ANISOCYTOSIS (test code=ANISO) SLIGHT NONE MICROCYTOSIS (test code=MICR) FEW NONE PLATELET ESTIMATE (test code=PLTEST) ADEQUATE ADEQUATE PLATELET MORPHOLOGY (test code=PLTMORPH) NORMAL NORMAL HGB [id number] 16:20:00 Test Item Value Reference Range Comments HEMOGLOBIN (test code=HGB) 5.6 G/DL 11.2-14.9 CALLED TO STANFORD Fuentes RN & READBACK ON 04/05/18 AT 0253 BY Gordo Nolan HEMATOCRIT (test code=HCT) 18.3 % 33.2-43.5 CALLED TO STANFORD Fuentes RN & READBACK ON 04/05/18 AT 0253 BY Gordo Nolan [id number] 12:14:00 Test Item Value Reference Range Comments HEMOGLOBIN (test code=HGB) 8.7 G/DL 11.2-14.9 BASIC METABOLIC [id number] 06:02:00 Test Item Value Reference Range Comments SODIUM (test code=NA) 136 MMOL/L 137-145 POTASSIUM (test code=K) 3.5 MMOL/L 3.5-5.1 CHLORIDE (test code=CL) 103 MMOL/L 98-107 CARBON DIOXIDE (test code=CO2) 28 MMOL/L 22-30 ANION GAP (test code=GAP) 9 MMOL/L 14-24 GLUCOSE (test code=GLU) 90 MG/DL 74-106 BLOOD UREA NITROGEN (test 39 MG/DL 7-17 code=BUN) GLOMERULAR FILTRATION RATE 22 Reporting units: ml/min/1.73 (test code=GFR) m2 (Modified MDRD Formula)Reference Range: > or=60 ml/min/1.73 m2 CREATININE (test code=CREAT) 2.10 MG/DL 0.52-1.04 CALCIUM (test code=CA) 8.3 MG/DL 8.4-10.2 PROTHROMBIN [id number] 05:33:00 Test Item Value Reference Range Comments PROTHROMBIN TIME PATIENT (test 12.2 SECONDS 9.6-11.6 code=PTP) INTERNATIONAL NORMAL RATIO 1.2 0.8-1.1 The INR is to be used only (test code=INR) for monitoring oral anticoagulanttherapy. INDICATION INR VALUE 1. Prophylaxis, deep venous thrombosis, including high risk surgery. 2.0 - 3.0 2. Prophylaxis, deep venous thrombosis, hip surgery, treatment for deep venous thrombosis or pulmonary prevention of systemic embolism in patients with valvular heart disease, atrial fibrillation, tissue heart valve, or acute myocardial infarction. 2.0 - 3.0 3. Mechanical prosthesis heart valves, recurrent systemic embolism. 3.0 - 4.5 CBC W/AUTO [id number] 05:15:00 Test Item Value Reference Range Comments WHITE BLOOD CELL (test code=WBC) 9.0 K/MM3 3.8-9.8 RED BLOOD CELL (test code=RBC) 2.67 M/MM3 3.58-4.97 HEMOGLOBIN (test code=HGB) 7.6 G/DL 11.2-14.9 HEMATOCRIT (test code=HCT) 24.0 % 33.2-43.5 MEAN CELL VOLUME (test code=MCV) 90 fL 80.7-99.1 MEAN CELL HGB (test code=MCH) 28.5 pg 27.0-34.1 MEAN CELL HGB CONCETRATION (test code=MCHC) 31.7 % 32.2-35.7 RED CELL DISTRIBUTION WIDTH (test code=RDW) 18.6 % 12.1-15.2 PLATELET COUNT (test code=PLT) 144 K/MM3 129-368 MEAN PLATELET VOLUME (test code=MPV) 11.2 fl 7.4-10.4 NEUTROPHIL % (test code=NT%) 77.0 % 43-75 IMMATURE GRANULOCYTE % (test code=IG%) 0.7 % 0.0-2.0 LYMPHOCYTE % (test code=LY%) 12.7 % 14-44 MONOCYTE % (test code=MO%) 9.1 % 4-13 EOSINOPHIL % (test code=EO%) 0.3 % 0-6 BASOPHIL % (test code=BA%) 0.2 % 0-2 NUCLEATED RBC % (test code=NRBC%) 0.2 % 0-1.0 NEUTROPHIL # (test code=NT#) 7.0 K/mm3 2.0-7.6 IMMATURE GRANULOCYTE # (test code=IG#) 0.06 x10 3/uL 0-0.03 LYMPHOCYTE # (test code=LY#) 1.2 K/mm3 1.0-3.8 MONOCYTE # (test code=MO#) 0.82 K/mm3 0.1-0.8 EOSINOPHIL # (test code=EO#) 0.0 K/mm3 0.0-0.2 BASOPHIL # (test code=BA#) 0.02 K/mm3 0.0-0.2 NUCLEATED RBC # (test code=NRBC#) 0.0 K/mm3 0.0-0.1 [id number] 05:11:00 Test Item Value Reference Range Comments HEMOGLOBIN (test code=HGB) 7.6 G/DL 11.2-14.9 [id number] 01:46:00 Test Item Value Reference Range Comments HEMOGLOBIN (test code=HGB) 8.0 G/DL 11.2-14.9 [id number] 18:54:00 Test Item Value Reference Range Comments HEMOGLOBIN (test code=HGB) 8.6 G/DL 11.2-14.9 GLUCOSE BEDSIDE [id number] 13:33:00 Test Item Value Reference Range Comments GLUCOSE BEDSIDE TESTING (test code=GLUBED) 118 MG/DL 60-99 CHEMISTRY 8 [id number] 13:02:00 Test Item Value Reference Range Comments IONIZED CALCIUM (test MMOL/L 1.12-1.24 code=CAIABG) ISTAT-TCO2 VENOUS (test MMOL/L 23-32 code=TCO2VP) ISTAT-SODIUM (test code=NAP) MMOL/L 137-144 ISTAT-POTASSIUM (test code=KP) MMOL/L 3.1-4.8 ISTAT-CHLORIDE (test code=CLP) MMOL/L 97-108 ISTAT-GLUCOSE (test code=GLUP) MG/DL 60-99 ISTAT-BUN (test code=BUNP) MG/DL 9-21 BEDSIDE CREATININE (test MG/DL 0.6-1.4 code=CREATBED) GLOMERULAR FILTRATION RATE POC 33 32-75 Reporting units: ml/min/1.73 (test code=GFRBED) m2 (Modified MDRD Formula)Reference Range: > or=60 ml/min/1.73 m2 CHEMISTRY 8 [id number] 13:02:00 Test Item Value Reference Range Comments IONIZED CALCIUM (test 1.18 MMOL/L 1.12-1.24 code=CAIABG) ISTAT-TCO2 VENOUS (test 29 MMOL/L 23-32 code=TCO2VP) ISTAT-HEMOGLOBIN (test 9.5 G/DL 11.2-14.9 HGB result is calculated code=HBP) from the HCT ISTAT-HEMATOCRIT (test 28 % 33.2-43.5 code=HCTP) ISTAT-SODIUM (test code=NAP) 138 MMOL/L 137-144 ISTAT-POTASSIUM (test 3.8 MMOL/L 3.1-4.8 code=KP) ISTAT-CHLORIDE (test 98 MMOL/L 97-108 code=CLP) ISTAT-GLUCOSE (test 113 MG/DL 60-99 code=GLUP) ISTAT-BUN (test code=BUNP) 26 MG/DL 9-21 BEDSIDE CREATININE (test 1.5 MG/DL 0.6-1.4 code=CREATBED) GLOMERULAR FILTRATION RATE 33 32-75 Reporting units: ml/min/1.73 POC (test code=GFRBED) m2 (Modified MDRD Formula)Reference Range: > or=60 ml/min/1.73 m2 PROTHROMBIN [id number] 10:58:00 Test Item Value Reference Range Comments PROTHROMBIN TIME PATIENT (test 12.0 SECONDS 9.6-11.6 code=PTP) INTERNATIONAL NORMAL RATIO 1.1 0.8-1.1 The INR is to be used only (test code=INR) for monitoring oral anticoagulanttherapy. INDICATION INR VALUE 1. Prophylaxis, deep venous thrombosis, including high risk surgery. 2.0 - 3.0 2. Prophylaxis, deep venous thrombosis, hip surgery, treatment for deep venous thrombosis or pulmonary prevention of systemic embolism in patients with valvular heart disease, atrial fibrillation, tissue heart valve, or acute myocardial infarction. 2.0 - 3.0 3. Mechanical prosthesis heart valves, recurrent systemic embolism. 3.0 - 4.5 DIFFERENTIAL [id number] 10:58:00 Test Item Value Reference Range Comments RBC MORPHOLOGY REQUIRED (test code=RBCM) ABNORMAL POLYCHROMASIA (test code=POLC) FEW NONE HYPOCHROMIA (test code=HYPO) SLIGHT NONE ANISOCYTOSIS (test code=ANISO) SLIGHT NONE MICROCYTOSIS (test code=MICR) FEW NONE PLATELET ESTIMATE (test code=PLTEST) ADEQUATE ADEQUATE PLATELET MORPHOLOGY (test code=PLTMORPH) NORMAL NORMAL HGB [id number] 10:58:00 Test Item Value Reference Range Comments HEMOGLOBIN (test code=HGB) 6.0 G/DL 11.2-14.9 CALLED TO Sonia BABB HGB=6.0 & READBACK ON 04/05/18 AT 1016 BY Wander Wu HEMATOCRIT (test code=HCT) 19.4 % 33.2-43.5 CALLED TO Sonia BABB HCT=19.4& READBACK ON 04/05/18 AT 1019 BY Wander Wu DIFFERENTIAL [id number] 10:19:00 Test Item Value Reference Range Comments RBC MORPHOLOGY REQUIRED (test code=RBCM) PLATELET ESTIMATE (test code=PLTEST) ADEQUATE PLATELET MORPHOLOGY (test code=PLTMORPH) NORMAL HGB [id number] 10:19:00 Test Item Value Reference Range Comments HEMOGLOBIN (test code=HGB) 6.0 G/DL 11.2-14.9 CALLED TO Sonia BABB HGB=6.0 & READBACK ON 04/05/18 AT 1016 BY Wander Wu HEMATOCRIT (test code=HCT) 19.4 % 33.2-43.5 CALLED TO Sonia BABB HCT=19.4& READBACK ON 04/05/18 AT 1019 BY Wander Wu DIFFERENTIAL [id number] 10:19:00 Test Item Value Reference Range Comments RBC MORPHOLOGY REQUIRED (test code=RBCM) PLATELET ESTIMATE (test code=PLTEST) ADEQUATE PLATELET MORPHOLOGY (test code=PLTMORPH) NORMAL HGB [id number] 10:19:00 Test Item Value Reference Range Comments HEMOGLOBIN (test code=HGB) 6.0 G/DL 11.2-14.9 CALLED TO Sonia BABB HGB=6.0 & READBACK ON 04/05/18 AT 1016 BY Wander Wu HEMATOCRIT (test code=HCT) 19.4 % 33.2-43.5 CALLED TO Sonia BABB HCT=19.4& READBACK ON 04/05/18 AT 1019 BY Wander Wu AB HEPATITIS B [id number] 09:17:00 Test Item Value Reference Range Comments AB HEPATITIS B SURFACE (test POSITIVE code=HBSAB) CLINICAL INTERPRETATION OF IMMUNE STATUS NEGATIVE: Inconsistent with immunity to HBV infection, less than 5.0 mIU/mL POSITIVE: Consistent with immunity to HBV infection, greater than 10.0 mIU/mL * HEPATITIS B SURF AB, [id number] 09:17:00 Test Item Value Reference Range Comments HEPATITIS B SURF AB, > 1000.0 mIU/mL ~~~~~~~~~~~~~~~~~~~~~~~~~~~~ QUANT (test code=HBSABQ) ~~~~~~~~~~~~~~~~~~~~~~~~~~~~ ~~~~INTERPRETIVE DATA: <5.00 mIU/mL : Negative - Patient is considered to be notimmune to infection with HBV. >=5.00 mIU/mL and <12.0 mIU/mL: Indeterminate - Unable todetermine if anti-HBs is present at levels consistent withimmunity. Patient's immune status should be further assessedby considering other clinical information or retestinganother specimen drawn at a later time. >=12.0 mIU/mL: Positive - Anti-HBs detected at >10 mIU/mL.Patient is considered to be immune to infection with HBV. Ithas not been determined what the clinical significance isfor values greater than >=12 mIU/mL, other than theindividual is considered to be immune to HBV infection.~~~~~~~~~~~~~~~~~~ ~~~~~~~~~~~~~~~~~~~~~~~~~~~~ ~~~~~~~~~~~~~~ AG HEPATITIS B [id number] 09:17:00 Test Item Value Reference Range Comments AG HEPATITIS B SURFACE (test code=HBSAG) NEGATIVE NONREACTIVE AB HEPATITIS B [id number] 09:05:00 Test Item Value Reference Range Comments AB HEPATITIS B SURFACE (test code=HBSAB) HEPATITIS B SURF AB, [id number] 09:05:00 Test Item Value Reference Range Comments HEPATITIS B SURF AB, QUANT (test code=HBSABQ) mIU/mL AG HEPATITIS B [id number] 09:05:00 Test Item Value Reference Range Comments AG HEPATITIS B SURFACE (test code=HBSAG) NEGATIVE NONREACTIVE PROTHROMBIN [id number] 07:47:00 Test Item Value Reference Range Comments PROTHROMBIN TIME PATIENT (test 13.7 SECONDS 9.6-11.6 code=PTP) INTERNATIONAL NORMAL RATIO 1.3 0.8-1.1 The INR is to be used only (test code=INR) for monitoring oral anticoagulanttherapy. INDICATION INR VALUE 1. Prophylaxis, deep venous thrombosis, including high risk surgery. 2.0 - 3.0 2. Prophylaxis, deep venous thrombosis, hip surgery, treatment for deep venous thrombosis or pulmonary prevention of systemic embolism in patients with valvular heart disease, atrial fibrillation, tissue heart valve, or acute myocardial infarction. 2.0 - 3.0 3. Mechanical prosthesis heart valves, recurrent systemic embolism. 3.0 - 4.5 CBC W/AUTO [id number] 06:13:00 Test Item Value Reference Range Comments WHITE BLOOD CELL (test 4.4 K/MM3 3.8-9.8 code=WBC) RED BLOOD CELL (test code=RBC) 2.05 M/MM3 3.58-4.97 HEMOGLOBIN (test code=HGB) 5.7 G/DL 11.2-14.9 CALLED TO Maren COYNE & READBACK ON 04/05/18 AT 0612 BY Teresa Cueto HEMATOCRIT (test code=HCT) 18.4 % 33.2-43.5 CALLED TO Maren COYNE & READBACK ON 04/05/18 AT 0612 BY Teresa Cueto MEAN CELL VOLUME (test 90 fL 80.7-99.1 code=MCV) MEAN CELL HGB (test code=MCH) 27.8 pg 27.0-34.1 MEAN CELL HGB CONCETRATION 31.0 % 32.2-35.7 (test code=MCHC) RED CELL DISTRIBUTION WIDTH 18.6 % 12.1-15.2 (test code=RDW) PLATELET COUNT (test code=PLT) 137 K/MM3 129-368 MEAN PLATELET VOLUME (test 11.1 fl 7.4-10.4 code=MPV) NEUTROPHIL % (test code=NT%) 84.9 % 43-75 IMMATURE GRANULOCYTE % (test 0.9 % 0.0-2.0 code=IG%) LYMPHOCYTE % (test code=LY%) 12.2 % 14-44 MONOCYTE % (test code=MO%) 1.8 % 4-13 EOSINOPHIL % (test code=EO%) 0.0 % 0-6 BASOPHIL % (test code=BA%) 0.2 % 0-2 NUCLEATED RBC % (test 0.0 % 0-1.0 code=NRBC%) NEUTROPHIL # (test code=NT#) 3.8 K/mm3 2.0-7.6 IMMATURE GRANULOCYTE # (test 0.04 x10 3/uL 0-0.03 code=IG#) LYMPHOCYTE # (test code=LY#) 0.5 K/mm3 1.0-3.8 MONOCYTE # (test code=MO#) 0.08 K/mm3 0.1-0.8 EOSINOPHIL # (test code=EO#) 0.0 K/mm3 0.0-0.2 BASOPHIL # (test code=BA#) 0.01 K/mm3 0.0-0.2 NUCLEATED RBC # (test 0.0 K/mm3 0.0-0.1 code=NRBC#) BASIC METABOLIC [id number] 04:43:00 Test Item Value Reference Range Comments SODIUM (test code=NA) 134 MMOL/L 137-145 POTASSIUM (test code=K) 4.1 MMOL/L 3.5-5.1 CHLORIDE (test code=CL) 98 MMOL/L 98-107 CARBON DIOXIDE (test code=CO2) 26 MMOL/L 22-30 GLUCOSE (test code=GLU) 147 MG/DL 74-106 BLOOD UREA NITROGEN (test 61 MG/DL 7-17 code=BUN) GLOMERULAR FILTRATION RATE 18 Reporting units: ml/min/1.73 (test code=GFR) m2 (Modified MDRD Formula)Reference Range: > or=60 ml/min/1.73 m2 CREATININE (test code=CREAT) 2.50 MG/DL 0.52-1.04 CALCIUM (test code=CA) 8.4 MG/DL 8.4-10.2 B-TYPE NATRIURETIC [id number] 03:33:00 Test Item Value Reference Range Comments B-TYPE NATRIURETIC PEPTIDE (test code=BNP) > 5000.0 PG/ML 0-100 DIFFERENTIAL [id number] 03:28:00 Test Item Value Reference Range Comments RBC MORPHOLOGY REQUIRED (test code=RBCM) ABNORMAL POLYCHROMASIA (test code=POLC) FEW NONE HYPOCHROMIA (test code=HYPO) SLIGHT NONE POIKILOCYTOSIS (test code=POIK) FEW NONE ANISOCYTOSIS (test code=ANISO) SLIGHT NONE MICROCYTOSIS (test code=MICR) FEW NONE PLATELET ESTIMATE (test code=PLTEST) ADEQUATE ADEQUATE PLATELET MORPHOLOGY (test code=PLTMORPH) NORMAL HGB [id number] 03:28:00 Test Item Value Reference Range Comments HEMOGLOBIN (test code=HGB) 5.6 G/DL 11.2-14.9 CALLED TO STANFORD Fuentes RN & READBACK ON 04/05/18 AT 0253 BY Gordo Nolan HEMATOCRIT (test code=HCT) 18.3 % 33.2-43.5 CALLED TO STANFORD Fuentes RN & READBACK ON 04/05/18 AT 0253 BY Gordo Nolan DIFFERENTIAL [id number] 02:54:00 Test Item Value Reference Range Comments RBC MORPHOLOGY REQUIRED (test code=RBCM) PLATELET ESTIMATE (test code=PLTEST) ADEQUATE PLATELET MORPHOLOGY (test code=PLTMORPH) NORMAL HGB [id number] 02:54:00 Test Item Value Reference Range Comments HEMOGLOBIN (test code=HGB) 5.6 G/DL 11.2-14.9 CALLED TO STANFORD Fuentes RN & READBACK ON 04/05/18 AT 0253 BY Gordo Nolan HEMATOCRIT (test code=HCT) 18.3 % 33.2-43.5 CALLED TO STANFORD Fuentes RN & READBACK ON 04/05/18 AT 0253 BY Gordo Nolan DIFFERENTIAL [id number] 02:54:00 Test Item Value Reference Range Comments RBC MORPHOLOGY REQUIRED (test code=RBCM) PLATELET ESTIMATE (test code=PLTEST) ADEQUATE PLATELET MORPHOLOGY (test code=PLTMORPH) NORMAL HGB [id number] 02:54:00 Test Item Value Reference Range Comments HEMOGLOBIN (test code=HGB) 5.6 G/DL 11.2-14.9 CALLED TO STANFORD Fuentes RN & READBACK ON 04/05/18 AT 0253 BY Gordo Nolan HEMATOCRIT (test code=HCT) 18.3 % 33.2-43.5 CALLED TO STANFORD Fuentes RN & READBACK ON 04/05/18 AT 0253 BY Gordo Nolan CBC W/AUTO [id number] 23:36:00 Test Item Value Reference Range Comments WHITE BLOOD CELL (test 7.5 K/MM3 3.8-9.8 code=WBC) RED BLOOD CELL (test code=RBC) 2.23 M/MM3 3.58-4.97 HEMOGLOBIN (test code=HGB) 6.1 G/DL 11.2-14.9 CALLED TO BLAYNE & READBACK ON 04/04/18 AT 2229 BY Gordo Nolan HEMATOCRIT (test code=HCT) 20.4 % 33.2-43.5 MEAN CELL VOLUME (test 92 fL 80.7-99.1 code=MCV) MEAN CELL HGB (test code=MCH) 27.4 pg 27.0-34.1 MEAN CELL HGB CONCETRATION 29.9 % 32.2-35.7 (test code=MCHC) RED CELL DISTRIBUTION WIDTH 18.0 % 12.1-15.2 (test code=RDW) PLATELET COUNT (test code=PLT) 154 K/MM3 129-368 MEAN PLATELET VOLUME (test 11.6 fl 7.4-10.4 code=MPV) NEUTROPHIL % (test code=NT%) 92.0 % 43-75 IMMATURE GRANULOCYTE % (test 0.5 % 0.0-2.0 code=IG%) LYMPHOCYTE % (test code=LY%) 6.0 % 14-44 MONOCYTE % (test code=MO%) 1.3 % 4-13 EOSINOPHIL % (test code=EO%) 0.1 % 0-6 BASOPHIL % (test code=BA%) 0.1 % 0-2 NUCLEATED RBC % (test 0.0 % 0-1.0 code=NRBC%) NEUTROPHIL # (test code=NT#) 6.9 K/mm3 2.0-7.6 IMMATURE GRANULOCYTE # (test 0.04 x10 3/uL 0-0.03 code=IG#) LYMPHOCYTE # (test code=LY#) 0.5 K/mm3 1.0-3.8 MONOCYTE # (test code=MO#) 0.10 K/mm3 0.1-0.8 EOSINOPHIL # (test code=EO#) 0.0 K/mm3 0.0-0.2 BASOPHIL # (test code=BA#) 0.01 K/mm3 0.0-0.2 NUCLEATED RBC # (test 0.0 K/mm3 0.0-0.1 code=NRBC#) DIFFERENTIAL [id number] 23:36:00 Test Item Value Reference Range Comments RBC MORPHOLOGY REQUIRED (test code=RBCM) ABNORMAL HYPOCHROMIA (test code=HYPO) SLIGHT NONE POIKILOCYTOSIS (test code=POIK) FEW NONE ANISOCYTOSIS (test code=ANISO) SLIGHT NONE MICROCYTOSIS (test code=MICR) FEW NONE TARGET CELLS (test code=TGT) FEW NONE TEAR DROP CELLS (test code=TEAR) FEW NONE PLATELET ESTIMATE (test code=PLTEST) ADEQUATE ADEQUATE PLATELET MORPHOLOGY (test code=PLTMORPH) NORMAL NORMAL PROTHROMBIN [id number] 22:40:00 Test Item Value Reference Range Comments PROTHROMBIN TIME PATIENT (test 16.1 SECONDS 9.6-11.6 code=PTP) INTERNATIONAL NORMAL RATIO 1.5 0.8-1.1 The INR is to be used only (test code=INR) for monitoring oral anticoagulanttherapy. INDICATION INR VALUE 1. Prophylaxis, deep venous thrombosis, including high risk surgery. 2.0 - 3.0 2. Prophylaxis, deep venous thrombosis, hip surgery, treatment for deep venous thrombosis or pulmonary prevention of systemic embolism in patients with valvular heart disease, atrial fibrillation, tissue heart valve, or acute myocardial infarction. 2.0 - 3.0 3. Mechanical prosthesis heart valves, recurrent systemic embolism. 3.0 - 4.5 BASIC METABOLIC [id number] 22:38:00 Test Item Value Reference Range Comments SODIUM (test code=NA) 135 MMOL/L 137-145 POTASSIUM (test code=K) 4.2 MMOL/L 3.5-5.1 CHLORIDE (test code=CL) 99 MMOL/L 98-107 CARBON DIOXIDE (test code=CO2) 27 MMOL/L 22-30 GLUCOSE (test code=GLU) 144 MG/DL 74-106 BLOOD UREA NITROGEN (test 57 MG/DL 7-17 code=BUN) GLOMERULAR FILTRATION RATE 20 Reporting units: ml/min/1.73 (test code=GFR) m2 (Modified MDRD Formula)Reference Range: > or=60 ml/min/1.73 m2 CREATININE (test code=CREAT) 2.30 MG/DL 0.52-1.04 CALCIUM (test code=CA) 8.6 MG/DL 8.4-10.2 HEPATIC FUNCTION [id number] 22:38:00 Test Item Value Reference Range Comments TOTAL PROTEIN (test code=PROT) 5.1 G/DL 6.3-8.2 ALBUMIN (test code=ALB) 2.9 G/DL 3.5-5.0 BILIRUBIN TOTAL (test code=BILT) 0.5 MG/DL 0.2-1.3 BILIRUBIN DIRECT (test code=BILD) 0.0 MG/DL 0.0-0.3 SGOT/AST (test code=AST) 42 UNITS/L 14-36 SGPT/ALT (test code=ALT) 43 UNITS/L 9-52 ALKALINE PHOSPHATASE (test code=ALKP) 78 UNITS/L 38-126 [id number] 22:38:00 Test Item Value Reference Range Comments LIPASE (test code=LIP) 308 UNITS/L 23-300 CBC W/AUTO [id number] 22:36:00 Test Item Value Reference Range Comments WHITE BLOOD CELL (test 7.5 K/MM3 3.8-9.8 code=WBC) RED BLOOD CELL (test code=RBC) 2.23 M/MM3 3.58-4.97 HEMOGLOBIN (test code=HGB) 6.1 G/DL 11.2-14.9 CALLED TO BLAYNE & READKOLBY ON 04/04/18 AT 2229 BY Gordo Nolan HEMATOCRIT (test code=HCT) 20.4 % 33.2-43.5 MEAN CELL VOLUME (test 92 fL 80.7-99.1 code=MCV) MEAN CELL HGB (test code=MCH) 27.4 pg 27.0-34.1 MEAN CELL HGB CONCETRATION 29.9 % 32.2-35.7 (test code=MCHC) RED CELL DISTRIBUTION WIDTH 18.0 % 12.1-15.2 (test code=RDW) PLATELET COUNT (test code=PLT) 154 K/MM3 129-368 MEAN PLATELET VOLUME (test 11.6 fl 7.4-10.4 code=MPV) NEUTROPHIL % (test code=NT%) 92.0 % 43-75 IMMATURE GRANULOCYTE % (test 0.5 % 0.0-2.0 code=IG%) LYMPHOCYTE % (test code=LY%) 6.0 % 14-44 MONOCYTE % (test code=MO%) 1.3 % 4-13 EOSINOPHIL % (test code=EO%) 0.1 % 0-6 BASOPHIL % (test code=BA%) 0.1 % 0-2 NUCLEATED RBC % (test 0.0 % 0-1.0 code=NRBC%) NEUTROPHIL # (test code=NT#) 6.9 K/mm3 2.0-7.6 IMMATURE GRANULOCYTE # (test 0.04 x10 3/uL 0-0.03 code=IG#) LYMPHOCYTE # (test code=LY#) 0.5 K/mm3 1.0-3.8 MONOCYTE # (test code=MO#) 0.10 K/mm3 0.1-0.8 EOSINOPHIL # (test code=EO#) 0.0 K/mm3 0.0-0.2 BASOPHIL # (test code=BA#) 0.01 K/mm3 0.0-0.2 NUCLEATED RBC # (test 0.0 K/mm3 0.0-0.1 code=NRBC#) DIFFERENTIAL [id number] 22:36:00 Test Item Value Reference Range Comments RBC MORPHOLOGY REQUIRED (test code=RBCM) PLATELET ESTIMATE (test code=PLTEST) ADEQUATE PLATELET MORPHOLOGY (test code=PLTMORPH) NORMAL CBC W/AUTO [id number] 22:36:00 Test Item Value Reference Range Comments WHITE BLOOD CELL (test 7.5 K/MM3 3.8-9.8 code=WBC) RED BLOOD CELL (test code=RBC) 2.23 M/MM3 3.58-4.97 HEMOGLOBIN (test code=HGB) 6.1 G/DL 11.2-14.9 CALLED TO BLAYNE & READBACK ON 04/04/18 AT 2229 BY Gordo Nolan HEMATOCRIT (test code=HCT) 20.4 % 33.2-43.5 MEAN CELL VOLUME (test 92 fL 80.7-99.1 code=MCV) MEAN CELL HGB (test code=MCH) 27.4 pg 27.0-34.1 MEAN CELL HGB CONCETRATION 29.9 % 32.2-35.7 (test code=MCHC) RED CELL DISTRIBUTION WIDTH 18.0 % 12.1-15.2 (test code=RDW) PLATELET COUNT (test code=PLT) 154 K/MM3 129-368 MEAN PLATELET VOLUME (test 11.6 fl 7.4-10.4 code=MPV) NEUTROPHIL % (test code=NT%) 92.0 % 43-75 IMMATURE GRANULOCYTE % (test 0.5 % 0.0-2.0 code=IG%) LYMPHOCYTE % (test code=LY%) 6.0 % 14-44 MONOCYTE % (test code=MO%) 1.3 % 4-13 EOSINOPHIL % (test code=EO%) 0.1 % 0-6 BASOPHIL % (test code=BA%) 0.1 % 0-2 NUCLEATED RBC % (test 0.0 % 0-1.0 code=NRBC%) NEUTROPHIL # (test code=NT#) 6.9 K/mm3 2.0-7.6 IMMATURE GRANULOCYTE # (test 0.04 x10 3/uL 0-0.03 code=IG#) LYMPHOCYTE # (test code=LY#) 0.5 K/mm3 1.0-3.8 MONOCYTE # (test code=MO#) 0.10 K/mm3 0.1-0.8 EOSINOPHIL # (test code=EO#) 0.0 K/mm3 0.0-0.2 BASOPHIL # (test code=BA#) 0.01 K/mm3 0.0-0.2 NUCLEATED RBC # (test 0.0 K/mm3 0.0-0.1 code=NRBC#) DIFFERENTIAL [id number] 22:36:00 Test Item Value Reference Range Comments RBC MORPHOLOGY REQUIRED (test code=RBCM) PLATELET ESTIMATE (test code=PLTEST) ADEQUATE PLATELET MORPHOLOGY (test code=PLTMORPH) NORMAL - XR CHEST [id number] 22:34:00 Patient Name: DALJIT JOHNSON Unit No: [id number] EXAMS: CPT CODE: [id number] XR CHEST 1V [id number] AFTER HOURS SERVICE ON: 04/04/2018 10:33 PM AP Portable Chest Location Code M12 HISTORY: sob FINDINGS: Thereare no infiltrates. There are tiny bilateral pleural effusions. There is no pneumothorax. Cardiac silhouette is mildly enlarged. Left-sided IJ catheter projects over the distal SVC.. IMPRESSION: Tiny bilateral pleural effusions. Mildly enlarged cardiac silhouette. at 2234 Reported and signed by: Julio Olivarez M.D. CC: Christopher Mcpherson MD Technologist: Olive Padilla (RT) Transcrpt Date/Tm/Trnsp: 04/04/2018 (2233) [email or web address] Orig Print D/T: S: ([id number])[facility] NAME: DALJIT JOHNSON [id number] PHYS: GAIL.[place] - [place] [address] : 3AGE: 88 SEX: F LOC: [facility] PHONE #: [phone] EXAM DATE: 04/04/2018 STATUS: REG ER FAX #: [phone] RADIOLOGY NO: PAGE 1 Signed Report
[2018-04-28 10:11] LABS: Absolute Lymphocytes (CBC) 1.4 K/uL (0.7-4.9); Absolute Monocytes 0.8 K/uL (0.1-1.3); Absolute Neutrophil 7.6 K/uL (1.8-8.0); Basophils % 0.6 % (0-1.3); Eosinophils % 1.9 % (0-4.4); Hematocrit 31.6 % (36.0-45.0); Lymphocytes % 13.9 % (15.3-44.8); MPV 7.8 fL (7.6-11.3); RBC Red Blood Cell Count 3.41 M/uL (3.86-4.86)
--- NOTE | 2018-04-28 10:56 | RAD REPORT ---
EXAM DESCRIPTION: RAD - Chest Single View - 04/28/2018 10:50 am CLINICAL HISTORY: DYSPNEA Chest pain. COMPARISON: Chest Single View dated 04/04/2018; Chest Single View dated 03/18/2018; Chest Single View dated 03/18/2018; Chest Single View dated 03/17/2018 FINDINGS: Portable technique limits examination quality. A portion of the left and right lung apices are obscured by the patient's chin. Mild interstitial pulmonary edema is seen. Trace pleural effusions are present bilaterally. The heart is moderately enlarged in size with a multi lead pacer device present. Aortic atherosclerosis. IMPRESSION: Mild CHF.
[2018-04-28 10:58] LABS: Anisocytosis 2+; Blood Morphology Comment NOTED (NOT SEEN); Platelet Estimate ADEQ
--- NOTE | 2018-04-28 11:18 | EDPHYS ---
Physician Documentation [facility] Name: Bárbara Thakkar Age: 88 yrs Sex: Female : 1930 Arrival Date: 04/28/2018 Time: 09:25 Bed 5 Private MD: ED Physician Tommie Conley HPI: 04/28 09:30 This 88 yrs old Female presents to ER via EMS with complaints of Shortness Of rn Breath. 09:30 The patient has shortness of breath at rest. Onset: The symptoms/episode began/occurred rn this morning. Duration: The symptoms are continuous. The patient's shortness of breath is aggravated by light activity, is alleviated by nothing. Severity of symptoms: At their worst the symptoms were moderate in the emergency department the symptoms are unchanged. The patient has experienced similar episodes in the past. Reports sob since this morning, no chest pain, reports supposed to get dialysis today, recently admitted to [facility] for similar symptoms, experienced cardiac arrest. Denies fever. . Historical: - Allergies: 09:28 acetylcysteine; aa5 09:28 Ciprofloxacin; aa5 09:28 Iodinated Contrast Media - IV Dye; aa5 09:28 PENICILLINS; aa5 - PMHx: 09:28 COPD; ESRD; Hemodialysis-MWF; High Cholesterol; Hypertension; Pacemaker; aa5 - PSHx: 09:28 Dialysis catheter to left upper chest; Pacemaker; aa5 - Immunization history:: Adult Immunizations. - Ebola Screening: : No symptoms or risks identified at this time. - Family history:: not pertinent. - Social history:: Smoking status: . - Hospitalizations: : Patient was recently seen at. ROS: 09:30 Constitutional: Negative for fever, chills, and weight loss, Eyes: Negative for injury, rn pain, redness, and discharge, Neck: Negative for injury, pain, and swelling, Cardiovascular: Negative for chest pain, palpitations Respiratory: + sob Abdomen/GI: Negative for abdominal pain, nausea, vomiting, diarrhea, and constipation, MS/Extremity: Negative for injury and deformity, Skin: Negative for injury, rash, and discoloration, Neuro: + generalized weakness. Exam: 09:30 Constitutional: Elderly female, + mild respiratory distress Head/Face: Normocephalic, rn atraumatic. Eyes: Pupils equal round and reactive to light, extra-ocular motions intact. Lids and lashes normal. Conjunctiva and sclera are non-icteric and not injected. Cornea within normal limits. Periorbital areas with no swelling, redness, or edema. ENT: dry MM, no stridor Neck: Trachea midline, no thyromegaly or masses palpated, and no cervical lymphadenopathy. Supple, full range of motion without nuchal rigidity, or vertebral point tenderness. No Meningismus. Cardiovascular: Irregular, no murmur Respiratory: + moderate tachypnea with diminished breath sounds bilaterally Abdomen/GI: soft, non-tender Skin: Warm, dry MS/ Extremity: Pulses equal, no cyanosis. + 1+ pitting edema bilateral lower ext with equal circumference. Neuro: Awake and alert, GCS 15, oriented to person, place, and situation. Motor strength 5/5 in all extremities. Sensory grossly intact. Vital Signs: 09:27 BP 145 / 70; Pulse 85; Resp 36 S; Temp 96.6(TE); Pulse Ox 100% on Nebulizer Mask; aa5 09:37 BP 136 / 62; Pulse 81; Resp 20 A; Pulse Ox 100% on BiPAP; aa5 10:57 BP 123 / 51; Pulse 66; Resp 27; Pulse Ox 100% on BiPAP; sg 12:30 BP 122 / 66; Pulse 70; Resp 17; Temp 97.4; Pulse Ox 100% on BiPAP; sg 12:43 Weight 55.34 kg (R); sg 13:30 BP 142 / 65; Pulse 70; Resp 18; Pulse Ox 100% on BiPAP; tw2 14:41 BP 136 / 62; Pulse 74; Resp 24; Pulse Ox 99% on BiPAP; tw2 MDM: 09:26 Patient medically screened. rn 11:15 Differential diagnosis: Bronchitis CHF exacerbation, Chronic Obstructive Pulmonary rn Disease Myocardial Infarction pneumonia, Pneumothorax pulmonary edema. Data reviewed: vital signs, nurses notes, lab test result(s), EKG, radiologic studies, plain films, and as a result, I will admit patient. Counseling: I had a detailed discussion with the patient and/or guardian regarding: the historical points, exam findings, and any diagnostic results supporting the discharge/admit diagnosis, lab results, radiology results, the need for further work-up and treatment in the hospital. Response to treatment: the patient's symptoms have markedly improved after treatment, and as a result, I will admit patient. Admission orders: after a detailed discussion of the patient's condition and case, the admit orders are written by me. ED course: Pt markedly improved on bipap, feels much better, is resting, admitted to Dr. Cueto for further care. . 04/28 09:27 Order name: Blood Culture Adult (2) rn 04/28 09:27 Order name: BMP; Complete Time: 11:45 rn 04/28 09:27 Order name: CBC with Diff; Complete Time: 11: rn 04/28 09:27 Order name: NT PRO-BNP; Complete Time: 11:45 rn 04/28 09:27 Order name: PT-INR; Complete Time: 11: rn 04/28 09:27 Order name: Ptt, Activated; Complete Time: 11: rn 04/28 09:27 Order name: XRAY CXR (1 view); Complete Time: 11: rn 04/28 09:27 Order name: Troponin (emerg Dept Use Only); Complete Time: 11:45 rn 04/28 09:27 Order name: EKG; Complete Time: 09:28 rn 04/28 09:27 Order name: BIPAP rn 04/28 09:28 Order name: Flu; Complete Time: 11: rn 04/28 10:58 Order name: Manual Differential; Complete Time: 11:10 EDDE 04/28 09:27 Order name: Cardiac monitoring; Complete Time: 09:28 rn 04/28 09:27 Order name: EKG - Nurse/Tech; Complete Time: 09:40 rn 04/28 09:27 Order name: IV Saline Lock; Complete Time: 09:40 rn 04/28 09:27 Order name: Labs collected and sent; Complete Time: 11:14 rn 04/28 09:27 Order name: O2 Per Protocol; Complete Time: 09:28 rn 04/28 09:27 Order name: O2 Sat Monitoring; Complete Time: 09:28 rn 04/28 12:00 Order name: CONS Physician Consult EDDE 04/28 12:00 Order name: Physical Therapy Consult [facility] 04/28 12:01 Order name: Heart Healthy EDDE Administered Medications: 09:30 Drug: SOLU-Medrol 125 mg Route: IVP; Site: left antecubital; aa5 09:40 Follow up: Response: No adverse reaction aa5 09:30 Drug: Xopenex (3) 1.25 mg Route: Inhalation; aa5 Disposition: 11:15 Critical Care:. rn Disposition: 04/28/18 11:17 Hospitalization ordered by Tara Cueto for Inpatient Admission. Preliminary diagnosis are Pleural effusion, not elsewhere classified, Pulmonary edema, End stage renal disease, Chronic obstructive pulmonary disease, unspecified. - Bed requested for Telemetry/MedSurg (Inpatient). - Status is Inpatient Admission. tw2 - Condition is Stable. - Problem is new. - Symptoms have improved. UTI on Admission? No Critical care time excluding procedures: 11:15 Critical care time: Bedside Care: 30 minutes. Total time: 30 minutes rn Signatures: Dispatcher [employer] EDMS Tatianna Frias Steven, RN RN sg Tommie Conley MD MD rn Calderon, Audri, RN RN aa5 Audrey Voss RN RN tw2 Corrections: (The following items were deleted from the chart) 13:37 11:17 Hospitalization Ordered by Tara Cueto MD for Inpatient Admission. Preliminary sg diagnosis is Pleural effusion, not elsewhere classified; Pulmonary edema; End stage renal disease; Chronic obstructive pulmonary disease, unspecified. Bed requested for Telemetry/MedSurg (Inpatient). Status is Inpatient Admission. Condition is Stable. Problem is new. Symptoms have improved. UTI on Admission? No. rn 13:37 13:37 04/28/2018 11:17 Hospitalization Ordered by Tara Cueto MD for Inpatient sg Admission. Preliminary diagnosis is Pleural effusion, not elsewhere classified; Pulmonary edema; End stage renal disease; Chronic obstructive pulmonary disease, unspecified. Bed requested for [facility] ER HOLD. Status is Inpatient Admission. Condition is Stable. Problem is new. Symptoms have improved. UTI on Admission? No. sg 14:51 13:37 04/28/2018 11:17 Hospitalization Ordered by Tara Cueto MD for Inpatient bd Admission. Preliminary diagnosis is Pleural effusion, not elsewhere classified; Pulmonary edema; End stage renal disease; Chronic obstructive pulmonary disease, unspecified. Bed requested for [facility] ER HOLD. Status is Inpatient Admission. Condition is Stable. Problem is new. Symptoms have improved. UTI on Admission? No. sg 17:03 14:51 04/28/2018 11:17 Hospitalization Ordered by Tara Cueto MD for Inpatient tw2 Admission. Preliminary diagnosis is Pleural effusion, not elsewhere classified; Pulmonary edema; End stage renal disease; Chronic obstructive pulmonary disease, unspecified. Bed requested for Telemetry/MedSurg (Inpatient). Status is Inpatient Admission. Condition is Stable. Problem is new. Symptoms have improved. UTI on Admission? No. bd
--- NOTE | 2018-04-28 11:18 | ER ---
Nurse's Notes 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 Hx of COPD and CHF, pt aa5 was 85% via 4 L NC upon scene arrival and increased to 98 % via neb tx. EMS reports pt is due for dialysis today and reports recent cardiac arrest at [facility] approximately 3 weeks ago as reported by family. Transition of care: patient was not received from another setting of care. Onset of symptoms was April 28, 2018. Risk Assessment: Do you want to hurt yourself or someone else? Patient reports no desire to harm self or others. Care prior to arrival: Medication(s) given: Albuterol Neb x 2, Atrovent Neb x 1, IV initiated. 20 GA, in the left antecubital area. 09:25 Method Of Arrival: EMS: [facility] aa5 09:25 Acuity: CCEE 1 aa5 15:11 Initial Sepsis Screen: Does the patient meet any 2 criteria? No. Patient's initial tw2 sepsis screen is negative. Does the patient have a suspected source of infection? No. Patient's initial sepsis screen is negative. Triage Assessment: 09:25 General: Appears distressed, uncomfortable, Behavior is cooperative. Neuro: Level of aa5 Consciousness is awake, alert, obeys commands, Oriented to person, place, time, situation. Respiratory: Reports shortness of breath Airway is patent Respiratory effort is labored, Respiratory pattern is tachypnea Onset: The symptoms/episode began/occurred this morning. Derm: Skin is dry, Skin is pale, Skin temperature is warm. 09:25 Pain: Denies pain. Respiratory: the patient has severe shortness of breath. tw2 Historical: - Allergies: 09:28 acetylcysteine; aa5 09:28 Ciprofloxacin; aa5 09:28 Iodinated Contrast Media - IV Dye; aa5 09:28 PENICILLINS; aa5 - PMHx: 09:28 COPD; ESRD; Hemodialysis-MWF; High Cholesterol; Hypertension; Pacemaker; aa5 - PSHx: 09:28 Dialysis catheter to left upper chest; Pacemaker; aa5 - Immunization history:: Adult Immunizations. - Ebola Screening: : No symptoms or risks identified at this time. - Family history:: not pertinent. - Social history:: Smoking status: . - Hospitalizations: : Patient was recently seen at. Screenin:42 Abuse screen: Denies threats or abuse. Denies injuries from another. Nutritional sg screening: No deficits noted. Tuberculosis screening: No symptoms or risk factors identified. Never had TB. Fall Risk None identified. Assessment: 09:25 Cardiovascular: Rhythm is regular. Respiratory: Airway is patent Respiratory effort is tw2 even, labored, Respiratory pattern is tachypnea Breath sounds are clear. 09:30 Reassessment: RT at bedside placing pt on Bi-PAP. aa5 09:39 Reassessment: Pt tolerating Bi-PAP well at this time . aa5 09:45 Reassessment: Contacted lab for drawing blood, unsuccessful attempt by Jamal Balderas ER [facility] tech . 10:14 Reassessment: Unsuccessful attempt by clinical laboratory director to draw blood. Another clinical laboratory director at [facility] bedside attempting draw at this time. . 10:50 Reassessment: Patient appears in no apparent distress at this time. Patient and/or sg family updated on plan of care and expected duration. Pain level reassessed. Lab at bedside once more for serum specimen collection, unable to obtain last set of blood cultures, reports first set has been collected. 11:50 Reassessment: Patient appears in no apparent distress at this time. Patient and/or sg family updated on plan of care and expected duration. Pain level reassessed. Patient states feeling better. 12:38 Reassessment: at bedside evaluating pt at this time. sg Vital Signs: 09:27 BP 145 / 70; Pulse 85; Resp 36 S; Temp 96.6(TE); Pulse Ox 100% on Nebulizer Mask; aa5 09:37 BP 136 / 62; Pulse 81; Resp 20 A; Pulse Ox 100% on BiPAP; aa5 10:57 BP 123 / 51; Pulse 66; Resp 27; Pulse Ox 100% on BiPAP; sg 12:30 BP 122 / 66; Pulse 70; Resp 17; Temp 97.4; Pulse Ox 100% on BiPAP; sg 12:43 Weight 55.34 kg (R); sg 13:30 BP 142 / 65; Pulse 70; Resp 18; Pulse Ox 100% on BiPAP; tw2 14:41 BP 136 / 62; Pulse 74; Resp 24; Pulse Ox 99% on BiPAP; tw2 ED Course: 09:25 Patient arrived in ED. aa5 09:25 Arm band placed on. aa5 09:26 Tommie Conley MD is Attending Physician. rn 09:28 Triage completed. aa5 09:35 Patient has correct armband on for positive identification. Bed in low position. Call sg light in reach. Side rails up X2. equipment monitor phototypesetting on. Pulse ox on. NIBP on. Warm blanket given. Head of bed elevated. 09:45 EKG done, by pre sales technical engineer. reviewed by Tommie Conley MD. at1 10:39 Rito Snyder, RN is Primary Nurse. sg 10:51 XRAY CXR (1 view) In Process Unspecified. EDMS 11:17 Tara Cueto MD is Hospitalizing Provider. rn 15:19 No provider procedures requiring assistance completed. Patient admitted, IV remains in tw2 place. Administered Medications: 09:30 Drug: SOLU-Medrol 125 mg Route: IVP; Site: left antecubital; aa5 09:40 Follow up: Response: No adverse reaction aa5 09:30 Drug: Xopenex (3) 1.25 mg Route: Inhalation; aa5 Outcome: 11:17 Decision to Hospitalize by Provider. rn 13:34 Admitted to ER Hold. Please see [facility] for further documentation. sg 15:20 Condition: stable tw2 16:41 Admitted to Tele accompanied by tech, via stretcher, with oxygen, with chart, Report aa5 called to JOSSELYN Zeng 16:41 Condition: stable 17:03 Patient left the ED. tw2 Signatures: Dispatcher [employer] EDMS Rito Snyder, RN JOSSELYN Tommie Conley MD MD rn Calderon, Audri RN RN aa5 Rona Elizalde, care rep EKG Tat1 Audrey Voss RN RN tw2 Corrections: (The following items were deleted from the chart) 09:38 09:17 BP 145 / 70; Pulse 85bpm; Resp 36bpm; Spontaneous; Pulse Ox 100% Nebulizer Mask; aa5 Temp 96.6F Temporal; aa5 09:38 09:30 BP 136 / 62; Pulse 81bpm; Resp 20bpm; Assisted; Pulse Ox 100% BiPAP; aa5 aa5 12:32 12:30 BP 122 / 66; Pulse 40bpm; Resp 17bpm; Pulse Ox 100% BiPAP; Temp 97.4F; sg sg
[2018-04-28 11:28] LABS: Potassium 5.1 mmol/L (3.5-5.1); Troponin (Emerg Dept Use Only) 0.09 ng/mL (0.0-0.045)
[2018-04-28] MEDS ORDERED: PNEUMOCOCCAL VACCINE 0.5 ML IMVAC ONE (14:00)
[2018-04-28] MEDS ORDERED: ONDANSETRON 4 MG/2 ML VIAL IV PRN (14:57)
--- NOTE | 2018-04-28 15:18 | EKG ---
Test Date: 2018-04-28 Test Time: 08:40:26 Cable Lacer: EPIFANIO MEASUREMENT RESULTS: Intervals: Rate: 83 MO: 184 QRSD: 134 QT: 386 QTc: 453 Luther: P: 56 MO: 184 QRS: -23 T: 179 INTERPRETIVE STATEMENTS: Sinus rhythm with premature atrial complexes Nonspecific intraventricular block T wave abnormality, consider inferolateral ischemia Abnormal ECG Compared to ECG 04/04/2018 15:12:26 Atrial premature complex(es) now present Atrial fibrillation no longer present T-wave abnormality still present Electronically Signed On 04-28-18 15:17:44 CDT by Maxi Burnett
[2018-04-28] MEDS: FUROSEMIDE 40 MG/4 ML VIAL IV SCH (17:38)
[2018-04-28] MEDS: LEVALBUTEROL 0.63 MG/3 ML NEB NEB SCH (20:00)
[2018-04-28] MEDS: IPRATROPIUM BROM 0.5MG/2.5ML NEB SCH (20:00)
[2018-04-28] MEDS ORDERED: CARVEDILOL 25 MG TAB PO SCH (21:00)
[2018-04-28] MEDS: ATORVASTATIN 10 MG TAB PO SCH (22:04)
[2018-04-28] MEDS: ASPIRIN EC 81 MG TAB PO SCH (22:04)
[2018-04-29] MEDS: IPRATROPIUM BROM 0.5MG/2.5ML NEB SCH ×4 (01:30→20:00)
[2018-04-29] MEDS: LEVALBUTEROL 0.63 MG/3 ML NEB NEB SCH ×4 (01:30→20:00)
--- NOTE | 2018-04-29 02:20 | CON ---
Date of Consultation: 04/28/2018 Chief Complaint: End-stage renal disease, on dialysis; pulmonary edema; respiratory failure; congest bennett heart failure, acute on chronic with hypoxemic respiratory failure. The patient was brought to e mergency room because she was very lethargic and short of breath. She became short of breath this mo rning. She has been treated with dialysis 3 times per week. She has history of COPD exacerbation an d CHF exacerbation. The patient was found to have severe hypoxemia and on 4 L nasal cannula, SpO2 wa s 85%. She received nebulizer treatment given by EMS. She recently had a cardiac arrest when she wa s hospitalized at [facility] approximately 3 weeks ago and prior to this admission, she denies feve r, hemoptysis. The patient is admitted for severe shortness of breath, respiratory failure. She has fluid overload. She will have emergent dialysis to treat fluid overload. Review of Systems: Unobtainable. The patient is short of breath, cannot provide review of systems. Past Medical History: Multiple medical problems including history of congestive heart failure, systo lic, diastolic dysfunction; COPD exacerbation; multiple admission for bronchitis and pneumonia; ather osclerotic vascular disease; hypertensive heart and kidney disease; hyperlipidemia; renal osteodystro phy; anemia; CKD; atrial fibrillation; peripheral vascular disease; carotid artery disease; congestiv e heart failure with diastolic dysfunction and moderate pulmonary hypertension; pacemaker placement; kidney stents for renal artery stenosis; bilateral lens implants; bilateral carpal tunnel repair; hys terectomy; appendectomy; tonsillectomy. Family History: Mother had diabetes, hypertension, and heart disease. Sister, diabetes. Social History: She is a former smoker. Denies alcohol or illicit drugs. Physical Examination: General: The patient is cachectic, alert, in moderate respiratory distress, and lethargic. Vital Signs: Blood 119/66, heart rate is 115, temperature 98, SpO2 88 to 96. Eyes: Anicteric sclerae. EOMI. Ears, Nose, Mouth, and Throat: Oral mucosa moist. No pallor. Neck: Supple. No JVD. No bruits. Lungs: Crackles bilaterally. Expiratory wheezes and inspiratory wheezes. Cardiovascular: S1, S2. No pericardial friction rub. Abdomen: Soft, benign, nontender. No rebound, no guarding. Extremities: Swelling, edema in both legs. No clubbing, no cyanosis. Neurologic: Moving extremities. Cranial nerves intact. Psychiatric: Alert, oriented x3. Normal affect, although she is somewhat lethargic and in respirato ry distress. Laboratory Data: Hemoglobin 9.8, WBC 10.0, platelet count is 244,000, neutrophils 75.6, lymphocytes 13.9%. Sodium is 130, potassium 5.1, chloride 95, CO2 26, BUN 42, creatinine 4.97, glucose 140, calc ium is 9.2. Impression And Plan: 1.Severe dyspnea, respiratory failure. Chest x-ray showed pulmonary edema. The patient came to the hospital because of shortness of breath. She was found to have severe hypoxemia. The patient will be treated for chronic obstructive pulmonary disease exacerbation. The patient was found to have flu id overload, generalized edema, anasarca. There is hyponatremia corresponding with dilutional effect of fluid overload. The patient will have stat emergent dialysis to provide metabolic clearance and ultrafiltration to treat fluid overload and provide management for congestive heart failure. 2.Anemia. Monitor hemoglobin level, adjust ROMELIA as needed. 3.Renal osteodystrophy. Continue renal diet and binders. 4.Chronic obstructive pulmonary disease exacerbation. Continue nebulizer and oxygen therapy. 5.Congestive heart failure with diastolic dysfunction, pulmonary hypertension. The patient will moises efit from daily dialysis to control volemia. 6.Hyperlipidemia. Continue treatment. Monitor for any evidence of rhabdomyolysis. STEPHON/MODL Voice ID: [id number] Report ID: [id number]
[2018-04-29 06:07] LABS: Albumin 2.7 g/dL (3.4-5.0); Bilirubin Total 0.3 mg/dL (0.2-1.0); Magnesium 2.3 mg/dL (1.8-2.4); Phosphorus 3.4 mg/dL (2.5-4.9); Potassium 4.3 mmol/L (3.5-5.1)
[2018-04-29 06:17] LABS: Absolute Lymphocytes (CBC) 0.4 K/uL (0.7-4.9); Absolute Monocytes 0.3 K/uL (0.1-1.3); Absolute Neutrophil 3.9 K/uL (1.8-8.0); Basophils % 0.1 % (0-1.3); Hematocrit 26.3 % (36.0-45.0); Lymphocytes % 8.8 % (15.3-44.8); MPV 7.9 fL (7.6-11.3); Monocytes % 6.8 % (3.3-12.3); RBC Red Blood Cell Count 2.87 M/uL (3.86-4.86)
[2018-04-29] MEDS: ASCORBIC ACID 500 MG TABLET PO SCH (09:33)
[2018-04-29] MEDS: FUROSEMIDE 40 MG/4 ML VIAL IV SCH ×3 (09:33→20:25)
[2018-04-29] MEDS: predniSONE 10 MG TAB PO SCH (09:33)
[2018-04-29] MEDS ORDERED: EPOETIN ALFA 10,000 UNIT/ML VIAL IV SCH (13:15)
--- NOTE | 2018-04-29 17:34 | P.PN ---
Subjective Date of Service: 04/29/18 Physical Examination - Vital Signs Temperature: 98.5 F Blood Pressure: 116/54 Pulse: 78 Respirations: 18 Pulse Ox (%): 100 - Studies Microbiology Data (last 24 hrs): 04/28/18 10:36 Blood - Blood Anaerobic Blood Culture - Final Assessment And Plan - Plan Hypercapnic respiratory failure Improving Acute on chronic respiratory failure most likely secondary to CHF vs COPD exacerbation Now off of Bi-PAP. Will use BiPAP prn IV lasix BID and Dialysis for CHF exacerbation Duonebs, Steroids and BIPAP for COPD exacerbation Acute on chronic diastolic CHF (congestive heart failure) Acute on chronic diastolic heart failure most likely secondary to medication noncompliance versus dialysis noncompliance nephrology consulted s/p hemodialysis yesterday for volume overload. IV lasix BID for now. Last ECHO < 6 months ago with Diastolic CHF and WNL EF COPD exacerbation Currently on duo nebs, BIPAP and steroids Atrial fibrillation CAD (coronary artery disease) ESRD (end stage renal disease) on dialysis Gastroesophageal reflux disease Hyperlipidemia Hypertension Status post placement of cardiac pacemaker Disposition: Pending symptomatic improvement.
--- NOTE | 2018-04-29 18:02 | PN ---
Date of Progress Note: 04/29/2018 Subjective: Patient was admitted with over volume. The patient recently was admitted with upper GI bleed with cardiac arrest. Physical Examination: Vital Signs: When I saw, the patient blood pressure 118/58, pulse of 69 afebrile. Chest: Crackles bilateral. Heart: S1, S2, regular. Abdomen: Soft, nontender. Extremities: Trace edema. Laboratory Data: WBC 4.6, H and H 8.3/26.3, platelets 208. Sodium 135, potassium 4.3, bicarb 28, BU N of 26, creatinine 3.1, GFR of 14, calcium 8.3, phosphorus 3.4, BNP 90,000. Current Medications: The patient on include, 1.Breathing treatment. 2.Heparin. 3.Carvedilol 25 b.i.d. 4.Zofran. 5.Lasix 40 b.i.d. 6.Vitamin D. Assessment And Plan: 1.End-stage renal disease, still over volume. I am going to go ahead and do another session of dial ysis today. We will do sequential of 2 hour and we will monitor the patient. 2.Hypertension, currently blood pressure on the lower side. Decrease carvedilol to 3.25. 3.Anemia of chronic kidney disease. We will resume the patient on Epogen. 4.Congestive heart failure with exacerbation. We will try to establish better volume control. 5.Chronic obstructive pulmonary disease exacerbation as by Pulmonary. JESSICA/ADITI Voice ID: [id number] Report ID: [id number]
[2018-04-29] MEDS: ATORVASTATIN 10 MG TAB PO SCH (20:24)
[2018-04-29] MEDS: ASPIRIN EC 81 MG TAB PO SCH (20:24)
[2018-04-29] MEDS ORDERED: CARVEDILOL 3.125 MG TAB PO SCH (21:00)
[2018-04-30] MEDS: LEVALBUTEROL 0.63 MG/3 ML NEB NEB SCH ×3 (02:00→13:47)
[2018-04-30] MEDS: IPRATROPIUM BROM 0.5MG/2.5ML NEB SCH ×3 (02:00→13:47)
[2018-04-30 05:59] LABS: Absolute Lymphocytes (CBC) 0.8 K/uL (0.7-4.9); Absolute Monocytes 0.6 K/uL (0.1-1.3); Basophils % 0.1 % (0-1.3); Eosinophils % 0.2 % (0-4.4); Lymphocytes % 12.6 % (15.3-44.8); MPV 7.6 fL (7.6-11.3); Monocytes % 8.9 % (3.3-12.3); RBC Red Blood Cell Count 3.05 M/uL (3.86-4.86)
[2018-04-30 06:10] LABS: Albumin 2.9 g/dL (3.4-5.0); Bilirubin Total 0.3 mg/dL (0.2-1.0); Potassium 4.1 mmol/L (3.5-5.1); Protein, Total 5.3 g/dL (6.4-8.2)
[2018-04-30 07:26] VITALS: BMI 19.6
[2018-04-30] MEDS: predniSONE 10 MG TAB PO SCH ×2 (09:00→14:06)
[2018-04-30] MEDS: ASCORBIC ACID 500 MG TABLET PO SCH ×2 (09:00→14:06)
[2018-04-30] MEDS: FUROSEMIDE 40 MG/4 ML VIAL IV SCH ×3 (09:00→17:00)
[2018-04-30 10:58] VITALS: O2SAT 99
--- NOTE | 2018-04-30 12:03 | PN ---
Date of Progress Note: 04/30/2018 Subjective: The patient is status post dialysis yesterday, managed to remove a 1200, tolerated well. The patient seen on dialysis today. According to her, she is still slightly better. Physical Examination: Vital Signs: Blood pressure 118/56, pulse of 69, afebrile. Chest: Crackles in bilateral bases. Heart: S1, S2. Systolic murmur. Abdomen: Soft, nontender. Extremities: Trace edema. Laboratory Data: H and H 11/15. Sodium 131, potassium 4.1, bicarb 27, BUN 36, creatinine 4.1, calciu m 8.5. Current Medications: The patient is on include, 1.Breathing treatment, albuterol. 2.Atorvastatin. 3.Carvedilol 3.125. 4.Lasix 40 b.i.d. 5.Zofran. 6.Prednisone. 7.Vitamin C. Assessment And Plan: 1.End-stage renal disease. Over volume secondary to congestive heart failure. Decompensated heart. I cannot continue dialysis today. The patient is going to be dialyzed on sodium module to avoid lo w blood pressure and low temperature. We will adjust her dry weight. The patient after dialysis jonathan l repeat chest x-ray. If the breathing status is back to her baseline, the patient will be ready to be discharged to follow up as outpatient. We will consider as outpatient if she is going to need any extra treatment p.r.n. on a regular basis weekly, and we will follow up. 2.Hypertension. Currently blood pressure on the lower side. Continue utilizing blood pressure for ultrafiltration. 3.Anemia of chronic kidney disease. Continue Epogen. 4.Chronic obstructive pulmonary disease exacerbation as by Primary. 5.Congestive heart failure as above. JESSICA/ADITI Voice ID: [id number] Report ID: [id number]
--- NOTE | 2018-04-30 16:45 | RAD REPORT ---
EXAM DESCRIPTION: RAD - Chest Single View - 04/30/2018 4:36 pm CLINICAL HISTORY: COPD COMPARISON: April 28 TECHNIQUE: AP portable chest image was obtained 1634 hours . FINDINGS: Lung volumes are low. There is hazy opacification over both lung bases likely a combinatio n of atelectasis and pleural effusion. No dense consolidation seen. Lung markings are prominent but n ot substantially different. Cardiomegaly is present. Vasculature is prominent. Pacemaker and dialysis catheter in place. No pneumothorax. No acute bony abnormality seen. No acute aortic findings suspect ed. IMPRESSION: Limited shallow inspiration exam showing mild failure/ volume overload.
[2018-04-30 18:37] VITALS: BP 119/57
[2018-04-30 18:47] VITALS: TEMP 98.6
--- NOTE | 2018-04-30 18:55 | P.DS ---
Admission Date: 04/28/18 Discharge Date: 04/30/18 Disposition: DC HOME/HOME HEALTH CARE Discharge Condition: FAIR Reason for Admission: Shortness of breath Consultations: Nephrology Brief History of Present Illness: (1) Hypercapnic respiratory failure Status: Acute Qualifiers: Chronicity: acute on chronic Qualified Code(s): J96.22 - Acute and chronic respiratory failure with hypercapnia (2) Acute on chronic diastolic CHF (congestive heart failure) Onset Date: 04/24/17 Status: Acute (3) COPD exacerbation Onset Date: 10/18/17 Status: Acute (4) Atrial fibrillation Onset Date: 03/26/16 Status: Chronic Qualifiers: Atrial fibrillation type: chronic Qualified Code(s): I48.2 - Chronic atrial fibrillation (5) CAD (coronary artery disease) Onset Date: 10/04/14 Status: Chronic Qualifiers: Coronary Disease-Associated Artery/Lesion type: [place] artery [place] vs. transplanted heart: [place] heart Associated angina: without angina Qualified Code(s): I25.10 - Atherosclerotic heart disease of [place] coronary artery without angina pectoris (6) ESRD (end stage renal disease) on dialysis Onset Date: 12/16/17 Status: Chronic (7) GERD (gastroesophageal reflux disease) Onset Date: 06/24/17 Status: Chronic Qualifiers: Esophagitis presence: without esophagitis Qualified Code(s): K21.9 - Gastro -esophageal reflux disease without esophagitis (8) Hypertension Onset Date: 10/04/14 Status: Chronic Qualifiers: Hypertension type: essential hypertension Qualified Code(s): I10 - Essential (primary) hypertension Brief History of Present Illness: 88-year-old female with significant past medical history who is a frequent Flyer to the hospital who presented to the hospital for shortness of breath. Shortness of breath started 2 days ago and has got progressively worse. Patient was supposed to get his dialysis today however was not able to get dialysis due to shortness of breath and she presented to the hospital for it. Patient has had previous admission for similar symptoms and was admitted to the hospital for acute respiratory failure and had intubation done and was admitted to the ICU at that time. Patient did have marked improvement and was discharged home under stable condition. Patient does have a history of noncompliance with diet along with medications as well. Patient was placed on BiPAP in the ER. Was unable to provide more history due to being in acute respiratory distress Hospital Course: Hospital Course: (1) Hypercapnic respiratory failure She was started on bi-pap and eventually weaned off to her home oxygen level via nasal canula. Chronic hypercapnic respiratory failure most likely secondary to COPD exacerbation (2) Acute on chronic diastolic CHF (congestive heart failure) Acute on chronic diastolic heart failure most likely secondary to medication noncompliance versus dialysis noncompliance Nephrology consulted and she was dialysed x 2 here in the hospital which improved her symptoms. Upon discharge, patient would like to continue staying with her son (refused facility) and continue her home dialysis. (3) COPD exacerbation She was continued on duo nebs, oxygen and steroids (4) Atrial fibrillation Chronic atrial fibrillation, remained stable. (5) CAD (coronary artery disease) Atherosclerotic heart disease of [place] coronary artery without angina pectoris Remained stable. (6) ESRD (end stage renal disease) on dialysis She worked well with physical therapy. She refuses placement in a facility and will return home with her son. She will continue home dialysis. Medication compliance extensively discu Vital Signs/Physical Exam: Temp Pulse Resp BP Pulse Ox 98.6 F 70 20 119/57 L 98 04/30/18 16:00 04/30/18 17:00 04/30/18 16:00 04/30/18 17:00 04/30/18 16:00 General: Alert, In no apparent distress HEENT: Atraumatic, PERRLA, EOMI Neck: Supple, JVD not distended Respiratory: Clear to auscultation bilaterally, Normal air movement Cardiovascular: Regular rate/rhythm, Normal S1 S2 Gastrointestinal: Normal bowel sounds, No tenderness Musculoskeletal: No tenderness Integumentary: No rashes Neurological: Normal speech, Normal tone, Normal affect Laboratory Data at Discharge: WBC 6.4 K/uL (4.3-10.9) D 04/30/18 05:26 Hgb 9.0 g/dL (12.0-15.0) L 04/30/18 05:26 Hct 28.0 % (36.0-45.0) L 04/30/18 05:26 Plt Count 197 K/uL (152-406) 04/30/18 05:26 PT 11.8 SECONDS (9.5-12.5) 04/28/18 10:23 INR 1.00 04/28/18 10:23 APTT 18.3 SECONDS (24.3-36.9) L 04/28/18 10:23 Sodium 131 mmol/L (136-145) L 04/30/18 05:26 Potassium 4.1 mmol/L (3.5-5.1) 04/30/18 05:26 BUN 36 mg/dL (7-18) H 04/30/18 05:26 Creatinine 4.18 mg/dL (0.55-1.3) H 04/30/18 05:26 Glucose 82 mg/dL (74-106) 04/30/18 05:26 Phosphorus 3.4 mg/dL (2.5-4.9) 04/29/18 05:14 Magnesium 2.3 mg/dL (1.8-2.4) 04/29/18 05:14 Total Bilirubin 0.3 mg/dL (0.2-1.0) 04/30/18 05:26 AST 13 U/L (15-37) L 04/30/18 05:26 ALT 19 U/L (12-78) 04/30/18 05:26 Alkaline Phosphatase 119 U/L (45-117) H 04/30/18 05:26 Home Medications: Carvedilol 25 mg PO BEDTIME 09/06/17 Pravastatin Sodium [Pravachol] 80 mg PO BEDTIME 11/12/17 Ascorbic Acid [Vitamin C] 250 mg PO DAILY 03/18/18 Aspirin [Aspir-Low] 81 mg PO BEDTIME 03/18/18 Ipratropium Neb [Atrovent*] 0.2 mg IH Q4HP PRN 04/28/18 Multivit-Min/FA/Lycopen/Lutein [Centrum Silver Tablet] 1 each PO BEDTIME Umeclidinium Brm/Vilanterol Tr [Anoro Ellipta 62.5-25 Mcg INH] 1 each IH DAILY 04/28/18 Ipratropium Benavides 0.2 mg NEB Q4H PRN #30 ml 04/30/18 New Medications: Ipratropium Benavides 0.2 mg NEB Q4H PRN #30 ml PRN Reason: Shortness Of Breath Diet: Renal Activity: Ad jessica Followup: Burak Sheldon MD [ACTIVE - CAN ADMIT] - Time spent managing pt's care (in minutes): 55
== END 2018-04-30 19:04 | disposition home health service (06) ==
LOC: ER 09:24 → ERHOLD 11:59 → 2ND 16:43
PROVIDERS: ADMIT Family Medicine; ATTEND Family Medicine
DX: I13.2 Hypertensive heart and chronic kidney disease with heart failure and with stage 5 chronic kidney disease, or end stage renal disease (principal); N18.6 End stage renal disease; I50.33 Acute on chronic diastolic (congestive) heart failure; J96.22 Acute and chronic respiratory failure with hypercapnia; J44.1 Chronic obstructive pulmonary disease with (acute) exacerbation; I25.10 Atherosclerotic heart disease of native coronary artery without angina pectoris; K21.9 Gastro-esophageal reflux disease without esophagitis; I48.2 Chronic atrial fibrillation; D63.1 Anemia in chronic kidney disease; E78.5 Hyperlipidemia, unspecified; Z95.0 Presence of cardiac pacemaker; Z99.2 Dependence on renal dialysis
CPT/HCPCS: 93005; 87040; 85025 ×3; 80048; 36415 ×2; 83735; 84100; 85610; 85730; 84484; 80053 ×2; 86704; 83880; 87340; 86706; 86803; 87804 ×2; 71045 ×2; 90935 ×4; 97162; 94660 ×2; 96374; 99291; 99292; J1940 ×4; Q4081 ×2; J1644 ×5; J2930; G0378 ×2; J7512

== ENCOUNTER 2018-05-06 14:34 | Emergency (ER) | payer OTHER ==
--- OUTSIDE RECORDS SUMMARY | 2018-05-06 14:38 | XMS REPORT ---
:1930 Author Organization [facility] Address [address] [place] [address] Care Team Providers Name Role Phone Unavailable Unavailable Unavailable Payers Payer Name Policy Type Policy Number Effective Date Expiration Date Problems This patient has no known problems. Allergies, Adverse Reactions, Alerts Allergy Name Allergy Status Severity Reaction(s) Onset Inactive Treating Comments Type Date [place] [address] Contrast- Oral 2-16 and IV Dye 00:00: [...] code=BNP) > 5000.0 PG/ML 0-100 BASIC METABOLIC [id number] 08:04:00 Test Item Value Reference Range Comments [...] (test code=CA) 9.1 MG/DL 8.4-10.2 CBC W/AUTO [id number] 07:51:00 Test Item Value Reference Range Comments [...] 2 ng/mL are obtained. - XR CHEST [id number] 07:52:00 Patient Name: DALJIT JOHNSON Unit No: [id number] EXAMS: CPT CODE: [id number] XR CHEST 1V 48857 EXAM: Portable chest x-ray Location: B2 COMPARISON: [...] Turk MD CC: Cas Aguayo; [employer] Technologist: Sandra Greenfield RT(R); Yadira Faulkner RT(R) Transcrpt Date/Tm/Trnsp: 04/16/2018 (0752) t.SDR.BC0 Orig Print D/T: S: 04/16/2018 (0755) [facility] NAME: DALJIT JOHNSON [id number] PHYS: [email or web address] - [place] [address] : 1930 AGE: 88 SEX: F LOC: Z.I12 A PHONE #: [phone] EXAM DATE: 04/16/2018 STATUS: ADM IN FAX #: [phone] RADIOLOGY NO: PAGE 1 Signed ReportBASIC METABOLIC [id number] 05:30:00 Test Item Value Reference Range Comments [...] (test code=CA) 9.2 MG/DL 8.4-10.2 CBC W/AUTO [id number] 05:06:00 Test Item Value Reference Range Comments [...] (test code=NRBC#) 0.00 K/mm3 0.0-0.1 BASIC METABOLIC [id number] 05:41:00 Test Item Value Reference Range Comments [...] 0.52-1.04 CALCIUM (test code=CA) 10.2 MG/DL 8.4-10.2 [id number] 05:41:00 Test Item Value Reference Range Comments PHOSPHOROUS (test code=PHOS) 3.4 MG/DL 2.5-4.5 [id number] 05:41:00 Test Item Value Reference Range Comments MAGNESIUM (test code=MAG) 2.0 MG/DL 1.6-2.3 CBC W/AUTO [id number] 05:16:00 Test Item Value Reference Range Comments [...] # (test code=NRBC#) 0.0 K/mm3 0.0-0.1 CPK-MB [id number] 00:30:00 Test Item Value Reference Range Comments CREATINE KINASE (CK) (test code=CK) 43 UNITS/L 30-135 CKMB (test code=CKMBT) 2.63 NG/ML 0.0-5.6 CKMB INDEX (test code=CKMBI) 6.1 % 4.0-4.4 [id number] 00:30:00 Test Item Value Reference Range Comments TROPONIN-I (test 0.517 NG/ML 0.012-0.033 CALLED TO JESSICA Virk& code=TROPI) READBACK ON 04/15/18 AT 0030 BY Silvano Mena HGB [id number] 00:05:00 Test Item Value Reference Range Comments HEMOGLOBIN (test code=HGB) 9.8 G/DL 11.2-14.9 HEMATOCRIT (test code=HCT) 31.5 % 33.2-43.5 CPK-MB [id number] 20:46:00 Test Item Value Reference Range Comments CREATINE KINASE (CK) (test code=CK) 43 UNITS/L 30-135 CKMB (test code=CKMBT) 2.63 NG/ML 0.0-5.6 CKMB INDEX (test code=CKMBI) 6.1 % 4.0-4.4 [id number] 20:46:00 Test Item Value Reference Range Comments TROPONIN-I (test 0.460 NG/ML 0.012-0.033 CALLED TO JESSICA Virk& code=TROPI) READBACK ON 04/14/18 AT 2046 BY Maya Parker CPK-MB [id number] 20:30:00 Test Item Value Reference Range Comments CREATINE KINASE (CK) (test code=CK) 43 UNITS/L 30-135 CKMB (test code=CKMBT) NG/ML 0.0-5.6 CKMB INDEX (test code=CKMBI) % 4.0-4.4 [id number] 20:30:00 Test Item Value Reference Range Comments TROPONIN-I (test code=TROPI) NG/ML 0.0-0.045 LACTIC [id number] 17:43:00 Test Item Value Reference Range Comments LACTIC ACID (test code=LACT) 0.8 MMOL/L 0.7-2.1 CPK-MB [id number] 14:06:00 Test Item Value Reference Range Comments CREATINE KINASE (CK) (test code=CK) 49 UNITS/L 30-135 CKMB (test code=CKMBT) 3.88 NG/ML 0.0-5.6 CKMB INDEX (test code=CKMBI) 7.9 % 4.0-4.4 [id number] 14:06:00 Test Item Value Reference Range Comments TROPONIN-I (test 0.248 NG/ML 0.012-0.033 CALLED TO MADISON& READBACK ON code=TROPI) 04/14/18 AT 1405 BY Mike Perez LACTIC [id number] 13:49:00 Test Item Value Reference Range Comments LACTIC ACID (test code=LACT) 0.9 MMOL/L 0.7-2.1 CPK-MB [id number] 13:49:00 Test Item Value Reference Range Comments CREATINE KINASE (CK) (test code=CK) 49 UNITS/L 30-135 CKMB (test code=CKMBT) NG/ML 0.0-5.6 CKMB INDEX (test code=CKMBI) % 4.0-4.4 [id number] 13:49:00 Test Item Value Reference Range Comments TROPONIN-I (test code=TROPI) NG/ML 0.0-0.045 PROTHROMBIN [id number] 11:52:00 Test Item Value Reference Range Comments [...] 04/14/18 AT 1052 BY Franchesca Garrison METABOLIC [id number] 11:38:00 Test Item Value Reference Range Comments [...] ALKALINE PHOSPHATASE (test 70 UNITS/L 38-126 code=ALKP) [id number] 11:38:00 Test Item Value Reference Range Comments PHOSPHOROUS (test code=PHOS) 3.0 MG/DL 2.5-4.5 [id number] 11:38:00 Test Item Value Reference Range Comments MAGNESIUM (test code=MAG) 2.0 MG/DL 1.6-2.3 LIPOPROTEIN LDL [id number] 11:38:00 Test Item Value Reference Range Comments LIPOPROTEIN LDL DIRECT (test 40 mg/dL 100-129 code=LDLDIR) ===Reference Interval: mg/dL mmol/L ---------Optimal <100 <2.6Near/above optimal 100-129 2.6-3.3Borderline High 130-159 3.4-4.1High 160-189 4.1-4.9Very High >=190 >=4.9=========This LDL result is a direct measurement.========= CPK-MB [id number] 11:38:00 Test Item Value Reference Range Comments CREATINE KINASE (CK) (test code=CK) 51 UNITS/L 30-135 CKMB (test code=CKMBT) 3.07 NG/ML 0.0-5.6 CKMB INDEX (test code=CKMBI) 6.0 % 4.0-4.4 [id number] 11:38:00 Test Item Value Reference Range Comments [...] < 2 ng/mL are obtained. COMPREHENSIVE METABOLIC [id number] 11:27:00 Test Item Value Reference Range Comments [...] ALKALINE PHOSPHATASE (test 70 UNITS/L 38-126 code=ALKP) [id number] 11:27:00 Test Item Value Reference Range Comments PHOSPHOROUS (test code=PHOS) 3.0 MG/DL 2.5-4.5 [id number] 11:27:00 Test Item Value Reference Range Comments MAGNESIUM (test code=MAG) 2.0 MG/DL 1.6-2.3 LIPOPROTEIN LDL [id number] 11:27:00 Test Item Value Reference Range Comments LIPOPROTEIN LDL DIRECT (test code=LDLDIR) mg/dL 100-129 CPK-MB [id number] 11:27:00 Test Item Value Reference Range Comments CREATINE KINASE (CK) (test code=CK) 51 UNITS/L 30-135 CKMB (test code=CKMBT) 3.07 NG/ML 0.0-5.6 CKMB INDEX (test code=CKMBI) 6.0 % 4.0-4.4 [id number] 11:27:00 Test Item Value Reference Range Comments [...] < 2 ng/mL are obtained. COMPREHENSIVE METABOLIC [id number] 10:29:00 Test Item Value Reference Range Comments [...] ALKALINE PHOSPHATASE (test 70 UNITS/L 38-126 code=ALKP) [id number] 10:29:00 Test Item Value Reference Range Comments PHOSPHOROUS (test code=PHOS) 3.0 MG/DL 2.5-4.5 [id number] 10:29:00 Test Item Value Reference Range Comments MAGNESIUM (test code=MAG) 2.0 MG/DL 1.6-2.3 LIPOPROTEIN LDL [id number] 10:29:00 Test Item Value Reference Range Comments LIPOPROTEIN LDL DIRECT (test code=LDLDIR) mg/dL 100-129 CPK-MB [id number] 10:29:00 Test Item Value Reference Range Comments CREATINE KINASE (CK) (test code=CK) 51 UNITS/L 30-135 CKMB (test code=CKMBT) 3.07 NG/ML 0.0-5.6 CKMB INDEX (test code=CKMBI) 6.0 % 4.0-4.4 [id number] 10:29:00 Test Item Value Reference Range Comments TROPONIN-I (test code=TROPI) 0.091 NG/ML 0.012-0.033 PROCALCITONIN (PCT)2018-04-14 10:29:00 Test Item Value Reference Range Comments PROCALCITONIN (PCT) (test code=PROCAL) NG/ML LACTIC [id number] 10:08:00 Test Item Value Reference Range Comments LACTIC ACID (test code=LACT) 2.6 MMOL/L 0.7-2.1 CBC W/AUTO [id number] 09:43:00 Test Item Value Reference Range Comments [...] (test code=NRBC#) 0.0 K/mm3 0.0-0.1 ARTERIAL BLOOD [id number] 08:51:00 Test Item Value Reference Range Comments [...] (test code=COHBGFFIO2) 80 % - XR CHEST [id number] 08:07:00 Patient Name: DALJIT JOHNSON Unit No: [id number] EXAMS: CPT CODE: [id number] XR CHEST 1V 11877 Location: U19. CHEST, FRONTAL VIEW HISTORY: CODE [...] signed by: Varsha Recinos MD CC: Cas Aguayo; Deshaun Greene MD Technologist: Katia Slater , RT (R) Transcrpt Date/Tm/Trnsp: 2018 (0807) tGLORIAR.SP17 Orig Print D/T: S: 04/14/2018 (0810) [facility] NAME: DALJIT JOHNSON [id number] PHYS: [place] [address] : 1930 AGE: 88 SEX: F LOC: Z.I12 A PHONE #: [phone] EXAM DATE: 04/14/2018 STATUS: ADM IN FAX #: [phone] RADIOLOGY NO: PAGE 1 Signed ReportGLUCOSE BEDSIDE [id number] 07:26:00 Test Item Value Reference Range Comments GLUCOSE BEDSIDE TESTING (test code=GLUBED) 97 MG/DL 60-99 BASIC METABOLIC [id number] 06:28:00 Test Item Value Reference Range Comments [...] 0.52-1.04 CALCIUM (test code=CA) 8.7 MG/DL 8.4-10.2 [id number] 06:28:00 Test Item Value Reference Range Comments PHOSPHOROUS (test code=PHOS) 3.5 MG/DL 2.5-4.5 [id number] 06:28:00 Test Item Value Reference Range Comments MAGNESIUM (test code=MAG) 1.9 MG/DL 1.6-2.3 CBC W/AUTO [id number] 05:47:00 Test Item Value Reference Range Comments [...] code=NRBC#) 0.0 K/mm3 0.0-0.1 - XR CHEST [id number] 08:19:00 Patient Name: DALJIT JOHNSON Unit No: [id number] EXAMS: CPT CODE: [id number] XR CHEST 1V 05538 LOCATION: T18 EXAM: CHEST 1 VIEW INDICATION: [...] Jason Renee, RT(R) Transcrpt Date/Tm/Trnsp: 04/12/2018 (08) PauR.JP19 Orig Print D/T: S: 04/12/2018 (08) [facility] NAME: DALJIT JOHNSON [id number] PHYS: [place] [address] : 1930 AGE: 88 SEX: F LOC: Z.358 A PHONE #: [phone] EXAM DATE: STATUS: ADM IN FAX #: [phone] RADIOLOGY NO: PAGE 1 Signed ReportBASIC METABOLIC [id number] 06:15:00 Test Item Value Reference Range [...] (test code=CA) 8.5 MG/DL 8.4-10.2 CBC W/AUTO [id number] 06:01:00 Test Item Value Reference Range Comments [...] (test code=NRBC#) 0.0 K/mm3 0.0-0.1 COMPREHENSIVE METABOLIC [id number] 07:44:00 Test Item Value Reference Range Comments [...] ALKALINE PHOSPHATASE (test 58 UNITS/L 38-126 code=ALKP) [id number] 07:44:00 Test Item Value Reference Range Comments PHOSPHOROUS (test code=PHOS) 4.0 MG/DL 2.5-4.5 [id number] 07:44:00 Test Item Value Reference Range Comments MAGNESIUM (test code=MAG) 1.9 MG/DL 1.6-2.3 B-TYPE NATRIURETIC [id number] 07:38:00 Test Item Value Reference Range Comments B-TYPE NATRIURETIC PEPTIDE (test code=BNP) > 5000.0 PG/ML 0-100 CBC W/AUTO [id number] 07:10:00 Test Item Value Reference Range Comments [...] (test code=NRBC#) 0.0 K/mm3 0.0-0.1 B-TYPE NATRIURETIC [id number] 07:57:00 Test Item Value Reference Range Comments B-TYPE NATRIURETIC PEPTIDE (test code=BNP) > 5000.0 PG/ML 0-100 BASIC METABOLIC [id number] 07:42:00 Test Item Value Reference Range Comments [...] (test code=CA) 8.6 MG/DL 8.4-10.2 CBC W/AUTO [id number] 07:17:00 Test Item Value Reference Range Comments [...] code=NRBC#) 0.0 K/mm3 0.0-0.1 - XR CHEST [id number] 06:50:00 Patient Name: DALJIT JOHNSON Unit No: [id number] EXAMS: CPT CODE: [id number] XR CHEST 1V 55345 Exam: Chest portable erect Location: F6 History: [...] (RT ) (AART) Transcrpt Date/Tm/Trnsp: 04/10/2018 (0650) [place] Orig Print D/T: S: 04/10/2018 (0654) [facility] NAME: DALJIT JOHNSON [address] PHYS: ROZ.[place] [address] : 1930 AGE: 88 SEX: F LOC: Z.358 A PHONE #: [phone] EXAM DATE: 04/10/2018 STATUS: ADM IN FAX #: [phone] RADIOLOGY NO: PAGE 1 Signed Report- XR CHEST [id number] 09:10:00 Patient Name: DALJIT JOHNSON Unit No: [id number] EXAMS: CPT CODE: [id number] XR CHEST 1V 51327 LOCATION: T18 EXAM: CHEST 1 VIEW INDICATION: [...] NP Technologist: RT Grace(R) Transcrpt Date/Tm/Trnsp: 04/09/2018 (0910) t.SDR.JP19 Orig Print D/T: S: 04/09/2018 (0914) [facility] NAME: DALJIT JOHNSON [place] [id number] PHYS: [facility]. - [place] [address] : 1930 AGE : 88 SEX: F LOC : Z.358 A PHONE #: [phone] EXAM DATE: 04/09/2018 STATUS : ADM IN FAX #: [phone] RADIOLOGY NO: PAGE 1 Signed ReportBASIC METABOLIC [id number] 05:02:00 Test Item Value Reference Range Comments [...] (test code=CA) 8.6 MG/DL 8.4-10.2 CBC W/AUTO [id number] 04:51:00 Test Item Value Reference Range Comments [...] PATIENT CARE STAFF: JI T- XR CHEST [id number] 07:47:00 Patient Name: DALJIT JOHNSON Unit No: [id number] EXAMS: CPT CODE: [id number] XR CHEST 1V 75797 EXAM: Portable chest x-ray Location: B2 COMPARISON: [...] and signed by: Albert Turk MD CC: Csa Carrera NP Technologist: RT Grace(R) Transcrpt Date/Tm/Trnsp: 04/08/2018 (0747) tJanuarySDR.BC0 Orig Print D/T: S: 2018 (0750) [facility] NAME: DALJIT JOHNSON [address] [place] [address] PHYS: THOSH.Hemal - [place] [address] : 1930 AGE: 88 SEX: F LOC: Z.347 A PHONE #: [phone] EXAM DATE: 04/08/2018 STATUS: ADM IN FAX #: [phone] RADIOLOGY NO: PAGE 1 Signed ReportB-TYPE NATRIURETIC [id number] 06:08:00 Test Item Value Reference Range Comments B-TYPE NATRIURETIC PEPTIDE (test code=BNP) > 5000.0 PG/ML 0-100 BASIC METABOLIC [id number] 05:57:00 Test Item Value Reference Range Comments [...] (test code=CA) 8.2 MG/DL 8.4-10.2 CBC W/AUTO [id number] 05:51:00 Test Item Value Reference Range Comments [...] # (test code=NRBC#) 0.0 K/mm3 0.0-0.1 HGB [id number] 21:32:00 Test Item Value Reference Range Comments HEMOGLOBIN (test code=HGB) 9.0 G/DL 11.2-14.9 HEMATOCRIT (test code=HCT) 29.0 % 33.2-43.5 Comments to Instrument Operator: POST TRANSFUSIONBASIC METABOLIC [id number] 06:06: 00 Test Item Value Reference Range [...] 0.52-1.04 CALCIUM (test code=CA) 8.3 MG/DL 8.4-10.2 [id number] 06:06:00 Test Item Value Reference Range Comments PHOSPHOROUS (test code=PHOS) 2.8 MG/DL 2.5-4.5 [id number] 06:06:00 Test Item Value Reference Range Comments MAGNESIUM (test code=MAG) 2.0 MG/DL 1.6-2.3 B-TYPE NATRIURETIC [id number] 06:05:00 Test Item Value Reference Range Comments B-TYPE NATRIURETIC PEPTIDE (test code=BNP) > 5000.0 PG/ML 0-100 CBC W/AUTO [id number] 05:38:00 Test Item Value Reference Range Comments [...] # (test code=NRBC#) 0.0 K/mm3 0.0-0.1 DIFFERENTIAL [id number] 16:20:00 Test Item Value Reference Range Comments RBC MORPHOLOGY REQUIRED (test code=RBCM) ABNORMAL POLYCHROMASIA (test code=POLC) FEW NONE HYPOCHROMIA (test code=HYPO) SLIGHT NONE POIKILOCYTOSIS (test code=POIK) FEW NONE ANISOCYTOSIS (test code=ANISO) SLIGHT NONE MICROCYTOSIS (test code=MICR) FEW NONE PLATELET ESTIMATE (test code=PLTEST) ADEQUATE ADEQUATE PLATELET MORPHOLOGY (test code=PLTMORPH) NORMAL NORMAL HGB [id number] 16:20:00 Test Item Value Reference Range Comments HEMOGLOBIN (test code=HGB) 5.6 G/DL 11.2-14.9 CALLED TO STANFORD Fuentes RN & READBACK ON 04/05/18 AT 0253 BY Gordo Nolan HEMATOCRIT (test code=HCT) 18.3 % 33.2-43.5 CALLED TO STANFORD Fuentes RN & READBACK ON 04/05/18 AT 0253 BY Gordo Nolan [id number] 12:14:00 Test Item Value Reference Range Comments HEMOGLOBIN (test code=HGB) 8.7 G/DL 11.2-14.9 BASIC METABOLIC [id number] 06:02:00 Test Item Value Reference Range Comments [...] CALCIUM (test code=CA) 8.3 MG/DL 8.4-10.2 PROTHROMBIN [id number] 05:33:00 Test Item Value Reference Range Comments [...] systemic embolism. 3.0 - 4.5 CBC W/AUTO [id number] 05:15:00 Test Item Value Reference Range Comments [...] RBC # (test code=NRBC#) 0.0 K/mm3 0.0-0.1 [id number] 05:11:00 Test Item Value Reference Range Comments HEMOGLOBIN (test code=HGB) 7.6 G/DL 11.2-14.9 [id number] 01:46:00 Test Item Value Reference Range Comments HEMOGLOBIN (test code=HGB) 8.0 G/DL 11.2-14.9 [id number] 18:54:00 Test Item Value Reference Range Comments HEMOGLOBIN (test code=HGB) 8.6 G/DL 11.2-14.9 GLUCOSE BEDSIDE [id number] 13:33:00 Test Item Value Reference Range Comments GLUCOSE BEDSIDE TESTING (test code=GLUBED) 118 MG/DL 60-99 CHEMISTRY 8 [id number] 13:02:00 Test Item Value Reference Range Comments [...] Range: > or=60 ml/min/1.73 m2 CHEMISTRY 8 [id number] 13:02:00 Test Item Value Reference Range Comments [...] Formula)Reference Range: > or=60 ml/min/1.73 m2 PROTHROMBIN [id number] 10:58:00 Test Item Value Reference Range Comments [...] recurrent systemic embolism. 3.0 - 4.5 DIFFERENTIAL [id number] 10:58:00 Test Item Value Reference Range Comments RBC MORPHOLOGY REQUIRED (test code=RBCM) ABNORMAL POLYCHROMASIA (test code=POLC) FEW NONE HYPOCHROMIA (test code=HYPO) SLIGHT NONE ANISOCYTOSIS (test code=ANISO) SLIGHT NONE MICROCYTOSIS (test code=MICR) FEW NONE PLATELET ESTIMATE (test code=PLTEST) ADEQUATE ADEQUATE PLATELET MORPHOLOGY (test code=PLTMORPH) NORMAL NORMAL HGB [id number] 10:58:00 Test Item Value Reference Range Comments HEMOGLOBIN (test code=HGB) 6.0 G/DL 11.2-14.9 CALLED TO Sonia BABB HGB=6.0 & READBACK ON 04/05/18 AT 1016 BY Wander uW HEMATOCRIT (test code=HCT) 19.4 % 33.2-43.5 CALLED TO Sonia BABB HCT=19.4& READBACK ON 04/05/18 AT 1019 BY Wander Wu DIFFERENTIAL [id number] 10:19:00 Test Item Value Reference Range Comments RBC MORPHOLOGY REQUIRED (test code=RBCM) PLATELET ESTIMATE (test code=PLTEST) ADEQUATE PLATELET MORPHOLOGY (test code=PLTMORPH) NORMAL HGB [id number] 10:19:00 Test Item Value Reference Range Comments HEMOGLOBIN (test code=HGB) 6.0 G/DL 11.2-14.9 CALLED TO Sonia BABB HGB=6.0 & READBACK ON 04/05/18 AT 1016 BY Wander Wu HEMATOCRIT (test code=HCT) 19.4 % 33.2-43.5 CALLED TO Sonia BABB HCT=19.4& READBACK ON 04/05/18 AT 1019 BY Wander Wu DIFFERENTIAL [id number] 10:19:00 Test Item Value Reference Range Comments RBC MORPHOLOGY REQUIRED (test code=RBCM) PLATELET ESTIMATE (test code=PLTEST) ADEQUATE PLATELET MORPHOLOGY (test code=PLTMORPH) NORMAL HGB [id number] 10:19:00 Test Item Value Reference Range Comments HEMOGLOBIN (test code=HGB) 6.0 G/DL 11.2-14.9 CALLED TO Sonia BABB HGB=6.0 & READBACK ON 04/05/18 AT 1016 BY Wander Wu HEMATOCRIT (test code=HCT) 19.4 % 33.2-43.5 CALLED TO Sonia BABB HCT=19.4& READBACK ON 04/05/18 AT 1019 BY Wander Wu AB HEPATITIS B [id number] 09:17:00 Test Item Value Reference Range Comments AB HEPATITIS B SURFACE (test POSITIVE code=HBSAB) CLINICAL INTERPRETATION OF IMMUNE STATUS NEGATIVE: Inconsistent with immunity to HBV infection, less than 5.0 mIU/mL POSITIVE: Consistent with immunity to HBV infection, greater than 10.0 mIU/mL * HEPATITIS B SURF AB, [id number] 09:17:00 Test Item Value Reference Range Comments [...] HBV infection.~~~~~~~~~~~~~~~~~~ ~~~~~~~~~~~~~~~~~~~~~~~~~~~~ ~~~~~~~~~~~~~~ AG HEPATITIS B [id number] 09:17:00 Test Item Value Reference Range Comments AG HEPATITIS B SURFACE (test code=HBSAG) NEGATIVE NONREACTIVE AB HEPATITIS B [id number] 09:05:00 Test Item Value Reference Range Comments AB HEPATITIS B SURFACE (test code=HBSAB) HEPATITIS B SURF AB, [id number] 09:05:00 Test Item Value Reference Range Comments HEPATITIS B SURF AB, QUANT (test code=HBSABQ) mIU/mL AG HEPATITIS B [id number] 09:05:00 Test Item Value Reference Range Comments AG HEPATITIS B SURFACE (test code=HBSAG) NEGATIVE NONREACTIVE PROTHROMBIN [id number] 07:47:00 Test Item Value Reference Range Comments [...] systemic embolism. 3.0 - 4.5 CBC W/AUTO [id number] 06:13:00 Test Item Value Reference Range Comments [...] (test 0.0 K/mm3 0.0-0.1 code=NRBC#) BASIC METABOLIC [id number] 04:43:00 Test Item Value Reference Range Comments [...] (test code=CA) 8.4 MG/DL 8.4-10.2 B-TYPE NATRIURETIC [id number] 03:33:00 Test Item Value Reference Range Comments B-TYPE NATRIURETIC PEPTIDE (test code=BNP) > 5000.0 PG/ML 0-100 DIFFERENTIAL [id number] 03:28:00 Test Item Value Reference Range Comments RBC MORPHOLOGY REQUIRED (test code=RBCM) ABNORMAL POLYCHROMASIA (test code=POLC) FEW NONE HYPOCHROMIA (test code=HYPO) SLIGHT NONE POIKILOCYTOSIS (test code=POIK) FEW NONE ANISOCYTOSIS (test code=ANISO) SLIGHT NONE MICROCYTOSIS (test code=MICR) FEW NONE PLATELET ESTIMATE (test code=PLTEST) ADEQUATE ADEQUATE PLATELET MORPHOLOGY (test code=PLTMORPH) NORMAL HGB [id number] 03:28:00 Test Item Value Reference Range Comments HEMOGLOBIN (test code=HGB) 5.6 G/DL 11.2-14.9 CALLED TO STANFORD Fuentes RN & READBACK ON 04/05/18 AT 0253 BY Gordo Nolan HEMATOCRIT (test code=HCT) 18.3 % 33.2-43.5 CALLED TO STANFORD Fuentes RN & READBACK ON 04/05/18 AT 0253 BY Gordo Nolan DIFFERENTIAL [id number] 02:54:00 Test Item Value Reference Range Comments RBC MORPHOLOGY REQUIRED (test code=RBCM) PLATELET ESTIMATE (test code=PLTEST) ADEQUATE PLATELET MORPHOLOGY (test code=PLTMORPH) NORMAL HGB [id number] 02:54:00 Test Item Value Reference Range Comments HEMOGLOBIN (test code=HGB) 5.6 G/DL 11.2-14.9 CALLED TO STANFORD Fuentes RN & READBACK ON 04/05/18 AT 0253 BY Gordo Nolan HEMATOCRIT (test code=HCT) 18.3 % 33.2-43.5 CALLED TO STANFORD Fuentes RN & READBACK ON 04/05/18 AT 0253 BY Gordo Nolan DIFFERENTIAL [id number] 02:54:00 Test Item Value Reference Range Comments RBC MORPHOLOGY REQUIRED (test code=RBCM) PLATELET ESTIMATE (test code=PLTEST) ADEQUATE PLATELET MORPHOLOGY (test code=PLTMORPH) NORMAL HGB [id number] 02:54:00 Test Item Value Reference Range Comments HEMOGLOBIN (test code=HGB) 5.6 G/DL 11.2-14.9 CALLED TO STANFORD Fuentes RN & READBACK ON 04/05/18 AT 0253 BY Gordo Nolan HEMATOCRIT (test code=HCT) 18.3 % 33.2-43.5 CALLED TO STANFORD Fuentes RN & READBACK ON 04/05/18 AT 0253 BY Gordo Nolan CBC W/AUTO [id number] 23:36:00 Test Item Value Reference Range Comments [...] # (test 0.0 K/mm3 0.0-0.1 code=NRBC#) DIFFERENTIAL [id number] 23:36:00 Test Item Value Reference Range Comments RBC MORPHOLOGY REQUIRED (test code=RBCM) ABNORMAL HYPOCHROMIA (test code=HYPO) SLIGHT NONE POIKILOCYTOSIS (test code=POIK) FEW NONE ANISOCYTOSIS (test code=ANISO) SLIGHT NONE MICROCYTOSIS (test code=MICR) FEW NONE TARGET CELLS (test code=TGT) FEW NONE TEAR DROP CELLS (test code=TEAR) FEW NONE PLATELET ESTIMATE (test code=PLTEST) ADEQUATE ADEQUATE PLATELET MORPHOLOGY (test code=PLTMORPH) NORMAL NORMAL PROTHROMBIN [id number] 22:40:00 Test Item Value Reference Range Comments [...] systemic embolism. 3.0 - 4.5 BASIC METABOLIC [id number] 22:38:00 Test Item Value Reference Range Comments [...] (test code=CA) 8.6 MG/DL 8.4-10.2 HEPATIC FUNCTION [id number] 22:38:00 Test Item Value Reference Range Comments TOTAL PROTEIN (test code=PROT) 5.1 G/DL 6.3-8.2 ALBUMIN (test code=ALB) 2.9 G/DL 3.5-5.0 BILIRUBIN TOTAL (test code=BILT) 0.5 MG/DL 0.2-1.3 BILIRUBIN DIRECT (test code=BILD) 0.0 MG/DL 0.0-0.3 SGOT/AST (test code=AST) 42 UNITS/L 14-36 SGPT/ALT (test code=ALT) 43 UNITS/L 9-52 ALKALINE PHOSPHATASE (test code=ALKP) 78 UNITS/L 38-126 [id number] 22:38:00 Test Item Value Reference Range Comments LIPASE (test code=LIP) 308 UNITS/L 23-300 CBC W/AUTO [id number] 22:36:00 Test Item Value Reference Range Comments [...] # (test 0.0 K/mm3 0.0-0.1 code=NRBC#) DIFFERENTIAL [id number] 22:36:00 Test Item Value Reference Range Comments RBC MORPHOLOGY REQUIRED (test code=RBCM) PLATELET ESTIMATE (test code=PLTEST) ADEQUATE PLATELET MORPHOLOGY (test code=PLTMORPH) NORMAL CBC W/AUTO [id number] 22:36:00 Test Item Value Reference Range Comments WHITE BLOOD CELL (test 7.5 K/MM3 3.8-9.8 code=WBC) RED BLOOD CELL (test code=RBC) 2.23 M/MM3 3.58-4.97 HEMOGLOBIN (test code=HGB) 6.1 G/DL 11.2-14.9 CALLED TO [facility]NE & LALITO ON 04/04/18 AT 2229 BY Gordo Nolan [...] # (test 0.0 K/mm3 0.0-0.1 code=NRBC#) DIFFERENTIAL [id number] 22:36:00 Test Item Value Reference Range Comments RBC MORPHOLOGY REQUIRED (test code=RBCM) PLATELET ESTIMATE (test code=PLTEST) ADEQUATE PLATELET MORPHOLOGY (test code=PLTMORPH) NORMAL - XR CHEST [id number] 22:34:00 Patient Name: DALJIT JOHNSON Unit No: [id number] EXAMS: CPT CODE: [id number] XR CHEST 1V [id number] AFTER HOURS SERVICE ON: 04/04/2018 10:33 PM [...] Olive Padilla (RT) Transcrpt Date/Tm/Trnsp: 04/04/2018 (2233) [id number] Orig Print D/T: S: ([id number])[facility] NAME: DALJIT JOHNSON [address] PHYS: GAIL.V[place] - [place] [address] : 1931AGE: 88 SEX: F LOC: Z.ERS PHONE #: [phone] EXAM DATE: 04/04/2018 STATUS: REG ER FAX #: [phone] RADIOLOGY NO: PAGE 1 Signed Report
[2018-05-06 14:57] LABS: Arterial Blood Carboxyhemoglob 1.3 % (0-1.5); Blood Gas Oxyhemoglobin 97.5 % (94-97); Blood O2 Saturation 99.8 % (92-98.5)
[2018-05-06 15:24] LABS: Protime INR 1.04
[2018-05-06 15:27] LABS: Absolute Lymphocytes (CBC) 0.8 K/uL (0.7-4.9); Absolute Monocytes 0.6 K/uL (0.1-1.3); Absolute Neutrophil 3.1 K/uL (1.8-8.0); Basophils % 0.4 % (0-1.3); Eosinophils % 3.4 % (0-4.4); Hematocrit 34.8 % (36.0-45.0); Lymphocytes % 16.5 % (15.3-44.8); MPV 8.5 fL (7.6-11.3); Monocytes % 12.2 % (3.3-12.3); RBC Red Blood Cell Count 3.62 M/uL (3.86-4.86)
[2018-05-06 15:46] LABS: Albumin 3.1 g/dL (3.4-5.0); Bilirubin Direct 0.2 mg/dL (0-0.2); Bilirubin Total 0.4 mg/dL (0.2-1.0); Magnesium 2.3 mg/dL (1.8-2.4); Potassium 4.9 mmol/L (3.5-5.1); Protein, Total 5.8 g/dL (6.4-8.2); Troponin (Emerg Dept Use Only) 0.09 ng/mL (0.0-0.045)
--- NOTE | 2018-05-06 15:50 | EKG ---
Test Date: 2018-05-06 Test Time: 14:40:20 Management Developer: RENUKA MEASUREMENT RESULTS: Intervals: Rate: 60 [place]: QRSD: 128 QT: 450 QTc: 450 [place]: P: NJ: QRS: 32 T: 250 INTERPRETIVE STATEMENTS: SR...POSS ACUTE LATERAL WA Nonspecific intraventricular block T wave abnormality, consider inferior ischemia T wave abnormality, consider anterolateral ischemia Abnormal ECG Compared to ECG 04/28/2018 08:40:26 Uncertain supraventricular rhythm now present Sinus rhythm no longer present Atrial premature complex(es) no longer present T-wave abnormality still present Possible ischemia still present Electronically Signed On 05-06-18 15:49:52 CDT by Andrea Rao
--- NOTE | 2018-05-06 15:53 | RAD REPORT ---
EXAM DESCRIPTION: Td Single View05/06/2018 3:36 pm CLINICAL HISTORY: Shortness of breath COMPARISON: April 30, 2018 FINDINGS: Endotracheal tube has its tip well above the martinez. A nasogastric tube has its tip in the distal esophagus about 3 centimeters from the GE junction. Pacemaker leads in place Central venous catheter noted Heart is moderately enlarged. Small pleural effusions may be present. Lungs probably are clear of acute infiltrate. IMPRESSION: Endotracheal tube in good position Nasogastric tube with its tip in the distal esophagus
[2018-05-06] MEDS ORDERED: MIDAZOLAM HCL 2 MG/2 ML INJ ONE ×2 (16:18→20:01)
[2018-05-06] MEDS ORDERED: NOREPINEPHRINE 4mg/D5W 250mL 4 MG/250 ML BAG IV ONE ×2 (16:28→20:19)
[2018-05-06] MEDS ORDERED: FUROSEMIDE 40 MG/4 ML VIAL ONE (17:01)
--- NOTE | 2018-05-06 17:29 | ER ---
Nurse's Notes [facility] Name: Bárbara Thakkar Age: 88 yrs Sex: Female : 1930 Arrival Date: 05/06/2018 Time: 14:43 Bed 4 Private MD: Diagnosis: Respiratory arrest;Acute combined systolic (congestive) and diastolic (congestive) heart failure;Chronic obstructive pulmonary disease with (acute) exacerbation;Chronic kidney disease (CKD) Presentation: 05/06 14:35 Presenting complaint: EMS states: Respiratory distress, Room Air O2 saturation ss reportedly 50% at home. Pt intubated en route to ED by EMS. 14:35 Method Of Arrival: EMS: [facility] ss 14:35 Acuity: CECE 1 ss 14:35 Transition of care: patient was not received from another setting of care. Onset of ss symptoms was May 06, 2018. Risk Assessment: Do you want to hurt yourself or someone else? Patient reports no desire to harm self or others. Initial Sepsis Screen: Does the patient have a suspected source of infection? No. Patient's initial sepsis screen is negative. Historical: - Allergies: 15:16 acetylcysteine; ss 15:16 Ciprofloxacin; ss 15:16 Iodinated Contrast Media - IV Dye; ss 15:16 PENICILLINS; ss - PMHx: 15:16 COPD; ESRD; Hemodialysis-MWF; High Cholesterol; Hypertension; Pacemaker; ss - PSHx: 15:16 Dialysis catheter to left upper chest; Pacemaker; ss - Immunization history:: Adult Immunizations unknown. - Ebola Screening: : Unable to complete screening because. Screenin:19 Abuse screen: Denies threats or abuse. Denies injuries from another. Nutritional ph screening: No deficits noted. Tuberculosis screening: No symptoms or risk factors identified. Fall Risk None identified. Assessment: 14:15 General: Appears distressed, well groomed, well developed, well nourished. Neuro: Level sg of Consciousness is awake, obeys commands, orally intubated. Dial Marker are equal bilaterally. Cardiovascular: Capillary refill is sluggish in bilateral fingers toes. Respiratory: Airway is patent via oral airway via oral intubation Trachea midline Respiratory effort is relaxed, assisted with BVM Respiratory pattern is symmetrical. GI: Abdomen is round non-distended. Derm: Skin is pale. Derm: Bruising that is dark purple, brown, on right hand, left hand, right arm and left arm skin tear noted to Right AC area, cleaned and dressed. 14:15 General: Behavior is calm, quiet. Cardiovascular: Heart tones S1 S2 present Edema is 2+ sg to left midcalf, left ankle, left foot, left toes, right midcalf, right ankle, right foot and right toes. Respiratory: Airway is patent via oral airway via oral intubation Trachea midline Respiratory effort is relaxed, Respiratory pattern is symmetrical. Derm: Skin is pale. 14:15 Cardiovascular: Edema is 2+ to left midcalf, left ankle, left foot, left toes, right sg midcalf, right ankle, right foot and right toes. 15:40 Reassessment: NG tube advanced per XRAY imaging, gastric contents returned, verified sg with auscultation. Toney COLVIN notified. 15:42 Reassessment: Chito COLVIN notified of pt VSS, a central line has been set up at this sg time. 15:45 Reassessment: BAND SAW OPERATOR CAKE CUTTING at bedside for resp assessment. sg 15:48 Reassessment: pt attempting to remove Intubation tube at this time, pulling at gown, sg appears restless, pt calmed down easily with verbal instruction, Chito COLVIN notified and is at bedside. 15:51 Reassessment: V/O for arm restraints at this time. sg 16:30 Reassessment: Patient appears in no apparent distress at this time. Patient states sg symptoms have not improved. Respiratory: Airway is patent via oral airway via oral intubation Respiratory effort is assisted with mechanical ventilator Respiratory pattern is symmetrical. 17:30 Reassessment: Patient appears in no apparent distress at this time. pt remains sg ventilated, awaiting new orders at this time. 18:30 Reassessment: Patient appears in no apparent distress at this time. report given to babs Victor RN at [facility] Patient states symptoms have not improved. Respiratory: Airway is patent via oral airway via oral intubation Respiratory effort is remains mech vent Respiratory pattern is symmetrical. 19:00 General: Appears in no apparent distress. uncomfortable, Behavior is calm, quiet. Pain: rr5 Unable to use pain scale. Patient is intubated. 19:00 Neuro: Level of Consciousness is awake, intubated. Oriented to intubated. Dial Marker are rr5 equal bilaterally. Cardiovascular: Capillary refill is sluggish fingers toes pacemaker at right chest, HD access left chest. Edema is 2+ to lower extremities. Respiratory: Airway is patent via oral airway via oral intubation Trachea midline Respiratory effort is relaxed, Respiratory pattern is symmetrical. GI: Abdomen is round non-distended. : [place] in place. EENT: No signs and/or symptoms were reported regarding the EENT system. Derm: Skin is pale, Skin temperature is warm Bruising that is dark purple, brown, on right arm and left arm skin peeling right forearm, on 2 point restraint. Musculoskeletal: Capillary refill is sluggish. 19:00 Reassessment: awaiting for EMS for transfer in [facility]. rr5 19:02 Reassessment: Bedside report given to JOSSELYN Taylor. sg 19:50 Reassessment: Patient appears in no apparent distress at this time. patient is awake rr5 charge nurse informed ED provider with order made and carried out. 20:50 Reassessment: Patient appears in no apparent distress at this time. endorsed to EMS rr5 vitally stable. 20:50 Reassessment: endorsed to EMS. intubated patient hooked ventilator maintaining O2 rr5 saturation 100% . with NGT intact, pacemaker at right chest and HD access at left chest. skin peeled at right forearm, wound dressing done. salinas catheter connected to urine bag in place draining yellow clear urine, with 3 way right femoral catheter intact ongoing propofol drip at 5mcg/min and levophed drip at 2mcg/min infusing well. edema at lower extremities noted. 20:55 Reassessment: Mr.steven bernard [phone] informed patient transferred to [facility].rr5 Vital Signs: 15:18 BP 80 / 36; Pulse 59; Resp 16; Temp 95.1(C); Pulse Ox 100% on ETT vent; ph 15:30 BP 77 / 37; Pulse 61; Resp 16; Temp 96.1(C); Pulse Ox 100% on 50% FiO2 ETT vent; sg 15:55 BP 100 / 48; Pulse 60; Resp 16 A; Temp 96.1; Pulse Ox 99% on 50% FiO2 ETT vent; sg 16:00 BP 112 / 66; Pulse 60; Resp 17; Temp 96.1(C); Pulse Ox 100% on 50% FiO2 ETT vent; sg 16:00 BP 112 / 66; Pulse 60; Resp 17 A; Temp 98.0; Pulse Ox 100% on 50% FiO2 ETT vent; sg 16:05 BP 96 / 51; Pulse 60; Resp 17 S; Pulse Ox 100% on R/A; sg 16:10 BP 94 / 39; Pulse 62; Resp 16 A; Pulse Ox 100% on 50% FiO2 ETT vent; sg 16:10 Temp 96.3(C); sg 16:15 BP 88 / 39; Pulse 60; Resp 17; Pulse Ox 99% on 50% FiO2 ETT vent; sg 16:30 BP 91 / 42; Pulse 61; Resp 17 A; Pulse Ox 100% on 50% FiO2 ETT vent; Weight 65.77 kg; sg 16:35 BP 187 / 75; Pulse 66; Resp 17 S; Temp 96.5; Pulse Ox 100% on 50% FiO2 ETT vent; sg 16:40 BP 181 / 97; Pulse 62; Resp 17 A; Pulse Ox 100% on 50% FiO2 ETT vent; sg 16:45 BP 164 / 72; Pulse 61; sg 16:50 BP 150 / 75; Pulse 60; Resp 16; Pulse Ox 100% on 50% FiO2 ETT vent; sg 16:55 BP 108 / 45; Pulse 60; Temp 96.9(C); sg 17:00 BP 92 / 51; Pulse 62; Pulse Ox 100% on 50% FiO2 ETT vent; sg 17:05 BP 104 / 51; Pulse 60; Resp 17 A; Pulse Ox 99% on 50% FiO2 ETT vent; sg 17:15 BP 102 / 55; Pulse 60 MON; Resp 17; Temp 97.6(C); Pulse Ox 100% on 50% FiO2 ETT vent; sg 17:30 BP 113 / 44; Pulse 60 MON; Resp 16 A; Temp 98.0(C); Pulse Ox 100% on 50% FiO2 ETT vent; sg 18:00 BP 92 / 43; Pulse 60; Resp 16 A; Temp 98.9; Pulse Ox 100% on 40% FiO2 ETT vent; sg 18:30 BP 92 / 43; Pulse 62 MON; Resp 16 A; Temp 98.9; Pulse Ox 100% on 40% FiO2 ETT vent; sg 19:00 BP 91 / 50; Pulse 63; Resp 16; Temp 99.2; Pulse Ox 100% on ETT vent; rr5 19:30 BP 96 / 45; Pulse 63; Resp 16; Pulse Ox 100% on 40% FiO2 ETT vent; rr5 19:50 BP 118 / 84; Pulse 62; Resp 16; Pulse Ox 99% on 40% FiO2 ETT vent; rr5 20:24 BP 118 / 84; Pulse 65; Resp 16; Pulse Ox 100% on 40% FiO2 ETT vent; rr5 20:50 BP 134 / 75; Pulse 61; Resp 16; Pulse Ox 100% ; rr5 18:30 the blanket warmer has been removed sg Mikey Coma Score: 17:09 Eye Response: none(1). Verbal Response: none(1). Motor Response: none(1). Modifying jr8 Factors: Intubated. Total: 3. ED Course: 14:15 Arm band placed on. sg 14:30 Inserted saline lock: 22 gauge in right antecubital area, using aseptic technique. sg Blood collected. 14:43 Patient arrived in ED. ss 14:46 Toney Tierney PA is PHCP. jr8 14:47 Cosme Anguiano MD is Attending Physician. jr8 15:00 Second set of blood cultures drawn by ED staff. sg 15:12 First set of blood cultures drawn by ED staff. sg 15:15 Triage completed. ss 15:15 Brandi Decker, JOSSELYN is Primary Nurse. ph 15:18 Patient has correct armband on for positive identification. Placed in gown. Bed in low ph position. Side rails up X2. 15:19 EKG done, by relay technician. reviewed by Toney COLVIN. sm3 15:20 NGT: inserted 14 Fr. via left nare. verified placement of air over stomach, verified sg return of gastric contents, to intermittent suction. Returned gastric contents. Amount of gastric contents removed by suction 100ml. Patient tolerated well. 15:30 Sal[place] cath inserted, using sterile technique, 16 Fr., by co, balloon inflated, to ph gravity drainage, urine specimen collected. other Criticore Salinas inserted. 15:37 XRAY Chest (1 view) In Process Unspecified. EDMS 15:37 Rito Snyder, JOSSELYN is Primary Nurse. sg 15:40 Notified Nurse Practitioner and/or Physician Galvanizing Pot Runner of a critical lab result(s), 3.6 sg Lactate. 16:25 IV discontinued, intact, No redness/swelling at site. Pressure dressing applied. sg 19:00 No provider procedures requiring assistance completed. sg 19:00 Accessed received with 3 port femoral catheter in placed. rr5 Restraints: 15:51 Non-Violent Restraint: Order obtained. Initiated on May 06, 2018 at 15:55. sg 15:55 Non-Violent Restraint: Less restrictive alternatives attempted: 1:1 patient care, sg medicated for pain/anxiety, Alternative interventions: Ineffective. 16:00 Non-Violent Restraint: Non-Violent Restraint: Actions/Behavior observed: sg Confused/disoriented, repeated attempts to remove artifical airway/mechanical resp support. 18:00 Non-Violent Restraint: Actions/Behavior observed: repeated attempts to remove artifical sg airway/mechanical resp support, Alternative interventions: Ineffective. Administered Medications: 14:45 Drug: Versed 2 mg Route: IVP; Site: right antecubital; ph 15:00 Follow up: Response: No adverse reaction; Marked relief of symptoms sg 14:45 Drug: fentaNYL (PF) 50 mcg Route: IVP; Site: right antecubital; ph 15:30 Follow up: Response: No adverse reaction sg 15:16 Drug: Versed 2 mg Route: IM; Site: left deltoid; ph 15:30 Follow up: Response: No adverse reaction sg 16:15 Drug: Versed 2 mg Route: IVP; Site: right antecubital; sg 16:30 Follow up: Response: No adverse reaction; Marked relief of symptoms sg 16:25 Drug: Levophed (4 mg/250 mL D5W 0.5 mcg/min Route: IV; Rate: calculated rate; Site: sg right femoral; 16:41 Follow up: Rate change 0.25 mcg/min sg 16:50 Follow up: IV Status: Order to discontinue infusion sg 16:54 Drug: Lasix 40 mg Route: IVP; Site: right femoral; sg 17:49 Follow up: Response: No adverse reaction; No change in condition; no increase in sg urinary output noted at this time, will continue to monitor 17:34 Drug: Rocephin 1 grams Route: IV; Rate: calculated rate; Site: right femoral; sg 17:45 Follow up: Response: No adverse reaction; IV Status: Completed infusion sg 17:48 Drug: Zithromax 500 mg Route: IVPB; Infused Over: 1 hrs; Site: right femoral; sg 19:53 Drug: Versed 2 mg {Note: BP 101/47 given at right femoral catheter.} Route: IVP; Site: rr5 Other; 20:57 Follow up: Response: No adverse reaction rr5 20:16 Drug: Levophed (4 mg/250 mL D5W 4 mcg/min {Note: right femoral catheter BP105/75.} rr5 Route: IV; Rate: 2 mcg/min; Site: Other; 20:57 Follow up: IV Status: Infusion continued upon transfer rr5 20:24 Drug: Propofol 5 mcg/kg/min {Note: Right femoral catheter BP118/84 .} Route: IV; Rate: rr5 5 mcg/min; Site: Other; 20:57 Follow up: IV Status: Infusion continued upon transfer rr5 Intake: Outcome: 17:28 ER care complete, transfer ordered by MD. ferrari 18:30 Transferred Note: Report given to JOSSELYN Victor sg 20:58 Condition: stable rr5 20:59 Patient left the ED. rr5 Signatures: Dispatcher [employer] EDMS Rito Snyder RN RN sg Silvia Edwards RN RN ss Toney Tierney PA PA jr8 Brandi Decker RN RN Theresa Garcia [facility] Brandon Owusu, RN RN rr5 Corrections: (The following items were deleted from the chart) 15:20 14:35 Presenting complaint: EMS states: Respiratory distress, Room Air O2 saturation ss reportedly 50% at [facility]. Pt intubated en route to ED by EMS ss 16:33 16:25 Levophed (4 mg/250 mL D5W 4 mcg/min IV at calculated rate in right femoral sg sg 17:24 17:15 BP 102 / 55; Pulse 60bpm; MonitorResp 17bpm; Pulse Ox 100% RA; Temp 97.6F sg Catheter; sg 17:53 16:00 Non-Violent Restraint: sg sg 19:12 14:15 Respiratory: Airway is patent via oral airway via oral intubation Trachea midline sg Respiratory effort is relaxed, assisted with BVM Respiratory pattern is symmetrical, sg 19:12 14:15 Musculoskeletal: Swelling absent sg sg 19:13 14:15 Respiratory: Airway is patent via oral airway via oral intubation Trachea midline sg Respiratory effort is relaxed, assisted with BVM Respiratory pattern is symmetrical, sg 19:13 19:05 Reassessment: Bedside report given to JOSSELNY Taylor sg sg
--- NOTE | 2018-05-06 17:29 | EDPHYS ---
Physician Documentation [facility] Name: Bárbara Thakkar Age: 88 yrs Sex: Female : 1930 Arrival Date: 05/06/2018 Time: 14:43 Bed 4 Private MD: ED Physician Cosme Anguiano HPI: 05/06 17:09 This 88 yrs old Female presents to ER via EMS with complaints of Respiratory jr8 Distress. 17:09 The patient has shortness of breath at rest. Onset: The symptoms/episode began/occurred jr8 acutely, today. Duration: The symptoms are continuous, and are markedly worse than the original presentation. The patient's shortness of breath is aggravated by walking. Associated signs and symptoms: The patient has no apparent associated signs or symptoms. Severity of symptoms: At their worst the symptoms were severe. It is unknown whether or not the patient has had similar symptoms in the past. The patient has not recently seen a physician. Family stated that they were about to head to a doctors appointment for f/u from being released from hospital not to long ago. Stated that she had sudden onset shortness of breath and then collapsed. EMS was called and was intubated on scene . Historical: - Allergies: 15:16 acetylcysteine; ss 15:16 Ciprofloxacin; ss 15:16 Iodinated Contrast Media - IV Dye; ss 15:16 PENICILLINS; ss - PMHx: 15:16 COPD; ESRD; Hemodialysis-MWF; High Cholesterol; Hypertension; Pacemaker; ss - PSHx: 15:16 Dialysis catheter to left upper chest; Pacemaker; ss - Immunization history:: Adult Immunizations unknown. - Ebola Screening: : Unable to complete screening because. ROS: 17:09 Unable to obtain ROS due to patient is on ventilator. jr8 Exam: 17:09 Head/Face: Normocephalic, atraumatic. Eyes: Pupils equal round and reactive to light, jr8 extra-ocular motions intact. Lids and lashes normal. Conjunctiva and sclera are non-icteric and not injected. Cornea within normal limits. Periorbital areas with no swelling, redness, or edema. ENT: Nares patent. No nasal discharge, no septal abnormalities noted. Oropharynx with no redness, swelling, or masses, exudates, or evidence of obstruction, uvula midline. Mucous membranes moist. Neck: Trachea midline, no thyromegaly or masses palpated, and no cervical lymphadenopathy. Supple, full range of motion Cardiovascular: Regular rate and rhythm with a normal S1 and S2. No gallops, murmurs, or rubs. Normal PMI, no JVD. No pulse deficits. Edema to the arms and legs present 2 + Respiratory: Lungs have equal breath sounds bilaterally, clear to auscultation and percussion. No rales, rhonchi or wheezes noted. Abdomen/GI: Soft with normal bowel sounds. No distension or tympany. Skin: Warm, dry with normal turgor. Normal color with no rashes, no lesions, and no evidence of cellulitis. MS/ Extremity: Pulses equal, no cyanosis. Neurovascular intact. Full, normal range of motion. 17:09 Neuro: seizure activity, is not displayed by the patient, Abnormal movements: there are no abnormal movements. Vital Signs: 15:18 BP 80 / 36; Pulse 59; Resp 16; Temp 95.1(C); Pulse Ox 100% on ETT vent; ph 15:30 BP 77 / 37; Pulse 61; Resp 16; Temp 96.1(C); Pulse Ox 100% on 50% FiO2 ETT vent; sg 15:55 BP 100 / 48; Pulse 60; Resp 16 A; Temp 96.1; Pulse Ox 99% on 50% FiO2 ETT vent; sg 16:00 BP 112 / 66; Pulse 60; Resp 17; Temp 96.1(C); Pulse Ox 100% on 50% FiO2 ETT vent; sg 16:00 BP 112 / 66; Pulse 60; Resp 17 A; Temp 98.0; Pulse Ox 100% on 50% FiO2 ETT vent; sg 16:05 BP 96 / 51; Pulse 60; Resp 17 S; Pulse Ox 100% on R/A; sg 16:10 BP 94 / 39; Pulse 62; Resp 16 A; Pulse Ox 100% on 50% FiO2 ETT vent; sg 16:10 Temp 96.3(C); sg 16:15 BP 88 / 39; Pulse 60; Resp 17; Pulse Ox 99% on 50% FiO2 ETT vent; sg 16:30 BP 91 / 42; Pulse 61; Resp 17 A; Pulse Ox 100% on 50% FiO2 ETT vent; Weight 65.77 kg; sg 16:35 BP 187 / 75; Pulse 66; Resp 17 S; Temp 96.5; Pulse Ox 100% on 50% FiO2 ETT vent; sg 16:40 BP 181 / 97; Pulse 62; Resp 17 A; Pulse Ox 100% on 50% FiO2 ETT vent; sg 16:45 BP 164 / 72; Pulse 61; sg 16:50 BP 150 / 75; Pulse 60; Resp 16; Pulse Ox 100% on 50% FiO2 ETT vent; sg 16:55 BP 108 / 45; Pulse 60; Temp 96.9(C); sg 17:00 BP 92 / 51; Pulse 62; Pulse Ox 100% on 50% FiO2 ETT vent; sg 17:05 BP 104 / 51; Pulse 60; Resp 17 A; Pulse Ox 99% on 50% FiO2 ETT vent; sg 17:15 BP 102 / 55; Pulse 60 MON; Resp 17; Temp 97.6(C); Pulse Ox 100% on 50% FiO2 ETT vent; sg 17:30 BP 113 / 44; Pulse 60 MON; Resp 16 A; Temp 98.0(C); Pulse Ox 100% on 50% FiO2 ETT vent; sg 18:00 BP 92 / 43; Pulse 60; Resp 16 A; Temp 98.9; Pulse Ox 100% on 40% FiO2 ETT vent; sg 18:30 BP 92 / 43; Pulse 62 MON; Resp 16 A; Temp 98.9; Pulse Ox 100% on 40% FiO2 ETT vent; sg 19:00 BP 91 / 50; Pulse 63; Resp 16; Temp 99.2; Pulse Ox 100% on ETT vent; rr5 19:30 BP 96 / 45; Pulse 63; Resp 16; Pulse Ox 100% on 40% FiO2 ETT vent; rr5 19:50 BP 118 / 84; Pulse 62; Resp 16; Pulse Ox 99% on 40% FiO2 ETT vent; rr5 20:24 BP 118 / 84; Pulse 65; Resp 16; Pulse Ox 100% on 40% FiO2 ETT vent; rr5 20:50 BP 134 / 75; Pulse 61; Resp 16; Pulse Ox 100% ; rr5 18:30 the blanket warmer has been removed sg Mikey Coma Score: 17:09 Eye Response: none(1). Verbal Response: none(1). Motor Response: none(1). Modifying jr8 Factors: Intubated. Total: 3. MDM: 14:47 Patient medically screened. [facility] [place] 17:19 Data reviewed: vital signs, nurses notes, lab test result(s), EKG, radiologic studies, jr8 plain films. Counseling: I had a detailed discussion with the patient and/or guardian regarding: the historical points, exam findings, and any diagnostic results supporting the discharge/admit diagnosis, lab results, radiology results, the need to transfer to another facility, for higher level of care. 17:25 ED course: [facility] Dr. Hays accepted patient . [facility] [place] 05/06 14:47 Order name: Basic Metabolic Panel; Complete Time: 16:22 [facility] [place] 05/06 14:47 Order name: CBC with Diff [facility] [place] 05/06 14:47 Order name: LFT's; Complete Time: 16:22 [facility] [place] 05/06 14:47 Order name: Magnesium; Complete Time: 16:22 [facility] [place] 05/06 14:47 Order name: NT PRO-BNP; Complete Time: 16:22 [facility] [place] 05/06 14:47 Order name: PT-INR; Complete Time: 16:22 [facility] [place] 05/06 14:47 Order name: Troponin (emerg Dept Use Only); Complete Time: 16:22 [facility] [place] 05/06 14:47 Order name: XRAY Chest (1 view); Complete Time: 16:22 [facility] [place] 05/06 14:47 Order name: Blood Culture Adult (2) [facility] [place] 05/06 14:47 Order name: Lactate; Complete Time: 16:22 [facility] [place] 05/06 14:47 Order name: Procalcitonin; Complete Time: 16:22 [facility] [place] 05/06 14:48 Order name: ABG; Complete Time: 16:22 [facility] [place] 05/06 15:31 Order name: CBC Smear Scan [facility] 05/06 19:00 Order name: Lactate Sepsis 2 HR Follow-up [facility] 05/06 14:47 Order name: EKG; Complete Time: 14:48 [facility] [place] 05/06 14:47 Order name: Cardiac monitoring; Complete Time: 15:17 [facility] [place] 05/06 14:47 Order name: EKG - Nurse/Tech; Complete Time: 15:17 [facility] [place] 05/06 14:47 Order name: IV Saline Lock; Complete Time: 15:17 [facility] [place] 05/06 18:17 Order name: EKG Electrocardiogram [facility] 03/19 14:47 Order name: Labs collected and sent; Complete Time: 15:05/06 14:47 Order name: O2 Per Protocol; Complete Time: 15:05/06 14:47 Order name: O2 Sat Monitoring; Complete Time: 15:05/06 14:48 Order name: NG Tube; Complete Time: 15:05/06 15:17 Order name: Murdock; Complete Time: 15:18 ph Administered Medications: 14:45 Drug: Versed 2 mg Route: IVP; Site: right antecubital; ph 15:00 Follow up: Response: No adverse reaction; Marked relief of symptoms sg 14:45 Drug: fentaNYL (PF) 50 mcg Route: IVP; Site: right antecubital; ph 15:30 Follow up: Response: No adverse reaction sg 15:16 Drug: Versed 2 mg Route: IM; Site: left deltoid; ph 15:30 Follow up: Response: No adverse reaction sg 16:15 Drug: Versed 2 mg Route: IVP; Site: right antecubital; sg 16:30 Follow up: Response: No adverse reaction; Marked relief of symptoms sg 16:25 Drug: Levophed (4 mg/250 mL D5W 0.5 mcg/min Route: IV; Rate: calculated rate; Site: sg right femoral; 16:41 Follow up: Rate change 0.25 mcg/min sg 16:50 Follow up: IV Status: Order to discontinue infusion sg 16:54 Drug: Lasix 40 mg Route: IVP; Site: right femoral; sg 17:49 Follow up: Response: No adverse reaction; No change in condition; no increase in sg urinary output noted at this time, will continue to monitor 17:34 Drug: Rocephin 1 grams Route: IV; Rate: calculated rate; Site: right femoral; sg 17:45 Follow up: Response: No adverse reaction; IV Status: Completed infusion sg 17:48 Drug: Zithromax 500 mg Route: IVPB; Infused Over: 1 hrs; Site: right femoral; sg 19:53 Drug: Versed 2 mg {Note: BP 101/47 given at right femoral catheter.} Route: IVP; Site: rr5 Other; 20:57 Follow up: Response: No adverse reaction rr5 20:16 Drug: Levophed (4 mg/250 mL D5W 4 mcg/min {Note: right femoral catheter BP105/75.} rr5 Route: IV; Rate: 2 mcg/min; Site: Other; 20:57 Follow up: IV Status: Infusion continued upon transfer rr5 20:24 Drug: Propofol 5 mcg/kg/min {Note: Right femoral catheter BP118/84 .} Route: IV; Rate: rr5 5 mcg/min; Site: Other; 20:57 Follow up: IV Status: Infusion continued upon transfer rr5 Disposition: 05/07 05:54 Co-signature as Attending Physician, Cosme Anguiano MD I agree with the assessment and garth plan of care. Disposition: 05/06/18 17:28 Transfer ordered to [facility]. Diagnosis are Respiratory arrest, Acute combined systolic (congestive) and diastolic (congestive) heart failure, Chronic obstructive pulmonary disease with (acute) exacerbation, Chronic kidney disease (CKD). - Reason for transfer: Higher level of care. - Accepting physician is Dr. Hays. - Condition is Fair. - Problem is new. - Symptoms have improved. Signatures: Dispatcher [employer] EDRito Trevizo RN Cosme Ya MD MD cha Ballard, Brenda, RN RN Silvia Devine RN RN ss Toney Tierney PA PA jr8 Brandi Decker RN RN Julio Martínez MD MD ma2 Brandon Owusu RN RN rr5 Corrections: (The following items were deleted from the chart) 05/06 20:59 17:28 05/06/2018 17:28 Transfer ordered to [facility]. Diagnosis is rr5 Respiratory arrest; Acute combined systolic (congestive) and diastolic (congestive) heart failure; Chronic obstructive pulmonary disease with (acute) exacerbation; Chronic kidney disease (CKD). Reason for transfer: Higher level of care. Accepting physician is Dr. Hays. Condition is Fair. Problem is new. Symptoms have improved. jr8
[2018-05-06] MEDS ORDERED: CEFTRIAXONE/SWI 1gm 1 GM/10 ML SYR ONE (17:41)
[2018-05-06 17:51] LABS: Platelet Estimate ADEQ; Urine White Blood Cell Casts OK
[2018-05-06 17:52] LABS: Anisocytosis 2+; Blood Morphology Comment NOTED (NOT SEEN); Ovalocytes 1+
[2018-05-06] MEDS ORDERED: AZITHROMYCIN IV 500 MG in NA CHLORIDE 0.9% 250 ML IVPB ONE (18:00)
[2018-05-06] MEDS ORDERED: PROPOFOL 1,000 MG/100 ML VIAL IV ONE (20:16)
[2018-05-06 21:45] VITALS: TEMP 99.2
[2018-05-06 21:49] VITALS: O2SAT 100
[2018-05-06 21:50] VITALS: BP 134/75
--- NOTE | 2018-05-07 07:47 | EKG ---
Test Date: 2018-05-06 Test Time: 14:56:49 Ticket Attendant: RENUKA MEASUREMENT RESULTS: Intervals: Rate: 60 UT: 80 QRSD: 128 QT: 462 QTc: 462 Lytle: P: UT: 80 QRS: 25 T: 258 INTERPRETIVE STATEMENTS: Sinus rhythm Nonspecific intraventricular block T wave abnormality, consider inferior ischemia Abnormal Chest lead placement Abnormal ECG Compared to ECG 05/06/2018 14:40:20 Short UT interval now present T-wave abnormality still present Possible ischemia still present Electronically Signed On 05-07-18 07:46:46 CDT by Maxi Burnett
== END 2018-05-06 20:59 | disposition short-term general hospital (02) ==
LOC: ER 14:34
DX: R09.2 Respiratory arrest (principal); I50.41 Acute combined systolic (congestive) and diastolic (congestive) heart failure; J44.1 Chronic obstructive pulmonary disease with (acute) exacerbation; I12.0 Hypertensive chronic kidney disease with stage 5 chronic kidney disease or end stage renal disease; N18.6 End stage renal disease; Z88.0 Allergy status to penicillin; Z88.8 Allergy status to other drugs, medicaments and biological substances; Z95.0 Presence of cardiac pacemaker; Z99.2 Dependence on renal dialysis; Z91.041 Radiographic dye allergy status
CPT/HCPCS: 93005 ×2; 87040 ×2; 85025; 80048; 36415; 83735; 85610; 80076; 83605 ×2; 84484; 84145; 83880; 71045; 94002; 82805; 51702; 96372; 99291; 99292; J1940; J2704; J0456; J2250 ×2; J0696; 96365; 96375

== ENCOUNTER 2018-06-24 03:53 | Observation (INO) | payer OTHER ==
--- OUTSIDE RECORDS SUMMARY | 2018-06-24 03:58 | XMS REPORT | Clinical Summary ---
:1930 Author Organization [facility] Address [address] [place] [address] Care Team Providers Name Role Phone Pcp, No Primary Care Provider Unavailable Allergies Active Allergy Reactions Severity Noted Date Comments Acetylcysteine Low 04/24/2017 Other reaction(s): Shortness of breath Ciprofloxacin Other (See Comments) Low 04/24/2017 Other reaction(s): muscle spasm Iodinated Contrast- Oral Other (See Comments) 04/24/2017 And Iv Dye Penicillins Itching Low 04/24/2017 Medications Medication Sig Dispensed Refills Start Date End Date Status ascorbic acid, Take 250 mg by 0 Active vitamin C, mouth daily. (VITAMIN C) 250 MG tablet aspirin 81 MG Take 81 mg by 0 Active chewable tablet mouth daily. folic Take by mouth. 0 Active acid/multivit-min /lutein (CENTRUM SILVER ORAL) umeclidinium-jasmin Inhale 1 puff by 0 Active nterol (ANORO mouth via inhaler ELLIPTA) 62.5-25 daily . mcg/actuation DsDv pravastatin Take 80 mg by 0 Active (PRAVACHOL) 80 MG mouth daily. tablet carvedilol Take 25 mg by 0 Discontinued (COREG) 25 MG mouth nightly. 9 tablet ipratropium Take 500 mcg by 0 Discontinued (ATROVENT) 0.02 % nebulization 4 9 nebulizer (four) times solution daily. carvedilol Take 1 tablet 60 tablet 1 05/15/2018 Discontinued (COREG) 3.125 MG (3.125 mg total) 9 tablet by mouth 2 (two) times daily for 30 days. ipratropium Take 2.5 mLs (0.5 75 mL 0 05/15/2018 Discontinued (ATROVENT) 0.02 % mg total) by 9 nebulizer nebulization 2 solution (two) times daily. amiodarone Take 1 tablet 30 tablet 1 05/16/2018 Discontinued (PACERONE) 200 MG (200 mg total) by 9 tablet mouth daily for 30 days. amiodarone Take 1 tablet 30 tablet 1 05/16/2018 (PACERONE) 200 MG (200 mg total) by 9 tablet mouth daily for 30 days. carvedilol Take 1 tablet 60 tablet 1 05/15/2018 (COREG) 3.125 MG (3.125 mg total) 9 tablet by mouth 2 (two) times daily for 30 days. ipratropium Take 2.5 mLs (0.5 75 mL 0 05/15/2018 (ATROVENT) 0.02 % mg total) by 9 nebulizer nebulization 2 solution (two) times daily for 30 days. cephalexin Take 1 capsule 12 capsule 0 05/15/2018 (KEFLEX) 500 MG (500 mg total) by 9 capsule mouth every 8 (eight) hours for 4 days. famotidine Take 1 tablet (20 60 tablet 0 05/15/2018 (PEPCID) 20 MG mg total) by 9 tablet mouth 2 (two) times daily for 30 days. polyethylene Take 17 g by 510 g 0 05/16/2018 glycol (GLYCOLAX) mouth daily for 9 17 gram packet 30 days. sevelamer Take 2 tablets 180 tablet 0 05/15/2018 (RENVELA) 800 mg (1,600 mg total) 9 tablet by mouth 3 (three) times daily with meals for 30 days. Active Problems Problem Noted Date Heart failure 05/09/2018 AF (paroxysmal atrial fibrillation) 05/09/2018 Respiratory failure requiring intubation 05/06/2018 ESRD (end stage renal disease) Encounters Date Type Specialty Care Team Description 05/07/2018 Orders Only General Internal Medicine 05/07/2018 Travel 05/06/2018 - Hospital Cardiology Silvano Hays Acute respiratory failure with hypoxia (HCC); 05/15/2018 Encounter MD Michi Coronary artery disease involving [place] coronary artery of [place] heart without angina pectoris; Alma Delia Pradhan MD Acute on chronic systolic and diastolic heart failure, NYHA class 3 ([facility]); Hannah Lance Mixed hyperlipidemia; MD Geeta Respiratory failure requiring intubation ([facility]); Darryl ESRD (end stage renal disease) ([facility]); MD Tammie Essential hypertension; Atrial fibrillation, rapid ([facility]); Acute respiratory failure with hypoxemia ([facility]); COPD exacerbation ([facility]); AF (paroxysmal atrial fibrillation) ([facility]) 05/06/2018 Telephone Critical Care Silvano Hays [id number] MD Michi after 06/23/2017 Family History Medical History Relation Name Comments Diabetes Mother Heart attack Mother Relation Name Status Comments Father Mother Social History Tobacco Use Types Packs/Day Years Used Date Former Smoker Cigarettes 3 30 Smokeless Tobacco: Never Used Alcohol Use Drinks/Week oz/Week Comments Yes 4 Cans of beer 2.4 Alcohol Habits Answer Date Recorded How often do you have a drink containing 4 or more times a week 05/10/2018 alcohol? How many drinks containing alcohol do you have 3 or 4 05/10/2018 on a typical day when you are drinking? How often do you have six or more drinks on one Never 05/10/2018 occasion? Sex Assigned at Date Recorded Not on file Job Start Date Occupation Industry Not on file Not on file Not on file Travel History Travel Start Travel End No recent travel history available. Last Filed Vital Signs Vital Sign Reading Time Taken Blood Pressure 130/60 05/15/2018 11:00 AM CDT Pulse 68 05/15/2018 11:00 AM CDT Temperature 36.4 C (97.6 F) 05/15/2018 11:00 AM CDT Respiratory Rate 18 05/15/2018 11:00 AM CDT Oxygen Saturation 100% 05/15/2018 11:00 AM CDT Inhaled Oxygen Concentration 25% 05/09/2018 11:48 AM CDT Weight 46.2 kg (101 lb 12.8 oz) 05/15/2018 7:55 AM CDT Height 152.4 cm (5') 05/06/2018 11:30 PM CDT Body Mass Index 19.88 05/15/2018 7:55 AM CDT Plan of Treatment Not on file Procedures Procedure Name Priority Date/Time Associated Diagnosis Comments REPORT OF PROCEDURE - 05/19/2018 1:51 PM CDT ENDOSCOPY SCAN ARRYTHMIA IMPLANT 05/16/2018 2:10 PM CDT REPORT - SCAN RHYTHM STRIP - SCAN 05/16/2018 2:10 PM CDT ECG 12-LEAD Routine 05/15/2018 6:25 AM CDT Procedure Note - Interface, External Ris In - 05/15/2018 6:28 AM CDT Ventricular Rate 70 BPM Atrial Rate 71 BPM QRS Duration 144 ms Q-T Interval 452 ms QTC Calculation(Bazett) 488 ms R Prospect -46 degrees T Prospect 174 degrees Wide QRS rhythm Left bundle branch block Abnormal ECG When compared with ECG of 14-MAY-2018 19:57, Wide QRS rhythm has replaced Ectopic atrial rhythm ECG 12-LEAD Routine 05/15/2018 6:25 AM CDT CBC W/PLT COUNT & AUTO Routine 05/15/2018 5:49 AM CDT Results for this DIFFERENTIAL procedure are in the results section. CBC W/PLT COUNT & AUTO Routine 05/15/2018 5:49 AM CDT Results for this DIFFERENTIAL procedure are in the results section. PHOSPHORUS Routine 05/15/2018 5:49 AM CDT MAGNESIUM Routine 05/15/2018 5:49 AM CDT BASIC METABOLIC PANEL (7) Routine 05/15/2018 5:49 AM CDT ECG 12-LEAD Routine 05/14/2018 7:57 PM CDT ECG 12-LEAD Routine 05/14/2018 7:57 PM CDT Procedure Note - Interface, External Ris In - 05/14/2018 7:59 PM CDT Ventricular Rate 64 BPM Atrial Rate 64 BPM P-R Interval 178 ms QRS Duration 144 ms Q-T Interval 470 ms QTC Calculation(Bazett) 484 ms P Prospect 219 degrees R Prospect -29 degrees T Prospect 154 degrees Unusual P axis, possible ectopic atrial rhythm Non-specific intra-ventricular conduction block T wave abnormality, consider inferolateral ischemia Abnormal ECG When compared with ECG of 13-MAY-2018 01:34, Ectopic atrial rhythm has replaced Electronic atrial pacemaker T wave inversion less evident in Inferior leads HEMODIALYSIS INPATIENT Routine 05/14/2018 7:54 AM CDT CBC W/PLT COUNT & AUTO Routine 05/14/2018 6:05 AM CDT Results for this DIFFERENTIAL procedure are in the results section. CBC W/PLT COUNT & AUTO Routine 05/14/2018 6:05 AM CDT Results for this DIFFERENTIAL procedure are in the results section. PHOSPHORUS Routine 05/14/2018 6:05 AM CDT MAGNESIUM Routine 05/14/2018 6:05 AM CDT BASIC METABOLIC PANEL (7) Routine 05/14/2018 6:05 AM CDT OCCULT BLOOD, STOOL Routine 05/13/2018 3:20 PM CDT CBC W/PLT COUNT & AUTO Routine 05/13/2018 4:47 AM CDT Results for this DIFFERENTIAL procedure are in the results section. CBC W/PLT COUNT & AUTO Routine 05/13/2018 4:47 AM CDT Results for this DIFFERENTIAL procedure are in the results section. PHOSPHORUS Routine 05/13/2018 4:47 AM CDT MAGNESIUM Routine 05/13/2018 4:47 AM CDT BASIC METABOLIC PANEL (7) Routine 05/13/2018 4:47 AM CDT ECG 12-LEAD Routine 05/13/2018 1:34 AM CDT Procedure Note - Interface, External Ris In - 05/13/2018 8:27 AM CDT Ventricular Rate 60 BPM Atrial Rate 64 BPM QRS Duration 142 ms Q-T Interval 470 ms QTC Calculation(Bazett) 470 ms R Prospect -27 degrees T Prospect 197 degrees Atrial-paced rhythm Non-specific intra-ventricular conduction block T wave abnormality, consider inferolateral ischemia Abnormal ECG When compared with ECG of 12-MAY-2018 06:33, Electronic atrial pacemaker has replaced Sinus rhythm ECG 12-LEAD Routine 05/13/2018 1:34 AM CDT POCT-GLUCOSE METER Routine 05/12/2018 10:38 PM CDT POCT-GLUCOSE METER Routine 05/12/2018 6:12 PM CDT POCT-GLUCOSE METER Routine 05/12/2018 1:39 PM CDT ECG 12-LEAD Routine 05/12/2018 6:33 AM CDT Procedure Note - Interface, External Ris In - 05/12/2018 6:34 AM CDT Ventricular Rate 63 BPM Atrial Rate 63 BPM QRS Duration 138 ms Q-T Interval 476 ms QTC Calculation(Bazett) 487 ms R Prospect -40 degrees T Prospect 211 degrees Wide QRS rhythm Left axis deviation Left bundle branch block Abnormal ECG When compared with ECG of 12-MAY-2018 06:32, No significant change was found ECG 12-LEAD Routine 05/12/2018 6:33 AM CDT ECG 12-LEAD Routine 05/12/2018 6:32 AM CDT ECG 12-LEAD Routine 05/12/2018 6:32 AM CDT Procedure Note - Interface, External Ris In - 05/12/2018 6:34 AM CDT Ventricular Rate 63 BPM Atrial Rate 63 BPM QRS Duration 136 ms Q-T Interval 484 ms QTC Calculation(Bazett) 495 ms R Prospect -39 degrees T Prospect 212 degrees Wide QRS rhythm Left axis deviation Left bundle branch block Abnormal ECG When compared with ECG of 11-MAY-2018 08:57, Wide QRS rhythm has replaced Sinus rhythm POCT-GLUCOSE METER Routine 05/12/2018 6:28 AM CDT CBC W/PLT COUNT & AUTO Routine 05/12/2018 5:16 AM CDT Results for this DIFFERENTIAL procedure are in the results section. CBC W/PLT COUNT & AUTO Routine 05/12/2018 5:16 AM CDT Results for this DIFFERENTIAL procedure are in the results section. PHOSPHORUS Routine 05/12/2018 5:16 AM CDT MAGNESIUM Routine 05/12/2018 5:16 AM CDT BASIC METABOLIC PANEL (7) Routine 05/12/2018 5:16 AM CDT POCT-GLUCOSE METER Routine 05/12/2018 12:09 AM CDT HEMODIALYSIS INPATIENT Routine 05/11/2018 3:42 PM CDT POCT-GLUCOSE METER Routine 05/11/2018 12:55 PM CDT XR CHEST 1 VIEW STAT 05/11/2018 12:55 PM CDT Results for this PORTABLE/BEDSIDE procedure are in the results section. ULTRAFILTRATION HD CRRT Routine 05/11/2018 12:04 PM CDT B-TYPE NATRIURETIC FACTOR Routine 05/11/2018 11:44 AM CDT Results for this (BNP) procedure are in the results section. ECG 12-LEAD Routine 05/11/2018 8:57 AM CDT Procedure Note - Interface, External Ris In - 05/11/2018 10:36 AM CDT Ventricular Rate 68 BPM Atrial Rate 68 BPM P-R Interval 178 ms QRS Duration 134 ms Q-T Interval 464 ms QTC Calculation(Bazett) 493 ms P Prospect 79 degrees R Prospect -17 degrees T Prospect 195 degrees Suspect unspecified pacemaker failure Sinus rhythm with marked sinus arrhythmia Non-specific intra-ventricular conduction block T wave abnormality, consider inferolateral ischemia Abnormal ECG When compared with ECG of 10-MAY-2018 13:03, T wave inversion no longer evident in Anterior leads ECG 12-LEAD Routine 05/11/2018 8:57 AM CDT POCT-GLUCOSE METER Routine 05/11/2018 8:12 AM CDT CBC W/PLT COUNT & AUTO Routine 05/11/2018 3:24 AM CDT Results for this DIFFERENTIAL procedure are in the results section. CBC W/PLT COUNT & AUTO Routine 05/11/2018 3:24 AM CDT Results for this DIFFERENTIAL procedure are in the results section. PHOSPHORUS Routine 05/11/2018 3:24 AM CDT MAGNESIUM Routine 05/11/2018 3:24 AM CDT BASIC METABOLIC PANEL (7) Routine 05/11/2018 3:24 AM CDT POCT-GLUCOSE METER Routine 05/11/2018 12:11 AM CDT POCT-GLUCOSE METER Routine 05/10/2018 5:35 PM CDT ECG 12-LEAD Routine 05/10/2018 1:03 PM CDT POCT-GLUCOSE METER Routine 05/10/2018 12:33 PM CDT PT/APTT Routine 05/10/2018 11:06 AM CDT POCT-GLUCOSE METER Routine 05/10/2018 6:42 AM CDT CBC W/PLT COUNT & AUTO Routine 05/10/2018 4:38 AM CDT Results for this DIFFERENTIAL procedure are in the results section. CBC W/PLT COUNT & AUTO Routine 05/10/2018 4:38 AM CDT Results for this DIFFERENTIAL procedure are in the results section. PHOSPHORUS Routine 05/10/2018 4:38 AM CDT MAGNESIUM Routine 05/10/2018 4:38 AM CDT BASIC METABOLIC PANEL (7) Routine 05/10/2018 4:38 AM CDT APTT Routine 05/10/2018 4:34 AM CDT POCT-GLUCOSE METER Routine 05/09/2018 11:51 PM CDT POCT-GLUCOSE METER Routine 05/09/2018 5:31 PM CDT PT/APTT Routine 05/09/2018 3:17 PM CDT POCT-GLUCOSE METER Routine 05/09/2018 12:31 PM CDT ECG 12-LEAD STAT 05/09/2018 9:53 AM CDT ULTRAFILTRATION HD CRRT Routine 05/09/2018 7:19 AM CDT POCT-GLUCOSE METER Routine 05/09/2018 6:24 AM CDT XR CHEST 1 VIEW Routine 05/09/2018 5:45 AM CDT Results for this PORTABLE/BEDSIDE procedure are in the results section. CBC W/PLT COUNT & AUTO Routine 05/09/2018 4:45 AM CDT Results for this DIFFERENTIAL procedure are in the results section. CBC W/PLT COUNT & AUTO Routine 05/09/2018 4:45 AM CDT Results for this DIFFERENTIAL procedure are in the results section. PT/APTT STAT 05/09/2018 4:45 AM CDT HEPARIN ASSAY - STAT 05/09/2018 4:45 AM CDT Results for this UNFRACTIONATED procedure are in the results section. XR CHEST 1 VIEW Routine 05/09/2018 3:06 AM CDT Results for this PORTABLE/BEDSIDE procedure are in the results section. CBC W/PLT COUNT & AUTO Routine 05/09/2018 2:20 AM CDT Results for this DIFFERENTIAL procedure are in the results section. PT/APTT Routine 05/09/2018 2:20 AM CDT PROCALCITONIN Routine 05/09/2018 2:20 AM CDT CBC W/PLT COUNT & AUTO Routine 05/09/2018 2:20 AM CDT Results for this DIFFERENTIAL procedure are in the results section. PHOSPHORUS Routine 05/09/2018 2:20 AM CDT MAGNESIUM Routine 05/09/2018 2:20 AM CDT BASIC METABOLIC PANEL (7) Routine 05/09/2018 2:20 AM CDT PT/APTT STAT 05/09/2018 12:08 AM CDT POCT-GLUCOSE METER Routine 05/09/2018 12:07 AM CDT POCT-GLUCOSE METER Routine 05/08/2018 6:18 PM CDT CBC (HEMOGRAM ONLY) Routine 05/08/2018 5:34 PM CDT ECG 12-LEAD STAT 05/08/2018 12:47 PM CDT POCT-GLUCOSE METER Routine 05/08/2018 12:14 PM CDT HEMODIALYSIS INPATIENT Routine 05/08/2018 11:36 AM CDT PROCALCITONIN Routine 05/08/2018 9:24 AM CDT BLOOD GAS, ARTERIAL STAT 05/08/2018 9:24 AM CDT XR CHEST 1 VIEW STAT 05/08/2018 8:54 AM CDT Results for this PORTABLE/BEDSIDE procedure are in the results section. POCT-GLUCOSE METER Routine 05/08/2018 5:55 AM CDT CBC W/PLT COUNT & AUTO Routine 05/08/2018 4:40 AM CDT Results for this DIFFERENTIAL procedure are in the results section. TROPONIN I STAT 05/08/2018 4:40 AM CDT MAGNESIUM STAT 05/08/2018 4:40 AM CDT BASIC METABOLIC PANEL (7) Routine 05/08/2018 4:40 AM CDT CBC W/PLT COUNT & AUTO Routine 05/08/2018 4:40 AM CDT Results for this DIFFERENTIAL procedure are in the results section. FERRITIN Routine 05/08/2018 4:40 AM CDT IRON, TIBC, % SAT. (WITHOUT Routine 05/08/2018 4:40 AM CDT Results for this FERRITIN) procedure are in the results section. VITAMIN B12 AND FOLATE Routine 05/08/2018 4:40 AM CDT TSH/FREE T4 IF INDICATED Routine 05/08/2018 4:40 AM CDT LIPID PANEL Routine 05/08/2018 4:40 AM CDT POCT-GLUCOSE METER Routine 05/08/2018 12:07 AM CDT ECG 12-LEAD Routine 05/07/2018 9:53 PM CDT ECG 12-LEAD Routine 05/07/2018 9:53 PM CDT Procedure Note - Interface, External Ris In - 05/07/2018 10:00 PM CDT Ventricular Rate 74 BPM Atrial Rate 79 BPM QRS Duration 138 ms Q-T Interval 422 ms QTC Calculation(Bazett) 468 ms R Prospect -3 degrees T Prospect 212 degrees Wide QRS rhythm Non-specific intra-ventricular conduction block T wave abnormality, consider inferior ischemia T wave abnormality, consider anterolateral ischemia Abnormal ECG When compared with ECG of 07-MAY-2018 13:06, No significant change was found ECG 12-LEAD Routine 05/07/2018 9:52 PM CDT ECHOCARDIOGRAM REPORT - SCAN 05/07/2018 9:10 PM CDT HEMOGLOBIN AND HEMATOCRIT Routine 05/07/2018 6:42 PM CDT POCT-GLUCOSE METER Routine 05/07/2018 6:27 PM CDT HEMODIALYSIS INPATIENT Routine 05/07/2018 5:38 PM CDT HEPATITIS B SURFACE ANTIGEN STAT 05/07/2018 3:29 PM CDT 2D ECHO W/ DOPPLER STAT 05/07/2018 3:06 PM CDT Results for this (CW/PW/COLOR) procedure are in the results section. ECG 12-LEAD Routine 05/07/2018 1:06 PM CDT XR CHEST 1 VIEW STAT 05/07/2018 9:30 AM CDT Results for this PORTABLE/BEDSIDE procedure are in the results section. BLOOD GAS, VENOUS Routine 05/07/2018 9:13 AM CDT CBC W/PLT COUNT & AUTO Routine 05/07/2018 5:41 AM CDT Results for this DIFFERENTIAL procedure are in the results section. TROPONIN I Routine 05/07/2018 5:41 AM CDT LACTIC ACID, VENOUS Routine 05/07/2018 5:41 AM CDT CBC W/PLT COUNT & AUTO Routine 05/07/2018 5:41 AM CDT Results for this DIFFERENTIAL procedure are in the results section. MAGNESIUM Routine 05/07/2018 5:41 AM CDT BASIC METABOLIC PANEL (7) Routine 05/07/2018 5:41 AM CDT VANCOMYCIN LEVEL, RANDOM Routine 05/07/2018 5:41 AM CDT RESPIRATORY PANEL [facility] STAT 05/06/2018 11:45 PM CDT BLOOD CULTURE Routine 05/06/2018 11:27 PM CDT TROPONIN I STAT 05/06/2018 11:23 PM CDT B-TYPE NATRIURETIC FACTOR STAT 05/06/2018 11:23 PM CDT Results for this (BNP) procedure are in the results section. SPUTUM CULTURE + GRAM STAIN Routine 05/06/2018 11:20 PM CDT BLOOD GAS, ARTERIAL STAT 05/06/2018 11:17 PM CDT XR ABDOMEN 1 VIEW STAT 05/06/2018 11:10 PM CDT XR CHEST 1 VIEW STAT 05/06/2018 11:10 PM CDT Results for this PORTABLE/BEDSIDE procedure are in the results section. POCT-GLUCOSE METER Routine 05/06/2018 10:55 PM CDT URINALYSIS W/ REFLEX URINE Routine 05/06/2018 10:42 PM CDT Results for this CULTURE procedure are in the results section. URINE CULTURE Routine 05/06/2018 10:42 PM CDT CBC W/PLT COUNT & AUTO STAT 05/06/2018 10:34 PM CDT Results for this DIFFERENTIAL procedure are in the results section. OXYGEN SATURATION, MEASURED STAT 05/06/2018 10:34 PM CDT MAGNESIUM STAT 05/06/2018 10:34 PM CDT PT/APTT STAT 05/06/2018 10:34 PM CDT LACTIC ACID, ARTERIAL STAT 05/06/2018 10:34 PM CDT CBC W/PLT COUNT & AUTO STAT 05/06/2018 10:34 PM CDT Results for this DIFFERENTIAL procedure are in the results section. COMPREHENSIVE METABOLIC STAT 05/06/2018 10:34 PM CDT Results for this PANEL procedure are in the results section. after 06/23/2017 Results EKG-SCANNED (05/19/2018 1:51 PM CDT) Narrative Performed At ARRYTHMIA IMPLANT REPORT - SCAN (05/16/2018 2:10 PM CDT) Narrative Performed At RHYTHM STRIP - SCAN (05/16/2018 2:10 PM CDT) Narrative Performed At ECG 12 lead (05/15/2018 6:25 AM CDT)Only the most recent of12 resultswithin the time period is included. Specimen Narrative Performed At Ventricular Rate 70 BPM GE MUSE Atrial Rate 71 BPM QRS Duration 144 ms Q-T Interval 452 ms QTC Calculation(Bazett) 488 ms R Prospect -46 degrees T Prospect 174 degrees Sinus rhythm Left bundle branch block Abnormal ECG When compared with ECG of 14-MAY-2018 19:57, No significant change was found Confirmed by Vu CASTRO MICHAEL ([id number]) on 05/15/2018 7:23:26 AM Procedure Note Interface, External Ris In - 05/15/2018 7:23 AM CDT Ventricular Rate 70 BPM Atrial Rate 71 BPM QRS Duration 144 ms Q-T Interval 452 ms QTC Calculation(Bazett) 488 ms R Prospect -46 degrees T Prospect 174 degrees Sinus rhythm Left bundle branch block Abnormal ECG When compared with ECG of 14-MAY-2018 19:57, No significant change was found Confirmed by Vu CASTRO MICHAEL ([id number]) on 05/15/2018 7:23:26 AM Performing Organization Address City/State/Zipcode Phone Number GE MUSE CBC with platelet count + automated diff (05/15/2018 5:49 AM CDT)Only the most recent of11 resultswithin the time period is included. WBC 6.6 3.5 - 10.5 K/L [facility] RBC 3.38 (L) 3.93 - 5.22 M/L [facility] Hemoglobin 10.0 (L) 11.2 - 15.7 GM/DL [facility] Hematocrit 34.6 34.1 - 44.9 % [facility] MCV 102.4 (H) 79.4 - 94.8 fL [facility] MCH 29.6 25.6 - 32.2 pg [facility] MCHC 28.9 (L) 32.2 - 35.5 GM/DL [facility] RDW 19.6 (H) 11.7 - 14.4 % [facility] Platelets 129 (L) 150 - 450 K/CU MM [facility] MPV 11.0 9.4 - 12.3 fL [facility] nRBC 0 0 - 0 /100 WBC [facility] % Neutros 76 % [facility] % Lymphs 10 % [facility] % Monos 8 % [facility] % Eos 6 % [facility] % Baso 1 % [facility] # Neutros 5.04 1.56 - 6.13 K/L [facility] # Lymphs 0.64 (L) 1.18 - 3.74 K/L [facility] # Monos 0.50 (H) 0.24 - 0.36 K/L [facility] # Eos 0.36 0.04 - 0.36 K/L [facility] # Baso 0.03 0.01 - 0.08 K/L [facility] Immature 0 0 - 1 % [facility] Specimen Blood Performing Organization Address City/State/Zipcode Phone Number [address] [address] CENTER Phosphorus (05/15/2018 5:49 AM CDT)Only the most recent of7 resultswithin the time period is included. Phosphorus 3.2 2.3 - 4.7 mg/dL [facility] Specimen Blood Performing Organization Address City/State/Zipcode Phone Number [address] [address] [phone] CENTER Magnesium (05/15/2018 5:49 AM CDT)Only the most recent of10 resultswithin the time period is included. Magnesium 1.8 1.6 - 2.6 mg/dL [facility] Specimen Blood Performing Organization Address City/[facility]/Zipcode Phone Number [address] [phone] [place] Basic Metabolic Panel (05/15/2018 5:49 AM CDT)Only the most recent of9 resultswithin the time period is included. Sodium 138 136 - 145 meq/L [facility] Potassium 3.7 3.5 - 5.1 meq/L [facility] Chloride 103 98 - 107 meq/L [facility] CO2 26 22 - 29 meq/L [facility] BUN 12 7 - 21 mg/dL [facility] Creatinine 2.45 (H) 0.57 - 1.25 mg/dL [facility] Glucose 82 70 - 105 mg/dL [facility] Calcium 8.3 (L) 8.4 - 10.2 mg/dL [facility] EGFR 19Comment: ESTIMATED GFR IS mL/min/1.73 sq m [facility] NOT ACCURATE CREATININE [facility] CLEARANCE IN PREDICTING GLOMERULAR FILTRATION RATE. ESTIMATED GFR IS NOT APPLICABLE FOR DIALYSIS PATIENTS. Specimen Blood Performing Organization Address [facility] Cent[facility] Phone Number [address] [address] [place] Occult blood, stool (05/13/2018 3:20 PM CDT) Occult blood Positive (A) Negative [facility] Specimen Stool Performing Organization Address City/[facility]/Zipcode Phone Number [address] [address] [phone] [place] POC-Glucose meter (05/12/2018 10:38 PM CDT)Only the most recent of22 resultswithin the time period is included. POC-Glucose Meter 109Comment: TESTED AT 70 - 110 mg/dL [facility] [address] [place] [address] [place] [address] Specimen Blood Performing Organization Address City/State/Zipcode Phone Number [place] [place] [phone] [place] [address] CENTER HEMODIALYSIS INPATIENT (05/11/2018 3:42 PM CDT) Narrative Performed At Celi Gottlieb RN 05/11/20183:43 PM 2.5 hours UF completed. Net UF of 3 L. Pt tolerated tx. Reports given to primary RN. Lab Results Component Value Date GLUCOSE 93 05/11/2018 CALCIUM 8.2 (L) 05/11/2018 NA 139 05/11/2018 K 4.5 05/11/2018 CO2 26 05/11/2018 CL 103 05/11/2018 BUN 23 (H) 05/11/2018 CREATININE 2.34 (H) 05/11/2018 Lab Results Component Value Date WBC 7.7 05/11/2018 HGB 8.3 (L) 05/11/2018 HCT 28.9 (L) 05/11/2018 MCV 101.0 (H) 05/11/2018 PLT 145 (L) 05/11/2018 Lab Results Component Value Date HEPBSAG Nonreactive 05/07/2018 No results found for: HEPBSAB Allergies Allergen Reactions Iodinated Contrast- Oral And Iv Dye Other (See Comments) Acetylcysteine Other reaction(s): Shortness of breath Ciprofloxacin Other (See Comments) Other reaction(s): muscle spasm Penicillins Itching No chief complaint on file. Active Ambulatory Problems Diagnosis Date Noted No Active Ambulatory Problems Resolved Ambulatory Problems Diagnosis Date Noted No Resolved Ambulatory Problems Past Medical History: Diagnosis Date Atrial fibrillation (HCC) CHF (congestive heart failure) (HCC) COPD (chronic obstructive pulmonary disease) (HCC) ESRD (end stage renal disease) on dialysis (HCC) Heart attack (HCC) Hypertension Pacemaker PVD (peripheral vascular disease) (HCC) Upper GI bleed Past Surgical History: Procedure Laterality Date appendectomy arterial stents Bilateral legs cataract Bilateral PARTIAL HYSTERECTOMY Celi Gottlieb RN XR chest 1 view portable / bedside (05/11/2018 12:55 PM CDT)Only the most recent of6 resultswithin the time period is included. Specimen Narrative Performed At FINAL REPORT [facility] AP chest HISTORY: Shortness of breath. COMPARISON: 05/09/2017. IMPRESSION: Endotracheal tube removed. Dialysis catheter and AICD present. Cardiomegaly. Thoracic aortic ectasia. Clear lungs. Signed: Chance Lim MD Report Verified Date/Time:05/11/2018 13:55:01 Reading Location: [facility] C013 Transitional Reading Room Procedure Note Interface, External Ris In - 05/11/2018 1:57 PM CDT FINAL REPORT AP chest HISTORY: Shortness of breath. COMPARISON: 05/09/2017. IMPRESSION: Endotracheal tube removed. Dialysis catheter and AICD present. Cardiomegaly. Thoracic aortic ectasia. Clear lungs. Signed: Chance Lim MD Report Verified Date/Time: 05/11/2018 13:55:01 Reading Location: [facility] C013 Transitional Reading Room Performing Organization Address City/State/Zipcode Phone Number RIS ULTRAFILTRATION HD CRRT (05/11/2018 12:04 PM CDT) Narrative Performed At Keo Garibay MD 05/11/2018 12:13 PM Nephrology Progress Note Consulting Physician: Natalio Reason for consult: ESRD Patient: Daljit Johnson Room: 1405/01 Date: 05/11/2018 12:05 PM Length of Stay: 5 Assessment and Plan: Ms. Daljit Johnson is a 88 y.o. female withHeart failure + pulm hypertension, reduced ejection fraction and ESRD on hemodialysis at home thrice weekly under care of Dr. Kahn in [facility]. She was admitted for the third time tin past few months with acute resp distress requiring intubation. Renal consulted for HD /vol removal -ESRD on HD MWF; home hemo -We have dialyzed four times in hospital with 9 liters removed. Recently on 05/10. Today also with increased SOB though lungs are relatively clear at base. Will plan for dialysis today 05/11 with principally ultrafiltration of 1-2 liters. Rec CXR. -I suggested that she should plan for four times weekly dialysis upon discharge. -Electrolytes/Acid Base: Hypervolemic hyponatremia- resolved -Volume/HTN: Hypervolemic. BP acceptable Afib wth RVR-resolved. On metorpolol 12.5mg bid and amiodarone gtt -Anemia: Hb 8.5. Iron sat 21%. We jonathan give IVFe today. She is on ROMELIA at 3k units three times week. -MBD; -phos acceptable. -MEDS -onvitamin C at home, use is not recommended in ESRD due to risk of oxalate reabsorption. Keo Garibay MD [facility] Nephrology Faculty Valet, Training Program Office : [phone] 05/11/2018 12:05 PM Subjective Still c/o SOB upon sitting at side of chair. Not wanting to do PT. In good spirits and eating breakfast Review of System: Constitutional: negative for chills and fevers Eyes: negative for visual disturbance Ears, nose, mouth, throat, and face:negative for nasal congestion and sore throat Respiratory: negative for cough and dyspnea on exertion Cardiovascular: negative for chest pain and palpitations Gastrointestinal: negative for constipation, negative for abdominal pain, diarrhea and vomiting Genitourinary:negative for dysuria and hematuria Hematologic/lymphatic: , negative for bleeding and easy bruising Musculoskeletal:negative for arthralgias and myalgias Neurological: negative for headaches and weakness Behavioral/Psych: negative Endocrine: negative Home Medications: Prior to Admission medications Medication Sig Start Date End Date Taking? Authorizing Provider ascorbic acid, vitamin C, (VITAMIN C) 250 MG tablet Take 250 mg by mouth daily. Yes [place] MD aspirin 81 MG chewable tablet Take 81 mg by mouth daily. Yes [place] MD carvedilol (COREG) 25 MG tablet Take 25 mg by mouth nightly. Yes Cruz [place] MD folic acid/multivit-min/lutein (CENTRUM SILVER ORAL) Take by mouth. Yes Cruz [place] MD ipratropium (ATROVENT) 0.02 % nebulizer solution Take 500 mcg by nebulization 4 (four) times daily. Yes Cruz [place] MD pravastatin (PRAVACHOL) 80 MG tablet Take 80 mg by mouth daily. Yes [place] MD umeclidinium-vilanterol (ANORO ELLIPTA) 62.5-25 mcg/actuation DsDv Inhale 1 puff by mouth via inhaler daily . Yes Cruz [place] MD Current Hospital Medications: [id number] mg Oral BID 200 mg at 05/11/18 0948 mg Oral Daily 81 mg at 05/11/18 0949 icgusczogvsq907 mg Oral Daily 500 mg at 05/11/18 0949 cefTRIAXone1 g Intravenous Q24H Stopped at 05/11/18 1032 epoetin mannie-epbx3,000 Units Subcutaneous Once per day on Sat 3,000 Units at 05/10/18 2234 reijlnomcq90 mg Feed Tube Daily 20 mg at 05/11/18 0949 ipratropium0.5 mg Nebulization BID 0.5 mg at 05/10/18 1922 lidocaine1 mL Other - See Admin Instructions Once kcrfybfhx69 mL Other - See Admin Instructions Once polyethylene pwxjri68 g Oral Daily 17 g at 05/09/18 1057 brvampgvhao60 mg Oral Daily 80 mg at 05/11/18 0948 senna-docusate1 tablet Oral BID 1 tablet at 05/11/18 0948 sodium chloride 0.9% (NS) Stopped (05/10/18 0300) sodium chloride 0.9% (NS) sodium chloride 0.9% (NS) mannitol mannitol sodium chloride 0.9% (NS) sodium chloride 0.9% (NS) sodium chloride 0.9% (NS) sodium chloride 0.9% (NS) Family History: Family History Problem Relation Age of Onset Heart attack Mother Diabetes Mother Social History: Social History Socioeconomic History Marital status: Spouse name: Not on file Number of children: Not on file Years of education: Not on file Highest education level: Not on file Occupational History Not on file Social Needs Financial resource strain: Not on file Food insecurity: Worry: Not on file Inability: Not on file Transportation needs: Medical: Not on file Non-medical: Not on file Tobacco Use Smoking status: Former Smoker Packs/day: 3.00 Years: 30.00 Pack years: 90.00 Types: Cigarettes Smokeless tobacco: Never Used Substance and Sexual Activity Alcohol use: Yes Alcohol/week: 2.4 oz Types: 4 Cans of beer per week Frequency: 4 or more times a week Drinks per session: 3 or 4 Binge frequency: Never Drug use: No Sexual activity: Not on file Lifestyle Physical activity: Days per week: Not on file Minutes per session: Not on file Stress: Not on file Relationships Social connections: Talks on phone: Not on file Gets together: Not on file Attends sikhism service: Not on file Active member of club or organization: Not on file Attends meetings of clubs or organizations: Not on file Relationship status: Not on file Intimate partner violence: Fear of current or ex partner: Not on file Emotionally abused: Not on file Physically abused: Not on file Forced sexual activity: Not on file Other Topics Concern Not on file Social History Narrative Lives with son.Gets home dialysis. Hannah Lance MD 10:30 AM 05/10/18 Physical Exam: Patient Vitals for the past 24 hrs: BP Temp Temp src Pulse Resp SpO2 Weight 05/11/18 1130 131/72 96.6 F (35.9 C) Oral 61 20 100 % 52 kg (114 lb 10.2 oz) 05/11/18 0800 148/75 97.5 F (36.4 C) Oral 67 22 100 % 05/11/18 0534 143/72 97.4 F (36.3 C) Oral 62 22 100 % 05/11/18 0500 67 23 98 % 05/11/18 0400 142/74 60 21 99 % 05/11/18 0300 136/73 60 18 98 % 05/11/18 0100 137/70 60 24 99 % 05/11/18 0000 145/73 62 22 100 % 05/10/18 2300 130/71 60 24 100 % 05/10/18 2200 (!) 108/96 61 24 100 % 05/10/18 2100 109/74 68 20 99 % 05/10/18 2000 141/71 67 23 100 % 05/10/18 1922 64 17 99 % 05/10/18 1900 130/73 97.8 F (36.6 C) Oral 65 21 99 % 05/10/18 1800 (!) 157/136 65 23 98 % 05/10/18 1700 (!) 151/139 60 19 99 % 05/10/18 1600 143/70 61 20 100 % 05/10/18 1500 143/71 60 20 100 % 05/10/18 1400 138/72 61 24 100 % 05/10/18 1300 131/67 60 24 100 % Temp:[96.6 F (35.9 C)-97.8 F (36.6 C)] 96.6 F (35.9 C) Heart Rate:[60-68] 61 Resp:[17-24] 20 BP: (108-157)/(67-139) 131/72 Intake/Output Summary (Last 24 hours) at 05/11/2018 1205 Last data filed at 05/11/2018 1000 Gross per 24 hour Intake 735 ml Output 0 ml Net 735 ml Physical Exam vitals reviewed Gen: awake alert NAD Head: NC/AT, Eyes: sclera anicteric, PERRL ENT: no erythema or exudates in oropharynx CV: RRR, no m/r/g, 2+ pulses, Resp: coarse bs at base Abd: soft, ntnd, normoactive bowel sounds Neuro: CN 2-12 intact, no motor or sensory deficits noted Extremities: 2+ edema Skin: + bruises or rashes Review of data: Results for orders placed or performed during the hospital encounter of 05/06/18 (from the past 24 hour(s)) POC-Glucose meter Status: Abnormal Collection Time: 05/10/18 12:33 PM Result Value Ref Range POC-Glucose Meter 189 (H) 70 - 110 mg/dL POC-Glucose meter Status: Abnormal Collection Time: 195:35 PM Result Value Ref Range POC-Glucose Meter 186 (H) 70 - 110 mg/dL POC-Glucose meter Status: Abnormal Collection Time: 05/11/18 12:11 AM Result Value Ref Range POC-Glucose Meter 120 (H) 70 - 110 mg/dL Basic Metabolic Panel Status: Abnormal Collection Time: 193:24 AM Result Value Ref Range Sodium 139 136 - 145 meq/L Potassium 4.5 3.5 - 5.1 meq/L Chloride 103 98 - 107 meq/L CO2 26 22 - 29 meq/L BUN 23 (H) 7 - 21 mg/dL Creatinine 2.34 (H) 0.57 - 1.25 mg/dL Glucose 93 70 - 105 mg/dL Calcium 8.2 (L) 8.4 - 10.2 mg/dL EGFR 20 mL/min/1.73 sq m Magnesium Status: Normal Collection Time: :24 AM Result Value Ref Range Magnesium 1.9 1.6 - 2.6 mg/dL Phosphorus Status: Abnormal Collection Time: :24 AM Result Value Ref Range Phosphorus 5.1 (H) 2.3 - 4.7 mg/dL CBC with platelet count + automated diff Status: Abnormal Collection Time: 03/24/193:24 AM Result Value Ref Range WBC 7.7 3.5 - 10.5 K/L RBC 2.86 (L) 3.93 - 5.22 M/L Hemoglobin 8.3 (L) 11.2 - 15.7 GM/DL Hematocrit 28.9 (L) 34.1 - 44.9 % MCV 101.0 (H) 79.4 - 94.8 fL MCH 29.0 25.6 - 32.2 pg MCHC 28.7 (L) 32.2 - 35.5 GM/DL RDW 21.3 (H) 11.7 - 14.4 % Platelets 145 (L) 150 - 450 K/CU MM MPV 11.0 9.4 - 12.3 fL nRBC 0 0 - 0 /100 WBC % Neutros 79 % % Lymphs 11 % % Monos 9 % % Eos 0 % % Baso 0 % # Neutros 6.07 1.56 - 6.13 K/L # Lymphs 0.87 (L) 1.18 - 3.74 K/L # Monos 0.66 (H) 0.24 - 0.36 K/L # Eos 0.02 (L) 0.04 - 0.36 K/L # Baso 0.01 0.01 - 0.08 K/L Immature Granulocytes-Relative 1 0 - 1 % POC-Glucose meter Status: Normal Collection Time: 198:12 AM Result Value Ref Range POC-Glucose Meter 107 70 - 110 mg/dL B-type Natriuretic Factor (BNP) (05/11/2018 11:44 AM CDT)Only the most recent of2 resultswithin the time period is included. BNP 13,553 (H) 0 - 100 pg/mL [facility] Specimen Blood Performing Organization Address City/State/Zipcode Phone Number [facility] [address] [place] [address] [phone] CENTER PT/aPTT (05/10/2018 11:06 AM CDT)Only the most recent of6 resultswithin the time period is included. Protime 15.0 (H) 11.7 - 14.7 seconds [facility] INR 1.1 <=5.9 [facility] PTT 41.5 (H) 22.5 - 36.0 seconds [facility] Specimen Blood Narrative Performed At RECOMMENDED COUMADIN/WARFARIN INR THERAPY [facility] RANGES STANDARD DOSE: 2.0 - 3.0 Includes: PROPHYLAXIS for venous thrombosis, systemic embolization; TREATMENT for venous thrombosis and/or pulmonary embolus. HIGH RISK: Target INR is 2.5-3.5 for patients with mechanical heart valves. Performing Organization Address [facility] Phone Number [address] [address] [place] aPTT (05/10/2018 4:34 AM CDT) PTT 28.8 22.5 - 36.0 seconds [facility] Specimen Blood Performing Organization Address [facility] Number [address] [address] [phone] [place] Heparin Assay - Unfractionated (05/09/2018 4:45 AM CDT) Anti 10A-Unfractionated 0.16 (L) 0.30 - 0.70 u/ml [facility] Heparin [facility] Specimen Blood Narrative Performed At Recommendations for Monitoring Unfractionated [facility] Heparin Therapeutic Range: 0.3-0.7 u/mL with continuous IV infusion Performing Organization Address [facility] Number [address] [address] [place] Procalcitonin (05/09/2018 2:20 AM CDT)Only the most recent of2 resultswithin the time period is included. Procalcitonin 0.29 (H) <0.05 ng/mL [facility] Specimen Blood Narrative Performed At SEPSIS RISK (ng/mL) [facility] Low:0.05-0.50 Intermediate: 0.51-2.00 High: >=2.01 Performing Organization Address [facility]/Zipcode Phone Number [facility] [address] [place] [address] [place] CBC (Hemogram only) (05/08/2018 5:34 PM CDT) WBC 6.3 3.5 - 10.5 K/L [facility] RBC 3.12 (L) 3.93 - 5.22 M/L [facility] Hemoglobin 9.1 (L) 11.2 - 15.7 GM/DL [facility] Hematocrit 30.6 (L) 34.1 - 44.9 % [facility] MCV 98.1 (H) 79.4 - 94.8 fL [facility] MCH 29.2 25.6 - 32.2 pg [facility] MCHC 29.7 (L) 32.2 - 35.5 GM/DL [facility] RDW 21.8 (H) 11.7 - 14.4 % [facility] Platelets 147 (L) 150 - 450 K/CU MM [facility] MPV 10.5 9.4 - 12.3 fL [facility] nRBC 0 0 - 0 /100 WBC [facility] Specimen Blood Performing Organization Address City/State/Zipcode Phone Number [facility] [address] [place] [address] [place] Blood gas, arterial (05/08/2018 9:24 AM CDT)Only the most recent of2 resultswithin the time period is included. pH, Arterial 7.42 7.35 - 7.45 [facility] pCO2, Arterial 39 35 - 45 mmHg [facility] pO2, Arterial 64 (L) 80 - 90 mmHg [facility] O2 Sat, Arterial 92.6 (L) 96.0 - 97.0 % [facility] HCO3, Arterial 25 21 - 29 mmol/L [facility] Base Excess, Arterial 0.6 -2.0 - 3.0 mmol/L [facility] Patient Temperature 37.2 C [facility] FIO2 24.0 % [facility] Specimen Blood, Arterial Performing Organization Address City/[facility] Phone Number [address] [address] [place] Vitamin B12 and Folate (05/08/2018 4:40 AM CDT) Vitamin B12 677 213 - 816 pg/mL [facility] Folate 15.9 >=7.0 ng/mL [facility] Specimen Blood Performing Organization Address [facility] Phone Number [address] [address] [place] TSH/Free T4 If Indicated (05/08/2018 4:40 AM CDT) TSH 1.73 0.35 - 4.94 uIU/mL [facility] Specimen Blood Performing Organization Address [facility] Phone Number [address] [address] [facility] Iron, TIBC, % sat. (without ferritin) (05/08/2018 4:40 AM CDT) Iron 29.0 (L) 40.0 - 160.0 ug/dL [facility] TIBC 138 (L) 250 - 450 ug/dL [facility] Iron % Saturation 21 20 - 55 % [facility] Specimen Blood Performing Organization Address [facility] Phone Number [address] [address] [phone] [facility] Troponin I (05/08/2018 4:40 AM CDT)Only the most recent of3 resultswithin the time period is included. Troponin I 0.28 (HH) 0.00 - 0.03 ng/mL [facility] Specimen Blood Narrative Performed At Troponin I (TnI) levels must be interpreted [facility] in the context of the presenting symptoms and the clinical findings. Elevated TnI levels indicate myocardial damage, but are not specific for ischemic heart disease. Elevated TnI levels are seen in patients with other cardiac conditions (including myocarditis and congestive heart failure), and slight TnI elevations occur in patients with other conditions, including sepsis, renal failure, acidosis, acute neurological disease, and persistent tachyarrhythmia. Performing Organization Address City/[facility] Phone Number [address] [address] [place] Ferritin (05/08/2018 4:40 AM CDT) Ferritin 577 (H) 5 - 275 ng/mL [facility] Specimen Blood Performing Organization Address [facility] Phone Number [address] [address] [place] Lipid panel (05/08/2018 4:40 AM CDT) Triglycerides 77 mg/dL [facility] Cholesterol 93 mg/dL [facility] HDL 42 mg/dL [facility] LDL Calculated 36 mg/dL [facility] Specimen Blood Narrative Performed At Triglyceride Reference Range: [facility] Low Risk <150 Zffwzzhvcf247-653 High Risk 200-499 Very High Risk>=500 Cholesterol Reference Range: Low Risk <200 Useaepsjsy422-548 High Risk>240 HDL Cholesterol Reference Range: Low Risk >=60 High Risk <40 LDL Cholesterol Reference Range: Optimal<100 Near Ajpnqpe345-100 Mekwnjtlqc791-053 Yzjx452-104 Very High >=190 Performing Organization Address [facility] Phone Number [address] [address] [place] ECHOCARDIOGRAM REPORT - SCAN (05/07/2018 9:10 PM CDT) Narrative Performed At Hemoglobin and hematocrit (05/07/2018 6:42 PM CDT) Hemoglobin 9.1 (L) 11.2 - 15.7 GM/DL [facility] Hematocrit 29.7 (L) 34.1 - 44.9 % [facility] Specimen Blood Performing Organization Address City/[facility]/Zipcode Phone Number [facility] [address] [place] [address] CENTER HEMODIALYSIS INPATIENT (05/07/2018 5:38 PM CDT) Narrative Performed At Koe Garibay MD 05/07/20185:39 PM 05/07/2018 I have personally seen and examined Daljit Johnson on dialysis Indication : ESRD Prescription: F160, 3-4 hrs, 2.0K, 2.5 Ca, UF 3L Reason for exam: BP fluctuation & adjust dry weight Tolerating dialysis ok Awake, alert, intubated, follows all commands. Pale appearance. Access: tunneled dialysis catheter. Keo Garibay MD Office [phone] 05/07/2018 5:38 PM Hepatitis B surface antigen (05/07/2018 3:29 PM CDT) hepatitis B Surface Ag NON-REACTIVE Nonreactive [facility] Specimen Blood Performing Organization Address City/[facility]/Zipcode Phone Number [address] [address] [place] 2D Echo W/Doppler(CW/PW/Color) (05/07/2018 3:06 PM CDT) Ejection Fraction [facility] [facility] Specimen Narrative Performed At Transthoracic Echocardiography Report (TTE) [facility] ECHO HEARTLAB [employer] [facility] Demographics Patient Name Nickie JOHNSON of Study 05/07/2018 [id number] GenderFemale Visit Number [id number] Unknown [id number] Room Number 7405 Number Date of Birth1930Referring Physician Silvano Hays Age88 year(s)C[employer] P[employer] Supervisor Toni Young InterpretingSteplavon Swartz Physician Fellow EMILY [place] Procedure Type of Study TTE procedure:2DECHO W DOPPLER(CW/PW/COLOR) (STAT) Indications:Respiratory failure or hypoxemia . Clinical History HGB 9.2 HCT 30.2 % COPD, ESRD, CHF SYSTOLIC AND DIASTOLIC, AICD, HFrEF/HFpEF, HX OF CARDIAC ARREST X2 Height: 60 inches Weight: 56.7 kg (125 lbs) BSA: 1.53 m^2 BMI: 24.41 kg/m^2 HR: 68 bpm BP: 131/55 mmHg Summary 1. The left ventricle is chamber size (by vol index) is mildly enlarged. Basal inferior and basal inferoseptum is akinetic. The remaining LV wall segments are mildly hypokinetic. LVEF by Liang's method of disk assessment is mildly reduced (40-44%) . 2. Severe MV leaflet calcification. Severe mitral annular calcification. Severe mitral regurgitation. 3. Estimated peak systolic PA pressure is at least 35 mmHg +RA pressure. Previous Study No prior studies available for comparison. Signature Findings Left Ventricle The LV endocardium is incompletely visualized. Co nsider IV ultrasound enhancing agent for improved en docardial border detection. Th e left ventricle is chamber size (by vol index) is mildly enlarged. Mo derate concentric LV hypertrophy. Ba tod inferior and basal inferoseptum are akinetic. Th e remaining LV wall segments are mildly hy pokinetic. LV EF by Liang's method of disk assessment is mi ldly reduced (40-44%) . Left AtriumLA size is severely enlarged . Right VentricleThe right ventricular chamber size and systolic fu nction are within normal limits. RV pacing wire is visualized . Right Atrium RA cavity size is severely enlarged . Aortic Valve Moderate AoV cusp thickening and calcification. Mo derate annular calcification. No evidence of aortic stenosis. A trace of aortic regurgitation. Mitral Valve Moderate MV leaflet thickening. Severe MV leaflet ca lcification. Severe mitral annular calcification. Se nilsa mitral regurgitation. Tricuspid ValveA trace of tricuspid regurgitation. Es timated peak systolic PA pressure is at least 35 mm Hg +RA pressure. Pulmonic Valve PV is not well visualized; function appears normal by Doppler visualized. AortaAortic root size (SInus of Valsalva diameter) is no rmal . PericardiumNo evidence of pericardial effusion. IVC/SVC/PA/PV/PleuralThe estimated RA pressure by IVC dynamics 11-15mmHg . Re versed systolic flow is noted in the left upper pu lmonary vein. Chambers/Structures Left Atrium LA Volume: 92.68 ml LA Vol. Index: 61 ml/m^2 Left Ventricle LVIDd: 4.54 cm LVEDV:150.11 ml LVIDs: 3.29 cm LV Septum Diastolic: 1.61 cm LV PW Diastolic: 1.37 cm LV Length: 8.03 cm LVEDV Liang's:134.28 mlLV FS: 27.5 % LVESV Liang's:82.69 ml LVEF Liang's: 38.4 % LVEDVI: 88 ml/m^2 LVES : 54 ml/m^2 LVOT Diameter: 2.1 cm Doppler/Quantitative Measurements Mitral Valve MV Peak E-Wave: 1.46 m/sMV Peak A-Wave: 1.34 m/s E/A Ratio: 1.09 Mean Velocity: 0.86 m/s Peak Gradient: 8.5 mmHg Mean Gradient: 3.33 mmHgDeceleration Time: 212.4 msec Area (continuity): 2.22 cm^2 MV VTI: 50.78 cm MV Marco Antonio. Peak: 1.43 m/s Aortic Valve Peak Velocity: 1.6 m/s Mean Velocity: 1.11 m/s Peak Gradient: 10.3 mmHg Mean Gradient: 5.39 mmHg AV Area (continuity): 3.15 cm^2 AV VTI: 35.77 cm AV DVI: 0.91 LVOT Peak Velocity: 1.2 m/sPeak Gradient: 5.75 mmHg Mean Velocity: 0.85 m/s Mean Gradient: 3.2 mmHg LVOT Diameter: 2.1 cm LVOT VTI: 32.59 cm LVOT Area: 3.46 cm^2LVOT SV:112.82 ml LVOT CO: 7.67 l/min LVOT CI: 5.01 l/min/m^2 Tricuspid Valve TR Velocity: 2.54 m/s TR Gradient: 25.8 mmHg Procedure Note Interface, External Ris In - 05/07/2018 5:25 PM CDT Transthoracic Echocardiography Report (TTE) Demographics Patient Name DALJIT JOHNSON Date of Study 05/07/2018 Gender Female Visit Number [id number] Race Unknown Room Number 7405 Number Date of 1930 Referring Physician Silvano Hays Age 88 year(s) [employer]ing And P[employer] Supervisor Toni Young Interpreting Carole Swartz Physician Fellow EMILY [place] Procedure Type of Study TTE procedure:2DECHO W DOPPLER(CW/PW/COLOR) (STAT) Indications:Respiratory failure or hypoxemia . Clinical History HGB 9.2 HCT 30.2 % COPD, ESRD, CHF SYSTOLIC AND DIASTOLIC, AICD, HFrEF/HFpEF, HX OF CARDIAC ARREST X2 Height: 60 inches Weight: 56.7 kg (125 lbs) BSA: 1.53 m^2 BMI: 24.41 kg/m^2 HR: 68 bpm BP: 131/55 mmHg Summary 1. The left ventricle is chamber size (by vol index) is mildly enlarged. Basal inferior and basal inferoseptum is akinetic. The remaining LV wall segments are mildly hypokinetic. LVEF by Liang's method of disk assessment is mildly reduced (40-44%) . 2. Severe MV leaflet calcification. Severe mitral annular calcification. Severe mitral regurgitation. 3. Estimated peak systolic PA pressure is at least 35 mmHg +RA pressure. Previous Study No prior studies available for comparison. Signature Findings Left Ventricle The LV endocardium is incompletely visualized. Consider IV ultrasound enhancing agent for improved endocardial border detection. The left ventricle is chamber size (by vol index) is mildly enlarged. Moderate concentric LV hypertrophy. Basal inferior and basal inferoseptum are akinetic. The remaining LV wall segments are mildly hypokinetic. LVEF by Liang's method of disk assessment is mildly reduced (40-44%) . Left Atrium LA size is severely enlarged . Right Ventricle The right ventricular chamber size and systolic function are within normal limits. RV pacing wire is visualized . Right Atrium RA cavity size is severely enlarged . Aortic Valve Moderate AoV cusp thickening and calcification. Moderate annular calcification. No evidence of aortic stenosis. A trace of aortic regurgitation. Mitral Valve Moderate MV leaflet thickening. Severe MV leaflet calcification. Severe mitral annular calcification. Severe mitral regurgitation. Tricuspid Valve A trace of tricuspid regurgitation. Estimated peak systolic PA pressure is at least 35 mmHg +RA pressure. Pulmonic Valve PV is not well visualized; function appears normal by Doppler visualized. Aorta Aortic root size (SInus of Valsalva diameter) is normal . Pericardium No evidence of pericardial effusion. IVC/SVC/PA/PV/Pleural The estimated RA pressure by IVC dynamics 11-15mmHg . Reversed systolic flow is noted in the left upper pulmonary vein. Chambers/Structures Left Atrium LA Volume: 92.68 ml LA Vol. Index: 61 ml/m^2 Left Ventricle LVIDd: 4.54 cm LVEDV:150.11 ml LVIDs: 3.29 cm LV Septum Diastolic: 1.61 cm LV PW Diastolic: 1.37 cm LV Length: 8.03 cm LVEDV Liang's:134.28 ml LV FS: 27.5 % LVESV Liang's:82.69 ml LVEF Liang's: 38.4 % LVEDVI: 88 ml/m^2 LVESVI: 54 ml/m^2 LVOT Diameter: 2.1 cm Doppler/Quantitative Measurements Mitral Valve MV Peak E-Wave: 1.46 m/s MV Peak A-Wave: 1.34 m/s E/A Ratio: 1.09 Mean Velocity: 0.86 m/s Peak Gradient: 8.5 mmHg Mean Gradient: 3.33 mmHg Deceleration Time: 212.4 msec Area (continuity): 2.22 cm^2 MV VTI: 50.78 cm MV Marco Antonio. Peak: 1.43 m/s Aortic Valve Peak Velocity: 1.6 m/s Mean Velocity: 1.11 m/s Peak Gradient: 10.3 mmHg Mean Gradient: 5.39 mmHg AV Area (continuity): 3.15 cm^2 AV VTI: 35.77 cm AV DVI: 0.91 LVOT Peak Velocity: 1.2 m/s Peak Gradient: 5.75 mmHg Mean Velocity: 0.85 m/s Mean Gradient: 3.2 mmHg LVOT Diameter: 2.1 cm LVOT VTI: 32.59 cm LVOT Area: 3.46 cm^2 LVOT SV:112.82 ml LVOT CO: 7.67 l/min LVOT CI: 5.01 l/min/m^2 Tricuspid Valve TR Velocity: 2.54 m/s TR Gradient: 25.8 mmHg Performing Organization Address [facility] Cent[facility]ode Phone Number [facility] Blood gas, venous (05/07/2018 9:13 AM CDT) pH, Riky 7.41 7.32 - 7.42 [facility] pCO2, Riky 41 41 - 51 mmHg [facility] pO2, Riky 26 25 - 40 mmHg [facility] O2 Sat, Riky 47.9 40.0 - 70.0 % [facility] HCO3, Riky 25 21 - 29 mmol/L [facility] Base Excess, Riky 0.4 -2.0 - 3.0 mmol/L [facility] Patient Temperature 37.0 C [facility] FIO2 30.0 % [facility] Specimen Blood Performing Organization Address City/[facility]/Zipcode Phone Number [facility] [address] [place] [address] [phone] CENTER Lactic acid, venous (05/07/2018 5:41 AM CDT) Lactate, Venous 0.6Comment: Specimen 0.5 - 2.2 mmol/L [facility] slightly hemolyzed [facility] Specimen Blood Performing Organization Address City/State/[facility] Centercode Phone Number [facility] [address] [place] [phone] [place] Vancomycin level, random (05/07/2018 5:41 AM CDT) Vancomycin Rm 21.7 ug/mL [facility] Specimen Blood Narrative Performed At Reference Range: No Normals [facility] Performing Organization Address City/[facility] Centercode Phone Number [address] [address] [phone] [place] RESPIRATORY PANEL [facility] (05/06/2018 11:45 PM CDT) Human Metapneumovirus Not detected Not detected, [facility] Rhinovirus Not detected Not detected, [facility] Influenza A Not detected Not detected, [facility] INFLUENZA A (NO SUBTYPE) Not detected, [facility] Influenza A subtype H1 Not detected, [facility] Influenza A Subtype H3 Not detected, [facility] Influenza A Subtype H1-2009 Not detected, [facility] Influenza B Not detected Not detected, [facility] Respiratory Syncytial Virus Not detected Not detected, [facility] Parainfluenza Virus 1 Not detected Not detected, [facility] Parainfluenza Virus 2 Not detected Not detected, [facility] Parainfluenza virus 3 Not detected Not detected, [facility] Parainfluenza Virus 4 Not detected Not detected, [facility] Adenovirus Not detected Not detected, [facility] Coronavirus 229E Not detected Not detected, [facility] Coronavirus HKU1 Not detected Not detected, [facility] Coronavirus NL63 Not detected Not detected, [facility] Coronavirus OC43 Not detected Not detected, [facility] Bordetella Pertussis Not detected Not detected, [facility] Chlamydophila Pneumoniae Not detected Not detected, [facility] Mycoplasma Pneumoniae Not detected Not detected, [facility] Specimen Nasopharyngeal Narrative Performed At Other viruses and bacteria not targeted by [facility] this PCR panel cannot be excluded; therefore clinical correlation and follow up of serology, culture results, and other molecular studies is required. The results are not intended to be used as the sole means for clinical diagnosis or patient management decisions. This sample was tested at the [facility] using the [employer] Respiratory Panel. It is FDA cleared and has been verified and approved by the [facility] for clinical use on nasal swab specimens. It is not FDA-cleared for use on bronchial wash/lavage samples. However, for this sample type, validation was performed and test characteristics were determined and approved, by [facility] for clinical use under the Clinical Laboratory Improvement Amendments (CLIA) of 1988 requirements. Therefore, FDA clearance is not required.This laboratory is CLIA-certified and [employer] (CAP)-accredited to perform high complexity testing. Performing Organization Address City/State/Zipcode Phone Number [place] [phone] [place] [address] [place] Blood Culture - Routine (Left Venipuncture) (05/06/2018 11:27 PM CDT) Result No growth in 5 days [facility] Specimen Blood Performing Organization Address City/[facility]/Zipcode Phone Number [place] [phone] [place] [address] [place] Sputum Culture + Gram Stain (05/06/2018 11:20 PM CDT) Result METHICILLIN RESISTANT [facility] STAPHYLOCOCCUS AUREUS (A) MEDICAL [place] Gram Stain Result <1+ White blood cells seen [facility] Gram Stain Result 0-5 epithelial cells [facility] Gram Stain Result 2+ gram positive cocci in [facility] chains and pairs [facility] Specimen Sputum Narrative Performed At 2+ Normal respiratory baldev present [facility] Organism Antibiotic Method Susceptibility Methicillin resistant Clindamycin >=4: Resistant Staphylococcus aureus Methicillin resistant Erythromycin >=8: Resistant Staphylococcus aureus Methicillin resistant Linezolid 2: Susceptible Staphylococcus aureus Methicillin resistant Oxacillin >=4: Resistant Staphylococcus aureus Methicillin resistant Rifampin <=0.5: Susceptible Staphylococcus aureus Methicillin resistant Tetracycline <=1: Susceptible Staphylococcus aureus Methicillin resistant Trimethoprim + <=10: Susceptible Staphylococcus aureus Sulfamethoxazole Methicillin resistant Vancomycin <=0.5: Susceptible Staphylococcus aureus Performing Organization Address City/State/Zipcode Phone Number [address] [address] [place] XR abdomen / KUB 1 view (05/06/2018 11:10 PM CDT) Specimen Narrative Performed At FINAL REPORT [facility] History: Intubation. FINDINGS: No comparisons. Single AP view of the chest shows a mildly enlarged heart. Mild to moderate atherosclerotic calcification aorta is present. Mediastinum is otherwise unremarkable. Multiple life-support tubes have been placed. An endotracheal tube has been placed, the distal tip of which is not well seen but appears to lie just above the level of the martinez. Repeat chest could be performed for further evaluation if clinically indicated. Lung volumes are low and there is mild increased opacity in the lung bases, likely atelectasis. Pulmonary vascularity is increased without overt edema. No pneumothorax. Bones are osteopenic but otherwise unremarkable. A right subclavian pacing device is present. Abdomen, single view: Single AP view of the abdomen demonstrates nasogastric tube tip coiled in the region of the gastric fundus. Moderate colonic gas, stool and minimal small bowel gas are present in a nonspecific pattern without evidence for obstruction. Extensive vascular stents are seen bilaterally in the iliac vessels. A right femoral central line is present. IMPRESSION: 1. Mild cardiomegaly and mild increased pulmonary vascularity without overt edema. Endotracheal tube tip appears to lie just above the level of the martinez but the tip is not well-seen. Repeat chest could be performed for further evaluation if indicated clinically. 2. Unremarkable abdominal series with a nonspecific bowel gas pattern. Signed: Winsome Weiss MD Report Verified Date/Time:05/06/2018 23:28:30 Reading Location: [facility] Diagnostic Imaging Reading Room - [place] [id number] Procedure Note Interface, External Ris In - 05/06/2018 11:30 PM CDT FINAL REPORT History: Intubation. FINDINGS: No comparisons. Single AP view of the chest shows a mildly enlarged heart. Mild to moderate atherosclerotic calcification aorta is present. Mediastinum is otherwise unremarkable. Multiple life-support tubes have been placed. An endotracheal tube has been placed, the distal tip of which is not well seen but appears to lie just above the level of the martinez. Repeat chest could be performed for further evaluation if clinically indicated. Lung volumes are low and there is mild increased opacity in the lung bases, likely atelectasis. Pulmonary vascularity is increased without overt edema. No pneumothorax. Bones are osteopenic but otherwise unremarkable. A right subclavian pacing device is present. Abdomen, single view: Single AP view of the abdomen demonstrates nasogastric tube tip coiled in the region of the gastric fundus. Moderate colonic gas, stool and minimal small bowel gas are present in a nonspecific pattern without evidence for obstruction. Extensive vascular stents are seen bilaterally in the iliac vessels. A right femoral central line is present. IMPRESSION: 1. Mild cardiomegaly and mild increased pulmonary vascularity without overt edema. Endotracheal tube tip appears to lie just above the level of the martinez but the tip is not well-seen. Repeat chest could be performed for further evaluation if indicated clinically. 2. Unremarkable abdominal series with a nonspecific bowel gas pattern. Signed: Winsome Weiss MD Report Verified Date/Time: 05/06/2018 23:28:30 Reading Location: [facility] Diagnostic Imaging Reading Room - [place] [id number] Performing Organization Address City/State/Zipcode Phone Number [facility] Urinalysis w/Microscopic + Reflex to Culture (05/06/2018 10:42 PM CDT) Color, UA Red [facility] Clarity, UA Cloudy [facility] Specific [place], UA 1.015 1.001 - 1.035 [facility] pH, UA 5.0 5.0 - 8.0 [facility] Protein, UA 70 mg/dL (A) Negative [facility] Glucose, UA Negative Negative [facility] Ketones, UA Negative Negative [facility] Bilirubin, UA Negative Negative [facility] Blood, UA Large (A) Negative [facility] Nitrite, UA Negative Negative [facility] Leukocytes, UA Moderate (A) Negative [facility] Urobilinogen, UA 0.2 0.2 - 1.0 mg/dL [facility] RBC, UA 4,889 /HPF [facility] WBC, UA 206 /HPF [facility] Bacteria, UA Moderate [facility] Squam Epithel, UA 11 /HPF [facility] Specimen Source [facility] Specimen Urine Performing Organization Address City/State/Zipcode Phone Number [facility] [address] [place] [address] [phone] CENTER Urine culture (05/06/2018 10:42 PM CDT) Result ENTEROBACTER CLOACAE COMPLEX (A) [facility] Specimen Urine Organism Antibiotic Method Susceptibility Enterobacter cloacae Amikacin <=2: Susceptible complex Enterobacter cloacae Aztreonam >=64: Resistant complex Enterobacter cloacae Cefepime 4: Susceptible complex Enterobacter cloacae Cefoxitin >=64: Resistant complex Enterobacter cloacae Ceftazidime >=64: Resistant complex Enterobacter cloacae Ceftriaxone >=64: Resistant complex Enterobacter cloacae Ertapenem <=0.5: Susceptible complex Enterobacter cloacae Gentamicin <=1: Susceptible complex Enterobacter cloacae Levofloxacin <=0.12: Susceptible complex Enterobacter cloacae Meropenem <=0.25: Susceptible complex Enterobacter cloacae Nitrofurantoin 32: Susceptible complex Enterobacter cloacae Piperacillin + Tazobactam >=128: Resistant complex Enterobacter cloacae Tetracycline 2: Susceptible complex Enterobacter cloacae Tobramycin <=1: Susceptible complex Enterobacter cloacae Trimethoprim + Sulfamethoxazole <=20: Susceptible complex Performing Organization Address [facility] Phone Number [address] [address] [place] Oxygen saturation, measured (05/06/2018 10:34 PM CDT) O2 Saturation (Measured) 70.8 % [facility] Specimen Blood Performing Organization Address [facility] Phone Number [address] [address] [place] Lactic Acid, Arterial (05/06/2018 10:34 PM CDT) Lactate, Art 0.8 0.5 - 2.2 mmol/L [facility] Specimen Blood, Arterial Performing Organization Address [facility] Phone Number [address] [address] CENTER Comprehensive metabolic panel (05/06/2018 10:34 PM CDT) Protein, Total 4.9 (L) 6.0 - 8.3 gm/dL [facility] Albumin 3.1 (L) 3.5 - 5.0 g/dL [facility] Alkaline Phosphatase 132 40 - 150 U/L [facility] Total Bilirubin 0.5 0.2 - 1.2 mg/dL [facility] Sodium 130 (L) 136 - 145 meq/L [facility] Potassium 4.4 3.5 - 5.1 meq/L [facility] Chloride 96 (L) 98 - 107 meq/L [facility] CO2 24 22 - 29 meq/L [facility] BUN 13 7 - 21 mg/dL [facility] Creatinine 4.33 (H) 0.57 - 1.25 mg/dL [facility] Glucose 85 70 - 105 mg/dL [facility] Calcium 8.8 8.4 - 10.2 mg/dL [facility] AST 27 5 - 34 U/L [facility] ALT 25 6 - 55 U/L [facility] EGFR 10Comment: ESTIMATED GFR mL/min/1.[address] [facility] IS NOT ACCURATE [facility] CREATININE CLEARANCE IN PREDICTING GLOMERULAR FILTRATION RATE. ESTIMATED GFR IS NOT APPLICABLE FOR DIALYSIS PATIENTS. Specimen Blood Performing Organization Address City/State/Zipcode Phone Number [facility] [address] [place] [address] [phone] CENTER after 06/23/2017 Insurance Payer Benefit Plan / Group Subscriber ID Type Phone Address MEDICARE MEDICARE A B xxxxxxxxxxx Medicare AETNA - MGD CARE [employer] INDEMNITY NON CONTR xxxxxxxxx Comm Advance Directives For more information, please contact:[address] [phone] Code Status Date Activated Date Inactivated Comments Partial Code 05/09/2018 12:56 PM 05/15/2018 4:33 PM This code status was determined by: Patient Drug Protocol After Arrest Occurs? No Mechanical Ventilation with Intubation? No Bag/Mask? No Internal/External Pacemaker? No Transfer to Critical Care? Yes Chest Compressions? No Defibrillation/Cardioversion? No Full Code 05/06/2018 10:46 PM 05/09/2018 12:56 PM This code status was determined by: Patient
--- OUTSIDE RECORDS SUMMARY | 2018-06-24 04:04 | XMS REPORT ---
:1930 [facility] Address [address] [place] [address] Care Team Providers Name Role Phone MARY KATEANTELMO JACOB Unavailable Unavailable Payers Payer Name Policy Type [...] 2-16 00:00: 00 [place] [address] Contrast- Oral 6-28 and IV Dye 00:00: 00 Penicillins DA Active MO 2018-0 6-28 00:00: 00 acetylcysteine DA Active MO 2018-0 6-28 00:00: 00 ciprofloxacin DA Active MO 2018-0 6-28 00:00: 00 Medications This patient has no known medications. Results Test Description Test Time Test Comments Text Results Atomic Results Result Comments BASIC METABOLIC PANEL 2018-05-15 07:18:00 Test Item Value Reference Range Comments SODIUM (BEAKER) (test 138 meq/L 136-145 yeyf=322) POTASSIUM (BEAKER) (test 3.7 meq/L 3.5-5.1 dylh=883) CHLORIDE (BEAKER) (test 103 meq/L 98-107 yyao=011) CO2 (BEAKER) (test shul=114) 26 meq/L 22-29 BLOOD UREA NITROGEN (BEAKER) 12 mg/dL 7-21 (test yown=653) CREATININE (BEAKER) (test 2.45 mg/dL 0.57-1.25 sjxn=080) GLUCOSE RANDOM (BEAKER) 82 mg/dL 70-105 (test tmmp=234) CALCIUM (BEAKER) (test 8.3 mg/dL 8.4-10.2 efyx=199) EGFR (BEAKER) (test 19 mL/min/1.73 sq m ESTIMATED GFR IS NOT oftw=1534) ACCURATE CREATININE CLEARANCE IN PREDICTING GLOMERULAR FILTRATION RATE. ESTIMATED GFR IS NOT APPLICABLE FOR DIALYSIS PATIENTS. [id number] 07:16:00 Test Item Value Reference Range Comments PHOSPHORUS (BEAKER) (test bhxe=769) 3.2 mg/dL 2.3-4.7 [id number] 07:16:00 Test Item Value Reference Range Comments MAGNESIUM (BEAKER) (test zfmb=329) 1.8 mg/dL 1.6-2.6 CBC W/PLT COUNT & AUTO [id number] 06:23:00 Test Item Value Reference Range Comments WHITE BLOOD CELL COUNT (BEAKER) (test iusl=942) 6.6 K/ L 3.5-10.5 RED BLOOD CELL COUNT (BEAKER) (test jvrq=144) 3.38 M/ L 3.93-5.22 HEMOGLOBIN (BEAKER) (test ucsk=277) 10.0 GM/DL 11.2-15.7 HEMATOCRIT (BEAKER) (test nlve=326) 34.6 % 34.1-44.9 MEAN CORPUSCULAR VOLUME (BEAKER) (test vtcl=062) 102.4 fL 79.4-94.8 MEAN CORPUSCULAR HEMOGLOBIN (BEAKER) (test 29.6 pg 25.6-32.2 niql=614) MEAN CORPUSCULAR HEMOGLOBIN CONC (BEAKER) (test 28.9 GM/DL 32.2-35.5 yrol=588) RED CELL DISTRIBUTION WIDTH (BEAKER) (test 19.6 % 11.7-14.4 taxi=845) PLATELET COUNT (BEAKER) (test zdun=932) 129 K/CU MM 150-450 MEAN PLATELET VOLUME (BEAKER) (test sooh=092) 11.0 fL 9.4-12.3 NUCLEATED RED BLOOD CELLS (BEAKER) (test 0 /100 WBC 0-0 aztx=447) NEUTROPHILS RELATIVE PERCENT (BEAKER) (test 76 % nhdb=896) LYMPHOCYTES RELATIVE PERCENT (BEAKER) (test 10 % daai=921) MONOCYTES RELATIVE PERCENT (BEAKER) (test 8 % nedp=106) EOSINOPHILS RELATIVE PERCENT (BEAKER) (test 6 % szks=400) BASOPHILS RELATIVE PERCENT (BEAKER) (test 1 % rpaa=113) NEUTROPHILS ABSOLUTE COUNT (BEAKER) (test 5.04 K/ L 1.56-6.13 qwbx=877) LYMPHOCYTES ABSOLUTE COUNT (BEAKER) (test 0.64 K/ L 1.18-3.74 adtd=698) MONOCYTES ABSOLUTE COUNT (BEAKER) (test 0.50 K/ L 0.24-0.36 mtxk=072) EOSINOPHILS ABSOLUTE COUNT (BEAKER) (test 0.36 K/ L 0.04-0.36 hkrc=228) BASOPHILS ABSOLUTE COUNT (BEAKER) (test 0.03 K/ L 0.01-0.08 zoab=688) IMMATURE GRANULOCYTES-RELATIVE PERCENT (BEAKER) 0 % 0-1 (test lwnw=4133) BASIC METABOLIC [id number] 08:14:00 Test Item Value Reference Range Comments SODIUM (BEAKER) (test 136 meq/L 136-145 dbvy=486) POTASSIUM (BEAKER) (test 3.8 meq/L 3.5-5.1 jtna=929) CHLORIDE (BEAKER) (test 102 meq/L 98-107 rcbg=407) CO2 (BEAKER) (test 25 meq/L 22-29 yegh=730) BLOOD UREA NITROGEN 33 mg/dL 7-21 (BEAKER) (test irds=722) CREATININE (BEAKER) (test 3.86 mg/dL 0.57-1.25 qqep=241) GLUCOSE RANDOM (BEAKER) 76 mg/dL 70-105 (test tgkg=142) CALCIUM (BEAKER) (test 8.3 mg/dL 8.4-10.2 niio=417) EGFR (BEAKER) (test 11 mL/min/1.73 sq m ESTIMATED GFR IS NOT xria=7564) ACCURATE CREATININE CLEARANCE IN PREDICTING GLOMERULAR FILTRATION RATE. ESTIMATED GFR IS NOT APPLICABLE FOR DIALYSIS PATIENTS. [id number] 08:01:00 Test Item Value Reference Range Comments PHOSPHORUS (BEAKER) (test meuo=565) 4.4 mg/dL 2.3-4.7 [id number] 08:01:00 Test Item Value Reference Range Comments MAGNESIUM (BEAKER) (test rvzp=366) 1.9 mg/dL 1.6-2.6 CBC W/PLT COUNT & AUTO [id number] 06:38:00 Test Item Value Reference Range Comments WHITE BLOOD CELL COUNT (BEAKER) (test fjme=510) 5.8 K/ L 3.5-10.5 RED BLOOD CELL COUNT (BEAKER) (test bxvi=979) 3.11 M/ L 3.93-5.22 HEMOGLOBIN (BEAKER) (test kygq=611) 9.3 GM/DL 11.2-15.7 HEMATOCRIT (BEAKER) (test vhvf=212) 31.9 % 34.1-44.9 MEAN CORPUSCULAR VOLUME (BEAKER) (test mplw=693) 102.6 fL 79.4-94.8 MEAN CORPUSCULAR HEMOGLOBIN (BEAKER) (test 29.9 pg 25.6-32.2 qmgg=300) MEAN CORPUSCULAR HEMOGLOBIN CONC (BEAKER) (test 29.2 GM/DL 32.2-35.5 pyjh=140) RED CELL DISTRIBUTION WIDTH (BEAKER) (test 19.9 % 11.7-14.4 bpgb=099) PLATELET COUNT (BEAKER) (test oyxy=627) 138 K/CU MM 150-450 MEAN PLATELET VOLUME (BEAKER) (test aprq=742) 11.2 fL 9.4-12.3 NUCLEATED RED BLOOD CELLS (BEAKER) (test 0 /100 WBC 0-0 sohe=183) NEUTROPHILS RELATIVE PERCENT (BEAKER) (test 76 % gics=111) LYMPHOCYTES RELATIVE PERCENT (BEAKER) (test 13 % wlfu=779) MONOCYTES RELATIVE PERCENT (BEAKER) (test 6 % gftx=742) EOSINOPHILS RELATIVE PERCENT (BEAKER) (test 5 % laei=916) BASOPHILS RELATIVE PERCENT (BEAKER) (test 0 % lazo=838) NEUTROPHILS ABSOLUTE COUNT (BEAKER) (test 4.39 K/ L 1.56-6.13 ksrw=923) LYMPHOCYTES ABSOLUTE COUNT (BEAKER) (test 0.75 K/ L 1.18-3.74 pdnl=770) MONOCYTES ABSOLUTE COUNT (BEAKER) (test 0.35 K/ L 0.24-0.36 pdcb=834) EOSINOPHILS ABSOLUTE COUNT (BEAKER) (test 0.27 K/ L 0.04-0.36 pswe=404) BASOPHILS ABSOLUTE COUNT (BEAKER) (test 0.01 K/ L 0.01-0.08 whly=777) IMMATURE GRANULOCYTES-RELATIVE PERCENT (BEAKER) 1 % 0-1 (test tslo=4457) OCCULT BLOOD, [id number] 17:25:00 Test Item Value Reference Range Comments FECAL OCCULT BLOOD (BEAKER) (test lnst=395) Positive Negative [id number] 05:54:00 Test Item Value Reference Range Comments PHOSPHORUS (BEAKER) (test agzx=793) 3.9 mg/dL 2.3-4.7 [id number] 05:54:00 Test Item Value Reference Range Comments MAGNESIUM (BEAKER) (test ueqm=582) 2.0 mg/dL 1.6-2.6 BASIC METABOLIC [id number] 05:54:00 Test Item Value Reference Range Comments SODIUM (BEAKER) (test 139 meq/L 136-145 hgam=945) POTASSIUM (BEAKER) (test 3.9 meq/L 3.5-5.1 naaz=178) CHLORIDE (BEAKER) (test 103 meq/L 98-107 fscd=520) CO2 (BEAKER) (test 29 meq/L 22-29 hhue=436) BLOOD UREA NITROGEN 23 mg/dL 7-21 (BEAKER) (test ibth=469) CREATININE (BEAKER) (test 2.76 mg/dL 0.57-1.25 yfzy=886) GLUCOSE RANDOM (BEAKER) 105 mg/dL 70-105 (test pkay=026) CALCIUM (BEAKER) (test 8.2 mg/dL 8.4-10.2 ranj=853) EGFR (BEAKER) (test 16 mL/min/1.73 sq m ESTIMATED GFR IS NOT uoex=3812) ACCURATE CREATININE CLEARANCE IN PREDICTING GLOMERULAR FILTRATION RATE. ESTIMATED GFR IS NOT APPLICABLE FOR DIALYSIS PATIENTS. CBC W/PLT COUNT & AUTO [id number] 05:38:00 Test Item Value Reference Range Comments WHITE BLOOD CELL COUNT (BEAKER) (test ugkp=453) 7.5 K/ L 3.5-10.5 RED BLOOD CELL COUNT (BEAKER) (test lkeq=836) 3.08 M/ L 3.93-5.22 HEMOGLOBIN (BEAKER) (test rofw=533) 9.0 GM/DL 11.2-15.7 HEMATOCRIT (BEAKER) (test xxnz=478) 31.7 % 34.1-44.9 MEAN CORPUSCULAR VOLUME (BEAKER) (test kzgy=486) 102.9 fL 79.4-94.8 MEAN CORPUSCULAR HEMOGLOBIN (BEAKER) (test 29.2 pg 25.6-32.2 hhnr=982) MEAN CORPUSCULAR HEMOGLOBIN CONC (BEAKER) (test 28.4 GM/DL 32.2-35.5 gkjg=978) RED CELL DISTRIBUTION WIDTH (BEAKER) (test 20.3 % 11.7-14.4 nkvg=604) PLATELET COUNT (BEAKER) (test pjup=379) 152 K/CU MM 150-450 MEAN PLATELET VOLUME (BEAKER) (test fubl=495) 11.0 fL 9.4-12.3 NUCLEATED RED BLOOD CELLS (BEAKER) (test 0 /100 WBC 0-0 zqhe=894) NEUTROPHILS RELATIVE PERCENT (BEAKER) (test 77 % etqv=398) LYMPHOCYTES RELATIVE PERCENT (BEAKER) (test 12 % eaku=120) MONOCYTES RELATIVE PERCENT (BEAKER) (test 8 % cfad=791) EOSINOPHILS RELATIVE PERCENT (BEAKER) (test 2 % hnco=432) BASOPHILS RELATIVE PERCENT (BEAKER) (test 0 % ponm=048) NEUTROPHILS ABSOLUTE COUNT (BEAKER) (test 5.80 K/ L 1.56-6.13 vjqf=766) LYMPHOCYTES ABSOLUTE COUNT (BEAKER) (test 0.87 K/ L 1.18-3.74 gvft=346) MONOCYTES ABSOLUTE COUNT (BEAKER) (test 0.61 K/ L 0.24-0.36 mvmi=014) EOSINOPHILS ABSOLUTE COUNT (BEAKER) (test 0.18 K/ L 0.04-0.36 oyen=428) BASOPHILS ABSOLUTE COUNT (BEAKER) (test 0.02 K/ L 0.01-0.08 nssc=894) IMMATURE GRANULOCYTES-RELATIVE PERCENT (BEAKER) 1 % 0-1 (test jbjl=2118) POCT-GLUCOSE [id number] 22:40:00 Test Item Value Reference Range Comments POC-GLUCOSE METER (BEAKER) 109 mg/dL 70-110 TESTED AT [address] (test tpvs=9562) [facility] [address] POCT-GLUCOSE [id number] 18:24:00 Test Item Value Reference Range Comments POC-GLUCOSE METER (BEAKER) 111 mg/dL 70-110 TESTED AT [address] (test nusm=6483) [facility] [address] POCT-GLUCOSE [id number] 13:41:00 Test Item Value Reference Range Comments POC-GLUCOSE METER (BEAKER) 100 mg/dL 70-110 TESTED AT [address] (test skfg=5788) [facility] [address] POCT-GLUCOSE [id number] 06:37:00 Test Item Value Reference Range Comments POC-GLUCOSE METER (BEAKER) 94 mg/dL 70-110 TESTED AT [address] (test hanj=0022) [place] [id number] 06:26:00 Test Item Value Reference Range Comments PHOSPHORUS (BEAKER) (test ceif=942) 5.9 mg/dL 2.3-4.7 [id number] 06:26:00 Test Item Value Reference Range Comments MAGNESIUM (BEAKER) (test onrg=430) 2.0 mg/dL 1.6-2.6 BASIC METABOLIC [id number] 06:26:00 Test Item Value Reference Range Comments SODIUM (BEAKER) (test 138 meq/L 136-145 jbuq=411) POTASSIUM (BEAKER) (test 4.8 meq/L 3.5-5.1 nuph=360) CHLORIDE (BEAKER) (test 104 meq/L 98-107 greo=470) CO2 (BEAKER) (test 21 meq/L 22-29 fbxb=810) BLOOD UREA NITROGEN 40 mg/dL 7-21 (BEAKER) (test qewh=369) CREATININE (BEAKER) (test 3.48 mg/dL 0.57-1.25 jwss=304) GLUCOSE RANDOM (BEAKER) 82 mg/dL 70-105 (test byqr=316) CALCIUM (BEAKER) (test 7.7 mg/dL 8.4-10.2 wilq=578) EGFR (BEAKER) (test 12 mL/min/1.73 sq m ESTIMATED GFR IS NOT fgtt=2013) ACCURATE CREATININE CLEARANCE IN PREDICTING GLOMERULAR FILTRATION RATE. ESTIMATED GFR IS NOT APPLICABLE FOR DIALYSIS PATIENTS. CBC W/PLT COUNT & AUTO [id number] 06:05:00 Test Item Value Reference Range Comments WHITE BLOOD CELL COUNT (BEAKER) (test lxfw=566) 6.6 K/ L 3.5-10.5 RED BLOOD CELL COUNT (BEAKER) (test umks=623) 3.13 M/ L 3.93-5.22 HEMOGLOBIN (BEAKER) (test vidn=655) 9.1 GM/DL 11.2-15.7 HEMATOCRIT (BEAKER) (test twtq=625) 32.5 % 34.1-44.9 MEAN CORPUSCULAR VOLUME (BEAKER) (test hscz=194) 103.8 fL 79.4-94.8 MEAN CORPUSCULAR HEMOGLOBIN (BEAKER) (test 29.1 pg 25.6-32.2 nhup=440) MEAN CORPUSCULAR HEMOGLOBIN CONC (BEAKER) (test 28.0 GM/DL 32.2-35.5 aqvr=969) RED CELL DISTRIBUTION WIDTH (BEAKER) (test 20.5 % 11.7-14.4 fdsz=739) PLATELET COUNT (BEAKER) (test rngs=747) 74 K/CU MM 150-450 MEAN PLATELET VOLUME (BEAKER) (test bzbi=633) 12.0 fL 9.4-12.3 NUCLEATED RED BLOOD CELLS (BEAKER) (test 0 /100 WBC 0-0 sjam=807) NEUTROPHILS RELATIVE PERCENT (BEAKER) (test 76 % rcjo=296) LYMPHOCYTES RELATIVE PERCENT (BEAKER) (test 14 % bevm=218) MONOCYTES RELATIVE PERCENT (BEAKER) (test 9 % tquk=680) EOSINOPHILS RELATIVE PERCENT (BEAKER) (test 0 % irmw=101) BASOPHILS RELATIVE PERCENT (BEAKER) (test 0 % nhcd=404) NEUTROPHILS ABSOLUTE COUNT (BEAKER) (test 5.01 K/ L 1.56-6.13 vgwq=122) LYMPHOCYTES ABSOLUTE COUNT (BEAKER) (test 0.92 K/ L 1.18-3.74 olpf=800) MONOCYTES ABSOLUTE COUNT (BEAKER) (test riht=990) 0.58 K/ L 0.24-0.36 EOSINOPHILS ABSOLUTE COUNT (BEAKER) (test 0.01 K/ L 0.04-0.36 qoju=974) BASOPHILS ABSOLUTE COUNT (BEAKER) (test geoy=674) 0.01 K/ L 0.01-0.08 IMMATURE GRANULOCYTES-RELATIVE PERCENT (BEAKER) 1 % 0-1 (test faqs=4124) BLOOD [id number] 02:01:00 Test Item Value Reference Range Comments CULTURE (BEAKER) (test xzes=0999) No growth in 5 days POCT-GLUCOSE [id number] 00:11:00 Test Item Value Reference Range Comments POC-GLUCOSE METER (BEAKER) 158 mg/dL 70-110 TESTED AT [address] (test maic=3554) [place] [address] RAD, CHEST, 1 VIEW, NON [id number] 13:55:00Reason for exam:->short of breathShould this be performed at the bedside?->YesFINAL REPORT AP chest HISTORY: Shortness of breath. COMPARISON: 05/09/2017. IMPRESSION: Endotracheal tube removed. Dialysis catheter and AICD present. Cardiomegaly. Thoracic aortic ectasia. Clear lungs. Signed: Chance Hernandez MDReport Verified Date/Time: 05/11/2018 13:55:01 Reading Location: [address] Transitional Reading Room POCT-GLUCOSE [id number] 13:02:00 Test Item Value Reference Range Comments POC-GLUCOSE METER (BEAKER) 135 mg/dL 70-110 TESTED AT [address] (test zkdf=6645) [place] [address] B-TYPE NATRIURETIC FACTOR (BNP)2018-05-11 12:34:00 Test Item Value Reference Range Comments B-TYPE NATRIURETIC PEPTIDE (BEAKER) (test 314[address] pg/mL 0-100 erww=332) POCT-GLUCOSE [id number] 08:16:00 Test Item Value Reference Range Comments POC-GLUCOSE METER (BEAKER) 107 mg/dL 70-110 TESTED AT [address] (test vfvj=1505) [place] [address] BASIC METABOLIC [id number] 04:08:00 Test Item Value Reference Range Comments SODIUM (BEAKER) (test 139 meq/L 136-145 vabn=695) POTASSIUM (BEAKER) (test 4.5 meq/L 3.5-5.1 twak=002) CHLORIDE (BEAKER) (test 103 meq/L 98-107 fywc=965) CO2 (BEAKER) (test 26 meq/L 22-29 madg=916) BLOOD UREA NITROGEN 23 mg/dL 7-21 (BEAKER) (test bkxs=581) CREATININE (BEAKER) (test 2.34 mg/dL 0.57-1.25 xast=180) GLUCOSE RANDOM (BEAKER) 93 mg/dL 70-105 (test iqwb=220) CALCIUM (BEAKER) (test 8.2 mg/dL 8.4-10.2 ahjo=368) EGFR (BEAKER) (test 20 mL/min/1.73 sq m ESTIMATED GFR IS NOT kjug=3102) ACCURATE CREATININE CLEARANCE IN PREDICTING GLOMERULAR FILTRATION RATE. ESTIMATED GFR IS NOT APPLICABLE FOR DIALYSIS PATIENTS. CBC W/PLT COUNT & AUTO [id number] 03:56:00 Test Item Value Reference Range Comments WHITE BLOOD CELL COUNT (BEAKER) (test uiyy=430) 7.7 K/ L 3.5-10.5 RED BLOOD CELL COUNT (BEAKER) (test ntyx=752) 2.86 M/ L 3.93-5.22 HEMOGLOBIN (BEAKER) (test yjcm=022) 8.3 GM/DL 11.2-15.7 HEMATOCRIT (BEAKER) (test ujtn=708) 28.9 % 34.1-44.9 MEAN CORPUSCULAR VOLUME (BEAKER) (test mzwy=419) 101.0 fL 79.4-94.8 MEAN CORPUSCULAR HEMOGLOBIN (BEAKER) (test 29.0 pg 25.6-32.2 gdfw=102) MEAN CORPUSCULAR HEMOGLOBIN CONC (BEAKER) (test 28.7 GM/DL 32.2-35.5 obqg=298) RED CELL DISTRIBUTION WIDTH (BEAKER) (test 21.3 % 11.7-14.4 eiou=298) PLATELET COUNT (BEAKER) (test xerc=499) 145 K/CU MM 150-450 MEAN PLATELET VOLUME (BEAKER) (test scao=850) 11.0 fL 9.4-12.3 NUCLEATED RED BLOOD CELLS (BEAKER) (test 0 /100 WBC 0-0 dalh=539) NEUTROPHILS RELATIVE PERCENT (BEAKER) (test 79 % pwrd=442) LYMPHOCYTES RELATIVE PERCENT (BEAKER) (test 11 % nmpk=347) MONOCYTES RELATIVE PERCENT (BEAKER) (test 9 % clex=487) EOSINOPHILS RELATIVE PERCENT (BEAKER) (test 0 % vkug=767) BASOPHILS RELATIVE PERCENT (BEAKER) (test 0 % oprc=329) NEUTROPHILS ABSOLUTE COUNT (BEAKER) (test 6.07 K/ L 1.56-6.13 bryy=071) LYMPHOCYTES ABSOLUTE COUNT (BEAKER) (test 0.87 K/ L 1.18-3.74 bpky=969) MONOCYTES ABSOLUTE COUNT (BEAKER) (test 0.66 K/ L 0.24-0.36 gvro=018) EOSINOPHILS ABSOLUTE COUNT (BEAKER) (test 0.02 K/ L 0.04-0.36 kwkq=454) BASOPHILS ABSOLUTE COUNT (BEAKER) (test 0.01 K/ L 0.01-0.08 jrum=796) IMMATURE GRANULOCYTES-RELATIVE PERCENT (BEAKER) 1 % 0-1 (test qnkx=5591) [id number] 03:55:00 Test Item Value Reference Range Comments PHOSPHORUS (BEAKER) (test ilvk=916) 5.1 mg/dL 2.3-4.7 [id number] 03:55:00 Test Item Value Reference Range Comments MAGNESIUM (BEAKER) (test onhf=957) 1.9 mg/dL 1.6-2.6 POCT-GLUCOSE [id number] 00:23:00 Test Item Value Reference Range Comments POC-GLUCOSE METER (BEAKER) 120 mg/dL 70-[address] [facility] [address] [facility] (test mtjy=7347) [facility] [address] SPUTUM CULTURE + GRAM [id number] 20:21:00 Test Item Value Reference Range Comments CULTURE (BEAKER) (test METHICILLIN RESISTANT <1+ Methicillin bxmg=4174) STAPHYLOCOCCUS AUREUS resistant Staphylococcus aureus Clindamycin (test code=10) Erythromycin (test code=4) Linezolid (test code=40) Nitrofurantoin (test code=23) Oxacillin (test code=14) Rifampin (test code=43) Tetracycline (test code=2) Trimethoprim + Sulfamethoxazole (test code=47) Vancomycin (test code=13) GRAM STAIN RESULT <1+ White blood cells (BEAKER) (test cpsg=7908) seen GRAM STAIN RESULT 0-5 epithelial cells (BEAKER) (test jheh=740637) GRAM STAIN RESULT 2+ gram positive cocci (BEAKER) (test in chains and pairs agbj=658957) 2+ Normal respiratory baldev presentPOCT-GLUCOSE [id number] 17:39:00 Test Item Value Reference Range Comments POC-GLUCOSE METER (BEAKER) 186 mg/dL 70-110 TESTED AT [address] (test unsq=6411) [place] [address] POCT-GLUCOSE [id number] 12:43:00 Test Item Value Reference Range Comments POC-GLUCOSE METER (BEAKER) 189 mg/dL 70-110 TESTED AT [address] (test cifh=9274) [place] [address] [id number] 11:27:00 Test Item Value Reference Range Comments PROTIME (BEAKER) (test wjoh=190) 15.0 seconds 11.7-14.7 INR (BEAKER) (test zhwd=785) 1.1 <=5.9 PARTIAL THROMBOPLASTIN TIME (BEAKER) (test 41.5 seconds 22.5-36.0 uxht=930) RECOMMENDED COUMADIN/WARFARIN INR THERAPY RANGESSTANDARD DOSE: 2.0 - 3.0 Includes: PROPHYLAXIS forvenous thrombosis, systemic embolization; TREATMENT for venous thrombosis and/or pulmonary embolus.HIGH RISK: Target INR is 2.5-3.5 for patients with mechanical heart valves.POCT-GLUCOSE [id number] 06:52:00 Test Item Value Reference Range Comments POC-GLUCOSE METER (BEAKER) 204 mg/dL 70-110 TESTED AT [address] (test zrrf=6093) [place] [id number] BASIC METABOLIC [id number] 06:44:00 Test Item Value Reference Range Comments SODIUM (BEAKER) (test 138 meq/L 136-145 sfxc=249) POTASSIUM (BEAKER) (test 5.2 meq/L 3.5-5.1 osjr=876) CHLORIDE (BEAKER) (test 102 meq/L 98-107 wqen=558) CO2 (BEAKER) (test 25 meq/L 22-29 cqze=342) BLOOD UREA NITROGEN 36 mg/dL 7-21 (BEAKER) (test iksq=705) CREATININE (BEAKER) (test 2.77 mg/dL 0.57-1.25 sndd=874) GLUCOSE RANDOM (BEAKER) 142 mg/dL 70-105 (test xphy=103) CALCIUM (BEAKER) (test 8.0 mg/dL 8.4-10.2 poyx=579) EGFR (BEAKER) (test 16 mL/min/1.73 sq m ESTIMATED GFR IS NOT nlsx=0042) ACCURATE CREATININE CLEARANCE IN PREDICTING GLOMERULAR FILTRATION RATE. ESTIMATED GFR IS NOT APPLICABLE FOR DIALYSIS PATIENTS. [id number] 06:14:00 Test Item Value Reference Range Comments PHOSPHORUS (BEAKER) (test exyd=980) 6.1 mg/dL 2.3-4.7 [id number] 06:14:00 Test Item Value Reference Range Comments MAGNESIUM (BEAKER) (test szly=896) 2.1 mg/dL 1.6-2.6 CBC W/PLT COUNT & AUTO [id number] 06:10:00 Test Item Value Reference Range Comments WHITE BLOOD CELL COUNT (BEAKER) (test pekf=126) 7.2 K/ L 3.5-10.5 RED BLOOD CELL COUNT (BEAKER) (test dzsk=357) 2.97 M/ L 3.93-5.22 HEMOGLOBIN (BEAKER) (test cxfj=154) 8.9 GM/DL 11.2-15.7 HEMATOCRIT (BEAKER) (test shxt=677) 30.3 % 34.1-44.9 MEAN CORPUSCULAR VOLUME (BEAKER) (test pkvb=873) 102.0 fL 79.4-94.8 MEAN CORPUSCULAR HEMOGLOBIN (BEAKER) (test 30.0 pg 25.6-32.2 kgmm=531) MEAN CORPUSCULAR HEMOGLOBIN CONC (BEAKER) (test 29.4 GM/DL 32.2-35.5 zybc=153) RED CELL DISTRIBUTION WIDTH (BEAKER) (test 21.9 % 11.7-14.4 frmr=678) PLATELET COUNT (BEAKER) (test tvuz=895) 160 K/CU MM 150-450 MEAN PLATELET VOLUME (BEAKER) (test xaqz=781) 11.0 fL 9.4-12.3 NUCLEATED RED BLOOD CELLS (BEAKER) (test 0 /100 WBC 0-0 cyjy=295) NEUTROPHILS RELATIVE PERCENT (BEAKER) (test 79 % dlxd=620) LYMPHOCYTES RELATIVE PERCENT (BEAKER) (test 11 % dyci=617) MONOCYTES RELATIVE PERCENT (BEAKER) (test 9 % yhjh=934) EOSINOPHILS RELATIVE PERCENT (BEAKER) (test 0 % mzwt=765) BASOPHILS RELATIVE PERCENT (BEAKER) (test 0 % wymd=665) NEUTROPHILS ABSOLUTE COUNT (BEAKER) (test 5.74 K/ L 1.56-6.13 gbey=685) LYMPHOCYTES ABSOLUTE COUNT (BEAKER) (test 0.78 K/ L 1.18-3.74 quuj=614) MONOCYTES ABSOLUTE COUNT (BEAKER) (test 0.65 K/ L 0.24-0.36 thlu=348) EOSINOPHILS ABSOLUTE COUNT (BEAKER) (test 0.00 K/ L 0.04-0.36 mslo=109) BASOPHILS ABSOLUTE COUNT (BEAKER) (test 0.01 K/ L 0.01-0.08 gnrz=621) IMMATURE GRANULOCYTES-RELATIVE PERCENT (BEAKER) 1 % 0-1 (test vcih=4746) [id number] 05:48:00 Test Item Value Reference Range Comments PARTIAL THROMBOPLASTIN TIME (BEAKER) (test 28.8 seconds 22.5-36.0 fyxd=012) POCT-GLUCOSE [id number] 00:19:00 Test Item Value Reference Range Comments POC-GLUCOSE METER (BEAKER) 216 mg/dL 70-110 TESTED AT [address] (test yfwn=0308) [facility] [id number] POCT-GLUCOSE [id number] 17:43:00 Test Item Value Reference Range Comments POC-GLUCOSE METER (BEAKER) 266 mg/dL 70-110 TESTED AT [address] (test dimp=2208) [facility] [address] [id number] 15:42:00 Test Item Value Reference Range Comments PROTIME (BEAKER) (test gtjy=105) 15.5 seconds 11.7-14.7 INR (BEAKER) (test wzzx=507) 1.2 <=5.9 PARTIAL THROMBOPLASTIN TIME (BEAKER) (test 83.0 seconds 22.5-36.0 nwgp=298) RECOMMENDED COUMADIN/WARFARIN INR THERAPY RANGESSTANDARD DOSE: 2.0 - 3.0 Includes: PROPHYLAXIS forvenous thrombosis, systemic embolization; TREATMENT for venous thrombosis and/or pulmonary embolus.HIGH RISK: Target INR is 2.5-3.5 for patients with mechanical heart valves.POCT-GLUCOSE [id number] 12:48:00 Test Item Value Reference Range Comments POC-GLUCOSE METER (BEAKER) 211 mg/dL 70-110 TESTED AT [address] (test rsco=9045) [place] [address] RAD, CHEST, 1 VIEW, NON [id number] 07:51:00Reason for exam:->Retracted ETT back. Now 19 @ [facility] this be performed at the bedside?->YesFINAL REPORT Chest, one view HISTORY: Respiratory failure, retraction of endotracheal tube Comparison: Earlier study performed on same date Findings: Interval retraction of endotracheal tube, which now terminates approximately 2.8 cm above the martinez. Otherwise, there has been no significant interval change. IMPRESSION: Interval retraction of endotracheal tube, which now terminates approximately 2.8 cm above the martinez. Otherwise, there has been no significant interval change.Signed: Forest Montague Verified Date/ Time: 05/09/2018 07:51:23 Reading Location: [facility] Diagnostic Imaging Reading Room - [place] [id number] Electronically signed by: FOREST MONTAGUE MD on 2018 07:51 AMPOCT-GLUCOSE [id number] 06:34:00 Test Item Value Reference Range Comments POC-GLUCOSE METER (BEAKER) 206 mg/dL 70-110 TESTED AT [address] (test cytm=2009) [place] [id number] HEPARIN ASSAY - [id number] 06:24:00 Test Item Value Reference Range Comments UNFRACTIONATED HEPARIN-ANTI 10A (BEAKER) (test 0.16 u/ml 0.30-0.70 buns=0698) Recommendations for Monitoring Unfractionated Heparin Therapeutic Range: 0.3- 0.7 u/mL with continuous IV infusionCBC W/PLT COUNT & AUTO [id number] 05:49:00 Test Item Value Reference Range Comments WHITE BLOOD CELL COUNT (BEAKER) (test nvbm=329) 6.3 K/ L 3.5-10.5 RED BLOOD CELL COUNT (BEAKER) (test vgpy=573) 2.92 M/ L 3.93-5.22 HEMOGLOBIN (BEAKER) (test xlvp=370) 8.5 GM/DL 11.2-15.7 HEMATOCRIT (BEAKER) (test fkzt=517) 28.8 % 34.1-44.9 MEAN CORPUSCULAR VOLUME (BEAKER) (test zyim=131) 98.6 fL 79.4-94.8 MEAN CORPUSCULAR HEMOGLOBIN (BEAKER) (test 29.1 pg 25.6-32.2 rcey=128) MEAN CORPUSCULAR HEMOGLOBIN CONC (BEAKER) (test 29.5 GM/DL 32.2-35.5 qlpu=544) RED CELL DISTRIBUTION WIDTH (BEAKER) (test 21.8 % 11.7-14.4 zvna=782) PLATELET COUNT (BEAKER) (test ejgs=419) 147 K/CU MM 150-450 MEAN PLATELET VOLUME (BEAKER) (test lbnk=099) 10.4 fL 9.4-12.3 NUCLEATED RED BLOOD CELLS (BEAKER) (test 0 /100 WBC 0-0 jnzg=453) NEUTROPHILS RELATIVE PERCENT (BEAKER) (test 77 % jxsu=101) LYMPHOCYTES RELATIVE PERCENT (BEAKER) (test 9 % wqui=262) MONOCYTES RELATIVE PERCENT (BEAKER) (test 13 % pnqc=460) EOSINOPHILS RELATIVE PERCENT (BEAKER) (test 0 % fkcr=939) BASOPHILS RELATIVE PERCENT (BEAKER) (test 0 % cbgy=977) NEUTROPHILS ABSOLUTE COUNT (BEAKER) (test 4.91 K/ L 1.56-6.13 hoxa=919) LYMPHOCYTES ABSOLUTE COUNT (BEAKER) (test 0.59 K/ L 1.18-3.74 ldbm=839) MONOCYTES ABSOLUTE COUNT (BEAKER) (test 0.79 K/ L 0.24-0.36 prjs=408) EOSINOPHILS ABSOLUTE COUNT (BEAKER) (test 0.01 K/ L 0.04-0.36 mntd=208) BASOPHILS ABSOLUTE COUNT (BEAKER) (test 0.01 K/ L 0.01-0.08 tvjv=181) IMMATURE GRANULOCYTES-RELATIVE PERCENT (BEAKER) 1 % 0-1 (test hqyq=4015) [id number] 05:33:00 Test Item Value Reference Range Comments PROTIME (BEAKER) (test pwdu=356) 15.3 seconds 11.7-14.7 INR (BEAKER) (test khbd=866) 1.2 <=5.9 PARTIAL THROMBOPLASTIN TIME (BEAKER) (test 76.7 seconds 22.5-36.0 tmap=855) RECOMMENDED COUMADIN/WARFARIN INR THERAPY RANGESSTANDARD DOSE: 2.0 - 3.0 Includes: PROPHYLAXIS forvenous thrombosis, systemic embolization; TREATMENT for venous thrombosis and/or pulmonary embolus.HIGH RISK: Target INR is 2.5-3.5 for patients with mechanical heart valves.RAD, CHEST, 1 VIEW, NON [id number] 03:58:00Reason for exam:->intubatedShould this be performed at the bedside ?->YesFINAL REPORT CLINICAL INDICATION: Support lines. Comparison: 05/08/2018 The tip of an endotracheal tube is at the origin of the right mainstem bronchus. Retraction of 2 to 3 cm is recommended. The cardiomediastinal contours are stable. Central pulmonary vascular prominence and bilateral parenchymal opacities are unchanged. There is no pneumothorax. Support lines are otherwise stable. A verbal report was given to the patient's nurse, [place], at the time of dictation. Findings will be communicated to the physician in care of the patient. Signed: Mukund Saini MDReport VerifiedDate/ Time: 05/09/2018 03:58:24 Reading Location: [address] Reading Room [id number] 03:12:00 Test Item Value Reference Range Comments PROCALCITONIN (BEAKER) (test zdun=3177) 0.29 ng/mL <0.05 SEPSIS RISK (ng/mL)Low: 0.05-0.50Intermediate: 0.51-2.00High: & gt;=[id number] 03:12:00 Test Item Value Reference Range Comments PROTIME (BEAKER) (test pcnw=388) 16.2 seconds 11.7-14.7 INR (BEAKER) (test uilg=669) 1.3 <=5.9 PARTIAL THROMBOPLASTIN TIME (BEAKER) (test > seconds 22.5-36.0 vzvt=932) RECOMMENDED COUMADIN/WARFARIN INR THERAPY RANGESSTANDARD DOSE: 2.0 - 3.0 Includes: PROPHYLAXIS forvenous thrombosis, systemic embolization; TREATMENT for venous thrombosis and/or pulmonary embolus.HIGH RISK: Target INR is 2.5-3.5 for patients with mechanical heart valves.[id number] 03:04:00 Test Item Value Reference Range Comments PHOSPHORUS (BEAKER) (test pxfh=008) 1.5 mg/dL 2.3-4.7 BASIC METABOLIC [id number] 03:01:00 Test Item Value Reference Range Comments SODIUM (BEAKER) (test 136 meq/L 136-145 swhl=277) POTASSIUM (BEAKER) (test 3.9 meq/L 3.5-5.1 wotf=009) CHLORIDE (BEAKER) (test 103 meq/L 98-107 ljtc=560) CO2 (BEAKER) (test 26 meq/L 22-29 octx=106) BLOOD UREA NITROGEN 17 mg/dL 7-21 (BEAKER) (test irit=820) CREATININE (BEAKER) (test 1.76 mg/dL 0.57-1.25 pwdd=756) GLUCOSE RANDOM (BEAKER) 187 mg/dL 70-105 (test nolp=866) CALCIUM (BEAKER) (test 8.4 mg/dL 8.4-10.2 agzc=156) EGFR (BEAKER) (test 27 mL/min/1.73 sq m ESTIMATED GFR IS NOT rrkg=7752) ACCURATE CREATININE CLEARANCE IN PREDICTING GLOMERULAR FILTRATION RATE. ESTIMATED GFR IS NOT APPLICABLE FOR DIALYSIS PATIENTS. [id number] 02:55:00 Test Item Value Reference Range Comments MAGNESIUM (BEAKER) (test jrnv=526) 2.0 mg/dL 1.6-2.6 CBC W/PLT COUNT & AUTO [id number] 02:34:00 Test Item Value Reference Range Comments WHITE BLOOD CELL COUNT (BEAKER) (test oqad=985) 5.7 K/ L 3.5-10.5 RED BLOOD CELL COUNT (BEAKER) (test zsiu=981) 2.77 M/ L 3.93-5.22 HEMOGLOBIN (BEAKER) (test uzpb=537) 7.9 GM/DL 11.2-15.7 HEMATOCRIT (BEAKER) (test bmmv=175) 27.0 % 34.1-44.9 MEAN CORPUSCULAR VOLUME (BEAKER) (test pyew=979) 97.5 fL 79.4-94.8 MEAN CORPUSCULAR HEMOGLOBIN (BEAKER) (test 28.5 pg 25.6-32.2 qrcw=633) MEAN CORPUSCULAR HEMOGLOBIN CONC (BEAKER) (test 29.3 GM/DL 32.2-35.5 yzlt=552) RED CELL DISTRIBUTION WIDTH (BEAKER) (test 21.6 % 11.7-14.4 camc=181) PLATELET COUNT (BEAKER) (test qchx=027) 137 K/CU MM 150-450 MEAN PLATELET VOLUME (BEAKER) (test qsqi=908) 10.6 fL 9.4-12.3 NUCLEATED RED BLOOD CELLS (BEAKER) (test 0 /100 WBC 0-0 zjpb=145) NEUTROPHILS RELATIVE PERCENT (BEAKER) (test 80 % nhcw=917) LYMPHOCYTES RELATIVE PERCENT (BEAKER) (test 9 % ousv=942) MONOCYTES RELATIVE PERCENT (BEAKER) (test 12 % gnyb=611) EOSINOPHILS RELATIVE PERCENT (BEAKER) (test 0 % dxuq=363) BASOPHILS RELATIVE PERCENT (BEAKER) (test 0 % rpek=373) NEUTROPHILS ABSOLUTE COUNT (BEAKER) (test 4.54 K/ L 1.56-6.13 olff=408) LYMPHOCYTES ABSOLUTE COUNT (BEAKER) (test 0.50 K/ L 1.18-3.74 lnbt=394) MONOCYTES ABSOLUTE COUNT (BEAKER) (test 0.66 K/ L 0.24-0.36 vlqu=229) EOSINOPHILS ABSOLUTE COUNT (BEAKER) (test 0.00 K/ L 0.04-0.36 kyfk=317) BASOPHILS ABSOLUTE COUNT (BEAKER) (test 0.00 K/ L 0.01-0.08 psfx=492) IMMATURE GRANULOCYTES-RELATIVE PERCENT (BEAKER) 0 % 0-1 (test sere=9167) [id number] 00:43:00 Test Item Value Reference Range Comments PROTIME (BEAKER) (test sjqx=616) 17.0 seconds 11.7-14.7 INR (BEAKER) (test asju=112) 1.4 <=5.9 PARTIAL THROMBOPLASTIN TIME (BEAKER) (test > seconds 22.5-36.0 tsat=009) RECOMMENDED COUMADIN/WARFARIN INR THERAPY RANGESSTANDARD DOSE: 2.0 - 3.0 Includes: PROPHYLAXIS forvenous thrombosis, systemic embolization; TREATMENT for venous thrombosis and/or pulmonary embolus.HIGH RISK: Target INR is 2.5-3.5 for patients with mechanical heart valves.POCT-GLUCOSE [id number] 00:09:00 Test Item Value Reference Range Comments POC-GLUCOSE METER (BEAKER) 213 mg/dL 70-110 TESTED AT [address] (test jfzv=4225) [place] [address] POCT-GLUCOSE [id number] 18:47:00 Test Item Value Reference Range Comments POC-GLUCOSE METER (BEAKER) 219 mg/dL 70-110 TESTED AT [address] (test mrwc=8481) [place] [address] CBC (HEMOGRAM ONLY)2018-05-08 18:03:00 Test Item Value Reference Range Comments WHITE BLOOD CELL COUNT (BEAKER) (test iqqr=485) 6.3 K/ L 3.5-10.5 RED BLOOD CELL COUNT (BEAKER) (test uugw=003) 3.12 M/ L 3.93-5.22 HEMOGLOBIN (BEAKER) (test wkgp=105) 9.1 GM/DL 11.2-15.7 HEMATOCRIT (BEAKER) (test xgzg=054) 30.6 % 34.1-44.9 MEAN CORPUSCULAR VOLUME (BEAKER) (test qwke=749) 98.1 fL 79.4-94.8 MEAN CORPUSCULAR HEMOGLOBIN (BEAKER) (test 29.2 pg 25.6-32.2 udyi=720) MEAN CORPUSCULAR HEMOGLOBIN CONC (BEAKER) (test 29.7 GM/DL 32.2-35.5 pbzk=512) RED CELL DISTRIBUTION WIDTH (BEAKER) (test 21.8 % 11.7-14.4 fjag=178) PLATELET COUNT (BEAKER) (test wiqb=203) 147 K/CU MM 150-450 MEAN PLATELET VOLUME (BEAKER) (test umln=241) 10.5 fL 9.4-12.3 NUCLEATED RED BLOOD CELLS (BEAKER) (test 0 /100 WBC 0-0 gldp=994) POCT-GLUCOSE [id number] 13:06:00 Test Item Value Reference Range Comments POC-GLUCOSE METER (BEAKER) 133 mg/dL 70-[address] [facility] [address] [facility] (test lzbx=9756) [facility] [address] [id number] 11:26:00 Test Item Value Reference Range Comments PROCALCITONIN (BEAKER) (test mnyq=2523) 0.11 ng/mL <0.05 SEPSIS RISK (ng/mL)Low: 0.05-0.50Intermediate: 0.51-2.00High: & gt;=2.01BLOOD GAS, [id number] 09:45:00 Test Item Value Reference Range Comments PH ARTERIAL (BEAKER) (test riyy=287) 7.42 7.35-7.45 PCO2 ARTERIAL (BEAKER) (test cypo=046) 39 mmHg 35-45 PO2 ARTERIAL (BEAKER) (test qezl=183) 64 mmHg 80-90 O2 SATURATION ARTERIAL (BEAKER) (test qcuc=466) 92.6 % 96.0-97.0 HCO3 ARTERIAL (BEAKER) (test mjzx=200) 25 mmol/L 21-29 BASE EXCESS ARTERIAL (BEAKER) (test tfdg=577) 0.6 mmol/L -2.0-3.0 PATIENT TEMPERATURE (BEAKER) (test nmmq=6348) 37.2 C FIO2 (BEAKER) (test ygcy=6965) 24.0 % RAD, CHEST, 1 VIEW, NON [id number] 09:11:00Reason for exam:->/pulm edemaShould this be performed at the bedside?->YesFINAL REPORT Chest one view. Clinical history: /pulm edema Comparison: 05/07/2018 Discussion: A frontal chest is provided. Cardiomediastinal contours are unchanged. Tracheostomy tube is at the martinez, and can be retracted by approximately 3 cm. A NG tube is coiled in the gastric fundal region. There is mild interstitial prominence suggestive of edema. Small left effusion and unchanged retrocardiac opacity. No pneumothorax. Signed: Leon Navarroort Verified Date/Time: 05/08/2018 09:11:23 Reading Location: [facility] Reading Room Electronically signed by: LEON NAVARRO M.D. on 05/08 09:11 AMTROPONIN [id number] 08:13:00 Test Item Value Reference Range Comments TROPONIN I (BEAKER) (test ezbz=642) 0.28 ng/mL 0.00-0.03 Troponin I (TnI) levels must be interpreted in the context of the presenting symptoms and the clinical findings. Elevated TnI levels indicate myocardial damage, but are not specific for ischemic heart disease. Elevated TnI levels are seen in patients with other cardiac conditions (including myocarditis and congestive heart failure), and slight TnI elevations occur in patients with other conditions, including sepsis, renal failure, acidosis, acute neurological disease, and persistent tachyarrhythmia.[id number] 07:56:00 Test Item Value Reference Range Comments MAGNESIUM (BEAKER) (test znkb=560) 1.7 mg/dL 1.6-2.6 POCT-GLUCOSE [id number] 06:00:00 Test Item Value Reference Range Comments POC-GLUCOSE METER (BEAKER) 121 mg/dL 70-110 TESTED AT [address] (test vjva=1599) [facility] [address] [id number] 05:48:00 Test Item Value Reference Range Comments FERRITIN (BEAKER) (test xmcy=887) 577 ng/mL 5-275 TSH/FREE T4 IF [id number] 05:48:00 Test Item Value Reference Range Comments THYROID STIMULATING HORMONE (BEAKER) (test 1.73 uIU/mL 0.35-4.94 phpu=570) VITAMIN B12 AND [id number] 05:48:00 Test Item Value Reference Range Comments VITAMIN B12 (BEAKER) (test rikr=791) 677 pg/mL 213-816 FOLATE (BEAKER) (test nbur=940) 15.9 ng/mL >=7.0 IRON, TIBC, % SAT. (WITHOUT FERRITIN)2018-05-08 05:20:00 Test Item Value Reference Range Comments IRON (BEAKER) (test pjow=398) 29.0 ug/dL 40.0-160.0 TOTAL IRON BINDING CAPACITY (BEAKER) (test 138 ug/dL 250-450 rtyk=598) IRON % SATURATION (2) (BEAKER) (test cnbf=2910) 21 % 20-55 LIPID [id number] 05:18:00 Test Item Value Reference Range Comments TRIGLYCERIDES (BEAKER) (test uzwf=030) 77 mg/dL CHOLESTEROL (BEAKER) (test vnxn=410) 93 mg/dL HDL CHOLESTEROL (BEAKER) (test fcep=368) 42 mg/dL LDL CHOLESTEROL CALCULATED (BEAKER) (test adfn=727) 36 mg/dL Triglyceride Reference Range: Low Risk <150 Borderline 150- 199 High Risk 200-499 Very High Risk >=500Cholesterol Reference Range: Low Risk <200 Borderline 200-239 High Risk > 240HDL Cholesterol Reference Range: Low Risk >=60 High Risk <40LDL Cholesterol Reference Range: Optimal <100 Near Optimal 100-129 Borderline 130-159 High 160-189 Very High >=190BASIC METABOLIC [id number] 05:16:00 Test Item Value Reference Range Comments SODIUM (BEAKER) (test 138 meq/L 136-145 flqj=151) POTASSIUM (BEAKER) (test 3.2 meq/L 3.5-5.1 aswb=150) CHLORIDE (BEAKER) (test 102 meq/L 98-107 yegu=455) CO2 (BEAKER) (test 24 meq/L 22-29 qvsc=205) BLOOD UREA NITROGEN 16 mg/dL 7-21 (BEAKER) (test wnqx=608) CREATININE (BEAKER) (test 2.34 mg/dL 0.57-1.25 rytz=504) GLUCOSE RANDOM (BEAKER) 104 mg/dL 70-105 (test jufx=931) CALCIUM (BEAKER) (test 8.3 mg/dL 8.4-10.2 efhw=369) EGFR (BEAKER) (test 20 mL/min/1.73 sq m ESTIMATED GFR IS NOT pwrr=3715) ACCURATE CREATININE CLEARANCE IN PREDICTING GLOMERULAR FILTRATION RATE. ESTIMATED GFR IS NOT APPLICABLE FOR DIALYSIS PATIENTS. CBC W/PLT COUNT & AUTO [id number] 05:12:00 Test Item Value Reference Range Comments WHITE BLOOD CELL COUNT (BEAKER) (test oila=190) 6.0 K/ L 3.5-10.5 RED BLOOD CELL COUNT (BEAKER) (test cctq=980) 2.76 M/ L 3.93-5.22 HEMOGLOBIN (BEAKER) (test oeew=882) 8.1 GM/DL 11.2-15.7 HEMATOCRIT (BEAKER) (test vpgk=103) 26.6 % 34.1-44.9 MEAN CORPUSCULAR VOLUME (BEAKER) (test wnek=540) 96.4 fL 79.4-94.8 MEAN CORPUSCULAR HEMOGLOBIN (BEAKER) (test 29.3 pg 25.6-32.2 vsgg=062) MEAN CORPUSCULAR HEMOGLOBIN CONC (BEAKER) (test 30.5 GM/DL 32.2-35.5 efim=630) RED CELL DISTRIBUTION WIDTH (BEAKER) (test 21.5 % 11.7-14.4 ttej=693) PLATELET COUNT (BEAKER) (test uchy=382) 139 K/CU MM 150-450 MEAN PLATELET VOLUME (BEAKER) (test hrgk=425) 10.0 fL 9.4-12.3 NUCLEATED RED BLOOD CELLS (BEAKER) (test 0 /100 WBC 0-0 lsuu=311) NEUTROPHILS RELATIVE PERCENT (BEAKER) (test 75 % stui=093) LYMPHOCYTES RELATIVE PERCENT (BEAKER) (test 11 % oxpt=711) MONOCYTES RELATIVE PERCENT (BEAKER) (test 14 % urxu=599) EOSINOPHILS RELATIVE PERCENT (BEAKER) (test 1 % vpuv=253) BASOPHILS RELATIVE PERCENT (BEAKER) (test 0 % kxbz=925) NEUTROPHILS ABSOLUTE COUNT (BEAKER) (test 4.48 K/ L 1.56-6.13 drlk=479) LYMPHOCYTES ABSOLUTE COUNT (BEAKER) (test 0.64 K/ L 1.18-3.74 bjvk=406) MONOCYTES ABSOLUTE COUNT (BEAKER) (test 0.82 K/ L 0.24-0.36 utqx=857) EOSINOPHILS ABSOLUTE COUNT (BEAKER) (test 0.04 K/ L 0.04-0.36 bztf=077) BASOPHILS ABSOLUTE COUNT (BEAKER) (test 0.01 K/ L 0.01-0.08 sbzk=072) IMMATURE GRANULOCYTES-RELATIVE PERCENT (BEAKER) 0 % 0-1 (test mdrf=2160) POCT-GLUCOSE [id number] 00:11:00 Test Item Value Reference Range Comments POC-GLUCOSE METER (BEAKER) 86 mg/dL 70-110 TESTED AT [address] (test tdxu=4206) [place] [address] HEMOGLOBIN AND [id number] 18:56:00 Test Item Value Reference Range Comments HEMOGLOBIN (BEAKER) (test rzgm=629) 9.1 GM/DL 11.2-15.7 HEMATOCRIT (BEAKER) (test rtag=424) 29.7 % 34.1-44.9 POCT-GLUCOSE [id number] 18:46:00 Test Item Value Reference Range Comments POC-GLUCOSE METER (BEAKER) 95 mg/dL 70-110 TESTED AT [address] (test ygnh=7616) [place] [address] HEPATITIS B SURFACE [id number] 16:30:00 Test Item Value Reference Range Comments HEPATITIS B SURFACE ANTIGEN (2) (BEAKER) (test Nonreactive Nonreactive pdoz=6041) RESPIRATORY PANEL [id number] 10:45:00 Test Item Value Reference Range Comments HUMAN METAPNEUMOVIRUS (BEAKER) (test Not detected Not detected, Equivocal hurh=0232) RHINOVIRUS (BEAKER) (test cqec=1822) Not detected Not detected, Equivocal INFLUENZA A (BEAKER) (test dwux=1715) Not detected Not detected, Equivocal INFLUENZA A (NO SUBTYPE) (test Not detected, Equivocal emos=1292) INFLUENZA A SUBTYPE H1 (BEAKER) (test Not detected, Equivocal kmqs=8515) INFLUENZA A SUBTYPE H3 (BEAKER) (test Not detected, Equivocal nvpc=2433) INFLUENZA A SUBTYPE H1-2009 (BEAKER) Not detected, Equivocal (test mxxg=7920) INFLUENZA B (BEAKER) (test ekgs=6653) Not detected Not detected, Equivocal RESPIRATORY SYNCYTIAL VIRUS (BEAKER) Not detected Not detected, Equivocal (test kyae=1881) PARAINFLUENZA VIRUS 1 (BEAKER) (test Not detected Not detected, Equivocal uzvh=6171) PARAINFLUENZA VIRUS 2 (BEAKER) (test Not detected Not detected, Equivocal ngpe=9404) PARAINFLUENZA VIRUS 3 (BEAKER) (test Not detected Not detected, Equivocal real=1549) PARAINFLUENZA VIRUS 4 (BEAKER) (test Not detected Not detected, Equivocal cjte=1227) ADENOVIRUS (BEAKER) (test xqhc=0009) Not detected Not detected, Equivocal CORONAVIRUS 229E (BEAKER) (test Not detected Not detected, Equivocal upuj=5501) CORONAVIRUS HKU1 (BEAKER) (test Not detected Not detected, Equivocal szel=2085) CORONAVIRUS NL63 (BEAKER) (test Not detected Not detected, Equivocal nkoy=8314) CORONAVIRUS OC43 (BEAKER) (test Not detected Not detected, Equivocal ygbf=6797) BORDETELLA PERTUSSIS (BEAKER) (test Not detected Not detected, Equivocal ptuk=5145) CHLAMYDOPHILA PNEUMONIAE (BEAKER) (test Not detected Not detected, Equivocal ojet=2629) MYCOPLASMA PNEUMONIAE (BEAKER) (test Not detected Not detected, Equivocal vapk=7148) Other viruses and bacteria not targeted by this PCR panel cannot be excluded; therefore clinical correlation and follow up of serology, culture results, and other molecular studies is required. The results are not intended to be used as the sole means for clinical diagnosis or patient management decisions. This sample was tested at the [facility] using the [employer] Respiratory Panel. It is FDA cleared and has been verified and approved by the [facility] for clinical use on nasal swab specimens. It is not FDA-cleared for use on bronchial wash/lavage samples. However, for this sample type, validation was performed and test characteristics were determined and approved, by [facility] for clinical use under the Clinical Laboratory Improvement Amendments (CLIA) of 1988 requirements. Therefore, FDA clearance isnot required. This laboratory is CLIA-certified and [employer] ([employer])-accredited to perform high complexity testing.RAD, CHEST, 1 VIEW, NON [id number] 09:56:00Reason for exam:->ett locationShould this be performed at the bedside?->YesFINAL REPORT Portable chest. CLINICAL HISTORY: ett location. COMPARISON STUDY: Chest x-ray from yesterday. FINDINGS: The cardiac silhouette is enlarged. The pulmonary parenchyma demonstrates mild interstitial markings with atelectatic changes. The tip of the endotracheal tube projects 2.2 cm above the martinez The remaining support lines and tubes are unchanged. No pneumothorax is seen. Degenerative changes are noted. IMPRESSION: Tip of endotracheal tube projects 2.2 cm above the martinez. No other significant change.. Signed: Massimo Hopkins CJeport Verified Date/Time: 05/07/2018 09:56:07 Reading Location: [facility] Reading Room Electronically signed by: MASSIMO HOPKINS M.D. on 09:56 AMBLOOD GAS, [id number] 09:31:00 Test Item Value Reference Range Comments PH VENOUS (BEAKER) (test urse=303) 7.41 7.32-7.42 PCO2 VENOUS (BEAKER) (test dklc=321) 41 mmHg 41-51 PO2 VENOUS (BEAKER) (test ymgy=019) 26 mmHg 25-40 O2 SATURATION VENOUS (BEAKER) (test ocis=645) 47.9 % 40.0-70.0 HCO3 VENOUS (BEAKER) (test lyxa=811) 25 mmol/L 21-29 BASE EXCESS VENOUS (BEAKER) (test nzuw=557) 0.4 mmol/L -2.0-3.0 PATIENT TEMPERATURE (BEAKER) (test wwqp=8503) 37.0 C FIO2 (BEAKER) (test jctt=9260) 30.0 % VANCOMYCIN LEVEL, [id number] 06:44:00 Test Item Value Reference Range Comments VANCOMYCIN RANDOM (BEAKER) (test jgry=984) 21.7 ug/mL Reference Range: No NormalsTROPONIN [id number] 06:39:00 Test Item Value Reference Range Comments TROPONIN I (BEAKER) (test fsqn=431) 0.28 ng/mL 0.00-0.03 Troponin I (TnI) levels must be interpreted in the context of the presenting symptoms and the clinical findings. Elevated TnI levels indicate myocardial damage, but are not specific for ischemic heart disease. Elevated TnI levels are seen in patients with other cardiac conditions (including myocarditis and congestive heart failure), and slight TnI elevations occur in patients with other conditions, including sepsis, renal failure, acidosis, acute neurological disease, and persistent tachyarrhythmia.BASIC METABOLIC [id number] 06:32:00 Test Item Value Reference Range Comments SODIUM (BEAKER) (test 130 meq/L 136-145 slrz=374) POTASSIUM (BEAKER) (test 4.5 meq/L 3.5-5.1 srka=714) CHLORIDE (BEAKER) (test 96 meq/L 98-107 oysf=940) CO2 (BEAKER) (test 22 meq/L 22-29 mykk=928) BLOOD UREA NITROGEN 39 mg/dL 7-21 (BEAKER) (test jmhg=577) CREATININE (BEAKER) (test 4.39 mg/dL 0.57-1.25 qgub=501) GLUCOSE RANDOM (BEAKER) 86 mg/dL 70-105 (test zwxu=204) CALCIUM (BEAKER) (test 8.7 mg/dL 8.4-10.2 egbq=918) EGFR (BEAKER) (test 10 mL/min/1.73 sq m ESTIMATED GFR IS NOT lfgi=9697) ACCURATE CREATININE CLEARANCE IN PREDICTING GLOMERULAR FILTRATION RATE. ESTIMATED GFR IS NOT APPLICABLE FOR DIALYSIS PATIENTS. [id number] 06:27:00 Test Item Value Reference Range Comments MAGNESIUM (BEAKER) (test veha=477) 1.7 mg/dL 1.6-2.6 LACTIC ACID, [id number] 06:20:00 Test Item Value Reference Range Comments LACTATE BLOOD VENOUS (2) 0.6 mmol/L 0.5-2.2 Specimen slightly hemolyzed (BEAKER) (test oibq=0240) CBC W/PLT COUNT & AUTO [id number] 06:18:00 Test Item Value Reference Range Comments WHITE BLOOD CELL COUNT (BEAKER) (test qknx=285) 6.0 K/ L 3.5-10.5 RED BLOOD CELL COUNT (BEAKER) (test qyry=295) 3.08 M/ L 3.93-5.22 HEMOGLOBIN (BEAKER) (test ecxv=643) 9.2 GM/DL 11.2-15.7 HEMATOCRIT (BEAKER) (test zear=079) 30.2 % 34.1-44.9 MEAN CORPUSCULAR VOLUME (BEAKER) (test jvvu=243) 98.1 fL 79.4-94.8 MEAN CORPUSCULAR HEMOGLOBIN (BEAKER) (test 29.9 pg 25.6-32.2 jftt=903) MEAN CORPUSCULAR HEMOGLOBIN CONC (BEAKER) (test 30.5 GM/DL 32.2-35.5 hrtw=004) RED CELL DISTRIBUTION WIDTH (BEAKER) (test 21.1 % 11.7-14.4 zgjt=435) PLATELET COUNT (BEAKER) (test imnh=266) 150 K/CU MM 150-450 MEAN PLATELET VOLUME (BEAKER) (test osjr=354) 10.2 fL 9.4-12.3 NUCLEATED RED BLOOD CELLS (BEAKER) (test 0 /100 WBC 0-0 dpnn=505) NEUTROPHILS RELATIVE PERCENT (BEAKER) (test 92 % qokm=930) LYMPHOCYTES RELATIVE PERCENT (BEAKER) (test 6 % fvyi=471) MONOCYTES RELATIVE PERCENT (BEAKER) (test 2 % vulr=657) EOSINOPHILS RELATIVE PERCENT (BEAKER) (test 0 % ztot=014) BASOPHILS RELATIVE PERCENT (BEAKER) (test 0 % imxh=516) NEUTROPHILS ABSOLUTE COUNT (BEAKER) (test 5.52 K/ L 1.56-6.13 hivp=380) LYMPHOCYTES ABSOLUTE COUNT (BEAKER) (test 0.33 K/ L 1.18-3.74 wuzy=586) MONOCYTES ABSOLUTE COUNT (BEAKER) (test 0.10 K/ L 0.24-0.36 epih=825) EOSINOPHILS ABSOLUTE COUNT (BEAKER) (test 0.02 K/ L 0.04-0.36 xjem=616) BASOPHILS ABSOLUTE COUNT (BEAKER) (test 0.01 K/ L 0.01-0.08 xtew=215) IMMATURE GRANULOCYTES-RELATIVE PERCENT (BEAKER) 1 % 0-1 (test svza=7402) B-TYPE NATRIURETIC FACTOR (BNP)2018-05-07 00:58:00 Test Item Value Reference Range Comments B-TYPE NATRIURETIC PEPTIDE (BEAKER) (test 4061 pg/mL 0-100 rewc=672) URINALYSIS W/ REFLEX URINE [id number] 00:39:00 Test Item Value Reference Range Comments COLOR (BEAKER) (test xuom=612) Red CLARITY (BEAKER) (test xdod=754) Cloudy SPECIFIC GRAVITY UA (BEAKER) (test sirh=431) 1.015 1.001-1.035 PH UA (BEAKER) (test yedw=916) 5.0 5.0-8.0 PROTEIN UA (BEAKER) (test mvco=676) 70 mg/dL Negative GLUCOSE UA (BEAKER) (test dabl=794) Negative Negative KETONES UA (BEAKER) (test xuhx=417) Negative Negative BILIRUBIN UA (BEAKER) (test lwtk=010) Negative Negative BLOOD UA (BEAKER) (test qkxb=391) Large Negative NITRITE UA (BEAKER) (test gmqc=941) Negative Negative LEUKOCYTE ESTERASE UA (BEAKER) (test fjut=960) Moderate Negative UROBILINOGEN UA (BEAKER) (test bzkg=791) 0.2 mg/dL 0.2-1.0 RBC UA (BEAKER) (test izrb=663) 4889 /HPF WBC UA (BEAKER) (test hkfi=864) 206 /HPF BACTERIA (BEAKER) (test gawq=867) Moderate SQUAMOUS EPITHELIAL (BEAKER) (test bssa=427) 11 /HPF SOURCE(BEAKER) (test wdep=5783) TROPONIN [id number] 00:17:00 Test Item Value Reference Range Comments TROPONIN I (BEAKER) (test yokk=541) 0.24 ng/mL 0.00-0.03 Troponin I (TnI) levels must be interpreted in the context of the presenting symptoms and the clinical findings. Elevated TnI levels indicate myocardial damage, but are not specific for ischemic heart disease. Elevated TnI levels are seen in patients with other cardiac conditions (including myocarditis and congestive heart failure), and slight TnI elevations occur in patients with other conditions, including sepsis, renal failure, acidosis, acute neurological disease, and persistent tachyarrhythmia.BLOOD GAS, [id number] 23:50:00 Test Item Value Reference Range Comments PH ARTERIAL (BEAKER) (test xhff=259) 7.31 7.35-7.45 PCO2 ARTERIAL (BEAKER) (test tnvv=164) 51 mmHg 35-45 PO2 ARTERIAL (BEAKER) (test xlpw=594) 93 mmHg 80-90 O2 SATURATION ARTERIAL (BEAKER) (test emkv=662) 96.2 % 96.0-97.0 HCO3 ARTERIAL (BEAKER) (test rput=483) 25 mmol/L 21-29 BASE EXCESS ARTERIAL (BEAKER) (test xegg=201) -1.2 mmol/L -2.0-3.0 PATIENT TEMPERATURE (BEAKER) (test nopv=5877) 37.5 C FIO2 (BEAKER) (test dvpt=2279) 40.0 % RAD, CHEST, 1 VIEW, NON [id number] 23:28:00Reason for exam:->respiratory failure, arrived intubatedFINAL REPORT History: Intubation. FINDINGS: No comparisons. Single AP view ofthe chest shows a mildly enlarged heart. Mild [...] bilaterally in the iliac vessels. A right femoralcentral line is present. IMPRESSION: 1. Mild cardiomegaly and mild increased pulmonary vascularity without overt edema. Endotracheal tube tip appears to lie just above the level of the martinez but the tip is not well-seen. Repeat chest could be performed for further evaluation if indicated clinically. 2. Unremarkable abdominal series with a nonspecific bowel gas pattern. Signed: Winsome Burleson MDReportVerified Date/Time: 05/06/2018 23:28:30 Reading Location : [facility] Diagnostic Imaging Reading Room - [place] [address] RAD, ABDOMEN/KUB, 1 VIEW [id number] 23:28:00Reason for exam:->intubated, NGT from OShould this be performed at the bedside?->YesFINAL REPORT History: Intubation. FINDINGS: No comparisons. Single AP view ofthe chest shows a mildly enlarged heart. Mild [...] bilaterally in the iliac vessels. A right femoralcentral line is present. IMPRESSION: 1. Mild cardiomegaly and mild increased pulmonary vascularity without overt edema. Endotracheal tube tip appears to lie just above the level of the martinez but the tip is not well-seen. Repeat chest could be performed for further evaluation if indicated clinically. 2. Unremarkable abdominal series with a nonspecific bowel gas pattern. Signed: Winsome Burleson MDReportVerified Date/Time: 05/06/2018 23:28:30 Reading Location : [facility] Diagnostic Imaging Reading Room - [place] [address] COMPREHENSIVE METABOLIC [id number] 23:04:00 Test Item Value Reference Range Comments TOTAL PROTEIN (BEAKER) 4.9 gm/dL 6.0-8.3 (test mjuc=941) ALBUMIN (BEAKER) (test 3.1 g/dL 3.5-5.0 errj=5225) ALKALINE PHOSPHATASE 132 U/L 40-150 (BEAKER) (test zgcp=482) BILIRUBIN TOTAL (BEAKER) 0.5 mg/dL 0.2-1.2 (test ktte=539) SODIUM (BEAKER) (test 130 meq/L 136-145 gedm=369) POTASSIUM (BEAKER) (test 4.4 meq/L 3.5-5.1 cdcs=912) CHLORIDE (BEAKER) (test 96 meq/L 98-107 mfcd=771) CO2 (BEAKER) (test 24 meq/L 22-29 uarn=459) BLOOD UREA NITROGEN 13 mg/dL 7-21 (BEAKER) (test sbia=625) CREATININE (BEAKER) (test 4.33 mg/dL 0.57-1.25 yzji=810) GLUCOSE RANDOM (BEAKER) 85 mg/dL 70-105 (test sgom=975) CALCIUM (BEAKER) (test 8.8 mg/dL 8.4-10.2 pkob=493) AST (SGOT) (BEAKER) (test 27 U/L 5-34 loro=199) ALT (SGPT) (BEAKER) (test 25 U/L 6-55 llzv=982) EGFR (BEAKER) (test 10 mL/min/1.73 sq m ESTIMATED GFR IS NOT veot=4932) ACCURATE CREATININE CLEARANCE IN PREDICTING GLOMERULAR FILTRATION RATE. ESTIMATED GFR IS NOT APPLICABLE FOR DIALYSIS PATIENTS. [id number] 23:01:00 Test Item Value Reference Range Comments PROTIME (BEAKER) (test utka=288) 14.9 seconds 11.7-14.7 INR (BEAKER) (test kjem=611) 1.2 <=5.9 PARTIAL THROMBOPLASTIN TIME (BEAKER) (test 32.0 seconds 22.5-36.0 ttvo=735) RECOMMENDED COUMADIN/WARFARIN INR THERAPY RANGESSTANDARD DOSE: 2.0 - 3.0 Includes: PROPHYLAXIS forvenous thrombosis, systemic embolization; TREATMENT for venous thrombosis and/or pulmonary embolus.HIGH RISK: Target INR is 2.5-3.5 for patients with mechanical heart valves.POCT-GLUCOSE [id number] 22:56:00 Test Item Value Reference Range Comments POC-GLUCOSE METER (BEAKER) 96 mg/dL 70-[address] [facility] [address] [facility] (test ixcx=9609) [facility] [address] [id number] 22:55:00 Test Item Value Reference Range Comments MAGNESIUM (BEAKER) (test mwhi=773) 2.2 mg/dL 1.6-2.6 LACTIC ACID, [id number] 22:55:00 Test Item Value Reference Range Comments LACTATE BLOOD ARTERIAL (2) (BEAKER) (test 0.8 mmol/L 0.5-2.2 jthc=0592) CBC W/PLT COUNT & AUTO [id number] 22:51:00 Test Item Value Reference Range Comments WHITE BLOOD CELL COUNT (BEAKER) (test emtu=883) 7.8 K/ L 3.5-10.5 RED BLOOD CELL COUNT (BEAKER) (test uyae=434) 3.20 M/ L 3.93-5.22 HEMOGLOBIN (BEAKER) (test udbx=361) 9.3 GM/DL 11.2-15.7 HEMATOCRIT (BEAKER) (test stnj=244) 31.7 % 34.1-44.9 MEAN CORPUSCULAR VOLUME (BEAKER) (test uucq=524) 99.1 fL 79.4-94.8 MEAN CORPUSCULAR HEMOGLOBIN (BEAKER) (test 29.1 pg 25.6-32.2 acpi=342) MEAN CORPUSCULAR HEMOGLOBIN CONC (BEAKER) (test 29.3 GM/DL 32.2-35.5 tofh=036) RED CELL DISTRIBUTION WIDTH (BEAKER) (test 21.0 % 11.7-14.4 kdoa=721) PLATELET COUNT (BEAKER) (test mokw=944) 149 K/CU MM 150-450 MEAN PLATELET VOLUME (BEAKER) (test alvf=305) 10.4 fL 9.4-12.3 NUCLEATED RED BLOOD CELLS (BEAKER) (test 0 /100 WBC 0-0 drbf=148) NEUTROPHILS RELATIVE PERCENT (BEAKER) (test 80 % hrba=936) LYMPHOCYTES RELATIVE PERCENT (BEAKER) (test 8 % iibg=703) MONOCYTES RELATIVE PERCENT (BEAKER) (test 9 % nuqi=636) EOSINOPHILS RELATIVE PERCENT (BEAKER) (test 3 % psqm=218) BASOPHILS RELATIVE PERCENT (BEAKER) (test 0 % cihl=279) NEUTROPHILS ABSOLUTE COUNT (BEAKER) (test 6.24 K/ L 1.56-6.13 fnrw=853) LYMPHOCYTES ABSOLUTE COUNT (BEAKER) (test 0.60 K/ L 1.18-3.74 ijru=313) MONOCYTES ABSOLUTE COUNT (BEAKER) (test 0.72 K/ L 0.24-0.36 nqeo=397) EOSINOPHILS ABSOLUTE COUNT (BEAKER) (test 0.20 K/ L 0.04-0.36 fhkm=536) BASOPHILS ABSOLUTE COUNT (BEAKER) (test 0.01 K/ L 0.01-0.08 ubho=743) IMMATURE GRANULOCYTES-RELATIVE PERCENT (BEAKER) 0 % 0-1 (test mdjs=9234) OXYGEN SATURATION, [id number] 22:44:00 Test Item Value Reference Range Comments O2 SATURATION (MEASURED) (BEAKER) (test qoyd=2734) 70.8 % B-TYPE NATRIURETIC [id number] 08:19:00 Test Item Value Reference Range Comments B-TYPE NATRIURETIC PEPTIDE (test code=BNP) > 5000.0 PG/ML 0-100 BASIC METABOLIC [id number] 08:04:00 Test Item Value Reference Range Comments [...] (test code=CA) 9.1 MG/DL 8.4-10.2 CBC W/AUTO [id number] 07:51:00 Test Item Value Reference Range Comments [...] 2 ng/mL are obtained. 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 Technologist: Sandra Greenfield RT(R); Yadira Faulkner RT(R) Transcrpt Date/Tm/Trnsp: 04/16/2018 (0752) t.BRISSAR.BC0 Orig Print D/T: S: 04/16/2018 (0755) [facility] NAME: DALJIT JOHNSON [address] [address] PHYS: THOJO[address] - [place] [address] : 1930 AGE: 88 SEX: F LOC: Z.I12 A PHONE #: [phone] EXAM DATE: 04/16/2018 STATUS: ADM IN FAX #: [phone] RADIOLOGY NO: PAGE 1 Signed ReportBASIC METABOLIC [id number] 05:30:00 Test Item Value Reference Range Comments [...] (test code=CA) 9.2 MG/DL 8.4-10.2 CBC W/AUTO [id number] 05:06:00 Test Item Value Reference Range Comments [...] (test code=NRBC#) 0.00 K/mm3 0.0-0.1 BASIC METABOLIC [id number] 05:41:00 Test Item Value Reference Range Comments [...] 0.52-1.04 CALCIUM (test code=CA) 10.2 MG/DL 8.4-10.2 [id number] 05:41:00 Test Item Value Reference Range Comments PHOSPHOROUS (test code=PHOS) 3.4 MG/DL 2.5-4.5 [id number] 05:41:00 Test Item Value Reference Range Comments MAGNESIUM (test code=MAG) 2.0 MG/DL 1.6-2.3 CBC W/AUTO [id number] 05:16:00 Test Item Value Reference Range Comments [...] # (test code=NRBC#) 0.0 K/mm3 0.0-0.1 CPK-MB [id number] 00:30:00 Test Item Value Reference Range Comments CREATINE KINASE (CK) (test code=CK) 43 UNITS/L 30-135 CKMB (test code=CKMBT) 2.63 NG/ML 0.0-5.6 CKMB INDEX (test code=CKMBI) 6.1 % 4.0-4.4 [id number] 00:30:00 Test Item Value Reference Range Comments TROPONIN-I (test 0.517 NG/ML 0.012-0.033 CALLED TO JESSICA Virk& code=TROPI) READBACK ON 04/15/18 AT 0030 BY Antelmo Mena HGB [id number] 00:05:00 Test Item Value Reference Range Comments HEMOGLOBIN (test code=HGB) 9.8 G/DL 11.2-14.9 HEMATOCRIT (test code=HCT) 31.5 % 33.2-43.5 CPK-MB [id number] 20:46:00 Test Item Value Reference Range Comments CREATINE KINASE (CK) (test code=CK) 43 UNITS/L 30-135 CKMB (test code=CKMBT) 2.63 NG/ML 0.0-5.6 CKMB INDEX (test code=CKMBI) 6.1 % 4.0-4.4 [id number] 20:46:00 Test Item Value Reference Range Comments TROPONIN-I (test 0.460 NG/ML 0.012-0.033 CALLED TO JESSICA Virk& code=TROPI) READBACK ON 04/14/18 AT 2046 BY Maya Parker CPK-MB [id number] 20:30:00 Test Item Value Reference Range Comments CREATINE KINASE (CK) (test code=CK) 43 UNITS/L 30-135 CKMB (test code=CKMBT) NG/ML 0.0-5.6 CKMB INDEX (test code=CKMBI) % 4.0-4.4 [id number] 20:30:00 Test Item Value Reference Range Comments TROPONIN-I (test code=TROPI) NG/ML 0.0-0.045 LACTIC [id number] 17:43:00 Test Item Value Reference Range Comments LACTIC ACID (test code=LACT) 0.8 MMOL/L 0.7-2.1 CPK-MB [id number] 14:06:00 Test Item Value Reference Range Comments CREATINE KINASE (CK) (test code=CK) 49 UNITS/L 30-135 CKMB (test code=CKMBT) 3.88 NG/ML 0.0-5.6 CKMB INDEX (test code=CKMBI) 7.9 % 4.0-4.4 [id number] 14:06:00 Test Item Value Reference Range Comments TROPONIN-I (test 0.248 NG/ML 0.012-0.033 CALLED TO FAITH.Adonay& READBACK ON code=TROPI) 04/14/18 AT 1405 BY Mike Perez LACTIC [id number] 13:49:00 Test Item Value Reference Range Comments LACTIC ACID (test code=LACT) 0.9 MMOL/L 0.7-2.1 CPK-MB [id number] 13:49:00 Test Item Value Reference Range Comments CREATINE KINASE (CK) (test code=CK) 49 UNITS/L 30-135 CKMB (test code=CKMBT) NG/ML 0.0-5.6 CKMB INDEX (test code=CKMBI) % 4.0-4.4 [id number] 13:49:00 Test Item Value Reference Range Comments TROPONIN-I (test code=TROPI) NG/ML 0.0-0.045 PROTHROMBIN [id number] 11:52:00 Test Item Value Reference Range Comments [...] JOSSELYN PETERSON 04/14/18 AT 1052 BY Franchesca GarrisonVE METABOLIC [id number] 11:38:00 Test Item Value Reference Range Comments [...] ALKALINE PHOSPHATASE (test 70 UNITS/L 38-126 code=ALKP) [id number] 11:38:00 Test Item Value Reference Range Comments PHOSPHOROUS (test code=PHOS) 3.0 MG/DL 2.5-4.5 [id number] 11:38:00 Test Item Value Reference Range Comments MAGNESIUM (test code=MAG) 2.0 MG/DL 1.6-2.3 LIPOPROTEIN LDL [id number] 11:38:00 Test Item Value Reference Range Comments LIPOPROTEIN LDL DIRECT (test 40 mg/dL 100-129 code=LDLDIR) ===Reference Interval: mg/dL mmol/L ---------Optimal <100 <2.6Near/above optimal 100-129 2.6-3.3Borderline High 130-159 3.4-4.1High 160-189 4.1-4.9Very High >=190 >=4.9=========This LDL result is a direct measurement.========= CPK-MB [id number] 11:38:00 Test Item Value Reference Range Comments CREATINE KINASE (CK) (test code=CK) 51 UNITS/L 30-135 CKMB (test code=CKMBT) 3.07 NG/ML 0.0-5.6 CKMB INDEX (test code=CKMBI) 6.0 % 4.0-4.4 [id number] 11:38:00 Test Item Value Reference Range Comments [...] < 2 ng/mL are obtained. COMPREHENSIVE METABOLIC [id number] 11:27:00 Test Item Value Reference Range Comments [...] ALKALINE PHOSPHATASE (test 70 UNITS/L 38-126 code=ALKP) [id number] 11:27:00 Test Item Value Reference Range Comments PHOSPHOROUS (test code=PHOS) 3.0 MG/DL 2.5-4.5 [id number] 11:27:00 Test Item Value Reference Range Comments MAGNESIUM (test code=MAG) 2.0 MG/DL 1.6-2.3 LIPOPROTEIN LDL [id number] 11:27:00 Test Item Value Reference Range Comments LIPOPROTEIN LDL DIRECT (test code=LDLDIR) mg/dL 100-129 CPK-MB [id number] 11:27:00 Test Item Value Reference Range Comments CREATINE KINASE (CK) (test code=CK) 51 UNITS/L 30-135 CKMB (test code=CKMBT) 3.07 NG/ML 0.0-5.6 CKMB INDEX (test code=CKMBI) 6.0 % 4.0-4.4 [id number] 11:27:00 Test Item Value Reference Range Comments [...] < 2 ng/mL are obtained. COMPREHENSIVE METABOLIC [id number] 10:29:00 Test Item Value Reference Range Comments [...] ALKALINE PHOSPHATASE (test 70 UNITS/L 38-126 code=ALKP) [id number] 10:29:00 Test Item Value Reference Range Comments PHOSPHOROUS (test code=PHOS) 3.0 MG/DL 2.5-4.5 [id number] 10:29:00 Test Item Value Reference Range Comments MAGNESIUM (test code=MAG) 2.0 MG/DL 1.6-2.3 LIPOPROTEIN LDL [id number] 10:29:00 Test Item Value Reference Range Comments LIPOPROTEIN LDL DIRECT (test code=LDLDIR) mg/dL 100-129 CPK-MB [id number] 10:29:00 Test Item Value Reference Range Comments CREATINE KINASE (CK) (test code=CK) 51 UNITS/L 30-135 CKMB (test code=CKMBT) 3.07 NG/ML 0.0-5.6 CKMB INDEX (test code=CKMBI) 6.0 % 4.0-4.4 [id number] 10:29:00 Test Item Value Reference Range Comments TROPONIN-I (test code=TROPI) 0.091 NG/ML 0.012-0.033 PROCALCITONIN (PCT)2018-04-14 10:29:00 Test Item Value Reference Range Comments PROCALCITONIN (PCT) (test code=PROCAL) NG/ML LACTIC [id number] 10:08:00 Test Item Value Reference Range Comments LACTIC ACID (test code=LACT) 2.6 MMOL/L 0.7-2.1 CBC W/AUTO [id number] 09:43:00 Test Item Value Reference Range Comments [...] (test code=NRBC#) 0.0 K/mm3 0.0-0.1 ARTERIAL BLOOD [id number] 08:51:00 Test Item Value Reference Range Comments [...] (test code=COHBGFFIO2) 80 % - XR CHEST [id number] 08:07:00 Patient Name: DALJIT JOHNSON Unit No: [id number] EXAMS: CPT CODE: [id number] XR CHEST 1V 48447 Location: U19. CHEST, FRONTAL VIEW HISTORY: CODE [...] Aguayo; Deshaun Greene MD Technologist: Katia Slater RT (R) Transcrpt Date/Tm/Trnsp: 2018 (0807) tJanuarySDR.SP17 Orig Print D/T: S: 04/14/2018 (0810) [facility] NAME: DALJIT JOHNSON [address] PHYS: [place] [address] : 1930 AGE: 88 SEX: F LOC: Z.I12 A PHONE #: [phone] EXAM DATE: 04/14/2018 STATUS: ADM IN FAX #: [phone] RADIOLOGY NO: PAGE 1 Signed ReportGLUCOSE BEDSIDE [id number] 07:26:00 Test Item Value Reference Range Comments GLUCOSE BEDSIDE TESTING (test code=GLUBED) 97 MG/DL 60-99 BASIC METABOLIC [id number] 06:28:00 Test Item Value Reference Range Comments [...] 0.52-1.04 CALCIUM (test code=CA) 8.7 MG/DL 8.4-10.2 [id number] 06:28:00 Test Item Value Reference Range Comments PHOSPHOROUS (test code=PHOS) 3.5 MG/DL 2.5-4.5 [id number] 06:28:00 Test Item Value Reference Range Comments MAGNESIUM (test code=MAG) 1.9 MG/DL 1.6-2.3 CBC W/AUTO [id number] 05:47:00 Test Item Value Reference Range Comments [...] code=NRBC#) 0.0 K/mm3 0.0-0.1 - XR CHEST [id number] 08:19:00 Patient Name: DALJIT JOHNSON Unit No: [id number] EXAMS: CPT CODE: [id number] XR CHEST 1V 22826 LOCATION: T18 EXAM: CHEST 1 VIEW INDICATION: [...] Jason Renee, RT(R) Transcrpt Date/Tm/Trnsp: 04/12/2018 (08) t.SDR.JP19 Orig Print D/T: S: 04/12/2018 (0822) [facility] NAME: DALJIT JOHNSON [facility] [address] PHYS: THOSH.Hemal - [place] [address] : 1930 AGE: 88 SEX: F LOC: Z.358 A PHONE #: [phone] EXAM DATE: STATUS: ADM IN FAX #: [phone] RADIOLOGY NO: PAGE 1 Signed ReportBASIC METABOLIC [id number] 06:15:00 Test Item Value Reference Range [...] (test code=CA) 8.5 MG/DL 8.4-10.2 CBC W/AUTO [id number] 06:01:00 Test Item Value Reference Range Comments [...] (test code=NRBC#) 0.0 K/mm3 0.0-0.1 COMPREHENSIVE METABOLIC [id number] 07:44:00 Test Item Value Reference Range Comments [...] ALKALINE PHOSPHATASE (test 58 UNITS/L 38-126 code=ALKP) [id number] 07:44:00 Test Item Value Reference Range Comments PHOSPHOROUS (test code=PHOS) 4.0 MG/DL 2.5-4.5 [id number] 07:44:00 Test Item Value Reference Range Comments MAGNESIUM (test code=MAG) 1.9 MG/DL 1.6-2.3 B-TYPE NATRIURETIC [id number] 07:38:00 Test Item Value Reference Range Comments B-TYPE NATRIURETIC PEPTIDE (test code=BNP) > 5000.0 PG/ML 0-100 CBC W/AUTO [id number] 07:10:00 Test Item Value Reference Range Comments [...] (test code=NRBC#) 0.0 K/mm3 0.0-0.1 B-TYPE NATRIURETIC [id number] 07:57:00 Test Item Value Reference Range Comments B-TYPE NATRIURETIC PEPTIDE (test code=BNP) > 5000.0 PG/ML 0-100 BASIC METABOLIC [id number] 07:42:00 Test Item Value Reference Range Comments [...] (test code=CA) 8.6 MG/DL 8.4-10.2 CBC W/AUTO [id number] 07:17:00 Test Item Value Reference Range Comments [...] code=NRBC#) 0.0 K/mm3 0.0-0.1 - XR CHEST [id number] 06:50:00 Patient Name: DALJIT JOHNSON Unit No: [id number] EXAMS: CPT CODE: [id number] XR CHEST 1V 13269 Exam: Chest portable erect Location: F6 History: [...] Carrera NP Technologist: Desiree Flores (RT ) ([facility]) Transcrpt Date/Tm/Trnsp: 04/10/2018 (0608) [place] Orig Print D/T: S: 04/10/2018 (0654) [facility] NAME: DALJIT JOHNSON [address] PHYS: THOSH.Hemal - DeandreAveElodia [employer] [place] [address] : 1930 AGE: 88 SEX: F LOC: Z.358 A PHONE #: [phone] EXAM DATE: 04/10/2018 STATUS: ADM IN FAX #: [phone] RADIOLOGY NO: PAGE 1 Signed Report- XR CHEST [id number] 09:10:00 Patient Name: DALJIT JOHNSON Unit No: [id number] EXAMS: CPT CODE: [id number] XR CHEST 1V 86300 LOCATION: T18 EXAM: CHEST 1 VIEW INDICATION: [...] signed by: Hanane Landeros MD CC: Cas Carrera NP Technologist: RT Grace(R) Transcrpt Date/Tm/Trnsp: 04/09/2018 (0910) t.SDR.JP19 Orig Print D/T: S: 04/09/2018 (0914) [facility] NAME: DALJIT JOHNSON [address] PHYS: LINETTE Smith [place] [address] : 1930 AGE : 88 SEX: F LOC : Z.358 A PHONE #: [phone] EXAM DATE: 04/09/2018 STATUS : ADM IN FAX #: [phone] RADIOLOGY NO: PAGE 1 Signed ReportBASIC METABOLIC [id number] 05:02:00 Test Item Value Reference Range Comments [...] (test code=CA) 8.6 MG/DL 8.4-10.2 CBC W/AUTO [id number] 04:51:00 Test Item Value Reference Range Comments [...] RECOLLECTION NEEDED ON 04/09/18 AT 0431 BY KOKOSHREASON: SPECIMEN CLOTTEDNOTIFIED PATIENT CARE STAFF: JI T- XR CHEST [id number] 07:47:00 Patient Name: DALJIT JOHNSON Unit No: [id number] EXAMS: CPT CODE: [id number] XR CHEST 1V 77590 EXAM: Portable chest x-ray Location: B2 COMPARISON: [...] signed by: Albert Turk MD CC: Cas Carrera NP Technologist: Sandra Greenfield RT(R) Transcrpt Date/Tm/Trnsp: 04/08/2018 (0747) RomyBC0 Orig Print D/T: S: 2018 (0750) [facility] NAME: DALJIT JOHNSON [address] [facility]YS[facility] [address] : 1930 AGE: 88 SEX: F LOC: Nadege Michaud PHONE #: [phone] EXAM DATE: 04/08/2018 STATUS: ADM IN FAX #: [phone] RADIOLOGY NO: PAGE 1 Signed ReportB-TYPE NATRIURETIC [id number] 06:08:00 Test Item Value Reference Range Comments B-TYPE NATRIURETIC PEPTIDE (test code=BNP) > 5000.0 PG/ML 0-100 BASIC METABOLIC [id number] 05:57:00 Test Item Value Reference Range Comments [...] (test code=CA) 8.2 MG/DL 8.4-10.2 CBC W/AUTO [id number] 05:51:00 Test Item Value Reference Range Comments [...] # (test code=NRBC#) 0.0 K/mm3 0.0-0.1 HGB [id number] 21:32:00 Test Item Value Reference Range Comments HEMOGLOBIN (test code=HGB) 9.0 G/DL 11.2-14.9 HEMATOCRIT (test code=HCT) 29.0 % 33.2-43.5 Comments to Pick Up Man: POST TRANSFUSIONBASIC METABOLIC [id number] 06:06: 00 Test Item Value Reference Range [...] 0.52-1.04 CALCIUM (test code=CA) 8.3 MG/DL 8.4-10.2 [id number] 06:06:00 Test Item Value Reference Range Comments PHOSPHOROUS (test code=PHOS) 2.8 MG/DL 2.5-4.5 [id number] 06:06:00 Test Item Value Reference Range Comments MAGNESIUM (test code=MAG) 2.0 MG/DL 1.6-2.3 B-TYPE NATRIURETIC [id number] 06:05:00 Test Item Value Reference Range Comments B-TYPE NATRIURETIC PEPTIDE (test code=BNP) > 5000.0 PG/ML 0-100 CBC W/AUTO [id number] 05:38:00 Test Item Value Reference Range Comments [...] # (test code=NRBC#) 0.0 K/mm3 0.0-0.1 DIFFERENTIAL [id number] 16:20:00 Test Item Value Reference Range Comments RBC MORPHOLOGY REQUIRED (test code=RBCM) ABNORMAL POLYCHROMASIA (test code=POLC) FEW NONE HYPOCHROMIA (test code=HYPO) SLIGHT NONE POIKILOCYTOSIS (test code=POIK) FEW NONE ANISOCYTOSIS (test code=ANISO) SLIGHT NONE MICROCYTOSIS (test code=MICR) FEW NONE PLATELET ESTIMATE (test code=PLTEST) ADEQUATE ADEQUATE PLATELET MORPHOLOGY (test code=PLTMORPH) NORMAL NORMAL HGB [id number] 16:20:00 Test Item Value Reference Range Comments HEMOGLOBIN (test code=HGB) 5.6 G/DL 11.2-14.9 CALLED TO STANFORD Fuentes RN & READBACK ON 04/05/18 AT 0253 BY Gordo Nolan HEMATOCRIT (test code=HCT) 18.3 % 33.2-43.5 CALLED TO STANFORD Fuentes RN & READBACK ON 04/05/18 AT 0253 BY Gordo Nolan [id number] 12:14:00 Test Item Value Reference Range Comments HEMOGLOBIN (test code=HGB) 8.7 G/DL 11.2-14.9 BASIC METABOLIC [id number] 06:02:00 Test Item Value Reference Range Comments [...] CALCIUM (test code=CA) 8.3 MG/DL 8.4-10.2 PROTHROMBIN [id number] 05:33:00 Test Item Value Reference Range Comments [...] systemic embolism. 3.0 - 4.5 CBC W/AUTO [id number] 05:15:00 Test Item Value Reference Range Comments [...] RBC # (test code=NRBC#) 0.0 K/mm3 0.0-0.1 [id number] 05:11:00 Test Item Value Reference Range Comments HEMOGLOBIN (test code=HGB) 7.6 G/DL 11.2-14.9 [id number] 01:46:00 Test Item Value Reference Range Comments HEMOGLOBIN (test code=HGB) 8.0 G/DL 11.2-14.9 [id number] 18:54:00 Test Item Value Reference Range Comments HEMOGLOBIN (test code=HGB) 8.6 G/DL 11.2-14.9 GLUCOSE BEDSIDE [id number] 13:33:00 Test Item Value Reference Range Comments GLUCOSE BEDSIDE TESTING (test code=GLUBED) 118 MG/DL 60-99 CHEMISTRY 8 [id number] 13:02:00 Test Item Value Reference Range Comments [...] Range: > or=60 ml/min/1.73 m2 CHEMISTRY 8 [id number] 13:02:00 Test Item Value Reference Range Comments [...] Formula)Reference Range: > or=60 ml/min/1.73 m2 PROTHROMBIN [id number] 10:58:00 Test Item Value Reference Range Comments [...] recurrent systemic embolism. 3.0 - 4.5 DIFFERENTIAL [id number] 10:58:00 Test Item Value Reference Range Comments RBC MORPHOLOGY REQUIRED (test code=RBCM) ABNORMAL POLYCHROMASIA (test code=POLC) FEW NONE HYPOCHROMIA (test code=HYPO) SLIGHT NONE ANISOCYTOSIS (test code=ANISO) SLIGHT NONE MICROCYTOSIS (test code=MICR) FEW NONE PLATELET ESTIMATE (test code=PLTEST) ADEQUATE ADEQUATE PLATELET MORPHOLOGY (test code=PLTMORPH) NORMAL NORMAL HGB [id number] 10:58:00 Test Item Value Reference Range Comments HEMOGLOBIN (test code=HGB) 6.0 G/DL 11.2-14.9 CALLED TO Sonia BABB HGB=6.0 & READBACK ON 04/05/18 AT 1016 BY Wander Wu HEMATOCRIT (test code=HCT) 19.4 % 33.2-43.5 CALLED TO Sonia BABB HCT=19.4& READBACK ON 04/05/18 AT 1019 BY Wander Wu DIFFERENTIAL [id number] 10:19:00 Test Item Value Reference Range Comments RBC MORPHOLOGY REQUIRED (test code=RBCM) PLATELET ESTIMATE (test code=PLTEST) ADEQUATE PLATELET MORPHOLOGY (test code=PLTMORPH) NORMAL HGB [id number] 10:19:00 Test Item Value Reference Range Comments HEMOGLOBIN (test code=HGB) 6.0 G/DL 11.2-14.9 CALLED TO Sonia BABB HGB=6.0 & READBACK ON 04/05/18 AT 1016 BY Wander Wu HEMATOCRIT (test code=HCT) 19.4 % 33.2-43.5 CALLED TO Sonia BABB HCT=19.4& READBACK ON 04/05/18 AT 1019 BY Wander Wu DIFFERENTIAL [id number] 10:19:00 Test Item Value Reference Range Comments RBC MORPHOLOGY REQUIRED (test code=RBCM) PLATELET ESTIMATE (test code=PLTEST) ADEQUATE PLATELET MORPHOLOGY (test code=PLTMORPH) NORMAL HGB [id number] 10:19:00 Test Item Value Reference Range Comments HEMOGLOBIN (test code=HGB) 6.0 G/DL 11.2-14.9 CALLED TO Sonia BABB HGB=6.0 & READBACK ON 04/05/18 AT 1016 BY Wander Wu HEMATOCRIT (test code=HCT) 19.4 % 33.2-43.5 CALLED TO Sonia BABB HCT=19.4& READBACK ON 04/05/18 AT 1019 BY Wander Wu AB HEPATITIS B [id number] 09:17:00 Test Item Value Reference Range Comments AB HEPATITIS B SURFACE (test POSITIVE code=HBSAB) CLINICAL INTERPRETATION OF IMMUNE STATUS NEGATIVE: Inconsistent with immunity to HBV infection, less than 5.0 mIU/mL POSITIVE: Consistent with immunity to HBV infection, greater than 10.0 mIU/mL * HEPATITIS B SURF AB, [id number] 09:17:00 Test Item Value Reference Range Comments [...] HBV infection.~~~~~~~~~~~~~~~~~~ ~~~~~~~~~~~~~~~~~~~~~~~~~~~~ ~~~~~~~~~~~~~~ AG HEPATITIS B [id number] 09:17:00 Test Item Value Reference Range Comments AG HEPATITIS B SURFACE (test code=HBSAG) NEGATIVE NONREACTIVE AB HEPATITIS B [id number] 09:05:00 Test Item Value Reference Range Comments AB HEPATITIS B SURFACE (test code=HBSAB) HEPATITIS B SURF AB, [id number] 09:05:00 Test Item Value Reference Range Comments HEPATITIS B SURF AB, QUANT (test code=HBSABQ) mIU/mL AG HEPATITIS B [id number] 09:05:00 Test Item Value Reference Range Comments AG HEPATITIS B SURFACE (test code=HBSAG) NEGATIVE NONREACTIVE PROTHROMBIN [id number] 07:47:00 Test Item Value Reference Range Comments [...] systemic embolism. 3.0 - 4.5 CBC W/AUTO [id number] 06:13:00 Test Item Value Reference Range Comments [...] (test 0.0 K/mm3 0.0-0.1 code=NRBC#) BASIC METABOLIC [id number] 04:43:00 Test Item Value Reference Range Comments [...] (test code=CA) 8.4 MG/DL 8.4-10.2 B-TYPE NATRIURETIC [id number] 03:33:00 Test Item Value Reference Range Comments B-TYPE NATRIURETIC PEPTIDE (test code=BNP) > 5000.0 PG/ML 0-100 DIFFERENTIAL [id number] 03:28:00 Test Item Value Reference Range Comments RBC MORPHOLOGY REQUIRED (test code=RBCM) ABNORMAL POLYCHROMASIA (test code=POLC) FEW NONE HYPOCHROMIA (test code=HYPO) SLIGHT NONE POIKILOCYTOSIS (test code=POIK) FEW NONE ANISOCYTOSIS (test code=ANISO) SLIGHT NONE MICROCYTOSIS (test code=MICR) FEW NONE PLATELET ESTIMATE (test code=PLTEST) ADEQUATE ADEQUATE PLATELET MORPHOLOGY (test code=PLTMORPH) NORMAL HGB [id number] 03:28:00 Test Item Value Reference Range Comments HEMOGLOBIN (test code=HGB) 5.6 G/DL 11.2-14.9 CALLED TO STANFORD Fuentes RN & READBACK ON 04/05/18 AT 0253 BY Gordo Nolan HEMATOCRIT (test code=HCT) 18.3 % 33.2-43.5 CALLED TO STANFORD Fuentes RN & READBACK ON 04/05/18 AT 0253 BY Gordo Nolan DIFFERENTIAL [id number] 02:54:00 Test Item Value Reference Range Comments RBC MORPHOLOGY REQUIRED (test code=RBCM) PLATELET ESTIMATE (test code=PLTEST) ADEQUATE PLATELET MORPHOLOGY (test code=PLTMORPH) NORMAL HGB [id number] 02:54:00 Test Item Value Reference Range Comments HEMOGLOBIN (test code=HGB) 5.6 G/DL 11.2-14.9 CALLED TO STANFORD Fuentes RN & READBACK ON 04/05/18 AT 0253 BY Gordo Nolan HEMATOCRIT (test code=HCT) 18.3 % 33.2-43.5 CALLED TO STANFORD Fuentes RN & READBACK ON 04/05/18 AT 0253 BY Gordo Nolan DIFFERENTIAL [id number] 02:54:00 Test Item Value Reference Range Comments RBC MORPHOLOGY REQUIRED (test code=RBCM) PLATELET ESTIMATE (test code=PLTEST) ADEQUATE PLATELET MORPHOLOGY (test code=PLTMORPH) NORMAL HGB [id number] 02:54:00 Test Item Value Reference Range Comments HEMOGLOBIN (test code=HGB) 5.6 G/DL 11.2-14.9 CALLED TO STANFORD Fuentes RN & READBACK ON 04/05/18 AT 0253 BY Gordo Nolan HEMATOCRIT (test code=HCT) 18.3 % 33.2-43.5 CALLED TO STANFORD Fuentes RN & READBACK ON 04/05/18 AT 025 BY Gordo Nolan CBC W/AUTO [id number] 23:36:00 Test Item Value Reference Range Comments [...] # (test 0.0 K/mm3 0.0-0.1 code=NRBC#) DIFFERENTIAL [id number] 23:36:00 Test Item Value Reference Range Comments RBC MORPHOLOGY REQUIRED (test code=RBCM) ABNORMAL HYPOCHROMIA (test code=HYPO) SLIGHT NONE POIKILOCYTOSIS (test code=POIK) FEW NONE ANISOCYTOSIS (test code=ANISO) SLIGHT NONE MICROCYTOSIS (test code=MICR) FEW NONE TARGET CELLS (test code=TGT) FEW NONE TEAR DROP CELLS (test code=TEAR) FEW NONE PLATELET ESTIMATE (test code=PLTEST) ADEQUATE ADEQUATE PLATELET MORPHOLOGY (test code=PLTMORPH) NORMAL NORMAL PROTHROMBIN [id number] 22:40:00 Test Item Value Reference Range Comments [...] systemic embolism. 3.0 - 4.5 BASIC METABOLIC [id number] 22:38:00 Test Item Value Reference Range Comments [...] (test code=CA) 8.6 MG/DL 8.4-10.2 HEPATIC FUNCTION [id number] 22:38:00 Test Item Value Reference Range Comments TOTAL PROTEIN (test code=PROT) 5.1 G/DL 6.3-8.2 ALBUMIN (test code=ALB) 2.9 G/DL 3.5-5.0 BILIRUBIN TOTAL (test code=BILT) 0.5 MG/DL 0.2-1.3 BILIRUBIN DIRECT (test code=BILD) 0.0 MG/DL 0.0-0.3 SGOT/AST (test code=AST) 42 UNITS/L 14-36 SGPT/ALT (test code=ALT) 43 UNITS/L 9-52 ALKALINE PHOSPHATASE (test code=ALKP) 78 UNITS/L 38-126 [id number] 22:38:00 Test Item Value Reference Range Comments LIPASE (test code=LIP) 308 UNITS/L 23-300 CBC W/AUTO [id number] 22:36:00 Test Item Value Reference Range Comments WHITE BLOOD CELL (test 7.5 K/MM3 3.8-9.8 code=WBC) RED BLOOD CELL (test code=RBC) 2.23 M/MM3 3.58-4.97 HEMOGLOBIN (test code=HGB) 6.1 G/DL 11.2-14.9 CALLED TO BLAYNE & READBACK ON 04/04/18 AT 2229 BY Godro Nolan HEMATOCRIT (test code=HCT) 20.4 % 33.2-43.5 [...] # (test 0.0 K/mm3 0.0-0.1 code=NRBC#) DIFFERENTIAL [id number] 22:36:00 Test Item Value Reference Range Comments RBC MORPHOLOGY REQUIRED (test code=RBCM) PLATELET ESTIMATE (test code=PLTEST) ADEQUATE PLATELET MORPHOLOGY (test code=PLTMORPH) NORMAL CBC W/AUTO [id number] 22:36:00 Test Item Value Reference Range Comments [...] # (test 0.0 K/mm3 0.0-0.1 code=NRBC#) DIFFERENTIAL [id number] 22:36:00 Test Item Value Reference Range Comments RBC MORPHOLOGY REQUIRED (test code=RBCM) PLATELET ESTIMATE (test code=PLTEST) ADEQUATE PLATELET MORPHOLOGY (test code=PLTMORPH) NORMAL - XR CHEST [id number] 22:34:00 Patient Name: DALJIT JOHNSON Unit No: [id number] EXAMS: CPT CODE: [id number] XR CHEST 1V 21824 AFTER HOURS SERVICE ON: 04/04/2018 10:33 PM [...] Olive Padilla (RT) Transcrpt Date/Tm/Trnsp: 04/04/2018 (2233) [email or web address] Orig Print D/T: S: ([id number])[facility] NAME: DALJIT JOHNSON [id number] [address] PHYS: ROSAURA - [place] [address] : 3AGE: 88 SEX: F LOC: [facility] PHONE #: [phone] EXAM DATE: 04/04/2018 STATUS: REG ER FAX #: [phone] RADIOLOGY NO: PAGE 1 Signed Report
[2018-06-24] MEDS ORDERED: ALBUTEROL 2.5 MG/3 ML NEB SOL ONE ×2 (05:01→09:17)
[2018-06-24] MEDS ORDERED: METHYLPREDNISOLONE 125 MG INJ ONE (05:01)
[2018-06-24] MEDS ORDERED: IPRATROPIUM BROM 0.5MG/2.5ML ONE ×2 (05:01→09:17)
[2018-06-24 05:02] LABS: Absolute Lymphocytes (CBC) 0.5 K/uL (0.7-4.9); Absolute Monocytes 0.6 K/uL (0.1-1.3); Absolute Neutrophil 4.7 K/uL (1.8-8.0); Basophils % 0.8 % (0-1.3); Eosinophils % 3.3 % (0-4.4); Hematocrit 34.7 % (36.0-45.0); Lymphocytes % 8.5 % (15.3-44.8); MPV 8.3 fL (7.6-11.3); Monocytes % 9.6 % (3.3-12.3); RBC Red Blood Cell Count 3.72 M/uL (3.86-4.86)
[2018-06-24 05:05] LABS: Protime INR 0.96
[2018-06-24 05:28] LABS: Arterial Blood Carboxyhemoglob 1.5 % (0-1.5); Blood Gas Oxyhemoglobin 95.9 % (94-97); Blood O2 Saturation 98.1 % (92-98.5)
[2018-06-24 05:33] LABS: Albumin 2.8 g/dL (3.4-5.0); Bilirubin Direct 0.1 mg/dL (0-0.2); Bilirubin Total 0.4 mg/dL (0.2-1.0); Magnesium 2.4 mg/dL (1.8-2.4); Potassium 4.8 mmol/L (3.5-5.1); Protein, Total 5.5 g/dL (6.4-8.2); Troponin (Emerg Dept Use Only) 0.12 ng/mL (0.0-0.045)
--- NOTE | 2018-06-24 05:51 | EDPHYS ---
Physician Documentation [facility] Name: Bárbara Thakkar Age: 88 yrs Sex: Female : 1930 Arrival Date: 06/24/2018 Time: 03:55 Bed 20 Private MD: Abhinav Curiel H ED Physician Brendan Arguello HPI: 06/24 04:36 This 88 yrs old Female presents to ER via EMS with complaints of Shortness Of pkl Breath. 04:36 The patient has shortness of breath at rest. Onset: The symptoms/episode began/occurred pkl yesterday. Associated signs and symptoms: Pertinent positives: productive cough. The patient has experienced similar episodes in the past, several times. Historical: - Allergies: 04:05 acetylcysteine; jd3 04:05 Ciprofloxacin; jd3 04:05 Iodinated Contrast Media - IV Dye; jd3 04:05 PENICILLINS; jd3 - Home Meds: 04:05 aspirin 81 mg Oral chew [Active]; pravastatin 80 mg oral tab [Active]; amiodarone 200 jd3 mg Oral tab [Active]; carvedilol 3.125 mg oral tab [Active]; Anoro Ellipta inhalation inhalation [Active]; ipratropium-albuterol 0.5 mg-3 mg(2.5 mg base)/3 mL Inhl nebu [Active]; - PMHx: 04:05 COPD; High Cholesterol; Hypertension; ESRD; Pacemaker; Hemodialysis-MWF; jd3 - PSHx: 04:05 Dialysis catheter to left upper chest; Pacemaker; jd3 - Immunization history:: Adult Immunizations not up to date. - Social history:: Smoking status: Patient/guardian denies using tobacco. - Ebola Screening: : Patient negative for fever greater than or equal to 101.5 degrees Fahrenheit, and additional compatible Ebola Virus Disease symptoms. ROS: 04:36 Eyes: Negative for injury, pain, redness, and discharge, ENT: Negative for injury, pkl pain, and discharge, Neck: Negative for injury, pain, and swelling, Cardiovascular: Negative for chest pain, palpitations, and edema. 04:36 Respiratory: Positive for cough, with clear sputum, wheezing. 04:36 Abdomen/GI: Negative for abdominal pain, nausea, vomiting, and diarrhea. 04:36 Back: Negative for acute changes. 04:36 : Negative for urinary symptoms. 04:36 MS/extremity: Negative for acute changes. 04:36 Skin: Negative for rash. 04:36 Neuro: Negative for altered mental status. Exam: 04:36 Head/Face: Normocephalic, atraumatic. Eyes: Pupils equal round and reactive to light, pkl extra-ocular motions intact. Lids and lashes normal. Conjunctiva and sclera are non-icteric and not injected. Cornea within normal limits. Periorbital areas with no swelling, redness, or edema. ENT: Nares patent. No nasal discharge, no septal abnormalities noted. Tympanic membranes are normal and external auditory canals are clear. Oropharynx with no redness, swelling, or masses, exudates, or evidence of obstruction, uvula midline. Mucous membranes moist. Neck: Trachea midline, no thyromegaly or masses palpated, and no cervical lymphadenopathy. Supple, full range of motion without nuchal rigidity, or vertebral point tenderness. No Meningismus. Chest/axilla: Normal chest wall appearance and motion. Nontender with no deformity. No lesions are appreciated. Cardiovascular: Regular rate and rhythm with a normal S1 and S2. No gallops, murmurs, or rubs. Normal PMI, no JVD. No pulse deficits. 04:36 Respiratory: mild respiratory distress is noted, Respirations: labored breathing, that is mild, Breath sounds: bronchial sounds, that are mild, rhonchi, that are moderate, are scattered. 04:36 Abdomen/GI: Bowel sounds: normal, Palpation: abdomen is soft and non-tender, in all quadrants. 04:36 Back: Exam negative for acute changes. 04:36 : Exam negative for acute changes. 04:36 Musculoskeletal/extremity: Exam is negative for acute changes. 04:36 Skin: Exam negative for rash. 04:36 Neuro: Orientation: is normal, Mentation: is normal, Cranial nerves: grossly normal, Motor: is normal. Vital Signs: 04:05 BP 141 / 66; Pulse 60; Resp 20 S; Temp 97.8(O); Pulse Ox 100% on 2 lpm NC; Weight 46.72 jd3 kg (R); Height 4 ft. 11 in. (149.86 cm) (R); Pain 8/10; 05:01 BP 159 / 71; Pulse 60; Resp 22 S; Pulse Ox 100% on Nebulizer Mask; jd3 06:00 BP 150 / 55; Pulse 60; Resp 18 S; Pulse Ox 100% on 2 lpm NC; jd3 06:30 BP 153 / 67; Pulse 60; Resp 19 S; Pulse Ox 100% on 2 lpm NC; jd3 07:00 BP 161 / 66; Pulse 60; Resp 20; Temp 98; Pulse Ox 99% ; bp 08:00 BP 154 / 59; Pulse 60; Resp 19; Temp 97.9; Pulse Ox 100% ; bp 09:00 BP 168 / 71; Pulse 60; Resp 21; Pulse Ox 98% ; bp 04:05 Body Mass Index 20.80 (46.72 kg, 149.86 cm) jd3 MDM: 03:55 Patient medically screened. pkl 05:47 Data reviewed: vital signs, nurses notes, lab test result(s), EKG, radiologic studies, pkl plain films. 06/24 04:35 Order name: Basic Metabolic Panel pkl 06/24 04:35 Order name: CBC with Diff pkl 06/24 04:35 Order name: LFT's pkl 06/24 04:35 Order name: Magnesium pkl 06/24 04:35 Order name: NT PRO-BNP pkl 06/24 04:35 Order name: PT-INR; Complete Time: 05:14 pkl 06/24 04:35 Order name: Troponin (emerg Dept Use Only); Complete Time: 05:38 pkl 06/24 04:35 Order name: D-Dimer; Complete Time: 05:14 pkl 06/24 04:35 Order name: ABG; Complete Time: 05:38 pkl 06/24 04:36 Order name: Basic Metabolic Panel; Complete Time: 05:38 EDMS 06/24 04:36 Order name: CBC with Automated Diff; Complete Time: 05:14 EDMS 06/24 04:36 Order name: Liver (Hepatic) Function; Complete Time: 05:38 EDMS 06/24 04:36 Order name: Magnesium; Complete Time: 05:38 EDMS 06/24 04:36 Order name: NT PRO-BNP; Complete Time: 05:38 EDMS 06/24 04:35 Order name: XRAY Chest (1 view) pkl 06/24 04:35 Order name: EKG; Complete Time: 04:37 pkl 06/24 04:35 Order name: Cardiac monitoring; Complete Time: 04:59 pkl 06/24 04:35 Order name: EKG - Nurse/Tech; Complete Time: 04:59 pkl 06/24 04:35 Order name: IV Saline Lock; Complete Time: 04:59 pkl 06/24 04:35 Order name: Labs collected and sent; Complete Time: 04:59 pkl 06/24 04:35 Order name: O2 Per Protocol; Complete Time: 04:59 pkl 06/24 04:35 Order name: O2 Sat Monitoring; Complete Time: 04:59 pkl 06/24 06:43 Order name: CONS Pharmacy Consult EDSD 06/24 06:43 Order name: CONS Physician Consult EDSD 06/24 06:43 Order name: Renal EDMS Administered Medications: 05:00 Drug: SOLU-Medrol 125 mg Route: IVP; Site: left antecubital; jd3 06:00 Follow up: Response: No adverse reaction jd3 05:00 Drug: Albuterol - atroVENT (3:1) (2.5 mg - 0.5 mg) 3 ml Route: Nebulizer; jd3 06:00 Follow up: Response: No adverse reaction jd3 Disposition: 06/24/18 05:50 Hospitalization ordered by Julio Wilson for Observation. Preliminary diagnosis is Acute dyspnea. COPD exacerbation. Volume overload. Chronic renal disease. Missed dialysis. - Bed requested for Telemetry/MedSurg (observation). - Status is Observation. bp - Condition is Stable. - Problem is new. - Symptoms are unchanged. UTI on Admission? No Signatures: Dispatcher [employer] EDSD Tatianna Frias Pin, MD MD pkl Davies, Jonathon RN RN jAlbert Shah RN RN bp Corrections: (The following items were deleted from the chart) 08:38 05:50 Hospitalization Ordered by Julio Wilson MD for Observation. Preliminary bd diagnosis is Acute dyspnea. COPD exacerbation. Volume overload. Chronic renal disease. Missed dialysis. Bed requested for Telemetry/MedSurg (observation). Status is Observation. Condition is Stable. Problem is new. Symptoms are unchanged. UTI on Admission? No. pkl 09:57 08:38 06/24/2018 05:50 Hospitalization Ordered by Julio Wilson MD for Observation. bp Preliminary diagnosis is Acute dyspnea. COPD exacerbation. Volume overload. Chronic renal disease. Missed dialysis. Bed requested for Telemetry/MedSurg (observation). Status is Observation. Condition is Stable. Problem is new. Symptoms are unchanged. UTI on Admission? No. bd
--- NOTE | 2018-06-24 05:51 | ER ---
Nurse's Notes [facility] Name: Bárbara Thakkar Age: 88 yrs Sex: Female : 1930 Arrival Date: 06/24/2018 Time: 03:55 Bed 20 Private MD: Abhinav Curiel H Diagnosis: Acute dyspnea. COPD exacerbation. Volume overload. Chronic renal disease. Missed dialysis Presentation: 06/24 03:58 Presenting complaint: EMS states: "pt reported that she has had worsening shortness of jd3 breath since 1400 yesterday.". Transition of care: patient was not received from another setting of care. Onset of symptoms was June 23, 2018. Risk Assessment: Do you want to hurt yourself or someone else? Patient reports no desire to harm self or others. Initial Sepsis Screen: Does the patient meet any 2 criteria? No. Patient's initial sepsis screen is negative. Does the patient have a suspected source of infection? No. Patient's initial sepsis screen is negative. Care prior to arrival: IV initiated. 20 GA, in the left antecubital area, Oxygen administered. via nasal cannula. 03:58 Method Of Arrival: EMS: [facility] jd3 03:58 Acuity: CECE 3 jd3 Triage Assessment: 04:08 Respiratory: Onset: The symptoms/episode began/occurred yesterday, the patient has mild jd3 shortness of breath. Historical: - Allergies: 04:05 acetylcysteine; jd3 04:05 Ciprofloxacin; jd3 04:05 Iodinated Contrast Media - IV Dye; jd3 04:05 PENICILLINS; jd3 - Home Meds: 04:05 aspirin 81 mg Oral chew [Active]; pravastatin 80 mg oral tab [Active]; amiodarone 200 jd3 mg Oral tab [Active]; carvedilol 3.125 mg oral tab [Active]; Anoro Ellipta inhalation inhalation [Active]; ipratropium-albuterol 0.5 mg-3 mg(2.5 mg base)/3 mL Inhl nebu [Active]; - PMHx: 04:05 COPD; High Cholesterol; Hypertension; ESRD; Pacemaker; Hemodialysis-MWF; jd3 - PSHx: 04:05 Dialysis catheter to left upper chest; Pacemaker; jd3 - Immunization history:: Adult Immunizations not up to date. - Social history:: Smoking status: Patient/guardian denies using tobacco. - Ebola Screening: : Patient negative for fever greater than or equal to 101.5 degrees Fahrenheit, and additional compatible Ebola Virus Disease symptoms. Screenin:08 Abuse screen: Denies threats or abuse. Nutritional screening: No deficits noted. jd3 Tuberculosis screening: No symptoms or risk factors identified. Fall Risk Ambulatory Aid- None/Bed Rest/Nurse Assist (0 pts). Gait- Weak (10 pts.). Mental Status- Oriented to own ability (0 pts). Total Griffiths Fall Scale indicates No Risk (0-24 pts). Assessment: 04:06 General: Appears uncomfortable, Behavior is calm, cooperative, appropriate for age. jd3 Pain: Complains of pain in back Quality of pain is described as aching. Neuro: Level of Consciousness is awake, alert, obeys commands, Oriented to person, place, time, situation, Appropriate for age. Cardiovascular: Heart tones S1 S2 present Capillary refill < 3 seconds Patient's skin is warm and dry. Rhythm is Respiratory: Reports shortness of breath at rest Airway is patent Respiratory effort is even, unlabored, Respiratory pattern is regular, symmetrical, Breath sounds with wheezes bilaterally. GI: No signs and/or symptoms were reported involving the gastrointestinal system. : No signs and/or symptoms were reported regarding the genitourinary system. EENT: No signs and/or symptoms were reported regarding the EENT system. Derm: Skin is intact, Skin is dry, Skin is normal, Skin temperature is warm. Musculoskeletal: Circulation, motion, and sensation intact. Range of motion: intact in all extremities. 05:00 Reassessment: Patient appears in no apparent distress at this time. Patient and/or jd3 family updated on plan of care and expected duration. Pain level reassessed. Patient is alert, oriented x 3, equal unlabored respirations, skin warm/dry/pink. 05:45 Reassessment: Patient appears in no apparent distress at this time. Patient and/or jd3 family updated on plan of care and expected duration. Pain level reassessed. Patient is alert, oriented x 3, equal unlabored respirations, skin warm/dry/pink. 06:30 Reassessment: Patient appears in no apparent distress at this time. Patient and/or jd3 family updated on plan of care and expected duration. Pain level reassessed. Patient is alert, oriented x 3, equal unlabored respirations, skin warm/dry/pink. 07:00 Reassessment: RECD REPORT FROM MAMIE ARCOS. 88YO WF P/W SOB, H/O COPD. ADMIT IN bp PROCESS. PT SLEEPING, VS STABLE ON MONITOR. 08:00 Reassessment: PT UP IN BED, EATING BREAKFAST. bp 08:55 Reassessment: FIRST ATTEMPT TO CALL REPORT. bp 09:07 Reassessment: SECOND ATTEMPT TO CALL REPORT. bp 09:30 Reassessment: 3RD ATTEMPT TO CALL REPORT. bp Vital Signs: 04:05 BP 141 / 66; Pulse 60; Resp 20 S; Temp 97.8(O); Pulse Ox 100% on 2 lpm NC; Weight 46.72 jd3 kg (R); Height 4 ft. 11 in. (149.86 cm) (R); Pain 8/10; 05:01 BP 159 / 71; Pulse 60; Resp 22 S; Pulse Ox 100% on Nebulizer Mask; jd3 06:00 BP 150 / 55; Pulse 60; Resp 18 S; Pulse Ox 100% on 2 lpm NC; jd3 06:30 BP 153 / 67; Pulse 60; Resp 19 S; Pulse Ox 100% on 2 lpm NC; jd3 07:00 BP 161 / 66; Pulse 60; Resp 20; Temp 98; Pulse Ox 99% ; bp 08:00 BP 154 / 59; Pulse 60; Resp 19; Temp 97.9; Pulse Ox 100% ; bp 09:00 BP 168 / 71; Pulse 60; Resp 21; Pulse Ox 98% ; bp 04:05 Body Mass Index 20.80 (46.72 kg, 149.86 cm) jd3 ED Course: 03:55 Patient arrived in ED. ds1 03:55 Brendan Arguello MD is Attending Physician. pkl 03:58 Brandin Silva, JOSSELYN is Primary Nurse. jd3 04:00 Triage completed. jd3 04:06 Arm band placed on. jd3 04:08 Patient has correct armband on for positive identification. Bed in low position. Call jd3 light in reach. Side rails up X2. 04:09 Abhinav Curiel DO is Private Physician. ds1 04:51 Initial lab(s) drawn, by me, sent to lab. bb 04:55 X-ray completed. Portable x-ray completed in exam room. Patient tolerated procedure kw well. 04:56 XRAY Chest (1 view) In Process Unspecified. EDMS 05:07 Notified ED physician of a critical lab result(s). D-dimer of 2,177. jd3 05:08 Maintain EMS IV. Dressing intact. Good blood return noted. Site clean \\T\\ dry. Gauge \\T\\ abdias 3 site: 20 G left AC. 05:48 Julio Wilson MD is Hospitalizing Provider. pkl 07:08 Primary Nurse role handed off by Brandin Silva, RN bp 07:08 Albert Garvey, JOSSELYN is Primary Nurse. bp 09:44 No provider procedures requiring assistance completed. Patient admitted, IV remains in bp place. Administered Medications: 05:00 Drug: SOLU-Medrol 125 mg Route: IVP; Site: left antecubital; jd3 06:00 Follow up: Response: No adverse reaction jd3 05:00 Drug: Albuterol - atroVENT (3:1) (2.5 mg - 0.5 mg) 3 ml Route: Nebulizer; jd3 06:00 Follow up: Response: No adverse reaction jd3 Outcome: 05:50 Decision to Hospitalize by Provider. pkl 09:43 Admitted to Med/surg accompanied by [facility], via stretcher, room 232, with oxygen, with bp chart, Report called to JUAN C RN 09:43 Condition: stable 09:43 Instructed on the need for admit. 09:57 Patient left the ED. bp Signatures: Dispatcher [employer] EDWV Brendan Arguello MD MD pk Marybel Cisneros ds1 Funmilayo Simpson, RN RN Alexandria Gorman Jonathon, RN RN Albert Yeung, RN RN bp Corrections: (The following items were deleted from the chart) 06:55 04:06 Cardiovascular: Heart tones S1 S2 present Capillary refill < 3 seconds Patient's jd3 skin is warm and dry. jd3 06:57 06:54 Reassessment: Patient appears in no apparent distress at this time. Patient jd3 and/or family updated on plan of care and expected duration. Pain level reassessed. Patient is alert, oriented x 3, equal unlabored respirations, skin warm/dry/pink. jd3 06:57 05:30 Reassessment: Patient appears in no apparent distress at this time. Patient jd3 and/or family updated on plan of care and expected duration. Pain level reassessed. Patient is alert, oriented x 3, equal unlabored respirations, skin warm/dry/pink. jd3
[2018-06-24] MEDS ORDERED: ONDANSETRON 4 MG/2 ML VIAL IV PRN (06:38)
[2018-06-24] MEDS ORDERED: MORPHINE 2 MG/ML SYR IV PRN (06:38)
[2018-06-24] MEDS ORDERED: FUROSEMIDE 40 MG/4 ML VIAL IV ONE (06:38)
--- NOTE | 2018-06-24 07:36 | RAD REPORT ---
EXAM DESCRIPTION: RAD - Chest Single View - 06/24/2018 4:56 am CLINICAL HISTORY: Shortness of breath COMPARISON: April 2018 TECHNIQUE: AP portable chest image was obtained 0452 hours . FINDINGS: Lung volumes are low accentuating baseline fibrotic lung pattern. No focal consolidation. Left-sided dialysis catheter is in place. Right-sided pacemaker still present. Heart size is accentua tsering by shallow inspiration. No pneumothorax is present. Bilateral costophrenic angle blunting matches prior imaging could be pleural scarring or small pleural effusion. No acute bony abnormality seen. No acute aortic findings suspected. IMPRESSION: Chronic interstitial lung pattern accentuated by shallow inspiration. No focal consolidation. Mild interstitial edema or infiltrate can be masked in this setting. Pleural scarring versus small bilateral pleural effusions.
[2018-06-24] MEDS: IPRATROPIUM BROM 0.5MG/2.5ML NEB SCH ×3 (09:05→19:43)
[2018-06-24] MEDS: ALBUTEROL 2.5 MG/3 ML NEB SOL NEB SCH ×3 (09:05→19:43)
[2018-06-24 12:16] VITALS: BMI 22.6
[2018-06-24] MEDS ORDERED: PNEUMOCOCCAL VACCINE 0.5 ML IMVAC ONE (13:00)
[2018-06-24] MEDS: CEFTRIAXONE/SWI 1gm 1 GM/10 ML SYR IV SCH (13:13)
[2018-06-24] MEDS: METHYLPREDNISOLONE 40 MG INJ IV SCH ×2 (13:14→18:05)
[2018-06-24] MEDS ORDERED: NA CHLORIDE 0.9% 1,000 ML IV PRN (15:09)
[2018-06-24] MEDS ORDERED: ALBUMIN HUMAN 25% 50 ML IV SCH (16:00)
--- NOTE | 2018-06-24 16:41 | CON ---
Date of Consultation: 06/24/2018 Consulting Physician: Dr. Wiggins. Reason For Consultation: Elevated BUN and creatinine, fluid over volume. History Of Present Illness: This is a pleasant 88-year-old female, well known to me from the office with significant past medical history of hypertension, coronary artery disease complicated with conge stive heart failure, diastolic dysfunction, AFib, status post ICD COPD; end-stage renal disease, on h emodialysis Saturday, Saturday, Saturday plus extra treatment Saturday. The patient apparently did not do her dialysis yesterday, came with shortness of breath with CHF exacerbation. We have been consult ed to maintain her dialysis. Past Medical History: Include: 1.COPD. 2.Hypertension. 3.AFib. 4.Peripheral vascular disease. 5.Carotid stenosis. 6.Hyperlipidemia. 7.End-stage renal disease. 8.Coronary artery disease complicated with congestive heart failure, status post PTCA, ejection frac tion of 40%. Past Surgical History: Include tonsillectomy, appendectomy, hysterectomy, PermCath placement, bilate ral carpal tunnel. Family History: Positive for diabetes, coronary artery disease. Social History: Ex-smoker. Denied alcohol. Denied drug abuse. Review of Systems: Head and Neck: No red eye. No ear pain. GI: No nausea. No vomiting. : No polyuria. No dysuria. No hematuria. TECHNICAL DATA ANALYST: No vaginal discharge. Respiratory: Has shortness of breath. Cardiovascular: No chest pain. Endocrine: No polydipsia. Skin: No rash. Neuro: Has neuropathy. Musculoskeletal: Generalized fatigue. Physical Examination: Vital Signs: When I saw the patient, blood pressure of 168/71, pulse of 60, afebrile. Chest: Crackles, bilateral base. Heart: S1, S2 regular with systolic murmur. Abdomen: Soft nontender. Extremities: Trace Edema. Neurologic: Alert, oriented x3. No focal. Laboratory Data: WBC 6.1, H and H 10.9/34.7, platelet of 181. Sodium 128, potassium 4.8, bicarb 26, BUN 45, creatinine 4.5, calcium 8.6, phosphorus 3.4, magnesium 2.4. Albumin 2.8. BNP 128,620. Home Medications: Include pravastatin, multivitamin, breathing treatment, carvedilol 25 b.i.d., anitra min C. Current Medications: In the hospital include Solu-Medrol, ceftriaxone and breathing treatment. Assessment And Plan: 1.End-stage renal disease, over volume. I am going to go ahead and arrange for the patient for dial ysis today. We will challenge the patient and we will follow up the patient. 2.Hypertension. We will utilize blood pressure for more ultrafiltration. 3.Anemia of chronic kidney disease. We will resume Epogen. 4.Congestive heart failure, over volume. We will arrange for the dialysis. 5.Chronic obstructive pulmonary disease exacerbation. Continue current treatment. We will follow u p with the primary. The patient will be cleared from the renal standpoint to discharge after dialysis. JESSICA/ADITI Voice ID: [id number] Report ID: [id number]
--- NOTE | 2018-06-24 18:26 | EKG ---
Test Date: 2018-06-24 Test Time: 04:41:47 Silk Finisher: GREGG MEASUREMENT RESULTS: Intervals: Rate: 60 MO: 252 QRSD: 156 QT: 470 QTc: 470 [place]: P: MO: 252 QRS: -38 T: 163 INTERPRETIVE STATEMENTS: Atrial-paced rhythm with prolonged AV conduction Left axis deviation Left bundle branch block Abnormal ECG Compared to ECG 05/06/2018 14:56:49 Left-axis deviation now present Left bundle-branch block now present Sinus rhythm no longer present T-wave abnormality no longer present Possible ischemia no longer present Electronically Signed On 06-24-18 18:23:47 CDT by Andrea Rao
[2018-06-24] MEDS ORDERED: ATORVASTATIN 10 MG TAB PO SCH (21:00)
[2018-06-24] MEDS ORDERED: HOME MED 1 EA UNK (Pravastatin Sodium [Pravachol] 80 MG) PO SCH (21:00)
[2018-06-24] MEDS ORDERED: ASPIRIN EC 81 MG TAB PO SCH (21:00)
[2018-06-24] MEDS ORDERED: CARVEDILOL 25 MG TAB PO SCH (21:00)
[2018-06-24] MEDS: ASCORBIC ACID 500 MG TABLET PO SCH (21:17)
[2018-06-25] MEDS: METHYLPREDNISOLONE 40 MG INJ IV SCH ×4 (00:01→18:00)
[2018-06-25] MEDS: IPRATROPIUM BROM 0.5MG/2.5ML NEB SCH ×3 (01:55→13:49)
[2018-06-25] MEDS: ALBUTEROL 2.5 MG/3 ML NEB SOL NEB SCH ×3 (01:55→13:49)
--- NOTE | 2018-06-25 02:10 | P.HP ---
Certification for Inpatient Patient admitted to: Observation With expected LOS: <2 Midnights Patient will require the following post-hospital care: None Practitioner: I am a practitioner with admitting privileges, knowledge of patient current condition, hospital course, and medical plan of care. Services: Services provided to patient in accordance with Admission requirements found in Title 42 Section 412.3 of the Code of Federal Regulations Patient History Date of Service: 06/24/18 Reason for admission: Shortness of breath History of Present Illness: Patient is an 88-year-old female with history of end-stage renal disease who presents to the hospital with shortness of breath. She appears to be volume overloaded and will need hemodialysis. She missed 1 of her dialysis sessions a couple of days ago. She said it was more anxiety and stress that got her a feeling poorly. Her x-ray does confirm that she has some volume overload. Patient appears to be doing fairly well. Will monitor her on the floor for closer evaluation. Patient will need to be treated aggressively medically at this time. Allergies acetylcysteine [From Mucomyst] Allergy (Mild, Verified 12/14/17 13:50) Shortness of breath Iodinated Contrast- Oral and IV Dye Allergy (Verified 12/14/17 13:50) Itching/Hives/Rash ciprofloxacin Adverse Reaction (Mild, Verified 12/14/17 13:50) muscle spasm Penicillins Adverse Reaction (Mild, Verified 12/14/17 13:50) Itching Home Medications: Carvedilol 25 mg PO BEDTIME 09/06/17 Pravastatin Sodium [Pravachol] 80 mg PO BEDTIME 11/12/17 Ascorbic Acid [Vitamin C] 250 mg PO DAILY 03/18/18 Aspirin [Aspir-Low] 81 mg PO BEDTIME 03/18/18 Multivit-Min/FA/Lycopen/Lutein [Centrum Silver Tablet] 1 each PO BEDTIME Umeclidinium Brm/Vilanterol Tr [Anoro Ellipta 62.5-25 Mcg INH] 1 each IH DAILY 04/28/18 - Past Medical/Surgical History Diabetic: No -: COPD, Oxygen dependent -: HTN -: Atrial fibrillation, Pacemaker -: GERD -: Chronic anemia -: CAD -: PVD -: Carotid arterial disease -: Hyperlipidemia -: CHF, diastolic dysfunction, moderate pulmonary hypertension -: Permanent Pacemaker to upper rt chest-Sep [address] Narvaez -: Cornary stents -: kidney stents and stents to ea leg -: Bilateral lens implants -: Bilateral carpal tunnel repair -: Hysterectomy -: Appendectomy -: Tonsillectomy Psychosocial/ Personal History: She is . Patient gets home dialysis - Family History Mother Medical History: Heart disease, Diabetes Notes: of [place] Sister Medical History: Diabetes - Social History Smoking Status: Former smoker Smoking therapy provided: Yes Patient receptive to therapy: No Alcohol use: No CD- Drugs: No Review of Systems 10-point ROS is otherwise unremarkable Physical Examination - Vital Signs Temperature: 97.4 F Blood Pressure: 157/68 Pulse: 60 Respirations: 20 Pulse Ox (%): 93 - Physical Exam General: Alert, In no apparent distress, Oriented x3 HEENT: Atraumatic, PERRLA, Mucous membr. moist/pink, EOMI, Sclerae nonicteric Neck: Supple, 2+ carotid pulse no bruit, No LAD, Without JVD or thyroid abnormality Respiratory: Clear to auscultation bilaterally, Normal air movement Cardiovascular: Regular rate/rhythm, Normal S1 S2, No murmurs Gastrointestinal: Normal bowel sounds, Hypoactive, Soft and benign, Non- distended, No tenderness Musculoskeletal: No clubbing, No swelling, No tenderness Integumentary: No rashes Neurological: Normal gait, Normal speech, Normal strength at 5/5 x4 extr, Normal tone, Sensation intact, Cranial nerves 3-12 intact, Normal affect Lymphatics: No axilla or inguinal lymphadenopathy - Studies Laboratory Data (last 24 hrs) 06/24/18 04:45: PT 11.4, INR 0.96 06/24/18 04:45: WBC 6.1, Hgb 10.9 L, Hct 34.7 L, Plt Count 181 06/24/18 04:45: Sodium 128 L, Potassium 4.8, BUN 45 H, Creatinine 4.50 H, Glucose 98, Magnesium 2.4, Total Bilirubin 0.4, AST 18, ALT 13, Alkaline Phosphatase 130 H Assessment & Plan - Problems (Diagnosis) (1) Acute diastolic heart failure Onset Date: 06/24/17 Current Visit: No Status: Acute (2) Acute respiratory distress Onset Date: 10/18/17 Current Visit: No Status: Acute (3) Acute respiratory failure Onset Date: 04/24/17 Current Visit: No Status: Acute Qualifiers: (4) COPD exacerbation Onset Date: 10/18/17 Current Visit: No Status: Acute (5) Combined systolic and diastolic heart failure, acute Onset Date: 10/18/17 Current Visit: No Status: Acute (6) Diverticulitis large intestine Onset Date: 03/26/16 Current Visit: No Status: Acute (7) Hypercapnic respiratory failure Current Visit: No Status: Acute Qualifiers: (8) Paroxysmal A-fib Onset Date: 06/24/17 Current Visit: No Status: Acute (9) Pleural effusion Current Visit: No Status: Acute (10) Pneumonia Onset Date: 04/24/17 Current Visit: No Status: Acute (11) Respiratory failure Current Visit: No Status: Acute - Plan 1. Continue with IV antibiotics 2. Awaiting sputum and blood culture 3. Repeat chest x-ray 4. Will proceed with CT scan of the chest to evaluate for postobstructive pneumonia 5. Cardiology consultation; gently diurese; albumin support as well 6. Continue with nebs as needed; continue with IV steroids 7. O2 per protocol 8. Hep-Lock IV 9. Repeat labs including CBC and renal function switched over in the morning in a.m. 10. GI and DVT prophylaxis Discharge Plan: Home Plan to discharge in: 24 Hours - Advance Directives Does patient have a Living Will: No Does patient have a Durable POA for Healthcare: No - Code Status/Comfort Care Code Status Assessed: Yes Code Status: Full Code Critical Care: No Time Spent Managing PTS Care (In Minutes): 45
[2018-06-25] MEDS: CEFTRIAXONE/SWI 1gm 1 GM/10 ML SYR IV SCH (08:31)
[2018-06-25] MEDS: ASCORBIC ACID 500 MG TABLET PO SCH (08:31)
[2018-06-25] MEDS ORDERED: HOME MED 1 EA UNK (Umeclidinium Brm/Vilanterol Tr [Anoro Ellipta 62.5-25 Mcg Inh] 1 EACH) IH SCH (09:00)
[2018-06-25] MEDS ORDERED: ASCORBIC ACID 250 MG PO SCH (09:00)
[2018-06-25 09:49] VITALS: O2SAT 93
[2018-06-25 10:24] VITALS: BP 143/66; TEMP 97.6
--- NOTE | 2018-06-25 12:37 | P.SSS ---
Patient History Date of Service: 06/25/18 Reason for admission: Shortness of breath History of Present Illness: Patient is an 88-year-old female with history of end-stage renal disease who presents to the hospital with shortness of breath. She appears to be volume overloaded and will need hemodialysis. She missed 1 of her dialysis sessions a couple of days ago. She said it was more anxiety and stress that got her a feeling poorly. Her x-ray does confirm that she has some volume overload. Patient appears to be doing fairly well. Will monitor her on the floor for closer evaluation. Patient will need to be treated aggressively medically at this time. Allergies acetylcysteine [From Mucomyst] Allergy (Mild, Verified 12/14/17 13:50) Shortness of breath Iodinated Contrast- Oral and IV Dye Allergy (Verified 12/14/17 13:50) Itching/Hives/Rash ciprofloxacin Adverse Reaction (Mild, Verified 12/14/17 13:50) muscle spasm Penicillins Adverse Reaction (Mild, Verified 12/14/17 13:50) Itching Home medications list reviewed: Yes Home Medications: Carvedilol 25 mg PO BEDTIME 09/06/17 Pravastatin Sodium [Pravachol] 80 mg PO BEDTIME 11/12/17 Ascorbic Acid [Vitamin C] 250 mg PO DAILY 03/18/18 Aspirin [Aspir-Low] 81 mg PO BEDTIME 03/18/18 Multivit-Min/FA/Lycopen/Lutein [Centrum Silver Tablet] 1 each PO BEDTIME Umeclidinium Brm/Vilanterol Tr [Anoro Ellipta 62.5-25 Mcg INH] 1 each IH DAILY 04/28/18 - Past Medical/Surgical History Has patient received pneumonia vaccine in the past: No Diabetic: No -: COPD, Oxygen dependent -: HTN -: Atrial fibrillation, Pacemaker -: GERD -: Chronic anemia -: CAD -: PVD -: Carotid arterial disease -: Hyperlipidemia -: CHF, diastolic dysfunction, moderate pulmonary hypertension -: Permanent Pacemaker to upper rt chest-Sep [address] Narvaez -: Cornary stents -: kidney stents and stents to ea leg -: Bilateral lens implants -: Bilateral carpal tunnel repair -: Hysterectomy -: Appendectomy -: Tonsillectomy Psychosocial/ Personal History: She is . Patient gets home dialysis - Family History Mother -: Heart disease, Diabetes Notes: of [place] Sister -: Diabetes - Social History Smoking Status: Former smoker Alcohol use: No CD- Drugs: No Caffeine use: No Review of Systems 10-point ROS is otherwise unremarkable Physical Examination - Vital Signs Temperature: 97.6 F Blood Pressure: 143/66 Pulse: 60 Respirations: 18 Pulse Ox (%): 100 - Physical Exam General: Alert, In no apparent distress HEENT: Atraumatic, PERRLA, Mucous membr. moist/pink, EOMI, Sclerae nonicteric Neck: Supple, 2+ carotid pulse no bruit, No LAD, Without JVD or thyroid abnormality Respiratory: Clear to auscultation bilaterally, Normal air movement Cardiovascular: Regular rate/rhythm, Normal S1 S2 Gastrointestinal: Normal bowel sounds, No tenderness Musculoskeletal: No tenderness Integumentary: No rashes Neurological: Normal gait, Normal speech, Normal strength at 5/5 x4 extr, Normal tone, Normal affect Lymphatics: No axilla or inguinal lymphadenopathy Treatment Summary: Patient was admitted for shortness of breath, likely secondary to missed dialysis session. Nephrology was consulted. She received her scheduled dialysis session on 06/24/2018. This helped resolve her symptoms. She returned back to baseline. She received her regular dialysis session prior to discharge on 06/25/2018. Prior to discharge, patient was alert oriented x3, in no acute distress and her symptoms had resolved. She was eager and anxious to get out of the hospital as she has multiple things to do tomorrow. He was hemodynamically stable prior to discharge. Otherwise, she remained stable throughout the stay. Her diagnoses/treatment plan were explained to her and, all questions were answered and patient verbalized understanding. She was discharged home in a safe and stable manner. She will continue her regular scheduled dialysis sessions at home. - Disposition Discharge Date: 06/25/18 Disposition: ROUTINE DISCHARGE Condition: GOOD Consultations: Nephrology Patient Discharge Instructions: Please follow up with the primary care physician in 2-3 days. Please continue your scheduled dialysis sessions that you already receive at home. Please follow up with Nephrology in 2 weeks. Please return to the emergency room for worsening symptoms. Diet: Renal Activity: Ad jessica Time Spent Managing Pts Care (In Minutes): 55
--- NOTE | 2018-06-25 21:04 | PN ---
Date of Progress Note: 06/25/2018 Subjective: The patient is doing well. The patient is status post dialysis yesterday. We managed t o remove 2400. Physical Examination: Vital Signs: Blood pressure 143/66, pulse of 60. Chest: Faint crackles bilateral base. Heart: S1, S2. Systolic murmur. Abdomen: Soft, nontender. Extremities: No edema. Current Medications: Include; 1.Vitamin C. 2.Carvedilol 25 b.i.d. 3.Ceftriaxone breathing treatment. 4.Solu-Medrol. 5.Zofran. Laboratory Data: H and H 10.9/34.7. Sodium of 128, potassium 4.8, bicarb 27, BUN 45, creatinine 4.5 , calcium 8.6. Assessment And Plan: 1.End-stage renal disease. We will continue the patient on dialysis back to her schedule today. He r schedule, we will challenge the patient. 2.Hypertension controlled, optimal. We will continue current medication. 3.Hyponatremia. I am going to put her on dialysis. 4.Anemia. Continue Epogen. 5.Congestive heart failure. We will try to establish better volume control with outpatient. JESSICA/ADITI Voice ID: [id number] Report ID: [id number]
== END 2018-06-25 19:05 | disposition home or self-care (01) ==
LOC: ER 03:53 → ERHOLD 06:56 → 2ND 09:46
PROVIDERS: ADMIT Hospitalist; ATTEND Hospitalist
PROC: 5A1D70Z Performance of Urinary Filtration, Intermittent, Less than 6 Hours Per Day (ICD-10-PCS; principal; 2018-06-24)
PROC: 5A1D70Z Performance of Urinary Filtration, Intermittent, Less than 6 Hours Per Day (ICD-10-PCS; 2018-06-25)
DX: I13.2 Hypertensive heart and chronic kidney disease with heart failure and with stage 5 chronic kidney disease, or end stage renal disease (principal); N18.6 End stage renal disease; I50.32 Chronic diastolic (congestive) heart failure; E78.5 Hyperlipidemia, unspecified; D64.9 Anemia, unspecified; I25.10 Atherosclerotic heart disease of native coronary artery without angina pectoris; J44.9 Chronic obstructive pulmonary disease, unspecified; Z99.2 Dependence on renal dialysis; Z95.0 Presence of cardiac pacemaker; Z95.5 Presence of coronary angioplasty implant and graft
CPT/HCPCS: 93005; 85025; 80048; 36415; 83735; 85610; 85379; 80076; 84484 ×2; 83880; 71045; 90935 ×2; 94640 ×2; 82805; 96374; 99285; J1644; J0696 ×2; J2930; J2920 ×5; G0257; G0378 ×2

== ENCOUNTER 2018-07-09 01:17 | Observation (INO) | payer OTHER ==
--- OUTSIDE RECORDS SUMMARY | 2018-07-09 01:22 | XMS REPORT | Clinical Summary ---
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; Alma Delia Pradhan MD Acute on chronic systolic and diastolic heart failure, NYHA class 3 ([facility]); Hannah Lance Mixed hyperlipidemia; MD Geeta Respiratory failure requiring intubation ([facility]); Darryl ESRD (end stage renal disease) ([facility]); MD Tammie Essential hypertension; Atrial fibrillation, rapid ([facility]); Acute respiratory failure with hypoxemia ([facility]); COPD exacerbation ([facility]); AF (paroxysmal atrial fibrillation) ([facility]) 05/06/2018 Telephone Critical Care Silvano Hays [id number] Call Medicine MD Michi after 07/08/2017 Family History Medical History Relation Name Comments [...] 452 ms QTC Calculation(Bazett) 488 ms R Alpha -46 degrees T Alpha 174 degrees Wide QRS rhythm Left bundle [...] 470 ms QTC Calculation(Bazett) 484 ms P Alpha 219 degrees R Alpha -29 degrees T Alpha 154 degrees Unusual P axis, possible ectopic [...] 470 ms QTC Calculation(Bazett) 470 ms R Alpha -27 degrees T Alpha 197 degrees Atrial-paced rhythm Non-specific intra-ventricular conduction [...] 476 ms QTC Calculation(Bazett) 487 ms R Alpha -40 degrees T Alpha 211 degrees Wide QRS rhythm Left axis [...] 484 ms QTC Calculation(Bazett) 495 ms R Alpha -39 degrees T Alpha 212 degrees Wide QRS rhythm Left axis [...] 464 ms QTC Calculation(Bazett) 493 ms P Alpha 79 degrees R Alpha -17 degrees T Alpha 195 degrees Suspect unspecified pacemaker failure Sinus [...] 422 ms QTC Calculation(Bazett) 468 ms R Alpha -3 degrees T Alpha 212 degrees Wide QRS rhythm Non-specific intra-ventricular [...] procedure are in the results section. after 07/08/2017 Results EKG-SCANNED (05/19/2018 1:51 PM CDT) Narrative [...] 452 ms QTC Calculation(Bazett) 488 ms R Alpha -46 degrees T Alpha 174 degrees Sinus rhythm Left bundle branch [...] 452 ms QTC Calculation(Bazett) 488 ms R Alpha -46 degrees T Alpha 174 degrees Sinus rhythm Left bundle branch [...] included. WBC 6.6 3.5 - 10.5 K/L [facility] RBC 3.38 (L) 3.93 - 5.22 M/L [facility] Hemoglobin 10.0 (L) 11.2 - 15.7 GM/DL [facility] Hematocrit 34.6 34.1 - 44.9 % [facility] MCV 102.4 (H) 79.4 - 94.8 fL [facility] MCH 29.6 25.6 - 32.2 pg [facility] MCHC 28.9 (L) 32.2 - 35.5 GM/DL [facility] RDW 19.6 (H) 11.7 - 14.4 % [facility] Platelets 129 (L) 150 - 450 K/CU MM [facility] MPV 11.0 9.4 - 12.3 fL [facility] nRBC 0 0 - 0 /100 WBC [facility] % Neutros 76 % [facility] % Lymphs 10 % [facility] % Monos 8 % [facility] % Eos 6 % [facility] % Baso 1 % [facility] # Neutros 5.04 1.56 - 6.13 K/L [facility] # Lymphs 0.64 (L) 1.18 - 3.74 K/L [facility] # Monos 0.50 (H) 0.24 - 0.36 K/L [facility] # Eos 0.36 0.04 - 0.36 K/L [facility] # Baso 0.03 0.01 - 0.08 K/L [facility] Immature 0 0 - 1 % [facility] Specimen Blood Performing Organization Address City/State/Zipcode Phone Number [address] [address] [phone] CENTER Phosphorus (05/15/2018 5:49 AM CDT)Only the most recent of7 resultswithin the time period is included. Phosphorus 3.2 2.3 - 4.7 mg/dL [facility] Specimen Blood Performing Organization Address City/State/Zipcode Phone Number [address] [address] [phone] CENTER Magnesium (05/15/2018 5:49 AM CDT)Only the most recent of10 resultswithin the time period is included. Magnesium 1.8 1.6 - 2.6 mg/dL [facility] Specimen Blood Performing Organization Address City/[facility]/Zipcode Phone Number [address] [address] [place] Basic Metabolic Panel (05/15/2018 5:49 AM CDT)Only the most recent of9 resultswithin the time period is included. Sodium 138 136 - 145 meq/L [facility] Potassium 3.7 3.5 - 5.1 meq/L [facility] Chloride 103 98 - 107 meq/L [facility] CO2 26 22 - 29 meq/L [facility] BUN 12 7 - 21 mg/dL [facility] Creatinine 2.45 (H) 0.57 - 1.25 mg/dL [facility] Glucose 82 70 - 105 mg/dL [facility] Calcium 8.3 (L) 8.4 - 10.2 mg/dL [facility] EGFR 19Comment: ESTIMATED GFR IS mL/min/1.73 sq m [facility] NOT ACCURATE CREATININE [facility] CENTER CLEARANCE IN PREDICTING GLOMERULAR FILTRATION RATE. ESTIMATED GFR IS NOT APPLICABLE FOR DIALYSIS PATIENTS. Specimen Blood Performing Organization Address [facility] Phone Number [address] [address] [place] Occult blood, stool (05/13/2018 3:20 PM CDT) Occult blood Positive (A) Negative [facility] Specimen Stool Performing Organization Address City/[facility]/Zipcode Phone Number [address] [address] [place] POC-Glucose meter (05/12/2018 10:38 PM CDT)Only the most recent of22 resultswithin the time period is included. POC-Glucose Meter 109Comment: TESTED AT 70 - 110 mg/dL [facility] [address] [place] [address] [place] [address] Specimen Blood Performing Organization Address City/State/Zipcode Phone Number [place] [id number] [place] [address] CENTER HEMODIALYSIS INPATIENT (05/11/2018 3:42 PM CDT) [...] included. Specimen Narrative Performed At FINAL REPORT [facility] AP chest HISTORY: Shortness of breath. COMPARISON: 05/09/2017. IMPRESSION: Endotracheal tube removed. Dialysis catheter and AICD present. Cardiomegaly. Thoracic aortic ectasia. Clear lungs. Signed: Chance Lim MD Report Verified Date/Time:05/11/2018 13:55:01 Reading Location: [facility] C013 Transitional Reading Room Procedure Note Interface, External Ris In - 05/11/2018 1:57 PM CDT FINAL REPORT AP chest HISTORY: Shortness of breath. COMPARISON: 05/09/2017. IMPRESSION: Endotracheal tube removed. Dialysis catheter and AICD present. Cardiomegaly. Thoracic aortic ectasia. Clear lungs. Signed: Chance Lim MD Report Verified Date/Time: 05/11/2018 13:55:01 Reading Location: [facility] C013 Transitional Reading Room Performing Organization Address [...] home thrice weekly under care of Dr. Khan in [facility]. She was admitted for the third [...] risk of oxalate reabsorption. Keo Garibay MD [facility] Nephrology Faculty [employer], Training Program Office : [phone] 05/11/2018 12:05 PM Subjective Still c/o SOB [...] Yes [place] MD Current Hospital Medications: gbrxtyloyd908 mg Oral BID 200 mg at 05/11/18 0948 mg Oral Daily 81 mg at 05/11/18 0949 emudqfvpxmrc032 mg Oral Daily 500 mg at 05/11/18 0949 cefTRIAXone1 g Intravenous Q24H Stopped at 05/11/18 1032 epoetin mannie-epbx3,000 Units Subcutaneous Once per day on Sat 3,000 Units at 05/10/18 2234 dcbdourvqo69 mg Feed Tube Daily 20 mg at 05/11/18 0949 ipratropium0.5 mg Nebulization BID 0.5 mg at 05/10/18 1922 lidocaine1 mL Other - See Admin Instructions Once yurfxjhdv95 mL Other - See Admin Instructions Once polyethylene zrficb77 g Oral Daily 17 g at 05/09/18 1057 mjyhqokksgu15 mg Oral Daily 80 mg at 05/11/18 [...] file Gets together: Not on file Attends jew service: Not on file Active member of [...] BNP 13,553 (H) 0 - 100 pg/mL [facility] Specimen Blood Performing Organization Address City/State/Zipcode Phone Number [facility] [address] [place] [address] CENTER PT/aPTT (05/10/2018 11:06 AM CDT)Only the most recent of6 resultswithin the time period is included. Protime 15.0 (H) 11.7 - 14.7 seconds [facility] INR 1.1 <=5.9 [facility] PTT 41.5 (H) 22.5 - 36.0 seconds [facility] Specimen Blood Narrative Performed At RECOMMENDED COUMADIN/WARFARIN INR THERAPY [facility] RANGES STANDARD DOSE: 2.0 - 3.0 Includes: PROPHYLAXIS for venous thrombosis, systemic embolization; TREATMENT for venous thrombosis and/or pulmonary embolus. HIGH RISK: Target INR is 2.5-3.5 for patients with mechanical heart valves. Performing Organization Address [facility] Phone Number [address] [address] [place] aPTT (05/10/2018 4:34 AM CDT) PTT 28.8 22.5 - 36.0 seconds [facility] Specimen Blood Performing Organization Address [facility] Number [address] [address] [place] Heparin Assay - Unfractionated (05/09/2018 4:45 AM CDT) Anti 10A-Unfractionated 0.16 (L) 0.30 - 0.70 u/ml [facility] Heparin [facility] Specimen Blood Narrative Performed At Recommendations for Monitoring Unfractionated [facility] Heparin Therapeutic Range: 0.3-0.7 u/mL with continuous IV infusion Performing Organization Address [facility] Number [address] [address] [phone] [place] Procalcitonin (05/09/2018 2:20 AM CDT)Only the most recent of2 resultswithin the time period is included. Procalcitonin 0.29 (H) <0.05 ng/mL [facility] Specimen Blood Narrative Performed At SEPSIS RISK (ng/mL) [facility] Low:0.05-0.50 Intermediate: 0.51-2.00 High: >=2.01 Performing Organization Address [facility]/Zipcode Phone Number [facility] [address] [place] [address] [place] CBC (Hemogram only) (05/08/2018 5:34 PM CDT) WBC 6.3 3.5 - 10.5 K/L [facility] RBC 3.12 (L) 3.93 - 5.22 M/L [facility] Hemoglobin 9.1 (L) 11.2 - 15.7 GM/DL [facility] Hematocrit 30.6 (L) 34.1 - 44.9 % [facility] MCV 98.1 (H) 79.4 - 94.8 fL [facility] MCH 29.2 25.6 - 32.2 pg [facility] MCHC 29.7 (L) 32.2 - 35.5 GM/DL [facility] RDW 21.8 (H) 11.7 - 14.4 % [facility] Platelets 147 (L) 150 - 450 K/CU MM [facility] MPV 10.5 9.4 - 12.3 fL [facility] nRBC 0 0 - 0 /100 WBC [facility] Specimen Blood Performing Organization Address City/State/Zipcode Phone Number [facility] [address] [place] [address] [phone] [place] Blood gas, arterial (05/08/2018 9:24 AM CDT)Only the most recent of2 resultswithin the time period is included. pH, Arterial 7.42 7.35 - 7.45 [facility] pCO2, Arterial 39 35 - 45 mmHg [facility] pO2, Arterial 64 (L) 80 - 90 mmHg [facility] O2 Sat, Arterial 92.6 (L) 96.0 - 97.0 % [facility] HCO3, Arterial 25 21 - 29 mmol/L [facility] Base Excess, Arterial 0.6 -2.0 - 3.0 mmol/L [facility] Patient Temperature 37.2 C [facility] FIO2 24.0 % [facility] Specimen Blood, Arterial Performing Organization Address City/[facility] Phone Number [address] [address] [place] Vitamin B12 and Folate (05/08/2018 4:40 AM CDT) Vitamin B12 677 213 - 816 pg/mL [facility] Folate 15.9 >=7.0 ng/mL [facility] Specimen Blood Performing Organization Address [facility] Phone Number [address] [address] [phone] [place] TSH/Free T4 If Indicated (05/08/2018 4:40 AM CDT) TSH 1.73 0.35 - 4.94 uIU/mL [facility] Specimen Blood Performing Organization Address [facility] Phone Number [address] [address] [phone] CENTER Iron, TIBC, % sat. (without ferritin) (05/08/2018 4:40 AM CDT) Iron 29.0 (L) 40.0 - 160.0 ug/dL [facility] TIBC 138 (L) 250 - 450 ug/dL [facility] Iron % Saturation 21 20 - 55 % [facility] Specimen Blood Performing Organization Address [facility] Phone Number [address] [address] [phone] CENTER Troponin I (05/08/2018 4:40 AM CDT)Only the most recent of3 resultswithin the time period is included. Troponin I 0.28 (HH) 0.00 - 0.03 ng/mL [facility] Specimen Blood Narrative Performed At Troponin I (TnI) levels must be interpreted [facility] in the context of the presenting symptoms [...] disease, and persistent tachyarrhythmia. Performing Organization Address City/[facility] Phone Number [address] [address] [phone] [place] Ferritin (05/08/2018 4:40 AM CDT) Ferritin 577 (H) 5 - 275 ng/mL [facility] Specimen Blood Performing Organization Address [facility] Phone Number [address] [address] [place] Lipid panel (05/08/2018 4:40 AM CDT) Triglycerides 77 mg/dL [facility] Cholesterol 93 mg/dL [facility] HDL 42 mg/dL [facility] LDL Calculated 36 mg/dL [facility] Specimen Blood Narrative Performed At Triglyceride Reference Range: [facility] Low Risk <150 Ebpoicvdpn687-331 High Risk 200-499 Very High Risk>=500 Cholesterol Reference Range: Low Risk <200 Kcubxyrxei865-506 High Risk>240 HDL Cholesterol Reference Range: Low Risk >=60 High Risk <40 LDL Cholesterol Reference Range: Optimal<100 Near Jmpyqyr305-429 Pevlwrblaj458-695 Vosx663-489 Very High >=190 Performing Organization Address [facility] Phone Number [address] [address] [phone] [place] ECHOCARDIOGRAM REPORT - SCAN (05/07/2018 9:10 PM CDT) Narrative Performed At Hemoglobin and hematocrit (05/07/2018 6:42 PM CDT) Hemoglobin 9.1 (L) 11.2 - 15.7 GM/DL [facility] Hematocrit 29.7 (L) 34.1 - 44.9 % [facility] Specimen Blood Performing Organization Address City/[facility]/Zipcode Phone Number [facility] [address] [place] [address] CENTER HEMODIALYSIS INPATIENT (05/07/2018 5:38 PM CDT) Narrative Performed At Keo Garibay MD 05/07/20185:39 PM 05/07/2018 I have personally seen and examined Daljit Johnson on dialysis Indication : ESRD Prescription: F160, 3-4 hrs, 2.0K, 2.5 Ca, UF 3L Reason for exam: BP fluctuation & adjust dry weight Tolerating dialysis ok Awake, alert, intubated, follows all commands. Pale appearance. Access: tunneled dialysis catheter. Keo Garibay MD Office [phone] 05/07/2018 5:38 PM Hepatitis B surface antigen (05/07/2018 3:29 PM CDT) hepatitis B Surface Ag NON-REACTIVE Nonreactive [facility] Specimen Blood Performing Organization Address City/[facility]/Zipcode Phone Number [address] [address] [phone] [place] 2D Echo W/Doppler(CW/PW/Color) (05/07/2018 3:06 PM CDT) Ejection Fraction [facility] Specimen Narrative Performed At Transthoracic Echocardiography Report (TTE) 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 Phone Number [facility] E[facility] HEARTLAB MKCKESSON [facility] Blood gas, venous (05/07/2018 9:13 AM CDT) pH, Riky 7.41 7.32 - 7.42 [facility] pCO2, Riky 41 41 - 51 mmHg [facility] pO2, Riky 26 25 - 40 mmHg [facility] O2 Sat, Riky 47.9 40.0 - 70.0 % [facility] HCO3, Riky 25 21 - 29 mmol/L [facility] Base Excess, Riky 0.4 -2.0 - 3.0 mmol/L [facility] Patient Temperature 37.0 C [facility] FIO2 30.0 % [facility] Specimen Blood Performing Organization Address City/[facility]/Zipcode Phone Number [facility] [address] [place] [address] CENTER Lactic acid, venous (05/07/2018 5:41 AM CDT) Lactate, Venous 0.6Comment: Specimen 0.5 - 2.2 mmol/L [facility] slightly hemolyzed [facility] Specimen Blood Performing Organization Address City/State/[facility] Phone Number [facility] [address] [place] [address] [phone] [place] Vancomycin level, random (05/07/2018 5:41 AM CDT) Vancomycin Rm 21.7 ug/mL [facility] Specimen Blood Narrative Performed At Reference Range: No Normals [facility] Performing Organization Address City/[facility] Phone Number [address] [address] [phone] [place] RESPIRATORY PANEL [facility] (05/06/2018 11:45 PM CDT) Human Metapneumovirus Not detected Not detected, [facility] Rhinovirus Not detected Not detected, [facility] Influenza A Not detected Not detected, [facility] INFLUENZA A (NO SUBTYPE) Not detected, [facility] Influenza A subtype H1 Not detected, [facility] Influenza A Subtype H3 Not detected, [facility] Influenza A Subtype H1-2009 Not detected, [facility] Influenza B Not detected Not detected, [facility] Respiratory Syncytial Virus Not detected Not detected, [facility] Parainfluenza Virus 1 Not detected Not detected, [facility] Parainfluenza Virus 2 Not detected Not detected, [facility] Parainfluenza virus 3 Not detected Not detected, [facility] Parainfluenza Virus 4 Not detected Not detected, [facility] Adenovirus Not detected Not detected, [facility] Coronavirus 229E Not detected Not detected, [facility] Coronavirus HKU1 Not detected Not detected, [facility] Coronavirus NL63 Not detected Not detected, [facility] Coronavirus OC43 Not detected Not detected, [facility] Bordetella Pertussis Not detected Not detected, [facility] Chlamydophila Pneumoniae Not detected Not detected, [facility] Mycoplasma Pneumoniae Not detected Not detected, [facility] Specimen Nasopharyngeal Narrative Performed At Other viruses and bacteria not targeted by [facility] this PCR panel cannot be excluded; therefore clinical correlation and follow up of serology, culture results, and other molecular studies is required. The results are not intended to be used as the sole means for clinical diagnosis or patient management decisions. This sample was tested at the [facility] using the [employer]ktelArray Respiratory Panel. It is FDA cleared and has been verified and approved by the [facility] for clinical use on nasal swab specimens. It is not FDA-cleared for use on bronchial wash/lavage samples. However, for this sample type, validation was performed and test characteristics were determined and approved, by [facility] for clinical use under the Clinical Laboratory Improvement Amendments (CLIA) of 1988 requirements. Therefore, FDA clearance is not required.This laboratory is CLIA-certified and [employer] (CAP)-accredited to perform high complexity testing. Performing Organization Address City/State/Zipcode Phone Number [place] [phone] [place] [address] [place] Blood Culture - Routine (Left Venipuncture) (05/06/2018 11:27 PM CDT) Result No growth in 5 days [facility] Specimen Blood Performing Organization Address City/[facility]/Zipcode Phone Number [place] [phone] [place] [address] [place] Sputum Culture + Gram Stain (05/06/2018 11:20 PM CDT) Result METHICILLIN RESISTANT [facility] STAPHYLOCOCCUS AUREUS (A) [facility] [place] Gram Stain Result <1+ White blood cells seen [facility] Gram Stain Result 0-5 epithelial cells [facility] Gram Stain Result 2+ gram positive cocci in [facility] chains and pairs [facility] Specimen Sputum Narrative Performed At 2+ Normal respiratory baldev present [facility] Organism Antibiotic Method Susceptibility Methicillin resistant Clindamycin [...] aureus Performing Organization Address City/State/Zipcode Phone Number [address] [address] [place] XR abdomen / KUB 1 view (05/06/2018 11:10 PM CDT) Specimen Narrative Performed At FINAL REPORT [facility] History: Intubation. FINDINGS: No comparisons. Single AP [...] MD Report Verified Date/Time:05/06/2018 23:28:30 Reading Location: [facility] Diagnostic Imaging Reading Room - [place] [id number] Procedure Note Interface, External Ris In - [...] Report Verified Date/Time: 05/06/2018 23:28:30 Reading Location: [facility] Diagnostic Imaging Reading Room - [place] [id number] Performing Organization Address City/State/Zipcode Phone Number [facility] Urinalysis w/Microscopic + Reflex to Culture (05/06/2018 10:42 PM CDT) Color, UA Red [facility] Clarity, UA Cloudy [facility] Specific [place], UA 1.015 1.001 - 1.035 [facility] pH, UA 5.0 5.0 - 8.0 [facility] Protein, UA 70 mg/dL (A) Negative [facility] Glucose, UA Negative Negative [facility] Ketones, UA Negative Negative [facility] Bilirubin, UA Negative Negative [facility] Blood, UA Large (A) Negative [facility] Nitrite, UA Negative Negative [facility] Leukocytes, UA Moderate (A) Negative [facility] Urobilinogen, UA 0.2 0.2 - 1.0 mg/dL [facility] RBC, UA 4,889 /HPF [facility] WBC, UA 206 /HPF [facility] Bacteria, UA Moderate [facility] Squam Epithel, UA 11 /HPF [facility] Specimen Source [facility] Specimen Urine Performing Organization Address City/State/Zipcode Phone Number [facility] [address] [place] [address] CENTER Urine culture (05/06/2018 10:42 PM CDT) Result ENTEROBACTER CLOACAE COMPLEX (A) [facility] Specimen Urine Organism Antibiotic Method Susceptibility Enterobacter [...] Sulfamethoxazole <=20: Susceptible complex Performing Organization Address [facility] Phone Number [address] [address] [place] Oxygen saturation, measured (05/06/2018 10:34 PM CDT) O2 Saturation (Measured) 70.8 % [facility] Specimen Blood Performing Organization Address [facility] Phone Number [address] [address] [place] Lactic Acid, Arterial (05/06/2018 10:34 PM CDT) Lactate, Art 0.8 0.5 - 2.2 mmol/L [facility] Specimen Blood, Arterial Performing Organization Address [facility] [place] Phone Number [address] [address] C[facility] Comprehensive metabolic panel (05/06/2018 10:34 PM CDT) Protein, Total 4.9 (L) 6.0 - 8.3 gm/dL [facility] Albumin 3.1 (L) 3.5 - 5.0 g/dL [facility] Alkaline Phosphatase 132 40 - 150 U/L [facility] Total Bilirubin 0.5 0.2 - 1.2 mg/dL [facility] Sodium 130 (L) 136 - 145 meq/L [facility] Potassium 4.4 3.5 - 5.1 meq/L [facility] Chloride 96 (L) 98 - 107 meq/L [facility] CO2 24 22 - 29 meq/L [facility] BUN 13 7 - 21 mg/dL [facility] Creatinine 4.33 (H) 0.57 - 1.25 mg/dL [facility] Glucose 85 70 - 105 mg/dL [facility] Calcium 8.8 8.4 - 10.2 mg/dL [facility] AST 27 5 - 34 U/L [facility] ALT 25 6 - 55 U/L [facility] EGFR 10Comment: ESTIMATED GFR mL/min/1.[address] [facility] IS NOT ACCURATE [facility] CREATININE CLEARANCE IN PREDICTING GLOMERULAR FILTRATION RATE. ESTIMATED GFR IS NOT APPLICABLE FOR DIALYSIS PATIENTS. Specimen Blood Performing Organization Address City/State/Zipcode Phone Number [facility] [address] [place] [id number] [facility]ENTER after 07/08/2017 Insurance Payer Benefit Plan / Group Subscriber ID Type Phone Address MEDICARE MEDICARE A B xxxxxxxxxxx Medicare AETNA - [place] CARE AETNA INDEMNITY NON CONTR xxxxxxxxx Comm Advance Directives For more information, please contact:[address] [phone] Code Status Date Activated Date Inactivated Comments [...]
--- OUTSIDE RECORDS SUMMARY | 2018-07-09 01:28 | XMS REPORT ---
:1930 [facility] Address [address] [place] [address] Care Team Providers Name Role Phone MARY [...] Comments SODIUM (BEAKER) (test 138 meq/L 136-145 qpfv=675) POTASSIUM (BEAKER) (test 3.7 meq/L 3.5-5.1 hbyc=928) CHLORIDE (BEAKER) (test 103 meq/L 98-107 gvdn=976) CO2 (BEAKER) (test qjlc=746) 26 meq/L 22-29 BLOOD UREA NITROGEN (BEAKER) 12 mg/dL 7-21 (test dnes=384) CREATININE (BEAKER) (test 2.45 mg/dL 0.57-1.25 ufvu=512) GLUCOSE RANDOM (BEAKER) 82 mg/dL 70-105 (test odyo=776) CALCIUM (BEAKER) (test 8.3 mg/dL 8.4-10.2 avdg=119) EGFR (BEAKER) (test 19 mL/min/1.73 sq m ESTIMATED GFR IS NOT uaup=0694) ACCURATE CREATININE CLEARANCE IN PREDICTING GLOMERULAR FILTRATION RATE. ESTIMATED GFR IS NOT APPLICABLE FOR DIALYSIS PATIENTS. [id number] 07:16:00 Test Item Value Reference Range Comments PHOSPHORUS (BEAKER) (test ugcy=678) 3.2 mg/dL 2.3-4.7 [id number] 07:16:00 Test Item Value Reference Range Comments MAGNESIUM (BEAKER) (test kemo=610) 1.8 mg/dL 1.6-2.6 CBC W/PLT COUNT & AUTO [id number] 06:23:00 Test Item Value Reference Range Comments WHITE BLOOD CELL COUNT (BEAKER) (test tzdj=030) 6.6 K/ L 3.5-10.5 RED BLOOD CELL COUNT (BEAKER) (test kmla=669) 3.38 M/ L 3.93-5.22 HEMOGLOBIN (BEAKER) (test roza=701) 10.0 GM/DL 11.2-15.7 HEMATOCRIT (BEAKER) (test zfte=356) 34.6 % 34.1-44.9 MEAN CORPUSCULAR VOLUME (BEAKER) (test lsjs=600) 102.4 fL 79.4-94.8 MEAN CORPUSCULAR HEMOGLOBIN (BEAKER) (test 29.6 pg 25.6-32.2 gnxo=092) MEAN CORPUSCULAR HEMOGLOBIN CONC (BEAKER) (test 28.9 GM/DL 32.2-35.5 ttaq=991) RED CELL DISTRIBUTION WIDTH (BEAKER) (test 19.6 % 11.7-14.4 rcyt=517) PLATELET COUNT (BEAKER) (test xyrk=169) 129 K/CU MM 150-450 MEAN PLATELET VOLUME (BEAKER) (test nonn=564) 11.0 fL 9.4-12.3 NUCLEATED RED BLOOD CELLS (BEAKER) (test 0 /100 WBC 0-0 xoej=282) NEUTROPHILS RELATIVE PERCENT (BEAKER) (test 76 % jswi=429) LYMPHOCYTES RELATIVE PERCENT (BEAKER) (test 10 % qouj=485) MONOCYTES RELATIVE PERCENT (BEAKER) (test 8 % ushs=809) EOSINOPHILS RELATIVE PERCENT (BEAKER) (test 6 % kcfg=855) BASOPHILS RELATIVE PERCENT (BEAKER) (test 1 % djmh=830) NEUTROPHILS ABSOLUTE COUNT (BEAKER) (test 5.04 K/ L 1.56-6.13 xxgs=486) LYMPHOCYTES ABSOLUTE COUNT (BEAKER) (test 0.64 K/ L 1.18-3.74 jhiy=150) MONOCYTES ABSOLUTE COUNT (BEAKER) (test 0.50 K/ L 0.24-0.36 vqkj=657) EOSINOPHILS ABSOLUTE COUNT (BEAKER) (test 0.36 K/ L 0.04-0.36 nvsv=390) BASOPHILS ABSOLUTE COUNT (BEAKER) (test 0.03 K/ L 0.01-0.08 zosu=831) IMMATURE GRANULOCYTES-RELATIVE PERCENT (BEAKER) 0 % 0-1 (test qitu=8384) BASIC METABOLIC [id number] 08:14:00 Test Item Value Reference Range Comments SODIUM (BEAKER) (test 136 meq/L 136-145 jcym=194) POTASSIUM (BEAKER) (test 3.8 meq/L 3.5-5.1 iuxx=023) CHLORIDE (BEAKER) (test 102 meq/L 98-107 alvf=108) CO2 (BEAKER) (test 25 meq/L 22-29 lbzv=892) BLOOD UREA NITROGEN 33 mg/dL 7-21 (BEAKER) (test hmwp=779) CREATININE (BEAKER) (test 3.86 mg/dL 0.57-1.25 jqze=328) GLUCOSE RANDOM (BEAKER) 76 mg/dL 70-105 (test dayu=725) CALCIUM (BEAKER) (test 8.3 mg/dL 8.4-10.2 tszn=331) EGFR (BEAKER) (test 11 mL/min/1.73 sq m ESTIMATED GFR IS NOT tpqf=8164) ACCURATE CREATININE CLEARANCE IN PREDICTING GLOMERULAR FILTRATION RATE. ESTIMATED GFR IS NOT APPLICABLE FOR DIALYSIS PATIENTS. [id number] 08:01:00 Test Item Value Reference Range Comments PHOSPHORUS (BEAKER) (test cpns=623) 4.4 mg/dL 2.3-4.7 [id number] 08:01:00 Test Item Value Reference Range Comments MAGNESIUM (BEAKER) (test fmbj=075) 1.9 mg/dL 1.6-2.6 CBC W/PLT COUNT & AUTO [id number] 06:38:00 Test Item Value Reference Range Comments WHITE BLOOD CELL COUNT (BEAKER) (test teum=470) 5.8 K/ L 3.5-10.5 RED BLOOD CELL COUNT (BEAKER) (test cofr=517) 3.11 M/ L 3.93-5.22 HEMOGLOBIN (BEAKER) (test tcds=965) 9.3 GM/DL 11.2-15.7 HEMATOCRIT (BEAKER) (test vyut=726) 31.9 % 34.1-44.9 MEAN CORPUSCULAR VOLUME (BEAKER) (test amlp=489) 102.6 fL 79.4-94.8 MEAN CORPUSCULAR HEMOGLOBIN (BEAKER) (test 29.9 pg 25.6-32.2 wsdf=696) MEAN CORPUSCULAR HEMOGLOBIN CONC (BEAKER) (test 29.2 GM/DL 32.2-35.5 fxou=557) RED CELL DISTRIBUTION WIDTH (BEAKER) (test 19.9 % 11.7-14.4 mocx=917) PLATELET COUNT (BEAKER) (test vvav=373) 138 K/CU MM 150-450 MEAN PLATELET VOLUME (BEAKER) (test naze=326) 11.2 fL 9.4-12.3 NUCLEATED RED BLOOD CELLS (BEAKER) (test 0 /100 WBC 0-0 dxbx=066) NEUTROPHILS RELATIVE PERCENT (BEAKER) (test 76 % ximy=272) LYMPHOCYTES RELATIVE PERCENT (BEAKER) (test 13 % bydh=696) MONOCYTES RELATIVE PERCENT (BEAKER) (test 6 % wtry=669) EOSINOPHILS RELATIVE PERCENT (BEAKER) (test 5 % umau=410) BASOPHILS RELATIVE PERCENT (BEAKER) (test 0 % ezhq=915) NEUTROPHILS ABSOLUTE COUNT (BEAKER) (test 4.39 K/ L 1.56-6.13 scwj=883) LYMPHOCYTES ABSOLUTE COUNT (BEAKER) (test 0.75 K/ L 1.18-3.74 umlv=672) MONOCYTES ABSOLUTE COUNT (BEAKER) (test 0.35 K/ L 0.24-0.36 imtf=583) EOSINOPHILS ABSOLUTE COUNT (BEAKER) (test 0.27 K/ L 0.04-0.36 koff=156) BASOPHILS ABSOLUTE COUNT (BEAKER) (test 0.01 K/ L 0.01-0.08 kyin=973) IMMATURE GRANULOCYTES-RELATIVE PERCENT (BEAKER) 1 % 0-1 (test tejv=8636) OCCULT BLOOD, [id number] 17:25:00 Test Item Value Reference Range Comments FECAL OCCULT BLOOD (BEAKER) (test uexl=755) Positive Negative [id number] 05:54:00 Test Item Value Reference Range Comments PHOSPHORUS (BEAKER) (test kwrf=849) 3.9 mg/dL 2.3-4.7 [id number] 05:54:00 Test Item Value Reference Range Comments MAGNESIUM (BEAKER) (test flym=830) 2.0 mg/dL 1.6-2.6 BASIC METABOLIC [id number] 05:54:00 Test Item Value Reference Range Comments SODIUM (BEAKER) (test 139 meq/L 136-145 vcck=966) POTASSIUM (BEAKER) (test 3.9 meq/L 3.5-5.1 zmus=268) CHLORIDE (BEAKER) (test 103 meq/L 98-107 tbom=971) CO2 (BEAKER) (test 29 meq/L 22-29 tuse=943) BLOOD UREA NITROGEN 23 mg/dL 7-21 (BEAKER) (test etin=028) CREATININE (BEAKER) (test 2.76 mg/dL 0.57-1.25 rpuh=324) GLUCOSE RANDOM (BEAKER) 105 mg/dL 70-105 (test zrvq=026) CALCIUM (BEAKER) (test 8.2 mg/dL 8.4-10.2 eqhz=011) EGFR (BEAKER) (test 16 mL/min/1.73 sq m ESTIMATED GFR IS NOT mjrf=1028) ACCURATE CREATININE CLEARANCE IN PREDICTING GLOMERULAR FILTRATION RATE. ESTIMATED GFR IS NOT APPLICABLE FOR DIALYSIS PATIENTS. CBC W/PLT COUNT & AUTO [id number] 05:38:00 Test Item Value Reference Range Comments WHITE BLOOD CELL COUNT (BEAKER) (test ghgj=224) 7.5 K/ L 3.5-10.5 RED BLOOD CELL COUNT (BEAKER) (test nwcq=252) 3.08 M/ L 3.93-5.22 HEMOGLOBIN (BEAKER) (test ikfi=713) 9.0 GM/DL 11.2-15.7 HEMATOCRIT (BEAKER) (test vxhi=028) 31.7 % 34.1-44.9 MEAN CORPUSCULAR VOLUME (BEAKER) (test ibef=379) 102.9 fL 79.4-94.8 MEAN CORPUSCULAR HEMOGLOBIN (BEAKER) (test 29.2 pg 25.6-32.2 yucj=264) MEAN CORPUSCULAR HEMOGLOBIN CONC (BEAKER) (test 28.4 GM/DL 32.2-35.5 mrog=709) RED CELL DISTRIBUTION WIDTH (BEAKER) (test 20.3 % 11.7-14.4 eswv=249) PLATELET COUNT (BEAKER) (test vrzv=352) 152 K/CU MM 150-450 MEAN PLATELET VOLUME (BEAKER) (test dndi=763) 11.0 fL 9.4-12.3 NUCLEATED RED BLOOD CELLS (BEAKER) (test 0 /100 WBC 0-0 wkjg=461) NEUTROPHILS RELATIVE PERCENT (BEAKER) (test 77 % aavz=731) LYMPHOCYTES RELATIVE PERCENT (BEAKER) (test 12 % yqfg=305) MONOCYTES RELATIVE PERCENT (BEAKER) (test 8 % lkmw=531) EOSINOPHILS RELATIVE PERCENT (BEAKER) (test 2 % pler=733) BASOPHILS RELATIVE PERCENT (BEAKER) (test 0 % orpz=873) NEUTROPHILS ABSOLUTE COUNT (BEAKER) (test 5.80 K/ L 1.56-6.13 jdtx=544) LYMPHOCYTES ABSOLUTE COUNT (BEAKER) (test 0.87 K/ L 1.18-3.74 jsdz=266) MONOCYTES ABSOLUTE COUNT (BEAKER) (test 0.61 K/ L 0.24-0.36 sgbm=105) EOSINOPHILS ABSOLUTE COUNT (BEAKER) (test 0.18 K/ L 0.04-0.36 olaq=015) BASOPHILS ABSOLUTE COUNT (BEAKER) (test 0.02 K/ L 0.01-0.08 xvxd=053) IMMATURE GRANULOCYTES-RELATIVE PERCENT (BEAKER) 1 % 0-1 (test wrah=6161) POCT-GLUCOSE [id number] 22:40:00 Test Item Value Reference Range Comments POC-GLUCOSE METER (BEAKER) 109 mg/dL 70-110 TESTED AT [address] (test rlhs=1167) [facility] [address] POCT-GLUCOSE [id number] 18:24:00 Test Item Value Reference Range Comments POC-GLUCOSE METER (BEAKER) 111 mg/dL 70-110 TESTED AT [address] (test hnnv=3262) [facility] [address] POCT-GLUCOSE [id number] 13:41:00 Test Item Value Reference Range Comments POC-GLUCOSE METER (BEAKER) 100 mg/dL 70-110 TESTED AT [address] (test sjfx=1166) [facility] [address] POCT-GLUCOSE [id number] 06:37:00 Test Item Value Reference Range Comments POC-GLUCOSE METER (BEAKER) 94 mg/dL 70-110 TESTED AT [address] (test pzxd=8805) [place] [id number] 06:26:00 Test Item Value Reference Range Comments PHOSPHORUS (BEAKER) (test khzw=394) 5.9 mg/dL 2.3-4.7 [id number] 06:26:00 Test Item Value Reference Range Comments MAGNESIUM (BEAKER) (test yzkf=834) 2.0 mg/dL 1.6-2.6 BASIC METABOLIC [id number] 06:26:00 Test Item Value Reference Range Comments SODIUM (BEAKER) (test 138 meq/L 136-145 jaiz=085) POTASSIUM (BEAKER) (test 4.8 meq/L 3.5-5.1 clkv=282) CHLORIDE (BEAKER) (test 104 meq/L 98-107 hezc=245) CO2 (BEAKER) (test 21 meq/L 22-29 tihu=995) BLOOD UREA NITROGEN 40 mg/dL 7-21 (BEAKER) (test qjnh=829) CREATININE (BEAKER) (test 3.48 mg/dL 0.57-1.25 jtae=332) GLUCOSE RANDOM (BEAKER) 82 mg/dL 70-105 (test namw=941) CALCIUM (BEAKER) (test 7.7 mg/dL 8.4-10.2 vhai=461) EGFR (BEAKER) (test 12 mL/min/1.73 sq m ESTIMATED GFR IS NOT rous=2234) ACCURATE CREATININE CLEARANCE IN PREDICTING GLOMERULAR FILTRATION RATE. ESTIMATED GFR IS NOT APPLICABLE FOR DIALYSIS PATIENTS. CBC W/PLT COUNT & AUTO [id number] 06:05:00 Test Item Value Reference Range Comments WHITE BLOOD CELL COUNT (BEAKER) (test oybf=610) 6.6 K/ L 3.5-10.5 RED BLOOD CELL COUNT (BEAKER) (test rylj=823) 3.13 M/ L 3.93-5.22 HEMOGLOBIN (BEAKER) (test qiuz=449) 9.1 GM/DL 11.2-15.7 HEMATOCRIT (BEAKER) (test vufv=274) 32.5 % 34.1-44.9 MEAN CORPUSCULAR VOLUME (BEAKER) (test jwym=934) 103.8 fL 79.4-94.8 MEAN CORPUSCULAR HEMOGLOBIN (BEAKER) (test 29.1 pg 25.6-32.2 rbuo=929) MEAN CORPUSCULAR HEMOGLOBIN CONC (BEAKER) (test 28.0 GM/DL 32.2-35.5 otrh=790) RED CELL DISTRIBUTION WIDTH (BEAKER) (test 20.5 % 11.7-14.4 iqfg=145) PLATELET COUNT (BEAKER) (test culr=500) 74 K/CU MM 150-450 MEAN PLATELET VOLUME (BEAKER) (test seje=327) 12.0 fL 9.4-12.3 NUCLEATED RED BLOOD CELLS (BEAKER) (test 0 /100 WBC 0-0 qlvw=531) NEUTROPHILS RELATIVE PERCENT (BEAKER) (test 76 % ltnr=902) LYMPHOCYTES RELATIVE PERCENT (BEAKER) (test 14 % siyn=485) MONOCYTES RELATIVE PERCENT (BEAKER) (test 9 % ygtt=903) EOSINOPHILS RELATIVE PERCENT (BEAKER) (test 0 % tmfd=985) BASOPHILS RELATIVE PERCENT (BEAKER) (test 0 % plvv=190) NEUTROPHILS ABSOLUTE COUNT (BEAKER) (test 5.01 K/ L 1.56-6.13 yjvf=719) LYMPHOCYTES ABSOLUTE COUNT (BEAKER) (test 0.92 K/ L 1.18-3.74 euzh=092) MONOCYTES ABSOLUTE COUNT (BEAKER) (test ihnu=188) 0.58 K/ L 0.24-0.36 EOSINOPHILS ABSOLUTE COUNT (BEAKER) (test 0.01 K/ L 0.04-0.36 pisl=219) BASOPHILS ABSOLUTE COUNT (BEAKER) (test axoq=310) 0.01 K/ L 0.01-0.08 IMMATURE GRANULOCYTES-RELATIVE PERCENT (BEAKER) 1 % 0-1 (test nfji=7119) BLOOD [id number] 02:01:00 Test Item Value Reference Range Comments CULTURE (BEAKER) (test dyvu=4755) No growth in 5 days POCT-GLUCOSE [id number] 00:11:00 Test Item Value Reference Range Comments POC-GLUCOSE METER (BEAKER) 158 mg/dL 70-110 TESTED AT [address] (test ibxd=9557) [place] [address] RAD, CHEST, 1 VIEW, NON [id number] 13:55:00Reason for exam:->short of breathShould this be performed at the bedside?->YesFINAL REPORT AP chest HISTORY: Shortness of breath. COMPARISON: 05/09/2017. IMPRESSION: Endotracheal tube removed. Dialysis catheter and AICD present. Cardiomegaly. Thoracic aortic ectasia. Clear lungs. Signed: Chance Hernandez MDReport Verified Date/Time: 05/11/2018 13:55:01 Reading Location: [address] Transitional Reading Room POCT-GLUCOSE [id number] 13:02:00 Test Item Value Reference Range Comments POC-GLUCOSE METER (BEAKER) 135 mg/dL 70-110 TESTED AT [address] (test vimr=1397) [place] [address] B-TYPE NATRIURETIC FACTOR (BNP)2018-05-11 12:34:00 Test Item Value Reference Range Comments B-TYPE NATRIURETIC PEPTIDE (BEAKER) (test 37196 pg/mL 0-100 hnsw=522) POCT-GLUCOSE [id number] 08:16:00 Test Item Value Reference Range Comments POC-GLUCOSE METER (BEAKER) 107 mg/dL 70-110 TESTED AT [address] (test unbf=6249) [place] [address] BASIC METABOLIC [id number] 04:08:00 Test Item Value Reference Range Comments SODIUM (BEAKER) (test 139 meq/L 136-145 hscb=636) POTASSIUM (BEAKER) (test 4.5 meq/L 3.5-5.1 mkjt=969) CHLORIDE (BEAKER) (test 103 meq/L 98-107 zvjh=893) CO2 (BEAKER) (test 26 meq/L 22-29 pdnt=423) BLOOD UREA NITROGEN 23 mg/dL 7-21 (BEAKER) (test iltp=794) CREATININE (BEAKER) (test 2.34 mg/dL 0.57-1.25 npjg=285) GLUCOSE RANDOM (BEAKER) 93 mg/dL 70-105 (test symx=349) CALCIUM (BEAKER) (test 8.2 mg/dL 8.4-10.2 lppq=888) EGFR (BEAKER) (test 20 mL/min/1.73 sq m ESTIMATED GFR IS NOT oyyp=0243) ACCURATE CREATININE CLEARANCE IN PREDICTING GLOMERULAR FILTRATION RATE. ESTIMATED GFR IS NOT APPLICABLE FOR DIALYSIS PATIENTS. CBC W/PLT COUNT & AUTO [id number] 03:56:00 Test Item Value Reference Range Comments WHITE BLOOD CELL COUNT (BEAKER) (test aqma=322) 7.7 K/ L 3.5-10.5 RED BLOOD CELL COUNT (BEAKER) (test uxso=102) 2.86 M/ L 3.93-5.22 HEMOGLOBIN (BEAKER) (test allb=576) 8.3 GM/DL 11.2-15.7 HEMATOCRIT (BEAKER) (test zqvt=251) 28.9 % 34.1-44.9 MEAN CORPUSCULAR VOLUME (BEAKER) (test kqwb=483) 101.0 fL 79.4-94.8 MEAN CORPUSCULAR HEMOGLOBIN (BEAKER) (test 29.0 pg 25.6-32.2 kwvx=297) MEAN CORPUSCULAR HEMOGLOBIN CONC (BEAKER) (test 28.7 GM/DL 32.2-35.5 ggde=703) RED CELL DISTRIBUTION WIDTH (BEAKER) (test 21.3 % 11.7-14.4 vkel=387) PLATELET COUNT (BEAKER) (test zxsp=617) 145 K/CU MM 150-450 MEAN PLATELET VOLUME (BEAKER) (test vzkq=995) 11.0 fL 9.4-12.3 NUCLEATED RED BLOOD CELLS (BEAKER) (test 0 /100 WBC 0-0 zvhr=792) NEUTROPHILS RELATIVE PERCENT (BEAKER) (test 79 % gptf=822) LYMPHOCYTES RELATIVE PERCENT (BEAKER) (test 11 % atti=767) MONOCYTES RELATIVE PERCENT (BEAKER) (test 9 % wagm=023) EOSINOPHILS RELATIVE PERCENT (BEAKER) (test 0 % hofy=758) BASOPHILS RELATIVE PERCENT (BEAKER) (test 0 % fouk=348) NEUTROPHILS ABSOLUTE COUNT (BEAKER) (test 6.07 K/ L 1.56-6.13 qfru=557) LYMPHOCYTES ABSOLUTE COUNT (BEAKER) (test 0.87 K/ L 1.18-3.74 qatd=858) MONOCYTES ABSOLUTE COUNT (BEAKER) (test 0.66 K/ L 0.24-0.36 dxct=315) EOSINOPHILS ABSOLUTE COUNT (BEAKER) (test 0.02 K/ L 0.04-0.36 xizk=488) BASOPHILS ABSOLUTE COUNT (BEAKER) (test 0.01 K/ L 0.01-0.08 sxhc=246) IMMATURE GRANULOCYTES-RELATIVE PERCENT (BEAKER) 1 % 0-1 (test tqgd=2576) [id number] 03:55:00 Test Item Value Reference Range Comments PHOSPHORUS (BEAKER) (test axrt=316) 5.1 mg/dL 2.3-4.7 [id number] 03:55:00 Test Item Value Reference Range Comments MAGNESIUM (BEAKER) (test locb=035) 1.9 mg/dL 1.6-2.6 POCT-GLUCOSE [id number] 00:23:00 Test Item Value Reference Range Comments POC-GLUCOSE METER (BEAKER) 120 mg/dL 70-[address] [facility] [address] [facility] sebw[facility]955[facility] [address] SPUTUM CULTURE + GRAM [id number] 20:21:00 Test Item Value Reference Range Comments CULTURE (BEAKER) (test METHICILLIN RESISTANT <1+ Methicillin bars=9364) STAPHYLOCOCCUS AUREUS resistant Staphylococcus aureus Clindamycin (test code=10) Erythromycin (test code=4) Linezolid (test code=40) Nitrofurantoin (test code=23) Oxacillin (test code=14) Rifampin (test code=43) Tetracycline (test code=2) Trimethoprim + Sulfamethoxazole (test code=47) Vancomycin (test code=13) GRAM STAIN RESULT <1+ White blood cells (BEAKER) (test gyrw=6974) seen GRAM STAIN RESULT 0-5 epithelial cells (BEAKER) (test xjfp=116685) GRAM STAIN RESULT 2+ gram positive cocci (BEAKER) (test in chains and pairs qkax=847427) 2+ Normal respiratory baldev presentPOCT-GLUCOSE [id number] 17:39:00 Test Item Value Reference Range Comments POC-GLUCOSE METER (BEAKER) 186 mg/dL 70-110 TESTED AT [address] (test mrsn=8643) [place] [address] POCT-GLUCOSE [id number] 12:43:00 Test Item Value Reference Range Comments POC-GLUCOSE METER (BEAKER) 189 mg/dL 70-110 TESTED AT [address] (test jfvj=8296) [place] [address] [id number] 11:27:00 Test Item Value Reference Range Comments PROTIME (BEAKER) (test zugg=764) 15.0 seconds 11.7-14.7 INR (BEAKER) (test jgzw=448) 1.1 <=5.9 PARTIAL THROMBOPLASTIN TIME (BEAKER) (test 41.5 seconds 22.5-36.0 xber=255) RECOMMENDED COUMADIN/WARFARIN INR THERAPY RANGESSTANDARD DOSE: 2.0 - 3.0 Includes: PROPHYLAXIS forvenous thrombosis, systemic embolization; TREATMENT for venous thrombosis and/or pulmonary embolus.HIGH RISK: Target INR is 2.5-3.5 for patients with mechanical heart valves.POCT-GLUCOSE [id number] 06:52:00 Test Item Value Reference Range Comments POC-GLUCOSE METER (BEAKER) 204 mg/dL 70-110 TESTED AT [address] (test kqlx=3553) [place] [id number] BASIC METABOLIC [id number] 06:44:00 Test Item Value Reference Range Comments SODIUM (BEAKER) (test 138 meq/L 136-145 fiwj=606) POTASSIUM (BEAKER) (test 5.2 meq/L 3.5-5.1 vpbh=455) CHLORIDE (BEAKER) (test 102 meq/L 98-107 fzca=259) CO2 (BEAKER) (test 25 meq/L 22-29 xgqz=780) BLOOD UREA NITROGEN 36 mg/dL 7-21 (BEAKER) (test numz=357) CREATININE (BEAKER) (test 2.77 mg/dL 0.57-1.25 yvij=715) GLUCOSE RANDOM (BEAKER) 142 mg/dL 70-105 (test fsgu=349) CALCIUM (BEAKER) (test 8.0 mg/dL 8.4-10.2 vnhg=902) EGFR (BEAKER) (test 16 mL/min/1.73 sq m ESTIMATED GFR IS NOT bytg=2759) ACCURATE CREATININE CLEARANCE IN PREDICTING GLOMERULAR FILTRATION RATE. ESTIMATED GFR IS NOT APPLICABLE FOR DIALYSIS PATIENTS. [id number] 06:14:00 Test Item Value Reference Range Comments PHOSPHORUS (BEAKER) (test jjvo=842) 6.1 mg/dL 2.3-4.7 [id number] 06:14:00 Test Item Value Reference Range Comments MAGNESIUM (BEAKER) (test ipsy=022) 2.1 mg/dL 1.6-2.6 CBC W/PLT COUNT & AUTO [id number] 06:10:00 Test Item Value Reference Range Comments WHITE BLOOD CELL COUNT (BEAKER) (test sjsp=422) 7.2 K/ L 3.5-10.5 RED BLOOD CELL COUNT (BEAKER) (test aend=792) 2.97 M/ L 3.93-5.22 HEMOGLOBIN (BEAKER) (test pufd=803) 8.9 GM/DL 11.2-15.7 HEMATOCRIT (BEAKER) (test jatx=094) 30.3 % 34.1-44.9 MEAN CORPUSCULAR VOLUME (BEAKER) (test yuel=653) 102.0 fL 79.4-94.8 MEAN CORPUSCULAR HEMOGLOBIN (BEAKER) (test 30.0 pg 25.6-32.2 jbed=394) MEAN CORPUSCULAR HEMOGLOBIN CONC (BEAKER) (test 29.4 GM/DL 32.2-35.5 vvvv=886) RED CELL DISTRIBUTION WIDTH (BEAKER) (test 21.9 % 11.7-14.4 qkrp=137) PLATELET COUNT (BEAKER) (test gflu=395) 160 K/CU MM 150-450 MEAN PLATELET VOLUME (BEAKER) (test yqjr=976) 11.0 fL 9.4-12.3 NUCLEATED RED BLOOD CELLS (BEAKER) (test 0 /100 WBC 0-0 rbgc=911) NEUTROPHILS RELATIVE PERCENT (BEAKER) (test 79 % kosm=511) LYMPHOCYTES RELATIVE PERCENT (BEAKER) (test 11 % eusv=923) MONOCYTES RELATIVE PERCENT (BEAKER) (test 9 % elcd=845) EOSINOPHILS RELATIVE PERCENT (BEAKER) (test 0 % dehl=287) BASOPHILS RELATIVE PERCENT (BEAKER) (test 0 % ojso=058) NEUTROPHILS ABSOLUTE COUNT (BEAKER) (test 5.74 K/ L 1.56-6.13 ptkk=558) LYMPHOCYTES ABSOLUTE COUNT (BEAKER) (test 0.78 K/ L 1.18-3.74 yjoo=753) MONOCYTES ABSOLUTE COUNT (BEAKER) (test 0.65 K/ L 0.24-0.36 fxxr=817) EOSINOPHILS ABSOLUTE COUNT (BEAKER) (test 0.00 K/ L 0.04-0.36 xqun=031) BASOPHILS ABSOLUTE COUNT (BEAKER) (test 0.01 K/ L 0.01-0.08 lklh=346) IMMATURE GRANULOCYTES-RELATIVE PERCENT (BEAKER) 1 % 0-1 (test dbgp=7321) [id number] 05:48:00 Test Item Value Reference Range Comments PARTIAL THROMBOPLASTIN TIME (BEAKER) (test 28.8 seconds 22.5-36.0 kikz=634) POCT-GLUCOSE [id number] 00:19:00 Test Item Value Reference Range Comments POC-GLUCOSE METER (BEAKER) 216 mg/dL 70-110 TESTED AT [address] (test gngy=2217) [facility] [address] POCT-GLUCOSE [id number] 17:43:00 Test Item Value Reference Range Comments POC-GLUCOSE METER (BEAKER) 266 mg/dL 70-110 TESTED AT [address] (test czol=9577) [facility] [address] [id number] 15:42:00 Test Item Value Reference Range Comments PROTIME (BEAKER) (test ocse=379) 15.5 seconds 11.7-14.7 INR (BEAKER) (test ukmy=065) 1.2 <=5.9 PARTIAL THROMBOPLASTIN TIME (BEAKER) (test 83.0 seconds 22.5-36.0 kllx=400) RECOMMENDED COUMADIN/WARFARIN INR THERAPY RANGESSTANDARD DOSE: 2.0 - 3.0 Includes: PROPHYLAXIS forvenous thrombosis, systemic embolization; TREATMENT for venous thrombosis and/or pulmonary embolus.HIGH RISK: Target INR is 2.5-3.5 for patients with mechanical heart valves.POCT-GLUCOSE [id number] 12:48:00 Test Item Value Reference Range Comments POC-GLUCOSE METER (BEAKER) 211 mg/dL 70-110 TESTED AT [address] (test klht=5243) [place] [address] RAD, CHEST, 1 VIEW, NON [id number] 07:51:00Reason for exam:->Retracted ETT back. Now 19 @ [facility] this be performed at the bedside?->YesFINAL REPORT [...] Verified Date/ Time: 05/09/2018 07:51:23 Reading Location: [facility] Diagnostic Imaging Reading Room - [place] [id number] Electronically signed by: FOREST MONTAGUE MD on 2018 07:51 AMPOCT-GLUCOSE [id number] 06:34:00 Test Item Value Reference Range Comments POC-GLUCOSE METER (BEAKER) 206 mg/dL 70-110 TESTED AT [address] (test hzbe=3307) [place] [id number] HEPARIN [facility] - [id number] 06:24:00 Test Item Value Reference Range Comments UNFRACTIONATED HEPARIN-ANTI 10A (BEAKER) (test 0.16 u/ml 0.30-0.70 csfd=9642) Recommendations for Monitoring Unfractionated Heparin Therapeutic Range: 0.3- 0.7 u/mL with continuous IV infusionCBC W/PLT COUNT & AUTO [id number] 05:49:00 Test Item Value Reference Range Comments WHITE BLOOD CELL COUNT (BEAKER) (test gsbc=139) 6.3 K/ L 3.5-10.5 RED BLOOD CELL COUNT (BEAKER) (test mcbb=349) 2.92 M/ L 3.93-5.22 HEMOGLOBIN (BEAKER) (test lzsx=818) 8.5 GM/DL 11.2-15.7 HEMATOCRIT (BEAKER) (test lmik=219) 28.8 % 34.1-44.9 MEAN CORPUSCULAR VOLUME (BEAKER) (test yicc=708) 98.6 fL 79.4-94.8 MEAN CORPUSCULAR HEMOGLOBIN (BEAKER) (test 29.1 pg 25.6-32.2 icdm=252) MEAN CORPUSCULAR HEMOGLOBIN CONC (BEAKER) (test 29.5 GM/DL 32.2-35.5 rbmz=903) RED CELL DISTRIBUTION WIDTH (BEAKER) (test 21.8 % 11.7-14.4 eeyp=056) PLATELET COUNT (BEAKER) (test fugv=699) 147 K/CU MM 150-450 MEAN PLATELET VOLUME (BEAKER) (test ebvm=574) 10.4 fL 9.4-12.3 NUCLEATED RED BLOOD CELLS (BEAKER) (test 0 /100 WBC 0-0 atmu=967) NEUTROPHILS RELATIVE PERCENT (BEAKER) (test 77 % awvv=289) LYMPHOCYTES RELATIVE PERCENT (BEAKER) (test 9 % jpht=046) MONOCYTES RELATIVE PERCENT (BEAKER) (test 13 % chya=392) EOSINOPHILS RELATIVE PERCENT (BEAKER) (test 0 % hqmm=764) BASOPHILS RELATIVE PERCENT (BEAKER) (test 0 % ekdc=173) NEUTROPHILS ABSOLUTE COUNT (BEAKER) (test 4.91 K/ L 1.56-6.13 fyun=875) LYMPHOCYTES ABSOLUTE COUNT (BEAKER) (test 0.59 K/ L 1.18-3.74 mfws=382) MONOCYTES ABSOLUTE COUNT (BEAKER) (test 0.79 K/ L 0.24-0.36 denh=344) EOSINOPHILS ABSOLUTE COUNT (BEAKER) (test 0.01 K/ L 0.04-0.36 qaqu=817) BASOPHILS ABSOLUTE COUNT (BEAKER) (test 0.01 K/ L 0.01-0.08 kzop=612) IMMATURE GRANULOCYTES-RELATIVE PERCENT (BEAKER) 1 % 0-1 (test uuyh=1710) [id number] 05:33:00 Test Item Value Reference Range Comments PROTIME (BEAKER) (test nlkg=864) 15.3 seconds 11.7-14.7 INR (BEAKER) (test xjas=229) 1.2 <=5.9 PARTIAL THROMBOPLASTIN TIME (BEAKER) (test 76.7 seconds 22.5-36.0 kuxf=323) RECOMMENDED COUMADIN/WARFARIN INR THERAPY RANGESSTANDARD DOSE: 2.0 - 3.0 Includes: PROPHYLAXIS forvenous thrombosis, systemic embolization; TREATMENT for venous thrombosis and/or pulmonary embolus.HIGH RISK: Target INR is 2.5-3.5 for patients with mechanical heart valves.RAD, CHEST, 1 VIEW, NON [id number] 03:58:00Reason for exam:->intubatedShould this be performed at [...] MDReport VerifiedDate/ Time: 05/09/2018 03:58:24 Reading Location: [address] Reading Room [id number] 03:12:00 Test Item Value Reference Range Comments PROCALCITONIN (BEAKER) (test mhwg=2973) 0.29 ng/mL <0.05 SEPSIS RISK (ng/mL)Low: 0.05-0.50Intermediate: 0.51-2.00High: & gt;=[id number] 03:12:00 Test Item Value Reference Range Comments PROTIME (BEAKER) (test lorm=736) 16.2 seconds 11.7-14.7 INR (BEAKER) (test sgvb=470) 1.3 <=5.9 PARTIAL THROMBOPLASTIN TIME (BEAKER) (test > seconds 22.5-36.0 xbca=667) RECOMMENDED COUMADIN/WARFARIN INR THERAPY RANGESSTANDARD DOSE: 2.0 - 3.0 Includes: PROPHYLAXIS forvenous thrombosis, systemic embolization; TREATMENT for venous thrombosis and/or pulmonary embolus.HIGH RISK: Target INR is 2.5-3.5 for patients with mechanical heart valves.[id number] 03:04:00 Test Item Value Reference Range Comments PHOSPHORUS (BEAKER) (test djbj=031) 1.5 mg/dL 2.3-4.7 BASIC METABOLIC [id number] 03:01:00 Test Item Value Reference Range Comments SODIUM (BEAKER) (test 136 meq/L 136-145 swnw=303) POTASSIUM (BEAKER) (test 3.9 meq/L 3.5-5.1 mxto=231) CHLORIDE (BEAKER) (test 103 meq/L 98-107 qdde=630) CO2 (BEAKER) (test 26 meq/L 22-29 gutn=228) BLOOD UREA NITROGEN 17 mg/dL 7-21 (BEAKER) (test hwpc=189) CREATININE (BEAKER) (test 1.76 mg/dL 0.57-1.25 ylpi=358) GLUCOSE RANDOM (BEAKER) 187 mg/dL 70-105 (test hgkv=670) CALCIUM (BEAKER) (test 8.4 mg/dL 8.4-10.2 hzkd=474) EGFR (BEAKER) (test 27 mL/min/1.73 sq m ESTIMATED GFR IS NOT jiyw=4895) ACCURATE CREATININE CLEARANCE IN PREDICTING GLOMERULAR FILTRATION RATE. ESTIMATED GFR IS NOT APPLICABLE FOR DIALYSIS PATIENTS. [id number] 02:55:00 Test Item Value Reference Range Comments MAGNESIUM (BEAKER) (test cnzo=826) 2.0 mg/dL 1.6-2.6 CBC W/PLT COUNT & AUTO [id number] 02:34:00 Test Item Value Reference Range Comments WHITE BLOOD CELL COUNT (BEAKER) (test hybn=975) 5.7 K/ L 3.5-10.5 RED BLOOD CELL COUNT (BEAKER) (test ocps=203) 2.77 M/ L 3.93-5.22 HEMOGLOBIN (BEAKER) (test qqpx=077) 7.9 GM/DL 11.2-15.7 HEMATOCRIT (BEAKER) (test gstb=662) 27.0 % 34.1-44.9 MEAN CORPUSCULAR VOLUME (BEAKER) (test lref=585) 97.5 fL 79.4-94.8 MEAN CORPUSCULAR HEMOGLOBIN (BEAKER) (test 28.5 pg 25.6-32.2 vdck=032) MEAN CORPUSCULAR HEMOGLOBIN CONC (BEAKER) (test 29.3 GM/DL 32.2-35.5 ayiz=150) RED CELL DISTRIBUTION WIDTH (BEAKER) (test 21.6 % 11.7-14.4 anuf=575) PLATELET COUNT (BEAKER) (test dfvv=040) 137 K/CU MM 150-450 MEAN PLATELET VOLUME (BEAKER) (test hgjb=086) 10.6 fL 9.4-12.3 NUCLEATED RED BLOOD CELLS (BEAKER) (test 0 /100 WBC 0-0 zjio=403) NEUTROPHILS RELATIVE PERCENT (BEAKER) (test 80 % jgci=235) LYMPHOCYTES RELATIVE PERCENT (BEAKER) (test 9 % fxqd=499) MONOCYTES RELATIVE PERCENT (BEAKER) (test 12 % mwob=947) EOSINOPHILS RELATIVE PERCENT (BEAKER) (test 0 % zidq=895) BASOPHILS RELATIVE PERCENT (BEAKER) (test 0 % hvts=233) NEUTROPHILS ABSOLUTE COUNT (BEAKER) (test 4.54 K/ L 1.56-6.13 jijy=216) LYMPHOCYTES ABSOLUTE COUNT (BEAKER) (test 0.50 K/ L 1.18-3.74 skok=455) MONOCYTES ABSOLUTE COUNT (BEAKER) (test 0.66 K/ L 0.24-0.36 qili=755) EOSINOPHILS ABSOLUTE COUNT (BEAKER) (test 0.00 K/ L 0.04-0.36 tvrc=420) BASOPHILS ABSOLUTE COUNT (BEAKER) (test 0.00 K/ L 0.01-0.08 wyye=565) IMMATURE GRANULOCYTES-RELATIVE PERCENT (BEAKER) 0 % 0-1 (test bnqw=8697) [id number] 00:43:00 Test Item Value Reference Range Comments PROTIME (BEAKER) (test wvip=739) 17.0 seconds 11.7-14.7 INR (BEAKER) (test wvyx=230) 1.4 <=5.9 PARTIAL THROMBOPLASTIN TIME (BEAKER) (test > seconds 22.5-36.0 sbjg=824) RECOMMENDED COUMADIN/WARFARIN INR THERAPY RANGESSTANDARD DOSE: 2.0 - 3.0 Includes: PROPHYLAXIS forvenous thrombosis, systemic embolization; TREATMENT for venous thrombosis and/or pulmonary embolus.HIGH RISK: Target INR is 2.5-3.5 for patients with mechanical heart valves.POCT-GLUCOSE [id number] 00:09:00 Test Item Value Reference Range Comments POC-GLUCOSE METER (BEAKER) 213 mg/dL 70-110 TESTED AT [address] (test kgsi=1092) [place] [address] POCT-GLUCOSE [id number] 18:47:00 Test Item Value Reference Range Comments POC-GLUCOSE METER (BEAKER) 219 mg/dL 70-110 TESTED AT [address] (test tdja=5001) [place] [address] CBC (HEMOGRAM ONLY)2018-05-08 18:03:00 Test Item Value Reference Range Comments WHITE BLOOD CELL COUNT (BEAKER) (test ihlj=934) 6.3 K/ L 3.5-10.5 RED BLOOD CELL COUNT (BEAKER) (test outx=622) 3.12 M/ L 3.93-5.22 HEMOGLOBIN (BEAKER) (test iwtd=649) 9.1 GM/DL 11.2-15.7 HEMATOCRIT (BEAKER) (test qriv=914) 30.6 % 34.1-44.9 MEAN CORPUSCULAR VOLUME (BEAKER) (test cvks=580) 98.1 fL 79.4-94.8 MEAN CORPUSCULAR HEMOGLOBIN (BEAKER) (test 29.2 pg 25.6-32.2 wiha=451) MEAN CORPUSCULAR HEMOGLOBIN CONC (BEAKER) (test 29.7 GM/DL 32.2-35.5 kaab=345) RED CELL DISTRIBUTION WIDTH (BEAKER) (test 21.8 % 11.7-14.4 hlgw=286) PLATELET COUNT (BEAKER) (test oaov=253) 147 K/CU MM 150-450 MEAN PLATELET VOLUME (BEAKER) (test lrfu=787) 10.5 fL 9.4-12.3 NUCLEATED RED BLOOD CELLS (BEAKER) (test 0 /100 WBC 0-0 mkol=929) POCT-GLUCOSE [id number] 13:06:00 Test Item Value Reference Range Comments POC-GLUCOSE METER (BEAKER) 133 mg/dL 70-[address] [facility] [address] [facility] (test oxcu[facility]8980) [facility] [address] [id number] 11:26:00 Test Item Value Reference Range Comments PROCALCITONIN (BEAKER) (test jfvg=8352) 0.11 ng/mL <0.05 SEPSIS RISK (ng/mL)Low: 0.05-0.50Intermediate: 0.51-2.00High: & gt;=2.01BLOOD GAS, [id number] 09:45:00 Test Item Value Reference Range Comments PH ARTERIAL (BEAKER) (test srye=804) 7.42 7.35-7.45 PCO2 ARTERIAL (BEAKER) (test wkla=796) 39 mmHg 35-45 PO2 ARTERIAL (BEAKER) (test jnhz=098) 64 mmHg 80-90 O2 SATURATION ARTERIAL (BEAKER) (test vdjr=860) 92.6 % 96.0-97.0 HCO3 ARTERIAL (BEAKER) (test gbey=987) 25 mmol/L 21-29 BASE EXCESS ARTERIAL (BEAKER) (test jlre=862) 0.6 mmol/L -2.0-3.0 PATIENT TEMPERATURE (BEAKER) (test btts=7948) 37.2 C FIO2 (BEAKER) (test qchn=1361) 24.0 % RAD, CHEST, 1 VIEW, NON [id number] 09:11:00Reason for exam:->/pulm edemaShould this be performed [...] Navarroort Verified Date/Time: 05/08/2018 09:11:23 Reading Location: [facility] Rad[facility] Reading Room Electronically signed by: LEON NAVARRO M.D. on 05/08 09:11 AMTROPONIN [id number] 08:13:00 Test Item Value Reference Range Comments TROPONIN I (BEAKER) (test cylr=380) 0.28 ng/mL 0.00-0.03 Troponin I (TnI) levels [...] failure, acidosis, acute neurological disease, and persistent tachyarrhythmia.[id number] 07:56:00 Test Item Value Reference Range Comments MAGNESIUM (BEAKER) (test hrka=310) 1.7 mg/dL 1.6-2.6 POCT-GLUCOSE [id number] 06:00:00 Test Item Value Reference Range Comments POC-GLUCOSE METER (BEAKER) 121 mg/dL 70-110 TESTED AT [address] (test ceme=2965) [facility] [address] [id number] 05:48:00 Test Item Value Reference Range Comments FERRITIN (BEAKER) (test aroe=239) 577 ng/mL 5-275 TSH/FREE T4 IF [id number] 05:48:00 Test Item Value Reference Range Comments THYROID STIMULATING HORMONE (BEAKER) (test 1.73 uIU/mL 0.35-4.94 rsuz=363) VITAMIN B12 AND [id number] 05:48:00 Test Item Value Reference Range Comments VITAMIN B12 (BEAKER) (test gsgc=002) 677 pg/mL 213-816 FOLATE (BEAKER) (test uvvu=308) 15.9 ng/mL >=7.0 IRON, TIBC, % SAT. (WITHOUT FERRITIN)2018-05-08 05:20:00 Test Item Value Reference Range Comments IRON (BEAKER) (test thle=269) 29.0 ug/dL 40.0-160.0 TOTAL IRON BINDING CAPACITY (BEAKER) (test 138 ug/dL 250-450 zeej=611) IRON % SATURATION (2) (BEAKER) (test zvit=5714) 21 % 20-55 LIPID [id number] 05:18:00 Test Item Value Reference Range Comments TRIGLYCERIDES (BEAKER) (test pkas=231) 77 mg/dL CHOLESTEROL (BEAKER) (test siyk=047) 93 mg/dL HDL CHOLESTEROL (BEAKER) (test izcd=905) 42 mg/dL LDL CHOLESTEROL CALCULATED (BEAKER) (test tmai=941) 36 mg/dL Triglyceride Reference Range: Low Risk <150 Borderline 150- 199 High Risk 200-499 Very High Risk >=500Cholesterol Reference Range: Low Risk <200 Borderline 200-239 High Risk > 240HDL Cholesterol Reference Range: Low Risk >=60 High Risk <40LDL Cholesterol Reference Range: Optimal <100 Near Optimal 100-129 Borderline 130-159 High 160-189 Very High >=190BASIC METABOLIC [id number] 05:16:00 Test Item Value Reference Range Comments SODIUM (BEAKER) (test 138 meq/L 136-145 rasw=238) POTASSIUM (BEAKER) (test 3.2 meq/L 3.5-5.1 zxbv=913) CHLORIDE (BEAKER) (test 102 meq/L 98-107 viee=013) CO2 (BEAKER) (test 24 meq/L 22-29 zddq=367) BLOOD UREA NITROGEN 16 mg/dL 7-21 (BEAKER) (test vbxq=613) CREATININE (BEAKER) (test 2.34 mg/dL 0.57-1.25 ivvp=677) GLUCOSE RANDOM (BEAKER) 104 mg/dL 70-105 (test kiyo=406) CALCIUM (BEAKER) (test 8.3 mg/dL 8.4-10.2 rqsv=443) EGFR (BEAKER) (test 20 mL/min/1.73 sq m ESTIMATED GFR IS NOT ijlj=4259) ACCURATE CREATININE CLEARANCE IN PREDICTING GLOMERULAR FILTRATION RATE. ESTIMATED GFR IS NOT APPLICABLE FOR DIALYSIS PATIENTS. CBC W/PLT COUNT & AUTO [id number] 05:12:00 Test Item Value Reference Range Comments WHITE BLOOD CELL COUNT (BEAKER) (test opgh=939) 6.0 K/ L 3.5-10.5 RED BLOOD CELL COUNT (BEAKER) (test psli=028) 2.76 M/ L 3.93-5.22 HEMOGLOBIN (BEAKER) (test euuk=831) 8.1 GM/DL 11.2-15.7 HEMATOCRIT (BEAKER) (test jiwh=086) 26.6 % 34.1-44.9 MEAN CORPUSCULAR VOLUME (BEAKER) (test toei=435) 96.4 fL 79.4-94.8 MEAN CORPUSCULAR HEMOGLOBIN (BEAKER) (test 29.3 pg 25.6-32.2 vziy=333) MEAN CORPUSCULAR HEMOGLOBIN CONC (BEAKER) (test 30.5 GM/DL 32.2-35.5 zrpn=066) RED CELL DISTRIBUTION WIDTH (BEAKER) (test 21.5 % 11.7-14.4 qjej=806) PLATELET COUNT (BEAKER) (test dvyw=317) 139 K/CU MM 150-450 MEAN PLATELET VOLUME (BEAKER) (test uyld=131) 10.0 fL 9.4-12.3 NUCLEATED RED BLOOD CELLS (BEAKER) (test 0 /100 WBC 0-0 edhj=654) NEUTROPHILS RELATIVE PERCENT (BEAKER) (test 75 % bktj=477) LYMPHOCYTES RELATIVE PERCENT (BEAKER) (test 11 % ypxg=116) MONOCYTES RELATIVE PERCENT (BEAKER) (test 14 % ngsc=138) EOSINOPHILS RELATIVE PERCENT (BEAKER) (test 1 % iedp=515) BASOPHILS RELATIVE PERCENT (BEAKER) (test 0 % ymvw=171) NEUTROPHILS ABSOLUTE COUNT (BEAKER) (test 4.48 K/ L 1.56-6.13 tnab=492) LYMPHOCYTES ABSOLUTE COUNT (BEAKER) (test 0.64 K/ L 1.18-3.74 prio=974) MONOCYTES ABSOLUTE COUNT (BEAKER) (test 0.82 K/ L 0.24-0.36 zrey=328) EOSINOPHILS ABSOLUTE COUNT (BEAKER) (test 0.04 K/ L 0.04-0.36 gxcr=241) BASOPHILS ABSOLUTE COUNT (BEAKER) (test 0.01 K/ L 0.01-0.08 lkug=899) IMMATURE GRANULOCYTES-RELATIVE PERCENT (BEAKER) 0 % 0-1 (test urwt=9710) POCT-GLUCOSE [id number] 00:11:00 Test Item Value Reference Range Comments POC-GLUCOSE METER (BEAKER) 86 mg/dL 70-110 TESTED AT [address] (test igkq=4475) [place] [address] HEMOGLOBIN AND [id number] 18:56:00 Test Item Value Reference Range Comments HEMOGLOBIN (BEAKER) (test vqxg=468) 9.1 GM/DL 11.2-15.7 HEMATOCRIT (BEAKER) (test dbif=983) 29.7 % 34.1-44.9 POCT-GLUCOSE [id number] 18:46:00 Test Item Value Reference Range Comments POC-GLUCOSE METER (BEAKER) 95 mg/dL 70-110 TESTED AT [address] (test kiyg=9257) [place] [address] HEPATITIS B SURFACE [id number] 16:30:00 Test Item Value Reference Range Comments HEPATITIS B SURFACE ANTIGEN (2) (BEAKER) (test Nonreactive Nonreactive krrw=0679) RESPIRATORY PANEL [id number] 10:45:00 Test Item Value Reference Range Comments HUMAN METAPNEUMOVIRUS (BEAKER) (test Not detected Not detected, Equivocal kjnt=2690) RHINOVIRUS (BEAKER) (test knij=1531) Not detected Not detected, Equivocal INFLUENZA A (BEAKER) (test rgzb=9109) Not detected Not detected, Equivocal INFLUENZA A (NO SUBTYPE) (test Not detected, Equivocal lzln=1149) INFLUENZA A SUBTYPE H1 (BEAKER) (test Not detected, Equivocal nuzq=9917) INFLUENZA A SUBTYPE H3 (BEAKER) (test Not detected, Equivocal uaje=5113) INFLUENZA A SUBTYPE H1-2009 (BEAKER) Not detected, Equivocal (test hpaa=9259) INFLUENZA B (BEAKER) (test towc=5467) Not detected Not detected, Equivocal RESPIRATORY SYNCYTIAL VIRUS (BEAKER) Not detected Not detected, Equivocal (test hjee=2024) PARAINFLUENZA VIRUS 1 (BEAKER) (test Not detected Not detected, Equivocal eotz=7415) PARAINFLUENZA VIRUS 2 (BEAKER) (test Not detected Not detected, Equivocal tkqi=5122) PARAINFLUENZA VIRUS 3 (BEAKER) (test Not detected Not detected, Equivocal agxy=2355) PARAINFLUENZA VIRUS 4 (BEAKER) (test Not detected Not detected, Equivocal qrbn=7737) ADENOVIRUS (BEAKER) (test bivn=7752) Not detected Not detected, Equivocal CORONAVIRUS 229E (BEAKER) (test Not detected Not detected, Equivocal vgvd=2454) CORONAVIRUS HKU1 (BEAKER) (test Not detected Not detected, Equivocal zmvv=5696) CORONAVIRUS NL63 (BEAKER) (test Not detected Not detected, Equivocal ecgf=2445) CORONAVIRUS OC43 (BEAKER) (test Not detected Not detected, Equivocal nuwt=3695) BORDETELLA PERTUSSIS (BEAKER) (test Not detected Not detected, Equivocal fwec=6358) CHLAMYDOPHILA PNEUMONIAE (BEAKER) (test Not detected Not detected, Equivocal ebeg=4942) MYCOPLASMA PNEUMONIAE (BEAKER) (test Not detected Not detected, Equivocal szde=5730) Other viruses and bacteria not targeted by this PCR panel cannot be excluded; therefore clinical correlation and follow up of serology, culture results, and other molecular studies is required. The results are not intended to be used as the sole means for clinical diagnosis or patient management decisions. This sample was tested at the [facility] Molecular Diagnostics Laboratory using the RadiumOneArray Respiratory Panel. It is FDA cleared and has been verified and approved by the [facility] Molecular Diagnostics Laboratory for clinical use on nasal swab specimens. It is not FDA-cleared for use on bronchial wash/lavage samples. However, for this sample type, validation was performed and test characteristics were determined and approved, by [facility] laboratory for clinical use under the Clinical Laboratory Improvement Amendments (CLIA) of 1988 requirements. Therefore, FDA clearance isnot required. This laboratory is CLIA-certified and [employer] ([employer])-accredited to perform high complexity testing.RAD, CHEST, 1 VIEW, NON [id number] 09:56:00Reason for exam:->ett locationShould this be performed [...] CJeport Verified Date/Time: 05/07/2018 09:56:07 Reading Location: [facility] Radiology Reading Room Electronically signed by: MASSIMO HOPKINS M.D. on 09:56 AMBLOOD GAS, [id number] 09:31:00 Test Item Value Reference Range Comments PH VENOUS (BEAKER) (test rcsb=184) 7.41 7.32-7.42 PCO2 VENOUS (BEAKER) (test vipp=891) 41 mmHg 41-51 PO2 VENOUS (BEAKER) (test bgmp=812) 26 mmHg 25-40 O2 SATURATION VENOUS (BEAKER) (test alub=630) 47.9 % 40.0-70.0 HCO3 VENOUS (BEAKER) (test avos=684) 25 mmol/L 21-29 BASE EXCESS VENOUS (BEAKER) (test aggd=211) 0.4 mmol/L -2.0-3.0 PATIENT TEMPERATURE (BEAKER) (test uzmb=3538) 37.0 C FIO2 (BEAKER) (test lahe=2691) 30.0 % VANCOMYCIN LEVEL, [id number] 06:44:00 Test Item Value Reference Range Comments VANCOMYCIN RANDOM (BEAKER) (test ofny=559) 21.7 ug/mL Reference Range: No NormalsTROPONIN [id number] 06:39:00 Test Item Value Reference Range Comments TROPONIN I (BEAKER) (test jqlz=299) 0.28 ng/mL 0.00-0.03 Troponin I (TnI) levels [...] acute neurological disease, and persistent tachyarrhythmia.BASIC METABOLIC [id number] 06:32:00 Test Item Value Reference Range Comments SODIUM (BEAKER) (test 130 meq/L 136-145 excc=098) POTASSIUM (BEAKER) (test 4.5 meq/L 3.5-5.1 utwm=350) CHLORIDE (BEAKER) (test 96 meq/L 98-107 fapc=679) CO2 (BEAKER) (test 22 meq/L 22-29 kxfh=034) BLOOD UREA NITROGEN 39 mg/dL 7-21 (BEAKER) (test hysm=826) CREATININE (BEAKER) (test 4.39 mg/dL 0.57-1.25 qphf=346) GLUCOSE RANDOM (BEAKER) 86 mg/dL 70-105 (test qmdw=269) CALCIUM (BEAKER) (test 8.7 mg/dL 8.4-10.2 znpr=783) EGFR (BEAKER) (test 10 mL/min/1.73 sq m ESTIMATED GFR IS NOT rryg=3536) ACCURATE CREATININE CLEARANCE IN PREDICTING GLOMERULAR FILTRATION RATE. ESTIMATED GFR IS NOT APPLICABLE FOR DIALYSIS PATIENTS. [id number] 06:27:00 Test Item Value Reference Range Comments MAGNESIUM (BEAKER) (test hsch=161) 1.7 mg/dL 1.6-2.6 LACTIC ACID, [id number] 06:20:00 Test Item Value Reference Range Comments LACTATE BLOOD VENOUS (2) 0.6 mmol/L 0.5-2.2 Specimen slightly hemolyzed (BEAKER) (test pdqj=6923) CBC W/PLT COUNT & AUTO [id number] 06:18:00 Test Item Value Reference Range Comments WHITE BLOOD CELL COUNT (BEAKER) (test varj=021) 6.0 K/ L 3.5-10.5 RED BLOOD CELL COUNT (BEAKER) (test prsf=452) 3.08 M/ L 3.93-5.22 HEMOGLOBIN (BEAKER) (test kygn=078) 9.2 GM/DL 11.2-15.7 HEMATOCRIT (BEAKER) (test peyc=475) 30.2 % 34.1-44.9 MEAN CORPUSCULAR VOLUME (BEAKER) (test mcal=121) 98.1 fL 79.4-94.8 MEAN CORPUSCULAR HEMOGLOBIN (BEAKER) (test 29.9 pg 25.6-32.2 mqba=942) MEAN CORPUSCULAR HEMOGLOBIN CONC (BEAKER) (test 30.5 GM/DL 32.2-35.5 brbg=761) RED CELL DISTRIBUTION WIDTH (BEAKER) (test 21.1 % 11.7-14.4 jnwq=753) PLATELET COUNT (BEAKER) (test vsqf=561) 150 K/CU MM 150-450 MEAN PLATELET VOLUME (BEAKER) (test hkxe=809) 10.2 fL 9.4-12.3 NUCLEATED RED BLOOD CELLS (BEAKER) (test 0 /100 WBC 0-0 eulw=462) NEUTROPHILS RELATIVE PERCENT (BEAKER) (test 92 % agvz=541) LYMPHOCYTES RELATIVE PERCENT (BEAKER) (test 6 % kuej=832) MONOCYTES RELATIVE PERCENT (BEAKER) (test 2 % awtp=117) EOSINOPHILS RELATIVE PERCENT (BEAKER) (test 0 % vxfv=587) BASOPHILS RELATIVE PERCENT (BEAKER) (test 0 % siag=404) NEUTROPHILS ABSOLUTE COUNT (BEAKER) (test 5.52 K/ L 1.56-6.13 gbby=462) LYMPHOCYTES ABSOLUTE COUNT (BEAKER) (test 0.33 K/ L 1.18-3.74 prjw=216) MONOCYTES ABSOLUTE COUNT (BEAKER) (test 0.10 K/ L 0.24-0.36 qiea=365) EOSINOPHILS ABSOLUTE COUNT (BEAKER) (test 0.02 K/ L 0.04-0.36 wldj=858) BASOPHILS ABSOLUTE COUNT (BEAKER) (test 0.01 K/ L 0.01-0.08 dfua=180) IMMATURE GRANULOCYTES-RELATIVE PERCENT (BEAKER) 1 % 0-1 (test mcsk=3301) B-TYPE NATRIURETIC FACTOR (BNP)2018-05-07 00:58:00 Test Item Value Reference Range Comments B-TYPE NATRIURETIC PEPTIDE (BEAKER) (test 4061 pg/mL 0-100 dmhh=604) URINALYSIS W/ REFLEX URINE [id number] 00:39:00 Test Item Value Reference Range Comments COLOR (BEAKER) (test qbsk=015) Red CLARITY (BEAKER) (test tlom=780) Cloudy SPECIFIC GRAVITY UA (BEAKER) (test xsqs=976) 1.015 1.001-1.035 PH UA (BEAKER) (test uqtk=386) 5.0 5.0-8.0 PROTEIN UA (BEAKER) (test bauh=343) 70 mg/dL Negative GLUCOSE UA (BEAKER) (test jsvn=772) Negative Negative KETONES UA (BEAKER) (test shdu=928) Negative Negative BILIRUBIN UA (BEAKER) (test ozsj=536) Negative Negative BLOOD UA (BEAKER) (test legn=570) Large Negative NITRITE UA (BEAKER) (test hryr=980) Negative Negative LEUKOCYTE ESTERASE UA (BEAKER) (test lnjh=813) Moderate Negative UROBILINOGEN UA (BEAKER) (test tfrx=098) 0.2 mg/dL 0.2-1.0 RBC UA (BEAKER) (test srir=268) 4889 /HPF WBC UA (BEAKER) (test zxsf=127) 206 /HPF BACTERIA (BEAKER) (test ajyz=220) Moderate SQUAMOUS EPITHELIAL (BEAKER) (test xlec=299) 11 /HPF SOURCE(BEAKER) (test hxwv=7018) TROPONIN [id number] 00:17:00 Test Item Value Reference Range Comments TROPONIN I (BEAKER) (test pwku=345) 0.24 ng/mL 0.00-0.03 Troponin I (TnI) levels [...] acute neurological disease, and persistent tachyarrhythmia.BLOOD GAS, [id number] 23:50:00 Test Item Value Reference Range Comments PH ARTERIAL (BEAKER) (test bbes=960) 7.31 7.35-7.45 PCO2 ARTERIAL (BEAKER) (test tolv=303) 51 mmHg 35-45 PO2 ARTERIAL (BEAKER) (test lfxb=921) 93 mmHg 80-90 O2 SATURATION ARTERIAL (BEAKER) (test bybc=627) 96.2 % 96.0-97.0 HCO3 ARTERIAL (BEAKER) (test hlqt=487) 25 mmol/L 21-29 BASE EXCESS ARTERIAL (BEAKER) (test ffzv=635) -1.2 mmol/L -2.0-3.0 PATIENT TEMPERATURE (BEAKER) (test zbxq=0988) 37.5 C FIO2 (BEAKER) (test ekib=0629) 40.0 % RAD, CHEST, 1 VIEW, NON [id number] 23:28:00Reason for exam:->respiratory failure, arrived intubatedFINAL REPORT [...] MDReportVerified Date/Time: 05/06/2018 23:28:30 Reading Location : [facility] Diagnostic Imaging Reading Room - [place] [address] RAD, ABDOMEN/KUB, 1 VIEW [id number] 23:28:00Reason for exam:->intubated, NGT from OShould this [...] MDReportVerified Date/Time: 05/06/2018 23:28:30 Reading Location : [facility] Diagnostic Imaging Reading Room - [place] [address] COMPREHENSIVE METABOLIC [id number] 23:04:00 Test Item Value Reference Range Comments TOTAL PROTEIN (BEAKER) 4.9 gm/dL 6.0-8.3 (test yoax=035) ALBUMIN (BEAKER) (test 3.1 g/dL 3.5-5.0 ookb=9021) ALKALINE PHOSPHATASE 132 U/L 40-150 (BEAKER) (test ijzz=894) BILIRUBIN TOTAL (BEAKER) 0.5 mg/dL 0.2-1.2 (test xmrn=378) SODIUM (BEAKER) (test 130 meq/L 136-145 ptmt=128) POTASSIUM (BEAKER) (test 4.4 meq/L 3.5-5.1 slen=347) CHLORIDE (BEAKER) (test 96 meq/L 98-107 qqtk=700) CO2 (BEAKER) (test 24 meq/L 22-29 imro=705) BLOOD UREA NITROGEN 13 mg/dL 7-21 (BEAKER) (test zxww=743) CREATININE (BEAKER) (test 4.33 mg/dL 0.57-1.25 ueka=325) GLUCOSE RANDOM (BEAKER) 85 mg/dL 70-105 (test dpkj=870) CALCIUM (BEAKER) (test 8.8 mg/dL 8.4-10.2 lzsi=015) AST (SGOT) (BEAKER) (test 27 U/L 5-34 gqkt=461) ALT (SGPT) (BEAKER) (test 25 U/L 6-55 snfe=059) EGFR (BEAKER) (test 10 mL/min/1.73 sq m ESTIMATED GFR IS NOT srpz=9986) ACCURATE CREATININE CLEARANCE IN PREDICTING GLOMERULAR FILTRATION RATE. ESTIMATED GFR IS NOT APPLICABLE FOR DIALYSIS PATIENTS. PT/[id number] 23:01:00 Test Item Value Reference Range Comments PROTIME (BEAKER) (test erso=404) 14.9 seconds 11.7-14.7 INR (BEAKER) (test fzhn=703) 1.2 <=5.9 PARTIAL THROMBOPLASTIN TIME (BEAKER) (test 32.0 seconds 22.5-36.0 dfob=164) RECOMMENDED COUMADIN/WARFARIN INR THERAPY RANGESSTANDARD DOSE: 2.0 - 3.0 Includes: PROPHYLAXIS forvenous thrombosis, systemic embolization; TREATMENT for venous thrombosis and/or pulmonary embolus.HIGH RISK: Target INR is 2.5-3.5 for patients with mechanical heart valves.POCT-GLUCOSE [id number] 22:56:00 Test Item Value Reference Range Comments POC-GLUCOSE METER (BEAKER) 96 mg/dL 70-[address] [facility] [address] [facility] (test kzjs=5128) [facility] [address] [id number] 22:55:00 Test Item Value Reference Range Comments MAGNESIUM (BEAKER) (test dfuq=659) 2.2 mg/dL 1.6-2.6 LACTIC ACID, [id number] 22:55:00 Test Item Value Reference Range Comments LACTATE BLOOD ARTERIAL (2) (BEAKER) (test 0.8 mmol/L 0.5-2.2 uxcu=1105) CBC W/PLT COUNT & AUTO [id number] 22:51:00 Test Item Value Reference Range Comments WHITE BLOOD CELL COUNT (BEAKER) (test uilp=603) 7.8 K/ L 3.5-10.5 RED BLOOD CELL COUNT (BEAKER) (test xvqm=170) 3.20 M/ L 3.93-5.22 HEMOGLOBIN (BEAKER) (test jdhp=632) 9.3 GM/DL 11.2-15.7 HEMATOCRIT (BEAKER) (test lrng=785) 31.7 % 34.1-44.9 MEAN CORPUSCULAR VOLUME (BEAKER) (test uigq=288) 99.1 fL 79.4-94.8 MEAN CORPUSCULAR HEMOGLOBIN (BEAKER) (test 29.1 pg 25.6-32.2 nhyx=340) MEAN CORPUSCULAR HEMOGLOBIN CONC (BEAKER) (test 29.3 GM/DL 32.2-35.5 vhfj=012) RED CELL DISTRIBUTION WIDTH (BEAKER) (test 21.0 % 11.7-14.4 fjin=065) PLATELET COUNT (BEAKER) (test ecgc=412) 149 K/CU MM 150-450 MEAN PLATELET VOLUME (BEAKER) (test dssc=051) 10.4 fL 9.4-12.3 NUCLEATED RED BLOOD CELLS (BEAKER) (test 0 /100 WBC 0-0 wfwi=455) NEUTROPHILS RELATIVE PERCENT (BEAKER) (test 80 % sbhx=030) LYMPHOCYTES RELATIVE PERCENT (BEAKER) (test 8 % gnmz=879) MONOCYTES RELATIVE PERCENT (BEAKER) (test 9 % ayqv=239) EOSINOPHILS RELATIVE PERCENT (BEAKER) (test 3 % lcvh=807) BASOPHILS RELATIVE PERCENT (BEAKER) (test 0 % ubto=174) NEUTROPHILS ABSOLUTE COUNT (BEAKER) (test 6.24 K/ L 1.56-6.13 oiln=308) LYMPHOCYTES ABSOLUTE COUNT (BEAKER) (test 0.60 K/ L 1.18-3.74 hqqu=384) MONOCYTES ABSOLUTE COUNT (BEAKER) (test 0.72 K/ L 0.24-0.36 gbyi=991) EOSINOPHILS ABSOLUTE COUNT (BEAKER) (test 0.20 K/ L 0.04-0.36 lund=851) BASOPHILS ABSOLUTE COUNT (BEAKER) (test 0.01 K/ L 0.01-0.08 gpfh=474) IMMATURE GRANULOCYTES-RELATIVE PERCENT (BEAKER) 0 % 0-1 (test lryt=6942) OXYGEN SATURATION, [id number] 22:44:00 Test Item Value Reference Range Comments O2 SATURATION (MEASURED) (BEAKER) (test atkx=6609) 70.8 % B-TYPE NATRIURETIC [id number] 08:19:00 Test Item Value Reference Range Comments B-TYPE NATRIURETIC PEPTIDE (test code=BNP) > 5000.0 PG/ML 0-100 BASIC METABOLIC [id number] 08:04:00 Test Item Value Reference Range Comments [...] (test code=CA) 9.1 MG/DL 8.4-10.2 CBC W/AUTO [id number] 07:51:00 Test Item Value Reference Range Comments [...] 2 ng/mL are obtained. - XR CHEST [id number] 07:52:00 Patient Name: DALJIT JOHNSON Unit No: [id number] EXAMS: CPT CODE: [id number] XR CHEST 1V [id number] EXAM: Portable chest x-ray Location: COMPARISON: Chest [...] Turk MD CC: Cas Aguayo; FIGUEROA BROOKS PROFILER OPERATOR Technologist: Sandra Greenfield RT(R); Yadira Faulkner RT(R) Transcrpt Date/Tm/Trnsp: 04/16/2018 (0752) t.BRISSAR.BC0 Orig Print D/T: S: 04/16/2018 (0755) [facility] NAME: DALJIT JOHNSON [address] [address] PHYS: THOJO.04 - [place] [address] : 1930 AGE: 88 SEX: F LOC: Z.I12 A PHONE #: [phone] EXAM DATE: 04/16/2018 STATUS: ADM IN FAX #: [phone] RADIOLOGY NO: PAGE 1 Signed ReportBASIC METABOLIC [id number] 05:30:00 Test Item Value Reference Range Comments [...] (test code=CA) 9.2 MG/DL 8.4-10.2 CBC W/AUTO [id number] 05:06:00 Test Item Value Reference Range Comments [...] (test code=NRBC#) 0.00 K/mm3 0.0-0.1 BASIC METABOLIC [id number] 05:41:00 Test Item Value Reference Range Comments [...] 0.52-1.04 CALCIUM (test code=CA) 10.2 MG/DL 8.4-10.2 [id number] 05:41:00 Test Item Value Reference Range Comments PHOSPHOROUS (test code=PHOS) 3.4 MG/DL 2.5-4.5 [id number] 05:41:00 Test Item Value Reference Range Comments MAGNESIUM (test code=MAG) 2.0 MG/DL 1.6-2.3 CBC W/AUTO [id number] 05:16:00 Test Item Value Reference Range Comments [...] # (test code=NRBC#) 0.0 K/mm3 0.0-0.1 CPK-MB [id number] 00:30:00 Test Item Value Reference Range Comments CREATINE KINASE (CK) (test code=CK) 43 UNITS/L 30-135 CKMB (test code=CKMBT) 2.63 NG/ML 0.0-5.6 CKMB INDEX (test code=CKMBI) 6.1 % 4.0-4.4 [id number] 00:30:00 Test Item Value Reference Range Comments TROPONIN-I (test 0.517 NG/ML 0.012-0.033 CALLED TO JESSICA Virk& code=TROPI) READBACK ON 04/15/18 AT 0030 BY Antelmo Mena HGB [id number] 00:05:00 Test Item Value Reference Range Comments HEMOGLOBIN (test code=HGB) 9.8 G/DL 11.2-14.9 HEMATOCRIT (test code=HCT) 31.5 % 33.2-43.5 CPK-MB [id number] 20:46:00 Test Item Value Reference Range Comments CREATINE KINASE (CK) (test code=CK) 43 UNITS/L 30-135 CKMB (test code=CKMBT) 2.63 NG/ML 0.0-5.6 CKMB INDEX (test code=CKMBI) 6.1 % 4.0-4.4 [id number] 20:46:00 Test Item Value Reference Range Comments TROPONIN-I (test 0.460 NG/ML 0.012-0.033 CALLED TO JESSICA Virk& code=TROPI) READBACK ON 04/14/18 AT 2046 BY Maya Parker CPK-MB [id number] 20:30:00 Test Item Value Reference Range Comments CREATINE KINASE (CK) (test code=CK) 43 UNITS/L 30-135 CKMB (test code=CKMBT) NG/ML 0.0-5.6 CKMB INDEX (test code=CKMBI) % 4.0-4.4 [id number] 20:30:00 Test Item Value Reference Range Comments TROPONIN-I (test code=TROPI) NG/ML 0.0-0.045 LACTIC [id number] 17:43:00 Test Item Value Reference Range Comments LACTIC ACID (test code=LACT) 0.8 MMOL/L 0.7-2.1 CPK-MB [id number] 14:06:00 Test Item Value Reference Range Comments CREATINE KINASE (CK) (test code=CK) 49 UNITS/L 30-135 CKMB (test code=CKMBT) 3.88 NG/ML 0.0-5.6 CKMB INDEX (test code=CKMBI) 7.9 % 4.0-4.4 [id number] 14:06:00 Test Item Value Reference Range Comments TROPONIN-I (test 0.248 NG/ML 0.012-0.033 CALLED TO FAITH.Adonay& READBACK ON code=TROPI) 04/14/18 AT 1405 BY Mike Perez LACTIC [id number] 13:49:00 Test Item Value Reference Range Comments LACTIC ACID (test code=LACT) 0.9 MMOL/L 0.7-2.1 CPK-MB [id number] 13:49:00 Test Item Value Reference Range Comments CREATINE KINASE (CK) (test code=CK) 49 UNITS/L 30-135 CKMB (test code=CKMBT) NG/ML 0.0-5.6 CKMB INDEX (test code=CKMBI) % 4.0-4.4 [id number] 13:49:00 Test Item Value Reference Range Comments TROPONIN-I (test code=TROPI) NG/ML 0.0-0.045 PROTHROMBIN [id number] 11:52:00 Test Item Value Reference Range Comments [...] 04/14/18 AT 1052 BY Franchesca GarrisonVE METABOLIC [id number] 11:38:00 Test Item Value Reference Range Comments [...] ALKALINE PHOSPHATASE (test 70 UNITS/L 38-126 code=ALKP) [id number] 11:38:00 Test Item Value Reference Range Comments PHOSPHOROUS (test code=PHOS) 3.0 MG/DL 2.5-4.5 [id number] 11:38:00 Test Item Value Reference Range Comments MAGNESIUM (test code=MAG) 2.0 MG/DL 1.6-2.3 LIPOPROTEIN LDL [id number] 11:38:00 Test Item Value Reference Range Comments LIPOPROTEIN LDL DIRECT (test 40 mg/dL 100-129 code=LDLDIR) ===Reference Interval: mg/dL mmol/L ---------Optimal <100 <2.6Near/above optimal 100-129 2.6-3.3Borderline High 130-159 3.4-4.1High 160-189 4.1-4.9Very High >=190 >=4.9=========This LDL result is a direct measurement.========= CPK-MB [id number] 11:38:00 Test Item Value Reference Range Comments CREATINE KINASE (CK) (test code=CK) 51 UNITS/L 30-135 CKMB (test code=CKMBT) 3.07 NG/ML 0.0-5.6 CKMB INDEX (test code=CKMBI) 6.0 % 4.0-4.4 [id number] 11:38:00 Test Item Value Reference Range Comments [...] < 2 ng/mL are obtained. COMPREHENSIVE METABOLIC [id number] 11:27:00 Test Item Value Reference Range Comments [...] ALKALINE PHOSPHATASE (test 70 UNITS/L 38-126 code=ALKP) [id number] 11:27:00 Test Item Value Reference Range Comments PHOSPHOROUS (test code=PHOS) 3.0 MG/DL 2.5-4.5 [id number] 11:27:00 Test Item Value Reference Range Comments MAGNESIUM (test code=MAG) 2.0 MG/DL 1.6-2.3 LIPOPROTEIN LDL [id number] 11:27:00 Test Item Value Reference Range Comments LIPOPROTEIN LDL DIRECT (test code=LDLDIR) mg/dL 100-129 CPK-MB [id number] 11:27:00 Test Item Value Reference Range Comments CREATINE KINASE (CK) (test code=CK) 51 UNITS/L 30-135 CKMB (test code=CKMBT) 3.07 NG/ML 0.0-5.6 CKMB INDEX (test code=CKMBI) 6.0 % 4.0-4.4 [id number] 11:27:00 Test Item Value Reference Range Comments [...] < 2 ng/mL are obtained. COMPREHENSIVE METABOLIC [id number] 10:29:00 Test Item Value Reference Range Comments [...] ALKALINE PHOSPHATASE (test 70 UNITS/L 38-126 code=ALKP) [id number] 10:29:00 Test Item Value Reference Range Comments PHOSPHOROUS (test code=PHOS) 3.0 MG/DL 2.5-4.5 [id number] 10:29:00 Test Item Value Reference Range Comments MAGNESIUM (test code=MAG) 2.0 MG/DL 1.6-2.3 LIPOPROTEIN LDL [id number] 10:29:00 Test Item Value Reference Range Comments LIPOPROTEIN LDL DIRECT (test code=LDLDIR) mg/dL 100-129 CPK-MB [id number] 10:29:00 Test Item Value Reference Range Comments CREATINE KINASE (CK) (test code=CK) 51 UNITS/L 30-135 CKMB (test code=CKMBT) 3.07 NG/ML 0.0-5.6 CKMB INDEX (test code=CKMBI) 6.0 % 4.0-4.4 [id number] 10:29:00 Test Item Value Reference Range Comments TROPONIN-I (test code=TROPI) 0.091 NG/ML 0.012-0.033 PROCALCITONIN (PCT)2018-04-14 10:29:00 Test Item Value Reference Range Comments PROCALCITONIN (PCT) (test code=PROCAL) NG/ML LACTIC [id number] 10:08:00 Test Item Value Reference Range Comments LACTIC ACID (test code=LACT) 2.6 MMOL/L 0.7-2.1 CBC W/AUTO [id number] 09:43:00 Test Item Value Reference Range Comments [...] (test code=NRBC#) 0.0 K/mm3 0.0-0.1 ARTERIAL BLOOD [id number] 08:51:00 Test Item Value Reference Range Comments [...] (test code=COHBGFFIO2) 80 % - XR CHEST [id number] 08:07:00 Patient Name: DALJIT JOHNSON Unit No: [id number] EXAMS: CPT CODE: [id number] XR CHEST 1V 56990 Location: U19. CHEST, FRONTAL VIEW HISTORY: CODE [...] tJanuarySDR.SP17 Orig Print D/T: S: 04/14/2018 (0810) [facility] NAME: DALJIT JOHNSON [address] [address] PHYS: [place] [address] : 1930 AGE: 88 SEX: F LOC: Z.I12 A PHONE #: [phone] EXAM DATE: 04/14/2018 STATUS: ADM IN FAX #: [phone] RADIOLOGY NO: PAGE 1 Signed ReportGLUCOSE BEDSIDE [id number] 07:26:00 Test Item Value Reference Range Comments GLUCOSE BEDSIDE TESTING (test code=GLUBED) 97 MG/DL 60-99 BASIC METABOLIC [id number] 06:28:00 Test Item Value Reference Range Comments [...] 0.52-1.04 CALCIUM (test code=CA) 8.7 MG/DL 8.4-10.2 [id number] 06:28:00 Test Item Value Reference Range Comments PHOSPHOROUS (test code=PHOS) 3.5 MG/DL 2.5-4.5 [id number] 06:28:00 Test Item Value Reference Range Comments MAGNESIUM (test code=MAG) 1.9 MG/DL 1.6-2.3 CBC W/AUTO [id number] 05:47:00 Test Item Value Reference Range Comments [...] code=NRBC#) 0.0 K/mm3 0.0-0.1 - XR CHEST [id number] 08:19:00 Patient Name: DALJIT JOHNSON Unit No: [id number] EXAMS: CPT CODE: [id number] XR CHEST 1V 70028 LOCATION: T18 EXAM: CHEST 1 VIEW INDICATION: [...] t.SDR.JP19 Orig Print D/T: S: 04/12/2018 (0822) [facility] NAME: DALJIT JOHNSON [facility] [address] [address] PHYS: THOSH.Hemal - [place] [address] : 1930 AGE: 88 SEX: F LOC: Z.358 A PHONE #: [phone] EXAM DATE: STATUS: ADM IN FAX #: [phone] RADIOLOGY NO: PAGE 1 Signed ReportBASIC METABOLIC [id number] 06:15:00 Test Item Value Reference Range [...] (test code=CA) 8.5 MG/DL 8.4-10.2 CBC W/AUTO [id number] 06:01:00 Test Item Value Reference Range Comments [...] (test code=NRBC#) 0.0 K/mm3 0.0-0.1 COMPREHENSIVE METABOLIC [id number] 07:44:00 Test Item Value Reference Range Comments [...] ALKALINE PHOSPHATASE (test 58 UNITS/L 38-126 code=ALKP) [id number] 07:44:00 Test Item Value Reference Range Comments PHOSPHOROUS (test code=PHOS) 4.0 MG/DL 2.5-4.5 [id number] 07:44:00 Test Item Value Reference Range Comments MAGNESIUM (test code=MAG) 1.9 MG/DL 1.6-2.3 B-TYPE NATRIURETIC [id number] 07:38:00 Test Item Value Reference Range Comments B-TYPE NATRIURETIC PEPTIDE (test code=BNP) > 5000.0 PG/ML 0-100 CBC W/AUTO [id number] 07:10:00 Test Item Value Reference Range Comments [...] (test code=NRBC#) 0.0 K/mm3 0.0-0.1 B-TYPE NATRIURETIC [id number] 07:57:00 Test Item Value Reference Range Comments B-TYPE NATRIURETIC PEPTIDE (test code=BNP) > 5000.0 PG/ML 0-100 BASIC METABOLIC [id number] 07:42:00 Test Item Value Reference Range Comments [...] (test code=CA) 8.6 MG/DL 8.4-10.2 CBC W/AUTO [id number] 07:17:00 Test Item Value Reference Range Comments [...] code=NRBC#) 0.0 K/mm3 0.0-0.1 - XR CHEST [id number] 06:50:00 Patient Name: DALJIT JOHNSON Unit No: [id number] EXAMS: CPT CODE: [id number] XR CHEST 1V 19192 Exam: Chest portable erect Location: F6 History: [...] Carrera NP Technologist: Desiree Flores (RT ) ([facility]) Transcrpt Date/Tm/Trnsp: 04/10/2018 (0622) [place] Orig Print D/T: S: 04/10/2018 (0654) [facility] NAME: DALJIT JOHNSON [address] [address] PHYS: THOSH.Hemla - DeandreAveElodia [place] [address] : 1930 AGE: 88 SEX: F LOC: Z.358 A PHONE #: [phone] EXAM DATE: 04/10/2018 STATUS: ADM IN FAX #: [phone] RADIOLOGY NO: PAGE 1 Signed Report- XR CHEST [id number] 09:10:00 Patient Name: DALJIT JOHNSON Unit No: [id number] EXAMS: CPT CODE: [id number] XR CHEST 1V 24926 LOCATION: T18 EXAM: CHEST 1 VIEW INDICATION: [...] t.SDR.JP19 Orig Print D/T: S: 04/09/2018 (0914) [facility] NAME: DALJIT JOHNSON [address] [address] PHYS: LINETTE Smith [place] [address] : 1930 AGE : 88 SEX: F LOC : Z.358 A PHONE #: [phone] EXAM DATE: 04/09/2018 STATUS : ADM IN FAX #: [phone] RADIOLOGY NO: PAGE 1 Signed ReportBASIC METABOLIC [id number] 05:02:00 Test Item Value Reference Range Comments [...] (test code=CA) 8.6 MG/DL 8.4-10.2 CBC W/AUTO [id number] 04:51:00 Test Item Value Reference Range Comments [...] PATIENT CARE STAFF: JI T- XR CHEST [id number] 07:47:00 Patient Name: DALJIT JOHNSON Unit No: [id number] EXAMS: CPT CODE: [id number] XR CHEST 1V 09404 EXAM: Portable chest x-ray Location: B2 COMPARISON: [...] RomyBC0 Orig Print D/T: S: 2018 (0750) [facility] NAME: DALJIT JOHNSON [address] [address] [facility]YS: [facility] [place] [address] : 1930 AGE: 88 SEX: F LOC: Nadege Michaud PHONE #: [phone] EXAM DATE: 04/08/2018 STATUS: ADM IN FAX #: [phone] RADIOLOGY NO: PAGE 1 Signed ReportB-TYPE NATRIURETIC [id number] 06:08:00 Test Item Value Reference Range Comments B-TYPE NATRIURETIC PEPTIDE (test code=BNP) > 5000.0 PG/ML 0-100 BASIC METABOLIC [id number] 05:57:00 Test Item Value Reference Range Comments [...] (test code=CA) 8.2 MG/DL 8.4-10.2 CBC W/AUTO [id number] 05:51:00 Test Item Value Reference Range Comments [...] # (test code=NRBC#) 0.0 K/mm3 0.0-0.1 HGB [id number] 21:32:00 Test Item Value Reference Range Comments HEMOGLOBIN (test code=HGB) 9.0 G/DL 11.2-14.9 HEMATOCRIT (test code=HCT) 29.0 % 33.2-43.5 Comments to Silo Worker: POST TRANSFUSIONBASIC METABOLIC [id number] 06:06: 00 Test Item Value Reference Range [...] 0.52-1.04 CALCIUM (test code=CA) 8.3 MG/DL 8.4-10.2 [id number] 06:06:00 Test Item Value Reference Range Comments PHOSPHOROUS (test code=PHOS) 2.8 MG/DL 2.5-4.5 [id number] 06:06:00 Test Item Value Reference Range Comments MAGNESIUM (test code=MAG) 2.0 MG/DL 1.6-2.3 B-TYPE NATRIURETIC [id number] 06:05:00 Test Item Value Reference Range Comments B-TYPE NATRIURETIC PEPTIDE (test code=BNP) > 5000.0 PG/ML 0-100 CBC W/AUTO [id number] 05:38:00 Test Item Value Reference Range Comments [...] # (test code=NRBC#) 0.0 K/mm3 0.0-0.1 DIFFERENTIAL [id number] 16:20:00 Test Item Value Reference Range Comments RBC MORPHOLOGY REQUIRED (test code=RBCM) ABNORMAL POLYCHROMASIA (test code=POLC) FEW NONE HYPOCHROMIA (test code=HYPO) SLIGHT NONE POIKILOCYTOSIS (test code=POIK) FEW NONE ANISOCYTOSIS (test code=ANISO) SLIGHT NONE MICROCYTOSIS (test code=MICR) FEW NONE PLATELET ESTIMATE (test code=PLTEST) ADEQUATE ADEQUATE PLATELET MORPHOLOGY (test code=PLTMORPH) NORMAL NORMAL HGB [id number] 16:20:00 Test Item Value Reference Range Comments HEMOGLOBIN (test code=HGB) 5.6 G/DL 11.2-14.9 CALLED TO STANFORD Fuentes RN & READBACK ON 04/05/18 AT 0253 BY Gordo Nolan HEMATOCRIT (test code=HCT) 18.3 % 33.2-43.5 CALLED TO STANFORD Fuentes RN & READBACK ON 04/05/18 AT 0253 BY Gordo Nolan [id number] 12:14:00 Test Item Value Reference Range Comments HEMOGLOBIN (test code=HGB) 8.7 G/DL 11.2-14.9 BASIC METABOLIC [id number] 06:02:00 Test Item Value Reference Range Comments [...] CALCIUM (test code=CA) 8.3 MG/DL 8.4-10.2 PROTHROMBIN [id number] 05:33:00 Test Item Value Reference Range Comments [...] systemic embolism. 3.0 - 4.5 CBC W/AUTO [id number] 05:15:00 Test Item Value Reference Range Comments [...] RBC # (test code=NRBC#) 0.0 K/mm3 0.0-0.1 [id number] 05:11:00 Test Item Value Reference Range Comments HEMOGLOBIN (test code=HGB) 7.6 G/DL 11.2-14.9 [id number] 01:46:00 Test Item Value Reference Range Comments HEMOGLOBIN (test code=HGB) 8.0 G/DL 11.2-14.9 [id number] 18:54:00 Test Item Value Reference Range Comments HEMOGLOBIN (test code=HGB) 8.6 G/DL 11.2-14.9 GLUCOSE BEDSIDE [id number] 13:33:00 Test Item Value Reference Range Comments GLUCOSE BEDSIDE TESTING (test code=GLUBED) 118 MG/DL 60-99 CHEMISTRY 8 [id number] 13:02:00 Test Item Value Reference Range Comments [...] Range: > or=60 ml/min/1.73 m2 CHEMISTRY 8 [id number] 13:02:00 Test Item Value Reference Range Comments [...] Formula)Reference Range: > or=60 ml/min/1.73 m2 PROTHROMBIN [id number] 10:58:00 Test Item Value Reference Range Comments [...] recurrent systemic embolism. 3.0 - 4.5 DIFFERENTIAL [id number] 10:58:00 Test Item Value Reference Range Comments RBC MORPHOLOGY REQUIRED (test code=RBCM) ABNORMAL POLYCHROMASIA (test code=POLC) FEW NONE HYPOCHROMIA (test code=HYPO) SLIGHT NONE ANISOCYTOSIS (test code=ANISO) SLIGHT NONE MICROCYTOSIS (test code=MICR) FEW NONE PLATELET ESTIMATE (test code=PLTEST) ADEQUATE ADEQUATE PLATELET MORPHOLOGY (test code=PLTMORPH) NORMAL NORMAL HGB [id number] 10:58:00 Test Item Value Reference Range Comments HEMOGLOBIN (test code=HGB) 6.0 G/DL 11.2-14.9 CALLED TO Sonia BABB HGB=6.0 & READBACK ON 04/05/18 AT 1016 BY Wander Wu HEMATOCRIT (test code=HCT) 19.4 % 33.2-43.5 CALLED TO Sonia BABB HCT=19.4& READBACK ON 04/05/18 AT 1019 BY Wander Wu DIFFERENTIAL [id number] 10:19:00 Test Item Value Reference Range Comments RBC MORPHOLOGY REQUIRED (test code=RBCM) PLATELET ESTIMATE (test code=PLTEST) ADEQUATE PLATELET MORPHOLOGY (test code=PLTMORPH) NORMAL HGB [id number] 10:19:00 Test Item Value Reference Range Comments HEMOGLOBIN (test code=HGB) 6.0 G/DL 11.2-14.9 CALLED TO Sonia BABB HGB=6.0 & READBACK ON 04/05/18 AT 1016 BY Wander Wu HEMATOCRIT (test code=HCT) 19.4 % 33.2-43.5 CALLED TO Sonia BABB HCT=19.4& READBACK ON 04/05/18 AT 1019 BY Wander Wu DIFFERENTIAL [id number] 10:19:00 Test Item Value Reference Range Comments RBC MORPHOLOGY REQUIRED (test code=RBCM) PLATELET ESTIMATE (test code=PLTEST) ADEQUATE PLATELET MORPHOLOGY (test code=PLTMORPH) NORMAL HGB [id number] 10:19:00 Test Item Value Reference Range Comments HEMOGLOBIN (test code=HGB) 6.0 G/DL 11.2-14.9 CALLED TO Sonia BABB HGB=6.0 & READBACK ON 04/05/18 AT 1016 BY Wander Wu HEMATOCRIT (test code=HCT) 19.4 % 33.2-43.5 CALLED TO Sonia BABB HCT=19.4& READBACK ON 04/05/18 AT 1019 BY Wander Wu AB HEPATITIS B [id number] 09:17:00 Test Item Value Reference Range Comments AB HEPATITIS B SURFACE (test POSITIVE code=HBSAB) CLINICAL INTERPRETATION OF IMMUNE STATUS NEGATIVE: Inconsistent with immunity to HBV infection, less than 5.0 mIU/mL POSITIVE: Consistent with immunity to HBV infection, greater than 10.0 mIU/mL * HEPATITIS B SURF AB, [id number] 09:17:00 Test Item Value Reference Range Comments [...] HBV infection.~~~~~~~~~~~~~~~~~~ ~~~~~~~~~~~~~~~~~~~~~~~~~~~~ ~~~~~~~~~~~~~~ AG HEPATITIS B [id number] 09:17:00 Test Item Value Reference Range Comments AG HEPATITIS B SURFACE (test code=HBSAG) NEGATIVE NONREACTIVE AB HEPATITIS B [id number] 09:05:00 Test Item Value Reference Range Comments AB HEPATITIS B SURFACE (test code=HBSAB) HEPATITIS B SURF AB, [id number] 09:05:00 Test Item Value Reference Range Comments HEPATITIS B SURF AB, QUANT (test code=HBSABQ) mIU/mL AG HEPATITIS B [id number] 09:05:00 Test Item Value Reference Range Comments AG HEPATITIS B SURFACE (test code=HBSAG) NEGATIVE NONREACTIVE PROTHROMBIN [id number] 07:47:00 Test Item Value Reference Range Comments [...] systemic embolism. 3.0 - 4.5 CBC W/AUTO [id number] 06:13:00 Test Item Value Reference Range Comments [...] (test 0.0 K/mm3 0.0-0.1 code=NRBC#) BASIC METABOLIC [id number] 04:43:00 Test Item Value Reference Range Comments [...] (test code=CA) 8.4 MG/DL 8.4-10.2 B-TYPE NATRIURETIC [id number] 03:33:00 Test Item Value Reference Range Comments B-TYPE NATRIURETIC PEPTIDE (test code=BNP) > 5000.0 PG/ML 0-100 DIFFERENTIAL [id number] 03:28:00 Test Item Value Reference Range Comments RBC MORPHOLOGY REQUIRED (test code=RBCM) ABNORMAL POLYCHROMASIA (test code=POLC) FEW NONE HYPOCHROMIA (test code=HYPO) SLIGHT NONE POIKILOCYTOSIS (test code=POIK) FEW NONE ANISOCYTOSIS (test code=ANISO) SLIGHT NONE MICROCYTOSIS (test code=MICR) FEW NONE PLATELET ESTIMATE (test code=PLTEST) ADEQUATE ADEQUATE PLATELET MORPHOLOGY (test code=PLTMORPH) NORMAL HGB [id number] 03:28:00 Test Item Value Reference Range Comments HEMOGLOBIN (test code=HGB) 5.6 G/DL 11.2-14.9 CALLED TO STANFORD Fuentes RN & READBACK ON 04/05/18 AT 0253 BY Gordo Nolan HEMATOCRIT (test code=HCT) 18.3 % 33.2-43.5 CALLED TO STANFORD Fuentes RN & READBACK ON 04/05/18 AT 0253 BY Gordo Nolan DIFFERENTIAL [id number] 02:54:00 Test Item Value Reference Range Comments RBC MORPHOLOGY REQUIRED (test code=RBCM) PLATELET ESTIMATE (test code=PLTEST) ADEQUATE PLATELET MORPHOLOGY (test code=PLTMORPH) NORMAL HGB [id number] 02:54:00 Test Item Value Reference Range Comments HEMOGLOBIN (test code=HGB) 5.6 G/DL 11.2-14.9 CALLED TO STANFORD Fuentes RN & READBACK ON 04/05/18 AT 0253 BY Gordo Nolan HEMATOCRIT (test code=HCT) 18.3 % 33.2-43.5 CALLED TO STANFORD Fuentes RN & READBACK ON 04/05/18 AT 0253 BY Gordo Nolan DIFFERENTIAL [id number] 02:54:00 Test Item Value Reference Range Comments RBC MORPHOLOGY REQUIRED (test code=RBCM) PLATELET ESTIMATE (test code=PLTEST) ADEQUATE PLATELET MORPHOLOGY (test code=PLTMORPH) NORMAL HGB [id number] 02:54:00 Test Item Value Reference Range Comments HEMOGLOBIN (test code=HGB) 5.6 G/DL 11.2-14.9 CALLED TO STANFORD Fuentes RN & READBACK ON 04/05/18 AT 0253 BY Gordo Nolan HEMATOCRIT (test code=HCT) 18.3 % 33.2-43.5 CALLED TO STANFORD Fuentes RN & READBACK ON 04/05/18 AT 025 BY Gordo Nolan CBC W/AUTO [id number] 23:36:00 Test Item Value Reference Range Comments [...] # (test 0.0 K/mm3 0.0-0.1 code=NRBC#) DIFFERENTIAL [id number] 23:36:00 Test Item Value Reference Range Comments RBC MORPHOLOGY REQUIRED (test code=RBCM) ABNORMAL HYPOCHROMIA (test code=HYPO) SLIGHT NONE POIKILOCYTOSIS (test code=POIK) FEW NONE ANISOCYTOSIS (test code=ANISO) SLIGHT NONE MICROCYTOSIS (test code=MICR) FEW NONE TARGET CELLS (test code=TGT) FEW NONE TEAR DROP CELLS (test code=TEAR) FEW NONE PLATELET ESTIMATE (test code=PLTEST) ADEQUATE ADEQUATE PLATELET MORPHOLOGY (test code=PLTMORPH) NORMAL NORMAL PROTHROMBIN [id number] 22:40:00 Test Item Value Reference Range Comments [...] systemic embolism. 3.0 - 4.5 BASIC METABOLIC [id number] 22:38:00 Test Item Value Reference Range Comments [...] (test code=CA) 8.6 MG/DL 8.4-10.2 HEPATIC FUNCTION [id number] 22:38:00 Test Item Value Reference Range Comments TOTAL PROTEIN (test code=PROT) 5.1 G/DL 6.3-8.2 ALBUMIN (test code=ALB) 2.9 G/DL 3.5-5.0 BILIRUBIN TOTAL (test code=BILT) 0.5 MG/DL 0.2-1.3 BILIRUBIN DIRECT (test code=BILD) 0.0 MG/DL 0.0-0.3 SGOT/AST (test code=AST) 42 UNITS/L 14-36 SGPT/ALT (test code=ALT) 43 UNITS/L 9-52 ALKALINE PHOSPHATASE (test code=ALKP) 78 UNITS/L 38-126 [id number] 22:38:00 Test Item Value Reference Range Comments LIPASE (test code=LIP) 308 UNITS/L 23-300 CBC W/AUTO [id number] 22:36:00 Test Item Value Reference Range Comments [...] # (test 0.0 K/mm3 0.0-0.1 code=NRBC#) DIFFERENTIAL [id number] 22:36:00 Test Item Value Reference Range Comments RBC MORPHOLOGY REQUIRED (test code=RBCM) PLATELET ESTIMATE (test code=PLTEST) ADEQUATE PLATELET MORPHOLOGY (test code=PLTMORPH) NORMAL CBC W/AUTO [id number] 22:36:00 Test Item Value Reference Range Comments [...] # (test 0.0 K/mm3 0.0-0.1 code=NRBC#) DIFFERENTIAL [id number] 22:36:00 Test Item Value Reference Range Comments RBC MORPHOLOGY REQUIRED (test code=RBCM) PLATELET ESTIMATE (test code=PLTEST) ADEQUATE PLATELET MORPHOLOGY (test code=PLTMORPH) NORMAL - XR CHEST [id number] 22:34:00 Patient Name: DALJIT JOHNSON Unit No: [id number] EXAMS: CPT CODE: [id number] XR CHEST 1V [id number] AFTER HOURS SERVICE ON: 04/04/2018 10:33 PM [...] 04/04/2018 (2233) [id number] Orig Print D/T: S: ([id number])[facility] NAME: DALJIT JOHNSON [address] [address] PHYS: ROSAURA - [place] [address] : [birth year]AGE: 88 SEX: F LOC: [facility] PHONE #: [phone] EXAM DATE: 04/04/2018 STATUS: REG ER FAX #: [phone] RADIOLOGY NO: PAGE 1 Signed Report
[2018-07-09] MEDS ORDERED: METHYLPREDNISOLONE 125 MG INJ ONE (01:37)
[2018-07-09] MEDS ORDERED: IPRATROPIUM BROM 0.5MG/2.5ML ONE (01:38)
[2018-07-09] MEDS ORDERED: FUROSEMIDE 40 MG/4 ML VIAL ONE (01:38)
[2018-07-09] MEDS ORDERED: ALBUTEROL 2.5 MG/3 ML NEB SOL ONE (01:38)
[2018-07-09 01:53] LABS: Absolute Lymphocytes (CBC) 1.2 K/uL (0.7-4.9); Absolute Monocytes 0.9 K/uL (0.1-1.3); Absolute Neutrophil 7.5 K/uL (1.8-8.0); Basophils % 1.1 % (0-1.3); Eosinophils % 3.3 % (0-4.4); Hematocrit 30.2 % (36.0-45.0); Lymphocytes % 12.4 % (15.3-44.8); MPV 8.5 fL (7.6-11.3); Monocytes % 8.6 % (3.3-12.3); Protime INR 0.96; RBC Red Blood Cell Count 3.16 M/uL (3.86-4.86)
--- NOTE | 2018-07-09 02:17 | EDPHYS ---
Physician Documentation [facility] Name: Bárbara Thakkar Age: 88 yrs Sex: Female : 1930 Arrival Date: 07/09/2018 Time: 01:24 Bed 16 Private MD: ED Physician Cosme Anguiano HPI: 07/09 01:32 This 88 yrs old Female presents to ER via Unassigned with complaints of jr8 Shortness of breath. 01:32 The patient has shortness of breath at rest. Onset: The symptoms/episode began/occurred jr8 acutely, today. Duration: The symptoms are continuous. The patient's shortness of breath is aggravated by light activity, talking, walking. Associated signs and symptoms: The patient has no apparent associated signs or symptoms. Severity of symptoms: At their worst the symptoms were moderate in the emergency department the symptoms are unchanged. It is unknown whether or not the patient has had similar symptoms in the past. The patient has not recently seen a physician. Historical: - Allergies: 02:53 acetylcysteine; ea 02:53 Ciprofloxacin; ea 02:53 Iodinated Contrast Media - IV Dye; ea 02:53 PENICILLINS; ea - Home Meds: 02:53 pravastatin 80 mg Oral tab [Active]; ipratropium-albuterol 0.5 mg-3 mg(2.5 mg base)/3 ea mL Inhl nebu [Active]; carvedilol 3.125 mg Oral tab [Active]; aspirin 81 mg Oral chew [Active]; Anoro Ellipta inhalation [Active]; amiodarone 200 mg Oral tab [Active]; - PMHx: 02:53 Pacemaker; Hypertension; High Cholesterol; COPD; ESRD; Hemodialysis-MWF; ea - PSHx: 02:53 Pacemaker; Dialysis catheter to left upper chest; ea - Immunization history:: Adult Immunizations up to date. - Social history:: Smoking status: Patient/guardian denies using tobacco. - Ebola Screening: : No symptoms or risks identified at this time. ROS: 01:46 Eyes: Negative for injury, pain, redness, and discharge, ENT: Negative for injury, jr8 pain, and discharge, Neck: Negative for injury, pain, and swelling, Cardiovascular: Negative for chest pain, palpitations, and edema, Abdomen/GI: Negative for abdominal pain, nausea, vomiting, diarrhea, and constipation, Back: Negative for injury and pain, MS/Extremity: Negative for injury and deformity, Skin: Negative for injury, rash, and discoloration, Neuro: Negative for headache, weakness, numbness, tingling, and seizure. 01:46 Respiratory: Positive for dyspnea on exertion, shortness of breath, wheezing. Exam: 01:46 Eyes: Pupils equal round and reactive to light, extra-ocular motions intact. Lids and jr8 lashes normal. Conjunctiva and sclera are non-icteric and not injected. Cornea within normal limits. Periorbital areas with no swelling, redness, or edema. ENT: Nares patent. No nasal discharge, no septal abnormalities noted. Tympanic membranes are normal and external auditory canals are clear. Oropharynx with no redness, swelling, or masses, exudates, or evidence of obstruction, uvula midline. Mucous membranes moist. Neck: Trachea midline, no thyromegaly or masses palpated, and no cervical lymphadenopathy. Supple, full range of motion without nuchal rigidity, or vertebral point tenderness. No Meningismus. Cardiovascular: Regular rate and rhythm with a normal S1 and S2. No gallops, murmurs, or rubs. Normal PMI, no JVD. No pulse deficits. Abdomen/GI: Soft, non-tender, with normal bowel sounds. No distension or tympany. No guarding or rebound. No evidence of tenderness throughout. Back: No spinal tenderness. No costovertebral tenderness. Full range of motion. Skin: Warm, dry with normal turgor. Normal color with no rashes, no lesions, and no evidence of cellulitis. MS/ Extremity: Pulses equal, no cyanosis. Neurovascular intact. Full, normal range of motion. Neuro: Awake and alert, GCS 15, oriented to person, place, time, and situation. Cranial nerves II-XII grossly intact. Motor strength 5/5 in all extremities. Sensory grossly intact. Cerebellar exam normal. Normal gait. :46 Respiratory: moderate respiratory distress is noted, Respirations: labored breathing, intercostal retractions, tachypnea, Breath sounds: decreased breath sounds, that are moderate, are located in both bases, wheezing: expiratory that is mild, is heard diffusely. Vital Signs: 01:15 BP 175 / 63; Pulse 59; Resp 32; Temp 97.5; Pulse Ox 100% on Nebulizer Mask; Weight ea 68.04 kg; Height 5 ft. 2 in. (157.48 cm); 02:00 BP 142 / 51; Pulse 60; Resp 24; Pulse Ox 100% on BiPAP; ea 03:00 BP 145 / 49; Pulse 59; Resp 26; Temp 97.6; Pulse Ox 100% on BiPAP; ea 04:07 BP 152 / 58; Pulse 60; Resp 29; Pulse Ox 100% on BiPAP; ea 04:45 BP 148 / 72; Pulse 58; Resp 24; Temp 97.6; Pulse Ox 100% on BiPAP; ea 01:15 Body Mass Index 27.44 (68.04 kg, 157.48 cm) ea MDM: 01:27 Patient medically screened. jr8 01:46 ED course: Patient in respiratory distress, weak, and in need of lasix. Clinically jr8 indicated at this time to utilize [place] as patient cannot use bed pain even to help herself to urinate. . 02:02 Data reviewed: vital signs, nurses notes, lab test result(s), EKG, radiologic studies, jr8 plain films. Data interpreted: Pulse oximetry: on 100% oxygen by non-rebreather, is 98 %. Interpretation: acceptable. Test interpretation: by ED physician or midlevel provider: plain radiologic studies, Chronic interstitial lung disease with CHF. Counseling: I had a detailed discussion with the patient and/or guardian regarding: the historical points, exam findings, and any diagnostic results supporting the discharge/admit diagnosis, lab results, radiology results, the need for further work-up and treatment in the hospital. Response to treatment: the patient's symptoms have mildly improved after treatment. 07/09 00:28 Order name: Basic Metabolic Panel; Complete Time: :07/09:28 Order name: CBC with Diff; Complete Time: 02:07/09:28 Order name: LFT's; Complete Time: 07/09:28 Order name: Magnesium; Complete Time: 07/09:28 Order name: NT PRO-BNP; Complete Time: 48 07/09:28 Order name: PT-INR; Complete Time: 02:00 07/09: Order name: Troponin (emerg Dept Use Only); Complete Time: 02:48 07/09 01:28 Order name: XRAY Chest (1 view) 07/09 01:28 Order name: BIPAP 07/09 01:28 Order name: Blood Culture Adult (2) 07/09 01:28 Order name: Procalcitonin; Complete Time: 02:48 07/09 01:28 Order name: Lactate; Complete Time: 02:17 [facility] 07/09 02:22 Order name: Urine Dipstick--Ancillary (enter results); Complete Time: 03:22 [facility] 07/09 01:28 Order name: EKG; Complete Time: 01:29 07/09 01:28 Order name: Cardiac monitoring; Complete Time: 01:48 07/09 01:28 Order name: EKG - Nurse/Tech; Complete Time: 02:18 07/09 01:28 Order name: IV Saline Lock; Complete Time: 01:48 [facility] 07/09 01:28 Order name: Labs collected and sent; Complete Time: 01:48 07/09 01:28 Order name: O2 Per Protocol; Complete Time: 01:48 07/09 01:28 Order name: O2 Sat Monitoring; Complete Time: 01:48 07/09 02:48 Order name: CONS Physician Consult EDMS 07/09 02:48 Order name: Renal EDMS Administered Medications: 01:25 Drug: Albuterol - atroVENT (3:1) (2.5 mg - 0.5 mg) 3 ml Route: Nebulizer; ea 02:00 Follow up: Response: No adverse reaction ea 01:25 Drug: SOLU-Medrol 125 mg {Note: Right EJ.} Route: IVP; Site: Other; ea 02:10 Follow up: Response: No adverse reaction ea 01:26 Drug: Lasix 40 mg {Note: right EJ.} Route: IVP; Site: Other; ea 02:00 Follow up: Response: No adverse reaction ea Disposition: 06:39 Co-signature as Attending Physician, Cosme Anguiano MD I agree with the assessment and garth plan of care. Disposition: 07/09/18 02:16 Hospitalization ordered by Julio Wilson for Inpatient Admission. Preliminary diagnosis are Chronic obstructive pulmonary disease with (acute) exacerbation, Acute and chronic respiratory failure with hypoxia, Acute systolic (congestive) heart failure. - Bed requested for Telemetry/MedSurg (Inpatient). - Status is Inpatient Admission. ea - Condition is Fair. - Problem is new. - Symptoms have improved. UTI on Admission? No Signatures: Dispatcher [employer] EDCosme Ledezma MD MD cha Roszak, Josh, PA PA jr8 Margarita Hensley RN RN Claire Prasad RN RN ea Corrections: (The following items were deleted from the chart) 03:18 02:16 Hospitalization Ordered by Julio Wilson MD for Inpatient Admission. Preliminary cg diagnosis is Chronic obstructive pulmonary disease with (acute) exacerbation; Acute and chronic respiratory failure with hypoxia; Acute systolic (congestive) heart failure. Bed requested for Telemetry/MedSurg (Inpatient). Status is Inpatient Admission. Condition is Fair. Problem is new. Symptoms have improved. UTI on Admission? No. jr8 05:11 03:18 07/09/2018 02:16 Hospitalization Ordered by Julio Wilson MD for Inpatient ea Admission. Preliminary diagnosis is Chronic obstructive pulmonary disease with (acute) exacerbation; Acute and chronic respiratory failure with hypoxia; Acute systolic (congestive) heart failure. Bed requested for Telemetry/MedSurg (Inpatient). Status is Inpatient Admission. Condition is Fair. Problem is new. Symptoms have improved. UTI on Admission? No. cg
--- NOTE | 2018-07-09 02:17 | ER ---
Nurse's Notes [facility] Name: Bárbara Thakkar Age: 88 yrs Sex: Female : 1930 Arrival Date: 07/09/2018 Time: 01:24 Bed 16 Private MD: Diagnosis: Chronic obstructive pulmonary disease with (acute) exacerbation;Acute and chronic respiratory failure with hypoxia;Acute systolic (congestive) heart failure Presentation: 07/09 01:17 Presenting complaint: EMS states: Pt was came from home, son reports pt started to ea complain of difficulty breathing, reported symptoms worsened within the last few hours. Pt normally on 4 L on O2 per nasal cannula, son reported her sats were in the 90's but she was breathing fast. Transition of care: patient was not received from another setting of care. Onset of symptoms was July 09, 2018. Risk Assessment: Do you want to hurt yourself or someone else? Patient reports no desire to harm self or others. Initial Sepsis Screen: Does the patient meet any 2 criteria? RR > 20 per min. No. Patient's initial sepsis screen is negative. Does the patient have a suspected source of infection? No. Patient's initial sepsis screen is negative. Care prior to arrival: Medication(s) given: Albuterol Neb x 3, Atrovent Neb x 1. 01:17 Method Of Arrival: EMS: [facility] ea 01:51 Acuity: CECE 1 bb Triage Assessment: 01:17 General: Appears uncomfortable, Behavior is restless. Pain: Denies pain. EENT: No signs ea and/or symptoms were reported regarding the EENT system. Neuro: Level of Consciousness is awake, alert, obeys commands, Oriented to person, place, time, situation. Cardiovascular: Patient's skin is warm and dry. Respiratory: Airway is patent Respiratory effort is labored, Respiratory pattern is tachypnea Breath sounds are diminished bilaterally. Breath sounds with wheezes. GI: No signs and/or symptoms were reported involving the gastrointestinal system. : No signs and/or symptoms were reported regarding the genitourinary system. Derm: Skin is clammy, Skin is pale, Skin temperature is warm. Historical: - Allergies: 02:53 acetylcysteine; ea 02:53 Ciprofloxacin; ea 02:53 Iodinated Contrast Media - IV Dye; ea 02:53 PENICILLINS; ea - Home Meds: 02:53 pravastatin 80 mg Oral tab [Active]; ipratropium-albuterol 0.5 mg-3 mg(2.5 mg base)/3 ea mL Inhl nebu [Active]; carvedilol 3.125 mg Oral tab [Active]; aspirin 81 mg Oral chew [Active]; Anoro Ellipta inhalation [Active]; amiodarone 200 mg Oral tab [Active]; - PMHx: 02:53 Pacemaker; Hypertension; High Cholesterol; COPD; ESRD; Hemodialysis-MWF; ea - PSHx: 02:53 Pacemaker; Dialysis catheter to left upper chest; ea - Immunization history:: Adult Immunizations up to date. - Social history:: Smoking status: Patient/guardian denies using tobacco. - Ebola Screening: : No symptoms or risks identified at this time. Screenin:50 Abuse screen: Denies threats or abuse. Nutritional screening: No deficits noted. ea Tuberculosis screening: No symptoms or risk factors identified. Fall Risk IV access (20 points). Assessment: 01:17 Reassessment: see triage assessment. ea 01:23 Reassessment: Respiratory at bedside, pt placed on BiPAP, pt tolerating well. ea 02:49 Reassessment: Patient and/or family updated on plan of care and expected duration. Pain ea level reassessed. Pt alert and oriented x 3. Pt remains on bipap, tolerating well. Pt respiration rate improved. Reports she feels a little better. Awaiting on room assignment. 03:30 Reassessment: Patient and/or family updated on plan of care and expected duration. Pain ea level reassessed. Pt remains on BIPAP, pt tolerating well. Respirations even and symmetrical. Pt denies pain at this time. Awaiting for room assignment. 04:17 Reassessment: Report called to Yareli ARCOS on second floor. ea 04:45 Reassessment: Patient and/or family updated on plan of care and expected duration. Pain ea level reassessed. Patient is alert, oriented x 3, equal unlabored respirations, skin warm/dry/pink. Respiratory at bedside, Pt admitted to second floor, pt left ED via stretcher accompanied by respiratory and nurse. Pt tolerating well. Vital Signs: 01:15 BP 175 / 63; Pulse 59; Resp 32; Temp 97.5; Pulse Ox 100% on Nebulizer Mask; Weight ea 68.04 kg; Height 5 ft. 2 in. (157.48 cm); 02:00 BP 142 / 51; Pulse 60; Resp 24; Pulse Ox 100% on BiPAP; ea 03:00 BP 145 / 49; Pulse 59; Resp 26; Temp 97.6; Pulse Ox 100% on BiPAP; ea 04:07 BP 152 / 58; Pulse 60; Resp 29; Pulse Ox 100% on BiPAP; ea 04:45 BP 148 / 72; Pulse 58; Resp 24; Temp 97.6; Pulse Ox 100% on BiPAP; ea 01:15 Body Mass Index 27.44 (68.04 kg, 157.48 cm) ea ED Course: 01:17 Patient has correct armband on for positive identification. Placed in gown. Bed in low ea position. Side rails up X2. 01:17 Arm band placed on right wrist. Patient placed in an exam room, on a stretcher, on ea oxygen, on change management director, on pulse oximetry. 01:20 Inserted saline lock: 20 gauge in right EJ, using aseptic technique. ,using aseptic bb technique. by Toney COLVIN. 01:24 Patient arrived in ED. tl2 01:27 Toney Tierney PA is PHCP. jr8 01:27 Cosme Anguiano MD is Attending Physician. jr8 01:30 Initial lab(s) drawn, by ED staff, sent to lab. bb 01:47 XRAY Chest (1 view) In Process Unspecified. EDMS 01:48 BIPAP Sent. bb 01:49 [place]dock cath inserted, using sterile technique, 16 Fr., by ED staff, balloon inflated, to bb gravity drainage, urine specimen collected. Patient tolerated well. 01:51 Triage completed. bb 01:54 Claire Prasad, JOSSELYN is Primary Nurse. ea 02:15 Julio Wilson MD is Hospitalizing Provider. jr8 02:51 Patient admitted, IV remains in place. ea 04:04 No provider procedures requiring assistance completed. ea Administered Medications: 01:25 Drug: Albuterol - atroVENT (3:1) (2.5 mg - 0.5 mg) 3 ml Route: Nebulizer; ea 02:00 Follow up: Response: No adverse reaction ea 01:25 Drug: SOLU-Medrol 125 mg {Note: Right EJ.} Route: IVP; Site: Other; ea 02:10 Follow up: Response: No adverse reaction ea 01:26 Drug: Lasix 40 mg {Note: right EJ.} Route: IVP; Site: Other; ea 02:00 Follow up: Response: No adverse reaction ea Outcome: 02:16 Decision to Hospitalize by Provider. jr8 03:00 Instructed on the need for admit. ea 04:50 Admitted to Med/surg accompanied by nurse, via stretcher, with oxygen, on monitor, with ea chart, Other Accompanied by respiratory Report called to Yareli ARCOS 04:50 Condition: stable 04:50 Patient left the ED. ea Signatures: Dispatcher [employer] EDFunmilayo Hanson RN RN Toney Brady PA PA jr8 Darling Palmer RN RN tl2 Claire Prasad RN RN ea Corrections: (The following items were deleted from the chart) 05:13 05:11 Patient left the ED. ea ea
[2018-07-09 02:34] LABS: Bilirubin Direct 0.2 mg/dL (0-0.2); Bilirubin Total 0.3 mg/dL (0.2-1.0); Magnesium 2.6 mg/dL (1.8-2.4); Potassium 4.9 mmol/L (3.5-5.1); Protein, Total 5.8 g/dL (6.4-8.2); Troponin (Emerg Dept Use Only) 0.13 ng/mL (0.0-0.045)
[2018-07-09] MEDS ORDERED: ACETAMINOPHEN 500 MG TAB PO PRN (02:40)
[2018-07-09] MEDS ORDERED: ALPRAZOLAM 0.25 MG TABLET PO PRN (02:40)
[2018-07-09] MEDS: FUROSEMIDE 40 MG/4 ML VIAL IV ONE ×2 (02:40→06:11)
[2018-07-09] MEDS ORDERED: ONDANSETRON 4 MG/2 ML VIAL IV PRN (02:40)
[2018-07-09 03:20] LABS: Urine Blood 3+ (NEG); Urine Glucose NEGATIVE (NEG); Urine Protein 2+ (NEG); Urine pH 5.5 (5.0-7.0)
[2018-07-09 05:14] VITALS: BMI 20.5
--- NOTE | 2018-07-09 06:32 | P.HP ---
Certification for Inpatient Patient admitted to: Observation With expected LOS: <2 Midnights Patient will require the following post-hospital care: None Practitioner: I am a practitioner with admitting privileges, knowledge of patient current condition, hospital course, and medical plan of care. Services: Services provided to patient in accordance with Admission requirements found in Title 42 Section 412.3 of the Code of Federal Regulations Patient History Date of Service: 07/09/18 Reason for admission: Shortness of breath History of Present Illness: Patient is an 88-year-old female who came to the hospital with shortness of breath. Patient goes to dialysis Saturday, Saturday, and Fridays. Patient did not miss any of her dialysis sessions; however, patient feels she may have drink too much fluids. Patient was severely short of breath on arrival. BiPAP placement was done. Afterwards, patient was feeling better. Patient remains on BiPAP we are weaning patient off. Consulted nephrology for hemodialysis. Hopefully, after hemodialysis patient will feel much better and possibly can be discharged home if clinically appears to be doing well. Allergies acetylcysteine [From Mucomyst] Allergy (Mild, Verified 07/09/18 05:03) Shortness of breath Iodinated Contrast- Oral and IV Dye Allergy (Verified 07/09/18 05:03) Itching/Hives/Rash ciprofloxacin Adverse Reaction (Mild, Verified 07/09/18 05:03) muscle spasm Penicillins Adverse Reaction (Mild, Verified 07/09/18 05:03) Itching - Past Medical/Surgical History Has patient received pneumonia vaccine in the past: Yes Diabetic: No -: COPD, Oxygen dependent -: HTN -: Atrial fibrillation, Pacemaker -: GERD -: Chronic anemia -: CAD -: PVD -: Carotid arterial disease -: Hyperlipidemia -: CHF, diastolic dysfunction, moderate pulmonary hypertension -: Permanent Pacemaker to upper rt chest-Sep [address] Narvaez -: Cornary stents -: kidney stents and stents to ea leg -: Bilateral lens implants -: Bilateral carpal tunnel repair -: Hysterectomy -: Appendectomy -: Tonsillectomy Psychosocial/ Personal History: She is . Patient gets home dialysis - Family History Mother Medical History: Heart disease, Diabetes Notes: of [place] Sister Medical History: Diabetes - Social History Smoking Status: Never smoker Alcohol use: No CD- Drugs: No Caffeine use: No Place of Residence: Home Review of Systems 10-point ROS is otherwise unremarkable Physical Examination - Vital Signs Temperature: 98.3 F Blood Pressure: 151/64 Pulse: 60 Respirations: 20 Pulse Ox (%): 99 - Physical Exam General: Alert, In no apparent distress, Oriented x3 HEENT: Atraumatic, PERRLA, Mucous membr. moist/pink, EOMI, Sclerae nonicteric Neck: Supple, 2+ carotid pulse no bruit, No LAD, Without JVD or thyroid abnormality Respiratory: Diminished, Crackles/rales Cardiovascular: Regular rate/rhythm, Normal S1 S2 Gastrointestinal: Normal bowel sounds, Soft and benign, Non-distended, No tenderness Musculoskeletal: No clubbing, No swelling, No tenderness Integumentary: No rashes Neurological: Normal gait, Normal speech, Normal strength at 5/5 x4 extr, Normal tone, Sensation intact, Cranial nerves 3-12 intact, Normal affect Lymphatics: No axilla or inguinal lymphadenopathy - Studies Laboratory Data (last 24 hrs) 07/09/18 01:30: PT 11.3, INR 0.96 07/09/18 01:30: WBC 10.1, Hgb 9.5 L, Hct 30.2 L, Plt Count 291 07/09/18 01:30: Sodium 129 L, Potassium 4.9, BUN 51 H, Creatinine 4.17 H, Glucose 192 H, Magnesium 2.6 H, Total Bilirubin 0.3, AST 22, ALT 20, Alkaline Phosphatase 175 H Assessment & Plan - Problems (Diagnosis) (1) Volume overload Current Visit: Yes Status: Acute (2) Acute diastolic heart failure Onset Date: 06/24/17 Current Visit: No Status: Acute (3) Acute respiratory distress Onset Date: 10/18/17 Current Visit: No Status: Acute (4) COPD exacerbation Onset Date: 10/18/17 Current Visit: No Status: Acute (5) Combined systolic and diastolic heart failure, acute Onset Date: 10/18/17 Current Visit: No Status: Acute (6) ESRD (end stage renal disease) on dialysis Onset Date: 12/16/17 Current Visit: No Status: Chronic (7) History of cardiac pacemaker Onset Date: 04/24/17 Current Visit: No Status: Chronic - Plan Plan: 1. Lasix IV push 2. Review echocardiogram 3. Consult nephrology for hemodialysis 4. Monitor electrolytes 5. Repeat chest x-ray in the morning 6. Replace electrolytes 7. Resume hemodialysis schedule 8. GI and DVT prophylaxis Discharge Plan: Home Plan to discharge in: Greater than 2 days - Advance Directives Does patient have a Living Will: No Does patient have a Durable POA for Healthcare: No - Code Status/Comfort Care Code Status Assessed: Yes Code Status: Full Code Critical Care: No Time Spent Managing PTS Care (In Minutes): 45
[2018-07-09] MEDS ORDERED: IPRATROPIUM BROM 0.5MG/2.5ML NEB SCH (08:00)
--- NOTE | 2018-07-09 08:08 | RAD REPORT ---
EXAM DESCRIPTION: RAD - Chest Single View - 07/09/2018 1:47 am CLINICAL HISTORY: COPD, dyspnea COMPARISON: June 24 TECHNIQUE: AP portable chest image was obtained 0139 hours . FINDINGS: Lung volumes are low. Patient has chronic interstitial lung disease potentially masking ea rly edema or infiltrate. Lung markings are not clearly different from the comparison study. Heart siz e is mildly enlarged, accentuated by shallow inspiration and portable technique. Heart size and vascu lature are similar to comparison. Left-sided dialysis catheter and right-sided pacemaker remain in pl [place]. No pneumothorax or large pleural effusion. There is bilateral costophrenic angle blunting presen t similar to comparison. No acute bony abnormality seen. No acute aortic findings suspected. IMPRESSION: Chronic interstitial lung disease and mild cardiomegaly similar to comparison. Chronic lung changes could mask earliest stages of interstitial edema or infiltrate.
[2018-07-09] MEDS: ALBUTEROL 2.5 MG/3 ML NEB SOL NEB SCH ×3 (08:15→20:05)
[2018-07-09] MEDS: HEPARIN 5000 UNIT/ML 1 ML VIAL SQ SCH ×2 (08:30→21:13)
--- NOTE | 2018-07-09 10:28 | EKG ---
Test Date: 2018-07-09 Test Time: 02:05:51 Primer Charging Tool Setter: RADHA MEASUREMENT RESULTS: Intervals: Rate: 60 NV: 84 QRSD: 152 QT: 476 QTc: 476 Pillow: P: NV: 84 QRS: -22 T: 174 INTERPRETIVE STATEMENTS: Atrial paced rhythm Left bundle branch block Abnormal ECG Compared to ECG 06/24/2018 04:41:47 no significant change from previous ECG Electronically Signed On 07-09-18 10:27:37 CDT by Maxi Burnett
[2018-07-09] MEDS ORDERED: ALBUTEROL 2.5 MG/3 ML NEB SOL IH PRN (13:21)
--- NOTE | 2018-07-09 14:44 | CON ---
Date of Consultation: 07/09/2018 Consulting Physician: Dr. Wiggins. Reason For Consultation: Elevated BUN and creatinine, fluid overload, end-stage renal disease. History Of Present Illness: This is a pleasant unfortunate 88-year-old female with significant past medical history of end-stage renal disease, on hemodialysis, Saturday, Saturday, Saturday at home throug h [facility] [place], hypertension, AFib, peripheral vascular disease, carotid stenosis, coronary artery di sease with congestive heart failure, ejection fraction of 35% to 40%, status post PTCA, the patient w as dialyzed on Saturday and then on Saturday started having severe shortness of breath. For that reason she came to the hospital, found to have hypoxemic with over volume, placed on BiPAP and for that reas on, we have been consulted. The patient was used to have 4 sessions of dialysis weekly to keep her a way from the hospital, but she refused to continue on that regimen. For that reason, the patient leah t back to 3 times a week, still tolerated dialysis very well, but again patient because of the advanc ed congestive heart failure, could not keep up with long weekend. The patient denied any chest pain. No nausea. No vomiting. The patient on BiPAP maintained oxygenation. The patient had also advanc e COPD and she has also pulmonary hypertension, moderate. Past Medical History: Include: 1.Hypertension. 2.Hyperlipidemia. 3.Coronary artery disease complicated with congestive heart failure, ejection fraction of 40% back i n February 2018 status post PTCA. 4.Carotid stenosis. 5.Peripheral vascular disease. 6.AFib. 7.End-stage renal disease, on hemodialysis Saturday, Saturday, Saturday. Past Surgical History: Include: 1.Appendectomy. 2.Tonsillectomy. 3.Hysterectomy. 4.Carpal tunnel. 5.Bilateral lens implant. 6.PermCath placement. Family History: Positive for diabetes and coronary artery disease. Social History: Ex-smoker. Denied alcohol. Denied drug abuse. Review of Systems: Head and Neck: No red eye. No ear pain. GI: No nausea, no vomiting. : No polyuria. No dysuria. No hematuria. 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 Respiratory: Has shortness of breath, on BiPAP. Cardiovascular: Has orthopnea. Musculoskeletal: No joint pain. Endocrine: No polydipsia. Skin: No rash. Home Medications: Include alprazolam breathing treatment. Current Medications: In the hospital include Lasix breathing treatment. Physical Examination: Vital Signs: When I saw the patient, blood pressure 151/64, pulse of 60. Chest: Crackles bilateral. Heart: S1, S2. Regular. Abdomen: Soft, nontender. Extremities: Plus edema. Neuro: Alert, no focal. Laboratory Data: WBC 10.1, H and H 9.5/30.2, platelets of 291. Sodium 129, potassium 4.1, bicarb 28 , BUN 51, creatinine 4.1, calcium 8.5, magnesium 2.6. BNP 120,404. Chest x-ray; cardiomegaly with c ongestion. Assessment And Plan: 1.End-stage renal disease, over volume. I am going to go ahead and arrange for dialysis today and t omorrow to establish better volume control. I had long discussion with the patient regarding the nee d to go back to dialysis 4 times a week. The patient is on agreement. We will follow up. 2.Hypertension, controlled, optimal. Continue current medication. 3.Chronic obstructive pulmonary disease exacerbation. Continue breathing treatment. I am going to start the patient on prednisone. 4.Congestive heart failure exacerbation over volume. We will try to establish better volume control with the ultrafiltration. 5.Pulmonary hypertension. We will consider Ranexa. SID Voice ID: [id number] Report ID: [id number]
[2018-07-09 19:17] LABS: Urine Appearance CLEAR; Urine Bilirubin NEGATIVE (NEG); Urine Blood 3+ (NEG); Urine Color YELLOW; Urine Glucose NEGATIVE (NEG); Urine Protein 1+ (NEG); Urine Specific Gravity <=1.005 (1.005-1.030); Urine Urobilinogen 0.2 mg/dL (0.2-1.0)
[2018-07-09 19:20] LABS: Urine Microscopic Reflex ORDER UMIC
[2018-07-09 19:32] LABS: Urine Bacteria <20 /HPF (<20); Urine Culture Reflex Order REFLEXED
[2018-07-09] MEDS: JUVEN PACKET PO SCH ×2 (21:00→21:13)
[2018-07-09] MEDS: DULERA 100/5 (MOMETASONE/FORMOTEROL) INHALER IH SCH (21:00)
[2018-07-09] MEDS: CARVEDILOL 3.125 MG TAB PO SCH (21:12)
[2018-07-09] MEDS: ATORVASTATIN 10 MG TAB PO SCH (21:13)
[2018-07-10] MEDS: ALBUTEROL 2.5 MG/3 ML NEB SOL NEB SCH ×4 (02:05→20:00)
[2018-07-10 06:06] LABS: Absolute Lymphocytes (CBC) 0.4 K/uL (0.7-4.9); Absolute Monocytes 0.5 K/uL (0.1-1.3); Absolute Neutrophil 3.7 K/uL (1.8-8.0); Basophils % 0.3 % (0-1.3); Eosinophils % 0.5 % (0-4.4); Hematocrit 26.1 % (36.0-45.0); Lymphocytes % 9.6 % (15.3-44.8); Monocytes % 9.7 % (3.3-12.3); RBC Red Blood Cell Count 2.82 M/uL (3.86-4.86)
[2018-07-10 06:40] LABS: Albumin 2.6 g/dL (3.4-5.0); Bilirubin Total 0.2 mg/dL (0.2-1.0); Magnesium 2.3 mg/dL (1.8-2.4); Phosphorus 2.4 mg/dL (2.5-4.9); Potassium 4.4 mmol/L (3.5-5.1); Protein, Total 4.9 g/dL (6.4-8.2)
[2018-07-10] MEDS: IPRATROPIUM BROM 0.5MG/2.5ML IH SCH (07:50)
[2018-07-10] MEDS ORDERED: NA CHLORIDE 0.9% 1,000 ML IV PRN (09:24)
[2018-07-10] MEDS: predniSONE 20 MG TAB PO SCH (09:45)
[2018-07-10] MEDS: CARVEDILOL 3.125 MG TAB PO SCH ×2 (09:46→21:59)
[2018-07-10] MEDS: ASCORBIC ACID 500 MG TABLET PO SCH (09:46)
[2018-07-10] MEDS: AMIODARONE HCL 200 MG TAB PO SCH (09:46)
[2018-07-10] MEDS: MULTIVIT W/ MINERAL TAB PO SCH (09:46)
[2018-07-10] MEDS: JUVEN PACKET PO SCH ×2 (09:47→21:58)
[2018-07-10] MEDS: HEPARIN 5000 UNIT/ML 1 ML VIAL SQ SCH ×2 (09:47→22:00)
[2018-07-10] MEDS: ASPIRIN 81 MG CHEWABLE TABLET PO SCH (09:47)
[2018-07-10] MEDS: EPOETIN ALFA 10,000 UNIT/ML VIAL IV SCH (09:59)
[2018-07-10] MEDS ORDERED: ALBUMIN HUMAN 25% 50 ML IV SCH (10:00)
[2018-07-10] MEDS: DULERA 100/5 (MOMETASONE/FORMOTEROL) INHALER IH SCH ×2 (10:06→21:00)
--- NOTE | 2018-07-10 17:17 | P.PN ---
Subjective Date of Service: 07/10/18 Chief Complaint: Shortness of breath Patient seen and examined at bedside. No family at bedside. Chart reviewed and case discussed with nursing staff. patient very uncooperative and rude with nursing staff. Demanding that she get her furniture, clock and TV here. Seems to be anxious. Does not seem to be in respiratory distress though clinging to BiPAP stating that its the only thing helping her breath. Review of Systems 10-point ROS is otherwise unremarkable Physical Examination - Vital Signs Temperature: 97.3 F Blood Pressure: 157/70 Pulse: 63 Respirations: 21 Pulse Ox (%): 99 - Physical Exam General: Alert, Oriented x3, Mild distress HEENT: Atraumatic, PERRLA, EOMI Neck: Supple, JVD not distended Respiratory: Diminished, Crackles/rales Cardiovascular: Regular rate/rhythm, Normal S1 S2 Gastrointestinal: Normal bowel sounds, No tenderness Assessment And Plan - Current Problems (Diagnosis) (1) Acute and chronic respiratory failure ([id number]) Onset Date: 12/16/17 Current Visit: Yes Status: Acute Plan: Likely multi-factorial: volume overload secondary to CHF exacerbation, ESRD renal failure, COPD Continue IV diuresis w/ IV lasix Strict I&O Daily weights Oxygen as needed Bipap as needed Repeat CXR tomorrow. Qualifiers: Respiratory failure complication: hypoxia Qualified Code(s): J96.21 - Acute and chronic respiratory failure with hypoxia (2) Volume overload Current Visit: Yes Status: Acute Plan: Continue IV diuresis as above Qualifiers: Hypervolemia type: other Qualified Code(s): E87.79 - Other fluid overload (3) ESRD (end stage renal disease) on dialysis Onset Date: 12/16/17 Current Visit: No Status: Chronic Plan: Nephrology consulted, Recommendations appreciated. Continue HD per nephrology. (4) Combined systolic and diastolic heart failure, acute Onset Date: 10/18/17 Current Visit: No Status: Acute (5) Hypertension, essential Onset Date: 10/18/17 Current Visit: No Status: Chronic - Plan DVT prophylaxis: Heparin GI prophylaxis: none Diet: Renal/Fluid restriction Disposition: Pending symptomatic improvement. Possible discharge in the next 24- 48 hrs pending clinical improvement.
--- NOTE | 2018-07-10 17:43 | PN ---
Date of Progress Note: 07/10/2018 Subjective: The patient was admitted with CHF exacerbation. The patient had been dialyzed yesterday and today we managed to remove 2 L today. The patient when I saw her complaining from shortness of breath. Physical Examination: Vital Signs: When I saw the patient, blood pressure 160/60, pulse of 63, afebrile. Chest: Faint rales in the base. Heart: S1, S2. Systolic murmur. Abdomen: Soft, nontender. Extremities: No edema. Laboratory Data: H and H 8.3/26.1. Sodium 139, potassium 4, bicarb 30, BUN 39, creatinine 3.1, GFR of 14, calcium 8.3, phosphorus 2.4. BNP 37512. Current Medications: The patient on its include: 1.Aspirin. 2.Breathing treatment. 3.Epogen. 4.Amiodarone. 5.Atorvastatin. 6.Carvedilol 3.125 b.i.d. 7.Lasix. 8.Vitamin C. 9.Multivitamin. Assessment And Plan: 1.End-stage renal disease. We will continue the patient on dialysis. The patient is going to be du e for her regular dialysis tomorrow. 2.Chronic obstructive pulmonary disease exacerbation. Continue breathing treatment. I am going to continue prednisone. 3.Anemia of chronic kidney disease. Continue Epogen. 4.Secondary hyperparathyroid. No need for binder. SID Voice ID: [id number] Report ID: [id number]
[2018-07-10] MEDS: ATORVASTATIN 10 MG TAB PO SCH (21:59)
[2018-07-11] MEDS: ALBUTEROL 2.5 MG/3 ML NEB SOL NEB SCH ×4 (02:00→20:00)
[2018-07-11] MEDS: IPRATROPIUM BROM 0.5MG/2.5ML IH SCH (07:20)
[2018-07-11] MEDS: DULERA 100/5 (MOMETASONE/FORMOTEROL) INHALER IH SCH ×2 (09:00→21:00)
[2018-07-11] MEDS: MULTIVIT W/ MINERAL TAB PO SCH (09:00)
[2018-07-11] MEDS: EPOETIN ALFA 10,000 UNIT/ML VIAL IV SCH (10:55)
[2018-07-11] MEDS: ASPIRIN 81 MG CHEWABLE TABLET PO SCH (13:00)
[2018-07-11] MEDS: CARVEDILOL 3.125 MG TAB PO SCH ×2 (13:01→21:34)
[2018-07-11] MEDS: AMIODARONE HCL 200 MG TAB PO SCH (13:01)
[2018-07-11] MEDS: ASCORBIC ACID 500 MG TABLET PO SCH (13:01)
[2018-07-11] MEDS: predniSONE 20 MG TAB PO SCH (13:03)
[2018-07-11] MEDS: HEPARIN 5000 UNIT/ML 1 ML VIAL SQ SCH ×2 (13:04→21:36)
[2018-07-11] MEDS: JUVEN PACKET PO SCH ×2 (13:05→21:00)
--- NOTE | 2018-07-11 15:48 | P.PN ---
Subjective Date of Service: 07/11/18 Chief Complaint: Shortness of breath Subjective: Improving ESRD admitted for SOB had Hd daily for 3 days feels better now can be discharged from nephrology point of view can start on bactrim for 5-7 days Physical Examination - Vital Signs Temperature: 97.5 F Blood Pressure: 126/55 Pulse: 60 Respirations: 18 Pulse Ox (%): 98 - Physical Exam General: Alert, In no apparent distress HEENT: Atraumatic Neck: Supple, Without JVD or thyroid abnormality Respiratory: Clear to auscultation bilaterally, Normal air movement Cardiovascular: No edema, Regular rate/rhythm, Normal S1 S2 Gastrointestinal: Normal bowel sounds, Soft and benign Assessment And Plan - Current Problems (Diagnosis) (1) Acute and chronic respiratory failure ([id number]) Onset Date: 12/16/17 Current Visit: Yes Status: Acute Qualifiers: Respiratory failure complication: hypoxia Qualified Code(s): J96.21 - Acute and chronic respiratory failure with hypoxia - Plan Assessment And Plan: End-stage renal disease. Had dialysis daily for 3 days can be discharged and resume home HD tomorrow Chronic obstructive pulmonary disease exacerbation. Continue breathing treatment. prednisone and tappering MBD no need for binders UTI can start on bactrim
--- NOTE | 2018-07-11 15:51 | RAD REPORT ---
EXAM DESCRIPTION: RAD - Chest Single View - 07/11/2018 3:46 pm CLINICAL HISTORY: evaluate for effusion Chest pain. COMPARISON: Chest Single View dated 07/09/2018; Chest Single View dated 06/24/2018; Chest Single View d ated 05/06/2018; Chest Single View dated 04/30/2018 FINDINGS: Portable technique limits examination quality. The lungs are grossly clear. The heart is mildly enlarged in size. Multilead pacer device is present. Left-sided venous catheter tip in the SVC. Trace pleural fluid bilaterally.
--- NOTE | 2018-07-11 16:32 | P.PN ---
Subjective Date of Service: 07/11/18 Chief Complaint: Shortness of breath Subjective: Improving Patient seen and examined at bedside. No family at bedside. Chart reviewed and case discussed with nursing staff. Patient continues to be a cooperative, demanding. Respiratory status improved, off BiPAP and on nasal cannula. Satting well She is status post dialysis today Review of Systems 10-point ROS is otherwise unremarkable Physical Examination - Vital Signs Temperature: 97.5 F Blood Pressure: 126/55 Pulse: 60 Respirations: 18 Pulse Ox (%): 98 - Physical Exam General: Alert, In no apparent distress, Oriented x3, Other (Elderly, ) HEENT: Atraumatic, PERRLA, EOMI Neck: Supple, JVD not distended Respiratory: Diminished, Crackles/rales Cardiovascular: Regular rate/rhythm, Normal S1 S2 Gastrointestinal: Normal bowel sounds, No tenderness Musculoskeletal: No tenderness Integumentary: No rashes Neurological: Normal speech, Normal tone, Normal affect Lymphatics: No axilla or inguinal lymphadenopathy Assessment And Plan - Current Problems (Diagnosis) (1) Acute and chronic respiratory failure ([id number]) Onset Date: 12/16/17 Current Visit: Yes Status: Acute Plan: Likely multi-factorial: volume overload secondary to CHF exacerbation, ESRD renal failure, COPD Continue IV diuresis w/ IV lasix Strict I&O Daily weights Oxygen as needed Bipap as needed Repeat CXR tomorrow. Qualifiers: Respiratory failure complication: hypoxia Qualified Code(s): J96.21 - Acute and chronic respiratory failure with hypoxia (2) Volume overload Current Visit: Yes Status: Acute Plan: Continue IV diuresis as above Qualifiers: Hypervolemia type: other Qualified Code(s): E87.79 - Other fluid overload (3) ESRD (end stage renal disease) on dialysis Onset Date: 12/16/17 Current Visit: No Status: Chronic Plan: Nephrology consulted, Recommendations appreciated. Continue HD per nephrology. (4) Combined systolic and diastolic heart failure, acute Onset Date: 10/18/17 Current Visit: No Status: Acute (5) Hypertension, essential Onset Date: 10/18/17 Current Visit: No Status: Chronic (6) Urinary tract infection Current Visit: Yes Status: Acute Plan: Patient's urine cultures positive for Enterobacter clocae, sensitive to Bactrim. Will start oral Bactrim double-strength b.i.d. x7 days. Discussed with nephrology, clear to use Bactrim as patient undergoing dialysis 4 times a week. Qualifiers: Urinary tract infection type: acute cystitis Hematuria presence: without hematuria Qualified Code(s): N30.00 - Acute cystitis without hematuria - Plan DVT prophylaxis: Heparin GI prophylaxis: none Diet: Renal/Fluid restriction Disposition: Pending symptomatic improvement. She will be discharged home tomorrow after dialysis session.
[2018-07-11] MEDS: SMZ./TMP. 800/160 MG TABLET PO SCH (21:33)
[2018-07-11] MEDS: ATORVASTATIN 10 MG TAB PO SCH (21:33)
[2018-07-12] MEDS: ALBUTEROL 2.5 MG/3 ML NEB SOL NEB SCH ×3 (02:00→13:30)
[2018-07-12] MEDS: IPRATROPIUM BROM 0.5MG/2.5ML IH SCH (07:43)
[2018-07-12 08:42] VITALS: O2SAT 100
[2018-07-12 09:00] VITALS: BP 143/63; TEMP 98.1
[2018-07-12] MEDS: DULERA 100/5 (MOMETASONE/FORMOTEROL) INHALER IH SCH (09:00)
[2018-07-12] MEDS: JUVEN PACKET PO SCH (09:00)
[2018-07-12] MEDS: MULTIVIT W/ MINERAL TAB PO SCH (09:00)
[2018-07-12] MEDS: EPOETIN ALFA 10,000 UNIT/ML VIAL IV SCH (11:45)
[2018-07-12] MEDS: predniSONE 20 MG TAB PO SCH (12:46)
[2018-07-12] MEDS: ASCORBIC ACID 500 MG TABLET PO SCH (12:47)
[2018-07-12] MEDS: CARVEDILOL 3.125 MG TAB PO SCH (12:47)
[2018-07-12] MEDS: AMIODARONE HCL 200 MG TAB PO SCH (12:48)
[2018-07-12] MEDS: ASPIRIN 81 MG CHEWABLE TABLET PO SCH (12:48)
[2018-07-12] MEDS: SMZ./TMP. 800/160 MG TABLET PO SCH (12:48)
[2018-07-12] MEDS: HEPARIN 5000 UNIT/ML 1 ML VIAL SQ SCH (12:50)
--- NOTE | 2018-07-12 13:20 | P.SSS ---
Patient History Date of Service: 07/12/18 Reason for admission: Shortness of breath History of Present Illness: Patient is an 88-year-old female who came to the hospital with shortness of breath. Patient goes to dialysis Saturday, Saturday, and Fridays. Patient did not miss any of her dialysis sessions; however, patient feels she may have drink too much fluids. Patient was severely short of breath on arrival. BiPAP placement was done. Afterwards, patient was feeling better. Patient remains on BiPAP we are weaning patient off. Consulted nephrology for hemodialysis. Hopefully, after hemodialysis patient will feel much better and possibly can be discharged home if clinically appears to be doing well. Allergies acetylcysteine [From Mucomyst] Allergy (Mild, Verified 07/09/18 05:03) Shortness of breath Iodinated Contrast- Oral and IV Dye Allergy (Verified 07/09/18 05:03) Itching/Hives/Rash ciprofloxacin Adverse Reaction (Mild, Verified 07/09/18 05:03) muscle spasm Penicillins Adverse Reaction (Mild, Verified 07/09/18 05:03) Itching Home medications list reviewed: Yes Home Medications: Albuterol Sulfate [Albuterol Sulfate 0.083% Neb Soln] 2.5 mg IH DAILY PRN Amiodarone HCl [Cordarone*] 200 mg PO DAILY 07/09/18 Ascorbic Acid [Vitamin C] 250 mg PO DAILY 07/09/18 Aspirin [Kathleen Chewable Aspirin] 81 mg PO DAILY 07/09/18 Carvedilol [Coreg*] 3.125 mg PO BID 07/09/18 Fluticasone/Salmeterol [Advair 250-50 Diskus] 1 each IH DAILY 07/09/18 Ipratropium [place] 0.2 mg IH DAILY 07/09/18 Multivit-Min/Iron/Folic/Lutein [Centrum Silver Women Tablet] 1 each PO DAILY Pravastatin Sodium [Pravachol] 80 mg PO DAILY 07/09/18 Smz./Tmp. [Bactrim Ds 800 MG/160 MG*] 1 tab PO BID #14 tab 07/12/18 - Past Medical/Surgical History Has patient received pneumonia vaccine in the past: Yes Diabetic: No -: COPD, Oxygen dependent -: HTN -: Atrial fibrillation, Pacemaker -: GERD -: Chronic anemia -: CAD -: PVD -: Carotid arterial disease -: Hyperlipidemia -: CHF, diastolic dysfunction, moderate pulmonary hypertension -: Permanent Pacemaker to upper rt chest-Sep [address] Narvaez -: Cornary stents -: kidney stents and stents to ea leg -: Bilateral lens implants -: Bilateral carpal tunnel repair -: Hysterectomy -: Appendectomy -: Tonsillectomy Psychosocial/ Personal History: She is . Patient gets home dialysis - Family History Mother -: Heart disease, Diabetes Notes: of MD Sister -: Diabetes - Social History Smoking Status: Never smoker Alcohol use: No CD- Drugs: No Caffeine use: No Place of Residence: Home Review of Systems 10-point ROS is otherwise unremarkable Physical Examination - Vital Signs Temperature: 98.1 F Blood Pressure: 143/63 Pulse: 60 Respirations: 18 Pulse Ox (%): 100 - Physical Exam General: Alert, In no apparent distress, Oriented x3, Other (Elderly, frail) HEENT: Atraumatic, PERRLA, Mucous membr. moist/pink, EOMI, Sclerae nonicteric Neck: Supple, 2+ carotid pulse no bruit, No LAD, Without JVD or thyroid abnormality Respiratory: Clear to auscultation bilaterally, Normal air movement Cardiovascular: Regular rate/rhythm, Normal S1 S2 Gastrointestinal: Normal bowel sounds, No tenderness Musculoskeletal: No tenderness Integumentary: No rashes Neurological: Normal gait, Normal speech, Normal strength at 5/5 x4 extr, Normal tone, Normal affect Lymphatics: No axilla or inguinal lymphadenopathy - Diagnosis (Problem(s)) (1) Acute and chronic respiratory failure ([id number]-[id number]-pzkuaui) Onset Date: 12/16/17 Current Visit: Yes Status: Acute Qualifiers: Respiratory failure complication: hypoxia Qualified Code(s): J96.21 - Acute and chronic respiratory failure with hypoxia (2) Volume overload Current Visit: Yes Status: Acute Qualifiers: Hypervolemia type: other Qualified Code(s): E87.79 - Other fluid overload (3) ESRD (end stage renal disease) on dialysis Onset Date: 12/16/17 Current Visit: No Status: Chronic (4) Combined systolic and diastolic heart failure, acute Onset Date: 10/18/17 Current Visit: No Status: Acute (5) Hypertension, essential Onset Date: 10/18/17 Current Visit: No Status: Chronic (6) Urinary tract infection Current Visit: Yes Status: Acute Qualifiers: Urinary tract infection type: acute cystitis Hematuria presence: without hematuria Qualified Code(s): N30.00 - Acute cystitis without hematuria Treatment Summary: It was admitted for acute on chronic respiratory failure, likely multifactorial related to volume overload secondary to CHF exacerbation, ESRD renal failure and COPD. She was started on IV diuresis with IV Lasix. Her weight is in input and output were monitored. She was provided oxygen on BiPAP as needed. She is weaned off of BiPAP back to her home oxygen. Nephrology was consulted. She was provided with hemodialysis per nephrology recommendations. She was found to have urine cultures positive for Enterobacter clocae, sensitive to Bactrim. She was started on oral Bactrim double-strength b.i.d. to complete a 7 days. This was discussed with nephrology, and she was cleared to use Bactrim as patient undergoing dialysis 4 times a week. Her symptoms did improve. She was then discharged home, after being cleared by nephrology, with instructions to follow up with Nephrology, her primary care physician. She was also discharged home on Bactrim to complete a 7 day course as noted above. - Disposition Discharge Date: 07/12/18 Disposition: ROUTINE DISCHARGE Condition: FAIR Consultations: Nephrology Patient Discharge Instructions: Please follow up with your primary care physician in 2-3 days. Please follow up with Nephrology in 2 weeks. Please return to the Emergency room for worsening symptoms. Diet: Renal Activity: Ad jessica Time Spent Managing Pts Care (In Minutes): 55
--- NOTE | 2018-07-13 02:13 | PN ---
Date of Progress Note: 07/12/2018 Chief Complaint: End-stage renal disease, fluid overload, shortness of breath, congestive heart fail ure, acute on chronic with diastolic dysfunction. History Of Present Illness: The patient received dialysis today with ultrafiltration. The patient t olerated procedure very well. The patient is on dialysis and has been dialyzed outpatient 3 times pe r week. Review of Systems: Denies fever or chills. Physical Examination: Lungs: Clear to auscultation bilaterally. Heart: S1, S2. Abdomen: Soft, benign, nontender. Extremities: No edema. Impression And Plan: 1.End-stage renal disease. Dialysis was done today. Ultrafiltration was obtained. 2.Anemia in chronic kidney disease. Continue ROMELIA. 3.Renal osteodystrophy. Continue renal diet and binders. 4.Urinary tract infection. Continue Bactrim. 5.Congestive heart failure, fluid overload. The patient was found to have elevated BNP up to 122,06 1. Monitor fluid balance. Continue low-sodium diet. 6.Chronic obstructive pulmonary disease exacerbation. Continue nebulizer. STEPHON/ADITI Voice ID: [id number] Report ID: [id number]
== END 2018-07-12 13:58 | disposition home health service (06) ==
LOC: ER 01:17 → ERHOLD 03:15 → 2ND 04:18
PROVIDERS: ADMIT Hospitalist; ATTEND Family Medicine
DX: E87.79 Other fluid overload (principal); J96.21 Acute and chronic respiratory failure with hypoxia; J44.1 Chronic obstructive pulmonary disease with (acute) exacerbation; I13.2 Hypertensive heart and chronic kidney disease with heart failure and with stage 5 chronic kidney disease, or end stage renal disease; I50.41 Acute combined systolic (congestive) and diastolic (congestive) heart failure; N18.6 End stage renal disease; N39.0 Urinary tract infection, site not specified; B96.89 Other specified bacterial agents as the cause of diseases classified elsewhere; D63.1 Anemia in chronic kidney disease; N25.81 Secondary hyperparathyroidism of renal origin; I44.7 Left bundle-branch block, unspecified; R94.31 Abnormal electrocardiogram [ECG] [EKG]; E78.5 Hyperlipidemia, unspecified; I27.20 Pulmonary hypertension, unspecified; I73.9 Peripheral vascular disease, unspecified; I25.10 Atherosclerotic heart disease of native coronary artery without angina pectoris; I48.91 Unspecified atrial fibrillation; I65.29 Occlusion and stenosis of unspecified carotid artery; K21.9 Gastro-esophageal reflux disease without esophagitis; Z79.82 Long term (current) use of aspirin; Z79.899 Other long term (current) drug therapy; Z95.0 Presence of cardiac pacemaker; Z95.5 Presence of coronary angioplasty implant and graft; Z99.81 Dependence on supplemental oxygen; Z99.2 Dependence on renal dialysis; Z87.891 Personal history of nicotine dependence
CPT/HCPCS: 93005; 87040 ×2; 87088; 85025 ×2; 87086; 80048; 36415 ×2; 83735 ×2; 84100; 85610; 82962 ×3; 80076; 83605 ×2; 87077; 87186; 84484; 80053; 84145; 83880 ×2; 71045 ×2; 90935 ×2; 97162; 94640; 94760 ×5; 94660 ×4; 51702; 96375; 96374; 99285; J1940 ×2; J1644 ×10; Q4081 ×3; J2930; G0257; G0378 ×2; 81003; 81015; J2405; J7512; J7606; P9047

== ENCOUNTER 2018-07-13 22:28 | Emergency (ER) | payer OTHER ==
[2018-07-13 22:56] LABS: Absolute Lymphocytes (CBC) 0.8 K/uL (0.7-4.9); Absolute Monocytes 0.7 K/uL (0.1-1.3); Absolute Neutrophil 10.7 K/uL (1.8-8.0); Basophils % 0.4 % (0-1.3); Eosinophils % 0.2 % (0-4.4); Hematocrit 30.2 % (36.0-45.0); Lymphocytes % 6.2 % (15.3-44.8); MPV 8.7 fL (7.6-11.3); Monocytes % 5.8 % (3.3-12.3); RBC Red Blood Cell Count 3.23 M/uL (3.86-4.86)
[2018-07-13 23:00] LABS: Protime INR 0.98
--- OUTSIDE RECORDS SUMMARY | 2018-07-13 23:02 | XMS REPORT | Clinical Summary ---
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; Alma Delia Pradhan MD Acute on chronic systolic and diastolic heart failure, NYHA class 3 ([facility]); Hannah Lance Mixed hyperlipidemia; MD Geeta Respiratory failure requiring intubation ([facility]); Darryl ESRD (end stage renal disease) ([facility]); MD Tammie Essential hypertension; Atrial fibrillation, rapid ([facility]); Acute respiratory failure with hypoxemia ([facility]); COPD exacerbation ([facility]); AF (paroxysmal atrial fibrillation) ([facility]) 05/06/2018 Telephone Critical Care Silvano Hays [facility] Call Medicine MD Michi after 07/12/2017 Family History Medical History Relation Name Comments [...] 452 ms QTC Calculation(Bazett) 488 ms R [place] -46 degrees T [place] 174 degrees Wide QRS rhythm Left bundle [...] 470 ms QTC Calculation(Bazett) 484 ms P [place] 219 degrees R [place] -29 degrees T [place] 154 degrees Unusual P axis, possible ectopic [...] 470 ms QTC Calculation(Bazett) 470 ms R [place] -27 degrees T [place] 197 degrees Atrial-paced rhythm Non-specific intra-ventricular conduction [...] 476 ms QTC Calculation(Bazett) 487 ms R [place] -40 degrees T [place] 211 degrees Wide QRS rhythm Left axis [...] 484 ms QTC Calculation(Bazett) 495 ms R [place] -39 degrees T [place] 212 degrees Wide QRS rhythm Left axis [...] 464 ms QTC Calculation(Bazett) 493 ms P [place] 79 degrees R [place] -17 degrees T [place] 195 degrees Suspect unspecified pacemaker failure Sinus [...] 422 ms QTC Calculation(Bazett) 468 ms R [place] -3 degrees T [place] 212 degrees Wide QRS rhythm Non-specific intra-ventricular [...] procedure are in the results section. after 07/12/2017 Results EKG-SCANNED (05/19/2018 1:51 PM CDT) Narrative [...] 452 ms QTC Calculation(Bazett) 488 ms R [place] -46 degrees T [place] 174 degrees Sinus rhythm Left bundle branch [...] 452 ms QTC Calculation(Bazett) 488 ms R [place] -46 degrees T [place] 174 degrees Sinus rhythm Left bundle branch [...] included. WBC 6.6 3.5 - 10.5 K/L [facility] RBC 3.38 (L) 3.93 - 5.22 M/L [facility] Hemoglobin 10.0 (L) 11.2 - 15.7 GM/DL [facility] Hematocrit 34.6 34.1 - 44.9 % [facility] MCV 102.4 (H) 79.4 - 94.8 fL [facility] MCH 29.6 25.6 - 32.2 pg [facility] MCHC 28.9 (L) 32.2 - 35.5 GM/DL [facility] RDW 19.6 (H) 11.7 - 14.4 % [facility] Platelets 129 (L) 150 - 450 K/CU MM [facility] MPV 11.0 9.4 - 12.3 fL [facility] nRBC 0 0 - 0 /100 WBC [facility] % Neutros 76 % [facility] % Lymphs 10 % [facility] % Monos 8 % [facility] % Eos 6 % [facility] % Baso 1 % [facility] # Neutros 5.04 1.56 - 6.13 K/L [facility] # Lymphs 0.64 (L) 1.18 - 3.74 K/L [facility] # Monos 0.50 (H) 0.24 - 0.36 K/L [facility] # Eos 0.36 0.04 - 0.36 K/L [facility] # Baso 0.03 0.01 - 0.08 K/L [facility] Immature 0 0 - 1 % [facility] Specimen Blood Performing Organization Address City/State/Zipcode Phone Number [address] [address] CENTER Phosphorus (05/15/2018 5:49 AM CDT)Only the most recent of7 resultswithin the time period is included. Phosphorus 3.2 2.3 - 4.7 mg/dL [facility] Specimen Blood Performing Organization Address City/State/Zipcode Phone Number [address] [address] CENTER Magnesium (05/15/2018 5:49 AM CDT)Only the most recent of10 resultswithin the time period is included. Magnesium 1.8 1.6 - 2.6 mg/dL [facility] Specimen Blood Performing Organization Address City/[facility]/Zipcode Phone Number [address] [address] [place] Basic Metabolic Panel (05/15/2018 5:49 AM CDT)Only the most recent of9 resultswithin the time period is included. Sodium 138 136 - 145 meq/L [facility] Potassium 3.7 3.5 - 5.1 meq/L [facility] Chloride 103 98 - 107 meq/L [facility] CO2 26 22 - 29 meq/L [facility] BUN 12 7 - 21 mg/dL [facility] Creatinine 2.45 (H) 0.57 - 1.25 mg/dL [facility] Glucose 82 70 - 105 mg/dL [facility] Calcium 8.3 (L) 8.4 - 10.2 mg/dL [facility] EGFR 19Comment: ESTIMATED GFR IS mL/min/1.73 sq m [facility] NOT ACCURATE CREATININE [facility] CENTER CLEARANCE IN PREDICTING GLOMERULAR FILTRATION RATE. ESTIMATED GFR IS NOT APPLICABLE FOR DIALYSIS PATIENTS. Specimen Blood Performing Organization Address [facility] Phone Number [address] [address] [phone] [place] Occult blood, stool (05/13/2018 3:20 PM CDT) Occult blood Positive (A) Negative [facility] Specimen Stool Performing Organization Address City/[facility]/Zipcode Phone Number [address] [address] [phone] [place] POC-Glucose meter (05/12/2018 10:38 PM CDT)Only the most recent of22 resultswithin the time period is included. POC-Glucose Meter 109Comment: TESTED AT 70 - 110 mg/dL [facility] [address] [place] [address] [place] [address] Specimen Blood Performing Organization Address City/State/Zipcode Phone Number [place] [phone] [place] [address] [phone] CENTER HEMODIALYSIS INPATIENT (05/11/2018 3:42 PM CDT) [...] included. Specimen Narrative Performed At FINAL REPORT [facility] AP chest HISTORY: Shortness of breath. COMPARISON: 05/09/2017. IMPRESSION: Endotracheal tube removed. Dialysis catheter and AICD present. Cardiomegaly. Thoracic aortic ectasia. Clear lungs. Signed: Chance Lim MD Report Verified Date/Time:05/11/2018 13:55:01 Reading Location: [facility] C013 Transitional Reading Room Procedure Note Interface, External Ris In - 05/11/2018 1:57 PM CDT FINAL REPORT AP chest HISTORY: Shortness of breath. COMPARISON: 05/09/2017. IMPRESSION: Endotracheal tube removed. Dialysis catheter and AICD present. Cardiomegaly. Thoracic aortic ectasia. Clear lungs. Signed: Chance Lim MD Report Verified Date/Time: 05/11/2018 13:55:01 Reading Location: [facility] C013 Transitional Reading Room Performing Organization [...] weekly under care of Dr. Kahn in [facility]. She was admitted for the third [...] of oxalate reabsorption. Keo Garibay MD [facility] Nephrology Faculty Pipe Bender, Training Program Office : [phone] 05/11/2018 12:05 PM Subjective Still c/o SOB [...] Take 250 mg by mouth daily. Yes [place] MD aspirin 81 MG chewable tablet [...] Yes [place] MD Current Hospital Medications: iagjxyarfz126 mg Oral BID 200 mg at 05/11/18 0948 roraixc99 mg Oral Daily 81 mg at 05/11/18 0949 xttvvmoljpbk755 mg Oral Daily 500 mg at 05/11/18 0949 cefTRIAXone1 g Intravenous Q24H Stopped at 05/11/18 1032 epoetin mannie-epbx3,000 Units Subcutaneous Once per day on Sat 3,000 Units at 05/10/18 2234 wbjpnynlkp72 mg Feed Tube Daily 20 mg at 05/11/18 0949 ipratropium0.5 mg Nebulization BID 0.5 mg at 05/10/18 1922 lidocaine1 mL Other - See Admin Instructions Once mL Other - See Admin Instructions Once polyethylene ipiwbu63 g Oral Daily 17 g at 05/09/18 1057 rrcopfhforn13 mg Oral Daily 80 mg at 05/11/18 [...] file Gets together: Not on file Attends tenriism service: Not on file Active member of [...] BNP 13,553 (H) 0 - 100 pg/mL [facility] Specimen Blood Performing Organization Address City/State/Zipcode Phone Number [facility] [address] [place] [address] [phone] CENTER PT/aPTT (05/10/2018 11:06 AM CDT)Only the most recent of6 resultswithin the time period is included. Protime 15.0 (H) 11.7 - 14.7 seconds [facility] INR 1.1 <=5.9 [facility] PTT 41.5 (H) 22.5 - 36.0 seconds [facility] Specimen Blood Narrative Performed At RECOMMENDED COUMADIN/WARFARIN INR THERAPY [facility] RANGES STANDARD DOSE: 2.0 - 3.0 Includes: PROPHYLAXIS for venous thrombosis, systemic embolization; TREATMENT for venous thrombosis and/or pulmonary embolus. HIGH RISK: Target INR is 2.5-3.5 for patients with mechanical heart valves. Performing Organization Address [facility] Phone Number [address] [address] [place] aPTT (05/10/2018 4:34 AM CDT) PTT 28.8 22.5 - 36.0 seconds [facility] Specimen Blood Performing Organization Address [facility] Number [address] [address] [place] Heparin Assay - Unfractionated (05/09/2018 4:45 AM CDT) Anti 10A-Unfractionated 0.16 (L) 0.30 - 0.70 u/ml [facility] Heparin [facility] Specimen Blood Narrative Performed At Recommendations for Monitoring Unfractionated [facility] Heparin Therapeutic Range: 0.3-0.7 u/mL with continuous IV infusion Performing Organization Address [facility] Number [address] [address] [phone] [place] Procalcitonin (05/09/2018 2:20 AM CDT)Only the most recent of2 resultswithin the time period is included. Procalcitonin 0.29 (H) <0.05 ng/mL [facility] Specimen Blood Narrative Performed At SEPSIS RISK (ng/mL) [facility] Low:0.05-0.50 Intermediate: 0.51-2.00 High: >=2.01 Performing Organization Address [facility]/Zipcode Phone Number [facility] [address] [place] [address] [phone] [place] CBC (Hemogram only) (05/08/2018 5:34 PM CDT) WBC 6.3 3.5 - 10.5 K/L [facility] RBC 3.12 (L) 3.93 - 5.22 M/L [facility] Hemoglobin 9.1 (L) 11.2 - 15.7 GM/DL [facility] Hematocrit 30.6 (L) 34.1 - 44.9 % [facility] MCV 98.1 (H) 79.4 - 94.8 fL [facility] MCH 29.2 25.6 - 32.2 pg [facility] MCHC 29.7 (L) 32.2 - 35.5 GM/DL [facility] RDW 21.8 (H) 11.7 - 14.4 % [facility] Platelets 147 (L) 150 - 450 K/CU MM [facility] MPV 10.5 9.4 - 12.3 fL [facility] nRBC 0 0 - 0 /100 WBC [facility] Specimen Blood Performing Organization Address City/State/Zipcode Phone Number [facility] [address] [place] [address] [place] Blood gas, arterial (05/08/2018 9:24 AM CDT)Only the most recent of2 resultswithin the time period is included. pH, Arterial 7.42 7.35 - 7.45 [facility] pCO2, Arterial 39 35 - 45 mmHg [facility] pO2, Arterial 64 (L) 80 - 90 mmHg [facility] O2 Sat, Arterial 92.6 (L) 96.0 - 97.0 % [facility] HCO3, Arterial 25 21 - 29 mmol/L [facility] Base Excess, Arterial 0.6 -2.0 - 3.0 mmol/L [facility] Patient Temperature 37.2 C [facility] FIO2 24.0 % [facility] Specimen Blood, Arterial Performing Organization Address City/[facility] Phone Number [address] [address] [place] Vitamin B12 and Folate (05/08/2018 4:40 AM CDT) Vitamin B12 677 213 - 816 pg/mL [facility] Folate 15.9 >=7.0 ng/mL [facility] Specimen Blood Performing Organization Address [facility] Phone Number [address] [address] [phone] [place] TSH/Free T4 If Indicated (05/08/2018 4:40 AM CDT) TSH 1.73 0.35 - 4.94 uIU/mL [facility] Specimen Blood Performing Organization Address [facility] Phone Number [address] [address] CENTER Iron, TIBC, % sat. (without ferritin) (05/08/2018 4:40 AM CDT) Iron 29.0 (L) 40.0 - 160.0 ug/dL [facility] TIBC 138 (L) 250 - 450 ug/dL [facility] Iron % Saturation 21 20 - 55 % [facility] Specimen Blood Performing Organization Address [facility] Phone Number [address] [address] CENTER Troponin I (05/08/2018 4:40 AM CDT)Only the most recent of3 resultswithin the time period is included. Troponin I 0.28 (HH) 0.00 - 0.03 ng/mL [facility] Specimen Blood Narrative Performed At Troponin I (TnI) levels must be interpreted [facility] in the context of the presenting [...] disease, and persistent tachyarrhythmia. Performing Organization Address City/[facility] Phone Number [address] [address] [place] Ferritin (05/08/2018 4:40 AM CDT) Ferritin 577 (H) 5 - 275 ng/mL [facility] Specimen Blood Performing Organization Address [facility] Phone Number [address] [address] [place] Lipid panel (05/08/2018 4:40 AM CDT) Triglycerides 77 mg/dL [facility] Cholesterol 93 mg/dL [facility] HDL 42 mg/dL [facility] LDL Calculated 36 mg/dL [facility] Specimen Blood Narrative Performed At Triglyceride Reference Range: [facility] Low Risk <150 Wghqugepwg696-977 High Risk 200-499 Very High Risk>=500 Cholesterol Reference Range: Low Risk <200 Qjlykvajis054-822 High Risk>240 HDL Cholesterol Reference Range: Low Risk >=60 High Risk <40 LDL Cholesterol Reference Range: Optimal<100 Near Lkboxee196-978 Seycflkvqy841-171 Hgwi291-185 Very High >=190 Performing Organization Address [facility] Phone Number [address] [address] [place] ECHOCARDIOGRAM REPORT - SCAN (05/07/2018 9:10 PM CDT) Narrative Performed At Hemoglobin and hematocrit (05/07/2018 6:42 PM CDT) Hemoglobin 9.1 (L) 11.2 - 15.7 GM/DL [facility] Hematocrit 29.7 (L) 34.1 - 44.9 % [facility] Specimen Blood Performing Organization Address City/[facility]/Zipcode Phone Number [facility] [address] [place] [address] [phone] CENTER HEMODIALYSIS INPATIENT (05/07/2018 5:38 PM CDT) [...] tunneled dialysis catheter. Keo Garibay MD Office [phone] 05/07/2018 5:38 PM Hepatitis B surface antigen (05/07/2018 3:29 PM CDT) hepatitis B Surface Ag NON-REACTIVE Nonreactive [facility] Specimen Blood Performing Organization Address City/[facility]/Zipcode Phone Number [address] [address] [place] 2D Echo W/Doppler(CW/PW/Color) (05/07/2018 3:06 PM CDT) Ejection Fraction [facility] Specimen Narrative Performed At Transthoracic Echocardiography Report (TTE) [facility] Kids Write NetworkCKESSON [facility] Demographics Patient Name Nickie JOHNSON of Study 05/07/2018 [id number] GenderFemale Visit Number [id number] Unknown [id number] Room Number 7405 Number Date of Birth1930Referring Physician Silvano Hays Age88 year(s)Electroneurodiagnostic Technologist Toni Young InterpretingSteplavon Swartz Physician Fellow EMILY [...] of Study 05/07/2018 Gender Female Visit Number [id number] Race Unknown Room Number 7405 Number Date of 1930 Referring Physician Silvano Hays Age 88 year(s) Electroneurodiagnostic Technologist Toni Young Interpreting Carole Swartz Physician Fellow [...] TR Gradient: 25.8 mmHg Performing Organization Address [facility] Phone Number [facility] MKCKESSON [facility] Blood gas, venous (05/07/2018 9:13 AM CDT) pH, Riky 7.41 7.32 - 7.42 [facility] pCO2, Riky 41 41 - 51 mmHg [facility] pO2, Riky 26 25 - 40 mmHg [facility] O2 Sat, Riky 47.9 40.0 - 70.0 % [facility] HCO3, Riky 25 21 - 29 mmol/L [facility] Base Excess, Riky 0.4 -2.0 - 3.0 mmol/L [facility] Patient Temperature 37.0 C [facility] FIO2 30.0 % [facility] Specimen Blood Performing Organization Address City/[facility]/Zipcode Phone Number [facility] [address] [place] [address] CENTER Lactic acid, venous (05/07/2018 5:41 AM CDT) Lactate, Venous 0.6Comment: Specimen 0.5 - 2.2 mmol/L [facility] slightly hemolyzed [facility] Specimen Blood Performing Organization Address City/State/[facility] Phone Number [facility] [address] [place] [address] [place] Vancomycin level, random (05/07/2018 5:41 AM CDT) Vancomycin Rm 21.7 ug/mL [facility] Specimen Blood Narrative Performed At Reference Range: No Normals [facility] Performing Organization Address City/[facility] Phone Number [address] [address] [phone] [place] RESPIRATORY PANEL [facility] (05/06/2018 11:45 PM CDT) Human Metapneumovirus Not detected Not detected, [facility] Rhinovirus Not detected Not detected, [facility] Influenza A Not detected Not detected, [facility] INFLUENZA A (NO SUBTYPE) Not detected, [facility] Influenza A subtype H1 Not detected, [facility] Influenza A Subtype H3 Not detected, [facility] Influenza A Subtype H1-2009 Not detected, [facility] Influenza B Not detected Not detected, [facility] Respiratory Syncytial Virus Not detected Not detected, [facility] Parainfluenza Virus 1 Not detected Not detected, [facility] Parainfluenza Virus 2 Not detected Not detected, [facility] Parainfluenza virus 3 Not detected Not detected, [facility] Parainfluenza Virus 4 Not detected Not detected, [facility] Adenovirus Not detected Not detected, [facility] Coronavirus 229E Not detected Not detected, [facility] Coronavirus HKU1 Not detected Not detected, [facility] Coronavirus NL63 Not detected Not detected, [facility] Coronavirus OC43 Not detected Not detected, [facility] Bordetella Pertussis Not detected Not detected, [facility] Chlamydophila Pneumoniae Not detected Not detected, [facility] Mycoplasma Pneumoniae Not detected Not detected, [facility] Specimen Nasopharyngeal Narrative Performed At Other viruses and bacteria not targeted by [facility] this PCR panel cannot be excluded; therefore clinical correlation and follow up of serology, culture results, and other molecular studies is required. The results are not intended to be used as the sole means for clinical diagnosis or patient management decisions. This sample was tested at the [facility] Molecular Diagnostics Laboratory using the Share Some Style[employer] Respiratory Panel. It is FDA cleared and has been verified and approved by the [facility] Molecular Diagnostics Laboratory for clinical use on nasal swab specimens. It is not FDA-cleared for use on bronchial wash/lavage samples. However, for this sample type, validation was performed and test characteristics were determined and approved, by [facility] Molecular Diagnostics laboratory for clinical use under the Clinical Laboratory Improvement Amendments (CLIA) of 1988 requirements. Therefore, FDA clearance is not required.This laboratory is CLIA-certified and [employer] (CAP)-accredited to perform high complexity testing. Performing Organization Address City/State/Zipcode Phone Number [place] [phone] [place] [address] [place] Blood Culture - Routine (Left Venipuncture) (05/06/2018 11:27 PM CDT) Result No growth in 5 days [facility] Specimen Blood Performing Organization Address City/[facility]/Zipcode Phone Number [place] [phone] [place] [address] [phone] [place] Sputum Culture + Gram Stain (05/06/2018 11:20 PM CDT) Result METHICILLIN RESISTANT [facility] STAPHYLOCOCCUS AUREUS (A) MEDICAL [place] Gram Stain Result <1+ White blood cells seen [facility] Gram Stain Result 0-5 epithelial cells [facility] Gram Stain Result 2+ gram positive cocci in [facility] chains and pairs [facility] Specimen Sputum Narrative Performed At 2+ Normal respiratory baldev present [facility] Organism Antibiotic Method Susceptibility Methicillin resistant [...] aureus Performing Organization Address City/State/Zipcode Phone Number [address] [address] [place] XR abdomen / KUB 1 view (05/06/2018 11:10 PM CDT) Specimen Narrative Performed At FINAL REPORT [facility] History: Intubation. FINDINGS: No comparisons. Single AP [...] MD Report Verified Date/Time:05/06/2018 23:28:30 Reading Location: [facility] Diagnostic Imaging Reading Room - [place] [address] Procedure Note Interface, External Ris In - [...] Report Verified Date/Time: 05/06/2018 23:28:30 Reading Location: [facility] Diagnostic Imaging Reading Room - [place] [address] Performing Organization Address City/State/Zipcode Phone Number [facility] Urinalysis w/Microscopic + Reflex to Culture (05/06/2018 10:42 PM CDT) Color, UA Red [facility] Clarity, UA Cloudy [facility] Specific [place], UA 1.015 1.001 - 1.035 [facility] pH, UA 5.0 5.0 - 8.0 [facility] Protein, UA 70 mg/dL (A) Negative [facility] Glucose, UA Negative Negative [facility] Ketones, UA Negative Negative [facility] Bilirubin, UA Negative Negative [facility] Blood, UA Large (A) Negative [facility] Nitrite, UA Negative Negative [facility] Leukocytes, UA Moderate (A) Negative [facility] Urobilinogen, UA 0.2 0.2 - 1.0 mg/dL [facility] RBC, UA 4,889 /HPF [facility] WBC, UA 206 /HPF [facility] Bacteria, UA Moderate [facility] Squam Epithel, UA 11 /HPF [facility] Specimen Source [facility] Specimen Urine Performing Organization Address City/State/Zipcode Phone Number [facility] [address] [place] [address] CENTER Urine culture (05/06/2018 10:42 PM CDT) Result ENTEROBACTER CLOACAE COMPLEX (A) [facility] Specimen Urine Organism Antibiotic Method Susceptibility [...] Sulfamethoxazole <=20: Susceptible complex Performing Organization Address [facility] Phone Number [address] [address] [place] Oxygen saturation, measured (05/06/2018 10:34 PM CDT) O2 Saturation (Measured) 70.8 % [facility] Specimen Blood Performing Organization Address [facility] Phone Number [address] [address] [place] Lactic Acid, Arterial (05/06/2018 10:34 PM CDT) Lactate, Art 0.8 0.5 - 2.2 mmol/L [facility] Specimen Blood, Arterial Performing Organization Address [facility] Phone Number [address] [address] [phone] CENTER Comprehensive metabolic panel (05/06/2018 10:34 PM CDT) Protein, Total 4.9 (L) 6.0 - 8.3 gm/dL [facility] Albumin 3.1 (L) 3.5 - 5.0 g/dL [facility] Alkaline Phosphatase 132 40 - 150 U/L [facility] Total Bilirubin 0.5 0.2 - 1.2 mg/dL [facility] Sodium 130 (L) 136 - 145 meq/L [facility] Potassium 4.4 3.5 - 5.1 meq/L [facility] Chloride 96 (L) 98 - 107 meq/L [facility] CO2 24 22 - 29 meq/L [facility] BUN 13 7 - 21 mg/dL [facility] Creatinine 4.33 (H) 0.57 - 1.25 mg/dL [facility] Glucose 85 70 - 105 mg/dL [facility] Calcium 8.8 8.4 - 10.2 mg/dL [facility] AST 27 5 - 34 U/L [facility] ALT 25 6 - 55 U/L [facility] EGFR 10Comment: ESTIMATED GFR mL/min/1.73 sq m [facility] IS NOT ACCURATE [facility] CREATININE CLEARANCE IN PREDICTING GLOMERULAR FILTRATION RATE. ESTIMATED GFR IS NOT APPLICABLE FOR DIALYSIS PATIENTS. Specimen Blood Performing Organization Address City/State/Zipcode Phone Number [facility] [address] [place] [id number] [phone] CENTER after 07/12/2017 Insurance Payer Benefit Plan / Group Subscriber ID Type Phone Address MEDICARE MEDICARE A B xxxxxxxxxxx Medicare AETNA - MGD CARE AET[employer] INDEMNITY NON CONTR xxxxxxxxx Comm Advance Directives For more information, please contact:[address] [phone] Code Status Date Activated Date Inactivated Comments [...]
[2018-07-13] MEDS ORDERED: ALBUTEROL 2.5 MG/3 ML NEB SOL ONE (23:08)
--- OUTSIDE RECORDS SUMMARY | 2018-07-13 23:08 | XMS REPORT ---
:1930 [facility] [address] [place] [address] Care Team Providers Name Role Phone ANTELMO HARTMANN Unavailable Unavailable Payers Payer Name Policy Type [...] Comments SODIUM (BEAKER) (test 138 meq/L 136-145 dlbj=567) POTASSIUM (BEAKER) (test 3.7 meq/L 3.5-5.1 foem=675) CHLORIDE (BEAKER) (test 103 meq/L 98-107 mdvf=033) CO2 (BEAKER) (test imgv=314) 26 meq/L 22-29 BLOOD UREA NITROGEN (BEAKER) 12 mg/dL 7-21 (test bvpz=276) CREATININE (BEAKER) (test 2.45 mg/dL 0.57-1.25 hemm=792) GLUCOSE RANDOM (BEAKER) 82 mg/dL 70-105 (test exlk=020) CALCIUM (BEAKER) (test 8.3 mg/dL 8.4-10.2 yfvd=078) EGFR (BEAKER) (test 19 mL/min/1.73 sq m ESTIMATED GFR IS NOT wvbe=2941) ACCURATE CREATININE CLEARANCE IN PREDICTING GLOMERULAR FILTRATION RATE. ESTIMATED GFR IS NOT APPLICABLE FOR DIALYSIS PATIENTS. [id number] 07:16:00 Test Item Value Reference Range Comments PHOSPHORUS (BEAKER) (test lttc=392) 3.2 mg/dL 2.3-4.7 [id number] 07:16:00 Test Item Value Reference Range Comments MAGNESIUM (BEAKER) (test dego=369) 1.8 mg/dL 1.6-2.6 CBC W/PLT COUNT & AUTO [id number] 06:23:00 Test Item Value Reference Range Comments WHITE BLOOD CELL COUNT (BEAKER) (test labh=394) 6.6 K/ L 3.5-10.5 RED BLOOD CELL COUNT (BEAKER) (test cnze=630) 3.38 M/ L 3.93-5.22 HEMOGLOBIN (BEAKER) (test ityr=496) 10.0 GM/DL 11.2-15.7 HEMATOCRIT (BEAKER) (test ejqh=903) 34.6 % 34.1-44.9 MEAN CORPUSCULAR VOLUME (BEAKER) (test kgon=350) 102.4 fL 79.4-94.8 MEAN CORPUSCULAR HEMOGLOBIN (BEAKER) (test 29.6 pg 25.6-32.2 ztep=787) MEAN CORPUSCULAR HEMOGLOBIN CONC (BEAKER) (test 28.9 GM/DL 32.2-35.5 zgow=374) RED CELL DISTRIBUTION WIDTH (BEAKER) (test 19.6 % 11.7-14.4 lkoq=448) PLATELET COUNT (BEAKER) (test hvvs=986) 129 K/CU MM 150-450 MEAN PLATELET VOLUME (BEAKER) (test tlnc=350) 11.0 fL 9.4-12.3 NUCLEATED RED BLOOD CELLS (BEAKER) (test 0 /100 WBC 0-0 hojt=202) NEUTROPHILS RELATIVE PERCENT (BEAKER) (test 76 % dyoo=085) LYMPHOCYTES RELATIVE PERCENT (BEAKER) (test 10 % lkfj=705) MONOCYTES RELATIVE PERCENT (BEAKER) (test 8 % krvf=580) EOSINOPHILS RELATIVE PERCENT (BEAKER) (test 6 % pegz=546) BASOPHILS RELATIVE PERCENT (BEAKER) (test 1 % uvev=752) NEUTROPHILS ABSOLUTE COUNT (BEAKER) (test 5.04 K/ L 1.56-6.13 bcof=860) LYMPHOCYTES ABSOLUTE COUNT (BEAKER) (test 0.64 K/ L 1.18-3.74 vaxd=157) MONOCYTES ABSOLUTE COUNT (BEAKER) (test 0.50 K/ L 0.24-0.36 zozo=859) EOSINOPHILS ABSOLUTE COUNT (BEAKER) (test 0.36 K/ L 0.04-0.36 rdok=365) BASOPHILS ABSOLUTE COUNT (BEAKER) (test 0.03 K/ L 0.01-0.08 bdve=821) IMMATURE GRANULOCYTES-RELATIVE PERCENT (BEAKER) 0 % 0-1 (test vzld=9465) BASIC METABOLIC [id number] 08:14:00 Test Item Value Reference Range Comments SODIUM (BEAKER) (test 136 meq/L 136-145 wtyc=015) POTASSIUM (BEAKER) (test 3.8 meq/L 3.5-5.1 xgjy=842) CHLORIDE (BEAKER) (test 102 meq/L 98-107 oopk=446) CO2 (BEAKER) (test 25 meq/L 22-29 suag=982) BLOOD UREA NITROGEN 33 mg/dL 7-21 (BEAKER) (test xflt=019) CREATININE (BEAKER) (test 3.86 mg/dL 0.57-1.25 jkfk=554) GLUCOSE RANDOM (BEAKER) 76 mg/dL 70-105 (test xjta=766) CALCIUM (BEAKER) (test 8.3 mg/dL 8.4-10.2 joqq=717) EGFR (BEAKER) (test 11 mL/min/1.73 sq m ESTIMATED GFR IS NOT gnex=6185) ACCURATE CREATININE CLEARANCE IN PREDICTING GLOMERULAR FILTRATION RATE. ESTIMATED GFR IS NOT APPLICABLE FOR DIALYSIS PATIENTS. [id number] 08:01:00 Test Item Value Reference Range Comments PHOSPHORUS (BEAKER) (test rfmy=422) 4.4 mg/dL 2.3-4.7 [id number] 08:01:00 Test Item Value Reference Range Comments MAGNESIUM (BEAKER) (test qcdf=392) 1.9 mg/dL 1.6-2.6 CBC W/PLT COUNT & AUTO [id number] 06:38:00 Test Item Value Reference Range Comments WHITE BLOOD CELL COUNT (BEAKER) (test xone=444) 5.8 K/ L 3.5-10.5 RED BLOOD CELL COUNT (BEAKER) (test guoy=855) 3.11 M/ L 3.93-5.22 HEMOGLOBIN (BEAKER) (test hera=640) 9.3 GM/DL 11.2-15.7 HEMATOCRIT (BEAKER) (test bulu=839) 31.9 % 34.1-44.9 MEAN CORPUSCULAR VOLUME (BEAKER) (test nmmh=860) 102.6 fL 79.4-94.8 MEAN CORPUSCULAR HEMOGLOBIN (BEAKER) (test 29.9 pg 25.6-32.2 wnzr=985) MEAN CORPUSCULAR HEMOGLOBIN CONC (BEAKER) (test 29.2 GM/DL 32.2-35.5 dfmb=153) RED CELL DISTRIBUTION WIDTH (BEAKER) (test 19.9 % 11.7-14.4 ddek=580) PLATELET COUNT (BEAKER) (test jybi=713) 138 K/CU MM 150-450 MEAN PLATELET VOLUME (BEAKER) (test nvxo=293) 11.2 fL 9.4-12.3 NUCLEATED RED BLOOD CELLS (BEAKER) (test 0 /100 WBC 0-0 fitf=312) NEUTROPHILS RELATIVE PERCENT (BEAKER) (test 76 % fvbc=537) LYMPHOCYTES RELATIVE PERCENT (BEAKER) (test 13 % depu=623) MONOCYTES RELATIVE PERCENT (BEAKER) (test 6 % lfec=614) EOSINOPHILS RELATIVE PERCENT (BEAKER) (test 5 % hddg=073) BASOPHILS RELATIVE PERCENT (BEAKER) (test 0 % oscx=334) NEUTROPHILS ABSOLUTE COUNT (BEAKER) (test 4.39 K/ L 1.56-6.13 sxeg=779) LYMPHOCYTES ABSOLUTE COUNT (BEAKER) (test 0.75 K/ L 1.18-3.74 ccjl=382) MONOCYTES ABSOLUTE COUNT (BEAKER) (test 0.35 K/ L 0.24-0.36 ykad=724) EOSINOPHILS ABSOLUTE COUNT (BEAKER) (test 0.27 K/ L 0.04-0.36 slyt=017) BASOPHILS ABSOLUTE COUNT (BEAKER) (test 0.01 K/ L 0.01-0.08 sffe=268) IMMATURE GRANULOCYTES-RELATIVE PERCENT (BEAKER) 1 % 0-1 (test baze=2695) OCCULT BLOOD, [id number] 17:25:00 Test Item Value Reference Range Comments FECAL OCCULT BLOOD (BEAKER) (test kxhe=454) Positive Negative [id number] 05:54:00 Test Item Value Reference Range Comments PHOSPHORUS (BEAKER) (test ghku=470) 3.9 mg/dL 2.3-4.7 [id number] 05:54:00 Test Item Value Reference Range Comments MAGNESIUM (BEAKER) (test edvk=148) 2.0 mg/dL 1.6-2.6 BASIC METABOLIC [id number] 05:54:00 Test Item Value Reference Range Comments SODIUM (BEAKER) (test 139 meq/L 136-145 dkyb=841) POTASSIUM (BEAKER) (test 3.9 meq/L 3.5-5.1 rxrs=665) CHLORIDE (BEAKER) (test 103 meq/L 98-107 cxcg=794) CO2 (BEAKER) (test 29 meq/L 22-29 uast=965) BLOOD UREA NITROGEN 23 mg/dL 7-21 (BEAKER) (test lhyi=823) CREATININE (BEAKER) (test 2.76 mg/dL 0.57-1.25 fggd=332) GLUCOSE RANDOM (BEAKER) 105 mg/dL 70-105 (test imko=902) CALCIUM (BEAKER) (test 8.2 mg/dL 8.4-10.2 hrll=859) EGFR (BEAKER) (test 16 mL/min/1.73 sq m ESTIMATED GFR IS NOT jvkf=9890) ACCURATE CREATININE CLEARANCE IN PREDICTING GLOMERULAR FILTRATION RATE. ESTIMATED GFR IS NOT APPLICABLE FOR DIALYSIS PATIENTS. CBC W/PLT COUNT & AUTO [id number] 05:38:00 Test Item Value Reference Range Comments WHITE BLOOD CELL COUNT (BEAKER) (test cfcs=967) 7.5 K/ L 3.5-10.5 RED BLOOD CELL COUNT (BEAKER) (test bmob=529) 3.08 M/ L 3.93-5.22 HEMOGLOBIN (BEAKER) (test npqc=056) 9.0 GM/DL 11.2-15.7 HEMATOCRIT (BEAKER) (test cplf=236) 31.7 % 34.1-44.9 MEAN CORPUSCULAR VOLUME (BEAKER) (test yugu=221) 102.9 fL 79.4-94.8 MEAN CORPUSCULAR HEMOGLOBIN (BEAKER) (test 29.2 pg 25.6-32.2 iesk=239) MEAN CORPUSCULAR HEMOGLOBIN CONC (BEAKER) (test 28.4 GM/DL 32.2-35.5 ydve=461) RED CELL DISTRIBUTION WIDTH (BEAKER) (test 20.3 % 11.7-14.4 jerc=948) PLATELET COUNT (BEAKER) (test iqlw=454) 152 K/CU MM 150-450 MEAN PLATELET VOLUME (BEAKER) (test yxvc=496) 11.0 fL 9.4-12.3 NUCLEATED RED BLOOD CELLS (BEAKER) (test 0 /100 WBC 0-0 eitq=537) NEUTROPHILS RELATIVE PERCENT (BEAKER) (test 77 % jzhu=931) LYMPHOCYTES RELATIVE PERCENT (BEAKER) (test 12 % ixlg=120) MONOCYTES RELATIVE PERCENT (BEAKER) (test 8 % fygo=725) EOSINOPHILS RELATIVE PERCENT (BEAKER) (test 2 % ccbg=409) BASOPHILS RELATIVE PERCENT (BEAKER) (test 0 % zydi=310) NEUTROPHILS ABSOLUTE COUNT (BEAKER) (test 5.80 K/ L 1.56-6.13 ydcd=109) LYMPHOCYTES ABSOLUTE COUNT (BEAKER) (test 0.87 K/ L 1.18-3.74 ampy=612) MONOCYTES ABSOLUTE COUNT (BEAKER) (test 0.61 K/ L 0.24-0.36 daoo=712) EOSINOPHILS ABSOLUTE COUNT (BEAKER) (test 0.18 K/ L 0.04-0.36 ubdk=893) BASOPHILS ABSOLUTE COUNT (BEAKER) (test 0.02 K/ L 0.01-0.08 ivsn=388) IMMATURE GRANULOCYTES-RELATIVE PERCENT (BEAKER) 1 % 0-1 (test tdho=8591) POCT-GLUCOSE [id number] 22:40:00 Test Item Value Reference Range Comments POC-GLUCOSE METER (BEAKER) 109 mg/dL 70-110 TESTED AT [address] (test dhla=1930) [facility] [address] POCT-GLUCOSE [id number] 18:24:00 Test Item Value Reference Range Comments POC-GLUCOSE METER (BEAKER) 111 mg/dL 70-110 TESTED AT [address] (test uoye=0200) [facility] [address] POCT-GLUCOSE [id number] 13:41:00 Test Item Value Reference Range Comments POC-GLUCOSE METER (BEAKER) 100 mg/dL 70-110 TESTED AT [address] (test ueyb=6162) [facility] [address] POCT-GLUCOSE [id number] 06:37:00 Test Item Value Reference Range Comments POC-GLUCOSE METER (BEAKER) 94 mg/dL 70-110 TESTED AT [address] (test bzyf=9316) [facility] [address] [id number] 06:26:00 Test Item Value Reference Range Comments PHOSPHORUS (BEAKER) (test pxsh=532) 5.9 mg/dL 2.3-4.7 [id number] 06:26:00 Test Item Value Reference Range Comments MAGNESIUM (BEAKER) (test xqfj=589) 2.0 mg/dL 1.6-2.6 BASIC METABOLIC [id number] 06:26:00 Test Item Value Reference Range Comments SODIUM (BEAKER) (test 138 meq/L 136-145 jonn=236) POTASSIUM (BEAKER) (test 4.8 meq/L 3.5-5.1 anxi=571) CHLORIDE (BEAKER) (test 104 meq/L 98-107 xlld=579) CO2 (BEAKER) (test 21 meq/L 22-29 shbc=789) BLOOD UREA NITROGEN 40 mg/dL 7-21 (BEAKER) (test kkzz=319) CREATININE (BEAKER) (test 3.48 mg/dL 0.57-1.25 scap=639) GLUCOSE RANDOM (BEAKER) 82 mg/dL 70-105 (test xxuf=828) CALCIUM (BEAKER) (test 7.7 mg/dL 8.4-10.2 zwuw=154) EGFR (BEAKER) (test 12 mL/min/1.73 sq m ESTIMATED GFR IS NOT osot=3350) ACCURATE CREATININE CLEARANCE IN PREDICTING GLOMERULAR FILTRATION RATE. ESTIMATED GFR IS NOT APPLICABLE FOR DIALYSIS PATIENTS. CBC W/PLT COUNT & AUTO [id number] 06:05:00 Test Item Value Reference Range Comments WHITE BLOOD CELL COUNT (BEAKER) (test ddbv=057) 6.6 K/ L 3.5-10.5 RED BLOOD CELL COUNT (BEAKER) (test mebv=209) 3.13 M/ L 3.93-5.22 HEMOGLOBIN (BEAKER) (test xcyr=459) 9.1 GM/DL 11.2-15.7 HEMATOCRIT (BEAKER) (test krjo=790) 32.5 % 34.1-44.9 MEAN CORPUSCULAR VOLUME (BEAKER) (test xzqs=921) 103.8 fL 79.4-94.8 MEAN CORPUSCULAR HEMOGLOBIN (BEAKER) (test 29.1 pg 25.6-32.2 qanr=355) MEAN CORPUSCULAR HEMOGLOBIN CONC (BEAKER) (test 28.0 GM/DL 32.2-35.5 ezgy=132) RED CELL DISTRIBUTION WIDTH (BEAKER) (test 20.5 % 11.7-14.4 icil=470) PLATELET COUNT (BEAKER) (test gikk=042) 74 K/CU MM 150-450 MEAN PLATELET VOLUME (BEAKER) (test eoqp=917) 12.0 fL 9.4-12.3 NUCLEATED RED BLOOD CELLS (BEAKER) (test 0 /100 WBC 0-0 dhqz=600) NEUTROPHILS RELATIVE PERCENT (BEAKER) (test 76 % jhjw=341) LYMPHOCYTES RELATIVE PERCENT (BEAKER) (test 14 % jcot=725) MONOCYTES RELATIVE PERCENT (BEAKER) (test 9 % ojix=695) EOSINOPHILS RELATIVE PERCENT (BEAKER) (test 0 % xjld=707) BASOPHILS RELATIVE PERCENT (BEAKER) (test 0 % tcgc=338) NEUTROPHILS ABSOLUTE COUNT (BEAKER) (test 5.01 K/ L 1.56-6.13 tqgv=022) LYMPHOCYTES ABSOLUTE COUNT (BEAKER) (test 0.92 K/ L 1.18-3.74 splk=702) MONOCYTES ABSOLUTE COUNT (BEAKER) (test juht=616) 0.58 K/ L 0.24-0.36 EOSINOPHILS ABSOLUTE COUNT (BEAKER) (test 0.01 K/ L 0.04-0.36 bzat=036) BASOPHILS ABSOLUTE COUNT (BEAKER) (test enbo=983) 0.01 K/ L 0.01-0.08 IMMATURE GRANULOCYTES-RELATIVE PERCENT (BEAKER) 1 % 0-1 (test qurv=9908) BLOOD [id number] 02:01:00 Test Item Value Reference Range Comments CULTURE (BEAKER) (test aakm=7940) No growth in 5 days POCT-GLUCOSE [id number] 00:11:00 Test Item Value Reference Range Comments POC-GLUCOSE METER (BEAKER) 158 mg/dL 70-110 TESTED AT [address] (test dhhs=0992) [place] [address] RAD, CHEST, 1 VIEW, NON [id number] 13:55:00Reason for exam:->short of breathShould this be performed at the bedside?->YesFINAL REPORT AP chest HISTORY: Shortness of breath. COMPARISON: 05/09/2017. IMPRESSION: Endotracheal tube removed. Dialysis catheter and AICD present. Cardiomegaly. Thoracic aortic ectasia. Clear lungs. Signed: Chance Hernandez MDReport Verified Date/Time: 05/11/2018 13:55:01 Reading Location: [address] Transitional Reading Room POCT-GLUCOSE [id number] 13:02:00 Test Item Value Reference Range Comments POC-GLUCOSE METER (BEAKER) 135 mg/dL 70-110 TESTED AT [address] (test buhv=8466) [place] [address] B-TYPE NATRIURETIC FACTOR (BNP)2018-05-11 12:34:00 Test Item Value Reference Range Comments B-TYPE NATRIURETIC PEPTIDE (BEAKER) (test 99596 pg/mL 0-100 ntfg=158) POCT-GLUCOSE [id number] 08:16:00 Test Item Value Reference Range Comments POC-GLUCOSE METER (BEAKER) 107 mg/dL 70-110 TESTED AT [address] (test tuga=0057) [place] [address] BASIC METABOLIC [id number] 04:08:00 Test Item Value Reference Range Comments SODIUM (BEAKER) (test 139 meq/L 136-145 dpzt=235) POTASSIUM (BEAKER) (test 4.5 meq/L 3.5-5.1 dvyh=824) CHLORIDE (BEAKER) (test 103 meq/L 98-107 uiby=977) CO2 (BEAKER) (test 26 meq/L 22-29 cthb=169) BLOOD UREA NITROGEN 23 mg/dL 7-21 (BEAKER) (test bici=938) CREATININE (BEAKER) (test 2.34 mg/dL 0.57-1.25 igvq=322) GLUCOSE RANDOM (BEAKER) 93 mg/dL 70-105 (test hjtx=826) CALCIUM (BEAKER) (test 8.2 mg/dL 8.4-10.2 bwrq=173) EGFR (BEAKER) (test 20 mL/min/1.73 sq m ESTIMATED GFR IS NOT zaiw=0566) ACCURATE CREATININE CLEARANCE IN PREDICTING GLOMERULAR FILTRATION RATE. ESTIMATED GFR IS NOT APPLICABLE FOR DIALYSIS PATIENTS. CBC W/PLT COUNT & AUTO [id number] 03:56:00 Test Item Value Reference Range Comments WHITE BLOOD CELL COUNT (BEAKER) (test opax=859) 7.7 K/ L 3.5-10.5 RED BLOOD CELL COUNT (BEAKER) (test sddh=855) 2.86 M/ L 3.93-5.22 HEMOGLOBIN (BEAKER) (test fkpl=334) 8.3 GM/DL 11.2-15.7 HEMATOCRIT (BEAKER) (test vxif=580) 28.9 % 34.1-44.9 MEAN CORPUSCULAR VOLUME (BEAKER) (test eudi=812) 101.0 fL 79.4-94.8 MEAN CORPUSCULAR HEMOGLOBIN (BEAKER) (test 29.0 pg 25.6-32.2 frza=017) MEAN CORPUSCULAR HEMOGLOBIN CONC (BEAKER) (test 28.7 GM/DL 32.2-35.5 djoc=805) RED CELL DISTRIBUTION WIDTH (BEAKER) (test 21.3 % 11.7-14.4 bxoh=170) PLATELET COUNT (BEAKER) (test nnux=966) 145 K/CU MM 150-450 MEAN PLATELET VOLUME (BEAKER) (test ghjx=221) 11.0 fL 9.4-12.3 NUCLEATED RED BLOOD CELLS (BEAKER) (test 0 /100 WBC 0-0 zlbo=679) NEUTROPHILS RELATIVE PERCENT (BEAKER) (test 79 % iiau=490) LYMPHOCYTES RELATIVE PERCENT (BEAKER) (test 11 % lsaa=394) MONOCYTES RELATIVE PERCENT (BEAKER) (test 9 % uugx=749) EOSINOPHILS RELATIVE PERCENT (BEAKER) (test 0 % bqcz=071) BASOPHILS RELATIVE PERCENT (BEAKER) (test 0 % eaca=395) NEUTROPHILS ABSOLUTE COUNT (BEAKER) (test 6.07 K/ L 1.56-6.13 iwhk=635) LYMPHOCYTES ABSOLUTE COUNT (BEAKER) (test 0.87 K/ L 1.18-3.74 lqyl=789) MONOCYTES ABSOLUTE COUNT (BEAKER) (test 0.66 K/ L 0.24-0.36 hqwc=867) EOSINOPHILS ABSOLUTE COUNT (BEAKER) (test 0.02 K/ L 0.04-0.36 qqbv=837) BASOPHILS ABSOLUTE COUNT (BEAKER) (test 0.01 K/ L 0.01-0.08 lonf=912) IMMATURE GRANULOCYTES-RELATIVE PERCENT (BEAKER) 1 % 0-1 (test vojl=5823) [id number] 03:55:00 Test Item Value Reference Range Comments PHOSPHORUS (BEAKER) (test ddvy=870) 5.1 mg/dL 2.3-4.7 [id number] 03:55:00 Test Item Value Reference Range Comments MAGNESIUM (BEAKER) (test sjht=062) 1.9 mg/dL 1.6-2.6 POCT-GLUCOSE [id number] 00:23:00 Test Item Value Reference Range Comments POC-GLUCOSE METER (BEAKER) 120 mg/dL 70-110 TESTED AT [facility] [address] [place] [address] (test vdrj=2500) [facility] [address] SPUTUM CULTURE + GRAM [id number] 20:21:00 Test Item Value Reference Range Comments CULTURE (BEAKER) (test METHICILLIN RESISTANT <1+ Methicillin berr=2314) STAPHYLOCOCCUS AUREUS resistant Staphylococcus aureus Clindamycin (test code=10) Erythromycin (test code=4) Linezolid (test code=40) Nitrofurantoin (test code=23) Oxacillin (test code=14) Rifampin (test code=43) Tetracycline (test code=2) Trimethoprim + Sulfamethoxazole (test code=47) Vancomycin (test code=13) GRAM STAIN RESULT <1+ White blood cells (BEAKER) (test xbjl=2556) seen GRAM STAIN RESULT 0-5 epithelial cells (BEAKER) (test szcv=558682) GRAM STAIN RESULT 2+ gram positive cocci (BEAKER) (test in chains and pairs njcc=210412) 2+ Normal respiratory baldev presentPOCT-GLUCOSE [id number] 17:39:00 Test Item Value Reference Range Comments POC-GLUCOSE METER (BEAKER) 186 mg/dL 70-110 TESTED AT [address] (test kvzm=5474) [place] [address] POCT-GLUCOSE [id number] 12:43:00 Test Item Value Reference Range Comments POC-GLUCOSE METER (BEAKER) 189 mg/dL 70-110 TESTED AT [address] (test roge=4463) [place] [address] [id number] 11:27:00 Test Item Value Reference Range Comments PROTIME (BEAKER) (test vvua=066) 15.0 seconds 11.7-14.7 INR (BEAKER) (test fnrj=716) 1.1 <=5.9 PARTIAL THROMBOPLASTIN TIME (BEAKER) (test 41.5 seconds 22.5-36.0 xrul=975) RECOMMENDED COUMADIN/WARFARIN INR THERAPY RANGESSTANDARD DOSE: 2.0 - 3.0 Includes: PROPHYLAXIS forvenous thrombosis, systemic embolization; TREATMENT for venous thrombosis and/or pulmonary embolus.HIGH RISK: Target INR is 2.5-3.5 for patients with mechanical heart valves.POCT-GLUCOSE [id number] 06:52:00 Test Item Value Reference Range Comments POC-GLUCOSE METER (BEAKER) 204 mg/dL 70-110 TESTED AT [address] (test qete=6818) [place] [id number] BASIC METABOLIC [id number] 06:44:00 Test Item Value Reference Range Comments SODIUM (BEAKER) (test 138 meq/L 136-145 hwyv=293) POTASSIUM (BEAKER) (test 5.2 meq/L 3.5-5.1 itmo=079) CHLORIDE (BEAKER) (test 102 meq/L 98-107 ctmj=023) CO2 (BEAKER) (test 25 meq/L 22-29 rrwy=851) BLOOD UREA NITROGEN 36 mg/dL 7-21 (BEAKER) (test dgen=885) CREATININE (BEAKER) (test 2.77 mg/dL 0.57-1.25 evom=324) GLUCOSE RANDOM (BEAKER) 142 mg/dL 70-105 (test fyxq=830) CALCIUM (BEAKER) (test 8.0 mg/dL 8.4-10.2 xogi=081) EGFR (BEAKER) (test 16 mL/min/1.73 sq m ESTIMATED GFR IS NOT tvez=0653) ACCURATE CREATININE CLEARANCE IN PREDICTING GLOMERULAR FILTRATION RATE. ESTIMATED GFR IS NOT APPLICABLE FOR DIALYSIS PATIENTS. [id number] 06:14:00 Test Item Value Reference Range Comments PHOSPHORUS (BEAKER) (test uzvx=848) 6.1 mg/dL 2.3-4.7 [id number] 06:14:00 Test Item Value Reference Range Comments MAGNESIUM (BEAKER) (test nixy=006) 2.1 mg/dL 1.6-2.6 CBC W/PLT COUNT & AUTO [id number] 06:10:00 Test Item Value Reference Range Comments WHITE BLOOD CELL COUNT (BEAKER) (test oipp=553) 7.2 K/ L 3.5-10.5 RED BLOOD CELL COUNT (BEAKER) (test caaj=358) 2.97 M/ L 3.93-5.22 HEMOGLOBIN (BEAKER) (test hpbw=509) 8.9 GM/DL 11.2-15.7 HEMATOCRIT (BEAKER) (test xpfj=280) 30.3 % 34.1-44.9 MEAN CORPUSCULAR VOLUME (BEAKER) (test waci=739) 102.0 fL 79.4-94.8 MEAN CORPUSCULAR HEMOGLOBIN (BEAKER) (test 30.0 pg 25.6-32.2 wcai=855) MEAN CORPUSCULAR HEMOGLOBIN CONC (BEAKER) (test 29.4 GM/DL 32.2-35.5 ubrk=156) RED CELL DISTRIBUTION WIDTH (BEAKER) (test 21.9 % 11.7-14.4 fpug=590) PLATELET COUNT (BEAKER) (test wedh=017) 160 K/CU MM 150-450 MEAN PLATELET VOLUME (BEAKER) (test cjgn=483) 11.0 fL 9.4-12.3 NUCLEATED RED BLOOD CELLS (BEAKER) (test 0 /100 WBC 0-0 qxcp=619) NEUTROPHILS RELATIVE PERCENT (BEAKER) (test 79 % jfyu=058) LYMPHOCYTES RELATIVE PERCENT (BEAKER) (test 11 % lrnh=399) MONOCYTES RELATIVE PERCENT (BEAKER) (test 9 % vyvk=907) EOSINOPHILS RELATIVE PERCENT (BEAKER) (test 0 % abcp=305) BASOPHILS RELATIVE PERCENT (BEAKER) (test 0 % cmry=766) NEUTROPHILS ABSOLUTE COUNT (BEAKER) (test 5.74 K/ L 1.56-6.13 wugp=624) LYMPHOCYTES ABSOLUTE COUNT (BEAKER) (test 0.78 K/ L 1.18-3.74 oegw=528) MONOCYTES ABSOLUTE COUNT (BEAKER) (test 0.65 K/ L 0.24-0.36 vlmq=562) EOSINOPHILS ABSOLUTE COUNT (BEAKER) (test 0.00 K/ L 0.04-0.36 dcla=687) BASOPHILS ABSOLUTE COUNT (BEAKER) (test 0.01 K/ L 0.01-0.08 tkxl=439) IMMATURE GRANULOCYTES-RELATIVE PERCENT (BEAKER) 1 % 0-1 (test gbvs=8797) [id number] 05:48:00 Test Item Value Reference Range Comments PARTIAL THROMBOPLASTIN TIME (BEAKER) (test 28.8 seconds 22.5-36.0 nkyz=846) POCT-GLUCOSE [id number] 00:19:00 Test Item Value Reference Range Comments POC-GLUCOSE METER (BEAKER) 216 mg/dL 70-110 TESTED AT [address] (test qghf=3070) [facility] [id number] POCT-GLUCOSE [id number] 17:43:00 Test Item Value Reference Range Comments POC-GLUCOSE METER (BEAKER) 266 mg/dL 70-110 TESTED AT [address] (test eapy=8906) [facility] [id number] 15:42:00 Test Item Value Reference Range Comments PROTIME (BEAKER) (test hueo=886) 15.5 seconds 11.7-14.7 INR (BEAKER) (test fprh=013) 1.2 <=5.9 PARTIAL THROMBOPLASTIN TIME (BEAKER) (test 83.0 seconds 22.5-36.0 njwg=771) RECOMMENDED COUMADIN/WARFARIN INR THERAPY RANGESSTANDARD DOSE: 2.0 - 3.0 Includes: PROPHYLAXIS forvenous thrombosis, systemic embolization; TREATMENT for venous thrombosis and/or pulmonary embolus.HIGH RISK: Target INR is 2.5-3.5 for patients with mechanical heart valves.POCT-GLUCOSE [id number] 12:48:00 Test Item Value Reference Range Comments POC-GLUCOSE METER (BEAKER) 211 mg/dL 70-110 TESTED AT [address] (test ezxs=5416) [place] [id number] RAD, CHEST, 1 VIEW, NON [id number] 07:51:00Reason for exam:->Retracted ETT back. Now 19 @ lipShould this be performed at the bedside?->YesFINAL REPORT [...] Verified Date/ Time: 05/09/2018 07:51:23 Reading Location: [facility] Diagnostic Imaging Reading Room - [place] [id number] Electronically signed by: FOREST MONTAGUE MD on 2018 07:51 AMPOCT-GLUCOSE [id number] 06:34:00 Test Item Value Reference Range Comments POC-GLUCOSE METER (BEAKER) 206 mg/dL 70-110 TESTED AT [address] (test pisk=4707) [place] [id number] HEPARIN ASSAY - [id number] 06:24:00 Test Item Value Reference Range Comments UNFRACTIONATED HEPARIN-ANTI 10A (BEAKER) (test 0.16 u/ml 0.30-0.70 dkvv=1306) Recommendations for Monitoring Unfractionated Heparin Therapeutic Range: 0.3- 0.7 u/mL with continuous IV infusionCBC W/PLT COUNT & AUTO [id number] 05:49:00 Test Item Value Reference Range Comments WHITE BLOOD CELL COUNT (BEAKER) (test vfdq=215) 6.3 K/ L 3.5-10.5 RED BLOOD CELL COUNT (BEAKER) (test rftz=243) 2.92 M/ L 3.93-5.22 HEMOGLOBIN (BEAKER) (test ivzj=918) 8.5 GM/DL 11.2-15.7 HEMATOCRIT (BEAKER) (test jucl=968) 28.8 % 34.1-44.9 MEAN CORPUSCULAR VOLUME (BEAKER) (test lbca=399) 98.6 fL 79.4-94.8 MEAN CORPUSCULAR HEMOGLOBIN (BEAKER) (test 29.1 pg 25.6-32.2 tsii=297) MEAN CORPUSCULAR HEMOGLOBIN CONC (BEAKER) (test 29.5 GM/DL 32.2-35.5 brhm=870) RED CELL DISTRIBUTION WIDTH (BEAKER) (test 21.8 % 11.7-14.4 ypqk=648) PLATELET COUNT (BEAKER) (test vhbs=549) 147 K/CU MM 150-450 MEAN PLATELET VOLUME (BEAKER) (test xuot=200) 10.4 fL 9.4-12.3 NUCLEATED RED BLOOD CELLS (BEAKER) (test 0 /100 WBC 0-0 bwah=829) NEUTROPHILS RELATIVE PERCENT (BEAKER) (test 77 % awoi=377) LYMPHOCYTES RELATIVE PERCENT (BEAKER) (test 9 % zhcm=684) MONOCYTES RELATIVE PERCENT (BEAKER) (test 13 % fojk=294) EOSINOPHILS RELATIVE PERCENT (BEAKER) (test 0 % psfs=455) BASOPHILS RELATIVE PERCENT (BEAKER) (test 0 % wqfy=343) NEUTROPHILS ABSOLUTE COUNT (BEAKER) (test 4.91 K/ L 1.56-6.13 pglx=450) LYMPHOCYTES ABSOLUTE COUNT (BEAKER) (test 0.59 K/ L 1.18-3.74 kxdd=502) MONOCYTES ABSOLUTE COUNT (BEAKER) (test 0.79 K/ L 0.24-0.36 xlpc=086) EOSINOPHILS ABSOLUTE COUNT (BEAKER) (test 0.01 K/ L 0.04-0.36 mruz=354) BASOPHILS ABSOLUTE COUNT (BEAKER) (test 0.01 K/ L 0.01-0.08 rzcl=937) IMMATURE GRANULOCYTES-RELATIVE PERCENT (BEAKER) 1 % 0-1 (test gepn=1043) [id number] 05:33:00 Test Item Value Reference Range Comments PROTIME (BEAKER) (test bwuj=589) 15.3 seconds 11.7-14.7 INR (BEAKER) (test akfu=553) 1.2 <=5.9 PARTIAL THROMBOPLASTIN TIME (BEAKER) (test 76.7 seconds 22.5-36.0 ovph=131) RECOMMENDED COUMADIN/WARFARIN INR THERAPY RANGESSTANDARD DOSE: 2.0 - 3.0 Includes: PROPHYLAXIS forvenous thrombosis, systemic embolization; TREATMENT for venous thrombosis and/or pulmonary embolus.HIGH RISK: Target INR is 2.5-3.5 for patients with mechanical heart valves.RAD, CHEST, 1 VIEW, NON [id number] 03:58:00Reason for exam:->intubatedShould this be performed at [...] MDReport VerifiedDate/ Time: 05/09/2018 03:58:24 Reading Location: [address] Reading Room [id number] 03:12:00 Test Item Value Reference Range Comments PROCALCITONIN (BEAKER) (test odyy=5067) 0.29 ng/mL <0.05 SEPSIS RISK (ng/mL)Low: 0.05-0.50Intermediate: 0.51-2.00High: & gt;=2.01PT/[id number] 03:12:00 Test Item Value Reference Range Comments PROTIME (BEAKER) (test qqcx=409) 16.2 seconds 11.7-14.7 INR (BEAKER) (test kwii=843) 1.3 <=5.9 PARTIAL THROMBOPLASTIN TIME (BEAKER) (test > seconds 22.5-36.0 uowu=609) RECOMMENDED COUMADIN/WARFARIN INR THERAPY RANGESSTANDARD DOSE: 2.0 - 3.0 Includes: PROPHYLAXIS forvenous thrombosis, systemic embolization; TREATMENT for venous thrombosis and/or pulmonary embolus.HIGH RISK: Target INR is 2.5-3.5 for patients with mechanical heart valves.[id number] 03:04:00 Test Item Value Reference Range Comments PHOSPHORUS (BEAKER) (test hiap=663) 1.5 mg/dL 2.3-4.7 BASIC METABOLIC [id number] 03:01:00 Test Item Value Reference Range Comments SODIUM (BEAKER) (test 136 meq/L 136-145 gass=728) POTASSIUM (BEAKER) (test 3.9 meq/L 3.5-5.1 aubc=730) CHLORIDE (BEAKER) (test 103 meq/L 98-107 yfpc=378) CO2 (BEAKER) (test 26 meq/L 22-29 safz=300) BLOOD UREA NITROGEN 17 mg/dL 7-21 (BEAKER) (test sryx=550) CREATININE (BEAKER) (test 1.76 mg/dL 0.57-1.25 dtwq=232) GLUCOSE RANDOM (BEAKER) 187 mg/dL 70-105 (test rfik=885) CALCIUM (BEAKER) (test 8.4 mg/dL 8.4-10.2 fbgq=995) EGFR (BEAKER) (test 27 mL/min/1.73 sq m ESTIMATED GFR IS NOT qrsc=8464) ACCURATE CREATININE CLEARANCE IN PREDICTING GLOMERULAR FILTRATION RATE. ESTIMATED GFR IS NOT APPLICABLE FOR DIALYSIS PATIENTS. [id number] 02:55:00 Test Item Value Reference Range Comments MAGNESIUM (BEAKER) (test ggph=739) 2.0 mg/dL 1.6-2.6 CBC W/PLT COUNT & AUTO [id number] 02:34:00 Test Item Value Reference Range Comments WHITE BLOOD CELL COUNT (BEAKER) (test ztnj=688) 5.7 K/ L 3.5-10.5 RED BLOOD CELL COUNT (BEAKER) (test svmn=878) 2.77 M/ L 3.93-5.22 HEMOGLOBIN (BEAKER) (test gtoa=775) 7.9 GM/DL 11.2-15.7 HEMATOCRIT (BEAKER) (test vstr=775) 27.0 % 34.1-44.9 MEAN CORPUSCULAR VOLUME (BEAKER) (test impr=075) 97.5 fL 79.4-94.8 MEAN CORPUSCULAR HEMOGLOBIN (BEAKER) (test 28.5 pg 25.6-32.2 jqhp=789) MEAN CORPUSCULAR HEMOGLOBIN CONC (BEAKER) (test 29.3 GM/DL 32.2-35.5 izcb=021) RED CELL DISTRIBUTION WIDTH (BEAKER) (test 21.6 % 11.7-14.4 dbaa=772) PLATELET COUNT (BEAKER) (test pnpu=543) 137 K/CU MM 150-450 MEAN PLATELET VOLUME (BEAKER) (test kvsb=805) 10.6 fL 9.4-12.3 NUCLEATED RED BLOOD CELLS (BEAKER) (test 0 /100 WBC 0-0 lscr=232) NEUTROPHILS RELATIVE PERCENT (BEAKER) (test 80 % inuu=455) LYMPHOCYTES RELATIVE PERCENT (BEAKER) (test 9 % vjpj=039) MONOCYTES RELATIVE PERCENT (BEAKER) (test 12 % rvwy=067) EOSINOPHILS RELATIVE PERCENT (BEAKER) (test 0 % jfha=263) BASOPHILS RELATIVE PERCENT (BEAKER) (test 0 % rguy=217) NEUTROPHILS ABSOLUTE COUNT (BEAKER) (test 4.54 K/ L 1.56-6.13 aorl=478) LYMPHOCYTES ABSOLUTE COUNT (BEAKER) (test 0.50 K/ L 1.18-3.74 ivsw=053) MONOCYTES ABSOLUTE COUNT (BEAKER) (test 0.66 K/ L 0.24-0.36 fthb=253) EOSINOPHILS ABSOLUTE COUNT (BEAKER) (test 0.00 K/ L 0.04-0.36 bpqo=412) BASOPHILS ABSOLUTE COUNT (BEAKER) (test 0.00 K/ L 0.01-0.08 gtdp=079) IMMATURE GRANULOCYTES-RELATIVE PERCENT (BEAKER) 0 % 0-1 (test lwbr=3923) [id number] 00:43:00 Test Item Value Reference Range Comments PROTIME (BEAKER) (test wufo=044) 17.0 seconds 11.7-14.7 INR (BEAKER) (test glhk=236) 1.4 <=5.9 PARTIAL THROMBOPLASTIN TIME (BEAKER) (test > seconds 22.5-36.0 rwro=785) RECOMMENDED COUMADIN/WARFARIN INR THERAPY RANGESSTANDARD DOSE: 2.0 - 3.0 Includes: PROPHYLAXIS forvenous thrombosis, systemic embolization; TREATMENT for venous thrombosis and/or pulmonary embolus.HIGH RISK: Target INR is 2.5-3.5 for patients with mechanical heart valves.POCT-GLUCOSE [id number] 00:09:00 Test Item Value Reference Range Comments POC-GLUCOSE METER (BEAKER) 213 mg/dL 70-110 TESTED AT [place] [id number] [facility] (test adkk=8962) [place] [address] POCT-GLUCOSE [id number] 18:47:00 Test Item Value Reference Range Comments POC-GLUCOSE METER (BEAKER) 219 mg/dL 70-110 TESTED AT [address] (test ogmi=2216) [place] [address] CBC (HEMOGRAM ONLY)2018-05-08 18:03:00 Test Item Value Reference Range Comments WHITE BLOOD CELL COUNT (BEAKER) (test tcwe=274) 6.3 K/ L 3.5-10.5 RED BLOOD CELL COUNT (BEAKER) (test bmsx=876) 3.12 M/ L 3.93-5.22 HEMOGLOBIN (BEAKER) (test coaa=888) 9.1 GM/DL 11.2-15.7 HEMATOCRIT (BEAKER) (test rsxq=565) 30.6 % 34.1-44.9 MEAN CORPUSCULAR VOLUME (BEAKER) (test nxin=048) 98.1 fL 79.4-94.8 MEAN CORPUSCULAR HEMOGLOBIN (BEAKER) (test 29.2 pg 25.6-32.2 ymnf=851) MEAN CORPUSCULAR HEMOGLOBIN CONC (BEAKER) (test 29.7 GM/DL 32.2-35.5 xrdi=143) RED CELL DISTRIBUTION WIDTH (BEAKER) (test 21.8 % 11.7-14.4 ptwj=088) PLATELET COUNT (BEAKER) (test gbph=544) 147 K/CU MM 150-450 MEAN PLATELET VOLUME (BEAKER) (test ymgv=830) 10.5 fL 9.4-12.3 NUCLEATED RED BLOOD CELLS (BEAKER) (test 0 /100 WBC 0-0 zqgr=342) POCT-GLUCOSE [id number] 13:06:00 Test Item Value Reference Range Comments POC-GLUCOSE METER (BEAKER) 133 mg/dL 70-110 [facility] [address] [facility] (test gife=8882) [facility] [address] [id number] 11:26:00 Test Item Value Reference Range Comments PROCALCITONIN (BEAKER) (test erqm=8643) 0.11 ng/mL <0.05 SEPSIS RISK (ng/mL)Low: 0.05-0.50Intermediate: 0.51-2.00High: & gt;=2.01BLOOD GAS, [id number] 09:45:00 Test Item Value Reference Range Comments PH ARTERIAL (BEAKER) (test errk=840) 7.42 7.35-7.45 PCO2 ARTERIAL (BEAKER) (test smrq=603) 39 mmHg 35-45 PO2 ARTERIAL (BEAKER) (test muih=500) 64 mmHg 80-90 O2 SATURATION ARTERIAL (BEAKER) (test bexx=077) 92.6 % 96.0-97.0 HCO3 ARTERIAL (BEAKER) (test wsis=652) 25 mmol/L 21-29 BASE EXCESS ARTERIAL (BEAKER) (test dogf=646) 0.6 mmol/L -2.0-3.0 PATIENT TEMPERATURE (BEAKER) (test xtiv=4952) 37.2 C FIO2 (BEAKER) (test hoxq=6234) 24.0 % RAD, CHEST, 1 VIEW, NON [id number] 09:11:00Reason for exam:->/pulm edemaShould this be performed [...] unchanged retrocardiac opacity. No pneumothorax. Signed: Leon Navarroeport Verified Date/Time: 05/08/2018 09:11:23 Reading Location: [facility] Radiology Reading Room Electronically signed by: LEON NAVARRO M.D. on 05/08 09:11 AMTROPONIN [id number] 08:13:00 Test Item Value Reference Range Comments TROPONIN I (BEAKER) (test hupw=511) 0.28 ng/mL 0.00-0.03 Troponin I (TnI) levels [...] failure, acidosis, acute neurological disease, and persistent tachyarrhythmia.[id number] 07:56:00 Test Item Value Reference Range Comments MAGNESIUM (BEAKER) (test ctvk=416) 1.7 mg/dL 1.6-2.6 POCT-GLUCOSE [id number] 06:00:00 Test Item Value Reference Range Comments POC-GLUCOSE METER (BEAKER) 121 mg/dL 70-110 TESTED AT [facility] [address] [place] [address] (test fwih=8113) [facility] [address] [id number] 05:48:00 Test Item Value Reference Range Comments FERRITIN (BEAKER) (test ukew=336) 577 ng/mL 5-275 TSH/FREE T4 IF [id number] 05:48:00 Test Item Value Reference Range Comments THYROID STIMULATING HORMONE (BEAKER) (test 1.73 uIU/mL 0.35-4.94 uahs=760) VITAMIN B12 AND [id number] 05:48:00 Test Item Value Reference Range Comments VITAMIN B12 (BEAKER) (test xnem=440) 677 pg/mL 213-816 FOLATE (BEAKER) (test sazs=421) 15.9 ng/mL >=7.0 IRON, TIBC, % SAT. (WITHOUT FERRITIN)2018-05-08 05:20:00 Test Item Value Reference Range Comments IRON (BEAKER) (test lnfx=210) 29.0 ug/dL 40.0-160.0 TOTAL IRON BINDING CAPACITY (BEAKER) (test 138 ug/dL 250-450 tmrf=209) IRON % SATURATION (2) (BEAKER) (test jjfp=2130) 21 % 20-55 LIPID [id number] 05:18:00 Test Item Value Reference Range Comments TRIGLYCERIDES (BEAKER) (test vjal=701) 77 mg/dL CHOLESTEROL (BEAKER) (test pcls=584) 93 mg/dL HDL CHOLESTEROL (BEAKER) (test omgk=864) 42 mg/dL LDL CHOLESTEROL CALCULATED (BEAKER) (test gamg=029) 36 mg/dL Triglyceride Reference Range: Low Risk <150 Borderline 150- 199 High Risk 200-499 Very High Risk >=500Cholesterol Reference Range: Low Risk <200 Borderline 200-239 High Risk > 240HDL Cholesterol Reference Range: Low Risk >=60 High Risk <40LDL Cholesterol Reference Range: Optimal <100 Near Optimal 100-129 Borderline 130-159 High 160-189 Very High >=190BASIC METABOLIC [id number] 05:16:00 Test Item Value Reference Range Comments SODIUM (BEAKER) (test 138 meq/L 136-145 tsna=059) POTASSIUM (BEAKER) (test 3.2 meq/L 3.5-5.1 nzaz=877) CHLORIDE (BEAKER) (test 102 meq/L 98-107 oinr=336) CO2 (BEAKER) (test 24 meq/L 22-29 znwx=104) BLOOD UREA NITROGEN 16 mg/dL 7-21 (BEAKER) (test bzpj=101) CREATININE (BEAKER) (test 2.34 mg/dL 0.57-1.25 apyb=396) GLUCOSE RANDOM (BEAKER) 104 mg/dL 70-105 (test utzi=883) CALCIUM (BEAKER) (test 8.3 mg/dL 8.4-10.2 jolt=679) EGFR (BEAKER) (test 20 mL/min/1.73 sq m ESTIMATED GFR IS NOT gcnk=1833) ACCURATE CREATININE CLEARANCE IN PREDICTING GLOMERULAR FILTRATION RATE. ESTIMATED GFR IS NOT APPLICABLE FOR DIALYSIS PATIENTS. CBC W/PLT COUNT & AUTO [id number] 05:12:00 Test Item Value Reference Range Comments WHITE BLOOD CELL COUNT (BEAKER) (test wcmf=730) 6.0 K/ L 3.5-10.5 RED BLOOD CELL COUNT (BEAKER) (test edxf=693) 2.76 M/ L 3.93-5.22 HEMOGLOBIN (BEAKER) (test ckvj=192) 8.1 GM/DL 11.2-15.7 HEMATOCRIT (BEAKER) (test xdzh=114) 26.6 % 34.1-44.9 MEAN CORPUSCULAR VOLUME (BEAKER) (test tdtw=963) 96.4 fL 79.4-94.8 MEAN CORPUSCULAR HEMOGLOBIN (BEAKER) (test 29.3 pg 25.6-32.2 mopk=998) MEAN CORPUSCULAR HEMOGLOBIN CONC (BEAKER) (test 30.5 GM/DL 32.2-35.5 swvc=366) RED CELL DISTRIBUTION WIDTH (BEAKER) (test 21.5 % 11.7-14.4 inih=376) PLATELET COUNT (BEAKER) (test dyxm=149) 139 K/CU MM 150-450 MEAN PLATELET VOLUME (BEAKER) (test dkob=602) 10.0 fL 9.4-12.3 NUCLEATED RED BLOOD CELLS (BEAKER) (test 0 /100 WBC 0-0 xuld=280) NEUTROPHILS RELATIVE PERCENT (BEAKER) (test 75 % wytc=872) LYMPHOCYTES RELATIVE PERCENT (BEAKER) (test 11 % ojzb=172) MONOCYTES RELATIVE PERCENT (BEAKER) (test 14 % tcgo=299) EOSINOPHILS RELATIVE PERCENT (BEAKER) (test 1 % bpyc=874) BASOPHILS RELATIVE PERCENT (BEAKER) (test 0 % ivhp=499) NEUTROPHILS ABSOLUTE COUNT (BEAKER) (test 4.48 K/ L 1.56-6.13 jqxi=956) LYMPHOCYTES ABSOLUTE COUNT (BEAKER) (test 0.64 K/ L 1.18-3.74 rzab=498) MONOCYTES ABSOLUTE COUNT (BEAKER) (test 0.82 K/ L 0.24-0.36 ibeb=994) EOSINOPHILS ABSOLUTE COUNT (BEAKER) (test 0.04 K/ L 0.04-0.36 wttl=381) BASOPHILS ABSOLUTE COUNT (BEAKER) (test 0.01 K/ L 0.01-0.08 quwo=834) IMMATURE GRANULOCYTES-RELATIVE PERCENT (BEAKER) 0 % 0-1 (test gfys=6118) POCT-GLUCOSE [id number] 00:11:00 Test Item Value Reference Range Comments POC-GLUCOSE METER (BEAKER) 86 mg/dL 70-110 TESTED AT [address] (test shtr=4818) [place] [address] HEMOGLOBIN AND [id number] 18:56:00 Test Item Value Reference Range Comments HEMOGLOBIN (BEAKER) (test oloo=254) 9.1 GM/DL 11.2-15.7 HEMATOCRIT (BEAKER) (test dgdc=340) 29.7 % 34.1-44.9 POCT-GLUCOSE [id number] 18:46:00 Test Item Value Reference Range Comments POC-GLUCOSE METER (BEAKER) 95 mg/dL 70-110 TESTED AT [address] (test czmx=6218) [place] [address] HEPATITIS B SURFACE [id number] 16:30:00 Test Item Value Reference Range Comments HEPATITIS B SURFACE ANTIGEN (2) (BEAKER) (test Nonreactive Nonreactive wyti=7065) RESPIRATORY PANEL [id number] 10:45:00 Test Item Value Reference Range Comments HUMAN METAPNEUMOVIRUS (BEAKER) (test Not detected Not detected, Equivocal meoe=0707) RHINOVIRUS (BEAKER) (test slmb=8899) Not detected Not detected, Equivocal INFLUENZA A (BEAKER) (test dgsb=9483) Not detected Not detected, Equivocal INFLUENZA A (NO SUBTYPE) (test Not detected, Equivocal kzue=5815) INFLUENZA A SUBTYPE H1 (BEAKER) (test Not detected, Equivocal xajc=1683) INFLUENZA A SUBTYPE H3 (BEAKER) (test Not detected, Equivocal oznc=2193) INFLUENZA A SUBTYPE H1-2009 (BEAKER) Not detected, Equivocal (test msgb=6277) INFLUENZA B (BEAKER) (test vyux=5428) Not detected Not detected, Equivocal RESPIRATORY SYNCYTIAL VIRUS (BEAKER) Not detected Not detected, Equivocal (test xegy=4965) PARAINFLUENZA VIRUS 1 (BEAKER) (test Not detected Not detected, Equivocal nfac=3338) PARAINFLUENZA VIRUS 2 (BEAKER) (test Not detected Not detected, Equivocal wycf=2097) PARAINFLUENZA VIRUS 3 (BEAKER) (test Not detected Not detected, Equivocal bwxl=8312) PARAINFLUENZA VIRUS 4 (BEAKER) (test Not detected Not detected, Equivocal oyos=3484) ADENOVIRUS (BEAKER) (test fxlg=8964) Not detected Not detected, Equivocal CORONAVIRUS 229E (BEAKER) (test Not detected Not detected, Equivocal inbf=3898) CORONAVIRUS HKU1 (BEAKER) (test Not detected Not detected, Equivocal xzyh=8894) CORONAVIRUS NL63 (BEAKER) (test Not detected Not detected, Equivocal ycrj=8495) CORONAVIRUS OC43 (BEAKER) (test Not detected Not detected, Equivocal zjfh=7758) BORDETELLA PERTUSSIS (BEAKER) (test Not detected Not detected, Equivocal ubqj=3088) CHLAMYDOPHILA PNEUMONIAE (BEAKER) (test Not detected Not detected, Equivocal wpbf=5790) MYCOPLASMA PNEUMONIAE (BEAKER) (test Not detected Not detected, Equivocal kihd=8670) Other viruses and bacteria not targeted by this PCR panel cannot be excluded; therefore clinical correlation and follow up of serology, culture results, and other molecular studies is required. The results are not intended to be used as the sole means for clinical diagnosis or patient management decisions. This sample was tested at the [facility] Laboratory using the [employer] Respiratory Panel. It is FDA cleared and has been verified and approved by the [facility] for clinical use on nasal swab specimens. It is not FDA-cleared for use on bronchial wash/lavage samples. However, for this sample type, validation was performed and test characteristics were determined and approved, by [facility] for clinical use under the Clinical Laboratory Improvement Amendments (CLIA) of 1988 requirements. Therefore, FDA clearance isnot required. This laboratory is CLIA-certified and [employer] ([employer])-accredited to perform high complexity testing.RAD, CHEST, 1 VIEW, NON [id number] 09:56:00Reason for exam:->ett locationShould this be performed [...] martinez. No other significant change.. Signed: Massimo Hopkinseport Verified Date/Time: 05/07/2018 09:56:07 Reading Location: [facility] Radiology Reading Room Electronically signed by: MASSIMO HOPKINS M.D. on 09:56 AMBLOOD GAS, [id number] 09:31:00 Test Item Value Reference Range Comments PH VENOUS (BEAKER) (test mopk=610) 7.41 7.32-7.42 PCO2 VENOUS (BEAKER) (test plwp=189) 41 mmHg 41-51 PO2 VENOUS (BEAKER) (test xrdw=271) 26 mmHg 25-40 O2 SATURATION VENOUS (BEAKER) (test tsfv=857) 47.9 % 40.0-70.0 HCO3 VENOUS (BEAKER) (test cnyi=695) 25 mmol/L 21-29 BASE EXCESS VENOUS (BEAKER) (test ghwo=931) 0.4 mmol/L -2.0-3.0 PATIENT TEMPERATURE (BEAKER) (test jccu=3728) 37.0 C FIO2 (BEAKER) (test qtln=9216) 30.0 % VANCOMYCIN LEVEL, [id number] 06:44:00 Test Item Value Reference Range Comments VANCOMYCIN RANDOM (BEAKER) (test bpow=069) 21.7 ug/mL Reference Range: No NormalsTROPONIN [id number] 06:39:00 Test Item Value Reference Range Comments TROPONIN I (BEAKER) (test ezjx=769) 0.28 ng/mL 0.00-0.03 Troponin I (TnI) levels [...] acute neurological disease, and persistent tachyarrhythmia.BASIC METABOLIC [id number] 06:32:00 Test Item Value Reference Range Comments SODIUM (BEAKER) (test 130 meq/L 136-145 lcqw=855) POTASSIUM (BEAKER) (test 4.5 meq/L 3.5-5.1 cxgh=834) CHLORIDE (BEAKER) (test 96 meq/L 98-107 snxt=474) CO2 (BEAKER) (test 22 meq/L 22-29 unyn=823) BLOOD UREA NITROGEN 39 mg/dL 7-21 (BEAKER) (test jvfv=311) CREATININE (BEAKER) (test 4.39 mg/dL 0.57-1.25 lblq=350) GLUCOSE RANDOM (BEAKER) 86 mg/dL 70-105 (test oatv=361) CALCIUM (BEAKER) (test 8.7 mg/dL 8.4-10.2 piwo=587) EGFR (BEAKER) (test 10 mL/min/1.73 sq m ESTIMATED GFR IS NOT vmvj=1061) ACCURATE CREATININE CLEARANCE IN PREDICTING GLOMERULAR FILTRATION RATE. ESTIMATED GFR IS NOT APPLICABLE FOR DIALYSIS PATIENTS. [id number] 06:27:00 Test Item Value Reference Range Comments MAGNESIUM (BEAKER) (test ihcl=561) 1.7 mg/dL 1.6-2.6 LACTIC ACID, [id number] 06:20:00 Test Item Value Reference Range Comments LACTATE BLOOD VENOUS (2) 0.6 mmol/L 0.5-2.2 Specimen slightly hemolyzed (BEAKER) (test licu=9330) CBC W/PLT COUNT & AUTO [id number] 06:18:00 Test Item Value Reference Range Comments WHITE BLOOD CELL COUNT (BEAKER) (test ayvm=753) 6.0 K/ L 3.5-10.5 RED BLOOD CELL COUNT (BEAKER) (test lxdq=515) 3.08 M/ L 3.93-5.22 HEMOGLOBIN (BEAKER) (test fhoo=351) 9.2 GM/DL 11.2-15.7 HEMATOCRIT (BEAKER) (test oqoo=909) 30.2 % 34.1-44.9 MEAN CORPUSCULAR VOLUME (BEAKER) (test ktak=593) 98.1 fL 79.4-94.8 MEAN CORPUSCULAR HEMOGLOBIN (BEAKER) (test 29.9 pg 25.6-32.2 xxoy=215) MEAN CORPUSCULAR HEMOGLOBIN CONC (BEAKER) (test 30.5 GM/DL 32.2-35.5 kchd=691) RED CELL DISTRIBUTION WIDTH (BEAKER) (test 21.1 % 11.7-14.4 imyk=254) PLATELET COUNT (BEAKER) (test zkas=787) 150 K/CU MM 150-450 MEAN PLATELET VOLUME (BEAKER) (test ealb=215) 10.2 fL 9.4-12.3 NUCLEATED RED BLOOD CELLS (BEAKER) (test 0 /100 WBC 0-0 leau=847) NEUTROPHILS RELATIVE PERCENT (BEAKER) (test 92 % yhvs=285) LYMPHOCYTES RELATIVE PERCENT (BEAKER) (test 6 % rpfq=694) MONOCYTES RELATIVE PERCENT (BEAKER) (test 2 % ugfc=708) EOSINOPHILS RELATIVE PERCENT (BEAKER) (test 0 % dwdh=633) BASOPHILS RELATIVE PERCENT (BEAKER) (test 0 % tukm=475) NEUTROPHILS ABSOLUTE COUNT (BEAKER) (test 5.52 K/ L 1.56-6.13 yrjl=414) LYMPHOCYTES ABSOLUTE COUNT (BEAKER) (test 0.33 K/ L 1.18-3.74 paqq=905) MONOCYTES ABSOLUTE COUNT (BEAKER) (test 0.10 K/ L 0.24-0.36 zjmp=332) EOSINOPHILS ABSOLUTE COUNT (BEAKER) (test 0.02 K/ L 0.04-0.36 dfnv=041) BASOPHILS ABSOLUTE COUNT (BEAKER) (test 0.01 K/ L 0.01-0.08 jisy=140) IMMATURE GRANULOCYTES-RELATIVE PERCENT (BEAKER) 1 % 0-1 (test ayrf=6715) B-TYPE NATRIURETIC FACTOR (BNP)2018-05-07 00:58:00 Test Item Value Reference Range Comments B-TYPE NATRIURETIC PEPTIDE (BEAKER) (test 4061 pg/mL 0-100 yjfs=363) URINALYSIS W/ REFLEX URINE [id number] 00:39:00 Test Item Value Reference Range Comments COLOR (BEAKER) (test cbhm=848) Red CLARITY (BEAKER) (test tjzm=640) Cloudy SPECIFIC GRAVITY UA (BEAKER) (test wdll=441) 1.015 1.001-1.035 PH UA (BEAKER) (test uxmq=115) 5.0 5.0-8.0 PROTEIN UA (BEAKER) (test luaj=764) 70 mg/dL Negative GLUCOSE UA (BEAKER) (test mlmj=735) Negative Negative KETONES UA (BEAKER) (test jruy=260) Negative Negative BILIRUBIN UA (BEAKER) (test qyvm=939) Negative Negative BLOOD UA (BEAKER) (test jdtt=723) Large Negative NITRITE UA (BEAKER) (test ouqn=707) Negative Negative LEUKOCYTE ESTERASE UA (BEAKER) (test frjy=858) Moderate Negative UROBILINOGEN UA (BEAKER) (test lfho=554) 0.2 mg/dL 0.2-1.0 RBC UA (BEAKER) (test lgkx=075) 4889 /HPF WBC UA (BEAKER) (test xbuu=915) 206 /HPF BACTERIA (BEAKER) (test lnva=219) Moderate SQUAMOUS EPITHELIAL (BEAKER) (test xmgm=398) 11 /HPF SOURCE(BEAKER) (test lkiz=0526) TROPONIN [id number] 00:17:00 Test Item Value Reference Range Comments TROPONIN I (BEAKER) (test zvsf=054) 0.24 ng/mL 0.00-0.03 Troponin I (TnI) levels [...] acute neurological disease, and persistent tachyarrhythmia.BLOOD GAS, [id number] 23:50:00 Test Item Value Reference Range Comments PH ARTERIAL (BEAKER) (test tkzr=090) 7.31 7.35-7.45 PCO2 ARTERIAL (BEAKER) (test mywy=821) 51 mmHg 35-45 PO2 ARTERIAL (BEAKER) (test zfdb=440) 93 mmHg 80-90 O2 SATURATION ARTERIAL (BEAKER) (test voiw=321) 96.2 % 96.0-97.0 HCO3 ARTERIAL (BEAKER) (test esop=137) 25 mmol/L 21-29 BASE EXCESS ARTERIAL (BEAKER) (test thuj=245) -1.2 mmol/L -2.0-3.0 PATIENT TEMPERATURE (BEAKER) (test njxv=7301) 37.5 C FIO2 (BEAKER) (test tgtn=2969) 40.0 % RAD, CHEST, 1 VIEW, NON [id number] 23:28:00Reason for exam:->respiratory failure, arrived intubatedFINAL REPORT [...] MDReportVerified Date/Time: 05/06/2018 23:28:30 Reading Location : [facility] Diagnostic Imaging Reading Room - [place] [address] RAD, ABDOMEN/KUB, 1 VIEW [id number] 23:28:00Reason for exam:->intubated, NGT from OShould this [...] MDReportVerified Date/Time: 05/06/2018 23:28:30 Reading Location : [facility] Diagnostic Imaging Reading Room - [place] [address] COMPREHENSIVE METABOLIC [id number] 23:04:00 Test Item Value Reference Range Comments TOTAL PROTEIN (BEAKER) 4.9 gm/dL 6.0-8.3 (test vlir=165) ALBUMIN (BEAKER) (test 3.1 g/dL 3.5-5.0 btch=2054) ALKALINE PHOSPHATASE 132 U/L 40-150 (BEAKER) (test watl=060) BILIRUBIN TOTAL (BEAKER) 0.5 mg/dL 0.2-1.2 (test xtvx=520) SODIUM (BEAKER) (test 130 meq/L 136-145 dfzz=525) POTASSIUM (BEAKER) (test 4.4 meq/L 3.5-5.1 lmag=442) CHLORIDE (BEAKER) (test 96 meq/L 98-107 zven=786) CO2 (BEAKER) (test 24 meq/L 22-29 zgug=269) BLOOD UREA NITROGEN 13 mg/dL 7-21 (BEAKER) (test fyar=858) CREATININE (BEAKER) (test 4.33 mg/dL 0.57-1.25 esno=247) GLUCOSE RANDOM (BEAKER) 85 mg/dL 70-105 (test xuod=680) CALCIUM (BEAKER) (test 8.8 mg/dL 8.4-10.2 apir=007) AST (SGOT) (BEAKER) (test 27 U/L 5-34 bfms=037) ALT (SGPT) (BEAKER) (test 25 U/L 6-55 finl=862) EGFR (BEAKER) (test 10 mL/min/1.73 sq m ESTIMATED GFR IS NOT grpl=1812) ACCURATE CREATININE CLEARANCE IN PREDICTING GLOMERULAR FILTRATION RATE. ESTIMATED GFR IS NOT APPLICABLE FOR DIALYSIS PATIENTS. [id number] 23:01:00 Test Item Value Reference Range Comments PROTIME (BEAKER) (test wfxs=510) 14.9 seconds 11.7-14.7 INR (BEAKER) (test ojag=026) 1.2 <=5.9 PARTIAL THROMBOPLASTIN TIME (BEAKER) (test 32.0 seconds 22.5-36.0 shrv=781) RECOMMENDED COUMADIN/WARFARIN INR THERAPY RANGESSTANDARD DOSE: 2.0 - 3.0 Includes: PROPHYLAXIS forvenous thrombosis, systemic embolization; TREATMENT for venous thrombosis and/or pulmonary embolus.HIGH RISK: Target INR is 2.5-3.5 for patients with mechanical heart valves.POCT-GLUCOSE [id number] 22:56:00 Test Item Value Reference Range Comments POC-GLUCOSE METER (BEAKER) 96 mg/dL 70-110 TESTED AT [facility] [address] (test mafh=5064) [facility] [address] [id number] 22:55:00 Test Item Value Reference Range Comments MAGNESIUM (BEAKER) (test krnp=334) 2.2 mg/dL 1.6-2.6 LACTIC ACID, [id number] 22:55:00 Test Item Value Reference Range Comments LACTATE BLOOD ARTERIAL (2) (BEAKER) (test 0.8 mmol/L 0.5-2.2 dyno=4664) CBC W/PLT COUNT & AUTO [id number] 22:51:00 Test Item Value Reference Range Comments WHITE BLOOD CELL COUNT (BEAKER) (test erxh=852) 7.8 K/ L 3.5-10.5 RED BLOOD CELL COUNT (BEAKER) (test idyi=482) 3.20 M/ L 3.93-5.22 HEMOGLOBIN (BEAKER) (test cfte=674) 9.3 GM/DL 11.2-15.7 HEMATOCRIT (BEAKER) (test bumv=201) 31.7 % 34.1-44.9 MEAN CORPUSCULAR VOLUME (BEAKER) (test scmc=430) 99.1 fL 79.4-94.8 MEAN CORPUSCULAR HEMOGLOBIN (BEAKER) (test 29.1 pg 25.6-32.2 lbfb=852) MEAN CORPUSCULAR HEMOGLOBIN CONC (BEAKER) (test 29.3 GM/DL 32.2-35.5 uhnn=093) RED CELL DISTRIBUTION WIDTH (BEAKER) (test 21.0 % 11.7-14.4 nqet=783) PLATELET COUNT (BEAKER) (test pvvh=409) 149 K/CU MM 150-450 MEAN PLATELET VOLUME (BEAKER) (test rbfw=542) 10.4 fL 9.4-12.3 NUCLEATED RED BLOOD CELLS (BEAKER) (test 0 /100 WBC 0-0 lkkw=604) NEUTROPHILS RELATIVE PERCENT (BEAKER) (test 80 % wdpu=304) LYMPHOCYTES RELATIVE PERCENT (BEAKER) (test 8 % csqt=985) MONOCYTES RELATIVE PERCENT (BEAKER) (test 9 % jrkq=004) EOSINOPHILS RELATIVE PERCENT (BEAKER) (test 3 % uurk=885) BASOPHILS RELATIVE PERCENT (BEAKER) (test 0 % buig=340) NEUTROPHILS ABSOLUTE COUNT (BEAKER) (test 6.24 K/ L 1.56-6.13 inyy=234) LYMPHOCYTES ABSOLUTE COUNT (BEAKER) (test 0.60 K/ L 1.18-3.74 ewvn=699) MONOCYTES ABSOLUTE COUNT (BEAKER) (test 0.72 K/ L 0.24-0.36 zjam=608) EOSINOPHILS ABSOLUTE COUNT (BEAKER) (test 0.20 K/ L 0.04-0.36 mxlg=557) BASOPHILS ABSOLUTE COUNT (BEAKER) (test 0.01 K/ L 0.01-0.08 jxjh=335) IMMATURE GRANULOCYTES-RELATIVE PERCENT (BEAKER) 0 % 0-1 (test gwbe=3432) OXYGEN SATURATION, [id number] 22:44:00 Test Item Value Reference Range Comments O2 SATURATION (MEASURED) (BEAKER) (test ssrp=8587) 70.8 % B-TYPE NATRIURETIC [id number] 08:19:00 Test Item Value Reference Range Comments B-TYPE NATRIURETIC PEPTIDE (test code=BNP) > 5000.0 PG/ML 0-100 BASIC METABOLIC [id number] 08:04:00 Test Item Value Reference Range Comments [...] (test code=CA) 9.1 MG/DL 8.4-10.2 CBC W/AUTO [id number] 07:51:00 Test Item Value Reference Range Comments [...] 2 ng/mL are obtained. - XR CHEST [id number] 07:52:00 Patient Name: DALJIT JOHNSON Unit No: [id number] EXAMS: CPT CODE: [id number] XR CHEST 1V 36305 EXAM: Portable chest x-ray Location: B2 COMPARISON: [...] Turk MD CC: Cas Aguayo; FIGUEROA BROOKS [employer] Technologist: Sandra Greenfield RT(R); Yadira Faulkner RT(R) Transcrpt Date/Tm/Trnsp: 04/16/2018 (0752) tGLORIAR.BC0 Orig Print D/T: S: 04/16/2018 (0755) [facility] NAME: DALJIT JOHNSON [address] [address] PHYS: THOJO.04 - [place] [address] : 1930 AGE: 88 SEX: F LOC: Z.I12 A PHONE #: [phone] EXAM DATE: 04/16/2018 STATUS: ADM IN FAX #: [phone] RADIOLOGY NO: PAGE 1 Signed ReportBASIC METABOLIC [id number] 05:30:00 Test Item Value Reference Range Comments [...] (test code=CA) 9.2 MG/DL 8.4-10.2 CBC W/AUTO [id number] 05:06:00 Test Item Value Reference Range Comments [...] (test code=NRBC#) 0.00 K/mm3 0.0-0.1 BASIC METABOLIC [id number] 05:41:00 Test Item Value Reference Range Comments [...] 0.52-1.04 CALCIUM (test code=CA) 10.2 MG/DL 8.4-10.2 [id number] 05:41:00 Test Item Value Reference Range Comments PHOSPHOROUS (test code=PHOS) 3.4 MG/DL 2.5-4.5 [id number] 05:41:00 Test Item Value Reference Range Comments MAGNESIUM (test code=MAG) 2.0 MG/DL 1.6-2.3 CBC W/AUTO [id number] 05:16:00 Test Item Value Reference Range Comments [...] # (test code=NRBC#) 0.0 K/mm3 0.0-0.1 CPK-MB [id number] 00:30:00 Test Item Value Reference Range Comments CREATINE KINASE (CK) (test code=CK) 43 UNITS/L 30-135 CKMB (test code=CKMBT) 2.63 NG/ML 0.0-5.6 CKMB INDEX (test code=CKMBI) 6.1 % 4.0-4.4 [id number] 00:30:00 Test Item Value Reference Range Comments TROPONIN-I (test 0.517 NG/ML 0.012-0.033 CALLED TO JESSICA Virk& code=TROPI) READBACK ON 04/15/18 AT 0030 BY Antelmo Mena HGB [id number] 00:05:00 Test Item Value Reference Range Comments HEMOGLOBIN (test code=HGB) 9.8 G/DL 11.2-14.9 HEMATOCRIT (test code=HCT) 31.5 % 33.2-43.5 CPK-MB [id number] 20:46:00 Test Item Value Reference Range Comments CREATINE KINASE (CK) (test code=CK) 43 UNITS/L 30-135 CKMB (test code=CKMBT) 2.63 NG/ML 0.0-5.6 CKMB INDEX (test code=CKMBI) 6.1 % 4.0-4.4 [id number] 20:46:00 Test Item Value Reference Range Comments TROPONIN-I (test 0.460 NG/ML 0.012-0.033 CALLED TO JESSICA Virk& code=TROPI) READBACK ON 04/14/18 AT 2046 BY Maya Parker CPK-MB [id number] 20:30:00 Test Item Value Reference Range Comments CREATINE KINASE (CK) (test code=CK) 43 UNITS/L 30-135 CKMB (test code=CKMBT) NG/ML 0.0-5.6 CKMB INDEX (test code=CKMBI) % 4.0-4.4 [id number] 20:30:00 Test Item Value Reference Range Comments TROPONIN-I (test code=TROPI) NG/ML 0.0-0.045 LACTIC [id number] 17:43:00 Test Item Value Reference Range Comments LACTIC ACID (test code=LACT) 0.8 MMOL/L 0.7-2.1 CPK-MB [id number] 14:06:00 Test Item Value Reference Range Comments CREATINE KINASE (CK) (test code=CK) 49 UNITS/L 30-135 CKMB (test code=CKMBT) 3.88 NG/ML 0.0-5.6 CKMB INDEX (test code=CKMBI) 7.9 % 4.0-4.4 [id number] 14:06:00 Test Item Value Reference Range Comments TROPONIN-I (test 0.248 NG/ML 0.012-0.033 CALLED TO FAITH.E& READBACK ON code=TROPI) 04/14/18 AT 1405 BY Mike Perez LACTIC [id number] 13:49:00 Test Item Value Reference Range Comments LACTIC ACID (test code=LACT) 0.9 MMOL/L 0.7-2.1 CPK-MB [id number] 13:49:00 Test Item Value Reference Range Comments CREATINE KINASE (CK) (test code=CK) 49 UNITS/L 30-135 CKMB (test code=CKMBT) NG/ML 0.0-5.6 CKMB INDEX (test code=CKMBI) % 4.0-4.4 [id number] 13:49:00 Test Item Value Reference Range Comments TROPONIN-I (test code=TROPI) NG/ML 0.0-0.045 PROTHROMBIN [id number] 11:52:00 Test Item Value Reference Range Comments [...] STAFF: JOSSELYN PETERSON 04/14/18 AT 1052 BY Niles GarrisonHENSIVE METABOLIC [id number] 11:38:00 Test Item Value Reference Range Comments [...] ALKALINE PHOSPHATASE (test 70 UNITS/L 38-126 code=ALKP) [id number] 11:38:00 Test Item Value Reference Range Comments PHOSPHOROUS (test code=PHOS) 3.0 MG/DL 2.5-4.5 [id number] 11:38:00 Test Item Value Reference Range Comments MAGNESIUM (test code=MAG) 2.0 MG/DL 1.6-2.3 LIPOPROTEIN LDL [id number] 11:38:00 Test Item Value Reference Range Comments LIPOPROTEIN LDL DIRECT (test 40 mg/dL 100-129 code=LDLDIR) ===Reference Interval: mg/dL mmol/L ---------Optimal <100 <2.6Near/above optimal 100-129 2.6-3.3Borderline High 130-159 3.4-4.1High 160-189 4.1-4.9Very High >=190 >=4.9=========This LDL result is a direct measurement.========= CPK-MB [id number] 11:38:00 Test Item Value Reference Range Comments CREATINE KINASE (CK) (test code=CK) 51 UNITS/L 30-135 CKMB (test code=CKMBT) 3.07 NG/ML 0.0-5.6 CKMB INDEX (test code=CKMBI) 6.0 % 4.0-4.4 [id number] 11:38:00 Test Item Value Reference Range Comments [...] < 2 ng/mL are obtained. COMPREHENSIVE METABOLIC [id number] 11:27:00 Test Item Value Reference Range Comments [...] ALKALINE PHOSPHATASE (test 70 UNITS/L 38-126 code=ALKP) [id number] 11:27:00 Test Item Value Reference Range Comments PHOSPHOROUS (test code=PHOS) 3.0 MG/DL 2.5-4.5 [id number] 11:27:00 Test Item Value Reference Range Comments MAGNESIUM (test code=MAG) 2.0 MG/DL 1.6-2.3 LIPOPROTEIN LDL [id number] 11:27:00 Test Item Value Reference Range Comments LIPOPROTEIN LDL DIRECT (test code=LDLDIR) mg/dL 100-129 CPK-MB [id number] 11:27:00 Test Item Value Reference Range Comments CREATINE KINASE (CK) (test code=CK) 51 UNITS/L 30-135 CKMB (test code=CKMBT) 3.07 NG/ML 0.0-5.6 CKMB INDEX (test code=CKMBI) 6.0 % 4.0-4.4 [id number] 11:27:00 Test Item Value Reference Range Comments [...] < 2 ng/mL are obtained. COMPREHENSIVE METABOLIC [id number] 10:29:00 Test Item Value Reference Range Comments [...] ALKALINE PHOSPHATASE (test 70 UNITS/L 38-126 code=ALKP) [id number] 10:29:00 Test Item Value Reference Range Comments PHOSPHOROUS (test code=PHOS) 3.0 MG/DL 2.5-4.5 [id number] 10:29:00 Test Item Value Reference Range Comments MAGNESIUM (test code=MAG) 2.0 MG/DL 1.6-2.3 LIPOPROTEIN LDL [id number] 10:29:00 Test Item Value Reference Range Comments LIPOPROTEIN LDL DIRECT (test code=LDLDIR) mg/dL 100-129 CPK-MB [id number] 10:29:00 Test Item Value Reference Range Comments CREATINE KINASE (CK) (test code=CK) 51 UNITS/L 30-135 CKMB (test code=CKMBT) 3.07 NG/ML 0.0-5.6 CKMB INDEX (test code=CKMBI) 6.0 % 4.0-4.4 [id number] 10:29:00 Test Item Value Reference Range Comments TROPONIN-I (test code=TROPI) 0.091 NG/ML 0.012-0.033 PROCALCITONIN (PCT)2018-04-14 10:29:00 Test Item Value Reference Range Comments PROCALCITONIN (PCT) (test code=PROCAL) NG/ML LACTIC [id number] 10:08:00 Test Item Value Reference Range Comments LACTIC ACID (test code=LACT) 2.6 MMOL/L 0.7-2.1 CBC W/AUTO [id number] 09:43:00 Test Item Value Reference Range Comments [...] (test code=NRBC#) 0.0 K/mm3 0.0-0.1 ARTERIAL BLOOD [id number] 08:51:00 Test Item Value Reference Range Comments [...] (test code=COHBGFFIO2) 80 % - XR CHEST [id number] 08:07:00 Patient Name: DALJIT JOHNSON Unit No: [id number] EXAMS: CPT CODE: [id number] XR CHEST 1V 72810 Location: U19. CHEST, FRONTAL VIEW HISTORY: CODE [...] Slater RT (R) Transcrpt Date/Tm/Trnsp: 2018 (0807) PauR.SP17 Orig Print D/T: S: 04/14/2018 (0810) [facility] NAME: DALJIT JOHNSON [id number] [address] PHYS: [place] [address] : 1930 AGE: 88 SEX: F LOC: Z.I12 A PHONE #: [phone] EXAM DATE: 04/14/2018 STATUS: ADM IN FAX #: [phone] RADIOLOGY NO: PAGE 1 Signed ReportGLUCOSE BEDSIDE [id number] 07:26:00 Test Item Value Reference Range Comments GLUCOSE BEDSIDE TESTING (test code=GLUBED) 97 MG/DL 60-99 BASIC METABOLIC [id number] 06:28:00 Test Item Value Reference Range Comments [...] 0.52-1.04 CALCIUM (test code=CA) 8.7 MG/DL 8.4-10.2 [id number] 06:28:00 Test Item Value Reference Range Comments PHOSPHOROUS (test code=PHOS) 3.5 MG/DL 2.5-4.5 [id number] 06:28:00 Test Item Value Reference Range Comments MAGNESIUM (test code=MAG) 1.9 MG/DL 1.6-2.3 CBC W/AUTO [id number] 05:47:00 Test Item Value Reference Range Comments [...] code=NRBC#) 0.0 K/mm3 0.0-0.1 - XR CHEST [id number] 08:19:00 Patient Name: DALJIT JOHNSON Unit No: [id number] EXAMS: CPT CODE: [id number] XR CHEST 1V 27676 LOCATION: T18 EXAM: CHEST 1 VIEW INDICATION: [...] t.SDR.JP19 Orig Print D/T: S: 04/12/2018 (0822) [facility] NAME: DALJIT JOHNSON [facility] [address] [address] PHYS: THOSH.Hemal - [place] [address] : 1930 AGE: 88 SEX: F LOC: Z.358 A PHONE #: [phone] EXAM DATE: STATUS: ADM IN FAX #: [phone] RADIOLOGY NO: PAGE 1 Signed ReportBASIC METABOLIC [id number] 06:15:00 Test Item Value Reference Range [...] (test code=CA) 8.5 MG/DL 8.4-10.2 CBC W/AUTO [id number] 06:01:00 Test Item Value Reference Range Comments [...] (test code=NRBC#) 0.0 K/mm3 0.0-0.1 COMPREHENSIVE METABOLIC [id number] 07:44:00 Test Item Value Reference Range Comments [...] ALKALINE PHOSPHATASE (test 58 UNITS/L 38-126 code=ALKP) [id number] 07:44:00 Test Item Value Reference Range Comments PHOSPHOROUS (test code=PHOS) 4.0 MG/DL 2.5-4.5 [id number] 07:44:00 Test Item Value Reference Range Comments MAGNESIUM (test code=MAG) 1.9 MG/DL 1.6-2.3 B-TYPE NATRIURETIC [id number] 07:38:00 Test Item Value Reference Range Comments B-TYPE NATRIURETIC PEPTIDE (test code=BNP) > 5000.0 PG/ML 0-100 CBC W/AUTO [id number] 07:10:00 Test Item Value Reference Range Comments [...] (test code=NRBC#) 0.0 K/mm3 0.0-0.1 B-TYPE NATRIURETIC [id number] 07:57:00 Test Item Value Reference Range Comments B-TYPE NATRIURETIC PEPTIDE (test code=BNP) > 5000.0 PG/ML 0-100 BASIC METABOLIC [id number] 07:42:00 Test Item Value Reference Range Comments [...] (test code=CA) 8.6 MG/DL 8.4-10.2 CBC W/AUTO [id number] 07:17:00 Test Item Value Reference Range Comments [...] code=NRBC#) 0.0 K/mm3 0.0-0.1 - XR CHEST [id number] 06:50:00 Patient Name: DALJIT JOHNSON Unit No: [id number] EXAMS: CPT CODE: [id number] XR CHEST 1V 71185 Exam: Chest portable erect Location: F6 History: [...] Carrera NP Technologist: Desiree Flores (RT ) ([facility]) Transcrpt Date/Tm/Trnsp: 04/10/2018 (0650) Isaiah.FC Orig Print D/T: S: 04/10/2018 (0654) [facility] NAME: DALJIT JOHNSON [id number] [address] PHYS: THOSH.Hemal Smith DeandreElodia [employer] [place] [address] : 1930 AGE: 88 SEX: F LOC: Z.358 A PHONE #: [phone] EXAM DATE: 04/10/2018 STATUS: ADM IN FAX #: [phone] RADIOLOGY NO: PAGE 1 Signed Report- XR CHEST [id number] 09:10:00 Patient Name: DALJIT JOHNSON Unit No: [id number] EXAMS: CPT CODE: [id number] XR CHEST 1V 82884 LOCATION: T18 EXAM: CHEST 1 VIEW INDICATION: [...] t.SDR.JP19 Orig Print D/T: S: 04/09/2018 (0914) [facility] NAME: DALJIT JOHNSON [address] [address] PHYS: LINETTE Smith [place] [address] : 1930 AGE : 88 SEX: F LOC : Z.358 A PHONE #: [phone] EXAM DATE: 04/09/2018 STATUS : ADM IN FAX #: [phone] RADIOLOGY NO: PAGE 1 Signed ReportBASIC METABOLIC [id number] 05:02:00 Test Item Value Reference Range Comments [...] (test code=CA) 8.6 MG/DL 8.4-10.2 CBC W/AUTO [id number] 04:51:00 Test Item Value Reference Range Comments [...] PATIENT CARE STAFF: JI T- XR CHEST [id number] 07:47:00 Patient Name: DALJIT JOHNSON Unit No: [id number] EXAMS: CPT CODE: [id number] XR CHEST 1V 98104 EXAM: Portable chest x-ray Location: B2 COMPARISON: [...] Cas Aguayo; Elodia Carrera NP Technologist: Sandra Greenfield RT(R) Transcrpt Date/Tm/Trnsp: 04/08/2018 (0747) Isaiah.BC0 Orig Print D/T: S: 2018 (0750) [facility] NAME: DALJIT JOHNSON [id number] [address] PHYS: [facility].Hemal [place] [address] : 1930 AGE: 88 SEX: F LOC: Nadege Michaud PHONE #: [phone] EXAM DATE: 04/08/2018 STATUS: ADM IN FAX #: [phone] RADIOLOGY NO: PAGE 1 Signed ReportB-TYPE NATRIURETIC [id number] 06:08:00 Test Item Value Reference Range Comments B-TYPE NATRIURETIC PEPTIDE (test code=BNP) > 5000.0 PG/ML 0-100 BASIC METABOLIC [id number] 05:57:00 Test Item Value Reference Range Comments [...] (test code=CA) 8.2 MG/DL 8.4-10.2 CBC W/AUTO [id number] 05:51:00 Test Item Value Reference Range Comments [...] # (test code=NRBC#) 0.0 K/mm3 0.0-0.1 HGB [id number] 21:32:00 Test Item Value Reference Range Comments HEMOGLOBIN (test code=HGB) 9.0 G/DL 11.2-14.9 HEMATOCRIT (test code=HCT) 29.0 % 33.2-43.5 Comments to Crm Marketing Executive: POST TRANSFUSIONBASIC METABOLIC [id number] 06:06: 00 Test Item Value Reference Range [...] 0.52-1.04 CALCIUM (test code=CA) 8.3 MG/DL 8.4-10.2 [id number] 06:06:00 Test Item Value Reference Range Comments PHOSPHOROUS (test code=PHOS) 2.8 MG/DL 2.5-4.5 [id number] 06:06:00 Test Item Value Reference Range Comments MAGNESIUM (test code=MAG) 2.0 MG/DL 1.6-2.3 B-TYPE NATRIURETIC [id number] 06:05:00 Test Item Value Reference Range Comments B-TYPE NATRIURETIC PEPTIDE (test code=BNP) > 5000.0 PG/ML 0-100 CBC W/AUTO [id number] 05:38:00 Test Item Value Reference Range Comments [...] # (test code=NRBC#) 0.0 K/mm3 0.0-0.1 DIFFERENTIAL [id number] 16:20:00 Test Item Value Reference Range Comments RBC MORPHOLOGY REQUIRED (test code=RBCM) ABNORMAL POLYCHROMASIA (test code=POLC) FEW NONE HYPOCHROMIA (test code=HYPO) SLIGHT NONE POIKILOCYTOSIS (test code=POIK) FEW NONE ANISOCYTOSIS (test code=ANISO) SLIGHT NONE MICROCYTOSIS (test code=MICR) FEW NONE PLATELET ESTIMATE (test code=PLTEST) ADEQUATE ADEQUATE PLATELET MORPHOLOGY (test code=PLTMORPH) NORMAL NORMAL HGB [id number] 16:20:00 Test Item Value Reference Range Comments HEMOGLOBIN (test code=HGB) 5.6 G/DL 11.2-14.9 CALLED TO STANFORD Fuentes RN & READBACK ON 04/05/18 AT 0253 BY Gordo Nolan HEMATOCRIT (test code=HCT) 18.3 % 33.2-43.5 CALLED TO STANFORD Fuentes RN & READBACK ON 04/05/18 AT 0253 BY Gordo Nolan [id number] 12:14:00 Test Item Value Reference Range Comments HEMOGLOBIN (test code=HGB) 8.7 G/DL 11.2-14.9 BASIC METABOLIC [id number] 06:02:00 Test Item Value Reference Range Comments [...] CALCIUM (test code=CA) 8.3 MG/DL 8.4-10.2 PROTHROMBIN [id number] 05:33:00 Test Item Value Reference Range Comments [...] systemic embolism. 3.0 - 4.5 CBC W/AUTO [id number] 05:15:00 Test Item Value Reference Range Comments [...] RBC # (test code=NRBC#) 0.0 K/mm3 0.0-0.1 [id number] 05:11:00 Test Item Value Reference Range Comments HEMOGLOBIN (test code=HGB) 7.6 G/DL 11.2-14.9 [id number] 01:46:00 Test Item Value Reference Range Comments HEMOGLOBIN (test code=HGB) 8.0 G/DL 11.2-14.9 [id number] 18:54:00 Test Item Value Reference Range Comments HEMOGLOBIN (test code=HGB) 8.6 G/DL 11.2-14.9 GLUCOSE BEDSIDE [id number] 13:33:00 Test Item Value Reference Range Comments GLUCOSE BEDSIDE TESTING (test code=GLUBED) 118 MG/DL 60-99 CHEMISTRY 8 [id number] 13:02:00 Test Item Value Reference Range Comments [...] Range: > or=60 ml/min/1.73 m2 CHEMISTRY 8 [id number] 13:02:00 Test Item Value Reference Range Comments [...] Formula)Reference Range: > or=60 ml/min/1.73 m2 PROTHROMBIN [id number] 10:58:00 Test Item Value Reference Range Comments [...] recurrent systemic embolism. 3.0 - 4.5 DIFFERENTIAL [id number] 10:58:00 Test Item Value Reference Range Comments RBC MORPHOLOGY REQUIRED (test code=RBCM) ABNORMAL POLYCHROMASIA (test code=POLC) FEW NONE HYPOCHROMIA (test code=HYPO) SLIGHT NONE ANISOCYTOSIS (test code=ANISO) SLIGHT NONE MICROCYTOSIS (test code=MICR) FEW NONE PLATELET ESTIMATE (test code=PLTEST) ADEQUATE ADEQUATE PLATELET MORPHOLOGY (test code=PLTMORPH) NORMAL NORMAL HGB [id number] 10:58:00 Test Item Value Reference Range Comments HEMOGLOBIN (test code=HGB) 6.0 G/DL 11.2-14.9 CALLED TO Sonia BABB HGB=6.0 & READBACK ON 04/05/18 AT 1016 BY Wander Wu HEMATOCRIT (test code=HCT) 19.4 % 33.2-43.5 CALLED TO Sonia BABB HCT=19.4& READBACK ON 04/05/18 AT 1019 BY Wander Wu DIFFERENTIAL [id number] 10:19:00 Test Item Value Reference Range Comments RBC MORPHOLOGY REQUIRED (test code=RBCM) PLATELET ESTIMATE (test code=PLTEST) ADEQUATE PLATELET MORPHOLOGY (test code=PLTMORPH) NORMAL HGB [id number] 10:19:00 Test Item Value Reference Range Comments HEMOGLOBIN (test code=HGB) 6.0 G/DL 11.2-14.9 CALLED TO Sonia BABB HGB=6.0 & READBACK ON 04/05/18 AT 1016 BY Wander Wu HEMATOCRIT (test code=HCT) 19.4 % 33.2-43.5 CALLED TO Sonia BABB HCT=19.4& READBACK ON 04/05/18 AT 1019 BY Wander Wu DIFFERENTIAL [id number] 10:19:00 Test Item Value Reference Range Comments RBC MORPHOLOGY REQUIRED (test code=RBCM) PLATELET ESTIMATE (test code=PLTEST) ADEQUATE PLATELET MORPHOLOGY (test code=PLTMORPH) NORMAL HGB [id number] 10:19:00 Test Item Value Reference Range Comments HEMOGLOBIN (test code=HGB) 6.0 G/DL 11.2-14.9 CALLED TO Sonia BABB HGB=6.0 & READBACK ON 04/05/18 AT 1016 BY Wander Wu HEMATOCRIT (test code=HCT) 19.4 % 33.2-43.5 CALLED TO Sonia BABB HCT=19.4& READBACK ON 04/05/18 AT 1019 BY Wander Wu AB HEPATITIS B [id number] 09:17:00 Test Item Value Reference Range Comments AB HEPATITIS B SURFACE (test POSITIVE code=HBSAB) CLINICAL INTERPRETATION OF IMMUNE STATUS NEGATIVE: Inconsistent with immunity to HBV infection, less than 5.0 mIU/mL POSITIVE: Consistent with immunity to HBV infection, greater than 10.0 mIU/mL * HEPATITIS B SURF AB, [id number] 09:17:00 Test Item Value Reference Range Comments [...] HBV infection.~~~~~~~~~~~~~~~~~~ ~~~~~~~~~~~~~~~~~~~~~~~~~~~~ ~~~~~~~~~~~~~~ AG HEPATITIS B [id number] 09:17:00 Test Item Value Reference Range Comments AG HEPATITIS B SURFACE (test code=HBSAG) NEGATIVE NONREACTIVE AB HEPATITIS B [id number] 09:05:00 Test Item Value Reference Range Comments AB HEPATITIS B SURFACE (test code=HBSAB) HEPATITIS B SURF AB, [id number] 09:05:00 Test Item Value Reference Range Comments HEPATITIS B SURF AB, QUANT (test code=HBSABQ) mIU/mL AG HEPATITIS B [id number] 09:05:00 Test Item Value Reference Range Comments AG HEPATITIS B SURFACE (test code=HBSAG) NEGATIVE NONREACTIVE PROTHROMBIN [id number] 07:47:00 Test Item Value Reference Range Comments [...] systemic embolism. 3.0 - 4.5 CBC W/AUTO [id number] 06:13:00 Test Item Value Reference Range Comments WHITE BLOOD CELL (test 4.4 K/MM3 3.8-9.8 code=WBC) RED BLOOD CELL (test code=RBC) 2.05 M/MM3 3.58-4.97 HEMOGLOBIN (test code=HGB) 5.7 G/DL 11.2-14.9 CALLED TO STANFORDP & READBACK ON 04/05/18 AT 0612 BY Teresa Cueto HEMATOCRIT (test code=HCT) 18.4 % 33.2-43.5 CALLED TO Maren COYNE & READBACK ON 04/05/18 AT 06 BY Teresa Cueto MEAN CELL VOLUME (test [...] (test 0.0 K/mm3 0.0-0.1 code=NRBC#) BASIC METABOLIC [id number] 04:43:00 Test Item Value Reference Range Comments [...] (test code=CA) 8.4 MG/DL 8.4-10.2 B-TYPE NATRIURETIC [id number] 03:33:00 Test Item Value Reference Range Comments B-TYPE NATRIURETIC PEPTIDE (test code=BNP) > 5000.0 PG/ML 0-100 DIFFERENTIAL [id number] 03:28:00 Test Item Value Reference Range Comments RBC MORPHOLOGY REQUIRED (test code=RBCM) ABNORMAL POLYCHROMASIA (test code=POLC) FEW NONE HYPOCHROMIA (test code=HYPO) SLIGHT NONE POIKILOCYTOSIS (test code=POIK) FEW NONE ANISOCYTOSIS (test code=ANISO) SLIGHT NONE MICROCYTOSIS (test code=MICR) FEW NONE PLATELET ESTIMATE (test code=PLTEST) ADEQUATE ADEQUATE PLATELET MORPHOLOGY (test code=PLTMORPH) NORMAL HGB [id number] 03:28:00 Test Item Value Reference Range Comments HEMOGLOBIN (test code=HGB) 5.6 G/DL 11.2-14.9 CALLED TO STANFORD Fuentes RN & READBACK ON 04/05/18 AT 0253 BY Gordo Nolan HEMATOCRIT (test code=HCT) 18.3 % 33.2-43.5 CALLED TO STANFORD Fuentes RN & READBACK ON 04/05/18 AT 0253 BY Gordo Nolan DIFFERENTIAL [id number] 02:54:00 Test Item Value Reference Range Comments RBC MORPHOLOGY REQUIRED (test code=RBCM) PLATELET ESTIMATE (test code=PLTEST) ADEQUATE PLATELET MORPHOLOGY (test code=PLTMORPH) NORMAL HGB [id number] 02:54:00 Test Item Value Reference Range Comments HEMOGLOBIN (test code=HGB) 5.6 G/DL 11.2-14.9 CALLED TO STANFORD Fuentes RN & READBACK ON 04/05/18 AT 0253 BY Gordo Nolan HEMATOCRIT (test code=HCT) 18.3 % 33.2-43.5 CALLED TO STANFORD Fuentes RN & READBACK ON 04/05/18 AT 0253 BY Gordo Nolan DIFFERENTIAL [id number] 02:54:00 Test Item Value Reference Range Comments RBC MORPHOLOGY REQUIRED (test code=RBCM) PLATELET ESTIMATE (test code=PLTEST) ADEQUATE PLATELET MORPHOLOGY (test code=PLTMORPH) NORMAL HGB [id number] 02:54:00 Test Item Value Reference Range Comments HEMOGLOBIN (test code=HGB) 5.6 G/DL 11.2-14.9 CALLED TO STANFORD Fuentes RN & READBACK ON 04/05/18 AT 0253 BY Gordo Nolan HEMATOCRIT (test code=HCT) 18.3 % 33.2-43.5 CALLED TO STANFORD Fuentes RN & READBACK ON 04/05/18 AT 0253 BY Gordo Nolan CBC W/AUTO [id number] 23:36:00 Test Item Value Reference Range Comments [...] # (test 0.0 K/mm3 0.0-0.1 code=NRBC#) DIFFERENTIAL [id number] 23:36:00 Test Item Value Reference Range Comments RBC MORPHOLOGY REQUIRED (test code=RBCM) ABNORMAL HYPOCHROMIA (test code=HYPO) SLIGHT NONE POIKILOCYTOSIS (test code=POIK) FEW NONE ANISOCYTOSIS (test code=ANISO) SLIGHT NONE MICROCYTOSIS (test code=MICR) FEW NONE TARGET CELLS (test code=TGT) FEW NONE TEAR DROP CELLS (test code=TEAR) FEW NONE PLATELET ESTIMATE (test code=PLTEST) ADEQUATE ADEQUATE PLATELET MORPHOLOGY (test code=PLTMORPH) NORMAL NORMAL PROTHROMBIN [id number] 22:40:00 Test Item Value Reference Range Comments [...] systemic embolism. 3.0 - 4.5 BASIC METABOLIC [id number] 22:38:00 Test Item Value Reference Range Comments [...] (test code=CA) 8.6 MG/DL 8.4-10.2 HEPATIC FUNCTION [id number] 22:38:00 Test Item Value Reference Range Comments TOTAL PROTEIN (test code=PROT) 5.1 G/DL 6.3-8.2 ALBUMIN (test code=ALB) 2.9 G/DL 3.5-5.0 BILIRUBIN TOTAL (test code=BILT) 0.5 MG/DL 0.2-1.3 BILIRUBIN DIRECT (test code=BILD) 0.0 MG/DL 0.0-0.3 SGOT/AST (test code=AST) 42 UNITS/L 14-36 SGPT/ALT (test code=ALT) 43 UNITS/L 9-52 ALKALINE PHOSPHATASE (test code=ALKP) 78 UNITS/L 38-126 [id number] 22:38:00 Test Item Value Reference Range Comments LIPASE (test code=LIP) 308 UNITS/L 23-300 CBC W/AUTO [id number] 22:36:00 Test Item Value Reference Range Comments WHITE BLOOD CELL (test 7.5 K/MM3 3.8-9.8 code=WBC) RED BLOOD CELL (test code=RBC) 2.23 M/MM3 3.58-4.97 HEMOGLOBIN (test code=HGB) 6.1 G/DL 11.2-14.9 CALLED TO MARCUS ON 04/04/18 AT 2229 BY Gordo Nolan [...] # (test 0.0 K/mm3 0.0-0.1 code=NRBC#) DIFFERENTIAL [id number] 22:36:00 Test Item Value Reference Range Comments RBC MORPHOLOGY REQUIRED (test code=RBCM) PLATELET ESTIMATE (test code=PLTEST) ADEQUATE PLATELET MORPHOLOGY (test code=PLTMORPH) NORMAL CBC W/AUTO [id number] 22:36:00 Test Item Value Reference Range Comments [...] # (test 0.0 K/mm3 0.0-0.1 code=NRBC#) DIFFERENTIAL [id number] 22:36:00 Test Item Value Reference Range Comments RBC MORPHOLOGY REQUIRED (test code=RBCM) PLATELET ESTIMATE (test code=PLTEST) ADEQUATE PLATELET MORPHOLOGY (test code=PLTMORPH) NORMAL - XR CHEST [id number] 22:34:00 Patient Name: DALJIT JOHNSON Unit No: [id number] EXAMS: CPT CODE: [id number] XR CHEST 1V [id number] AFTER HOURS SERVICE ON: 04/04/2018 10:33 PM [...] 04/04/2018 (2233) [id number] Orig Print D/T: S: ([id number])[facility] NAME: DALJIT JOHNSON [id number] [address] PHYS: [email or web address] - [place] [address] : 3AGE: 88 SEX: F LOC: [facility] PHONE #: [phone] EXAM DATE: 04/04/2018 STATUS: REG ER FAX #: [phone] RADIOLOGY NO: PAGE 1 Signed Report
[2018-07-13 23:43] LABS: Arterial Blood Carboxyhemoglob 1.2 % (0-1.5); Blood O2 Saturation 91.7 % (92-98.5)
[2018-07-14 02:25] LABS: Albumin 3.2 g/dL (3.4-5.0); Bilirubin Direct 0.1 mg/dL (0-0.2); Bilirubin Total 0.3 mg/dL (0.2-1.0); Magnesium 2.3 mg/dL (1.8-2.4); Protein, Total 5.9 g/dL (6.4-8.2); Troponin (Emerg Dept Use Only) 0.31 ng/mL (0.0-0.045)
[2018-07-14 02:26] LABS: Potassium 5.9 mmol/L (3.5-5.1)
[2018-07-14] MEDS ORDERED: INSULIN -REGULAR HUMAN 50 UNIT/0.5 ML ML ONE (04:09)
[2018-07-14] MEDS ORDERED: ALBUTEROL 2.5 MG/3 ML NEB SOL ONE (04:10)
[2018-07-14] MEDS ORDERED: D50W 25 GM/50 ML SYRINGE IV ONE (04:10)
--- NOTE | 2018-07-14 06:16 | EDPHYS ---
Physician Documentation [facility] Name: Bárbara Thakkar Age: 88 yrs Sex: Female : 1930 Arrival Date: 07/13/2018 Time: 22:32 Bed 3 Private MD: ED Physician Jim Montanez HPI: 07/14 06:23 This 88 yrs old Female presents to ER via EMS with complaints of chest pain. gs 06:23 The patient or guardian reports chest pain that is located primarily in the anterior gs chest wall. Onset: acutely, just prior to arrival. The pain radiates to the left shoulder, the left scapula. Associated signs and symptoms: Pertinent positives: shortness of breath. The chest pain is described as a heaviness. Duration: The patient or guardian reports a single episode, that is still ongoing. Modifying factors: The symptoms are alleviated by nothing. the symptoms are aggravated by nothing. Severity of pain: At its worst the pain was moderate in the emergency department the pain is unchanged. The patient has experienced similar episodes in the past, a few times. Historical: - Allergies: 07/13 22:47 acetylcysteine; ea 22:47 Ciprofloxacin; ea 22:47 Iodinated Contrast Media - IV Dye; ea 22:47 PENICILLINS; ea - Home Meds: 22:47 amiodarone 200 mg Oral tab [Active]; Anoro Ellipta inhalation [Active]; aspirin 81 mg ea Oral chew [Active]; carvedilol 3.125 mg Oral tab [Active]; ipratropium-albuterol 0.5 mg-3 mg(2.5 mg base)/3 mL Inhl nebu [Active]; pravastatin 80 mg Oral tab [Active]; - PMHx: 22:47 COPD; Pacemaker; Hypertension; High Cholesterol; Hemodialysis-MWF; ESRD; ea - PSHx: 22:47 Pacemaker; Dialysis catheter to left upper chest; ea - Immunization history:: Adult Immunizations up to date. - Social history:: Smoking status: Patient/guardian denies using tobacco. - Ebola Screening: : No symptoms or risks identified at this time. ROS: 07/14 06:23 All other systems are negative. gs Exam: 06:23 Head/Face: Normocephalic, atraumatic. Eyes: Pupils equal round and reactive to light, gs extra-ocular motions intact. Lids and lashes normal. Conjunctiva and sclera are non-icteric and not injected. Cornea within normal limits. Periorbital areas with no swelling, redness, or edema. ENT: Nares patent. No nasal discharge, no septal abnormalities noted. Tympanic membranes are normal and external auditory canals are clear. Oropharynx with no redness, swelling, or masses, exudates, or evidence of obstruction, uvula midline. Mucous membranes moist. Neck: Trachea midline, no thyromegaly or masses palpated, and no cervical lymphadenopathy. Supple, full range of motion without nuchal rigidity, or vertebral point tenderness. No Meningismus. Chest/axilla: Normal chest wall appearance and motion. Nontender with no deformity. No lesions are appreciated. Cardiovascular: Regular rate and rhythm with a normal S1 and S2. No gallops, murmurs, or rubs. Normal PMI, no JVD. No pulse deficits. 06:23 Abdomen/GI: Soft, non-tender, with normal bowel sounds. No distension or tympany. No guarding or rebound. No evidence of tenderness throughout. Back: No spinal tenderness. No costovertebral tenderness. Full range of motion. Skin: Warm, dry with normal turgor. Normal color with no rashes, no lesions, and no evidence of cellulitis. MS/ Extremity: Pulses equal, no cyanosis. Neurovascular intact. Full, normal range of motion. Neuro: Awake and alert, GCS 15, oriented to person, place, time, and situation. Cranial nerves II-XII grossly intact. Motor strength 5/5 in all extremities. Sensory grossly intact. Cerebellar exam normal. Normal gait. 06:23 Constitutional: The patient appears alert, awake, in obvious distress, moderately distressed. 06:23 Respiratory: moderate respiratory distress is noted, Respirations: tachypnea, Breath sounds: wheezing: that is mild. 06:23 ECG was reviewed by the Attending Physician. 06: ECG was reviewed by the Attending Physician. Vital Signs: 07/13 22:48 BP 109 / 59; Pulse 60; Resp 20; Temp 97.6; Pulse Ox 97% on 2 lpm NC; Weight 63.5 kg; ea Height 5 ft. 0 in. (152.40 cm); Pain 8/10; 23:45 BP 112 / 57; Pulse 60; Resp 20; Pulse Ox 100% on 2 lpm NC; ea 07/14 00:40 BP 109 / 48; Pulse 58; Resp 18; Pulse Ox 99% on 2 lpm NC; mt 01:16 BP 103 / 53; Pulse 60; Resp 18; Pulse Ox 100% on 2 lpm NC; mt 01:59 BP 115 / 45; Pulse 60; Resp 18; Pulse Ox 100% on 2 lpm NC; ea 02:30 BP 116 / 52; Pulse 60; Resp 18; Pulse Ox 100% ; ea 03:50 BP 116 / 53; Pulse 59; Resp 22; Pulse Ox 100% on 2 lpm NC; mt 05:30 BP 123 / 51; Pulse 60; Resp 18; Temp 97.8; Pulse Ox 100% on 2 lpm NC; ea 06:09 BP 131 / 50; Pulse 60; Resp 20; Pulse Ox 100% on 2 lpm NC; mt 07:00 BP 122 / 50; Pulse 60; Resp 14; Pulse Ox 100% ; bp 08:00 BP 122 / 51; Pulse 60; Resp 14; Pulse Ox 100% ; bp 09:00 BP 126 / 50; Pulse 60; Resp 16; Pulse Ox 100% ; bp 09:59 BP 135 / 55; Pulse 60; Resp 14; Pulse Ox 100% ; bp 10:51 BP 133 / 53; Pulse 60; Resp 17; Temp 98; Pulse Ox 100% ; bp 07/13 22:48 Body Mass Index 27.34 (63.50 kg, 152.40 cm) MDM: 07/13 22:36 Patient medically screened. 07/14 06:23 Differential diagnosis: coronary artery disease chest wall pain, pneumonia, unstable gs angina. Data reviewed: vital signs, nurses notes, lab test result(s), EKG, radiologic studies. 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 07/13 22:33 Order name: Basic Metabolic Panel [facility] 07/13 22:33 Order name: CBC with Diff [facility] 07/13 22:33 Order name: PT-INR; Complete Time: 00:44 [facility] 07/13 22:35 Order name: CBC with Automated Diff; Complete Time: 00:44 [facility] 07/13 22:40 Order name: ABG 07/13 22:40 Order name: Blood Culture* 07/13 23:47 Order name: Basic Metabolic Panel; Complete Time: 02:44 EDMS 07/13 23:47 Order name: Liver (Hepatic) Function; Complete Time: 02:44 EDMS 07/13 23:47 Order name: Troponin (Emerg Dept Use Only); Complete Time: 02:44 EDMS 07/13 22:33 Order name: XRAY Chest (1 view) [facility] 07/13 22:33 Order name: EKG; Complete Time: 22:35 [facility] 07/13 22:33 Order name: Cardiac monitoring; Complete Time: 22:34 [facility] 07/13 22:33 Order name: EKG - Nurse/Tech; Complete Time: 22:34 [facility] 07/13 22:33 Order name: IV Saline Lock; Complete Time: 22:37 [facility] 07/13 23:47 Order name: NT PRO-BNP; Complete Time: 02:44 EDMS 07/13 23:47 Order name: Magnesium; Complete Time: 02:44 EDKY 07/14 06:09 Order name: EKG; Complete Time: 06:10 07/13 22:33 Order name: Labs collected and sent; Complete Time: 22:51 [facility] 07/13 22:33 Order name: O2 Per Protocol; Complete Time: 22:35 [facility] 07/13 22:33 Order name: O2 Sat Monitoring; Complete Time: 22:35 [facility] 07/14 06:09 Order name: EKG - Nurse/Tech; Complete Time: 06:23 gs EC:23 Rate is 60 beats/min. Rhythm is regular with AV sequential paced. QRS interval is gs prolonged. ST Segment is depressed in leads I, aVL, V2. Clinical impression: Abnormal EKG without significant change. Interpreted by me. 06:23 Rate is 60 beats/min. Rhythm is regular with AV sequential paced. QRS interval is gs prolonged. ST Segment is depressed in leads I, aVL, V2, V5, V6. Clinical impression: Cardiac ischemia. Interpreted by me. Administered Medications: 07/13 23:50 Drug: Albuterol 2.5 mg Route: Inhalation; [facility] 07/14 04:00 Drug: Albuterol 2.5 mg Route: Inhalation; ea 05:00 Follow up: Response: No adverse reaction ea 04:00 Drug: Insulin Regular Human 10 units {Co-Signature: jd3 (Brandin Silva RN).} Route: ea IVP; Site: left hand; 05:00 Follow up: Response: No adverse reaction ea 04:00 Drug: D50W 50 ml Route: IVP; Site: left hand; ea 06:27 Follow up: Response: No adverse reaction ea 06:43 Drug: fentaNYL (PF) 25 mcg Route: IVP; Site: left hand; ea 06:58 Follow up: Response: No adverse reaction; Pain is decreased ea 06:43 Drug: Aspirin Chewable Tablet 324 mg Route: PO; ea 06:59 Follow up: Response: No adverse reaction ea 06:58 Drug: Lovenox 60 mg Route: Sub-Q; Site: left lower abdomen; ea 07:21 Follow up: Response: No adverse reaction bp Disposition: 06:23 Critical Care:. gs Disposition: 07/14/18 06:16 Transfer ordered to Other Acute Care Facility. Diagnosis is Unstable angina. - Reason for transfer: Higher level of care. - Accepting physician is tbd. - Condition is Stable. - Problem is new. - Symptoms have improved. Critical care time excluding procedures: 06:23 Critical care time: Bedside Care: 10 minutes, Consultation: 10 minutes, Family gs Intervention: 10 minutes. Total time: 30 minutes Signatures: Dispatcher [employer] Claire Rivera RN RN ea Starr, Gregory, MD MD gs Davies, Jonathon, RN RN jd3 Albert Garvey RN RN bp Jonathon Davies RN jd3 Corrections: (The following items were deleted from the chart) 07/13 23:46 22:35 Basic Metabolic Panel ordered. EDKY EDKY 23:46 22:35 HEPATIC FUNCTION+C.LAB.BRZ ordered. EDKY EDMS 23:46 22:35 MAGNESIUM+C.LAB.BRZ ordered. EDKY EDKY 23:46 22:35 PROBNP+C.LAB.BRZ ordered. EDKY EDKY 23:46 22:35 TROPONIN (EMERG DEPT USE ONLY)+C.LAB.BRZ ordered. [facility] EDKY 07/14 11:08 06:16 07/14/2018 06:16 Transfer ordered to Other Acute Care Facility. Diagnosis is bp Unstable angina. Reason for transfer: Higher level of care. Accepting physician is tbd. Condition is Stable. Problem is new. Symptoms have improved. gs
--- NOTE | 2018-07-14 06:16 | ER ---
Nurse's Notes [facility] Name: Bárbara Thakkar Age: 88 yrs Sex: Female : 1930 Arrival Date: 07/13/2018 Time: 22:32 Bed 3 Private MD: Diagnosis: Unstable angina Presentation: 07/13 22:34 Presenting complaint: EMS states: Pt complained of chest pain 45 minutes ago during a ea breathing treatment. Transition of care: patient was not received from another setting of care. Onset of symptoms was July 13, 2018. Risk Assessment: Do you want to hurt yourself or someone else? Patient reports no desire to harm self or others. Initial Sepsis Screen: Does the patient meet any 2 criteria? No. Patient's initial sepsis screen is negative. Does the patient have a suspected source of infection? No. Patient's initial sepsis screen is negative. Care prior to arrival: 20 G to left AC. 22:34 Method Of Arrival: EMS: [facility] ea 22:34 Acuity: CECE 3 ea Triage Assessment: 22:34 General: Appears uncomfortable, Behavior is calm, cooperative, appropriate for age. ea Pain: Complains of pain in diaphragm Pain currently is 8 out of 10 on a pain scale. Quality of pain is described as aching. Neuro: Level of Consciousness is awake, alert, obeys commands, Oriented to person, place. Cardiovascular: Patient's skin is warm and dry. Respiratory: Airway is patent Respiratory effort is even, unlabored, Respiratory pattern is regular, symmetrical, Breath sounds are diminished bilaterally. Derm: Skin is pink, warm \T\ dry. Historical: - Allergies: 22:47 acetylcysteine; ea 22:47 Ciprofloxacin; ea 22:47 Iodinated Contrast Media - IV Dye; ea 22:47 PENICILLINS; ea - Home Meds: 22:47 amiodarone 200 mg Oral tab [Active]; Anoro Ellipta inhalation [Active]; aspirin 81 mg ea Oral chew [Active]; carvedilol 3.125 mg Oral tab [Active]; ipratropium-albuterol 0.5 mg-3 mg(2.5 mg base)/3 mL Inhl nebu [Active]; pravastatin 80 mg Oral tab [Active]; - PMHx: 22:47 COPD; Pacemaker; Hypertension; High Cholesterol; Hemodialysis-MWF; ESRD; ea - PSHx: 22:47 Pacemaker; Dialysis catheter to left upper chest; ea - Immunization history:: Adult Immunizations up to date. - Social history:: Smoking status: Patient/guardian denies using tobacco. - Ebola Screening: : No symptoms or risks identified at this time. Screenin:34 Abuse screen: Denies threats or abuse. Nutritional screening: No deficits noted. ea Tuberculosis screening: No symptoms or risk factors identified. Fall Risk IV access (20 points). Assessment: 07/14 00:30 Reassessment: Patient and/or family updated on plan of care and expected duration. Pain ea level reassessed. Patient is alert, oriented x 3, equal unlabored respirations, skin warm/dry/pink. 01:03 Reassessment: Patient and/or family updated on plan of care and expected duration. Pain ea level reassessed. Patient is alert, oriented x 3, equal unlabored respirations, skin warm/dry/pink. 02:29 Reassessment: Patient and/or family updated on plan of care and expected duration. Pain ea level reassessed. Pt resting with eyes closed. Respirations even and unlabored. Chest expansions even and symmetrical. No s/s of pain or discomfort noted at this time. 03:55 Reassessment: Patient and/or family updated on plan of care and expected duration. Pain ea level reassessed. Patient is alert, oriented x 3, equal unlabored respirations, skin warm/dry/pink. 04:40 Reassessment: Patient and/or family updated on plan of care and expected duration. Pain ea level reassessed. Patient is alert, oriented x 3, equal unlabored respirations, skin warm/dry/pink. 07:00 Reassessment: RECD REPORT FROM MAMIE ARCOS. 88YO WF P/W CP, NOW DX WITH NC. TRANSFER IN bp PROCESS. 07:22 Reassessment: Spoke with Helen subassembly supervisor who reports she has been speaking with ss Dr. Ellis to get the patient transferred, however both of the telemetry floors are full currently and she is attempting to clear a bed for the patient. 09:57 Reassessment: REPORT TO BRENNAN ARCOS AT [facility]. TRANSPORT PENDING. bp 10:50 Reassessment: PT REFUSE TRANSPORT VIA [facility]. [facility] IN ROUTE. bp 11:06 Reassessment: [facility] AT B/S FOR TRANSPORT. bp Vital Signs: 07/13 22:48 BP 109 / 59; Pulse 60; Resp 20; Temp 97.6; Pulse Ox 97% on 2 lpm NC; Weight 63.5 kg; ea Height 5 ft. 0 in. (152.40 cm); Pain 8/10; 23:45 BP 112 / 57; Pulse 60; Resp 20; Pulse Ox 100% on 2 lpm NC; ea 07/14 00:40 BP 109 / 48; Pulse 58; Resp 18; Pulse Ox 99% on 2 lpm NC; mt 01:16 BP 103 / 53; Pulse 60; Resp 18; Pulse Ox 100% on 2 lpm NC; mt 01:59 BP 115 / 45; Pulse 60; Resp 18; Pulse Ox 100% on 2 lpm NC; ea 02:30 BP 116 / 52; Pulse 60; Resp 18; Pulse Ox 100% ; ea 03:50 BP 116 / 53; Pulse 59; Resp 22; Pulse Ox 100% on 2 lpm NC; mt 05:30 BP 123 / 51; Pulse 60; Resp 18; Temp 97.8; Pulse Ox 100% on 2 lpm NC; ea 06:09 BP 131 / 50; Pulse 60; Resp 20; Pulse Ox 100% on 2 lpm NC; mt 07:00 BP 122 / 50; Pulse 60; Resp 14; Pulse Ox 100% ; bp 08:00 BP 122 / 51; Pulse 60; Resp 14; Pulse Ox 100% ; bp 09:00 BP 126 / 50; Pulse 60; Resp 16; Pulse Ox 100% ; bp 09:59 BP 135 / 55; Pulse 60; Resp 14; Pulse Ox 100% ; bp 10:51 BP 133 / 53; Pulse 60; Resp 17; Temp 98; Pulse Ox 100% ; bp 07/13 22:48 Body Mass Index 27.34 (63.50 kg, 152.40 cm) ea ED Course: 07/13 22:32 Patient arrived in ED. jd3 22:34 Arm band placed on right wrist. Patient placed in an exam room, on a stretcher, on ea oxygen, on posting clerk, on pulse oximetry. 22:36 Jim Montanez MD is Attending Physician. 22:36 Claire Prasad RN is Primary Nurse. ea 22:42 Triage completed. ea 22:42 Patient has correct armband on for positive identification. Placed in gown. Bed in low ea position. Call light in reach. Side rails up X2. 22:47 XRAY Chest (1 view) In Process Unspecified. EDIA 07/14 00:00 Inserted saline lock: 24 gauge in left hand, using aseptic technique. Blood collected. ea 06:43 No provider procedures requiring assistance completed. Patient transferred, IV remains ea in place. 07:05 Report given to Hannah ARCOS and Albert RN. ea 07:15 Primary Nurse role handed off by Claire Prasad RN bp 07:15 Albert Garvey, RN is Primary Nurse. bp Administered Medications: 07/13 23:50 Drug: Albuterol 2.5 mg Route: Inhalation; nish 07/14 04:00 Drug: Albuterol 2.5 mg Route: Inhalation; ea 05:00 Follow up: Response: No adverse reaction ea 04:00 Drug: Insulin Regular Human 10 units {Co-Signature: nish (Brandin Silva RN).} Route: ea IVP; Site: left hand; 05:00 Follow up: Response: No adverse reaction ea 04:00 Drug: D50W 50 ml Route: IVP; Site: left hand; ea 06:27 Follow up: Response: No adverse reaction ea 06:43 Drug: fentaNYL (PF) 25 mcg Route: IVP; Site: left hand; ea 06:58 Follow up: Response: No adverse reaction; Pain is decreased ea 06:43 Drug: Aspirin Chewable Tablet 324 mg Route: PO; ea 06:59 Follow up: Response: No adverse reaction ea 06:58 Drug: Lovenox 60 mg Route: Sub-Q; Site: left lower abdomen; ea 07:21 Follow up: Response: No adverse reaction bp Outcome: 06:16 ER care complete, transfer ordered by . 11:06 Transferred by ground EMS Note: [facility] bp 11:06 Condition: stable 11:06 Instructed on the need for transfer. 11:08 Patient left the ED. bp Signatures: Dispatcher [employer] EDIA Silvia Edwards RN RN ss Thompson, Moriah mt Antunez, Elena, RN RN ea Starr, Gregory, MD MD gs Davies, Jonathon, RN RN jd3 Peltier, Brian, RN RN bp Jonathon Davies RN jd3 Corrections: (The following items were deleted from the chart) 06:46 05:30 BP 123 / 51; Pulse 60bpm; Resp 18bpm; Pulse Ox 100% RA; Temp 97.8F; ea ea
[2018-07-14] MEDS ORDERED: ASPIRIN 81 MG CHEWABLE TABLET ONE (06:52)
[2018-07-14] MEDS ORDERED: FENTANYL CITR 100 MCG/2 ML ONE (06:53)
[2018-07-14] MEDS ORDERED: ENOXAPARIN 60 MG/0.6 ML SQ ONE (07:10)
--- NOTE | 2018-07-14 07:53 | EKG ---
Test Date: 2018-07-14 Test Time: 06:15:12 Chain Link Fence Installer: PENNY MEASUREMENT RESULTS: Intervals: Rate: 60 [place]: QRSD: 186 QT: 560 QTc: 560 [place]: P: [place]: QRS: -82 T: 94 INTERPRETIVE STATEMENTS: paced rhythm Left axis deviation Left ventricular hypertrophy with QRS widening and repolarization abnormality Possible Lateral infarct, age undetermined Abnormal ECG Compared to ECG 07/13/2018 22:33:14 Fusion complex(es) now present Myocardial infarct finding still present Electronically Signed On 07-14-18 07:52:49 CDT by Andrea Rao
--- NOTE | 2018-07-14 07:53 | EKG ---
Test Date: 2018-07-13 Test Time: 22:33:14 Lap Runner: PENNY MEASUREMENT RESULTS: Intervals: Rate: 60 [place]: QRSD: 194 QT: 564 QTc: 564 [place]: P: [place]: QRS: -77 T: 98 INTERPRETIVE STATEMENTS: paced rhythmLeft axis deviation Left ventricular hypertrophy with QRS widening and repolarization abnormality Cannot rule out Anterior infarct, age undetermined Abnormal ECG Compared to ECG 07/09/2018 02:05:51 [facility] Electronically Signed On 07-14-18 07:53:36 CDT by Andrea Rao
--- NOTE | 2018-07-14 09:14 | RAD REPORT ---
EXAM DESCRIPTION: Td Single View07/13/2018 10:46 pm CLINICAL HISTORY: Chest pain COMPARISON: July 11, 2018 FINDINGS: The lungs appear clear of acute infiltrate. The heart is mildly to moderately enlarged. Postsurgical changes involve the chest. Pacemaker leads in place. Such venous line in place. Old rib fractures IMPRESSION: No acute abnormalities displayed
[2018-07-14 11:34] VITALS: O2SAT 100
[2018-07-14 11:47] VITALS: BP 133/53; TEMP 98
== END 2018-07-14 11:08 ==
LOC: ER 22:28
DX: I20.0 Unstable angina (principal); I12.0 Hypertensive chronic kidney disease with stage 5 chronic kidney disease or end stage renal disease; N18.6 End stage renal disease; J44.9 Chronic obstructive pulmonary disease, unspecified; Z79.82 Long term (current) use of aspirin; Z88.0 Allergy status to penicillin; Z88.8 Allergy status to other drugs, medicaments and biological substances; Z95.0 Presence of cardiac pacemaker; Z99.2 Dependence on renal dialysis; Z91.041 Radiographic dye allergy status
CPT/HCPCS: 93005 ×2; 87040 ×2; 85025; 80048; 36415; 83735; 85610; 80076; 84484; 83880; 71045; 82805; 96375; 96372; 96374; 99285; J3010; J1650